=== PATIENT | male | born 1955 | race Caucasian/White ===

== ENCOUNTER 2017-11-06 07:05 | Inpatient (IN) | payer OTHER ==
[2017-10-15 10:31] VITALS: BMI 37.0
--- NOTE | 2017-10-15 11:02 | PAT Medication Instructions ---
Service Date Oct 15, 2017. Current Home Medication List Fish Oil (Dallas-3), 1 CAP PO QAM Gabapentin (Neurontin), 300 MG PO QAM Glipizide (Glucotrol), 5 MG PO BID Metformin Hcl (Glucophage), 1,000 MG PO BID Multiple Vitamin (Multivitamin), 1 TAB PO QAM Naproxen (Aleve), 220 MG PO PRN Omeprazole (Prilosec), 20 MG PO QPM Repaglinide (Prandin), 1 MG PO AC Sitagliptin Phosphate (Januvia), 100 MG PO QAM Medication Instructions For Your Scheduled Surgery - Hold the following medications 2 weeks prior to surgery: Fish Oil (Dallas-3), 1 CAP PO QAM - Hold the following medications 7 days prior to surgery per your surgeon's instructions: Naproxen (Aleve), 220 MG PO PRN - Hold the following medications 48 hours prior to surgery: Metformin Hcl (Glucophage), 1,000 MG PO BID - Hold the following medications the morning of surgery: Sitagliptin Phosphate (Januvia), 100 MG PO QAM Glipizide (Glucotrol), 5 MG PO BID Multiple Vitamin (Multivitamin), 1 TAB PO QAM Repaglinide (Prandin), 1 MG PO AC - TAKE the following medications the morning of surgery with a sip of water: Gabapentin (Neurontin), 300 MG PO QAM - Take the following medications as scheduled the night before surgery: Glipizide (Glucotrol), 5 MG PO BID Omeprazole (Prilosec), 20 MG PO QPM Repaglinide (Prandin), 1 MG PO AC If you have any questions please call us at [phone] or [phone] or [phone]
--- NOTE | 2017-10-15 11:33 | DIAGNOSTIC IMAGING REPORT ---
CHEST 2 VIEWS ROUTINE CLINICAL HISTORY: Preoperative chest COMPARISON STUDY: 08/01/2012 FINDINGS: The cardiac and mediastinal contours are normal. There is no evidence of focal pulmonary consolidation. There is no evidence of failure. No pleural effusions are visualized.[ Increased markings the left lung base are felt to represent a summation with calcified costochondral cartilage. There is ankylosis of the dorsal spine. IMPRESSION: No active disease in the chest. Electronically signed by: Enrico Bansal M.D. 10/15/2017 11:31 AM Dictated Date/Time: 10/15/2017 11:30 AM
[2017-10-15 11:36] LABS: PTT PATIENT 26.1 SECONDS (21.0-31.0)
[2017-10-15 12:11] LABS: HEMATOCRIT 42.2 % (42-52); HEMOGLOBIN 14.5 g/dL (14.0-18.0); MEAN CELL VOLUME 91.5 fL (80-100); MEAN CORPUSCULAR HEMOGLOBIN 31.5 pg (25-34); MEAN CORPUSCULAR HGB CONC 34.4 g/dl (32-36); MEAN PLATELET VOLUME 10.9 fL (7.4-10.4); PLATELET COUNT 144 K/uL (130-400); RED CELL DISTRIBUTION WIDTH CV 13.4 % (11.5-14.5); RED CELL DISTRIBUTION WIDTH SD 44.1 fL (36.4-46.3); WHITE BLOOD COUNT 40.83 K/uL (4.8-10.8)
[2017-10-15 12:12] LABS: BASO % 0.1 %; BASO ABS # 0.06 K/uL (0-0.2); EOS % 0.3 %; EOS ABS # 0.11 K/uL (0-0.5); IG# 0.06 K/uL (0.00-0.02); LYMPH % 89.2 %; LYMPH ABS # 36.42 K/uL (1.2-3.4); MONO % 1.1 %; MONO ABS # 0.46 K/uL (0.11-0.59); NEUT % 9.2 %; NEUT ABS # 3.72 K/uL (1.4-6.5)
--- NOTE | 2017-10-23 15:10 | HISTORY & PHYSICAL EXAMINATION ---
DATE OF ADMISSION: 11/06/2017 CHIEF COMPLAINT: Left knee pain. HISTORY OF PRESENT ILLNESS: Mr. Castro is a 62-year-old male with a multiple-year history of left knee pain. The patient rates his pain a 9/10. He has pain with his daily activities. He has limited standing and walking tolerance. Pain is worse with weightbearing. The patient has failed injections, bracing, PT, and NSAIDS without relief. He has failed conservative treatment and is scheduled for a left knee replacement. PAST MEDICAL HISTORY: Diabetes with an A1c of 8.1, sleep apnea with CPAP. He denies heart disease or DVT. PAST SURGICAL HISTORY: Bilateral rotator cuff repair and C4 cervical fusion. SOCIAL HISTORY: The patient drinks 3-4 drinks per week. He denies tobacco use. He lives in a single-dannie home. 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 FAMILY HISTORY: Negative for DVT. MEDICATIONS: Metformin 1000 mg b.i.d., repaglinide 1 tablet 3 times daily, Tradjenta 5 mg daily, omeprazole 20 mg daily, omega-3 one daily, multivitamin, gabapentin 300 mg t.i.d., Aleve 220 mg daily, Januvia 1 daily. ALLERGIES: None. REVIEW OF SYSTEMS: See HPI. Ten other systems reviewed, all negative. PHYSICAL EXAMINATION: VITAL SIGNS: Height 5 feet 1 inch, weight 266 pounds, BMI is 37. GENERAL: This is a well-developed, well-nourished male who is alert and oriented x3. Mood and affect are appropriate. HEENT: Normocephalic, atraumatic. Mucous membranes are moist and intact. NECK: Supple without lymphadenopathy. HEART: Regular rate and rhythm without murmurs, rubs or gallops. LUNGS: Clear to auscultation without wheezes or rhonchi. ABDOMEN: Soft and nontender. Bowel sounds are equal and active. EXTREMITIES: No ecchymosis, redness or warmth. He has varus deformity. Range of motion is from 3-115 degrees with +1 laxity. He is neurovascularly intact with +1 distal edema. X-RAY EXAMINATION: AP and lateral views show joint space narrowing and osteophyte formation. IMPRESSION: Degenerative joint disease, left knee. PLAN: The patient will be admitted for a left total knee arthroplasty. We will plan on aspirin for DVT prophylaxis. The [facility]. The patient's last A1c was 8.1. He understands he has some higher risk for postop complications. The patient is okay to proceed with surgery per Dr. Winters. MORENOD
[~2017-11-06] VITALS: Ht 180.3 cm; Wt 120.9 kg
[2017-11-06] VITALS (8 sets, daily range): BP systolic 105–173; BP diastolic 58–81; PULSE 67–82; TEMP 36.5–36.7; O2SAT 94–98; BMI 37.0
[2017-11-06] MEDS: TRANEXAMIC ACID INJ 1,000 MG x 2 Bags IV SCH ×4 (06:30→08:55)
[~2017-11-06 07:05] MED LIST: ACETAMINOPHEN 500 MG TAB PO SCH; BUPIVACAINE 0.5 % 5 MG/1 ML PF 10ML VIAL ONE; CEFAZOLIN 3000MG IV PUSH 22.5 ML IV SCH; CeleBREX 200 MG CAP PO SCH; DEXAMETHASONE 4 MG TAB PO SCH; FAMOTIDINE 20 MG TAB PO SCH; GABA-113 PO; GABAPENTIN 600 MG PO SCH; GLIP5TAB11 PO; LACTATED RINGER'S 1000ML 1,000 ML IV SCH; LACTATED RINGER'S 1000ML 500 ML IV SCH; METF-384 PO; METOCLOPRAMIDE HCL 10 MG TAB PO SCH; MULTTAB58 PO; NAPR1TAB9 PO; OMEG10007 PO; OMEP20CA9 PO; REPA1TAB40 PO; ROPIVACAINE 0.5% 5 MG/ML 30 ML VIAL ONE; ROPIVACAINE 5MG/ML 30 ML 150 MG, BUPIVACAINE 0.5% MPF INJ 30 ML, EpINEphrine HCL INJ 0.... INFIL SCH; SITA100T3 PO
[2017-11-06] MEDS ORDERED: FENTANYL CITRATE INJ 50 MCG/1 ML 2 ML VIAL ONE (07:49)
[2017-11-06] MEDS ORDERED: MIDAZOLAM HCL 1 MG/ML 2ML VIAL ONE (07:49)
--- NOTE | 2017-11-06 07:55 | History & Physical Bridge Note ---
H&P Re-Evaluation Bridge Note: I have examined the patient, reviewed the History & Physical and in the interval since the performance of the History & Physical I have noted the following changes of clinical significance: No changes noted
[2017-11-06] MEDS ORDERED: PHENYLEPHRINE 100MCG/ML 5ML SYR ONE (07:56)
[2017-11-06] MEDS ORDERED: LIDOCAINE HCL 2% 2 ML VIAL (20MG/ML) ONE (07:56)
[2017-11-06] MEDS ORDERED: EpHEDrine SULFATE 50MG/5ML SYR ONE (07:56)
[2017-11-06] MEDS ORDERED: PROPOFOL IV EMULSION 10 MG/ML 20 ML VIAL IV ONE (07:56)
[2017-11-06] MEDS ORDERED: ORTHO JOINT ANESTHETIC ONE (07:58)
[2017-11-06] MEDS ORDERED: POVIDONE-IODINE OP SOLN 30 ML BTL ONE (07:59)
[2017-11-06] MEDS ORDERED: BACITRACIN 50000 UNIT VIAL ONE (07:59)
[2017-11-06] MEDS ORDERED: ONDANSETRON INJ 2 MG/ML 2 ML VIAL IV PRN ×2 (08:45→11:30)
[2017-11-06] MEDS ORDERED: PHENYLEPHRINE 100MCG/ML 5ML SYR IV PRN (08:45)
[2017-11-06] MEDS ORDERED: EpHEDrine SULFATE INJ 50 MG/ML AMP IV PRN (08:45)
[2017-11-06] MEDS ORDERED: HYDROmorphone INJ 2 MG/ML SYR/VIAL IV PRN (08:45)
[2017-11-06] MEDS ORDERED: ATROPINE SULFATE 0.1 MG/ML 5ML SYR IV PRN (08:45)
[2017-11-06] MEDS ORDERED: HYDROmorphone INJ 2 MG/ML SYR/VIAL ONE (10:13)
[2017-11-06] MEDS ORDERED: ONDANSETRON INJ 2 MG/ML 2 ML VIAL ONE (10:15)
[2017-11-06] MEDS ORDERED: NEOSTIGMINE METHYLSULFATE 5 MG/5 ML SYR ONE (10:15)
[2017-11-06] MEDS ORDERED: SUCCINYLCHOLINE CHLORIDE 20 MG/ML 10 ML VIAL IV ONE (10:15)
[2017-11-06] MEDS ORDERED: GLYCOPYRROLATE INJ 0.2 MG/ML VIAL ONE (10:15)
[2017-11-06] MEDS ORDERED: DEXAMETHASONE SOD INJ 4 MG/ML VIAL ONE (10:15)
[2017-11-06] MEDS ORDERED: ROCURONIUM BROMIDE 10 MG/ML 5 ML VIAL IV ONE (10:15)
[2017-11-06] MEDS ORDERED: LARYING-O-JET KIT (LTA) ONE (10:21)
--- NOTE | 2017-11-06 10:50 | [facility] Post Operative Brief Note ---
Immediate Operative Summary Operative Date Nov 06, 2017. Pre-Operative Diagnosis Left Knee Degenerative Joint Disease Post-Operative Diagnosis Left Knee Degenerative Joint Disease Procedure(s) Performed Left Total Knee Arthroplasty Surgeon Dr. Winters Business Process Architect Surgeon(s) Vic Moser PA-C Estimated Blood Loss 10 ML Findings Consistent with Post-Op Diagnosis Specimens A. Left Knee Bone and Tissue Anesthesia Type MAC Spinal Regional Complication(s) none Disposition Disposition: Recovery Room / PACU
--- NOTE | 2017-11-06 11:15 | OPERATIVE REPORT ---
DATE OF OPERATION: 11/06/2017 PREOPERATIVE DIAGNOSIS: Osteoarthritis, left knee. POSTOPERATIVE DIAGNOSIS: Osteoarthritis, left knee. PROCEDURE: Left total knee arthroplasty. SURGEON: Dr. Winters. DOLLYMAN: Vic Moser PA-C. ANESTHESIA: Spinal. COMPLICATIONS: None. OPERATION AND FINDINGS: Following induction of spinal anesthesia, the patient's left leg was prepped and draped in the usual sterile manner. Limb was exsanguinated with an Esmarch bandage and tourniquet was inflated to 350 mmHg. A longitudinal incision was made anteriorly. Subcutaneous tissue was sharply dissected. Electrocautery was used for hemostasis. Prepatellar bursa was incised and median parapatellar incision was performed. Patella was everted and the knee was flexed. Fat pad was removed to aid in visualization and the anterior and posterior cruciate ligaments were removed. The medial face of the tibia was cleared of soft tissue first with a Bovie and a Barbosa elevator. This tissue was retracted posteriorly using a blunt Hohmann. A Shore retractor was used to expose the synovium above on the anterior aspect of the femur and this was removed down to bone. The PSI guide was placed on the distal femur and two pins were placed anteriorly and kept in position and two additional pins were placed distally and removed. The distal femoral cutting block was placed in position and the distal femoral cut was used in the +0 setting. Next, the cutting block was removed and the cutting block was placed in the distal end of the femur. Care was taken to ensure appropriate external rotation and feeler gauge was used to ensure no notching would occur. The femoral block was centered on the distal femur and in the medial and lateral direction and was fixed using two bone screws. The gold pins were then removed. The oscillating saw was used to create the bone cuts and the distal femoral cutting block was removed and the reciprocating saw was used to further trim the femoral cuts as well as a deep in the area for the trochlear groove. Next, posterior condyle remnants were removed. Following this, a meniscal clamp and knife were utilized to remove the anterior portion of both medial and lateral meniscus. The proximal tibia PSI guide was placed into position and the proximal tibial cutting guide was screwed into position. The extra medullary alignment guide was utilized to ensure appropriate alignment. The proximal tibia was cut and the proximal tibial cutting block was removed and this bone fragment was removed. The appropriate guide was used to perform the notch cut on the distal femur and a lamina penology professor and a cochlear knife were utilized to finish both medial and lateral meniscectomies to remove any remnants of the posterior or anterior cruciate ligaments. Following this, the distal femoral component was impacted into position and blunt Giulia was used to sublux the tibia anteriorly. The proximal tibia was sized and a tibial tray was chosen as the size to be used. This was put into position and appropriate external rotation and a double check with extramedullary alignment guide was performed. The canal for the tibial stem was prepared first with a 17 mm drill and then the punch and a mallet and the trial tibial poly was placed. A was chosen the size to be used. It was brought to extension and the patella was prepared with the patellar reamer. A component was chosen the size to be used. The trial component was placed and knee was taken through a full range of motion and there was found to be no lateral subluxation of the tibia. No lateral release was required. The trials were all removed. The final components were obtained and assembled. Cement was mixed. The knee was thoroughly irrigated and the ortho mix was injected about the knee joint. The final components were cemented into position. After thoroughly suctioning and drying the bone ends, all excess cement was removed. The knee was held in extension while the cement hardened. The wound was irrigated and closed over a Hemovac drain. #1 Vicryl was used to close the extensor mechanism. Subcutaneous tissues closed using 0 Dexon. Skin was closed with cherise. Sterile dressing of Adaptic, 4 x 4's, sterile Webril, and Eligio was applied. The patient tolerated the procedure well. Due to the complex nature of the procedure, the entire surgery was performed with the operational assistance of Vic Moser PA-C. The assistant finance director, under direct supervision, was involved in the actual performance of all aspects of the surgical procedure including hemostasis, tissue retraction and incision, instrument management, patient positioning, and wound closure. IMPLANTS USED: Femoral size 6, tibia size 5, tibial poly 11, patella size 39. CONDITION: Recovery room, stable. I attest to the content of the Intraoperative Record and any orders documented therein. Any exceptions are noted below. RUSLAN
[2017-11-06] MEDS ORDERED: TAMSULOSIN HCL 0.4 MG CAP PO PRN (11:30)
[2017-11-06] MEDS ORDERED: ALUMINUM/MAGNESIUM/SIMETH (MAALOX MAX) 30 ML UDC PO PRN (11:30)
[2017-11-06] MEDS ORDERED: MoRPHine SULFATE 2 MG/ML CARP IV PRN (11:30)
[2017-11-06] MEDS ORDERED: MAGNESIUM HYDROXIDE SUSP 30 ML UDC PO PRN (11:30)
[2017-11-06] MEDS ORDERED: BISACODYL 10 MG SUPP PR PRN (11:30)
[2017-11-06] MEDS ORDERED: TRAMADOL HCL 50 MG TAB PO PRN (11:30)
[2017-11-06] MEDS ORDERED: REPAGLINIDE 1 MG TAB PO SCH (12:00)
--- NOTE | 2017-11-06 12:24 | DIAGNOSTIC IMAGING REPORT ---
L KNEE 1 OR 2 VIEWS ROUTINE CLINICAL HISTORY: AP/LATERAL IN PACU LEFT KNEE joint replacement COMPARISON: None. DISCUSSION: Anatomic alignment posttotal left knee arthroplasty. Good contact between prosthetic and underlying bone. Expected soft tissue postoperative change. Surgical drains are in position. IMPRESSION: Anatomic alignment posttotal left knee arthroplasty. The above report was generated using voice recognition software. It may contain grammatical, syntax or spelling errors. Electronically signed by: Winston Gregory M.D. 11/06/2017 12:23 PM Dictated Date/Time: 11/06/2017 12:22 PM
[2017-11-06] MEDS ORDERED: PHARMACY GLYCEMIC MGMT CONSULT PRN (13:37)
[2017-11-06] MEDS: SODIUM CHLORIDE 0.9% 1000ML 1,000 ML IV SCH ×2 (13:49→23:18)
--- NOTE | 2017-11-06 14:01 | Anesthesiology Progress Note ---
Anesthesia Post Op Note Date & Time Nov 06, 2017 at 14:01 Vital Signs Pain Intensity: 0 Vital Signs Past 12 Hours Date Time Temp Pulse Resp B/P (MAP) Pulse Ox O2 Delivery O2 Flow Rate FiO2 11/06/17 13:30 36.6 71 16 125/69 (87) 96 Nasal Cannula 2.0 11/06/17 13:00 36.5 76 16 132/81 (98) 94 Nasal Cannula 2.0 11/06/17 12:30 Nasal Cannula 3.0 11/06/17 12:30 36.5 67 16 123/69 (87) 98 Nasal Cannula 3.0 11/06/17 12:30 Nasal Cannula 3.0 11/06/17 12:21 134/61 11/06/17 12:18 68 12 92 11/06/17 12:18 68 12 11/06/17 12:17 129/63 11/06/17 12:13 65 12 95 11/06/17 12:13 64 12 11/06/17 12:08 78 15 97 11/06/17 12:08 77 15 11/06/17 12:08 36.9 11/06/17 12:07 71 14 11/06/17 12:07 72 14 137/71 98 11/06/17 12:02 72 23 11/06/17 12:02 71 23 98 11/06/17 12:01 143/73 11/06/17 11:57 68 12 95 11/06/17 11:57 69 12 11/06/17 11:56 126/73 11/06/17 11:55 137/65 11/06/17 11:52 71 13 95 11/06/17 11:52 72 13 11/06/17 11:47 74 12 92 11/06/17 11:47 74 12 11/06/17 11:46 76 16 122/63 96 11/06/17 11:46 76 16 11/06/17 11:41 78 13 128/67 93 11/06/17 11:41 78 13 11/06/17 11:36 78 14 11/06/17 11:36 78 14 136/59 92 11/06/17 11:31 70 14 121/73 96 11/06/17 11:31 71 14 11/06/17 11:28 136/77 11/06/17 11:26 37.1 71 14 136/77 97 Oxymask 10 11/06/17 07:44 36.7 77 18 173/79 96 Room Air Notes Mental Status: alert / awake / arousable, participated in evaluation Pt Amnestic to Procedure: Yes Nausea / Vomiting: adequately controlled Pain: adequately controlled Airway Patency, RR, SpO2: stable & adequate BP & HR: stable & adequate Hydration State: stable & adequate Anesthetic Complications: no major complications apparent
[2017-11-06] MEDS ORDERED: INSULIN HUMAN REGULAR IV BOLUS 3 UNIT in SYRINGE 0 ML IV ONE (14:15)
[2017-11-06] MEDS ORDERED: GLUCAGON FOR INJ 1 MG VIAL SQ PRN (14:30)
[2017-11-06] MEDS ORDERED: GLUCOSE 10 TABS/TUBE PO PRN (14:30)
[2017-11-06] MEDS ORDERED: GLUCOSE 40% GEL 15 GM TUBE PO PRN (14:30)
[2017-11-06] MEDS ORDERED: DEXTROSE 50% 50 ML SYR IV PRN (14:30)
[2017-11-06] MEDS: ACETAMINOPHEN 500 MG TAB PO SCH ×2 (14:30→21:45)
--- NOTE | 2017-11-06 14:34 | Pharmacy Progress Note ---
Glycemic Control Intl Consult Date of Service Nov 06, 2017. Scope Glycemic Pharmacist consulted by Aaron Moser on 11/06/17 for glycemic control and to write orders per [facility] inpatient glycemic control protocol Objective Weight (Kilograms): 120.90 Accuchecks BSG (last 24hrs): Test 11/06/17 07:46 11/06/17 11:32 Bedside Glucose 264 mg/dl (70-99) 279 mg/dl (70-99) Recent Pertinent Medications Outpatient Anti-diabetic Regimen: * Metformin 1000 mg BID + Januvia 100 mg daily + Prandin 1 mg AC * A1c = unknown Risk Factors for Insulin Resistance: * Steroids: Ortho + dex 8 mg PO pre-op, dex 8 mg IV while in OR * Recent Surgery: POD #0 L-TKA * Diet: T2DM Assessment & Plan ASSESSMENT: * 62 yr old M s/p L-TKA with post-operative hyperglycemia. * Unknown outpatient control. A1c ordered for tomorrow. * Pt is maintained on oral antidiabetic agents as an outpatient. Will hold oral agents for admission and utilize SQ basal bolus insulin regimen which is the recommended regimen for inpatient glycemic control. * Will initiate IV insulin infusion for severe hyperglycemia and transition to weight based SQ basal bolus insulin once BSG is at goal * I will give a dose of Lantus around dinnertime (based on 24 hr weight/stress 2) to aid in drip transition PLAN FOR INPATIENT GLYCEMIC CONTROL: * Holding outpatient oral diabetes medications * Starting IV insulin infusion per moderate stress protocol * Goal Range 110 - 180 mg/dl * Basal insulin * LANTUS 40 units SQ x 1 * Bolus insulin * NOVOLOG PCHS per insulin infusion calculator * Please note that the plan above was derived based on current level of insulin resistance and hospital stress. These recommendations are appropriate for inpatient admission only. Plan of care upon discharge will need to be reassessed to avoid potential outpatient hypo/hyperglycemia. Thank you.
[2017-11-06] MEDS: INSULIN REGULAR 250 UNITS in SODIUM CHLORIDE 0.9% 250ML 250 ML IV SCH ×9 (14:40→22:37)
[2017-11-06] MEDS ORDERED: INSULIN GLARGINE SOLOSTAR 100 UNITS/ML 3 ML PEN SC SCH (16:00)
[2017-11-06] MEDS ORDERED: INSULIN ASPART 100 UNITS/ML 3 ML PEN SC SCH (16:00)
[2017-11-06] MEDS ORDERED: COUGH DROP (SUGAR FREE) LOZ 24 LOZ/1 BOX LOZ ONE (18:39)
[2017-11-06] MEDS: CEFAZOLIN IV 2,000 MG in SYRINGE 0 ML IV SCH (18:40)
[2017-11-06] MEDS: FERROUS GLUCONATE 324 MG TAB PO SCH (18:42)
[2017-11-06] MEDS: INSULIN ASPART 100 UNITS/ML 3 ML PEN SC SCH ×2 (18:54→20:58)
[2017-11-06] MEDS: DOCUSATE SODIUM 100 MG CAP PO SCH (21:02)
[2017-11-06] MEDS: SENNA 8.6 MG TAB PO SCH (21:02)
[2017-11-06] MEDS: ASPIRIN 81 MG ECTAB PO SCH (21:03)
[2017-11-06] MEDS: CeleBREX 200 MG CAP PO SCH (21:03)
[2017-11-06] MEDS: OXYCODONE HCL IR 5 MG TAB (IMMEDIATE RELEASE) PO PRN (23:22)
[2017-11-07] MEDS: INSULIN REGULAR 250 UNITS in SODIUM CHLORIDE 0.9% 250ML 250 ML IV SCH ×7 (00:48→09:42)
[2017-11-07] MEDS: CEFAZOLIN IV 2,000 MG in SYRINGE 0 ML IV SCH (01:45)
[2017-11-07] MEDS: ACETAMINOPHEN 500 MG TAB PO SCH ×3 (06:03→21:19)
[2017-11-07] MEDS: OXYCODONE HCL IR 5 MG TAB (IMMEDIATE RELEASE) PO PRN ×4 (06:05→19:47)
[2017-11-07 07:10] LABS: HEMOGLOBIN A1C 8.3 % (4.5-5.6)
[2017-11-07 07:28] LABS: CALCIUM 8.1 mg/dl (8.5-10.1); CREATININE 0.89 mg/dl (0.60-1.40); POTASSIUM 4.3 mmol/L (3.5-5.1)
[2017-11-07 07:33] LABS: HEMATOCRIT 35.2 % (42-52); HEMOGLOBIN 11.8 g/dL (14.0-18.0); MEAN CELL VOLUME 91.2 fL (80-100); MEAN CORPUSCULAR HEMOGLOBIN 30.6 pg (25-34); MEAN CORPUSCULAR HGB CONC 33.5 g/dl (32-36); MEAN PLATELET VOLUME 10.7 fL (7.4-10.4); PLATELET COUNT 168 K/uL (130-400); RED CELL DISTRIBUTION WIDTH CV 13.5 % (11.5-14.5); RED CELL DISTRIBUTION WIDTH SD 44.2 fL (36.4-46.3); WHITE BLOOD COUNT 45.52 K/uL (4.8-10.8)
--- NOTE | 2017-11-07 07:33 | Orthopedic Progress Note ---
Orthopedic Progress Note Date of Service Nov 07, 2017. Subjective Post OP Day: 1 Reports: feeling well Objective N/V intact, dressing C/D/I (Hemovac in place), toes mobile Mild foot drop noted Date Time Temp Pulse Resp B/P (MAP) Pulse Ox O2 Delivery O2 Flow Rate FiO2 11/06/17 23:45 36.6 82 16 105/58 (74) 97 Room Air 11/06/17 23:20 Room Air CPAP 11/06/17 18:57 36.7 74 18 125/63 (83) 96 Nasal Cannula 2.0 11/06/17 15:39 36.5 79 20 111/61 (78) 96 Nasal Cannula 2.0 11/06/17 14:30 36.6 75 20 132/76 (94) 96 Nasal Cannula 2.0 11/06/17 13:30 36.6 71 16 125/69 (87) 96 Nasal Cannula 2.0 11/06/17 13:00 36.5 76 16 132/81 (98) 94 Nasal Cannula 2.0 11/06/17 12:30 Nasal Cannula 3.0 11/06/17 12:30 36.5 67 16 123/69 (87) 98 Nasal Cannula 3.0 11/06/17 12:30 Nasal Cannula 3.0 11/06/17 12:21 134/61 11/06/17 12:18 68 12 92 11/06/17 12:18 68 12 11/06/17 12:17 129/63 11/06/17 12:13 65 12 95 11/06/17 12:13 64 12 11/06/17 12:08 78 15 97 11/06/17 12:08 77 15 11/06/17 12:08 36.9 11/06/17 12:07 71 14 11/06/17 12:07 72 14 137/71 98 11/06/17 12:02 72 23 11/06/17 12:02 71 23 98 11/06/17 12:01 143/73 11/06/17 11:57 68 12 95 11/06/17 11:57 69 12 11/06/17 11:56 126/73 11/06/17 11:55 137/65 11/06/17 11:52 71 13 95 11/06/17 11:52 72 13 11/06/17 11:47 74 12 92 11/06/17 11:47 74 12 11/06/17 11:46 76 16 122/63 96 11/06/17 11:46 76 16 11/06/17 11:41 78 13 128/67 93 11/06/17 11:41 78 13 11/06/17 11:36 78 14 11/06/17 11:36 78 14 136/59 92 11/06/17 11:31 70 14 121/73 96 11/06/17 11:31 71 14 11/06/17 11:28 136/77 11/06/17 11:26 37.1 71 14 136/77 97 Oxymask 10 11/06/17 07:44 36.7 77 18 173/79 96 Room Air Laboratory Results 24 Hours: Test 11/07/17 06:24 Assessment & Plan Assessment: 62 yo male stable POD #1 s/p left TKA, mild foot drop likely secondary to intra- op injection Plan: 1. Med management 2. DVT prophylaxis- ASA, SCDs 3. PT/OT 4. D/C planning- home w/ HH
--- NOTE | 2017-11-07 07:35 | Discharge Instructions ---
Discharge Instructions Date of Service Nov 07, 2017. Admission Reason for Admission: Left Knee Osteoarthritis Discharge Discharge Diagnosis / Problem: Left knee arthritis Discharge Goals Goal(s): Decrease discomfort, Improve function Activity Recommendations Activity Limitations: as noted below Weightbearing Status: Left weightbearing (as tolerated) . Instructions / Follow-Up Instructions / Follow-Up ACTIVITY RECOMMENDATIONS: SELF CARE INSTRUCTIONS AFTER TOTAL KNEE REPLACEMENT A. You may need to continue a physical therapy program after discharge from the hospital. There are several options available to you. Your doctor will assist you in selecting the best one for you. 1. An out-patient facility 2 to 3 times a week for therapy or home therapy. 2. Continue working on all exercises taught to you in the hospital. Your goals should be to increase bending of your knee to 90 degrees and beyond and to fully straighten your knee. B. You may progress at your own pace from walking with a walker or crutches to a cane; then to no assistive devices. C. Make walking a part of your daily routine. Be up as much as comfortable with rest periods throughout the day. Rest with leg elevation is very important. Use the ice wrap frequently for the first 3-4 weeks. D. There are no restrictions on activities. You may ride in a car, shop, participate in director telemetry and all social activities. E. Wear the long elastic stockings (ABRAHAN hose) 20 hours a day for 2 weeks after surgery. They can be removed several times a day for laundering and for a bath. F. You may shower, no tub baths until cleared by your doctor. SPECIAL CARE INSTRUCTIONS: VERY IMPORTANT TO READ AND REVIEW A. There are a few signs you need to watch for after you are home. Call [facility] if you notice any of the followin. Increased severe knee pain. Some pain is expected especially when you exercise. 2. Increased swelling in your leg or knee; pain or swelling of the calf muscle in either lower leg. 3. Any fluid drainage from the incision. 4. Shortness of breath or chest pain. B. Please call [facility] at if you have any concerns or questions about your operation or recovery. The doctor or his nurse will return your call promptly. C. You must take antibiotics before dental work, bladder, bowel or other surgery. Your doctor will provide you with a permanent care to carry describing this precaution. IMPORTANT: * REMEMBER TO TAKE ASPIRIN, 81 MG, TWICE DAILY FOR 4 WEEKS UNLESS OTHERWISE DIRECTED. THIS IS YOUR BLOOD THINNER. * HIGH RISK PATIENTS MAY BE PRESCRIBED A STRONGER BLOOD THINNER. THIS WILL BE PROVIDED AT DISCHARGE. * CALL IF INCREASED PAIN, REDNESS, DRAINAGE OR FEVER GREATER THAT 101. * WEAR ABRAHAN HOSE 20 HOURS PER DAY FOR 2 WEEKS. Silverlon- This is a large adhesive bandage that contains silver ions. This helps your incision heal by fighting off bacteria and protecting it from the outside environment. You are permitted to shower with this dressing. This will remain on your incision for 7 days and then should be removed. Some visible blood or drainage through the dressing window is normal. If there is significant drainage or leaking noted before the 7 days notify your doctor's office immediately. Once removed, keep incision clean and dry. If there is any drainage or redness noted, please call your surgeon. Maintain Zipline closure when removing Silverlon. FOLLOW UP VISIT: If appointment is not already scheduled: Please call [facility] to make a follow-up appointment for 2 weeks after your surgery at . Current Hospital Diet Patient's current hospital diet: Diabetes Type 2 Diet Discharge Diet Recommended Diet: Diabetes Type 2 Diet Procedures Procedures Performed: Left Total Knee Arthroplasty Pending Studies Studies pending at discharge: no Laboratory Results Hemoglobin A1c Test 11/07/17 06:24 Range/Units Estimated Average Glucose 192 mg/dl Hemoglobin A1c 8.3 H 4.5-5.6 % Medical Emergencies . Who to Call and When: Medical Emergencies: If at any time you feel your situation is an emergency, please call 911 immediately. . Non-Emergent Contact Non-Emergency issues call your: Surgeon Call Non-Emergent contact if: temperature is above 101.5, your pain is not controlled, wound has increased drainage, wound has increased redness . "Provider Documentation" section prepared by Tae Caputo PA-C. . [place] Drug Monitoring Program Search Results: patient reviewed within database, no issues identified
[2017-11-07 07:56] VITALS: BP 120/70; PULSE 70; TEMP 36.6; O2SAT 98
--- NOTE | 2017-11-07 08:21 | Anesthesiology Progress Note ---
Anesthesia Post Op Note Date & Time Nov 07, 2017 at 08:20 Vital Signs Pain Intensity: 0.0 Vital Signs Past 12 Hours Date Time Temp Pulse Resp B/P (MAP) Pulse Ox O2 Delivery O2 Flow Rate FiO2 11/07/17 07:56 36.6 70 15 120/70 (87) 98 Room Air 11/06/17 23:45 36.6 82 16 105/58 (74) 97 Room Air 11/06/17 23:20 Room Air CPAP Notes Mental Status: alert / awake / arousable, participated in evaluation Pt Amnestic to Procedure: Yes Nausea / Vomiting: adequately controlled Pain: adequately controlled Airway Patency, RR, SpO2: stable & adequate BP & HR: stable & adequate Hydration State: stable & adequate Anesthetic Complications: no major complications apparent
[2017-11-07 08:25] VITALS: O2SAT 98
[2017-11-07] MEDS: CeleBREX 200 MG CAP PO SCH ×2 (08:47→19:47)
[2017-11-07] MEDS: FERROUS GLUCONATE 324 MG TAB PO SCH ×3 (08:47→18:12)
[2017-11-07] MEDS: MULTIVITAMIN TAB PO SCH (08:47)
[2017-11-07] MEDS: GABAPENTIN 300 MG CAP PO SCH (08:47)
[2017-11-07] MEDS: ASPIRIN 81 MG ECTAB PO SCH ×2 (08:47→19:47)
[2017-11-07] MEDS: DOCUSATE SODIUM 100 MG CAP PO SCH ×2 (08:47→19:46)
[2017-11-07] MEDS: PANTOprazole SOD 40 MG TAB PO SCH (08:47)
[2017-11-07] MEDS: INSULIN ASPART 100 UNITS/ML 3 ML PEN SC SCH ×4 (08:56→21:16)
[2017-11-07] MEDS ORDERED: INSULIN GLARGINE SOLOSTAR 100 UNITS/ML 3 ML PEN SC ONE (09:00)
[2017-11-07] MEDS ORDERED: SITAGLIPTIN 100 MG TAB PO SCH (09:00)
--- NOTE | 2017-11-07 11:49 | Pharmacy Progress Note ---
Pharmacy Glycemic Short Note 2 Date of Service Nov 07, 2017. OUTPATIENT ANTIDIABETIC REGIMEN: * Metformin 1,000mg PO BIDM * Prandin 1mg PO AC * Januvia 100mg PO QAM * A1c = 8.3% on 11/07/17 Item Value Date Time Bedside Glucose 111 mg/dl H 11/07/17 0744 Bedside Glucose 156 mg/dl H 11/07/17 0647 Bedside Glucose 183 mg/dl H 11/07/17 0553 Bedside Glucose 114 mg/dl H 11/07/17 0458 Bedside Glucose 131 mg/dl H 11/07/17 0341 Bedside Glucose 169 mg/dl H 11/07/17 0238 Bedside Glucose 194 mg/dl H 11/07/17 0141 Bedside Glucose 224 mg/dl H 11/07/17 0042 Bedside Glucose 212 mg/dl H 11/06/17 2346 Bedside Glucose 232 mg/dl H 11/06/17 2234 Bedside Glucose 226 mg/dl H 11/06/17 2140 Bedside Glucose 256 mg/dl H 11/06/17 2038 Bedside Glucose 282 mg/dl H 11/06/17 1939 Bedside Glucose 328 mg/dl H 11/06/17 1845 Bedside Glucose 292 mg/dl H 11/06/17 1738 Bedside Glucose 338 mg/dl H 11/06/17 1639 Bedside Glucose 289 mg/dl H 11/06/17 1541 Bedside Glucose 350 mg/dl H 11/06/17 1316 Bedside Glucose 347 mg/dl H 11/06/17 1313 Bedside Glucose 279 mg/dl H 11/06/17 1132 Bedside Glucose 264 mg/dl H 11/06/17 0746 ASSESSMENT: * 62yo T2DM male with suboptimal degree of outpatient control per recent A1c * Pt admitted on 11/06/17 for L TKA. At the time of admission BSGs significantly elevated secondary to poor outpatient control, holding outpatient oral antidiabetic agents (metformin was held 48hrs prior to surgery instead of just 24 hrs prior to surgery as now recommended by ADA), stress of surgery, and IV + PO dexamethasone given intraoperatively and pre-operatively. * IV insulin infusion was required for severe hyperglycemia immediately post- operatively. Weight based SQ basal bolus insulin was initiated along with IV insulin infusion to facilitate transition off of drip and minimize time on infusion. * Goal is to maintain BSG <200 mg/dl (ideally less than 150mg/dl) to reduce the risk of post-op complications (mortality, infection, etc). * BSGs all ~ 180 mg/dl or below this AM. IV insulin infusion running at 11-16 units/hr * Will transition off of IV insulin infusion per protocol. Pt required ~ 225 units of insulin (this is IV + SQ) since admission. Expect needs to continue to taper as the hyperglycemic effects of DXM start to wear off. * Will start with a total daily dose of ~60% of what was needed on IV insulin infusion and titrate based on BSG trends. PLAN FOR INPATIENT GLYCEMIC CONTROL: * Hold outpatient oral diabetes medications * Basal insulin * Lantus 40 units SQ x 1 dose this morning to transition off of IV insulin infusion, then, * Lantus SQ BID - dose based on BSG * BSG below 110mg/dl --> 10 units * BSG 110-180mg/dl --> 20 units * BSG above 180mg/dl --> 30 units * Bolus insulin * NovoLog per scale ACHS or Q6hrs while NPO * Goal Range: Low 110 mg/dL - High 140 mg/dL * Correction Factor: 15 mg/dL/unit * Nutritional / Prandial insulin per carb ratio of 1 unit per 3 grams CHO consumed PLAN FOR DISCHARGE: * Patient may require the addition of basal insulin to get A1c to goal of <7%
[2017-11-07 11:53] VITALS: Ht 180.3 cm; Wt 120.9 kg
[2017-11-07 11:58] VITALS: BP 140/70; PULSE 70; TEMP 36.6; O2SAT 97
[2017-11-07] MEDS ORDERED: DC IV INSULIN INFUSION ONE (15:00)
[2017-11-07 15:03] VITALS: BP 127/73; PULSE 75; TEMP 36.6; O2SAT 96
[2017-11-07] MEDS: SENNA 8.6 MG TAB PO SCH (19:46)
[2017-11-07] MEDS: INSULIN GLARGINE SOLOSTAR 100 UNITS/ML 3 ML PEN SC SCH (21:15)
[2017-11-07 23:27] VITALS: BP 130/67; PULSE 75; TEMP 36.7; O2SAT 95
[2017-11-08] MEDS: ACETAMINOPHEN 500 MG TAB PO SCH (06:00)
[2017-11-08 06:23] VITALS: BP 125/68; PULSE 80; TEMP 36.8; O2SAT 98
[2017-11-08] MEDS: FERROUS GLUCONATE 324 MG TAB PO SCH (07:25)
[2017-11-08] MEDS: GABAPENTIN 300 MG CAP PO SCH (07:26)
[2017-11-08] MEDS: MULTIVITAMIN TAB PO SCH (07:26)
[2017-11-08] MEDS: PANTOprazole SOD 40 MG TAB PO SCH (07:26)
[2017-11-08] MEDS: ASPIRIN 81 MG ECTAB PO SCH (07:26)
[2017-11-08] MEDS: DOCUSATE SODIUM 100 MG CAP PO SCH (07:26)
[2017-11-08] MEDS: CeleBREX 200 MG CAP PO SCH (07:26)
[2017-11-08] MEDS: OXYCODONE HCL IR 5 MG TAB (IMMEDIATE RELEASE) PO PRN (07:32)
--- NOTE | 2017-11-08 07:35 | Orthopedic Progress Note ---
Orthopedic Progress Note Date of Service Nov 08, 2017. Subjective Post OP Day: 2 Reports: feeling well, pain controlled w PO medications, Denies: complaints, chest pain, SOB, nausea / vomiting, light headedness, calf pain Objective calves soft nontender, N/V intact, capillary refill less than 2 sec., incision C /D/I, A&O x3, toes mobile Date Time Temp Pulse Resp B/P (MAP) Pulse Ox O2 Delivery O2 Flow Rate FiO2 11/08/17 06:23 36.8 80 16 125/68 (87) 98 Room Air 11/07/17 23:27 36.7 75 16 130/67 (88) 95 Room Air 11/07/17 19:50 Room Air CPAP 11/07/17 15:03 36.6 75 18 127/73 (91) 96 Room Air 11/07/17 11:58 36.6 70 14 140/70 (93) 97 Room Air 11/07/17 08:25 98 Room Air 11/07/17 08:25 Room Air 11/07/17 07:56 36.6 70 15 120/70 (87) 98 Room Air Assessment & Plan Assessment: 62 yo male stable POD #2 s/p left TKA Plan: 1. Med management 2. DVT prophylaxis- ASA, SCDs 3. PT/OT 4. D/C planning- home w/ HH 5. Foot drop has resolved
[2017-11-08] MEDS: INSULIN ASPART 100 UNITS/ML 3 ML PEN SC SCH (07:38)
[2017-11-08] MEDS: INSULIN GLARGINE SOLOSTAR 100 UNITS/ML 3 ML PEN SC SCH (07:39)
[2017-11-08] MEDS ORDERED: RXC5 PO (07:46)
[2017-11-08] MEDS ORDERED: ONDA8TAB6 PO (07:46)
[2017-11-08] MEDS ORDERED: ACET-24 PO (07:46)
[2017-11-08] MEDS ORDERED: ASPEC81 PO (07:46)
[2017-11-08] MEDS ORDERED: CLB200 PO ×2 (07:46→10:39)
[2017-11-08 08:38] VITALS: BP 125/68; PULSE 80; TEMP 36.8; O2SAT 98
[2017-11-08 09:00] VITALS: BP 125/68; PULSE 80; O2SAT 98
[2017-11-08] MEDS ORDERED: METFORMIN HCL 500 MG TABCR PO SCH (17:45)
== END 2017-11-08 10:45 | disposition home health service (06) | DRG 470 ==
LOC: C.ACU 07:05 → C.3E 11:34 → ENRESERV 12:00
PROC: 0SRD0J9 Replacement of Left Knee Joint with Synthetic Substitute, Cemented, Open Approach (ICD-10-PCS; principal; 2017-11-06 09:30)
DX: M17.12 Unilateral primary osteoarthritis, left knee (principal); E11.9 Type 2 diabetes mellitus without complications; G47.30 Sleep apnea, unspecified; Z79.899 Other long term (current) drug therapy; Z79.84 Long term (current) use of oral hypoglycemic drugs

== ENCOUNTER 2021-06-27 00:56 | Inpatient (IN) ==
[2021-06-27] MEDS ORDERED: LACTATED RINGER'S 1,000 ML IV ONE (01:31)
[2021-06-27 02:06] LABS: Alanine Aminotransferase 153 U/L (12-78); Albumin Level 1.9 gm/dl (3.4-5.0); Aspartate Aminotransferase 100 U/L (15-37); BUN Creatinine Ratio 16.7 (10-20); Blood Urea Nitrogen 13 mg/dl (7-18); Calcium 6.9 mg/dl (8.5-10.1); Carbon Dioxide 22 mmol/L (21-32); Chloride 98 mmol/L (98-107); Est GFR (African American) 108.5 ml/min; Est GFR (Non-African American) 93.6 ml/min; Glucose 167 mg/dl (70-99); Magnesium 1.9 mg/dl (1.8-2.4); Potassium 4.2 mmol/L (3.5-5.1); Sodium 132 mmol/L (136-145)
[2021-06-27 02:11] LABS: Albumin Globulin Ratio 0.4 (0.9-2); Alkaline Phosphatase 139 U/L (45-117); Bilirubin,Total 1.4 mg/dl (0.2-1); Globulin 4.9 gm/dl (2.5-4.0); NT Pro B Type Natriuretic Pept 243 pg/ml (0-900); Total Protein 6.8 gm/dl (6.4-8.2); Troponin I < 0.015 ng/ml (0-0.045)
[2021-06-27 02:29] LABS: Hematocrit (blood only) 38.4 % (42-52); Hemoglobin 12.3 g/dL (14.0-18.0); Mean Corpuscular Hemoglobin 30.1 pg (25-34); Mean Corpuscular Volume 93.9 fL (80-100); Mean Platelet Volume 11.1 fL (7.4-10.4); Platelet Count 221 K/uL (130-400); RDW Coefficient of Variation 14.6 % (11.5-14.5); RDW Standard Deviation 49.9 fL (36.4-46.3); Red Blood Count 4.09 M/uL (4.7-6.1); White Blood Count 64.47 K/uL (4.8-10.8)
[2021-06-27] MEDS ORDERED: OPTIRAY 320 125ml IV ONE (02:47)
[2021-06-27] MEDS ORDERED: dexAMETHasone**PF** 10 MG/ML VIAL IV ONE (03:15)
[2021-06-27 03:26] LABS: Basophils # (auto) 0.07 K/uL (0-0.2); Basophils % (auto) 0.1 %; Immature Granulocytes # (auto) 0.21 K/uL (0.00-0.02); Immature Granulocytes % (auto) 0.3 %; Lymphocytes # (auto) 57.17 K/uL (1.2-3.4); Lymphocytes % (auto) 88.7 %; Monocytes # (auto) 0.55 K/uL (0.11-0.59); Monocytes % (auto) 0.9 %; Neutrophils # (auto) 6.47 K/uL (1.4-6.5); Smudge Cells Present
--- NOTE | 2021-06-27 03:48 | Emergency Department Note ---
History of Present Illness General Chief complaint: Shortness of Breath/Dyspnea Stated complaint: SOB Time Seen by Provider: 06/27/21 01:09 Source: patient Mode of arrival: ambulatory Limitations: no limitations History of Present Illness Provider complaint: Shortness of breath, known Covid Onset (ago): day(s) 4 Associated symptoms: + cough, + fever/chills, + headaches, + loss of appetite, + malaise and + shortness of breath; no nausea/vomiting Treatments prior to arrival: none This is a 66-year-old male presents the emergency department due to concern for increased shortness of breath. Patient states he was diagnosed with Covid last week, however has been symptomatic for 2 weeks now. Patient states he has had cough, diarrhea, weakness, myalgias, poor appetite, and intermittent nausea but no vomiting. Patient states he has been using Tylenol for pain. Patient denies any prior history of asthma or COPD. Denies any prior history of tobacco abuse. No recent change in medications. He denies any overt chest pain or palpitations. Patient found to be hypoxic at 70% on room air on arrival here, was placed initially on a nasal cannula at 4 L/min and improved to mid to upper 80s, then transition to anoxia mask at 6 to 7 L/min with improvement into the mid 90s. Patient states he does feel improved with additional oxygen. Patient was not using a pulse oximeter at home. Pt seen during a time of high acuity and national emergency pandemic while wearing PPE. Home Medications Medication Instructions Recorded Confirmed Type empagliflozin 25 mg tablet 25 mg PO QAM 12/26/20 06/27/21 History (Jardiance) gabapentin 300 mg capsule 300 mg PO BID 12/26/20 06/27/21 History metformin 1,000 mg tablet 1,000 mg PO BID 12/26/20 06/27/21 History multivitamin 1 tab PO QAM 12/26/20 06/27/21 History repaglinide 2 mg tablet 1 - 4 mg PO DIRECTED 12/26/20 06/27/21 History Allergies Allergy/AdvReac Type Severity Reaction Status Date / Time No Known Allergies Allergy Unknown Verified 06/27/21 07:33 Past Med/Surg History Medical History (Updated 06/27/21 @ 08:30 by Melissa Iglesias DO) CLL (chronic lymphocytic leukemia) Social History Smoking Status: Never smoker Feels Safe at Home: Yes Review of Systems A total of 10 systems reviewed and were otherwise negative All systems reviewed & are unremarkable except as noted in HPI & below Physical Exam Vital Signs Vital Signs - 24 hr 06/27/21 00:59 06/27/21 01:20 06/27/21 01:45 Temperature 37.1 C Temperature Source Temporal Artery Scan Pulse Rate 104 H Pulse Rate [Apical] 87 Pulse Rate from SpO2 Sensor Respiratory Rate 18 20 Respiratory Effort / Characteristics Non-Labored Spontaneous Non-Labored Spontaneous Respiratory Depth Normal Normal Respiratory Pattern Regular Blood Pressure 128/61 Blood Pressure [Left Arm] 156/73 H Blood Pressure Mean 83 Blood Pressure Mean [Left Arm] 100 Blood Pressure Position Sitting Blood Pressure Position [Left Arm] Lying Pulse Oximetry 70 L 93 93 Oxygen Delivery Method Room Air Oxymask Oxymask Oxygen Flow Rate 6 6 Sepsis Recent Fever Within 48 Hours No Sepsis New/Unexplained Change in Mental Status N/A Sepsis Action Taken by Nursing No Action Required 06/27/21 03:00 06/27/21 03:30 06/27/21 04:30 Temperature Temperature Source Pulse Rate 86 86 79 Pulse Rate [Apical] Pulse Rate from SpO2 Sensor 86 87 79 Respiratory Rate 30 H 25 H 30 H Respiratory Effort / Characteristics Respiratory Depth Respiratory Pattern Blood Pressure Blood Pressure [Left Arm] Blood Pressure Mean Blood Pressure Mean [Left Arm] Blood Pressure Position Blood Pressure Position [Left Arm] Pulse Oximetry 95 92 93 Oxygen Delivery Method Oxymask Oxymask Oxymask Oxygen Flow Rate 7 7 8 Sepsis Recent Fever Within 48 Hours Sepsis New/Unexplained Change in Mental Status Sepsis Action Taken by Nursing 06/27/21 04:56 06/27/21 05:07 06/27/21 05:30 Temperature Temperature Source Pulse Rate 82 Pulse Rate [Apical] 81 81 Pulse Rate from SpO2 Sensor 82 Respiratory Rate 27 H 30 H Respiratory Effort / Characteristics Spontaneous Short of Breath Respiratory Depth Respiratory Pattern Blood Pressure Blood Pressure [Left Arm] 155/75 H Blood Pressure Mean Blood Pressure Mean [Left Arm] 101 Blood Pressure Position Blood Pressure Position [Left Arm] Pulse Oximetry 93 94 94 Oxygen Delivery Method Oxymask Oxymask Oxygen Flow Rate 8 8 Sepsis Recent Fever Within 48 Hours Sepsis New/Unexplained Change in Mental Status Sepsis Action Taken by Nursing GENERAL: alert, ill appearing, well nourished, no distress, non-toxic EYE EXAM: normal conjunctiva, PERRL and EOM's grossly intact OROPHARYNX: no exudate, no erythema, lips, buccal mucosa, and tongue normal and mucous membranes are moist NECK: supple, no nuchal rigidity, no adenopathy, non-tender LUNGS: Clear to auscultation. Normal chest wall mechanics, no w/r/r HEART: no murmurs, S1 normal and S2 normal ABDOMEN: abdomen soft, non-tender, normo-active bowel sounds, no masses, no rebound or guarding. BACK: Back is symmetrical on inspection and there is no deformity, no midline tenderness, no CVA tenderness. SKIN: no rashes and no bruising UPPER EXTREMITIES: upper extremities are grossly normal. FROM, nml pulses b/l. LOWER EXTREMITIES: No pitting edema. FROM, nml pulses b/l. NEURO EXAM: Normal sensorium, cranial nerves II-XII grossly intact, normal speech, no gross weakness of arms, no gross weakness of legs. Gross sensation intact. Course Course 0400: Case discussed with Dr. Friedman. Administered Medications Discontinued Medications Dexamethasone Sodium Phosphate (DexamethasonePf 10 Mg/Ml Vial) 6 mg IV NOW ONE Stop: 06/27/21 03:16 Last Admin: 06/27/21 04:04 Dose: 6 mg Documented by: [id number] Lactated Ringer's (Lr) 1,000 mls @ 999 mls/hr IV .Q1H1M ONE Stop: 06/27/21 02:31 Last Infusion: 06/27/21 02:52 Dose: 0 mls/hr Documented by: [id number] Admin: 06/27/21 01:50 Dose: 999 mls/hr Documented by: [id number] Magnesium Sulfate/Dextrose (Magnesium Sulfate / D5w) 1 gm in 100 mls @ 50 mls/hr IV ONE STA Stop: 06/27/21 06:17 Last Infusion: 06/27/21 06:40 Dose: 0 mls/hr Documented by: [id number] Admin: 06/27/21 05:04 Dose: 50 mls/hr Documented by: [id number] Doxycycline Hyclate 100 mg/ (Dextrose) 110 mls @ 50 mls/hr IV NOW STA Stop: 06/27/21 07:50 Last Admin: 06/27/21 05:55 Dose: 50 mls/hr Documented by: [id number] Calcium Gluconate 2,000 mg/ (Sodium Chloride) 70 mls @ 240 mls/hr IV NOW STA Stop: 06/27/21 06:07 Last Infusion: 06/27/21 06:55 Dose: 0 mls/hr Documented by: [id number] Admin: 06/27/21 06:34 Dose: 240 mls/hr Documented by: [id number] Ioversol (Optiray 320 125ml) 125 ml IV ONCE ONE Stop: 06/27/21 02:48 Last Admin: 06/27/21 02:48 Dose: 114 ml Documented by: [id number] Levalbuterol HCl (Levalbuterol Tartrate 15 Gm Hfa.Aer.Ad) 2 puffs INH NOW STA Stop: 06/27/21 04:15 Last Admin: 06/27/21 04:54 Dose: 2 puffs Documented by: [id number] Medical Decision Making Differential Diagnosis Differential diagnoses includes but is not limited to pneumonia, bronchitis, COPD/Asthma exacerbation, pneumothorax, pulmonary embolism, congestive heart failure, acute coronary syndrome Medical Records Attestation: I reviewed the patient's medical records. Home Medications Current Medication List: was personally reviewed by me Laboratory Data Attestation: I reviewed the patient's lab results. Result diagrams: 06/27/21 01:15 06/27/21 01:15 Lab Results 06/27/21 06/27/21 06/27/21 Range/Units 01:15 01:15 01:15 WBC 64.47 H* (4.8-10.8) K/uL RBC 4.09 L (4.7-6.1) M/uL Hgb 12.3 L (14.0-18.0) g/dL Hct 38.4 L (42-52) % MCV 93.9 (80-100) fL MCH 30.1 (25-34) pg MCHC 32.0 (32-36) g/dL RDW Std Deviation 49.9 H (36.4-46.3) fL RDW Coeff of Lindsey 14.6 H (11.5-14.5) % Plt Count 221 (130-400) K/uL MPV 11.1 H (7.4-10.4) fL Immature Gran % (Auto) 0.3 % Neut % (Auto) 10.0 % Lymph % (Auto) 88.7 % Kerr % (Auto) 0.9 % Eos % (Auto) 0.0 % Baso % (Auto) 0.1 % Neut # (Auto) 6.47 (1.4-6.5) K/uL Lymph # (Auto) 57.17 H (1.2-3.4) K/uL Kerr # (Auto) 0.55 (0.11-0.59) K/uL Eos # (Auto) 0.00 (0-0.5) K/uL Baso # (Auto) 0.07 (0-0.2) K/uL Immature Gran # (Auto) 0.21 H (0.00-0.02) K/uL Smudge Cells Present ABG pH (7.35-7.45) ABG pCO2 (35-46) mmHg ABG pO2 (80-95) mmHg ABG HCO3 (19-24) mmol/L ABG O2 Saturation (90-95) % ABG Base Excess (-9-1.8) mEq/L Clif[place] Test (Pos) Oxygen Given Sodium 132 L (136-145) mmol/L Potassium 4.2 (3.5-5.1) mmol/L Chloride 98 (98-107) mmol/L Carbon Dioxide 22 (21-32) mmol/L Anion Gap 12.0 H (3-11) BUN 13 (7-18) mg/dl Creatinine 0.79 (0.6-1.4) mg/dl Est Cr Clr Drug Dosing Not Reportable Est GFR ( Amer) 108.5 ml/min Est GFR (Non-Af Amer) 93.6 ml/min BUN/Creatinine Ratio 16.7 (10-20) Glucose 167 H (70-99) mg/dl Lactate (0.4-2.0) mmol/L Calcium 6.9 L (8.5-10.1) mg/dl Ionized Calcium (1.12-1.32) mmol/L Magnesium 1.9 (1.8-2.4) mg/dl Total Bilirubin 1.4 H (0.2-1) mg/dl AST 100 H (15-37) U/L ALT 153 H (12-78) U/L Alkaline Phosphatase 139 H (45-117) U/L Troponin I < 0.015 (0-0.045) ng/ml NT-Pro-B Natriuret Pep 243 (0-900) pg/ml Total Protein 6.8 (6.4-8.2) gm/dl Albumin 1.9 L (3.4-5.0) gm/dl Globulin 4.9 H (2.5-4.0) gm/dl Albumin/Globulin Ratio 0.4 L (0.9-2) Procalcitonin 1.30 H (0-0.5) ng/ml COVID-19 Eval Order SARS-CoV-2 (PCR) (Negative) 06/27/21 06/27/21 06/27/21 Range/Units 01:47 01:47 04:15 WBC (4.8-10.8) K/uL RBC (4.7-6.1) M/uL Hgb (14.0-18.0) g/dL Hct (42-52) % MCV (80-100) fL MCH (25-34) pg MCHC (32-36) g/dL RDW Std Deviation (36.4-46.3) fL RDW Coeff of Lindsey (11.5-14.5) % Plt Count (130-400) K/uL MPV (7.4-10.4) fL Immature Gran % (Auto) % Neut % (Auto) % Lymph % (Auto) % Kerr % (Auto) % Eos % (Auto) % Baso % (Auto) % Neut # (Auto) (1.4-6.5) K/uL Lymph # (Auto) (1.2-3.4) K/uL Kerr # (Auto) (0.11-0.59) K/uL Eos # (Auto) (0-0.5) K/uL Baso # (Auto) (0-0.2) K/uL Immature Gran # (Auto) (0.00-0.02) K/uL Smudge Cells ABG pH (7.35-7.45) ABG pCO2 (35-46) mmHg ABG pO2 (80-95) mmHg ABG HCO3 (19-24) mmol/L ABG O2 Saturation (90-95) % ABG Base Excess (-9-1.8) mEq/L Clifton Test (Pos) Oxygen Given Sodium (136-145) mmol/L Potassium (3.5-5.1) mmol/L Chloride (98-107) mmol/L Carbon Dioxide (21-32) mmol/L Anion Gap (3-11) BUN (7-18) mg/dl Creatinine (0.6-1.4) mg/dl Est Cr Clr Drug Dosing Est GFR ( Amer) ml/min Est GFR (Non-Af Amer) ml/min BUN/Creatinine Ratio (10-20) Glucose (70-99) mg/dl Lactate 1.5 (0.4-2.0) mmol/L Calcium (8.5-10.1) mg/dl Ionized Calcium (1.12-1.32) mmol/L Magnesium (1.8-2.4) mg/dl Total Bilirubin (0.2-1) mg/dl AST (15-37) U/L ALT (12-78) U/L Alkaline Phosphatase (45-117) U/L Troponin I (0-0.045) ng/ml NT-Pro-B Natriuret Pep (0-900) pg/ml Total Protein (6.4-8.2) gm/dl Albumin (3.4-5.0) gm/dl Globulin (2.5-4.0) gm/dl Albumin/Globulin Ratio (0.9-2) Procalcitonin (0-0.5) ng/ml COVID-19 Eval Order Covid19 at [facility] SARS-CoV-2 (PCR) POSITIVE A* (Negative) 06/27/21 06/27/21 Range/Units 04:58 04:58 WBC (4.8-10.8) K/uL RBC (4.7-6.1) M/uL Hgb (14.0-18.0) g/dL Hct (42-52) % MCV (80-100) fL MCH (25-34) pg MCHC (32-36) g/dL RDW Std Deviation (36.4-46.3) fL RDW Coeff of Lindsey (11.5-14.5) % Plt Count (130-400) K/uL MPV (7.4-10.4) fL Immature Gran % (Auto) % Neut % (Auto) % Lymph % (Auto) % Kerr % (Auto) % Eos % (Auto) % Baso % (Auto) % Neut # (Auto) (1.4-6.5) K/uL Lymph # (Auto) (1.2-3.4) K/uL Kerr # (Auto) (0.11-0.59) K/uL Eos # (Auto) (0-0.5) K/uL Baso # (Auto) (0-0.2) K/uL Immature Gran # (Auto) (0.00-0.02) K/uL Smudge Cells ABG pH 7.48 H (7.35-7.45) ABG pCO2 34 L (35-46) mmHg ABG pO2 68 L (80-95) mmHg ABG HCO3 25 H (19-24) mmol/L ABG O2 Saturation 94.5 (90-95) % ABG Base Excess 1.3 (-9-1.8) mEq/L Clifton Test Pos (Pos) Oxygen Given 8L Sodium (136-145) mmol/L Potassium (3.5-5.1) mmol/L Chloride (98-107) mmol/L Carbon Dioxide (21-32) mmol/L Anion Gap (3-11) BUN (7-18) mg/dl Creatinine (0.6-1.4) mg/dl Est Cr Clr Drug Dosing Est GFR ( Amer) ml/min Est GFR (Non-Af Amer) ml/min BUN/Creatinine Ratio (10-20) Glucose (70-99) mg/dl Lactate (0.4-2.0) mmol/L Calcium (8.5-10.1) mg/dl Ionized Calcium 0.96 L (1.12-1.32) mmol/L Magnesium (1.8-2.4) mg/dl Total Bilirubin (0.2-1) mg/dl AST (15-37) U/L ALT (12-78) U/L Alkaline Phosphatase (45-117) U/L Troponin I (0-0.045) ng/ml NT-Pro-B Natriuret Pep (0-900) pg/ml Total Protein (6.4-8.2) gm/dl Albumin (3.4-5.0) gm/dl Globulin (2.5-4.0) gm/dl Albumin/Globulin Ratio (0.9-2) Procalcitonin (0-0.5) ng/ml COVID-19 Eval Order SARS-CoV-2 (PCR) (Negative) Imaging Data Radiologist's Impression: Chest CTA 06/27/21 01:31 CT angio chest PE protocol CLINICAL HISTORY: PE TECHNIQUE: Multidetector row helical CT of the chest was performed. Coronal and sagittal reformations were obtained. Automated dose lowering techniques and/or adjustment according to patient size were utilized for this exam. Comparison: None available at the time of this dictation. FINDINGS: Lungs and pleura: Diffuse consolidative opacities are seen bilaterally. Heart and pericardium: Heart size is normal. No pericardial effusion. Vessels: Limited evaluation due to patient motion, however no central, lobar, segmental pulmonary embolus is identified. Mediastinum and any: Multiple enlarged mediastinal and hilar nodes are seen bilaterally. Chest wall and lower neck: Unremarkable. Abdomen: A hiatal hernia is seen. Subcentimeter retroperitoneal lymph nodes are partially visualized. There is suggestion of splenomegaly and hepatomegaly. Bones: Degenerative changes in the thoracic spine. Posterior stabilization hardware is partially visualized. IMPRESSION: 1. Multifocal consolidations compatible with Covid pneumonia with reactive lymphadenopathy. 2. No evidence of central, lobar, or segmental pulmonary embolus. Limited evaluation for subsegmental embolus due to patient motion. ACT 112: Negative or not required by law. Electronically signed by: Elmer Jo M.D. 06/27/2021 8:03 AM CTA chest: Prior CT from 12/26/2020 Breathing motion artifact somewhat limits evaluation of the smaller peripheral arteries. No PE visualized. Bilateral consolidations and groundglass opacities. Involves most of the lower lobes bilaterally. Correlate for infectious/inflammatory process, including COVID-19. Mediastinal and hilar adenopathy, increased since the prior study. Differential diagnosis infectious, inflammatory or neoplastic process. Small and mildly enlarged nodes in the upper abdomen. Splenomegaly and hepatomegaly. Partially visualized. Recommend follow-up/further work-up. Old left rib fractures. Interval fusion hardware in the lower thoracic spine. Radiologist: Sid Acevedo MD ECG Data Attestation: I personally reviewed and interpreted this ECG as follows: Indication: + SOB/dyspnea Rate (beats per minute): 94 Rhythm: + normal sinus ECG Intervals/blocks: + Normal QRS and + Normal QT ECG [place]: + Normal ECG ST segments: + Normal ST segments MDM Narrative This is a 66-year-old male who presents due to concern for increased shortness of breath in the setting of known coronavirus. Patient found to be profoundly hypoxic on arrival at 70% on room air. With addition of nasal cannula patient improved, however ultimately required 6 to 7 L/min on oxygen mask to achieve oxygen saturations in the mid 90s. Patient otherwise hemodynamically stable. Labs drawn and sent, patient started on IV fluids. Patient with significant leukocytosis, however does have a history of CLL. No evidence of acute kidney injury. No prior cardiac history. Due to evolution of symptoms later on in his course of Covid, patient also sent for CT angiography of the chest which was negative for PE. No evidence of pericardial effusion. Case discussed with hospitalist for additional evaluation and management. An order was placed for continuous cardiac monitoring. The monitor shows a rate of _82_ with _normal sinus_ rhythm. Impression & Plan Dyspnea, Hypoxia, COVID-19 Discharge Plan Visit Data Chief Complaint: Shortness of Breath/Dyspnea Stated Complaint: SOB ED Provider: Melissa Iglesias Discharge Problem: Dyspnea, Hypoxia, COVID-19 Discharge Problem: Dyspnea Qualifiers: Dyspnea type: shortness of breath Qualified Code(s): R06.02 - Shortness of breath
[2021-06-27] MEDS ORDERED: LEVALBUTEROL TARTRATE 15 GM HFA.AER.AD INH STA (04:14)
[2021-06-27] MEDS ORDERED: MAGNESIUM SULFATE / D5W 1 GM/100 ML BAG IV STA (04:18)
[2021-06-27 05:14] LABS: Base Excess ABG 1.3 mEq/L (-9-1.8); HCO3 ABG 25 mmol/L (19-24); Oxygen Saturation ABG 94.5 % (90-95); PCO2 ABG 34 mmHg (35-46); PO2 ABG 68 mmHg (80-95); pH ABG 7.48 (7.35-7.45)
[2021-06-27 05:16] LABS: Allen Test Pos (Pos)
--- NOTE | 2021-06-27 05:38 | History & Physical Report ---
Date of Service June 27, 2021 Assessment & Plan (1) Acute hypoxemic respiratory failure: Plan: Secondary to severe COVID-19 pneumonia Possible sepsis from superimposed bacterial infection given elevated procalcitonin Diarrhea rule out C. difficile given recent outpatient antibiotic Rx hx CLL, low risk CLL as per outpatient [facility] H[facility]ology documentation DM2 on oral medications, suboptimal control as of recent outpatient hemoglobin A1c of 7.13 February 2021 Anemia, hemoglobin varying from 12-14 this year Transaminitis, possible NAFLD cirrhosis (cirrhosis noted on CT imaging December 2020) Medical telemetry Supplemental O2 Decadron for severe COVID-19 pneumonia. Doxycycline for superimposed bacterial infection given elevated procalcitonin, possible sepsis Pulmonary consult if without improvement Stool C. difficile Outpatient GI consult for cirrhosis work-up Basal insulin, ISS BG goal 1 10-1 40, carb count coverage DVT prophylaxis. Lovenox subcu Full code Patient's requesting updates from providers. Ms. Adrianne Castro, contact #[phone]. Total critical time was 45 minutes. Text document was generated using [employer] voice recognition software. It may contain grammatical or spelling errors. Kindly contact undersigned for clarification of any documentation item in question. History of Present Illness Chief Complaint: Covid 19, worsening shortness of breath Primary Care Provider: Winston Luna MD History obtained from patient, family, and records. Medical history significant for CLL, hyperlipidemia, ALIE (CPAP noncompliance), DM2 on oral medications. Patient admitted at [facility] last December 2020 for traumatic T-spine fractures, rib fractures, small left-sided pneumothorax, retroperitoneal hematoma secondary to fall from ladder. Patient underwent T10-L2 ORIF. 2 weeks ago, patient developed nasal and chest congestion reminiscent of prior sinusitis attacks. Patient PCP prescribed amoxicillin course without improvement of symptoms. Outpatient COVID-19 test noted to be positive. Patient noted worsening shortness of breath over the last 2 days along with chest pain with coughing. Dizziness/lightheadedness along with persistent dry cough symptoms. Diarrhea symptoms without abdominal pain. At the ER, O2 sats 70s on arrival. Patient given Decadron at the ER. Medical History as above Surgical History : Left knee surgery, lumbar spine fusion, neck spine fusion, shoulder surgeries, inguinal hernia repair Family History : Alcoholism, DM, bone cancer Personal/Social history : Non-smoker, occasional EtOH intake, prior [employer] employment Allergies Allergy/AdvReac Type Severity Reaction Status Date / Time No Known Allergies Allergy Unknown Verified 06/27/21 07:33 Home Medications Medication Instructions Recorded Confirmed Type empagliflozin 25 mg tablet 25 mg PO QAM 12/26/20 06/27/21 History (Jardiance) gabapentin 300 mg capsule 300 mg PO BID 12/26/20 06/27/21 History metformin 1,000 mg tablet 1,000 mg PO BID 12/26/20 06/27/21 History multivitamin 1 tab PO QAM 12/26/20 06/27/21 History repaglinide 2 mg tablet 1 - 4 mg PO DIRECTED 12/26/20 06/27/21 History Past Med/Surg History Medical History (Updated 06/27/21 @ 08:51 by Sb Morales MD) CLL (chronic lymphocytic leukemia) Social History Smoking Status: Never smoker Feels Safe at Home: Yes Review of Systems Review of Systems: As per HPI, all 10 systems reviewed, all other ROS negative Physical Exam Physical Exam: GENERAL: Slightly uncomfortable, obese, minimal respiratory distress SKIN: Pallor, warm HEENT: Pale palpebral conjunctivae, no ptosis, dry buccal mucosa, O2 mask in place NECK : Supple, short neck, no tenderness CHEST : Decreased breath sounds, uppercase expiratory wheezes, no tenderness HEART : RRR, no obvious murmurs ABDOMEN: Some distention, nontender EXTREMITIES : No LE swelling/tenderness, no other conspicuous deformities noted NEUROLOGIC : Coherent, no facial asymmetry, no other gross focality Results & Data Results & Data ([facility]) Vital Signs (Past 12 Hours) Vital Signs Temp Pulse Pulse Resp BP BP Pulse Ox 06/27/21 05:07 81 155/75 H 94 06/27/21 04:56 81 27 H 93 06/27/21 04:30 79 30 H 93 06/27/21 03:30 86 25 H 92 06/27/21 03:00 86 30 H 95 06/27/21 01:45 87 20 156/73 H 93 06/27/21 01:20 93 06/27/21 00:59 37.1 C 104 H 18 128/61 70 L Laboratory Results Laboratory Results WBC 64.47 K/uL (4.8-10.8) H* 06/27/21 01:15 RBC 4.09 M/uL (4.7-6.1) L 06/27/21 01:15 Hgb 12.3 g/dL (14.0-18.0) L 06/27/21 01:15 Hct 38.4 % (42-52) L 06/27/21 01:15 MCV 93.9 fL (80-100) 06/27/21 01:15 MCH 30.1 pg (25-34) 06/27/21 01:15 MCHC 32.0 g/dL (32-36) 06/27/21 01:15 RDW Std Deviation 49.9 fL (36.4-46.3) H 06/27/21 01:15 RDW Coeff of Lindsey 14.6 % (11.5-14.5) H 06/27/21 01:15 Plt Count 221 K/uL (130-400) 06/27/21 01:15 MPV 11.1 fL (7.4-10.4) H 06/27/21 01:15 Immature Gran % (Auto) 0.3 % 06/27/21 01:15 Neut % (Auto) 10.0 % 06/27/21 01:15 Lymph % (Auto) 88.7 % 06/27/21 01:15 Baxter % (Auto) 0.9 % 06/27/21 01:15 Eos % (Auto) 0.0 % 06/27/21 01:15 Baso % (Auto) 0.1 % 06/27/21 01:15 Neut # (Auto) 6.47 K/uL (1.4-6.5) 06/27/21 01:15 Lymph # (Auto) 57.17 K/uL (1.2-3.4) H 06/27/21 01:15 Baxter # (Auto) 0.55 K/uL (0.11-0.59) 06/27/21 01:15 Eos # (Auto) 0.00 K/uL (0-0.5) 06/27/21 01:15 Baso # (Auto) 0.07 K/uL (0-0.2) 06/27/21 01:15 Immature Gran # (Auto) 0.21 K/uL (0.00-0.02) H 06/27/21 01:15 Smudge Cells Present 06/27/21 01:15 ABG pH 7.48 (7.35-7.45) H 06/27/21 04:58 ABG pCO2 34 mmHg (35-46) L 06/27/21 04:58 ABG pO2 68 mmHg (80-95) L 06/27/21 04:58 ABG HCO3 25 mmol/L (19-24) H 06/27/21 04:58 ABG O2 Saturation 94.5 % (90-95) 06/27/21 04:58 ABG Base Excess 1.3 mEq/L (-9-1.8) 06/27/21 04:58 Clifton Test Pos (Pos) 06/27/21 04:58 Oxygen Given 8L 06/27/21 04:58 Sodium 132 mmol/L (136-145) L 06/27/21 01:15 Potassium 4.2 mmol/L (3.5-5.1) 06/27/21 01:15 Chloride 98 mmol/L (98-107) 06/27/21 01:15 Carbon Dioxide 22 mmol/L (21-32) 06/27/21 01:15 Anion Gap 12.0 (3-11) H 06/27/21 01:15 BUN 13 mg/dl (7-18) 06/27/21 01:15 Creatinine 0.79 mg/dl (0.6-1.4) 06/27/21 01:15 Est Cr Clr Drug Dosing Not Reportable 06/27/21 01:15 Est GFR ( Amer) 108.5 ml/min 06/27/21 01:15 Est GFR (Non-Af Amer) 93.6 ml/min 06/27/21 01:15 BUN/Creatinine Ratio 16.7 (10-20) 06/27/21 01:15 Glucose 167 mg/dl (70-99) H 06/27/21 01:15 Lactate 1.5 mmol/L (0.4-2.0) 06/27/21 04:15 Calcium 6.9 mg/dl (8.5-10.1) L 06/27/21 01:15 Magnesium 1.9 mg/dl (1.8-2.4) 06/27/21 01:15 Total Bilirubin 1.4 mg/dl (0.2-1) H 06/27/21 01:15 AST 100 U/L (15-37) H 06/27/21 01:15 ALT 153 U/L (12-78) H 06/27/21 01:15 Alkaline Phosphatase 139 U/L (45-117) H 06/27/21 01:15 Troponin I < 0.015 ng/ml (0-0.045) 06/27/21 01:15 NT-Pro-B Natriuret Pep 243 pg/ml (0-900) 06/27/21 01:15 Total Protein 6.8 gm/dl (6.4-8.2) 06/27/21 01:15 Albumin 1.9 gm/dl (3.4-5.0) L 06/27/21 01:15 Globulin 4.9 gm/dl (2.5-4.0) H 06/27/21 01:15 Albumin/Globulin Ratio 0.4 (0.9-2) L 06/27/21 01:15 Procalcitonin 1.30 ng/ml (0-0.5) H 06/27/21 01:15 COVID-19 Eval Order Covid19 at [facility] 06/27/21 01:47 SARS-CoV-2 (PCR) POSITIVE (Negative) A* 06/27/21 01:[address] chest initial read: Breathing motion artifact somewhat limits evaluation of the smaller peripheral arteries. No PE visualized. Bilateral consolidations and groundglass opacities. Involves most of the lower lobes bilaterally. Correlate for infectious/inflammatoryprocess, including Covid 19 Mediastinal and hilar adenopathy, increased since the prior study. DDX, infectious, inflammatoryor neoplastic process Small and mildlyenlarged nodes in the upper abdomen. Splenomegalyand hepatomegaly, partiallyvisualized. Recommend follow-up/further workup. Old left rib fractures. Interval fusion hardware in the lower thoracic spine EKG as per my interpretation rate 95, NSR, LAD, LAFB, T wave abnormalities lateral leads
[2021-06-27] MEDS ORDERED: DOXYCYCLINE HYCLATE 100 MG in DEXTROSE 5% 100 ML IV STA (05:39)
[2021-06-27] MEDS ORDERED: CALCIUM GLUCONATE 10% 2,000 MG in SODIUM CHLORIDE 0.9% 50 ML IV STA (05:53)
--- NOTE | 2021-06-27 08:04 | CT Scan Report ---
CT angio chest PE protocol CLINICAL HISTORY: PE TECHNIQUE: Multidetector row helical CT of the chest was performed. Coronal and sagittal reformations were obtained. Automated dose lowering techniques and/or adjustment according to patient size were u tilized for this exam. Comparison: None available at the time of this dictation. FINDINGS: Lungs and pleura: Diffuse consolidative opacities are seen bilaterally. Heart and pericardium: Heart size is normal. No pericardial effusion. Vessels: Limited evaluation due to patient motion, however no central, lobar, segmental pulmonary emb olus is identified. Mediastinum and any: Multiple enlarged mediastinal and hilar nodes are seen bilaterally. Chest wall and lower neck: Unremarkable. Abdomen: A hiatal hernia is seen. Subcentimeter retroperitoneal lymph nodes are partially visualized. There is suggestion of splenomegaly and hepatomegaly. Bones: Degenerative changes in the thoracic spine. Posterior stabilization hardware is partially visu alized. IMPRESSION: 1. Multifocal consolidations compatible with Covid pneumonia with reactive lymphadenopathy. 2. No evidence of central, lobar, or segmental pulmonary embolus. Limited evaluation for subsegmenta l embolus due to patient motion. ACT 112: Negative or not required by law. Electronically signed by: Elmer Jo M.D. 06/27/2021 8:03 AM
[2021-06-27] MEDS ORDERED: GLUCAGON FOR INJ 1 MG VIAL SQ PRN (09:13)
[2021-06-27] MEDS ORDERED: GLUCOSE 10 TABS/TUBE PO PRN (09:13)
[2021-06-27] MEDS ORDERED: CARBOHYDRATES FOR HYPOGLYCEMIA PO PRN (09:13)
[2021-06-27] MEDS ORDERED: ACETAMINOPHEN 325 MG TAB PO PRN (09:13)
[2021-06-27] MEDS ORDERED: GLUCOSE 40% GEL 15 GM TUBE PO PRN (09:13)
[2021-06-27] MEDS ORDERED: oxyCODONE HCL IR 5 MG TAB (IMMEDIATE RELEASE) PO PRN (09:13)
[2021-06-27] MEDS ORDERED: DEXTROSE 50% 50 ML SYRINGE IV PRN (09:13)
[2021-06-27] MEDS ORDERED: PROMETHAZINE HCL 12.5 MG in SODIUM CHLORIDE 0.9% 50 ML IV PRN (09:30)
[2021-06-27] MEDS ORDERED: SODIUM CHLORIDE 0.9% 1000ML 1,000 ML IV ONE (09:30)
[2021-06-27] MEDS: INSULIN ASPART 100 UNITS/ML 3 ML PEN SC SCH ×4 (09:45→20:34)
[2021-06-27] MEDS ORDERED: LEVALBUTEROL TARTRATE 15 GM HFA.AER.AD INH PRN (09:59)
[2021-06-27] MEDS: GABAPENTIN 300 MG CAP PO SCH ×2 (10:59→20:38)
[2021-06-27] MEDS: guaiFENesin 600 MG TABCR PO SCH ×2 (10:59→20:39)
[2021-06-27] MEDS: ENOXAPARIN INJ 40 MG/0.4 ML SYR SQ SCH (10:59)
[2021-06-27] MEDS: PANTOprazole 40 MG TAB PO SCH (11:00)
[2021-06-27] MEDS ORDERED: LEVALBUTEROL TARTRATE 15 GM HFA.AER.AD INH SCH (11:00)
[2021-06-27] MEDS: MULTIVITAMIN TAB PO SCH (11:00)
[2021-06-27] MEDS: INSULIN GLARGINE SOLOSTAR 100 UNITS/ML 3 ML PEN SC SCH (11:00)
[2021-06-27] MEDS: DOXYCYCLINE HYCLATE 100 MG CAP PO SCH (20:38)
[2021-06-28] MEDS ORDERED: LEVALBUTEROL TARTRATE 15 GM HFA.AER.AD INH STA (04:23)
[2021-06-28] MEDS: dexAMETHasone 6 MG in SYRINGE 0 ML IV SCH (05:25)
[2021-06-28 05:26] LABS: Base Excess ABG 2.4 mEq/L (-9-1.8); HCO3 ABG 26 mmol/L (19-24); Oxygen Saturation ABG 92.8 % (90-95); PCO2 ABG 35 mmHg (35-46); PO2 ABG 63 mmHg (80-95); pH ABG 7.49 (7.35-7.45)
[2021-06-28 05:28] LABS: Allen Test Pos (Pos)
[2021-06-28 05:46] LABS: Hematocrit (blood only) 37.2 % (42-52); Mean Corpuscular Hemoglobin 30.3 pg (25-34); Mean Corpuscular Hgb Conc 32.3 g/dL (32-36); Mean Corpuscular Volume 93.9 fL (80-100); Mean Platelet Volume 10.5 fL (7.4-10.4); Platelet Count 218 K/uL (130-400); RDW Coefficient of Variation 14.9 % (11.5-14.5); RDW Standard Deviation 50.3 fL (36.4-46.3); Red Blood Count 3.96 M/uL (4.7-6.1); White Blood Count 65.65 K/uL (4.8-10.8)
[2021-06-28 05:50] LABS: Albumin Level 1.7 gm/dl (3.4-5.0); BUN Creatinine Ratio 28.7 (10-20); C Reactive Protein 14.3 mg/dl (0-0.29); Calcium 7.8 mg/dl (8.5-10.1); Creatinine Clr Calc Pharmacy 161.9 ml/min; Est GFR (African American) 125.9 ml/min; Est GFR (Non-African American) 108.6 ml/min; Magnesium 2.1 mg/dl (1.8-2.4); Potassium 4.8 mmol/L (3.5-5.1)
[2021-06-28 05:55] LABS: Albumin Globulin Ratio 0.4 (0.9-2); Globulin 4.2 gm/dl (2.5-4.0); Total Protein 5.9 gm/dl (6.4-8.2)
[2021-06-28 06:09] LABS: Basophils # (auto) 0.06 K/uL (0-0.2); Basophils % (auto) 0.1 %; Eosinophils # (auto) 0.05 K/uL (0-0.5); Eosinophils % (auto) 0.1 %; Immature Granulocytes # (auto) 0.15 K/uL (0.00-0.02); Immature Granulocytes % (auto) 0.2 %; Lymphocytes # (auto) 59.24 K/uL (1.2-3.4); Lymphocytes % (auto) 90.2 %; Monocytes # (auto) 0.13 K/uL (0.11-0.59); Monocytes % (auto) 0.2 %; Neutrophils # (auto) 6.02 K/uL (1.4-6.5); Neutrophils % (auto) 9.2 %; Smudge Cells Present
[2021-06-28] MEDS ORDERED: FUROSEMIDE 20 MG in SYRINGE 0 ML IV ONE (06:19)
[2021-06-28] MEDS ORDERED: FUROSEMIDE 40 MG/4 ML VIAL IV STA (06:28)
--- NOTE | 2021-06-28 07:25 | XRay Report ---
SINGLE VIEW CHEST CLINICAL HISTORY: Hypoxia. FINDINGS: An AP, portable, upright chest radiograph is compared to study dated 12/26/2020 and correlat ed with chest CT performed the same day 06/27/2021. The cardiomediastinal silhouette is unremarkable. Focal airspace consolidation is seen throughout both lungs, most confluent in the right lower lobe. Suspect a small right pleural effusion. No pneumothorax is seen. The bony thorax is grossly intact. A dvanced arthritic change is seen in the shoulders. Surgical anchors are noted in the left humeral hea d. IMPRESSION: 1. Multifocal airspace consolidation is typical for pneumonia. Clinical correlation will be required. 2. Suspect a small right pleural effusion. ACT 112: Negative or not required by law. Electronically signed by: Reddy Hua M.D. 06/28/2021 7:24 AM
[2021-06-28] MEDS: GABAPENTIN 300 MG CAP PO SCH ×2 (08:52→19:52)
[2021-06-28] MEDS: ENOXAPARIN INJ 40 MG/0.4 ML SYR SQ SCH (08:52)
[2021-06-28] MEDS: MULTIVITAMIN TAB PO SCH (08:52)
[2021-06-28] MEDS: DOXYCYCLINE HYCLATE 100 MG CAP PO SCH ×2 (08:52→19:52)
[2021-06-28] MEDS: guaiFENesin 600 MG TABCR PO SCH ×2 (08:52→19:52)
[2021-06-28] MEDS: PANTOprazole 40 MG TAB PO SCH (08:52)
[2021-06-28] MEDS: INSULIN ASPART 100 UNITS/ML 3 ML PEN SC SCH ×4 (08:53→20:27)
[2021-06-28] MEDS: INSULIN GLARGINE SOLOSTAR 100 UNITS/ML 3 ML PEN SC SCH (08:53)
[2021-06-28] MEDS ORDERED: dexAMETHasone 6 MG in SYRINGE 0 ML IV SCH (09:00)
--- NOTE | 2021-06-28 12:05 | Electrocardiogram Report ---
Test Reason : Blood Pressure : / mmHG Vent. Rate : 094 BPM Atrial Rate : 094 BPM P-R Int : 152 ms QRS Dur : 110 ms QT Int : 382 ms P-R-T Axes : 042 -28 069 degrees QTc Int : 477 ms Poor data quality, interpretation may be adversely affected Normal sinus rhythm Normal ECG When compared with ECG of 26-DEC-2020 16:28, QRS axis Shifted left Confirmed by Pepito Gambino ([id number]) on 06/28/2021 12:04:37 PM Referred By: REFERRED SELF Confirmed By:Pepito Gambino
--- NOTE | 2021-06-28 13:55 | Pulmonary Consultation ---
Date of Consultation June 28, 2021 Assessment & Plan (1) COVID-19: (2) Acute hypoxemic respiratory failure: (3) Obstructive sleep apnea: Attending: Dr. Cha Impression: This is a 66-year-old male who began having Covid symptoms in late May early June. He had self quarantined at home with his because anticipated they would become positive. He presented to the emergency department with increased shortness of breath and was found to be Covid positive. He is currently on the Covid unit and requiring supplemental oxygen via high flow for acute hypoxia. Recommendations: 1. COVID-19 pneumonia: Patient is experienced hypoxia and requiring high flow supplemental oxygen. We will continue with dexamethasone 6 mg IV daily. At this point there is no benefit to remdesivir or other treatment modalities as patient is 20 days out from initial contact and symptoms. We will continue supportive care. I did discuss with the patient that he may require suppleme ntal oxygen on discharge and will need to be followed in the pulmonary/sleep clinic. Would focus on diuresis to maintain a negative fluid balance. Continue to monitor on telemetry. Would also recommend enoxaparin twice daily prophylactically. 2. Acute hypoxia: Secondary to COVID-19 pneumonia. Continue titrate supplemental oxygen above 90%. Patient with no history of tobacco abuse. Patient with history of obstructive sleep apnea but no pulmonary disorder. I did discuss with the patient that he may need to be discharged on oxygen and that would be monitored as an outpatient 3. Obstructive sleep apnea: Patient with diagnosis for many years. He was compliant with CPAP until fpc 2 years ago. 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 I explained the importance of treating sleep apnea and suggested that he be retested with titration and that he continue using his CPAP with hours of sleep. Thank you for including us in the care of this patient. The pulmonary service will sign off at this time. Please refer to Dr. Cha's addendum for further recommendations and corrections. Supervising Physician Co-Signing Physician Notes Seen and examined. Discussed with SHARIF and agree with AP as noted. COVID + with CT angiogram showing multifocal airspace opacities. Patient does have an elevated CRP. He is at risk for clinical deterioration and meets criteria for baricitinib. Discussed with pharmacy and they will institute the medication. Continue dexamethasone 6 mg daily. Wean oxygen as tolerated. Given his immunosuppression associated with his CLL, he is at risk for poor outcome. Palliative care consultation may be appropriate. History of Present Illness Reason for Consultation: Evaluate for Covid pneumonia Requesting Physician: Dr. Nguyen Attending Physician: Estrella Martin MD History of Present Illness Attending: Dr. Cha This is a 66-year-old male with a past medical history including chronic lymphocytic leukemia, left knee DJD, diabetes mellitus type 2, diabetic neuropathy, obesity with a BMI of 31.9 kg/m, obstructive sleep apnea (noncompliance with CPAP). Patient reports that he began having symptoms in late May early June. He and his both thought that they would be positive so they self quarantined. Patient was doing well but then developed nasal and chest congestion which seem to worsen. Patient was seen by his primary care physician who prescribed amoxicillin with no improvement to symptoms. Outpatient testing was then completed which revealed positivity for COVID-19. Patient was treating at home but then had worsening shortness of breath as well as chest discomfort with worsening cough. He reports that the cough has been nonproductive. He has no reports of hemoptysis. He also had some diarrhea with no abdominal pain or cramping. There is no notice of melena or hematochezia or BRBRP. 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 Patient retired 2 years ago and did not feel that he needed the CPAP any longer so he quit using it. Patient states that his snoring is better and he denies any apneic periods at home. Patient denies any history of tobacco abuse. He was never smoker. He did use smokeless snuff for period of time but that was years ago. Patient is fully vaccinated with Curiosidy vaccine receiving his initial dose to 921, his second dose 11/14/2020, and a booster 06/28/2021. Booster shot was recommended as the patient has CLL. Allergies Allergy/AdvReac Type Severity Reaction Status Date / Time No Known Allergies Allergy Unknown Verified 06/27/21 07:33 Home Medications Medication Instructions Recorded Confirmed Type empagliflozin 25 mg tablet 25 mg PO QAM 12/26/20 06/27/21 History (Jardiance) gabapentin 300 mg capsule 300 mg PO BID 12/26/20 06/27/21 History metformin 1,000 mg tablet 1,000 mg PO BID 12/26/20 06/27/21 History multivitamin 1 tab PO QAM 12/26/20 06/27/21 History repaglinide 2 mg tablet 1 - 4 mg PO DIRECTED 12/26/20 06/27/21 History Patient History Medical History (Updated 06/28/21 @ 14:18 by Reddy Heart PA-C) CLL (chronic lymphocytic leukemia) Diabetes mellitus type 2 in obese (08/01/12) Hyperlipidemia Obstructive sleep apnea Postlaminectomy syndrome, cervical (08/01/12) Surgical History (Updated 06/28/21 @ 14:10 by Reddy Heart PA-C) S/P cervical spinal fusion (08/01/12) Family History (Updated 06/28/21 @ 14:10 by Reddy Heart PA-C) Other Family history non-contributory Social History Smoking Status: Never smoker Hx Alcohol Use: No Hx Substance Use: No Preferred Language: Afghan Communication Ability: Effective Geochemical Laboratory Technician Required: No Beliefs That Will Affect Care: None Current Living Situation: Spouse Feels Safe at Home: Yes Safety Concerns: Feels Safe At This Time Assistive Devices: Oxygen - Continuous Review of Systems Review of Systems: All systems reviewed & are unremarkable except as noted in Subjective Physical Exam Physical Exam: GENERAL : No acute distress EYES: No icterus, gaze conjugate NOSE: No evidence of epistaxis MOUTH: No lesions or candidiasis NECK: Supple LUNGS: Bibasilar crackles. No appreciation of bronchospasm. Deep inspiration induces cough. HEART: Regular, rate controlled ABDOMEN: Soft, NT, ND, BS Present EXTREMITIES: No LE edema, pedal pulses intact NEURO: A&OX3 Results & Data Results & Data ([facility]) Vital Signs (Past 12 Hours) Vital Signs Temp Pulse Resp BP Pulse Ox 06/28/21 11:11 36.9 C 74 18 139/68 94 06/28/21 08:05 37.9 C H 82 18 146/75 H 89 L 06/28/21 05:09 37.5 C 77 20 118/63 93 06/28/21 04:55 77 12 94 Laboratory Results 06/28/21 04:59 06/28/21 04:59 Diagnostic Findings Chest CTA 06/27/21 01:31 CT angio chest PE protocol CLINICAL HISTORY: PE TECHNIQUE: Multidetector row helical CT of the chest was performed. Coronal and sagittal reformations were obtained. Automated dose lowering techniques and/or adjustment according to patient size were utilized for this exam. Comparison: None available at the time of this dictation. FINDINGS: Lungs and pleura: Diffuse consolidative opacities are seen bilaterally. Heart and pericardium: Heart size is normal. No pericardial effusion. Vessels: Limited evaluation due to patient motion, however no central, lobar, segmental pulmonary embolus is identified. Mediastinum and any: Multiple enlarged mediastinal and hilar nodes are seen bilaterally. Chest wall and lower neck: Unremarkable. Abdomen: A hiatal hernia is seen. Subcentimeter retroperitoneal lymph nodes are partially visualized. There is suggestion of splenomegaly and hepatomegaly. Bones: Degenerative changes in the thoracic spine. Posterior stabilization hardware is partially visualized. IMPRESSION: 1. Multifocal consolidations compatible with Covid pneumonia with reactive lymphadenopathy. 2. No evidence of central, lobar, or segmental pulmonary embolus. Limited evaluation for subsegmental embolus due to patient motion. ACT 112: Negative or not required by law. Electronically signed by: Elmer Jo M.D. 06/27/2021 8:03 AM Chest X-Ray 06/28/21 04:23 SINGLE VIEW CHEST CLINICAL HISTORY: Hypoxia. FINDINGS: An AP, portable, upright chest radiograph is compared to study dated 12/26/2020 and correlated with chest CT performed the same day 06/27/2021. The cardiomediastinal silhouette is unremarkable. Focal airspace consolidation is seen throughout both lungs, most confluent in the right lower lobe. Suspect a small right pleural effusion. No pneumothorax is seen. The bony thorax is grossly intact. Advanced arthritic change is seen in the shoulders. Surgical anchors are noted in the left humeral head. IMPRESSION: 1. Multifocal airspace consolidation is typical for pneumonia. Clinical correlation will be required. 2. Suspect a small right pleural effusion. ACT 112: Negative or not required by law. Electronically signed by: Reddy Hua M.D. 06/28/2021 7:24 AM Medications Administered Current Inpatient Medications Acetaminophen (Acetaminophen 325 Mg Tab) 325 mg PO Q6H PRN PRN Reason: Mild Pain Stop: 07/27/21 09:12 Dextrose (Dextrose 50% 50 Ml Syringe) 25 - 50 ml IV UD PRN; Protocol PRN Reason: Hypoglycemia Protocol Stop: 07/27/21 09:12 Doxycycline Hyclate (Doxycycline Hyclate 100 Mg Cap) 100 mg PO BID BREANNA Stop: 07/04/21 20:59 Last Admin: 06/28/21 08:52 Dose: 100 mg Documented by: Enoxaparin Sodium (Enoxaparin Inj 40 Mg/0.4 Ml Syr) 40 mg SQ QAM BREANNA Stop: 07/27/21 09:59 Last Admin: 06/28/21 08:52 Dose: 40 mg Documented by: Gabapentin (Gabapentin 300 Mg Cap) 300 mg PO BID BREANNA Stop: 07/27/21 09:59 Last Admin: 06/28/21 08:52 Dose: 300 mg Documented by: Glucagon (Glucagon For Inj 1 Mg Vial) 1 mg SQ UD PRN; Protocol PRN Reason: Hypoglycemia Protocol Stop: 07/27/21 09:12 Glucose (Glucose 10 Tabs/Tube) 4 - 8 tabs PO UD PRN; Protocol PRN Reason: Hypoglycemia Protocol Stop: 07/27/21 09:12 Glucose (Glucose 40% Gel 15 Gm Tube) 15 - 30 gm PO UD PRN; Protocol PRN Reason: Hypoglycemia Protocol Stop: 07/27/21 09:12 Guaifenesin (Guaifenesin 600 Mg Tabcr) 600 mg PO Q12 BREANNA Stop: 07/27/21 09:59 Last Admin: 06/28/21 08:52 Dose: 600 mg Documented by: Promethazine HCl 12.5 mg/ (Sodium Chloride) 50.5 mls @ 202 mls/hr IV Q6H PRN PRN Reason: Nausea And Vomiting Stop: 07/27/21 09:29 Dexamethasone 6 mg/ Syringe 1.5 mls @ 1 mls/min IV DAILY BREANNA Stop: 07/28/21 04:24 Last Admin: 06/28/21 05:25 Dose: 1 mls/min Documented by: Insulin Aspart (Insulin Aspart 100 Units/Ml 3 Ml Pen) 0 units SC ACHS [facility] Stop: 07/27/21 09:29 Last Admin: 06/28/21 12:29 Dose: 5 units Documented by: Insulin Glargine (Insulin Glargine Solostar 100 Units/Ml 3 Ml Pen) 10 units SC DAILY [facility] Stop: 07/27/21 09:59 Last Admin: 06/28/21 08:53 Dose: 10 units Documented by: Levalbuterol HCl (Levalbuterol Tartrate 15 Gm Hfa.Aer.Ad) 2 puffs INH Q4R PRN PRN Reason: Shortness Of Breath Or Wheezing Stop: 07/27/21 09:58 Miscellaneous (Carbohydrates For Hypoglycemia ) 15 - 30 gm PO UD PRN PRN Reason: Hypoglycemia Protocol Stop: 07/27/21 09:12 Multivitamins (Multivitamin Tab) 1 tab PO [facility] Stop: 07/27/21 09:59 Last Admin: 06/28/21 08:52 Dose: 1 tab Documented by: Oxycodone HCl (Oxycodone Hcl Ir 5 Mg Tab (Immediate Release)) 5 mg PO Q4H PRN PRN Reason: Pain Stop: 07/11/21 09:12 Pantoprazole Sodium (Pantoprazole 40 Mg Tab) [facility] [place] Protocol Stop: 07/27/21 09:59 Last Admin: 06/28/21 08:52 Dose: 40 mg Documented by: PG Care Time/CCT Total # of Minutes Spent Total Time Spent with Patient: Total time spent is greater than 50% in coordination of care (as documented) at patient's floor/unit and/or counseling patient: 45 minutes Coding Level of Care Code 10780 Inpt Consult Level 3 Diagnoses COVID-19 U07.1 Acute hypoxemic respiratory failure J96.01 Obstructive sleep apnea G47.33 Time Spent (min) 45
--- NOTE | 2021-06-28 15:52 | Hospitalist Progress Note ---
Date of Service June 28, 2021 Assessment & Plan (1) Acute hypoxemic respiratory failure: Plan: Secondary to severe COVID-19 pneumonia Possible sepsis from superimposed bacterial infection given elevated procalcitonin Diarrhea rule out C. difficile given recent outpatient antibiotic Rx hx CLL, low risk CLL as per outpatient [facility] Hematology documentation DM2 on oral medications, suboptimal control as of recent outpatient hemoglobin A1c of 7.13 February 2021 Anemia, hemoglobin varying from 12-14 this year Transaminitis, possible NAFLD cirrhosis (cirrhosis noted on CT imaging December 2020) Overall doing OK today. Currently on 6 L NC. Decadron for severe COVID-19 pneumonia. Doxycycline for superimposed bacterial infection given elevated procalcitonin, possible sepsis Appreciate pulmoanry input. C. difficile is negative. Outpatient GI consult for cirrhosis work-up Basal insulin, ISS BG goal 1 10-1 40, carb count coverage DVT prophylaxis. Lovenox subcu Full code Patient's requesting updates from providers. Ms. Adrianne Castro, contact #[phone]. Total critical time was 45 minutes. Text document was generated using [employer] voice recognition software. It may contain grammatical or spelling errors. Kindly contact undersigned for clarification of any documentation item in question. Admission and Anticipated Discharge Date Admission Date: June 27, 2021 Subjective Patient reports he feels better. Currently on 7 L of nasal cannula. Does have minimal nonproductive cough. Denies any chest pain, abdominal pain, diarrhea or dysuria. Appetite has been okay. Review of Systems Review of Systems: All systems reviewed & are unremarkable except as noted in HPI & below Physical Exam Physical Exam: General: A&Ox3 HENT: NCAT, MMM, EOMI Eyes: PERRLA Neck: Supple, normal range of motion CVS: normal rate and rhythm Resp: b/l decrease breath sounds Abdomen: Soft, ND/NT, +BS Extremities: No c/c/e Neuro: face symmetric, strength grossly equal, no focal deficit Skin: warm and dry, no rashes/lesions/errythema MSK: normal ROM, no joint swelling/erythema Results & Data Results & Data ([facility]) Vital Signs (Past 12 Hours) Vital Signs Temp Pulse Resp BP Pulse Ox 06/28/21 15:10 36.9 C 66 20 129/67 95 06/28/21 11:11 36.9 C 74 18 139/68 94 06/28/21 08:05 37.9 C H 82 18 146/75 H 89 L 06/28/21 05:09 37.5 C 77 20 118/63 93 06/28/21 04:55 77 12 94
[2021-06-28] MEDS: BARICITINIB 2 MG TAB PO SCH (17:42)
[2021-06-29] MEDS: INSULIN ASPART 100 UNITS/ML 3 ML PEN SC SCH ×4 (09:00→21:31)
[2021-06-29] MEDS: dexAMETHasone 6 MG in SYRINGE 0 ML IV SCH (09:03)
[2021-06-29] MEDS: GABAPENTIN 300 MG CAP PO SCH ×2 (09:04→21:06)
[2021-06-29] MEDS: guaiFENesin 600 MG TABCR PO SCH ×2 (09:04→21:06)
[2021-06-29] MEDS: MULTIVITAMIN TAB PO SCH (09:04)
[2021-06-29] MEDS: DOXYCYCLINE HYCLATE 100 MG CAP PO SCH (09:04)
[2021-06-29] MEDS: ENOXAPARIN INJ 40 MG/0.4 ML SYR SQ SCH (09:05)
[2021-06-29] MEDS: PANTOprazole 40 MG TAB PO SCH (09:05)
[2021-06-29] MEDS: BARICITINIB 2 MG TAB PO SCH (09:18)
[2021-06-29] MEDS: INSULIN GLARGINE SOLOSTAR 100 UNITS/ML 3 ML PEN SC SCH (09:36)
--- NOTE | 2021-06-29 09:52 | Pulmonology Progress Note ---
Date of Service June 29, 2021 Assessment & Plan (1) COVID-19: (2) Acute hypoxemic respiratory failure: (3) Obstructive sleep apnea: Plan: Impression: This is a 66-year-old fully vaccinated male who began having Covid symptoms in late May early June. He is admitted with Covid pneumonitis and acute hypoxemic respiratory failure. He is relatively immunosuppressed due to his CLL Recommendations: 1. COVID-19 pneumonia: Continue dexamethasone 6 mg daily and baricitinib per protocol. PCT elevated on presentation. Difficult to determine if underlying infection. Seems prudent to complete 5 days of abx for CAP - doxy monotherapy not recommended to adjust to ceftin/azithro. Check PCT in AM. DVT prophylaxis per ACCP guidelines 2. Acute hypoxia: Secondary to COVID-19 pneumonia. Continue titrate supplemental oxygen above 90%. Wean oxygen as tolerated. Its likely the patient may require supplemental oxygen at discharge 3. Obstructive sleep apnea: Patient with diagnosis for many years. He was compliant with CPAP until care home 2 years ago. 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 I explained the importance of treating sleep apnea and suggested that he be retested with titration and that he continue using his CPAP with hours of sleep. 4. CLL: Management per primary service Patient appears to be improving. Feel free to contact us if he should clinically worsen. He is at risk for more severe disease given his relative immunosuppression. Will sign off for now. Admission and Anticipated Discharge Date Admission Date: June 27, 2021 Subjective Patient seen and examined. EMR reviewed. He feels better today. He is coughing less. No chest pain palpitations or lower extremity edema. No fevers chills or night sweats overnight. Review of Systems Review of Systems: 12 point review of systems completed with the patient and negative except as noted in subjective Physical Exam Constitutional: WD/WN, vitals as above Neck: trachea midline, no thyromegaly Respiratory: normal respiratory effort, lungs clear to auscultation Cardiovascular: RRR, no murmur, no edema Gastrointestinal (Abdomen): normal bowel sounds, soft, nontender, no hepatosplenomegaly Musculoskeletal: Extremities: extremities normal to inspection Skin: no rashes, warm and dry Neurologic: Nonfocal exam Lymphatic: no cervical lymphadenopathy Results & Data Results & Data ([facility]) Vital Signs (Past 12 Hours) Vital Signs Temp Pulse Pulse Resp BP Pulse Ox 06/29/21 08:00 64 06/29/21 07:53 36.6 C 70 18 137/65 90 06/29/21 03:48 64 06/28/21 23:42 37.0 C 16 147/74 H 93 Laboratory Results 06/28/21 04:59 06/28/21 04:59 Diagnostic Findings No new imaging PG Care Time/CCT Total # of Minutes Spent Total Time Spent with Patient: Total time spent is greater than 50% in coordination of care (as documented) at patient's floor/unit and/or counseling patient: Coding Level of Care Code 19943 Subseq Hosp Care Lvl 3 Diagnoses COVID-19 U07.1 Acute hypoxemic respiratory failure J96.01 Obstructive sleep apnea G47.33
[2021-06-29] MEDS: AZITHROMYCIN 250 MG TAB PO SCH (10:30)
[2021-06-29] MEDS: cefUROXime axetil 500 MG TAB PO SCH ×2 (13:36→21:05)
--- NOTE | 2021-06-29 20:25 | Hospitalist Progress Note ---
Date of Service June 29, 2021 Assessment & Plan (1) Acute hypoxemic respiratory failure: Plan: Secondary to severe COVID-19 pneumonia, cont decadron, barcitinib. Elevated procalcitonin on admission, short course antibiotics per pulmonology. Repeat procalcitonin in am. Doing well clinically. (2) Pneumonia due to COVID-19 virus: Plan: cont plan as above, notably treating for possible superimposed bacterial pneumonia, also. Follow-up chest xray in 4 weeks to ensure complete resolution of pneumonia. (3) CLL (chronic lymphocytic leukemia): Plan: follows with [facility] Hematology (4) Diabetes mellitus type 2 in obese: Plan: cont basal bolus insulin while admitted and on steroid therapy. Currently at goal. A1C uncontrolled. Close outpatient follow-up recommended. (5) Transaminitis: Plan: Likely multifactorial in setting of fatty liver and covid-19 viral infection. Currently without abdominal pain or fever and tolerating food. Cont to monitor as he improves. (6) DVT prophylaxis: Plan: Lovenox Full Code Dispo-cont PCU monitoring Esha Membreno DO [facility] Hospitalist Admission and Anticipated Discharge Date Admission Date: June 27, 2021 Subjective 66 yo M presented with covid pneumonia. feeling well today denies symptoms breathing has improved on current therapy cough improved Review of Systems Review of Systems: At least ten systems were reviewed and negative except as indicated in HPI above. Physical Exam Physical Exam: CONSTITUTIONAL: WNWD, vitals as above, generally well- appearing, NAD EYES: normal conjunctivae, no scleral icterus ENT: external ear and nose normal NECK: trachea midline RESPIRATORY: clear to auscultation bilaterally, no crackles, rales or wheezes, normal respiratory effort CARDIOVASCULAR: regular rate and rhythm, S1 and 2 heard without murmurs, gallops or rubs, no JVD, no peripheral edema GASTROINTESTINAL: soft, nontender, ND, no guarding MUSCULOSKELETAL: strength 5/5 throughout, head is normocephalic and atraumatic, ambulating independently SKIN: warm and dry NEUROLOGIC: No facial palsy, no dysarthria. CN 2-12 grossly intact, no sensory deficit, normal cognition, normal speech, no tremor, no gross focal deficits. PSYCHIATRIC: alert cooperative and oriented to person, place and time. Results & Data Results & Data ([facility]) Vital Signs (Past 12 Hours) Vital Signs Temp Pulse Pulse Resp BP Pulse Ox 06/29/21 19:19 36.5 C 63 20 121/66 94 06/29/21 17:03 68 06/29/21 15:18 36.6 C 70 22 142/68 H 92 06/29/21 10:30 36.7 C 74 18 142/68 H 91 Medications Administered Current Inpatient Medications Acetaminophen (Acetaminophen 325 Mg Tab) 325 mg PO Q6H PRN PRN Reason: Mild Pain Stop: 07/27/21 09:12 Azithromycin (Azithromycin 250 Mg Tab) 250 mg PO QAM [facility] Stop: 07/06/21 09:59 Last Admin: 06/29/21 10:30 Dose: 250 mg Documented by: Baricitinib (Baricitinib 2 Mg Tab) 4 mg PO DAILY [facility] Stop: 07/12/21 15:59 Last Admin: 06/29/21 09:18 Dose: 4 mg Documented by: Cefuroxime Axetil (Cefuroxime Axetil 500 Mg Tab) 500 mg PO BID@1100,2100 [facility] Stop: 07/06/21 10:59 Last Admin: 06/29/21 13:36 Dose: 500 mg Documented by: Dextrose (Dextrose 50% 50 Ml Syringe) 25 - 50 ml IV UD PRN; Protocol PRN Reason: Hypoglycemia Protocol Stop: 07/27/21 09:12 Enoxaparin Sodium (Enoxaparin Inj 40 Mg/0.4 Ml Syr) 40 mg SQ QAM [facility] Stop: 07/27/21 09:59 Last Admin: 06/29/21 09:05 Dose: 40 mg Documented by: Gabapentin (Gabapentin 300 Mg Cap) 300 mg PO BID [facility] Stop: 07/27/21 09:59 Last Admin: 06/29/21 09:04 Dose: 300 mg Documented by: Glucagon (Glucagon For Inj 1 Mg Vial) 1 mg SQ UD PRN; Protocol PRN Reason: Hypoglycemia Protocol Stop: 07/27/21 09:12 Glucose (Glucose 10 Tabs/Tube) 4 - 8 tabs PO UD PRN; Protocol PRN Reason: Hypoglycemia Protocol Stop: 07/27/21 09:12 Glucose (Glucose 40% Gel 15 Gm Tube) 15 - 30 gm PO UD PRN; Protocol PRN Reason: Hypoglycemia Protocol Stop: 07/27/21 09:12 Guaifenesin (Guaifenesin 600 Mg Tabcr) 600 mg PO Q12 [facility] Stop: 07/27/21 09:59 Last Admin: 06/29/21 09:04 Dose: 600 mg Documented by: Promethazine HCl 12.5 mg/ (Sodium Chloride) 50.5 mls @ 202 mls/hr IV Q6H PRN PRN Reason: Nausea And Vomiting Stop: 07/27/21 09:29 Dexamethasone 6 mg/ Syringe 1.5 mls @ 1 mls/min IV DAILY [facility] Stop: 07/28/21 04:24 Last Admin: 06/29/21 09:03 Dose: 1 mls/min Documented by: Insulin Aspart (Insulin Aspart 100 Units/Ml 3 Ml Pen) 0 units SC ACHS [facility] Stop: 07/27/21 09:29 Last Admin: 06/29/21 17:48 Dose: 8 units Documented by: Insulin Glargine (Insulin Glargine Solostar 100 Units/Ml 3 Ml Pen) 10 units SC DAILY [facility] Stop: 07/27/21 09:59 Last Admin: 06/29/21 09:36 Dose: 10 units Documented by: Levalbuterol HCl (Levalbuterol Tartrate 15 Gm Hfa.Aer.Ad) 2 puffs INH Q4R PRN PRN Reason: Shortness Of Breath Or Wheezing Stop: 07/27/21 09:58 Miscellaneous (Carbohydrates For Hypoglycemia ) 15 - 30 gm PO UD PRN PRN Reason: Hypoglycemia Protocol Stop: 07/27/21 09:12 Multivitamins (Multivitamin Tab) 1 tab PO [facility] Stop: 07/27/21 09:59 Last Admin: 06/29/21 09:04 Dose: 1 tab Documented by: Oxycodone HCl (Oxycodone Hcl Ir 5 Mg Tab (Immediate Release)) 5 mg PO Q4H PRN PRN Reason: Pain Stop: 07/11/21 09:12 Pantoprazole Sodium (Pantoprazole 40 Mg Tab) [facility] [place]; Protocol Stop: 07/27/21 09:59 Last Admin: 06/29/21 09:05 Dose: 40 mg Documented by:
[2021-06-30] MEDS: MULTIVITAMIN TAB PO SCH (08:39)
[2021-06-30] MEDS: PANTOprazole 40 MG TAB PO SCH (08:39)
[2021-06-30] MEDS: GABAPENTIN 300 MG CAP PO SCH ×2 (08:40→20:35)
[2021-06-30] MEDS: ENOXAPARIN INJ 40 MG/0.4 ML SYR SQ SCH (08:40)
[2021-06-30] MEDS: dexAMETHasone 6 MG in SYRINGE 0 ML IV SCH (08:40)
[2021-06-30] MEDS: guaiFENesin 600 MG TABCR PO SCH ×2 (08:40→20:35)
[2021-06-30] MEDS: AZITHROMYCIN 250 MG TAB PO SCH (08:40)
[2021-06-30] MEDS: BARICITINIB 2 MG TAB PO SCH (08:44)
[2021-06-30] MEDS: INSULIN ASPART 100 UNITS/ML 3 ML PEN SC SCH ×5 (08:47→20:44)
[2021-06-30] MEDS: INSULIN GLARGINE SOLOSTAR 100 UNITS/ML 3 ML PEN SC SCH (08:47)
[2021-06-30] MEDS: cefUROXime axetil 500 MG TAB PO SCH ×2 (13:06→20:35)
--- NOTE | 2021-06-30 17:37 | Hospitalist Progress Note ---
Date of Service June 30, 2021 Assessment & Plan (1) Acute hypoxemic respiratory failure: Plan: Secondary to severe COVID-19 pneumonia, cont decadron, barcitinib. Elevated procalcitonin on admission, short course antibiotics per pulmonology. Repeat procalcitonin this morning was normal. Doing well clinically. Cont to wean oxygen as tolerated. (2) Pneumonia due to COVID-19 virus: Plan: cont plan as above, notably treating for possible superimposed bacterial pneumonia, also. Follow-up chest xray in 4 weeks to ensure complete resolution of pneumonia. (3) CLL (chronic lymphocytic leukemia): Plan: follows with [facility] Hematology, trend CBC, WBC 65K (4) Diabetes mellitus type 2 in obese: Plan: cont basal bolus insulin while admitted and on steroid therapy. Currently at goal. A1C uncontrolled. Close outpatient follow-up recommended. (5) Transaminitis: Plan: Likely multifactorial in setting of fatty liver and covid-19 viral infection. Currently without abdominal pain or fever and tolerating food. Cont to monitor as he improves. (6) DVT prophylaxis: Plan: Lovenox Full Code Dispo-cont PCU monitoring, home when off oxygen. Esha Membreno DO [facility] Hospitalist Admission and Anticipated Discharge Date Admission Date: June 27, 2021 Subjective 66 yo M presented with covid pneumonia. feeling well today denies symptoms breathing and oxygenation needs continue to improve reports having resolution of constipation Review of Systems Review of Systems: At least ten systems were reviewed and negative except as indicated in HPI above. Physical Exam Physical Exam: CONSTITUTIONAL: WNWD, vitals as above, generally well- appearing, NAD EYES: normal conjunctivae, no scleral icterus ENT: external ear and nose normal NECK: trachea midline RESPIRATORY: clear to auscultation bilaterally, no crackles, rales or wheezes, normal respiratory effort CARDIOVASCULAR: regular rate and rhythm, S1 and 2 heard without murmurs, gallops or rubs, no JVD, no peripheral edema GASTROINTESTINAL: soft, nontender, ND, no guarding MUSCULOSKELETAL: strength 5/5 throughout, head is normocephalic and atraumatic, ambulating independently SKIN: warm and dry NEUROLOGIC: No facial palsy, no dysarthria. CN 2-12 grossly intact, no sensory deficit, normal cognition, normal speech, no tremor, no gross focal deficits. PSYCHIATRIC: alert cooperative and oriented to person, place and time. Results & Data Results & Data ([facility]) Vital Signs (Past 12 Hours) Vital Signs Temp Pulse Pulse Resp BP Pulse Ox 06/30/21 16:00 36.9 C 70 67 21 129/65 96 06/30/21 11:46 36.9 C 71 14 130/63 94 06/30/21 08:00 59 L 06/30/21 07:37 36.3 C L 64 18 126/56 L 91 Medications Administered Current Inpatient Medications Acetaminophen (Acetaminophen 325 Mg Tab) 325 mg PO Q6H PRN PRN Reason: Mild Pain Stop: 07/27/21 09:12 Azithromycin (Azithromycin 250 Mg Tab) 250 mg PO QAM [facility] Stop: 07/06/21 09:59 Last Admin: 06/30/21 08:40 Dose: 250 mg Documented by: Baricitinib (Baricitinib 2 Mg Tab) 4 mg PO DAILY [facility] Stop: 07/12/21 15:59 Last Admin: 06/30/21 08:44 Dose: 4 mg Documented by: Cefuroxime Axetil (Cefuroxime Axetil 500 Mg Tab) 500 mg PO BID@1100,2100 [facility] Stop: 07/06/21 10:59 Last Admin: 06/30/21 13:06 Dose: 500 mg Documented by: Dextrose (Dextrose 50% 50 Ml Syringe) 25 - 50 ml IV UD PRN; Protocol PRN Reason: Hypoglycemia Protocol Stop: 07/27/21 09:12 Enoxaparin Sodium (Enoxaparin Inj 40 Mg/0.4 Ml Syr) 40 mg SQ QAM [facility] Stop: 07/27/21 09:59 Last Admin: 06/30/21 08:40 Dose: 40 mg Documented by: Gabapentin (Gabapentin 300 Mg Cap) 300 mg PO BID [facility] Stop: 07/27/21 09:59 Last Admin: 06/30/21 08:40 Dose: 300 mg Documented by: Glucagon (Glucagon For Inj 1 Mg Vial) 1 mg SQ UD PRN; Protocol PRN Reason: Hypoglycemia Protocol Stop: 07/27/21 09:12 Glucose (Glucose 10 Tabs/Tube) 4 - 8 tabs PO UD PRN; Protocol PRN Reason: Hypoglycemia Protocol Stop: 07/27/21 09:12 Glucose (Glucose 40% Gel 15 Gm Tube) 15 - 30 gm PO UD PRN; Protocol PRN Reason: Hypoglycemia Protocol Stop: 07/27/21 09:12 Guaifenesin (Guaifenesin 600 Mg Tabcr) 600 mg PO Q12 [facility] Stop: 07/27/21 09:59 Last Admin: 06/30/21 08:40 Dose: 600 mg Documented by: Promethazine HCl 12.5 mg/ (Sodium Chloride) 50.5 mls @ 202 mls/hr IV Q6H PRN PRN Reason: Nausea And Vomiting Stop: 07/27/21 09:29 Dexamethasone 6 mg/ Syringe 1.5 mls @ 1 mls/min IV DAILY [facility] Stop: 07/28/21 04:24 Last Admin: 06/30/21 08:40 Dose: 1 mls/min Documented by: Insulin Aspart (Insulin Aspart 100 Units/Ml 3 Ml Pen) 0 units SC ACHS [facility] Stop: 07/27/21 09:29 Last Admin: 06/30/21 17:34 Dose: 6 units Documented by: Insulin Glargine (Insulin Glargine Solostar 100 Units/Ml 3 Ml Pen) 10 units SC DAILY [facility] Stop: 07/27/21 09:59 Last Admin: 06/30/21 08:47 Dose: 10 units Documented by: Levalbuterol HCl (Levalbuterol Tartrate 15 Gm Hfa.Aer.Ad) 2 puffs INH Q4R PRN PRN Reason: Shortness Of Breath Or Wheezing Stop: 07/27/21 09:58 Miscellaneous (Carbohydrates For Hypoglycemia ) 15 - 30 gm PO UD PRN PRN Reason: Hypoglycemia Protocol Stop: 07/27/21 09:12 Multivitamins (Multivitamin Tab) 1 tab PO [facility] Stop: 07/27/21 09:59 Last Admin: 06/30/21 08:39 Dose: 1 tab Documented by: Oxycodone HCl (Oxycodone Hcl Ir 5 Mg Tab (Immediate Release)) 5 mg PO Q4H PRN PRN Reason: Pain Stop: 07/11/21 09:12 Pantoprazole Sodium (Pantoprazole 40 Mg Tab) 40 mg PO QAM [facility]; Protocol Stop: 07/27/21 09:59 Last Admin: 06/30/21 08:39 Dose: 40 mg Documented by:
[2021-07-01 06:24] LABS: Hematocrit (blood only) 38.6 % (42-52); Hemoglobin 12.1 g/dL (14.0-18.0); Mean Corpuscular Hemoglobin 30.3 pg (25-34); Mean Corpuscular Hgb Conc 31.3 g/dL (32-36); Mean Corpuscular Volume 96.7 fL (80-100); Mean Platelet Volume 10.3 fL (7.4-10.4); Platelet Count 218 K/uL (130-400); RDW Coefficient of Variation 14.7 % (11.5-14.5); RDW Standard Deviation 51.6 fL (36.4-46.3); Red Blood Count 3.99 M/uL (4.7-6.1); White Blood Count 67.07 K/uL (4.8-10.8)
[2021-07-01 06:51] LABS: Albumin Globulin Ratio 0.5 (0.9-2); Albumin Level 1.9 gm/dl (3.4-5.0); BUN Creatinine Ratio 23.4 (10-20); Bilirubin,Total 0.7 mg/dl (0.2-1); C Reactive Protein 4.27 mg/dl (0-0.29); Calcium 7.7 mg/dl (8.5-10.1); Creatinine Clr Calc Pharmacy 139.4 ml/min; Est GFR (Non-African American) 102.7 ml/min; Potassium 4.7 mmol/L (3.5-5.1); Total Protein 5.9 gm/dl (6.4-8.2)
[2021-07-01] MEDS: GABAPENTIN 300 MG CAP PO SCH ×2 (08:37→20:01)
[2021-07-01] MEDS: dexAMETHasone 6 MG in SYRINGE 0 ML IV SCH (08:38)
[2021-07-01] MEDS: AZITHROMYCIN 250 MG TAB PO SCH (08:38)
[2021-07-01] MEDS: guaiFENesin 600 MG TABCR PO SCH ×2 (08:38→20:00)
[2021-07-01] MEDS: ENOXAPARIN INJ 40 MG/0.4 ML SYR SQ SCH (08:38)
[2021-07-01] MEDS: PANTOprazole 40 MG TAB PO SCH (08:38)
[2021-07-01] MEDS: MULTIVITAMIN TAB PO SCH (08:38)
[2021-07-01] MEDS: INSULIN GLARGINE SOLOSTAR 100 UNITS/ML 3 ML PEN SC SCH (08:39)
[2021-07-01] MEDS: INSULIN ASPART 100 UNITS/ML 3 ML PEN SC SCH ×4 (08:39→20:45)
[2021-07-01] MEDS: BARICITINIB 2 MG TAB PO SCH (08:44)
[2021-07-01] MEDS: cefUROXime axetil 500 MG TAB PO SCH ×2 (12:26→20:00)
--- NOTE | 2021-07-01 17:38 | Hospitalist Progress Note ---
Date of Service July 01, 2021 Assessment & Plan (1) Acute hypoxemic respiratory failure: Plan: Secondary to severe COVID-19 pneumonia, cont decadron, barcitinib. Elevated procalcitonin on admission, short course antibiotics per pulmonology. Repeat procalcitonin this morning was normal. Doing well clinically. Cont to wean oxygen as tolerated. (2) Pneumonia due to COVID-19 virus: Plan: cont plan as above, notably treating for possible superimposed bacterial pneumonia, also. Follow-up chest xray in 4 weeks to ensure complete resolution of pneumonia. (3) CLL (chronic lymphocytic leukemia): Plan: follows with [facility] Hematology, trend CBC, WBC 65K (4) Diabetes mellitus type 2 in obese: Plan: cont basal bolus insulin while admitted and on steroid therapy. Currently at goal. A1C uncontrolled. Close outpatient follow-up recommended. (5) Transaminitis: Plan: Likely multifactorial in setting of fatty liver and covid-19 viral infection. Slightly worse despite clinical improvement, therefore, will stop baricitinib therapy. Currently without abdominal pain or fever and tolerating food. Cont to monitor as he improves. (6) DVT prophylaxis: Plan: Lovenox Full Code Dispo-cont PCU monitoring, home when off oxygen. Esha Membreno DO [facility] Hospitalist Admission and Anticipated Discharge Date Admission Date: June 27, 2021 Subjective 66 yo M presented with covid pneumonia. feeling well today denies symptoms breathing and oxygenation needs continue to improve Review of Systems Review of Systems: At least ten systems were reviewed and negative except as indicated in HPI above. Physical Exam Physical Exam: CONSTITUTIONAL: WNWD, vitals as above, generally well- appearing, NAD EYES: normal conjunctivae, no scleral icterus ENT: external ear and nose normal NECK: trachea midline RESPIRATORY: clear to auscultation bilaterally, no crackles, rales or wheezes, normal respiratory effort CARDIOVASCULAR: regular rate and rhythm, S1 and 2 heard without murmurs, gallops or rubs, no JVD, no peripheral edema GASTROINTESTINAL: soft, nontender, ND, no guarding MUSCULOSKELETAL: strength 5/5 throughout, head is normocephalic and atraumatic, ambulating independently SKIN: warm and dry NEUROLOGIC: No facial palsy, no dysarthria. CN 2-12 grossly intact, no sensory deficit, normal cognition, normal speech, no tremor, no gross focal deficits. PSYCHIATRIC: alert cooperative and oriented to person, place and time. Results & Data Results & Data ([facility]) Vital Signs (Past 12 Hours) Vital Signs Temp Pulse Pulse Resp BP Pulse Ox 07/01/21 15:29 36.4 C L 62 18 134/63 92 07/01/21 11:08 36.7 C 78 18 139/79 90 07/01/21 08:00 63 07/01/21 07:16 36.4 C L 63 18 132/60 93 Laboratory Results Short CBC 07/01/21 Range/Units 05:23 WBC 67.07 H* (4.8-10.8) K/uL Hgb 12.1 L (14.0-18.0) g/dL Hct 38.6 L (42-52) % Plt Count 218 (130-400) K/uL BMP 07/01/21 05:23 Sodium 135 L Potassium 4.7 Chloride 102 Carbon Dioxide 30 BUN 15 Creatinine 0.63 Glucose 133 H Calcium 7.7 L Liver Function 07/01/21 Range/Units 05:23 Total Bilirubin 0.7 (0.2-1) mg/dl AST 120 H (15-37) U/L ALT 170 H (12-78) U/L Alkaline Phosphatase 126 H (45-117) U/L Albumin 1.9 L (3.4-5.0) gm/dl Medications Administered Current Inpatient Medications Acetaminophen (Acetaminophen 325 Mg Tab) 325 mg PO Q6H PRN PRN Reason: Mild Pain Stop: 07/27/21 09:12 Azithromycin (Azithromycin 250 Mg Tab) 250 mg PO QAM [facility] Stop: 07/06/21 09:59 Last Admin: 07/01/21 08:38 Dose: 250 mg Documented by: Baricitinib (Baricitinib 2 Mg Tab) 4 mg PO DAILY [facility] Stop: 07/12/21 15:59 Last Admin: 07/01/21 08:44 Dose: 4 mg Documented by: Cefuroxime Axetil (Cefuroxime Axetil 500 Mg Tab) 500 mg PO BID@1100,2100 [facility] Stop: 07/06/21 10:59 Last Admin: 07/01/21 12:26 Dose: 500 mg Documented by: Dextrose (Dextrose 50% 50 Ml Syringe) 25 - 50 ml IV UD PRN; Protocol PRN Reason: Hypoglycemia Protocol Stop: 07/27/21 09:12 Enoxaparin Sodium (Enoxaparin Inj 40 Mg/0.4 Ml Syr) 40 mg SQ QAM [facility] Stop: 07/27/21 09:59 Last Admin: 07/01/21 08:38 Dose: 40 mg Documented by: Gabapentin (Gabapentin 300 Mg Cap) 300 mg PO BID [facility] Stop: 07/27/21 09:59 Last Admin: 07/01/21 08:37 Dose: 300 mg Documented by: Glucagon (Glucagon For Inj 1 Mg Vial) 1 mg SQ UD PRN; Protocol PRN Reason: Hypoglycemia Protocol Stop: 07/27/21 09:12 Glucose (Glucose 10 Tabs/Tube) 4 - 8 tabs PO UD PRN; Protocol PRN Reason: Hypoglycemia Protocol Stop: 07/27/21 09:12 Glucose (Glucose 40% Gel 15 Gm Tube) 15 - 30 gm PO UD PRN; Protocol PRN Reason: Hypoglycemia Protocol Stop: 07/27/21 09:12 Guaifenesin (Guaifenesin 600 Mg Tabcr) 600 mg PO Q12 [facility] Stop: 07/27/21 09:59 Last Admin: 07/01/21 08:38 Dose: 600 mg Documented by: Promethazine HCl 12.5 mg/ (Sodium Chloride) 50.5 mls @ 202 mls/hr IV Q6H PRN PRN Reason: Nausea And Vomiting Stop: 07/27/21 09:29 Dexamethasone 6 mg/ Syringe 1.5 mls @ 1 mls/min IV DAILY [facility] Stop: 07/28/21 04:24 Last Admin: 07/01/21 08:38 Dose: 1 mls/min Documented by: Insulin Aspart (Insulin Aspart 100 Units/Ml 3 Ml Pen) 0 units SC ACHS [facility] Stop: 07/27/21 09:29 Last Admin: 07/01/21 17:34 Dose: 6 units Documented by: Insulin Glargine (Insulin Glargine Solostar 100 Units/Ml 3 Ml Pen) 10 units SC DAILY [facility] Stop: 07/27/21 09:59 Last Admin: 07/01/21 08:39 Dose: 10 units Documented by: Levalbuterol HCl (Levalbuterol Tartrate 15 Gm Hfa.Aer.Ad) 2 puffs INH Q4R PRN PRN Reason: Shortness Of Breath Or Wheezing Stop: 07/27/21 09:58 Miscellaneous (Carbohydrates For Hypoglycemia ) 15 - 30 gm PO UD PRN PRN Reason: Hypoglycemia Protocol Stop: 07/27/21 09:12 Multivitamins (Multivitamin Tab) 1 tab PO [facility] Stop: 07/27/21 09:59 Last Admin: 07/01/21 08:38 Dose: 1 tab Documented by: Oxycodone HCl (Oxycodone Hcl Ir 5 Mg Tab (Immediate Release)) 5 mg PO Q4H PRN PRN Reason: Pain Stop: 07/11/21 09:12 Pantoprazole Sodium (Pantoprazole 40 Mg Tab) 40 mg PO [facility]; Protocol Stop: 07/27/21 09:59 Last Admin: 07/01/21 08:38 Dose: 40 mg Documented by:
[2021-07-02 07:13] LABS: Hematocrit (blood only) 37.2 % (42-52); Hemoglobin 11.7 g/dL (14.0-18.0); Mean Corpuscular Hemoglobin 29.8 pg (25-34); Mean Corpuscular Hgb Conc 31.5 g/dL (32-36); Mean Corpuscular Volume 94.9 fL (80-100); Platelet Count 239 K/uL (130-400); RDW Coefficient of Variation 14.7 % (11.5-14.5); RDW Standard Deviation 50.3 fL (36.4-46.3); Red Blood Count 3.92 M/uL (4.7-6.1); White Blood Count 72.05 K/uL (4.8-10.8)
[2021-07-02 07:42] LABS: Albumin Level 1.9 gm/dl (3.4-5.0); BUN Creatinine Ratio 24.4 (10-20); Calcium 7.3 mg/dl (8.5-10.1); Creatinine Clr Calc Pharmacy 146.2 ml/min; Est GFR (African American) 121.4 ml/min; Est GFR (Non-African American) 104.8 ml/min; Potassium 4.8 mmol/L (3.5-5.1)
[2021-07-02 07:45] LABS: Albumin Globulin Ratio 0.5 (0.9-2); Bilirubin,Total 0.6 mg/dl (0.2-1); Globulin 4.1 gm/dl (2.5-4.0)
[2021-07-02] MEDS: PANTOprazole 40 MG TAB PO SCH (08:32)
[2021-07-02] MEDS: MULTIVITAMIN TAB PO SCH (08:32)
[2021-07-02] MEDS: GABAPENTIN 300 MG CAP PO SCH ×2 (08:32→20:01)
[2021-07-02] MEDS: AZITHROMYCIN 250 MG TAB PO SCH (08:32)
[2021-07-02] MEDS: guaiFENesin 600 MG TABCR PO SCH ×2 (08:32→20:00)
[2021-07-02] MEDS: INSULIN GLARGINE SOLOSTAR 100 UNITS/ML 3 ML PEN SC SCH (08:33)
[2021-07-02] MEDS: ENOXAPARIN INJ 40 MG/0.4 ML SYR SQ SCH (08:33)
[2021-07-02] MEDS: INSULIN ASPART 100 UNITS/ML 3 ML PEN SC SCH ×4 (08:34→20:00)
[2021-07-02] MEDS: dexAMETHasone 6 MG in SYRINGE 0 ML IV SCH (08:44)
[2021-07-02] MEDS: cefUROXime axetil 500 MG TAB PO SCH ×2 (12:11→20:00)
[2021-07-02] MEDS ORDERED: PHARMACY GLYCEMIC MGMT CONSULT PRN (12:27)
[2021-07-02] MEDS ORDERED: INSULIN ASPART 100 UNITS/ML 3 ML PEN SC ONE (13:00)
[2021-07-02] MEDS ORDERED: INSULIN GLARGINE SOLOSTAR 100 UNITS/ML 3 ML PEN SC ONE (13:00)
[2021-07-02] MEDS ORDERED: INSULIN HUMAN REGULAR PER UNIT 10 UNITS in SYRINGE 9.9 ML IV ONE (13:15)
--- NOTE | 2021-07-02 13:43 | Pharmacy Report ---
Pharmacy Glycemic Short Note 2 - Date of Service July 02, 2021 - Glycemic Short BSG Results (Last 24 hours): 07/01/21 07/01/21 07/02/21 17:01 20:33 06:29 Glucose 138 H POC Glucose 218 H 163 H 07/02/21 07/02/21 07:52 11:34 Glucose POC Glucose 153 H 317 H* OUTPATIENT ANTIDIABETIC REGIMEN: * Metformin 1 g PO BIDM * Jardiance 25 mg PO daily * Repaglinide 1-4 mg PO TID * HbA1c ordered for tomorrow (07/03/21) ASSESSMENT: * HM is a 66 year old male admitted on 06/27/21 with COVID-19 pneumonia * BSGs have been elevated during admission, pharmacy consulted today for lunch BSG of 317 mg/dL * Prior insulin doses of Lantus 10 units SC daily, Novolog CF of 25 and CR of 15 * Will give one-time IV insulin bolus, increase Lantus, and tighten Novolog parameters PLAN FOR INPATIENT GLYCEMIC CONTROL: * Hold outpatient oral diabetes medications * Basal insulin * Lantus 20 units SQ daily * Bolus insulin * NovoLog per scale ACHS or Q6hrs while NPO * Goal Range: Low 110 mg/dL - High 140 mg/dL * Correction Factor: 20 mg/dL/unit * Nutritional / Prandial insulin per carb ratio of 1 unit per 7 grams CHO consumed PLAN FOR DISCHARGE: * tbd
--- NOTE | 2021-07-02 13:49 | Hospitalist Progress Note ---
Date of Service July 02, 2021 Assessment & Plan (1) Acute hypoxemic respiratory failure: Plan: Currently on 4 L of nasal cannula. Later this afternoon weaned down to 2 L of nasal cannula. Appreciate pulmonary medicine input. Continue with Decadron. Have complete short course of antibiotics for possible bacterial component. Overall feeling okay. (2) Pneumonia due to COVID-19 virus: Plan: Follow-up chest xray in 4 weeks to ensure complete resolution of pneumonia. Overall doing okay. Currently on 2 L of nasal cannula. (3) CLL (chronic lymphocytic leukemia): Plan: follows with [facility] Hematology, WBC today at 72 from 67 yesterday. Continue monitor daily CBC. Patient remains afebrile. Blood cultures from 06/29 remain negative. Currently patient remains on Decadron. (4) Diabetes mellitus type 2 in obese: Plan: cont basal bolus insulin while admitted and on steroid therapy. Currently at goal. A1C uncontrolled. Close outpatient follow-up recommended. (5) Transaminitis: Plan: Likely multifactorial in setting of fatty liver and covid-19 viral infection. Baricitinib discontinued given elevated LFTs. Continue monitor daily LFTs. (6) DVT prophylaxis: Plan: Lovenox Full Code Dispo-cont PCU monitoring, home when off oxygen. Admission and Anticipated Discharge Date Admission Date: June 27, 2021 Subjective Doing okay this morning. Resting comfortably. Was on 4 L of nasal cannula. Denies any worsening shortness of breath or any cough. Review of system is negative. Review of Systems Review of Systems: All systems reviewed & are unremarkable except as noted in HPI & below Physical Exam Physical Exam: General: A&Ox3 HENT: NCAT, MMM, EOMI Eyes: PERRLA Neck: Supple, normal range of motion CVS: normal rate and rhythm Resp: b/l decrease breath sounds Abdomen: Soft, ND/NT, +BS Extremities: No c/c/e Neuro: face symmetric, strength grossly equal, no focal deficit Skin: warm and dry, no rashes/lesions/errythema MSK: normal ROM, no joint swelling/erythema Results & Data Results & Data ([facility]) Vital Signs (Past 12 Hours) Vital Signs Temp Pulse Pulse Resp BP BP Pulse Ox 07/02/21 12:30 94 07/02/21 11:32 36.6 C 66 22 129/65 96 07/02/21 08:30 59 L 07/02/21 07:54 36.5 C 63 20 136/65 91 07/02/21 03:24 36.6 C 62 19 140/67 92
[2021-07-03 08:04] LABS: Estimated Average Glucose 183 mg/dl
[2021-07-03] MEDS: dexAMETHasone 6 MG in SYRINGE 0 ML IV SCH (08:42)
[2021-07-03] MEDS: ENOXAPARIN INJ 40 MG/0.4 ML SYR SQ SCH (08:43)
[2021-07-03] MEDS: MULTIVITAMIN TAB PO SCH (08:43)
[2021-07-03] MEDS: guaiFENesin 600 MG TABCR PO SCH (08:44)
[2021-07-03] MEDS: AZITHROMYCIN 250 MG TAB PO SCH (08:44)
[2021-07-03] MEDS: PANTOprazole 40 MG TAB PO SCH (08:44)
[2021-07-03] MEDS: GABAPENTIN 300 MG CAP PO SCH (08:44)
[2021-07-03] MEDS ORDERED: INSULIN GLARGINE SOLOSTAR 100 UNITS/ML 3 ML PEN SC SCH (09:00)
[2021-07-03] MEDS: INSULIN ASPART 100 UNITS/ML 3 ML PEN SC SCH ×2 (09:15→12:54)
[2021-07-03] MEDS: cefUROXime axetil 500 MG TAB PO SCH (10:34)
--- NOTE | 2021-07-03 11:02 | Pharmacy Report ---
Pharmacy Glycemic Short Note 2 - Date of Service July 03, 2021 - Glycemic Short BSG Results (Last 24 hours): 07/02/21 07/02/21 07/02/21 11:34 16:32 19:56 POC Glucose 317 H* 175 H 185 H 07/03/21 07:38 POC Glucose 154 H OUTPATIENT ANTIDIABETIC REGIMEN: * Metformin 1 g PO BIDM * Jardiance 25 mg PO daily * Repaglinide 1-4 mg PO TID * HbA1c: 8% (07/03/21) ASSESSMENT: 07/03: * BSGs improved yesterday following consult, 317 -> 175 -> 185 mg/dL * Will further tighten Novolog parameters today and continue basal * Continues on dexamethasone 6 mg IV daily 07/02: * HM is a 66 year old male admitted on 06/27/21 with COVID-19 pneumonia * BSGs have been elevated during admission, pharmacy consulted today for lunch BSG of 317 mg/dL * Prior insulin doses of Lantus 10 units SC daily, Novolog CF of 25 and CR of 15 * Will give one-time IV insulin bolus, increase Lantus, and tighten Novolog parameters PLAN FOR INPATIENT GLYCEMIC CONTROL: * Hold outpatient oral diabetes medications * Basal insulin * Lantus 20 units SQ daily * Bolus insulin - tighten * NovoLog per scale ACHS or Q6hrs while NPO * Goal Range: Low 110 mg/dL - High 140 mg/dL * Correction Factor: 15 mg/dL/unit * Nutritional / Prandial insulin per carb ratio of 1 unit per 5 grams CHO consumed PLAN FOR DISCHARGE: * tbd
--- NOTE | 2021-07-03 12:28 | Discharge Summary ---
Date of Service July 03, 2021 Admission HPI Per Admitting Provider History obtained from patient, family, and records. Medical history significant for CLL, hyperlipidemia, ALIE (CPAP noncompliance), DM2 on oral medications. Patient admitted at [facility] last December 2020 for traumatic T-spine fractures, rib fractures, small left-sided pneumothorax, retroperitoneal hematoma secondary to fall from ladder. Patient underwent T10-L2 ORIF. 2 weeks ago, patient developed nasal and chest congestion reminiscent of prior sinusitis attacks. Patient PCP prescribed amoxicillin course without improvement of symptoms. Outpatient COVID-19 test noted to be positive. Patient noted worsening shortness of breath over the last 2 days along with chest pain with coughing. Dizziness/lightheadedness along with persistent dry cough symptoms. Diarrhea symptoms without abdominal pain. At the ER, O2 sats 70s on arrival. Patient given Decadron at the ER. Medical History as above Surgical History : Left knee surgery, lumbar spine fusion, neck spine fusion, shoulder surgeries, inguinal hernia repair Family History : Alcoholism, DM, bone cancer Personal/Social history : Non-smoker, occasional EtOH intake, prior [employer] employment Admission Exam Per Admitting Provider GENERAL: Slightly uncomfortable, obese, minimal respiratory distress SKIN: Pallor, warm HEENT: Pale palpebral conjunctivae, no ptosis, dry buccal mucosa, O2 mask in place NECK : Supple, short neck, no tenderness CHEST : Decreased breath sounds, uppercase expiratory wheezes, no tenderness HEART : RRR, no obvious murmurs ABDOMEN: Some distention, nontender EXTREMITIES : No LE swelling/tenderness, no other conspicuous deformities noted NEUROLOGIC : Coherent, no facial asymmetry, no other gross focality Principal Diagnosis covid pneumonia Discharge Exam General: A&Ox3 HENT: NCAT, MMM, EOMI Eyes: PERRLA Neck: Supple, normal range of motion CVS: normal rate and rhythm Resp: b/l decrease breath sounds Abdomen: Soft, ND/NT, +BS Extremities: No c/c/e Neuro: face symmetric, strength grossly equal, no focal deficit Skin: warm and dry, no rashes/lesions/errythema MSK: normal ROM, no joint swelling/erythema Discharge Data Allergies Allergy/AdvReac Type Severity Reaction Status Date / Time No Known Allergies Allergy Unknown Verified 06/27/21 07:33 Consultations 06/27/21 04:09 ED Decision to Admit Stat 06/28/21 05:53 Consult Pulmonology Routine Ordered Studies 06/27/21 01:31 CT angio chest PE protocol Urgent Hospital Course (1) Acute hypoxemic respiratory failure: Patient completed therapy with Decadron and baricitinib. Patient was also treated with a course of antibiotics for possible bacterial component. Patient was weaned down to from the oxygen to room air. On the day of discharge patient was doing okay. Hemodynamically he was doing fine. He was stable on room air. Patient was discharged in stable condition. (2) Pneumonia due to COVID-19 virus: Follow-up chest xray in 4 weeks to ensure complete resolution of pneumonia. (3) CLL (chronic lymphocytic leukemia): Follows with [facility] Hematology, Continue monitor daily CBC. Patient remains afebrile. Most recent WBC at 72. Blood cultures from 06/29 remain negative. (4) Diabetes mellitus type 2 in obese: Currently at goal. A1C uncontrolled. Close outpatient follow-up recommended. (5) Transaminitis: Likely multifactorial in setting of fatty liver and covid-19 viral infection. Baricitinib discontinued given elevated LFTs. Continue monitor daily LFTs. Will need OP LFTs f/u. Total Time Total Time Spent Total Time Spent (In Minutes): 35 Discharge Plan Discharge Items Patient Disposition: Home - Self-Care Reason For Visit: RESP FAILURE, COVID Discharge Diagnosis: COVID 19 Activity: Resume your previous activity Non-emergency contact: Primary Care Provider Call non-emergency contact if: your symptoms worsen Follow-up/Referrals: Winston Luna MD [Primary Care Provider] - (Date & Time 07/05/2021 4:00 PM Provider Pepito Guerar MD [facility] PLEASE NOTE THAT THIS IS A TELEHEALTH APPOINTMENT. PLEASE FOLLOW THE INSTRUCTIONS PROVIDED IN YOUR EMAIL. IF YOU HAVE ANY QUESTIONS REGARDING THIS APPOINTMENT, PLEASE CALL ) Diet: Heart Healthy Addtl Attending Provider Instructions: Follow-up with your primary care physician and hematology as an outpatient. You will need repeat CBC when you see your primary care physician. Pending Studies at Discharge: No Stand-Alone Forms: [facility], Smoking Cessation Medications and DC Order Prescriptions: Continued multivitamin Tablet 1 tab PO QAM RF: 0 repaglinide 2 mg tablet 1 - 4 mg PO DIRECTED RF: 0 metformin 1,000 mg tablet 1,000 mg PO BID RF: 0 gabapentin 300 mg capsule 300 mg PO BID RF: 0 Jardiance 25 mg tablet 25 mg PO QAM RF: 0 Discharge Orders: Discharge Order (Routine); Ordered 07/03/21 Ordered By: Estrella Aguila/Other Patient Handouts: A1C, Managing Type 2 Diabetes Admission Data Admit Date/Time: 06/27/21 05:46 Attending Provider: Estrella Martin Admit Provider: Sb Morales Primary Care Provider: Winston Luna Other Providers: Sb Morales ; Nando Arriola ; Reddy Heart ; Akbar Guillermo ; Kayode Cha ; Sonny Odell Other Interventions: Discharge Summary Assessment (RN) Last Done: 07/03/21 12:55
== END 2021-07-03 14:25 | disposition home or self-care (01) | DRG 177 ==
LOC: ED 00:56 → EDINP 05:46 → SUATTDRO 05:46 → 2S 15:04
DX: Z83.3 Family history of diabetes mellitus; J15.9 Unspecified bacterial pneumonia; E78.5 Hyperlipidemia, unspecified; Z79.84 Long term (current) use of oral hypoglycemic drugs; Z68.31 Body mass index [BMI] 31.0-31.9, adult; U07.1 COVID-19; Z91.19 Patient's noncompliance with other medical treatment and regimen; E11.40 Type 2 diabetes mellitus with diabetic neuropathy, unspecified; E66.9 Obesity, unspecified; G47.33 Obstructive sleep apnea (adult) (pediatric); J12.82 Pneumonia due to coronavirus disease 2019; C91.12 Chronic lymphocytic leukemia of B-cell type in relapse; Z98.1 Arthrodesis status; R74.01 Elevation of levels of liver transaminase levels; J96.01 Acute respiratory failure with hypoxia

== ENCOUNTER 2024-02-09 09:38 | Inpatient (IN) ==
--- NOTE | 2024-02-09 09:59 | Emergency Department Note ---
Impression & Plan CHF (congestive heart failure), CLL (chronic lymphocytic leukemia), Leukocytosis, Anemia, Shortness of breath ED Provider Note NAME: KIRSTEN DIAZ AGE: 68 SEX: M : 1955 ARRIVES VIA: Walk-In INFORMANT: Patient ED PROVIDER(S): Zach Pandya DO CHIEF COMPLAINT: shortness of breath HPI: Patient is a 68-year-old male who presents to the ER for shortness of breath. He had a cath performed by Dr. Quiroz in early January. He had a CABG at the end of January at [facility] per who provides additional history. He was done on the and was discharged on . Several days after this he started with shortness of breath. He notes he can no longer even get up and move around. He denies any chest pain or belly pain. He admits to increased swelling in the legs. No dysuria, urgency, or frequency. No other exacerbating or remitting factors. He can no longer lie flat ADDITIONAL HISTORY OBTAINED:He had a CABG at the end of January at [facility] per who provides additional history. Chronic Medical/Social Conditions Affecting Care: Per HPI PAST MEDICAL HISTORY:See Below PAST SURGICAL HISTORY:See Below FAMILY HISTORY:See Below SOCIAL HISTORY:See Below HOME MEDICATIONS:See Below ALLERGIES:See Below VITALS:See Below PHYSICAL EXAMINATION: GENERAL: Sitting up in bed, alert, well appearing, well nourished, no distress, non-toxic EYE EXAM: normal conjunctiva. PERRL and EOM's grossly intact. OROPHARYNX: mucous membranes are moist NECK: supple, no nuchal rigidity, no adenopathy, non-tender LUNGS: Clear to auscultation. Normal chest wall mechanics HEART: no murmurs, S1 normal and S2 normal ABDOMEN: abdomen soft, non-tender, normo-active bowel sounds, no masses, no rebound or guarding. BACK: Back is symmetrical on inspection and there is no deformity, no midline tenderness, no CVA tenderness. SKIN: no rashes and no bruising UPPER EXTREMITIES: upper extremities are grossly normal. LOWER EXTREMITIES: Pitting edema in the bilateral lower extremities NEURO EXAM: Normal sensorium, cranial nerves II-XII grossly intact, normal speech, no gross weakness of arms, no gross weakness of legs. MEDICAL DECISION MAKING: Patient is a 68-year-old male who presents to the ER for the above-stated complaint. Recent CABG x 4 with a bioprosthetic valve placed on 28 January discharged on the presents for shortness of breath today. Discussed with cardiology on-call Dr. Carlson and he agrees with echo which was ordered and I spoke with the tech and they presented at bedside. Labs show leukocytosis of 59,000 fairly consistent with previous. Mild anemia at 9. BMP with glucose 205. Bilirubin LFTs were fairly unremarkable. Troponin mildly elevated at 30. proBNP elevated at 500. Lipase was normal. Bedside ultrasound performed by myself showed a small pericardial effusion. I contacted lens coating technician as well as the tin can laborer they performed a stat bedside echo which was read by Dr. Carlson. He recommended IV Lasix 20 mg and admission and follow-up with the hospitalist. Consults/Care Managements Discussions: Per [facility] Triage Nursing notes reviewed. Limited review of prior medical records performed Vital Signs: reviewed and remarkable for no significant abnormalities Differential diagnosis: Differential diagnoses includes but is not limited to pneumonia, bronchitis, COPD/Asthma exacerbation, pneumothorax, pulmonary embolism, congestive heart failure, acute coronary syndrome ER treatment provided: See below Diagnostics interpreted by me include EKG and cardiac monitoring as listed below: -Cardiac Monitoring: An order was placed for continuous cardiac monitoring. The monitor shows a rate of 70 with sinus rhythm. -ECG: Sinus rhythm rate of 70 Normal axis No PVCs QTc 516 -Laboratory studies:Interpreted by me as stated above in MDM and shown below. Imaging studies: Xrays: As interpreted by me: Portable AP upright 1 view of the chest shows bilateral effusions CTs show: none Procedures:none Critical Care: None Past Med/Surg History Problem List (Updated 02/09/24 @ 13:36 by Zach Pandya DO) Shortness of breath (Acute) Anemia (Acute) Leukocytosis (Acute) CHF (congestive heart failure) (Acute) GERD (gastroesophageal reflux disease) BPH (benign prostatic hyperplasia) Dyslipidemia Transaminitis CLL (chronic lymphocytic leukemia) (Acute) Obstructive sleep apnea not using CPAP Diabetes mellitus type 2 in obese (08/01/12) Medical History (Updated 02/09/24 @ 13:36 by Zach Pandya DO) History of vertebral fracture Aortic stenosis CAD (coronary artery disease) Melanoma in situ of left shoulder Pneumonia due to COVID-19 virus CLL (chronic lymphocytic leukemia) Left knee DJD Postlaminectomy syndrome, cervical (08/01/12) Surgical History (Updated 02/09/24 @ 13:05 by Dea Johnson PA-C) History of arthroscopic surgery of shoulder History of total left knee replacement History of lumbar fusion History of inguinal hernia repair History of umbilical hernia repair S/P AVR (aortic valve replacement) S/P CABG x 4 S/P cervical spinal fusion (08/01/12) Family History Father Cancer Daughter Diabetes Other Heart disease Social History Smoking Status: Never smoker Tobacco Type: Smokeless Tobacco (Dip or Chew) Hx Alcohol Use: No Hx Substance Use: No Preferred Language: Cook Islander Communication Ability: Effective Laundry Folder Required: No Beliefs That Will Affect Care: None Current Living Situation: Spouse Feels Safe at Home: Yes Assistive Devices: None Allergies Allergies Allergy/AdvReac Type Severity Reaction Status Date / Time amoxicillin AdvReac Gastrointestinal Verified 02/09/24 11:49 Upset Home Meds Home Medications Medication Instructions Recorded Confirmed metformin 1,000 mg tablet 1,000 mg PO BID 12/26/20 02/09/24 multivitamin 1 tab PO QAM 12/26/20 02/09/24 dapagliflozin propanediol 10 mg 10 mg PO QAM 01/15/24 02/09/24 tablet fluticasone propionate 50 2 spray intranasal DAILY 01/15/24 02/09/24 mcg/actuation nasal spray,suspension omeprazole 20 mg tablet,delayed 20 mg PO DAILY 01/15/24 02/09/24 release rosuvastatin 20 mg tablet 20 mg PO HS 01/15/24 02/09/24 semaglutide 2 mg/dose (8 mg/3 mL) 1 mg subcut WK 01/15/24 02/09/24 subcutaneous pen injector (Ozempic) amiodarone 200 mg tablet See Rx Instructions .Route .COMPLEX 02/09/24 02/09/24 aspirin 81 mg tablet,delayed 81 mg PO QAM 02/09/24 02/09/24 release furosemide 40 mg tablet See Rx Instructions .Route .COMPLEX 02/09/24 02/09/24 metoprolol succinate 25 mg 25 mg PO QAM 02/09/24 02/09/24 tablet,extended release 24 hr oxycodone 5 mg tablet 5 mg PO Q4H PRN Severe Pain (Scale 02/09/24 02/09/24 Score 7-10) potassium chloride 10 mEq 10 meq PO BID 02/09/24 02/09/24 tablet,extended release repaglinide 2 mg tablet 4 mg PO HS 02/09/24 02/09/24 tamsulosin 0.4 mg capsule 0.4 mg PO DAILY 02/09/24 02/09/24 Results & Data (ED) Vital Signs Vital Signs - 24 hr 02/09/24 09:41 02/09/24 09:56 02/09/24 10:38 Temperature 36.0 C L Temperature Source Temporal Artery Scan Pulse Rate 71 67 Pulse Rate [Apical] Respiratory Rate 22 Blood Pressure 116/66 Blood Pressure [Right Arm] Blood Pressure Mean 82 Blood Pressure Mean [Right Arm] Pulse Oximetry 97 95 Oxygen Delivery Method Room Air Room Air Sepsis Recent Fever Within 48 Hours No Sepsis New/Unexplained Change in Mental Status N/A Sepsis Action Taken by Nursing No Action Required 02/09/24 11:06 Temperature Temperature Source Pulse Rate Pulse Rate [Apical] 66 Respiratory Rate 14 Blood Pressure Blood Pressure [Right Arm] 122/59 L Blood Pressure Mean Blood Pressure Mean [Right Arm] 80 Pulse Oximetry 95 Oxygen Delivery Method Room Air Sepsis Recent Fever Within 48 Hours Sepsis New/Unexplained Change in Mental Status Sepsis Action Taken by Nursing Laboratory Data 02/09/24 10:00 02/09/24 10:00 Lab Results 02/09/24 Range/Units 10:00 WBC 59.73 H* (4.8-10.8) K/ul RBC 2.95 L (4.70-6.10) M/uL Hgb 9.0 L (14.0-18.0) g/dl Hct 29.5 L (42.0-52.0) % MCV 100.0 (80.0-100.0) fL MCH 30.5 (25.0-34.0) pg MCHC 30.5 L (32.0-36.0) g/dL RDW Std Deviation 57.1 H (36.4-46.3) fL RDW Coeff of Lindsey 16.2 H (11.5-14.5) % Plt Count 194 (130-400) K/uL MPV 11.3 (9.4-12.4) fL Immature Gran % (Auto) 0.2 % Neut % (Auto) 8.6 % Lymph % (Auto) 90.7 % Briscoe % (Auto) 0.3 % Eos % (Auto) 0.1 % Baso % (Auto) 0.1 % Neut # (Auto) 5.17 (1.40-6.50) K/uL Lymph # (Auto) 54.16 H (1.20-3.40) K/uL Briscoe # (Auto) 0.17 (0.11-0.59) K/uL Eos # (Auto) 0.05 (0.00-0.50) K/uL Baso # (Auto) 0.06 (0.00-0.20) K/uL Immature Gran # (Auto) 0.12 (0.01-0.20) K/uL Absolute Nucleated RBC 0.04 (0.00-0.12) K/uL Nucleated RBC % (auto) 0.1 % Smudge Cells Present Polychromasia 1+ Anisocytosis Present Sodium 138 (136-145) mmol/L Potassium 4.0 (3.5-5.1) mmol/L Chloride 100 (98-107) mmol/L Carbon Dioxide 29 (21-32) mmol/L Anion Gap 9 (3-11) BUN 18 (6-23) mg/dl Creatinine 0.85 (0.6-1.4) mg/dl Est Cr Clr Drug Dosing 106.5 ml/min Est GFR ( Amer) 103.8 ml/min Est GFR (Non-Af Amer) 89.5 ml/min BUN/Creatinine Ratio 21.2 H (10-20) Glucose 205 H (70-99(Fasting)) mg/dl Calcium 8.4 L (8.6-10.3) mg/dl Total Bilirubin 1.0 (0.2-1.0) mg/dl AST 44 H (13-39) U/L ALT 88 H (7-52) U/L Alkaline Phosphatase 89 (34-104) U/L Troponin I High Sens 30.6 H (0-20) pg/ml B-Natriuretic Peptide 499 H (0-100) pg/ml Total Protein 6.2 (6.0-8.3) gm/dl Albumin 3.8 (3.4-5.0) gm/dl Globulin 2.4 L (2.5-4.0) gm/dl Albumin/Globulin Ratio 1.6 (0.9-2) Lipase 32 (11-82) U/L Administered Medications Discontinued Medications Furosemide (Furosemide Inj 20 Mg/2 Ml Vial) 20 mg IV NOW STA Stop: 02/09/24 11:42 Last Admin: 02/09/24 11:54 Dose: 20 mg Documented By: DAMINA Imaging Data Radiologist's Impression: Chest X-Ray 02/09/24 09:53 XR chest 1V portable HISTORY: Chest pain, nonspecific COMPARISON: Chest 06/28/2021. FINDINGS: No pneumothorax. The heart remains enlarged. There are poststernotomy changes and thoracolumbar fusion hardware again noted. Mild congestive change. Small to moderate right and small left pleural effusions with bibasilar densities. Postoperative changes within the left shoulder. IMPRESSION: 1. Cardiomegaly with mild pulmonary vascular congestion. 2. Small to moderate right and small left pleural effusions with bibasilar densities. This may represent a pneumonia. ACT 112: Negative or not required by law. Electronically signed by: Kleber Wick M.D. 02/09/2024 10:22 AM Discharge Plan Visit Data Chief Complaint: Referred by Doctor Stated Complaint: TROBLE BREATHING, FLUID RETENTION AFTER SURGERY ED Provider: Zach Pandya Discharge Problem: CHF (congestive heart failure), CLL (chronic lymphocytic leukemia), Leukocytosis, Anemia, Shortness of breath Patient Disposition: Admitted As Inpatient Discharge Instructions Interventions: ED Discharge Assessment Last Done: 02/09/24 12:38 Discharge Problem: CHF (congestive heart failure) Qualifiers: Heart failure type: unspecified Heart failure chronicity: unspecified Qualified Code(s): I50.9 - Heart failure, unspecified Leukocytosis Qualifiers: Leukocytosis type: unspecified Qualified Code(s): D72.829 - Elevated white blood cell count, unspecified Anemia Qualifiers: Anemia type: unspecified type Qualified Code(s): D64.9 - Anemia, unspecified
--- NOTE | 2024-02-09 10:24 | XRay Report ---
XR chest 1V portable HISTORY: Chest pain, nonspecific COMPARISON: Chest 06/28/2021. FINDINGS: No pneumothorax. The heart remains enlarged. There are poststernotomy changes and thoracolu mbar fusion hardware again noted. Mild congestive change. Small to moderate right and small left pleu ral effusions with bibasilar densities. Postoperative changes within the left shoulder. IMPRESSION: 1. Cardiomegaly with mild pulmonary vascular congestion. 2. Small to moderate right and small left pleural effusions with bibasilar densities. This may repres ent a pneumonia. ACT 112: Negative or not required by law. Electronically signed by: Kleber Wick M.D. 02/09/2024 10:22 AM
[2024-02-09 10:42] LABS: Albumin Globulin Ratio 1.6 (0.9-2); Albumin Level 3.8 gm/dl (3.4-5.0); BUN Creatinine Ratio 21.2 (10-20); Calcium 8.4 mg/dl (8.6-10.3); Creatinine Clr Calc Pharmacy 106.5 ml/min; Est GFR (African American) 103.8 ml/min; Est GFR (Non-African American) 89.5 ml/min; Globulin 2.4 gm/dl (2.5-4.0); Total Protein 6.2 gm/dl (6.0-8.3)
[2024-02-09 10:43] LABS: Hematocrit (blood only) 29.5 % (42.0-52.0); Mean Corpuscular Hemoglobin 30.5 pg (25.0-34.0); Mean Corpuscular Hgb Conc 30.5 g/dL (32.0-36.0); Mean Platelet Volume 11.3 fL (9.4-12.4); Nucleated RBC # (auto) 0.04 K/uL (0.00-0.12); Nucleated RBC % (auto) 0.1 %; Platelet Count 194 K/uL (130-400); RDW Coefficient of Variation 16.2 % (11.5-14.5); RDW Standard Deviation 57.1 fL (36.4-46.3); Red Blood Count 2.95 M/uL (4.70-6.10); White Blood Count 59.73 K/ul (4.8-10.8)
[2024-02-09 10:48] LABS: Troponin I High Sensitivity 30.6 pg/ml (0-20)
[2024-02-09 11:07] LABS: Anisocytosis Present; Basophils # (auto) 0.06 K/uL (0.00-0.20); Basophils % (auto) 0.1 %; Eosinophils # (auto) 0.05 K/uL (0.00-0.50); Eosinophils % (auto) 0.1 %; Immature Granulocytes # (auto) 0.12 K/uL (0.01-0.20); Immature Granulocytes % (auto) 0.2 %; Lymphocytes # (auto) 54.16 K/uL (1.20-3.40); Lymphocytes % (auto) 90.7 %; Monocytes # (auto) 0.17 K/uL (0.11-0.59); Monocytes % (auto) 0.3 %; Neutrophils # (auto) 5.17 K/uL (1.40-6.50); Neutrophils % (auto) 8.6 %; Polychromasia 1+; Smudge Cells Present
[2024-02-09] MEDS: FUROSEMIDE INJ 20 MG/2 ML VIAL IV STA (11:54)
--- NOTE | 2024-02-09 11:59 | History & Physical Report ---
Date of Service February 09, 2024 Assessment & Plan (1) Acute heart failure with preserved ejection fraction (HFpEF): Plan: This is a 68 y/o male with CAD s/p recent CABG, aortic stenosis s/p recent AVR, CLL, DM2, ALIE (not using CPAP), dyslipidemia, and other history as outlined who presents to the ED today with progressive LE edema and worsening dyspnea on exertion since being discharged after recent CABGx4/AVR. Weight is up 10-12 lbs from recent discharge. BNP elevated at 499, initial trop 30.6, repeat 28.2. Echo done in the ED showed pericardial effusion but no tamponade, preserved EF. - Admit to PCU - Given IV furosemide 20 mg in the ED, took 80 mg po this morning - defer diuretic dosing to cardiology - Consult cardiology for additional recommendations - Daily weights, monitor Is and Os - Repeat EKG in the AM - Labs in the AM including CBC, BMP, Mg (2) Diabetes mellitus type 2 in obese: Plan: Chronic, stable Insulin sliding scale, holding Metformin, repaglinide Diabetic diet BSG ACHS (3) Obstructive sleep apnea: Plan: Not currently on CPAP and denies need for retrial of this at this time (4) CLL (chronic lymphocytic leukemia): Plan: Chronic, stable Follows with oncology Q4 months - monitoring clinically, labs stable (5) GERD (gastroesophageal reflux disease): Plan: Chronic, stable Continue once daily PPI (6) BPH (benign prostatic hyperplasia): Plan: Chronic, stable Continue tamsulosin (7) Dyslipidemia: Plan: Chronic, stable Continue statin therapy Plan Pt seen and reviewed with collaborating physician, Dr. Morejon. Plan of care discussed and as outlined above. Code Status: Full code DVT Prophylaxis: Ghassan Johnson PA-C History of Present Illness Chief Complaint: trouble breathing and swollen legs Primary Care Provider: Winston Luna MD This is a 68 y/o male with CAD s/p recent CABG, aortic stenosis s/p recent AVR, CLL, DM2, ALIE (not using CPAP), dyslipidemia, and other history as outlined who presents to the ED today with progressive LE edema and worsening dyspnea on exertion since being discharged after recent surgery. Pt recently underwent CABG x 4 and AVR on 01/29/24. His post-operative course was significant for developed of atrial fibrillation with RVR on 01/30, treated with amiodarone gtt and addition of amiodarone 400 mg TID with no recurrence. He was discharged home on 02/01. Since discharge, he has noted gradual onset of LE edema that is worsening, even with diuretics being increased to BID. He also notes shortness of breath with lying flat or with exertion although not at rest, >10 lb weight gain since discharge last week. His diuretics were titrated up over the last few days with increase of furosemide to 80 mg in the AM and 40 mg in the PM starting yesterday, but this has not helped dramatically. He did take the 80 mg of furosemide this morning. He called CT surgery today due to his symptoms and they recommended pt be evaluated in the ED. Pt denies issues with edema or fluid retention before his surgery. No documented fevers, chills, sweats, N/V. Appetite is good. No difficulty with moving bowels or urination. His incisional pain is gradually improving but is not completely resolved. Over the last 24 hours, he has noted difficulty taking a deep breath and notes that his values on the incentive spirometer have actually worsened today. He denies cough other than an episode of coughing yesterday when he was eating broccoli. He has noted lightheadedness but denies syncope. Allergies Allergy/AdvReac Type Severity Reaction Status Date / Time amoxicillin AdvReac Gastrointestinal Verified 02/09/24 11:49 Upset Home Medications Medication Instructions Recorded Confirmed Type metformin 1,000 mg tablet 1,000 mg PO BID 12/26/20 02/09/24 History multivitamin 1 tab PO QAM 12/26/20 02/09/24 History dapagliflozin propanediol 10 mg 10 mg PO QAM 01/15/24 02/09/24 History tablet fluticasone propionate 50 2 spray intranasal DAILY 01/15/24 02/09/24 History mcg/actuation nasal spray,suspension omeprazole 20 mg tablet,delayed 20 mg PO DAILY 01/15/24 02/09/24 History release rosuvastatin 20 mg tablet 20 mg PO HS 01/15/24 02/09/24 History semaglutide 2 mg/dose (8 mg/3 mL) 1 mg subcut WK 01/15/24 02/09/24 History subcutaneous pen injector (Ozempic) amiodarone 200 mg tablet See Rx Instructions .Route .COMPLEX 02/09/24 02/09/24 History aspirin 81 mg tablet,delayed 81 mg PO QAM 02/09/24 02/09/24 History release furosemide 40 mg tablet See Rx Instructions .Route .COMPLEX 02/09/24 02/09/24 History metoprolol succinate 25 mg 25 mg PO QAM 02/09/24 02/09/24 History tablet,extended release 24 hr oxycodone 5 mg tablet 5 mg PO Q4H PRN Severe Pain (Scale 02/09/24 02/09/24 History Score 7-10) potassium chloride 10 mEq 10 meq PO BID 02/09/24 02/09/24 History tablet,extended release repaglinide 2 mg tablet 4 mg PO HS 02/09/24 02/09/24 History tamsulosin 0.4 mg capsule 0.4 mg PO DAILY 02/09/24 02/09/24 History Past Med/Surg History Problem List (Updated 02/09/24 @ 18:29 by Yobany Ellington DO) Pericardial effusion Acute heart failure with preserved ejection fraction (HFpEF) Shortness of breath (Acute) Anemia (Acute) Leukocytosis (Acute) CHF (congestive heart failure) (Acute) GERD (gastroesophageal reflux disease) BPH (benign prostatic hyperplasia) Dyslipidemia Transaminitis CLL (chronic lymphocytic leukemia) (Acute) Obstructive sleep apnea not using CPAP Diabetes mellitus type 2 in obese (08/01/12) Medical History History of vertebral fracture Aortic stenosis CAD (coronary artery disease) Melanoma in situ of left shoulder Pneumonia due to COVID-19 virus CLL (chronic lymphocytic leukemia) Left knee DJD Postlaminectomy syndrome, cervical (08/01/12) Surgical History History of arthroscopic surgery of shoulder History of total left knee replacement History of lumbar fusion History of inguinal hernia repair History of umbilical hernia repair S/P AVR (aortic valve replacement) S/P CABG x 4 S/P cervical spinal fusion (08/01/12) Family History Father Cancer Daughter Diabetes Other Heart disease Social History Smoking Status: Never smoker Tobacco Type: Smokeless Tobacco (Dip or Chew) Hx Alcohol Use: No Hx Substance Use: No Preferred Language: [place] Communication Ability: Effective Clamp Remover Required: No Beliefs That Will Affect Care: None Current Living Situation: Spouse Other Information That Helps Us Care for You: No Feels Safe at Home: Yes Safety Concerns: Feels Safe At This Time Assistive Devices: None Review of Systems Review of Systems: All systems reviewed & are unremarkable except as noted in HPI & below Constitutional: + fatigue; no fever and no chills Eyes: no diplopia Ear, Nose, Mouth, Throat: no nasal congestion, no nasal discharge and no sore throat Respiratory: + dyspnea on exertion; no cough and no w heezing Cardiovascular: as per Subjective / HPI Gastrointestinal: no abdominal pain, no nausea, no vomiting, no diarrhea/loose stools and no blood in stools Genitourinary: + urinary frequency; no dysuria or no he maturia Musculoskeletal: right posterior shoulder pain since CABG - using Aspercreme Integumentary: no rash and no yellowing of the skin Neurologic: + dizziness; no headache(s) and no confu jere Psychiatric: no depression and no anxiety Physical Exam Physical Exam: General: awake, alert, NAD HEENT: no scleral icterus, moist oral mucosa Neck: trachea midline Heart: regular Lungs: diminished BS at bases Abdomen: soft, obese, +BS, NT Extremities: 2-3+ pitting edema bilateral LE to just above knees, areas of ecchymosis noted Skin: no jaundice Neurologic: moving all extremities, Ox3, no confusion or dysarthria Results & Data Results & Data Vital Signs (Past 12 Hours) Vital Signs Temp Pulse Pulse Resp BP BP Pulse Ox 02/09/24 11:06 66 14 122/59 L 95 02/09/24 10:38 67 02/09/24 09:56 95 02/09/24 09:41 36.0 C L 71 22 116/66 97 O2 Del Method 02/09/24 11:06 Room Air 02/09/24 10:38 02/09/24 09:56 Room Air 02/09/24 09:41 Room Air Laboratory Results 02/09/24 10:00 WBC 59.73 H* RBC 2.95 L Hgb 9.0 L Hct 29.5 L MCV 100.0 MCH 30.5 MCHC 30.5 L RDW Std Deviation 57.1 H RDW Coeff of Lindsey 16.2 H Plt Count 194 MPV 11.3 Immature Gran % (Auto) 0.2 Neut % (Auto) 8.6 Lymph % (Auto) 90.7 [place] % (Auto) 0.3 Eos % (Auto) 0.1 Baso % (Auto) 0.1 Neut # (Auto) 5.17 Lymph # (Auto) 54.16 H [place] # (Auto) 0.17 Eos # (Auto) 0.05 Baso # (Auto) 0.06 Immature Gran # (Auto) 0.12 Absolute Nucleated RBC 0.04 Nucleated RBC % (auto) 0.1 Smudge Cells Present Polychromasia 1+ Anisocytosis Present Sodium 138 Potassium 4.0 Chloride 100 Carbon Dioxide 29 Anion Gap 9 BUN 18 Creatinine 0.85 Est Cr Clr Drug Dosing 106.5 Est GFR ( Amer) 103.8 Est GFR (Non-Af Amer) 89.5 BUN/Creatinine Ratio 21.2 H Glucose 205 H Calcium 8.4 L Total Bilirubin 1.0 AST 44 H ALT 88 H Alkaline Phosphatase 89 Troponin I High Sens 30.6 H B-Natriuretic Peptide 499 H Total Protein 6.2 Albumin 3.8 Globulin 2.4 L Albumin/Globulin Ratio 1.6 Lipase 32 Diagnostic Findings Chest X-Ray 02/09/24 09:53 XR chest 1V portable HISTORY: Chest pain, nonspecific COMPARISON: Chest 06/28/2021. FINDINGS: No pneumothorax. The heart remains enlarged. There are poststernotomy changes and thoracolumbar fusion hardware again noted. Mild congestive change. Small to moderate right and small left pleural effusions with bibasilar densities. Postoperative changes within the left shoulder. IMPRESSION: 1. Cardiomegaly with mild pulmonary vascular congestion. 2. Small to moderate right and small left pleural effusions with bibasilar densities. This may represent a pneumonia. ACT 112: Negative or not required by law. Electronically signed by: Kleber Wick M.D. 02/09/2024 10:22 AM Medications Administered Discontinued Medications Furosemide (Furosemide Inj 20 Mg/2 Ml Vial) 20 mg IV NOW STA Stop: 02/09/24 11:42 Last Admin: 02/09/24 11:54 Dose: 20 mg Documented By: DAMIAN Supervising Physician Co-Signing Physician Notes Attending Addendum: care coordinated with SHARIF Monica Johnson please refer to her notes for full details, I agree with her notes patient seen and examined, records reviewed by myself as well on exam, patient Seen resting in bed, sitting up, not in distress Feels tired but otherwise does not have active shortness of breath, chest pain, palpitations Around 6 PM, notified by RN that while sitting up in bed, having dinner, patient's suddenly felt dizzy, patient was becoming blurry, Expressed that he felt like he was going to pass out, was noted to have upper during the eyeballs and arms and legs appeared stiff, with some shaking, episode lasted a few seconds, patient remained awake and was able to talk during the episode VS noted and reviewed oriented x 3 , not in distress, speaks in sentences with no effort nor accessory muscle use normal rate, regular rhythm, no murmurs clear breath sounds bilaterally non distended, soft, nontender Grade 1 lower extremity edema, No erythema, warmth no neuro deficits all noted and reviewed including below ASSESSMENT AND PLAN> Volume overload Recent CABG, AVR 01/29/2024 at [facility] -Echocardiogram -Lasix per cardiology service Possible near syncope versus seizure episode -Occurred while being observed at the ER -CT head EEG Neurology consultation other diagnoses and plan of care as per SHARIF Johnson's notes Bacliio Morejon MD (5) GERD (gastroesophageal reflux disease) Esophagitis presence: esophagitis presence not specified Qualified Code(s): K21.9 - Gastro-esophageal reflux disease without esophagitis (6) BPH (benign prostatic hyperplasia) Lower urinary tract symptom presence: unspecified whether lower urinary tract symptoms present Qualified Code(s): N40.0 - Benign prostatic hyperplasia without lower urinary tract symptoms
[2024-02-09] MEDS ORDERED: DEXTROSE 50% 50 ML SYRINGE IV PRN (12:35)
[2024-02-09] MEDS ORDERED: CARBOHYDRATES FOR HYPOGLYCEMIA PO PRN (12:35)
[2024-02-09] MEDS ORDERED: GLUCOSE 40% GEL 15 GM TUBE PO PRN (12:35)
[2024-02-09] MEDS ORDERED: GLUCOSE 10 TAB/TUBE PO PRN (12:35)
[2024-02-09] MEDS ORDERED: GLUCAGON FOR INJ 1 MG VIAL SQ PRN (12:35)
--- OUTSIDE RECORDS SUMMARY | 2024-02-09 13:06 | External Medical Summary | Summary of Care ---
Author Name Unknown Organization [facility] Address [address] [place] [address] Phone [phone] Care Team Providers Care Intensive Care Unit Registered Nurse Name Role Phone Winston Luna MD Primary Care Provider [phone] Encounter Details Date Type Department Care Team (Late st Contact Info) Description 02/08/2024 Telephone Cardiothoracic Surg [facility] [address], [place] [phone] Shelbi Burroughs CRNP [address], [place] [phone] Allergies Active Allergy Reactions Criticality Noted Date Comments Amoxicillin Nausea/vomiting Medium 06/30/2018 documented as of this encounter (statuses as of 02/09/2024) Medications Medication Sig Dispensed Refills Start Date End Date Status MULTI-VITAMIN DAILY PO TABS Take by mouth . Active Blood Glucose Monitoring Suppl (ONETOUCH ULTRA SYSTEM) w/Device KITIndications:Typ e 2 diabetes mellitus with hemoglobin A1c goal of less than 8.0% (HCC) Use as directed 4 times a day as needed (blood glucose). Use up to four times a day as directed 1 Kit 12/22/2017 Active Turmeric Curcumin Oral Capsule Active Fish Oil 1000 MG Oral Capsule Take 1 Capsule by mouth in the morning. Active OneTouch Verio w/Device KitIndications:Typ e 2 diabetes mellitus with hemoglobin A1c goal of less than 8.0% (HCC) Use once daily E11.9 1 Kit 05/09/2022 Active Omeprazole 20 MG Oral Capsule Delayed Release (PriLOSEC)Indicati ons:GERD (gastroesophageal reflux disease) TAKE 1 CAPSULE BY MOUTH ONCE DAILY. MAY TAKE AN ADDITIONAL DOSE DAILY FOR PERSISTENT HEARTBURN 90 Capsule 3 07/07/2023 Active OneTouch Verio In Vitro Strip (Glucose Blood) Use once daily as directed, E11.9 100 Strip 3 09/02/2023 Active Dapagliflozin Propanediol 10 MG Oral Tablet (Farxiga)Indicatio ns:Type 2 diabetes mellitus with hemoglobin A1c goal of less than 8.0% ([facility]) Take 1 Tablet by mouth in the morning. Obtaining via PAP. 120 Tablet 2 10/08/2023 Active Ozempic (2 MG/DOSE) 8 MG/3ML Subcutaneous Solution Pen-injector (Semaglutide (2 MG/DOSE))Indicatio ns:DM type 2 causing neurological disease ([facility]) 10/22/2023 Active metFORMIN HCl 1000 MG Oral Tablet (Glucophage) TAKE 1 TABLET BY MOUTH TWICE DAILY every morning and at bedtime 180 Tablet 3 11/19/2023 Active Fluticasone Propionate 50 MCG/ACT Nasal Suspension (Flonase) Administer 2 Sprays into each nostril in the morning. 16 g 11/21/2023 Active Repaglinide 2 MG Oral Tablet (Prandin) Take 2 Tablets by mouth every night at bedtime. Active Aspirin 81 MG Oral Tablet Delayed Release Take 1 Tablet by mouth in the morning. 01/15/2024 Active oxyCODONE HCl 5 MG Oral Tablet (Oxy IR) Take 1 Tablet by mouth every 4 hours as needed for Pain, Severe. 20 Tablet 02/02/2024 Active Amiodarone HCl 200 MG Oral Tablet (Cordarone) Take 1 Tablet by mouth in the morning and 1 Tablet before bedtime. For 1 week, then 1 tablet daily until gone. 35 Tablet 02/02/2024 Active Rosuvastatin Calcium 20 MG Oral Tablet (Crestor)Indicatio ns:Dyslipidemia, goal LDL below 100 Take 1 Tablet by mouth in the morning. In the morning.. 30 Tablet 3 02/02/2024 Active Metoprolol Succinate ER 25 MG Oral Tablet Extended Release 24 Hour (toPROL XL) Take 1 Tablet by mouth in the morning. 30 Tablet 5 02/02/2024 Active Docusate Sodium 100 MG Oral Capsule (Colace) Take 1 Capsule by mouth 2 times a day as needed for Constipation. 10 Capsule 02/02/2024 Active Tamsulosin HCl 0.4 MG Oral Capsule (Flomax) Take 1 Capsule by mouth in the morning. For 2 weeks then OK to stop. 14 Capsule 02/02/2024 Active Furosemide 40 MG Oral Tablet (Lasix) Take 2 pills by mouth in the morning, and 1 pill in the afternoon 60 Tablet 02/08/2024 Active Potassium Chloride ER 10 MEQ Oral Tablet Extended Release Take 1 tablet by mouth in the morning and 1 tablet by mouth in the evening 30 Tablet 02/08/2024 Active Furosemide 40 MG Oral Tablet (Lasix) Take 1 Tablet by mouth in the morning. For 30 day then stop. 30 Tablet 02/02/2024 4 Discontinue d(Refill) Potassium Chloride ER 10 MEQ Oral Tablet Extended Release Take 1 Tablet by mouth in the morning. For 30 days then stop. 30 Tablet 02/02/2024 4 Discontinue d(Refill) documented as of this encounter (statuses as of 02/09/2024) Active Problems Problem Noted Date Diagnosed Date S/P AVR (aortic valve replacement) 02/02/2024 Coronary artery disease of n ative artery of [place] heart with stable angina pectoris 01/21/2024 Immunosuppressed status 12/03/2022 Nonrheumatic aortic valve stenosis 11/30/2022 Closed fracture of multiple ribs of left side Retroperitoneal hematoma 12/30/2020 Fall 12/27/2020 Preoperative clearance 12/27/2020 Diabetes mellitus 12/27/2020 CLL (chronic lymphocytic leukemia) 12/27/2020 Dyslipidemia, goal LDL below 70 12/27/2020 History of vertebral fracture 12/27/2020 Umbilical hernia without obstruction and without gangrene 08/08/2020 Melanoma in situ of left shoulder 03/31/2019 Type 2 diabetes mellitus wit h hemoglobin A1c goal of less than 8.0% 02/09/2016 DM type 2 causing neurological disease 6 ALIE (obstructive sleep apnea) 08/10/2013 Overview: AHI 18.0 on baseline PSG on 07/17/13 CLL (chronic lymphocytic leukemia) 09/11/2012 Impotence of organic origin 11/27/2009 Dyslipidemia, goal LDL below 100 08/17/2009 Overview: Per Lipid Taxonomy. ADVANCE DIRECTIVE INFORMATION 05/16/2006 Overview: Pt declined documented as of this encounter (statuses as of 02/09/2024) Resolved Problems Problem Noted Date Diagnosed Date Resolved Date Compression fracture of thoracic vertebra 12/30/2020 09/16/2023 ALIE (obstructive sleep apnea) 08/09/2013 08/10/2013 Overview: AHI 18.0 on 07/17/13 Lumbar vertebral fracture 08/12/2012 Elevated blood pressure, situational 03/01/2011 02/18/2017 OBESITY, BMI= 36.82 03/01/11 03/01/2011 02/18/2017 Severe obesity with body mas s index (BMI) of 35.0 to 39.9 with serious comorbidity 02/19/2010 Overview: Per Obesity Protocol, #19 ICD-10 update of inactive diagnosis UNILAT INGUINAL HERNIA - L sided 01/01/2010 05/13/2017 Type 2 diabetes mellitus wit h hemoglobin A1c goal of less than 7.0% 07/06/2009 02/09/2016 Overview: Per Diabetes Taxonomy. ICD-10 update of inactive term Mixed dyslipidemia 12/09/2008 9 Overview: Per Lipid Taxonomy. PAIN IN LIMB, RIGHT FOOT 05/22/2007 Type 2 diabetes mellitus wit h hemoglobin A1c goal of less than 7.0% 02/26/2002 07/06/2009 Overview: Per Diabetes Taxonomy. ICD-10 update of inactive term documented as of this encounter (statuses as of 02/09/2024) Immunizations Name Administration Dates Next Due COVID-19 mRNA, LNP-s, No Pre serve, 2-Dose Series (AudioEye) 03/04/2022,06/09/2021,11/14/2020,05/2021 COVID-19, MRNA-LNP, 23-24, P F, 30 MCG/0.3 mL, 12 YRS AND ABOVE, IM (PFIZER-Comirnaty) 07/21/2023 Covid-19, Mrna, Lnp-s, Pf, B ivalent, 30 Mcg, IM, 12 yrs and above (Pfizer) 06/26/2022 Pneumococcal Conjugate Vacc, 13 Valent (Prevnar) 06/30/2017 Pneumococcal Polysaccharide PPV23 (Pneumovax) 06/28/2020,07/17/2006 Seasonal Influenza, PF, 6 M & above, IM , (FluLaval or Fluzone) 05/18/2020,05/25/2019,06/15/2018,06/09 Seasonal Influenza, Quadriva lent Hd (Fluzone Hd) 07/07/2023,05/24/2022,06/09/2021 Seasonal Influenza, Quadriva lent, No Preserve, IM 06/24/2016,06/26/2015 Seasonal Influenza, Split, I IV3, With Preserve, Inj 08/05/2014,05/24/2013,06/23/2012,07/10,06/25/2010,05/29/2009,07/04/20 08,07/22/2007,07/17/2006 TDAP (age 10 and older)(Boostrix) 05/26/2015 TDAP, Age 7 and older, IM (Adacel) 08/10/2008 Zoster Vaccine Recombinant (Shingrix) 07/07/2020 ,11/03/2019 05/03/2020 documented as of this encounter Social History Tobacco Use Types Packs/Day Years Used Date Smoking Tobacco: Never Passive Smoke Exposure: Past Smokeless Tobacco: Former Snuff Quit: 02/16/2012 Comments:4 cans per wk x 30 years Alcohol Use Standard Drinks/Week Comments Yes 1 (1 standard drink = 0.6 oz pure alcohol) Occasionally, 4 beers about per week PHQ-2 Answer Date Recorded PHQ Adult Total Score 0 02/03/2024 Hunger Vital Sign Answer Date Recorded Within the past 12 months, y ou worried that your food would run out before you got the money to buy more. Never true 02/03/20 24 Within the past 12 months, t he food you bought just didn't last and you didn't have money to get more. Never true 02/03/2024 Sex and Gender Information Value Date Recorded Sex Assigned at Male 12/22/2018 4:06 PM EDT Gender Identity Male 12/22/2018 4:06 PM EDT Sexual Orientation Straight 12/22/2018 4: 06 PM EDT Job Start Date Occupation Industry Not on file Not on file Not on file documented as of this encounter Functional Status Functional Status Response Date of Assess ment Are you deaf or do you have serious difficulty h earing? No 12/27/2020 Are you blind or do you have serious difficulty seeing, even when wearing glasses? No 12/27/2020 Do you have serious difficul ty walking or climbing stairs? (5 years old or older) No 12/27/2020 Do you have difficulty dress ing or bathing? (5 years old or older) No 12/27/2020 Because of a physical, menta l, or emotional condition, do you have difficulty doing errands alone such as visiting a doctor s office or shopping? (15 years old or older) No 12/28/19 Cognitive Status Response Date of Assessm ent Because of a physical, menta l, or emotional condition, do you have serious difficulty concentrating, remembering, or making decisions? (5 years old or older) No 12/27/2020 documented as of this encounter Miscellaneous Notes * Telephone Encounter - Malka Pat RN - 02/09/2024 8:33 AM EDT Mr. Brice called in this morning. He states he feels worse today, even after doubling his lasix. Hestates his breathing is worse and he feels like he is "drowning" when he lays down and he has "gurgling" in his chest. He was only able to sleep about 1 hour last night. I advised that he needs to beseen in clinic or go to his local ED for evaluation. Him and his would [facility] location. Malka Pat RN 02/09/2024 8:35 AM * Telephone Encounter - Shelbi Burroughs CRNP - 02/08/2024 9:46 AM EDT Spoke to patient. He is feeling short of breath when walking and has LE edema. He is not short of breath at rest. He also has a chest tightness which makes him feels like he is SOB. He states he called a few days ago and his lasix was doubled to BID at that point. He does not feel that his symptomsare bad enough to go to the ER. He has an appointment with his PCP on Friday. Advised that since we already doubled his lasix and he is having symptoms still, we should see him in clinic. He was reluctant due to distance, but agreeable to an appointment Friday at 1115. Would recommend checking CXR and BMP. In the meantime, advised to take 2 lasix (80mg) in the AM, and 40 in PM. Also increase potassium totwice per day. If he is feeling better, then he can cancel the appointment Friday and see his PCP Friday as scheduled. documented in this encounter Plan of Treatment Upcoming Encounters Date Type Department Care Team (Late st Contact Info) Description 02/09/2024 11:45 AM EDT Scheduled Telephone Care Coordination and Integration [address] [place] [address] Celeste Andrew, Community Health Optical Mechanic [address] [place] [address] 02/13/2024 10:30 AM EDT Telemedicine Cardiothoracic Surg [facility] [address] [place] [address] Timur Velazquez PA-C [address] [facility] [place] [address] 02/13/2024 3:00 PM EDT Office Visit [facility] [address] [place] [phone] Winston Luna MD [address], [place] [phone] 02/26/2024 11:00 AM EDT Office Visit Pharmacy, [place] [address] [place] [address] [place] [address] [place] [address] 02/26/2024 11:20 AM EDT Office Visit Family Practice, [place] [address] [place] [phone] Winston Luna MD [address] [place] [address] 03/10/2024 1:15 PM EDT Office Visit Cardiothoracic Surg [facility] [address] [place] [address] Aravind Rust MD [address] [place] [address] 04/02/2024 10:00 AM EDT Office Visit Cardiology, [facility] [address] [place] [address] Jennifer Conner CRNP [address] [facility] [address] 05/12/2024 9:50 AM EDT Laboratory Laboratory, [place] [address] [place] [phone] [place], Laboratory [address] [place] [address] 05/19/2024 10:30 AM EDT Office Visit Hematology/Oncology [facility] [place] [address] [place] [phone] Estrella Bull MD [address] [place] [address] 07/23/2024 1:00 PM EST Office Visit Dermatology [place] [address] [facility] [place] [address] Tay Alejandra MD [address] [facility] [place] [address] Scheduled Orders Name Type Priority Associated Diagnoses Orde r Schedule XR CHEST 2 VIEWS Medical Imaging Routine S/P CABG (coronary artery bypass graft) LAYNE (dyspnea on exertion) Ordered: 02/08/2024 BASIC METABOLIC PANEL Lab Routine S/P CABG (coronary artery bypass graft) LAYNE (dyspnea on exertion) Expected: 02/08/2024, Expires: 02/07/2025 Scheduled Procedures Name Priority Associated Diagnoses Date/Ti me COLONOSCOPY FLEXIBLE PROXIMAL DIAGNOSTIC Recall History of colon polyps Health Maintenance Due Date Last Done Comments Cologuard 2000 Fecal Occult Blood Test 2000 Sigmoidoscopy 2000 COVID-19 Vaccine ( season) 2023 07/21/2023, 06/26/2022, 03/04/2022, Additional history exists Diabetic Eye Exam 01/30/2024 01/29/2023, , 12/04/2021, Additional history exists Diabetic Foot Exam 04/25/2024 04/25/2023, 0 03/29/2022, 01/08/2021, Additional history exists Albumin/Creatinine Ratio 05/13/2024 023, 04/17/2022, 09/26/2020, Additional history exists HbA1c 07/28/2024 01/26/2024, 11/06, 08/25/2023, Additional history exists B-12 08/25/2024 08/25/2023, 04/08, 08/21/2021, Additional history exists GFR 02/01/2025 02/02/2024, 01/07, 01/31/2024, Additional history exists Depression Screening 02/02/2025 02/03/2024 DTaP,Tdap,and Td Vaccines (3 - Td or Tdap) 05/26/2025 05/26/2015, 08/10/2008 Colonoscopy 09/27/2025 09/27/2022, 09/09, 01/29/2019, Additional history exists Colorectal Cancer Screening 09/27/2025 Pneumococcal Vaccine: 65+ Years Completed 06/28/2020, 06/30/2017, 07/17/2006 Zoster Vaccines Completed 07/07/2020, 11/03/2019 Influenza Vaccine (FLU shot) Completed , 05/24/2022, 06/09/2021, Additional history exists GARDASIL-HPV IMMUNIZATION SERIES Aged Out No longer eligible based on patient's age to complete this topic Hepatitis B Aged Out No longer eligi ble based on patient's age to complete this topic MENINGOCOCCAL (MENACTRA/MENVEO) Aged Out No longer eligible based on patient's age to complete this topic documented as of this encounter Medical Devices Implanted Type Area Laboratory Specialist Device Identifier Shelf Expiration Date Model / Serial / Lot Mesh Plug Prefix Lg [id number] - [id number] Implanted:Qty: 1 on 06/17/2016 by Nehemiah Guevara DO at OR [facility] Left: Groin CR BARD : DAVOL 04/07/2019 [id number] / / [id number] Prime Fenestrated Screw Implanted:Qty: 4 on 12/28/2020 by Nehemiah Neal III, MD at [place] [facility] N/A: Back 12/28/2021 [id number] / / Prime Fenestrrated Screw Implanted:Qty: 6 on 12/28/2020 by Nehemiah Neal III, MD at [place] [facility] N/A: Back 12/28/2021 [id number] / / Description:VIPER PRIME X TA B 7 X 50 MM TI Screw Set Sn Inner [id number] - [id number] Implanted:Qty: 10 on 12/28/2020 by Nehemiah Nael III, MD at [place] [facility] N/A: Back JNJ : [employer] 12/28/2021 [id number] / / Roxi Implanted:Qty: 2 on 12/28/2020 by Nehemiah Neal III, MD at [place] [facility] N/A: Back 12/28/2021 1967-89- / / Description:VIPER2 STRAIGHT ROXI 20 MM COCR Patch Hernia Ventralex l - [id number] Implanted:Qty: 1 on 01/14/2023 by Kashif Deal MD at OR [facility] N/A: Abdomen CR BARD : DAVOL 07/05/2024 [id number] / / [id number] Suture Steel 6 B&S19 M654g - [id number] Implanted:Qty: 7 on 01/29/2024 by Aravind Rust MD at [place] [facility] N/A: Sternum JNJ : [employer] 07/08/2028 M654G / / TMMESU Marker Coronary - [id number] Implanted:Qty: 1 on 01/29/2024 by Aravind Rust MD at [place] [facility] N/A: Aorta [employer] 01/05/2027 AM-[facility] / / [id number] Valve Inspiris Resilia 25mm - [id number] - [id number] Implanted:Qty: 1 on 01/29/2024 by Aravind Rust MD at [place] [facility] N/A: Heart [employer] SADIE [id number] 07/13/2027 [id number] / [id number] / [id number] documented as of this encounter Visit Diagnoses Diagnosis S/P CABG (coronary artery bypass graft)- Primary Postsurgical aortocoronary bypass status LAYNE (dyspnea on exertion) Other dyspnea and respiratory abnormality documented in this encounter Advance Directives * Full Code (Latest Code Status on File) Date Activated Date Inactivated Comments 01/29/2024 1:07 PM 02/02/2024 3:01 PM This order r eflects the patients wishes and were consensually agreed upon. Question Answer Comments Discussion of Advance Directives occurred with: Patient * Full Code Date Activated Date Inactivated Comments 01/14/2023 7:30 AM 01/14/2023 2:06 PM This order ref lects the patients wishes and were consensually agreed upon. Question Answer Comments Discussion of Advance Directives occurred with: Patient * Full Code Date Activated Date Inactivated Comments 12/27/2020 12:48 AM 12/30/2020 10:25 PM Question Answer Comments Discussion of Advance Directives occurred with: Not Discussed Does the patient have a Living Will? No Does the patient have Health Care Power of Attor coral? No * Full Code Date Activated Date Inactivated Comments 08/01/2012 8:30 PM 08/05/2012 10:51 PM This orde r reflects the patients wishes and were consensually agreed upon. Question Answer Comments Discussion of Advance Directives occurred with: Not Discussed Care Teams Intensive Care Unit Registered Nurse Relationship Specialty Start Date End Date Winston Luna MD [address] [place] [address] PCP - General 07/08/1999 documented as of this encounter
--- OUTSIDE RECORDS SUMMARY | 2024-02-09 13:06 | External Medical Summary | Summary of Care ---
Author Name Unknown Organization [facility] Address [address] [place] [address] Phone [phone] Care Team Providers Care Laminating Machine Offbearer Name Role Phone Winston Luna MD Primary Care Provider [phone] Encounter Details Date Type Department Care Team (Late st Contact Info) Description 02/08/2024 Telephone Cardiothoracic Surg [facility] [address], [place] [phone] Shelbi Burroughs CRNP [address] [place], [place] [phone] Allergies Active Allergy Reactions Criticality Noted Date Comments Amoxicillin Nausea/vomiting Medium 06/30/2018 documented as of this encounter (statuses as of 02/08/2024) Medications Medication Sig Dispensed Refills Start Date [...] hemoglobin A1c goal of less than 8.0% ([facility]) Take 1 Tablet by mouth in the morning. Obtaining via PAP. 120 Tablet 2 10/08/2023 Active Ozempic (2 MG/DOSE) 8 MG/3ML Subcutaneous Solution Pen-injector (Semaglutide (2 MG/DOSE))Indicatio ns:DM type 2 causing neurological disease ([facility]) 10/22/2023 Active metFORMIN HCl 1000 MG Oral [...] as of this encounter (statuses as of 02/08/2024) Active Problems Problem Noted Date Diagnosed Date S/P AVR (aortic valve replacement) 02/02/2024 Coronary artery disease of n ative artery of [place] heart with stable angina pectoris 01/21/2024 Immunosuppressed [...] as of this encounter (statuses as of 02/08/2024) Resolved Problems Problem Noted Date Diagnosed Date [...] as of this encounter (statuses as of 02/08/2024) Immunizations Name Administration Dates Next Due COVID-19 mRNA, LNP-s, No Pre serve, 2-Dose Series ([employer]) 03/04/2022,06/09/2021,11/14/2020,05/2021 COVID-19, MRNA-LNP, 23-24, P F, 30 [...] encounter Miscellaneous Notes * Telephone Encounter - Shelbi Burroughs CRNP [...] Telephone Care Coordination and Integration [address] [place] [address] Celeste Andrew, Community Health Pedigree Tracer [address] [place] [address] 02/13/2024 10:30 AM EDT Telemedicine Cardiothoracic Surg [facility] [address] [place] [address] Timur Velazquez PA-C [address] [facility] [place] [address] 02/13/2024 3:00 PM EDT Office Visit [address] [phone] Winston Luna MD [address] [place], [place] [phone] 02/26/2024 11:00 AM EDT Office Visit [place] [address] [place] [address] [facility] [address] [place] [address] 02/26/2024 11:20 AM EDT Office Visit [address] [phone] Winston Luna MD [address] [place] [address] 03/10/2024 1:15 PM EDT Office Visit Cardiothoracic Surg [facility] [place] [address] [place] [address] Aravind Rust MD [address] [place] [address] 04/02/2024 10:00 AM EDT Office Visit Cardiology, [facility] [address] [place] [address] Jennifer Conner CRNP [address] [facility] [place] [address] 05/12/2024 9:50 AM EDT Laboratory Laboratory, [address] [phone] [place] [address] [place] [address] 05/19/2024 10:30 AM EDT Office Visit Hematology/Oncology [facility] [address] [place] [phone] Estrella Bull MD [address] [place] [address] 07/23/2024 1:00 PM EST Office Visit Dermatology [facility] [address] [place] [address] Tay Alejandra MD [address] [place] [address] Scheduled Orders Name Type Priority Associated Diagnoses [...] this encounter Medical Devices Implanted Type Area Hyperbaric Welder Diver Device Identifier Shelf Expiration Date Model / Serial / Lot Mesh Plug Prefix Lg [id number] - [id number] Implanted:Qty: 1 on 06/17/2016 by Nehemiah Guevara DO at OR [facility] Left: Groin CR BARD : DAVOL 04/07/2019 [id number] / / [id number] Prime Fenestrated Screw Implanted:Qty: 4 on 12/28/2020 by Nehemiah Neal III, MD at [place] [facility] N/A: Back 12/28/[id number] / / Prime Fenestrrated Screw Implanted:Qty: 6 on 12/28/2020 by Nehemiah Neal III, MD at [place] [facility] N/A: Back 12/28/[id number] / / Description:VIPER PRIME X TA B 7 X 50 MM TI Screw Set Sng Inner [id number] - [id number] Implanted:Qty: 10 on 12/28/2020 by Nehemiah Neal III, MD at [place] [facility] N/A: Back JNJ : [employer] 12/28/2021 [id number] / / Roxi Implanted:Qty: 2 on 12/28/2020 by Nehemiah Neal III, MD at [place] [facility] N/A: Back 12/28/2021 [id number] / / Description:VIPER2 STRAIGHT ROXI 20 MM COCR Patch Hernia Ventralex [facility] - [id number] Implanted:Qty: 1 on 01/14/2023 by Kashif Deal MD at OR [facility] N/A: Abdomen CR BARD : DAVOL 07/05/2024 [id number] / / [id number] Suture Steel 6 B&S19 M654g - [id number] Implanted:Qty: 7 on 01/29/2024 by Aravind Rust MD at [place] [facility] N/A: Sternum JNJ : [employer] 07/08/2028 M654G / / TMMESU Marker Coronary - [id number] Implanted:Qty: 1 on 01/29/2024 by Aravind Rust MD at [place] [facility] N/A: Aorta [employer] 01/05/2027 [facility] / / [id number] Valve Inspiris Resilia 25mm - [id number] - [id number] Implanted:Qty: 1 on 01/29/2024 by Aravind Rust MD at [place] [facility] N/A: Heart [employer] [id number] 07/13/2027 [id number] / [id number] / [id number] documented as of this encounter Visit Diagnoses [...] Directives occurred with: Not Discussed Care Teams Laminating Machine Offbearer Relationship Specialty Start Date End Date Winston Luna MD [address] [place] [address] PCP - General 07/08/1999 documented as of this encounter
--- OUTSIDE RECORDS SUMMARY | 2024-02-09 13:07 | External Medical Summary | Summary of Care ---
Author Name Unknown Organization [facility] Address [address] [place] [address] Phone [phone] Care Team Providers Care Air Defence Officer Name Role Phone Winston Luna MD Primary Care Provider Reason for Visit * Reason Onset Date Comments Edema 02/06/2024 Encounter Details Date Type Department Care Team (Late st Contact Info) Description 02/06/2024 Telephone [facility] [address] [place] [address] Winston Luna MD [address] [place] [address] Edema Allergies Active Allergy Reactions Criticality Noted Date Comments Amoxicillin Nausea/vomiting Medium 06/30/2018 documented as of this encounter (statuses as of 02/06/2024) Medications Medication Sig Dispensed Refills Start Date End Date Status MULTI-VITAMIN DAILY PO TABS Take by mouth . Active Blood Glucose Monitoring Suppl (GoYoDeo ULTRA SYSTEM) w/Device KITIndications:Type 2 diabetes mellitus with hemoglobin A1c goal of less than 8.0% ([facility]) Use as directed 4 times a day as needed (blood glucose). Use up to four times a day as directed 1 Kit 12/22/2017 Active Turmeric Curcumin Oral Capsule Active Fish Oil 1000 MG Oral Capsule Take 1 Capsule by mouth in the morning. Active OneTouch Verio w/Device KitIndications:Type 2 diabetes mellitus with hemoglobin A1c goal of less than 8.0% ([facility]) Use once daily E11.9 1 Kit 05/09/2022 Active Omeprazole 20 MG Oral Capsule Delayed Release (PriLOSEC)Indication s:GERD (gastroesophageal reflux disease) TAKE 1 CAPSULE BY MOUTH ONCE DAILY. MAY TAKE AN ADDITIONAL DOSE DAILY FOR PERSISTENT HEARTBURN 90 Capsule 3 07/07/2023 Active OneTouch Verio In Vitro Strip (Glucose Blood) Use once daily as directed, E11.9 100 Strip 3 09/02/2023 Active Dapagliflozin Propanediol 10 MG Oral Tablet (Farxiga)Indications :Type 2 diabetes mellitus with hemoglobin A1c goal of less than 8.0% ([facility]) Take 1 Tablet by mouth in the morning. Obtaining via PAP. 120 Tablet 2 10/08/2023 Active Ozempic (2 MG/DOSE) 8 MG/3ML Subcutaneous Solution Pen-injector (Semaglutide (2 MG/DOSE))Indications :DM type 2 causing neurological disease ([facility]) 10/22/2023 Active metFORMIN HCl 1000 MG Oral [...] Active Rosuvastatin Calcium 20 MG Oral Tablet (Crestor)Indications :Dyslipidemia, goal LDL below 100 Take 1 Tablet by mouth in the morning. In the morning.. 30 Tablet 3 02/02/2024 Active Metoprolol Succinate ER 25 MG Oral Tablet Extended Release 24 Hour (toPROL XL) Take 1 Tablet by mouth in the morning. 30 Tablet 5 02/02/2024 Active Furosemide 40 MG Oral Tablet (Lasix) Take 1 Tablet by mouth in the morning. For 30 day then stop. 30 Tablet 02/02/2024 Active Docusate Sodium 100 MG Oral Capsule (Colace) Take 1 Capsule by mouth 2 times a day as needed for Constipation. 10 Capsule 02/02/2024 Active Potassium Chloride ER 10 MEQ Oral Tablet Extended Release Take 1 Tablet by mouth in the morning. For 30 days then stop. 30 Tablet 02/02/2024 Active Tamsulosin HCl 0.4 MG Oral Capsule (Flomax) Take 1 Capsule by mouth in the morning. For 2 weeks then OK to stop. 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 01/21/2024 Immunosuppressed [...] as of this encounter (statuses as of 02/06/2024) Resolved Problems Problem Noted Date Diagnosed Date [...] as of this encounter (statuses as of 02/06/2024) Immunizations Name Administration Dates Next Due COVID-19 mRNA, LNP-s, No Pre serve, 2-Dose Series (Itineris) 03/04/2022,06/09/2021,11/14/2020,0205/2021 COVID-19, MRNA-LNP, 23-24, P F, 30 MCG/0.3 mL, 12 YRS AND ABOVE, IM ([facility]) 07/21/2023 Covid-19, Mrna, Lnp-s, Pf, B ivalent, [...] (15 years old or older) No 12/28/19 21 Cognitive Status Response Date of Assessm ent Because of a physical, menta l, or emotional condition, do you have serious difficulty concentrating, remembering, or making decisions? (5 years old or older) No 12/27/2020 documented as of this encounter Progress Notes * Shivani Rowan RN - 02/06/2024 10:[address] Luna, Patient calls in with the following concerns: S/p hospitalization to [facility] on 01/28, s/p CABG x 4, discharged home on 02/02/24 S: "My lower legs from the knee down continue to be "tight", weight is at 250.2 lbs" O: Patient called the cardiothoracic provider in [place] on 02/04/24 to report increased swelling to his lower legs & weight gain Patient states he was told to take the Lasix 40 mg twice a day until he saw you next week Weight when discharged from [facility] was 238 lbs, weight today is 250.2 Patient has some occasional SOB with activity, not worse than it has been, denies angina or abdominal edema Expresses concern because he does not feel the swelling is improving & his weight continues to go up Patient says he has some swelling to his groin area Patient says he urinates a lot after taking the morning Lasix, but does not urinate as much after taking the afternoon dose A: Phone Follow Up P: Patient tried calling the cardiothoracic provider this morning, but was not able to talk to anyone Encouraged patient to limit his salt intake, keep legs elevated when sitting down Please review the information & let me know if you have any further recommendations-patient seems to be anxious to hear something today Thanks Shivani Rowan, RN, BSN, [facility] Registered Nurse Implementation Project CoordinatorLifter/DriverPeace[facility] [address] [place] [address] documented in this encounter Miscellaneous Notes * Telephone Encounter - Winston Luna MD - 02/06/2024 5:21 PM EDT Discusses with Shivani Rowan. Recommend continue Lasix 40mg BID. Keep legs elevated. Low salt diet. If worsening over weekend ie next 2 days, then recommend he proceed to [place] [facility]. documented in this encounter Plan of Treatment Upcoming Encounters Date Type Department Care Team (Late st Contact Info) Description 02/09/2024 11:45 AM EDT Scheduled Telephone Care Coordination and Integration [address] [place] [address] Celeste Andrew, Community Health Highway Maintenance Worker [address] [place] [address] 02/13/2024 10:30 AM EDT Telemedicine Cardiothoracic Surg [facility] [address] [place] [address] Timur Velazquez PA-C [address] [facility] [place] [address] 02/13/2024 3:00 PM EDT Office Visit [facility] [address] [place] [address] Winston Luna MD [address] [place] [address] 02/26/2024 11:00 AM EDT Office Visit Pharmacy, [place] [address] [place] [facility] [address] [place] [facility] [address] [place] [address] 02/26/2024 11:20 AM EDT Office Visit Family [facility], [place] [address] [place] [facility] [address] Winston Luna MD [address] [place] [address] 03/10/2024 1:15 PM EDT Office Visit Cardiothoracic Surg [facility] [address] [place] [address] Aravind Rust MD [address] [place] [address] 04/02/2024 10:00 AM EDT Office Visit Cardiology, [facility] [address] [facility] [address] Jennifer Conner CRNP [address] [facility] [place] [address] 05/12/2024 9:50 AM EDT Laboratory Laboratory, [place] [address] [place] [id number] [facility] [address] [place] [address] 05/19/2024 10:30 AM EDT Office Visit Hematology/Oncology [facility] [place] [address] [place] [id number] Estrella Bull MD [address] [place] [address] 07/23/2024 1:00 PM EST Office Visit Dermatology [facility] Malini Macdonald [address] [facility] [place] [address] Tay Alejandra MD [address] [place] [address] Scheduled Procedures Name Priority Associated Diagnoses Date/Ti [...] this encounter Medical Devices Implanted Type Area Life Sciences Director Device Identifier Shelf Expiration Date Model / Serial / Lot Mesh Plug Prefix Lg [id number] - [id number] Implanted:Qty: 1 on 06/17/2016 by Nehemiah Guevara DO at OR [facility] Left: Groin CR BARD : DAVOL 04/07/2019 [id number] / / [id number] Prime Fenestrated Screw Implanted:Qty: 4 on 12/28/2020 by Nehemiah Neal III, MD at OR [facility] N/A: Back 12/28/2021 [id number] / / Prime Fenestrrated Screw Implanted:Qty: 6 on 12/28/2020 by Nehemiah Neal III, MD at OR [facility] N/A: Back 12/28/[id number] / / Description:VIPER PRIME X TA B 7 X 50 MM TI Screw Set Sng Inner [id number] - [id number] Implanted:Qty: 10 on 12/28/2020 by Nehemiah Neal III, MD at OR [facility] N/A: Back JNJ : [employer] 12/28/2021 [id number] / / Roxi Implanted:Qty: 2 on 12/28/2020 by Nehemiah Neal III, MD at OR [facility] N/A: Back 12/28/2021 [id number] / / Description:VIPER2 STRAIGHT ROXI 20 MM COCR Patch Hernia Ventralex l - [id number] Implanted:Qty: 1 on 01/14/2023 by Kashif Deal MD at OR [facility] N/A: Abdomen CR BARD : DAVOL 07/05/2024 [id number] / / [id number] Suture Steel 6 B&S19 M654g - [id number] Implanted:Qty: 7 on 01/29/2024 by Aravind Rust MD at OR [facility] N/A: Sternum JNJ : [employer] 07/08/2028 [id number] / / [id number] Marker Coronary - [id number] Implanted:Qty: 1 on 01/29/2024 by Aravind Rust MD at OR [facility] N/A: Aorta [employer] 01/05/2027 AM-SD / / [id number] Valve Inspiris Resilia 25mm - [id number] - [id number] Implanted:Qty: 1 on 01/29/2024 by Aravind Rust MD at OR [facility] N/A: Heart [employer] [id number] 07/13/2027 [id number] / [id number] / [id number] documented as of this encounter Advance Directives * Full Code [...] Directives occurred with: Not Discussed Care Teams Air Defence Officer Relationship Specialty Start Date End Date Winston Luna MD [address] [place] [address] PCP - General 07/08/1999 documented as of this encounter
--- OUTSIDE RECORDS SUMMARY | 2024-02-09 13:07 | External Medical Summary | Summary of Care ---
Author Name Unknown Organization [facility] Address [address] [place] [address] Phone [phone] Care Team Providers Care Retail Service Specialist Name Role Phone Winston Luna MD Primary Care Provider Reason for Referral * Evaluate & Treat - Unlimited Visits (Within 30 days (routine)) - Authorized Specialty Diagnoses / Procedures Referred By Marcelle silva Referred To Contact Dietitian / Nutrition Services Diagnoses Coronary artery disease of [place] artery of [place] heart with stable angina pectoris (HCC) S/P CABG (coronary artery bypass graft) S/P AVR (aortic valve replacement) Nonrheumatic aortic valve stenosis Jacki Jnasen PA-C [address] [place] [address] Referral ID Status Reason Start Date Expiration Date Visits Requested Visits Authorized [id number] Authorized Specialty Services Required 02/01/2024 [id number] Question Answer Referral Priority Within 30 days (routine) Where should this appointment be scheduled? [facility] What condition is the patient being seen for? All other conditions Other: Other: Use Comment Box Is this for 65 Forward? No Comments Heart Surgery Discharge Order * Evaluate & Treat - Unlimited Visits (Within 30 days (routine)) - Authorized Specialty Diagnoses / Procedures Referred By Marcelle silva Referred To Contact CARDIAC REHAB / Cardiology Diagnoses Coronary artery disease of [place] artery of [place] heart with stable angina pectoris (HCC) Valvular heart disease S/P CABG (coronary artery bypass graft) S/P AVR (aortic valve replacement) Shelbi Burroughs CRNP [address] [place] [address] Referral ID Status Reason Start Date Expiration Date Visits Requested Visits Authorized [id number] Authorized Specialty Services Required 02/01/[phone] Question Answer Referral Priority Within 30 days (routine) Where should this appointment be scheduled? [facility] Comments Discharge Order Reason for Visit * Auth/Cert Specialty Diagnoses / Procedures Referred By Contac t Referred To Contact Diagnoses Nonrheumatic aortic valve stenosis Coronary artery disease of [place] artery of [place] heart with stable angina pectoris (HCC) Nonrheumatic aortic valve stenosis [I35.0] Coronary artery disease of [place] artery of [place] heart with stable angina pectoris (HCC) [I25.118] Procedures CABG, ARTERIAL, SINGLE CABG, ARTERY-VEIN, TWO ENDO,VIDEO ASSIST HARVEST OLEG REPLACEMENT AORTIC VALVE, BYPASS WITH PROSTHETIC VALVE CORONARY ARTERY BYPASS GRAFT USING ARTERY 1 GRAFT CORONARY ARTERY BYPASS GRAFT ARTERIAL AND VENOUS 2 GRAFTS ENDOSCOPY VIDEO ASSISTED HARVEST VEIN WITH REPLACEMENT AORTIC VALVE Aravind Rust MD [address] [place] [address] Or [facility] [address] [place] [address] Referral ID Status Reason Start Date Expiration Date Visits Re quested Visits Authorized [id number] Encounter Details Date Type Department Care Team (Latest Contact Info) Description 01/29/2024 5:25 AM EDT - 02/02/2024 11:01 AM EDT Hospital Encounter CICU, Cardiac Intensive Care Unit [facility] 7TH Floor [address] [place] [address] Aravind Rust MD [address] [place] [address] EKG Report Discharge Disposition: Home - Self Care Allergies Active Allergy Reactions Criticality Noted Date Comments Amoxicillin Nausea/vomiting Medium 06/30/2018 documented as of this encounter (statuses as of 02/02/2024) Medications Medication Sig Dispensed Refills Start Date End Date Status MULTI-VITAMIN DAILY PO TABS Take by mouth . Active Blood Glucose Monitoring Suppl ([employer] ULTRA SYSTEM) w/Device KITIndications:Ty pe 2 diabetes mellitus with hemoglobin A1c goal of less than 8.0% (HCC) Use as directed 4 times a day as needed (blood glucose). Use up to four times a day as directed 1 Kit 12/22/2017 Active Turmeric Curcumin Oral Capsule Active Fish Oil 1000 MG Oral Capsule Take 1 Capsule by mouth in the morning. Active OneTouch Verio w/Device KitIndications:Ty pe 2 diabetes mellitus with hemoglobin A1c goal of less than 8.0% (HCC) Use once daily E11.9 1 Kit 05/09/2022 Active Omeprazole 20 MG Oral Capsule Delayed Release (PriLOSEC)Indicat ions:GERD (gastroesophageal reflux disease) TAKE 1 CAPSULE BY MOUTH ONCE DAILY. MAY TAKE AN ADDITIONAL DOSE DAILY FOR PERSISTENT HEARTBURN 90 Capsule 3 07/07/2023 Active OneTouch Verio In Vitro Strip (Glucose Blood) Use once daily as directed, E11.9 100 Strip 3 09/02/2023 Active Dapagliflozin Propanediol 10 MG Oral Tablet (Farxiga)Indicati ons:Type 2 diabetes mellitus with hemoglobin A1c goal of less than 8.0% (HCC) Take 1 Tablet by mouth in the morning. Obtaining via PAP. 120 Tablet 2 10/08/2023 Active Ozempic (2 MG/DOSE) 8 MG/3ML Subcutaneous Solution Pen-injector (Semaglutide (2 MG/DOSE))Indicati ons:DM type 2 causing neurological disease (HCC) 10/22/2023 Active metFORMIN HCl 1000 MG Oral [...] Active Rosuvastatin Calcium 20 MG Oral Tablet (Crestor)Indicati ons:Dyslipidemia, goal LDL below 100 Take 1 Tablet [...] OK to stop. 14 Capsule 02/02/2024 Active Rosuvastatin Calcium 20 MG Oral Tablet (Crestor)Indicati ons:Dyslipidemia, goal LDL below 100 TAKE 1 TABLET BY MOUTH EVERY MORNING 90 Tablet 3 09/05/2023 02/02/20 24 Discontinued Fenofibrate 48 MG Oral Tablet (Tricor) TAKE 1 TABLET BY MOUTH EVERY MORNING 90 Tablet 09/18/2023 02/02/20 24 Discontinued Gabapentin 300 MG Oral Capsule (Neurontin)Indica tions:DM type 2 causing neurological disease (HCC) TAKE 1 CAPSULE BY MOUTH TWICE DAILY 180 Capsule 3 12/09/2023 02/02/20 24 Discontinued Mupirocin Calcium 2 % Nasal Ointment (Bactroban Nasal) Administer into nostril 2 times a day. For 5 days 1 Each 01/22/2024 02/01/20 24 Discontinued Chlorhexidine Gluconate 4 % External Liquid Use to wash in shower for 5 days leading up to surgery 120 mL 01/22/2024 02/01/20 24 Discontinued documented as of this encounter (statuses as of 02/02/2024) Active Problems Problem Noted Date Diagnosed Date S/P AVR (aortic valve replacement) 02/02/2024 Coronary artery disease of [place] artery of [place] heart with stable angina pectoris 01/21/2024 Immunosuppressed [...] as of this encounter (statuses as of 02/02/2024) Resolved Problems Problem Noted Date Diagnosed Date [...] as of this encounter (statuses as of 02/02/2024) Immunizations Name Administration Dates Next Due COVID-19 mRNA, LNP-s, No Pre serve, 2-Dose Series ([employer]) 03/04/2022,06/09/2021,11/14/2020,05/2021 COVID-19, MRNA-LNP, 23-24, P F, 30 MCG/0.3 mL, 12 YRS AND ABOVE, IM ([employer]) 07/21/2023 Covid-19, Mrna, Lnp-s, Pf, B ivalent, 30 Mcg, IM, 12 yrs and above ([employer]) 06/26/2022 Pneumococcal Conjugate Vacc, 13 Valent (Prevnar) 06/30/2017 Pneumococcal Polysaccharide PPV23 (Pneumovax) 06/28/2020,07/17/2006 Seasonal Influenza, PF, 6 M & above, IM , (FluLaval or Fluzone) 05/18/2020,05/25/2019,06/15/2018,06/09 Seasonal Influenza, Quadriva lent Hd (Fluzone Hd) 07/07/2023,05/24/2022,06/09/2021 Seasonal Influenza, Quadriva lent, No Preserve, IM 06/24/2016,06/26/2015 Seasonal Influenza, Split, I IV3, With Preserve, Inj 08/05/2014,05/24/2013,06/23/2012,07/10,06/25/2010,05/29/2009,07/04/20 08,07/22/2007,07/17/2006 TDAP (age 10 and older)(Boostrix) 05/26/2015 TDAP (age 11 and older)(Adacel) 08/10/2008 Zoster Vaccine Recombinant (Shingrix) 07/07/2020 ,11/03/2019 [...] Date Recorded PHQ Adult Total Score 0 10/16/2022 Hunger Vital Sign Answer Date Recorded Within the past 12 months, y ou worried that your food would run out before you got the money to buy more. Never true 10/16/19 23 Within the past 12 months, t he food you bought just didn't last and you didn't have money to get more. Never true 10/16/2022 Sex and Gender Information Value Date Recorded Sex Assigned at Male 12/22/2018 4:06 PM EDT Gender Identity Male 12/22/2018 4:06 PM EDT Sexual Orientation Straight 12/22/2018 4: 06 PM EDT Job Start Date Occupation Industry Not on file Not on file Not on file documented as of this encounter Last Filed Vital Signs Vital Sign Reading Time Taken Comments Blood Pressure 113/47 02/02/2024 8:00 AM EDT Pulse 67 02/02/2024 8:00 AM EDT Temperature 36.1 C (97 F) 02/02/2024 8:00 AM EDT Respiratory Rate 18 02/02/2024 8:00 AM EDT Oxygen Saturation 94% 02/02/2024 8:00 AM EDT Inhaled Oxygen Concentration - - Weight 110.2 kg (242 lb 15.2 oz) 02/02/2024 6:00 AM EDT Height 177.8 cm (5' 10") 01/30/2024 4:26 PM EDT Body Mass Index 34.86 01/30/2024 4:26 PM EDT documented in this encounter Functional Status Functional Status Response [...] No 12/27/2020 documented as of this encounter Discharge Instructions * Discharge Instr - AVS* Shelbi Burroughs CRNP - 02/01/2024 11:30 AM EDT Discharge Date: 02/02/2024 You may call of the department of Cardiothoracic Surgery at [phone] during business hours for any questions or test results. After hours emergencies: Call [phone] and have theCardiothoracic Surgery service paged. The information below provides you with the instructions and the list of medications you need to betaking following discharge from the hospital. If you have any questions, please ask before leaving.Please carry this letter with you when you see your doctor in the clinic. If you have questions, you can reach us at the numbers above. Brief summary of your inpatient care: You underwent coronary artery bypass and aortic valve replacement and tolerated this well. You did have atrial fibrillation which is common after heart surgery but converted back to sinus rhythm after several hours. You were started on Amiodarone and will continue taking this for 1 month. Your doctors during this hospitalization included: Your primary diagnosis at discharge was coronary artery disease and aortic stenosis s/p CABG x 4 and bioprosthetic aortic valve replacement. You had an irregular (but very common after open heart surgery) heart rhythm called atrial fibrillation, for which you will be on a medication (amiodarone) for 1 month. You also had some urinary retention so you will have 2 weeks of flomax to help with this Inpatient test results pending: None Operations & Procedures: CABG X 4 (JOHNSON to LAD; SVG to RAMUS, OM, LPDA), AVR with 25mm InspirisValve Complications: Atrial fibrillation Advance Directive Documented: Advance Directive Does the Patient have an Advance Directive? No Diet: Carbohydrate-controlled diet Activity: No strenuous activity for 8 weeks and No lifting or pushing or pulling more than 10 lbs for 8 weeks Driving: You may resume driving in 1 month after follow-up appointment with Dr. Rust. See your primary care physician (Winston Luna MD) in 2 weeks Follow-up with: Follow-up with cardiac surgery PA in 1 week (video visit), cardiac surgeon in 1 month, cardiology in 4-6 weeks, and your primary care doctor in 2 weeks. These appointments have been requested for you. Routine wound/surgical site care: Soap and water, open to air. If skin glue present, some will peeloff on its own- you may peel it off completely in 1 week. Continue to wash over it daily. Remove any Band-Aids or dressing and CHANGE daily if needed. Watch for signs of infections: including increased redness, swelling, drainage, opening of either your sternal incision or leg incision, fever or chills. If this occurs call the office number above immediately and a surgeon or PA will see you immediately. Wear your ABRAHAN stockings or EVELIA wraps during the day and remove at night. This helps to prevent tension on your incisions and prevents swelling. Weigh Yourself daily. You should SHOWER daily. Use soap and water on your incisions. DO NOT take tub baths. Medications: Prescriptions that are given without refills are only required for 30 days. Other Special Instructions: Home: No special instructions needed. You will receive a call from the Cardiac Rehab to schedule your Consultation. If not arranged by the time of your post-op follow-up visit, please let your surgical team know and this can be arranged. If you feel suicidal or homicidal, please call the crisis hotline at [phone] ([phone]). documented in this encounter H&P Notes * Shelbi Burroughs CRNP - 01/22/2024 8:15 AM EDT Images from the original note were not included. HISTORY AND PHYSICAL EXAMINATION - [facility] Name: Pasha Castro Jr. Date: 01/21/2024 Time:812 Pre charting done by Suman Rueda PA-C in efficiency of seeing patient and updated by Graciela Gibson PA-C REFERRING PHYSICIAN: Marvel Quiroz MD PCP: Winston Luna MD DOCTOR ASSISTANT: Marvel Quiroz MD Preference for return visit: [facility] HPI: Pasha Castro Jr. is a 68 year old male with a pmhx significant for MVCAD, Aortic stenosis, DLD, CLL, ALIE, DM2 on Ozempic who presents with CAD and moderate to severe . Patient presents now noting recent increase in symptoms of exertional chest pressure pain while walking in the [facility] during season. No fevers chills or unexplained infections. 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 Blood Glucose Monitoring Suppl (ONETOUCH ULTRA SYSTEM) w/Device KIT Use as directed 4 times a day as needed (blood glucose). Use up to four times a day as directed 1 Kit 0 Turmeric Curcumin Oral Capsule Fish Oil 1000 MG Oral Capsule Take 1 Capsule by mouth in the morning. OneTouch Verio w/Device Kit Use once daily E11.9 1 Kit 0 Omeprazole 20 MG Oral Capsule Delayed Release (PriLOSEC) TAKE 1 CAPSULE BY MOUTH ONCE DAILY. MAY TAKE AN ADDITIONAL DOSE DAILY FOR PERSISTENT HEARTBURN 90 Capsule 3 OneTouch Verio In Vitro Strip (Glucose Blood) Use once daily as directed, E11.9 100 Strip 3 Rosuvastatin Calcium 20 MG Oral Tablet (Crestor) TAKE 1 TABLET BY MOUTH EVERY MORNING 90 Tablet 3 Dapagliflozin Propanediol 10 MG Oral Tablet (Farxiga) Take 1 Tablet by mouth in the morning. Obtaining via PAP. 120 Tablet 2 Ozempic (2 MG/DOSE) 8 MG/3ML Subcutaneous Solution Pen-injector (Semaglutide (2 MG/DOSE)) metFORMIN HCl 1000 MG Oral Tablet (Glucophage) TAKE 1 TABLET BY MOUTH TWICE DAILY every morning andat bedtime 180 Tablet 3 Fluticasone Propionate 50 MCG/ACT Nasal Suspension (Flonase) Administer 2 Sprays into each nostril in the morning. 16 g 0 Fenofibrate 48 MG Oral Tablet (Tricor) TAKE 1 TABLET BY MOUTH EVERY MORNING (Patient not taking: Reported on 11/06/2023) 90 Tablet 0 Gabapentin 300 MG Oral Capsule (Neurontin) TAKE 1 CAPSULE BY MOUTH TWICE DAILY (Patient not taking:Reported on 12/15/2023) 180 Capsule 3 No current facility-administered medications for this visit. ALLERGIES: Allergies Amoxicillin PAST MEDICAL HISTORY: Past Medical History Past Medical History: Diagnosis Date CLL (chronic lymphocytic leukemia) ([facility]) 09/11/2012 DM, CONTROLLED, TYPE II 02/26/2002 Dyslipidemia, goal LDL below 100 08/17/2009 Per Lipid Taxonomy. ALIE (obstructive sleep apnea) 08/10/2013 AHI 18.0 on baseline PSG on 07/17/13 Refusal of medication 01/18 refused ACEI despite proteinuria Type 2 diabetes mellitus with hemoglobin A1c goal of less than 8.0% ([facility]) 02/09/2016 PAST SURGICAL HISTORY: Past Surgical History Past Surgical History: Procedure Laterality Date COLONOSCOPY W/ LESION REMOVAL, SNARE 12/22/2008 8 mm polyp removed- path pending COLONOSCOPY W/ LESION REMOVAL, SNARE 01/29/2019 5 sessile polyps, multiple AVMs in ascending and transverse colon, hemorrhoids COLONOSCOPY, DIAGNOSTIC (RECTUM) 12/27/2013 COLONOSCOPY FLEXIBLE PROXIMAL DIAGNOSTIC performed by Herminio Inman MD at ENDOSCOPY [facility] COLONOSCOPY, DIAGNOSTIC (RECTUM) 01/29/2019 adenomatous polyps, diverticulosis, repeat 3 yrs/COLONOSCOPY FLEXIBLE PROXIMAL DIAGNOSTIC performedby Herminio Inman MD at ENDOSCOPY [facility] COLONOSCOPY, DIAGNOSTIC (RECTUM) 09/27/2022 benign adenomatous polyps, diverticulosis, repeat 3 yrs / COLONOSCOPY FLEXIBLE PROXIMAL DIAGNOSTIC performed by Herminio Inman MD at ENDOSCOPY [facility] EGD, FLEXIBLE, DIAGNOSTIC 08/12/2023 ESOPHAGOGASTRODUODENOSCOPY (EGD), FLEXIBLE, TRANSORAL, DIAGNOSTIC performed by Nita Inman MD at ENDOSCOPY [facility] LUMBAR SPINE FUSION, POSTEROLATERAL N/A 12/28/2020 ARTHRODESIS SPINE POSTERIOR LUMBAR performed by Nehemiah Neal III, MD at [place] [facility] MISCELLANEOUS ORDER ([facility] ONLY) left 7cm labrum tear, shoulder with repair MISCELLANEOUS ORDER ([facility] ONLY) right, arthroscopic shoulder surgery NECK SPINE FUSION (CERV, BELOW C2) 1993 REPAIR INITIAL INGUINAL HERNIA REDUCIBLE AGE 5 OR MORE Left 06/17/2016 REPAIR INITIAL INGUINAL HERNIA REDUCIBLE AGE 5 OR MORE performed by Nehemiah Guevara DO at OR [facility] RPR AA HERNIA 1ST < 3 CM REDUCIBLE N/A 01/14/2023 EPIGASTRIC/UMBILICAL HERNIA REPAIR INITIAL < 3 CM REDUCIBLE performed by Kashif Deal MD at OR [facility] SPINE FUSION, EACH ADD'L VERTEBRA N/A 12/28/2020 ARTHRODESIS SPINE POSTERIOR EACH ADDITIONAL VERTEBRAE performed by Nehemiah Neal III, MD at OR [facility] Hx of vein harvest or stripping?: no SOCIAL HISTORY: Drug Use: never Social History Social History Tobacco Use Smoking status: Never Passive exposure: Past Smokeless tobacco: Former Types: Snuff Quit date: 02/16/2012 Tobacco comments: 4 cans per wk x 30 years Vaping Use Vaping Use: Never used Substance Use Topics Alcohol use: Yes Alcohol/week: 1.0 - 2.0 standard drink of alcohol Types: 1 - 2 12 oz of beer per week Comment: Occasionally, 4 beers about per week Drug use: Never FAMILY HISTORY: Family History Problem Relation Age of Onset Cancer Father bone No Past Hx Mother smoker Alcohol and Other Disorders Associated Sister cirrhosis Heart Disorder Brother murmur Diabetes Daughter better with weight loss Family History of premature CAD: no REVIEW OF SYSTEMS: Constitutional: denies weight loss, denies fever, denies shaking chills Eyes: denies double vision , denies blurred vision Ear, nose and throat: denies decreased hearing, denies trouble swallowing Dental: Poor dentition . Denies pain Cardiac: denies chest pain, denies palpitations, no claudication Respiratory: denies shortness of breath, denies dyspnea on exertion (LAYNE), denies cough, denies snoring loudly, denies feeling tired, fatigued, or sleepy during daytime Gastrointestinal: denies dysphagia, denies nausea, denies vomiting, denies abdominal pain, denies constipation, denies diarrhea Genitourinary: denies dysuria, denies nocturia, denies hematuria, denies diminished stream, denies frequency Musculoskeletal: limited neck ROM Psychiatric: denies depression, denies anxiety Skin: denies rash, denies non-healing ulcers Neurologic: denies trouble speaking, denies amaurosis fugax, denies syncope Endocrine: glucoses well controlled Hematologic / Lymphatic: CLL Immunologic: denies trouble fighting infections CARDIOTHORACIC COMPLETE PHYSICAL EXAM: Most Recent Vital Signs: BP 122/60 (BP Site: Left Arm, BP Position: Sitting, BP Cuff Size: Large) | Pulse 68 | Ht 1.746 m (5' 8.75") | Wt 108 kg (238 lb) | SpO2 96% | BMI 35.40 kg/m | BSA 2.29 m PHYSICAL EXAM: General Examination: well-developed, awake, alert, no acute cardiorespiratory distress. Chest: Clear to auscultation bilaterally. No rales. No wheezes. Cardiac Examination: PMI is not displaced, normal S-1 normal S-2. No gallops. Abdominal examination is nondistended, soft, nontender. No hepatomegaly. Extremities: No pedal edema. No clubbing. Vascular Examination: 2+ carotids bilaterally, no bruit and 2+ distal pulses bilaterally. Neurologic Examination: nonfocal. STUDIES: Cardiac Cath Data: 01/15/2024 Echocardiogram: 06/2023 Interpretation Summary The examination is adequate to evaluate the referral indication. The left ventricular cavity size is normal. The LV wall thickness is moderately increased (concentric). The left ventricular wall motion is normal. The qualitative LV ejection fraction is 60-64% (normal). The left ventricular diastolic function is mildly abnormal (grade I). There is moderate mitral annular calcification. The mitral valve leaflets thickness is moderately increased. Mitral stenosis is absent. Mild tricuspid regurgitation is present. There is no evidence of pulmonary hypertension. The aortic valve is moderately calcified. Moderate aortic valve stenosis is present. Echo 01/15/2024 Society of Thoracic Surgeons' Risk Score: STS site Procedure Type: CABG + AVR PERIOPERATIVE OUTCOME ESTIMATE % Operative Mortality 1.02% Morbidity & Mortality 6.5% Stroke 1.11% Renal Failure 1.01% Reoperation 3.13% Prolonged Ventilation 3.49% Deep Sternal Wound Infection 0.173% Long Hospital Stay (>14 days) 4.1% Short Hospital Stay (<6 days)* 53.3% IMPRESSION: 68 year old male with a pmhx significant for MVCAD, Aortic stenosis, DLD, CLL, ALIE, DM2who presents with CAD and moderate to severe . PLAN: AVR/CABG -Needs dental clearance -Recent visit with hem/onc -Neck fusion Patient seen and studies were Pasha Castro is a 68-year-old male with past medical history significant for coronary artery disease, dyslipidemia, CLL, diabetes and obstructive sleep apnea who has been followed with serial echocardiograms for aortic stenosis. He has begun to develop symptoms of accelerating angina with chest pains that initially occurred with moderate effort but now occur with minor activity. A coronary angiogram demonstrated severe multivessel coronary disease involving the left anterior descending, circumflex and right coronary artery. Echocardiogram confirms severe aortic stenosis with preserved left ventricular systolic function. We have been asked to see him in consideration for aortic valve replacement and coronary artery bypass grafting. Pasha has very symptomatic coronary disease and at least [id number] aortic stenosis. The multivessel and diffuse nature of his disease makes him a poor candidate for PCI to treat his ischemia. Despite his multiple comorbidities he is very functional and I believe would be at a reasonable operative risk. I discussed the indications for surgery with Pasha and his family. We discussed the procedure of aortic valve replacement coronary artery bypass grafting itself, its risk as estimated by the ST S, potential benefits and possible alternative therapies. He understands agreed to proceedwith surgery. We will obtain a CT scan to rule out any ascending aortic aneurysm with plans for surg nolvia in the next 2 weeks. Aravind Rust MD Cardiac Surgery [facility] documented in this encounter Procedure Notes * Jeremías Alves MD - 01/30/2024 4:02 AM EDTAssociated Order(s): EKG REASON FOR STUDY: Day one post cardiac surgery;Post-op Day #1 CONCLUSIONS: Normal sinus rhythm Nonspecific ST abnormality When compared with ECG of 23-May-2024 13:15, The axis Shifted right T wave amplitude has decreased in Inferior leads Ventricular Rate: 85 Atrial Rate: 85 MN Interval: 134 QRS Duration: 110 QT/QTc: 406/483 ms P-R-T [place]: 63 : -6 : 48 degrees * Familia Street DO - 01/29/2024 1:15 PM EDTAssociated Order(s): EKG REASON FOR STUDY: Immediately Post-op;Status post surgery CONCLUSIONS: Normal sinus rhythm Left axis deviation Prolonged QT interval or tu fusion, consider myocardial disease, electrolyte imbalance, or drug effects When compared with ECG of 07-Jan-2024 14:07, The axis Shifted left Ventricular Rate: 98 Atrial Rate: 98 MN Interval: 156 QRS Duration: 108 QT/QTc: 396/505 ms P-R-T [place]: 75 : -40 : 72 degrees documented in this encounter Consult Notes * Ana Medina, JOSE - 01/30/2024 2:51 PM EDTAssociated Order(s): CARE MANAGEMENT CONSULT IP See note in Ancillary section. CM to follow during hospital course. Thanks * Peter Kenny, STAN - 01/30/2024 12:12 PM EDTAssociated Order(s): ADULT PHYSICAL THERAPY CONSULT IP GENERAL EVALUATION - Physical Therapy [address] [address] Name: Pasha Castro Jr. [facility] [facility] H750/A Date: 01/30/2024 Time: 1212 Pasha Castro Jr. is a/an 68 year old male. Patient Status: Inpatient Insurance: Payor: MEDICARE Plan: MEDICARE A AND B Product Type: *No Product type* Payor: AARP Plan: AARP Product Type: *No Product type* Patient Seen: at bedside, nursing cleared patient for therapy Patient Identified By: Name, ID Band and Date Diagnosis: s/p CABG (01/30/241211) Status of treatment: Evaluation completed (01/30/241211) Orders: PT evaluation and treatment;OOB (01/30/241211) Weight Bearing Status: Weight bearing as tolerated (01/30/241211) Precautions: Alarms;Falls;Safety;Sternal;Chest tube;Collazo;Oxygen (01/30/241211) Total Treatment Time--free text: 14 (01/30/241211) Past Medical History: Past Medical History: Diagnosis Date BPH (benign prostatic hyperplasia) CAD (coronary artery disease) CLL (chronic lymphocytic leukemia) ([facility]) 09/11/2012 DM, CONTROLLED, TYPE II 02/26/2002 Dyslipidemia, goal LDL below 100 08/17/2009 Per Lipid Taxonomy. GERD (gastroesophageal reflux disease) OA (osteoarthritis) ALIE (obstructive sleep apnea) 08/10/2013 AHI 18.0 on baseline PSG on 07/17/13 Refusal of medication 01/06/2013 refused ACEI despite proteinuria Type 2 diabetes mellitus with hemoglobin A1c goal of less than 8.0% ([facility]) 02/09/2016 Past Surgical History: Past Surgical History: Procedure Laterality Date COLONOSCOPY W/ LESION REMOVAL, SNARE 12/22/2008 8 mm polyp removed- path pending COLONOSCOPY W/ LESION REMOVAL, SNARE 01/29/2019 5 sessile polyps, multiple AVMs in ascending and transverse colon, hemorrhoids COLONOSCOPY, DIAGNOSTIC (RECTUM) 12/27/2013 COLONOSCOPY FLEXIBLE PROXIMAL DIAGNOSTIC performed by Herminio Inman MD at [facility] COLONOSCOPY, DIAGNOSTIC (RECTUM) 01/29/2019 adenomatous polyps, diverticulosis, repeat 3 yrs/COLONOSCOPY FLEXIBLE PROXIMAL DIAGNOSTIC performedby Herminio Inman MD at [facility] COLONOSCOPY, DIAGNOSTIC (RECTUM) 09/27/2022 benign adenomatous polyps, diverticulosis, repeat 3 yrs / COLONOSCOPY FLEXIBLE PROXIMAL DIAGNOSTIC performed by Herminio Inman MD at [facility] EGD, FLEXIBLE, DIAGNOSTIC 08/12/2023 ESOPHAGOGASTRODUODENOSCOPY (EGD), FLEXIBLE, TRANSORAL, DIAGNOSTIC performed by Nita Inman MD at [facility] INFORMATION 01/15/2024 Heart Cath. INFORMATION Left L TKA. LUMBAR SPINE FUSION, POSTEROLATERAL N/A 12/28/2020 ARTHRODESIS SPINE POSTERIOR LUMBAR performed by Nehemiah Neal III, MD at [facility] MISCELLANEOUS ORDER ([facility] ONLY) left 7cm labrum tear, shoulder with repair MISCELLANEOUS ORDER ([facility] ONLY) right, arthroscopic shoulder surgery NECK SPINE FUSION (CERV, BELOW C2) 1993 REPAIR INITIAL INGUINAL HERNIA REDUCIBLE AGE 5 OR MORE Left 06/17/2016 REPAIR INITIAL INGUINAL HERNIA REDUCIBLE AGE 5 OR MORE performed by Nehemiah Guevara DO at OR [facility] RPR AA HERNIA 1ST < 3 CM REDUCIBLE N/A 01/14/2023 EPIGASTRIC/UMBILICAL HERNIA REPAIR INITIAL < 3 CM REDUCIBLE performed by Kashif Deal MD at OR [facility] SPINE FUSION, EACH ADD'L VERTEBRA N/A 12/28/2020 ARTHRODESIS SPINE POSTERIOR EACH ADDITIONAL VERTEBRAE performed by Nehemiah eNal III, MD at [facility] Subjective: Pt awake in chair, agreeable to PT. Social History/Disposition Lives with: Spouse (01/30/241211) Assistance available: Yes (01/30/241211) Dwelling type: Single story home (01/30/241211) Entry steps: 1 (01/30/241211) Inside steps: None (01/30/241211) Bedroom location: 1st floor (01/30/241211) Bath location: 1st floor full bath (01/30/241211) Prior Level of Function Reported by: Patient (01/30/241211) Ambulation: Ambulatory without device (01/30/241211) Devices at home: Rolling walker;Straight cane;Bedside commode (01/30/241211) Observations Consciousness: Alert (01/30/241211) Orientation: Oriented times 4 (01/30/241211) Psychosocial: Patient can communicate basic needs;Patient can converse in a social setting (01/30/241211) Other Findings: Yes (01/30/241211) Findings: Light touch sensation (01/30/241211) Light Touch Sensation Results: Intact;LLE;RLE (01/30/241211) Sitting Posture: Rounded shoulders (01/30/241211) Standing Posture: Rounded shoulders (01/30/241211) Pain: Patient has complaints of pain. Pain located at incision site, not rated. Range of Motion Range of Motion: WFL (01/30/241211) Strength Assessment Strength Assessment: Deficits noted (01/30/241211) WNL, except: LLE;RLE (01/30/241211) LLE: Hip;Knee;Ankle;4/5 (01/30/241211) RLE: Hip;Knee;Ankle;4/5 (01/30/241211) Transfers Sit-Stand: Contact Guard (01/30/241211) Stand-Sit: Contact Guard (01/30/241211) Ambulation: Distance ambulated (feet): 50 Assistive Device: Rolling walker Assist: Contact Guard Balance Sit (Static): Fair (01/30/241211) Sit (Dynamic): Fair (01/30/241211) Stand (Static): (Fair -) (01/30/241211) Stand (Dynamic): (Fair -) (01/30/241211) Patient and or Family Goal(s): to get well and to return home Patient Education Review of Precautions: Safety;Fall;Sternal (01/30/241211) Safety Awareness: Patient verbalizes insight of current deficits;Patient demonstrates carryover of insight during functional tasks;Patient can communicate basic needs (01/30/241211) Preferred learning method: Combination (01/30/241211) Barriers to learning: Medical Status (01/30/241211) Method of Education: Verbalized to patient;Patient demonstrated task (01/30/241211) Topic of Education: Safety with mobility, Goals/plan of care, Use of assistive device, and Fall prevention Method of Education: Verbal discussion and explanation provided to pt: verbalized understanding andor agreement of this information and demonstrated the exercise and or task Treatment Provided: Evaluation Moderate Complexity 14 minutes - 37257: Patient was cooperative and pleasant during treatment session. Moderate complexity evaluation performed and 1-2 personal factorsor comorbidities were identified that will impact plan of care, including cardiac history. Patient presents with limitations in strength, bed mobility, transfers, gait, elevations, balance, endurance, and safety, which will impact plan of care. These limitations will be addressed by the goals set for this patient. Alarm Status Patient positioned in: Chair (01/30/241211) With: Pressure pad alarm intact and functioning and call forde in reach (01/30/241211) Following session patient seated OOB in chair with chair alarm activated. Chair alarm (did not havecord to plug into call forde system and/or room did not have port to plug cord into call forde system). Patient's nurse Eloina was made aware. Goals: Demonstrate Bed Mobility with: modified independent Demonstrate Transfers with: modified independent Demonstrate Ambulation: least restrictive device, 250 ft with modified independent Demonstrate Stairclimbing: Number of steps: 1 and Level of Assistance: modified independent Increase Strength of: B/L LE by 1/2-1 muscle grade Increase dynamic standing balance to: fair + Increase Safety: with all functional mobility Time Frame: 8 visits Assessment: Pt is a 68 year old male presenting s/p CABG. Pt alert and oriented x4, following all commands throughout session. Educated pt on sternal precautions prior to mobility in which pt verbalized understanding and agreement. Pt demonstrating fair, symmetrical B/L LE strength/ROM and intact se nsation. Pt performing all mobility with contact guard for safety and stability. Pt ambulating intohall with rolling walker, demonstrating decreased step length/height but good safety awareness. Please consider home with post-acute care services which may include home health or outpatient therapy.The level of care will be determined in collaboration with the patient, family/caregiver and care team members. All needs met. Deficits requiring P.T. treatment needs: Safety;Mobility;Balance;Weakness;Endurance;Lower extremitystrength (01/30/241211) Equipment Needs: Equipment needs: (tbd) (01/30/241211) Treatment Plan: Bed mobility training, Transfer training, Gait training, Strengthening exercises: B/L LE, Balance activities, and Educate on safety with B/L LE Anticipated Frequency (on eval): 1 to 3 times per week (01/30/241211) AM PAC Score with Stairs: 18 A portion of this AM-PAC assessment not scored based on functional assessment; rather clinical decision making utilized based on current findings and/or prior level of function. Please refer to future AM-PAC calculations of functional ability as they become available. * Rogerio Roblesi, OTR/L - 01/30/2024 11:58 AM EDTAssociated Order(s): ADULT OCCUPATIONAL THERAPY CONSULT IP GENERAL EVALUATION - Occupational Therapy [address] [address] Name: Pahsa Castro Jr. Location: [facility] H750/A Date: 01/30/2024 Time: 11:58 AM Pasha Castro Jr. is a 68 year old male. Patient Status: Inpatient Insurance: Payor: MEDICARE Plan: MEDICARE A AND B Product Type: *No Product type* Payor: AARP Plan: AARP Product Type: *No Product type* Patient Seen: at bedside, nursing cleared patient for therapy Patient Identified By: Name, ID Band and Date Diagnosis: s/p CABG x 4, AVR (01/30/24 115) Status of treatment: Evaluation completed (01/30/24 115) Orders: OT evaluation and treatment;OT OOB (01/30/24 115) Weight Bearing Status: Weight bearing as tolerated (01/30/24 115) Precautions: Alarms;Falls;Safety;Chest tube;Collazo;Oxygen;Skin;Sternal;Cardiac (01/30/24 1158) Total Treatment Time: 15 (01/30/24 115) Per Epic: "HPI: Pasha Castro Jr. is a 68 year old male with a pmhx significant for MVCAD, Aortic stenosis, DLD, CLL, ALIE, DM2 on Ozempic who presents with CAD and moderate to severe . Patient presents now noting recent increase in symptoms of exertional chest pressure pain while walking in the [place] during season. No fevers chills or unexplained infections. No bleeding difficulties Appetite and weight are stable Still working [facility] PREOPERATIVE DIAGNOSIS: CAD, aortic stenosis POSTOPERATIVE DIAGNOSIS: same SURGEON: Aravind Rust MD ASSISTANTS: Shelbi Burroughs NP ANESTHESIA: general OPERATION: CABG X 4 JOHNSON to LAD SVG to RAMUS, OM, LPDA. AVR with 25mm Inspiris Valve" Past Medical History: Past Medical History: Diagnosis Date BPH (benign prostatic hyperplasia) CAD (coronary artery disease) CLL (chronic lymphocytic leukemia) (H[facility]) 09/11/2012 DM, CONTROLLED, TYPE II 02/26/2002 Dyslipidemia, goal LDL below 100 08/17/2009 Per Lipid Taxonomy. GERD (gastroesophageal reflux disease) OA (osteoarthritis) ALIE (obstructive sleep apnea) 08/10/2013 AHI 18.0 on baseline PSG on 07/17/13 Refusal of medication 01/06/2013 refused ACEI despite proteinuria Type 2 diabetes mellitus with hemoglobin A1c goal of less than 8.0% ([facility]) 02/09/2016 Past Surgical History: Past Surgical History: Procedure Laterality Date COLONOSCOPY W/ LESION REMOVAL, SNARE 12/22/2008 8 mm polyp removed- path pending COLONOSCOPY W/ LESION REMOVAL, SNARE 01/29/2019 5 sessile polyps, multiple AVMs in ascending and transverse colon, hemorrhoids COLONOSCOPY, DIAGNOSTIC (RECTUM) 12/27/2013 COLONOSCOPY FLEXIBLE PROXIMAL DIAGNOSTIC performed by Herminio Inman MD at [facility] COLONOSCOPY, DIAGNOSTIC (RECTUM) 01/29/2019 adenomatous polyps, diverticulosis, repeat 3 yrs/COLONOSCOPY FLEXIBLE PROXIMAL DIAGNOSTIC performedby Herminio Inman MD at [facility] COLONOSCOPY, DIAGNOSTIC (RECTUM) 09/27/2022 benign adenomatous polyps, diverticulosis, repeat 3 yrs / COLONOSCOPY FLEXIBLE PROXIMAL DIAGNOSTIC performed by Herminio Inman MD at [facility] EGD, FLEXIBLE, DIAGNOSTIC 08/12/2023 ESOPHAGOGASTRODUODENOSCOPY (EGD), FLEXIBLE, TRANSORAL, DIAGNOSTIC performed by Nita Inman MD at [facility] INFORMATION 01/15/2024 Heart Cath. INFORMATION Left L TKA. LUMBAR SPINE FUSION, POSTEROLATERAL N/A 12/28/2020 ARTHRODESIS SPINE POSTERIOR LUMBAR performed by Nehemiah Neal III, MD at [facility] MISCELLANEOUS ORDER ([facility] ONLY) left 7cm labrum tear, shoulder with repair MISCELLANEOUS ORDER ([facility] ONLY) right, arthroscopic shoulder surgery NECK SPINE FUSION (CERV, BELOW C2) 1993 REPAIR INITIAL INGUINAL HERNIA REDUCIBLE AGE 5 OR MORE Left 06/17/2016 REPAIR INITIAL INGUINAL HERNIA REDUCIBLE AGE 5 OR MORE performed by Nehemiah Guevara DO at [facility] RPR AA HERNIA 1ST < 3 CM REDUCIBLE N/A 01/14/2023 EPIGASTRIC/UMBILICAL HERNIA REPAIR INITIAL < 3 CM REDUCIBLE performed by Kashif Deal MD at [facility] SPINE FUSION, EACH ADD'L VERTEBRA N/A 12/28/2020 ARTHRODESIS SPINE POSTERIOR EACH ADDITIONAL VERTEBRAE performed by Nehemiah Neal III, MD at [facility] Social History/Disposition Lives with: Spouse (01/30/241157) Assistance available: Yes (01/30/241157) Dwelling type: Single story home (01/30/241157) Entry steps: 1 (01/30/24 115) Inside steps: None (01/30/241157) Bedroom location: 1st floor (01/30/24 115) Bath location: 1st floor full bath (01/30/241157) Prior Level of Function Reported by: Patient (01/30/241157) Ambulation: Ambulatory without device (01/30/24 115) Grooming: Independent (01/30/241157) Bathing: Independent (01/30/24 115) Dressing: Independent (01/30/24 115) Feeding: Independent (01/30/24 115) Toileting: Independent (01/30/24 1158) Meal Prep: Independent (01/30/24 1158) Homemaking: Independent (01/30/24 1158) Shopping: Independent (01/30/24 115) Driving: Yes (01/30/241157) Durable Medical Equipment at home: Rolling walker;Bedside commode;Straight cane (01/30/241157) Subjective: Pt was noted to be seated OOB in chair upon arrival and agreeable to therapy services. Pain: Patient has complaints of pain. Pain located incisional, not rated. Observations Consciousness: Alert (01/30/241157) Orientation: Oriented times 4 (01/30/241157) Psychosocial: Patient can communicate basic needs;Patient can converse in a social setting (01/30/241157) Sitting posture: Forward head;Rounded shoulders (01/30/241157) Standing posture: Forward head;Rounded shoulders (01/30/241157) Safety awareness: The Patient verbalizes insight of current deficits. (01/30/241157) Other Findings Endurance: Fair (01/30/241157) Light touch sensation: RUE;Intact;LUE;Impaired (numbness/tingling in last 3 digits) (01/30/24 115) Coordination: LUE;RUE;Gross motor;Fine motor;Intact (01/30/241157) Current Functional Status: Bilateral Upper Extremity Range of Motion: WFL (01/30/241157) Strength Assessment: (at least 3/5 throughout (formal MMT not assessed due to sternal precautions))(01/30/241157) Dressing Upper Body: Minimal Assistance (simulated gown) (01/30/241157) Lower Body: Maximal Assistance (to denis socks) (01/30/241157) Functional Ambulation Assistive Device: Rolling walker (01/30/241157) Distance in feet:: 50 (01/30/241157) Level of Assistance: Contact Guard (01/30/241157) OT Transfers Sit-Stand: Contact Guard (01/30/241157) Stand-Sit: Contact Guard (01/30/241157) Balance Sit (Static): Fair (01/30/241157) Sit (Dynamic): Fair (01/30/241157) Stand (Static): Fair (-) (01/30/241157) Stand (Dynamic): Fair (-) (01/30/241157) Alarm Status Patient positioned in: Chair (01/30/241157) With: Pressure pad alarm intact and functioning and call forde in reach (01/30/241157) Following session patient seated OOB in chair with chair alarm activated. Chair alarm (did not havecord to plug into call forde system and/or room did not have port to plug cord into call forde system). Patient's nurse Jazmine was made aware. Patient and Family Goals: to get well and to return home Patient Education Education Topic: Role of OT;Plan of care goals (01/30/241157) Review of Precautions: Safety;Skin;Fall;Sternal;Cardiac (01/30/241157) Method of Education: Verbalized to patient (01/30/241157) Education Provided to: Patient (01/30/241157) Response to Education: Receptive and agreeable to education (01/30/241157) Barriers to learning: Medical status (01/30/241157) Preferred learning method: Combination (01/30/241157) Treatment Provided: Evaluation Moderate Complexity 15 minutes - 57083: Patient was cooperative and pleasant during treatment session. Moderate complexity evaluation performed and 3-5 activity limitations were identified, including ADL deficit, functional mobility deficit, decreased strength, decreased endurance, and impaired balance. Minimal or moderate modification of the functional task was necessary to complete the evaluation. Deficits Requiring O.T. Treatment: Deficits requiring O.T. treatment needs: ADL/self-care;Balance;Endurance;Functional mobility;Safety;Upper extremity strength;Weakness (01/30/24 1158) Goals: Demonstrates Self-care at: Feeding: Modified Independent Grooming: Modified Independent Toileting: Modified Independent UE dressing: Modified Independent UE bathing: Modified Independent LE dressing: Modified Independent LE bathing: Modified Independent Demonstrates Bed Mobility at: Supine-Sit: Modified Independent Sit-Supine: Modified Independent Demonstrates transfers at: Sit-Stand: Modified Independent Stand-Sit: Modified Independent Bed-Chair: Modified Independent Toilet: Modified Independent Shower/Tub: Modified Independent Demonstrates functional ambulation at: Assistive device: appropriate device as needed Level of Assistance: Modified Independent Balance: Static Sitting: Fair+ Dynamic Sitting: Fair+ Static Standing: Fair+ Dynamic Standing: Fair+ Strength/ROM: Increase BUE strength 1/2 muscle grade Endurance: Increase endurance to 30/30 minutes in order to improve participation in ADL tasks and general mobility Safety awareness/Cognition: Increase safety awareness during functional mobility Precautions: Adhere to sternal precautions throughout participation in ADL tasks and general mobility Goal Time Frame: 8 visits Assessment: Pt was admitted to [facility] for the above dx. Pt was pleasant and cooperative during his OT evaluation this date. Upon arrival, pt was seated OOB in chair and agreeable to therapy services. Prior to admission, pt reports that he lives with his in a 1 story home with 1 step to enter. Pt states that he was previously independent with ADL/IADL tasks and for mobility without a device. Prior to mobility, pt educated on sternal precautions, with good return understanding noted. Upon exam,pt performed simulated UE dressing task with min A secondary to lines/tubes and LE dressing task with max A due to increased pain at incision site when flexing forward towards b/l lower extremities. Sit<>stand transfer and ambulation were completed with contact guard. Pt ambulated 50 ft with use of a rolling walker. Ambulation currently limited due to decreased endurance. Following session,pt was noted to return to seated position in chair with call forde in reach. All needs met. Currently, pt presents with difficulty in ADL completion and general mobility secondary to decreased strength, balance, endurance, safety awareness, and overall current medical status. Pt would benefit from acute OT services to increase his independence with ADL tasks and general mobility. In regard to discharge, please consider home with post-acute care services which may include home health or outpatient therapy. The level of care will be determined in collaboration with the patient, family/caregiver and care team members. Treatment Plan: Accuracy with Precautions, Energy Conservation, Safety, Bed mobility training, Functional Ambulation, Transfer training, Upper extremity strengthening, Balance activities, ADL training, Endurance, and Educate on safety with ADLs and mobility. Anticipated Frequency (on eval): 1 to 3 times per week (01/30/241157) AM-PAC Help From Another Person Eating Meals: None (01/30/241157) Help From Another Person Taking Care of Personal Grooming: A little (01/30/241157) Help From Another Person To Put On/Take Off Upper Body Clothing: A little (01/30/241157) Help From Another Person To Put On/Take Off Lower Body Clothing: A lot (01/30/241157) Help From Another Person Toileting: A little (01/30/241157) Help From Another Person Bathing: A lot (01/30/241157) OT AM-PAC Score: 17 (01/30/241157) OT AM-PAC t-Scale Score: 37.26 (01/30/241157) HLM (Highest Level of Mobility) Goal: Level 4 move to chair/commode (01/29/241999) A portion of this AM-PAC assessment not scored based on functional assessment; rather clinical decision making utilized based on current findings and/or prior level of function. Please refer to future AM-PAC calculations of functional ability as they become available. * Ibrahima Villa RN - 01/30/2024 8:48 AM EDTAssociated Order(s): BLOOD MANAGEMENT CONSULT IP CONSULT - Patient Blood Management [address] [address] Name: Pasha Castro Jr. [place]: [facility] H750/A Date: 01/30/2024 Time: 8:48 AM REQUESTING SERVICE: [facility] CVTS REASON FOR CONSULT: new evaluation inpatient, POD#1 CABGx4,AVR Recent hemorrhage: no History of prior anemia: no Recent surgery: yes Anemia Evaluation: Component Latest Ref Rng 01/26/2024 01/30/2024 HGB 14.0 - 16.8 g/dL 13.8 (L) 8.6 (L) HCT 40.0 - 48.4 % 42.8 26.0 (L) Current Patient Medications: Medications that may impair hemostasis: bASA Medications that may impair iron absorption: prilosec Patient Refused Blood Transfusion? (e.g. Sabianism): no Possible Contributing Factors: acute blood loss Treatment Recommendations: If no active hemorrhage, consider PRBC transfusion only for severe anemia and use a 1 unit PRBC dose followed by a repeat clinical assessment. For reversal of anticoagulation therapy, use Reversal of Anticoagulation order set. Limit and coordinate blood draws to prevent iatrogenic anemia. Venofer 300mg IVPB daily x 2 days B12 1mg daily Continue vitamin daily x 2 months on D/C for ABLA Follow-up Recommendations: Follow up with PCP for further assessment/management of anemia post discharge. Spoke with Wendy DIAZ in regards to current recommendations, agreeable to same. Thank you for allowing Blood Management to participate in the care of this patient. documented in this encounter Nursing Notes * Kristi Brice RN - 02/02/2024 10:26 AM EDT I have conducted the discharge appointment with the patient and family on 02/02/2024 at 0953 . This discussion occurred bedside. Meds to beds offered: no. The following post care is planned: PCP follow up. I encouraged the patient and/or family to call the hospital with any questions or concerns about the hospital admission. * Celeste Ochoa RN - 01/29/2024 6:20 PM EDT Order to extubate placed at 1745, witnessed by Celeste Ochoa RN and Kyrie Alvarez, SARA. Positive cuff leak noted. Pt extubated to 6L NC.No stridor noted. Will continue to monitor. * Celeste Ochoa RN - 01/29/2024 1:30 PM EDT Dual Licensed Skin Assessment completed by Celeste Ochoa RN and Esvin Cortez RN. The patient is/has a N/A Skin Breakdown (includes non blanchable erythema): Yes - Surgical/Procedural changes only. Pt is s/p CABGx4 and AVR with MSI with KAREN drsg, two trocar sites with gauze,L EVH site with evelia wrap * Jacquelyn Newman RN - 01/29/2024 6:47 AM EDT Dual Licensed Skin Assessment completed by kailey newman rn and justyn blackburn rn. The patient is/has a N/A Skin Breakdown (includes non blanchable erythema): No documented in this encounter OR Notes * OR Surgeon - Aravind Rust MD - 01/29/2024 1:06 PM EDT OPERATIVE RECORD OR [facility], OPERATING ROOM [facility], ANETA [facility]R[address] [facility] [address] Pasha Castro : 1955 Location: [facility] SERVICE: Cardiac Surgery DATE: 01/29/24 PREOPERATIVE DIAGNOSIS: CAD, aortic stenosis POSTOPERATIVE DIAGNOSIS: same SURGEON: Aravind Rust MD ASSISTANTS: Shelbi Burroughs NP ANESTHESIA: general OPERATION: CABG X 4 JOHNSON to LAD SVG to RAMUS, OM, LPDA. AVR with 25mm Inspiris Valve FINDINGS: triphasic flow in grafts, no perivalvular leak on BUFFY ESTIMATED BLOOD LOSS: 500ml DRAINS: CT X 2 FLUIDS: adequate mL. URINE OUTPUT: adequate SPECIMEN: None. COMPLICATIONS: None. CONDITION: stable INDICATIONS AND HISTORY: Pasha Castro is a 68-year-old male with past medical history significant for coronary artery disease, dyslipidemia, diabetes, hypertension and CLL who has been experiencing increasing anginal symptoms. Coronary angiogram demonstrated severe multivessel coronary disease. Echo cardiogram revealed an ejection fraction of 50% and [id number] aortic stenosis. Due to his multivessel disease, aortic stenosis and progressive symptoms he was offered surgical therapy. DESCRIPTION OF OPERATION: The patient was placed on the operating table in the supine position. General anesthesia was induced and monitoring lines placed by anesthesia. He was prepped and draped in usual sterile fashion. Greater saphenous vein was endoscopically harvested from the left lower extremity. Median sternotomy performed and the left internal mammary artery taken from beneath the left sternum. The patient was heparinized and placed on cardiopulmonary bypass using a cannula in the ascending aorta and a three-stage venous cannula in the right atrium. A left ventricular vent was placedthrough the right superior pulmonary vein. The patient was systemically cooled and the aorta crossclamped. Cold [place] cardioplegia was delivered in antegrade fashion with prompt diastolic arrest of the heart. The patient had a codominant circulation. The right coronary artery was diffusely diseased and not bypassable. There posterior descending artery that was coming off the circumflex was an acceptable target. A segment of saphenous vein was anastomosed to it in end-to-side fashion using 7 0 Prolene. This graft was sequence in a doob-je-zjfb fashion to the first obtuse marginal coronary artery using 7 0 Prolene. The graft was sequence one additional time to the ramus intermedius coronary artery using 7 0 Prolene. The left internal mammary artery was then anastomosed the distal left anterior descending coronary artery using 8 0 Prolene. Attention was turned towards the aortic valve. The aorta was opened via an oblique aortotomy. The aortic valve was trileaflet and calcified. The leaflets were removed and the annulus aggressively debrided of all calcium. There was calcium extending onto the anterior leaflet of the mitral valve. This was debrided. The ventricle was irrigated withiced saline solution to remove any debris. The annulus was sized to a 25 mm Inspiris bioprosthetic valve. This was sewn in place in the supra-annular position using pledgeted sutures of 2-0 Ethibond.Once the valve was seated the left and right coronary ostium were inspected and found to be widely patent. The aorta was closed a running 2 layer closure of 4-0 Prolene. Under a single crossclamp thevein graft was anastomosed to ascending aorta using 6 0 Prolene. The heart was de-aired and the aortic cross-clamp removed. Following a period of rewarming the patient was weaned from cardiopulmonary bypass without difficulty. Transesophageal echo demonstrated normally functioning bioprosthetic valve and no evidence of perivalvular leak. The heparin was reversed and all cannulas removed. Temporary pacing wires were placed on right ventricle and chest tubes placed in the left pleural space and mediastinum. After assuring adequate hemostasis the chest was closed with surgical steel wire for thesternum followed by layered closure of Vicryl and a subcuticular stitch for skin. The patient tolerated the procedure well. Sponge and needle counts were correct. The patient was returned to the ICU in stable condition. Was there a qualified resident that took part in the case? No - The skilled assistance of the advanced practitioner/physician was necessary for the successful completion of this case. Chief Mechanical Officer name: Shelbi Burroughs NP Chief Mechanical Officer role: The advanced practitioner/physician was essential for retraction, wound closure, and saphenous vein harvesting - endovascular I understand that section 1842 (b)(7)(D) of the Social Security Act generally prohibits Medicare physician fee schedule payment for the services of [id number] in teaching hospitals when qualified residents are available to furnish such services. I certify that the services for which payca nt is claimed were medically necessary, and that no qualified resident was available to perform theservices. I further understand that these services are subject to post-payment review by the Medicare carrier. Aravind Rust MD 01/29/2024 1:06 PM documented in this encounter Miscellaneous Notes * Ancillary Progress Note - Haley Jesus LSW - 02/02/2024 10:47 AM EDT CARE MANAGEMENT - ADULT DISCHARGE NOTE [address] [address] Name: Pasha Castro Jr. Location[facility] Date: 02/02/2024 Time: 10:47 AM The following coordination of care and discharge plan has been coordinated with the care team, patient, family and/or caregiver according to the patients needs and preferences. Discharge Discharge Second Notice Important Message from Medicare delivered: Yes (02/02/24 104) Date Delivered: 02/02/24 (02/02/24 104) Was Caregiver/Family/Facility contacted regarding discharge: Yes (02/02/24 1021) Discharge Transportation: Family/Friends drive (02/02/241046) Patient declined post-hospital transition of care recommendation: Home Health (02/02/241046) Final Discharge Plan (Complete only at time of Discharge): Home - Self Care (02/02/241046) Narrative: Per service, patient is stable for discharge. Patient to return to home w/ family support and family to provide transportation. Patient declined home health this admission. No other care management needs identified by service. Please contact care management w/ any changes to discharge plan. Reviewed IMM with patient and informed that patient is medically stable for discharge, however, mayhave 4 hours to consider whether they want to appeal discharge. Patient waived waiting those 4 hours and wishes for discharge to occur prior to that time. * Progress Notes - Post-Op Global - Aravind Márquez MD - 02/02/2024 12:00 AM EDT PROGRESS NOTE - CARDIAC SURGERY [address] [address] Name: Pasha Castro Jr. [place] [facility] [place] [facility] Date: 02/02/2024 Time: 12:00 AM OPERATION: CABG X 4 (JOHNSON to LAD; SVG to RAMUS, OM, LPDA), AVR with 25mm Inspiris Valve SURGEON: Araivnd Rust MD POD#: 4 PATIENT ISSUES/EVENTS: Stable interval. No further afib but some frequent PVCs overnight treated with Amio bolus. PHYSICAL EXAM: General: no acute distress Heart Exam: regular rate and rhythm and no murmur, gallops, or rubs Lungs: normal respirations Abdominal Exam: abdomen soft, non-tender, and normal active bowel sounds Extremities: warm, dry, well perfused, and edema trace bilaterally Incision: sternotomy - clean, dry and intact, vein harvest site - clean, dry and intact Neurological: alert Pulses: radial and dorsalis pedis CURRENT CORE CARDIAC MEDICATIONS: Beta Manuel: yes ASA: yes Statin: yes EVELIA-Inhibitor / ARB: no, explain -- normal LVEF POSTOPERATIVE COMPLICATIONS: acute post op blood loss anemia atrial fibrillation ADDITIONAL PROCEDURES: none ASSESSMENT/PLAN: Cardiovascular: -NSR, rate 60-70s, SBP 100-120s -Afib RVR 01/30 -> Amio 400mg TID -Beta manuel: Lopressor 12.5mg -Statin: Crestor 20mg -Pre-op EF 60% -Central Line(s): No -Pacer Wires: no Pulmonary: -Satting well on RA -Daily CXR -Aggressive pulmonary toilet -Chest Tubes/Oleksandr Drains: No Chronic Issues: -ALIE (not on CPAP) GI: -Diet: Consistent carb -Bowel regimen -> no BM since surgery -EPIC KALEIDOSCOPE ANALYST Prilosec for GI prophylaxis /Renal: -Pre-op renal function normal, last Cr 1.2 -Collazo: No -PO Lasix 40mg + K 20mEq -Flomax started for feeling of incomplete emptying despite low PVR Hematology: -Hgb 8.4, plt 79 -SQ Heparin held for low platelets -Aspirin 81mg -Blood products: 2 FFP, 2 cryo, 1 platelet, and DDAVP Chronic Issues: -CLL Neuro/P.T./O.T.: -Neurologically intact -Pain controlled -Increase activity as tolerated Infectious Disease: -Afebrile, WBC 50.35 (CLL) -Pre-op urine culture negative -Pre-op nasal culture indeterminate - given Bactroban and Vanco Endo: -SSI+ CC, Metformin, Prandin Chronic Issues: -DM2 (A1C 7.5) on Metformin, Farxiga, Prandin, and Ozempic Plan: -Lopressor 12.5mg -Amio 400mg TID for post-op afib -PO Lasix 40mg + K 20mEq -Increase activity as tolerated -Home today Jacki Jansen PA-C 02/02/2024 12:01 AM ATTENDING STAFF I have seen and examined the patient. Doing well. No further afib. Home today. * Respiratory Progress Note - Kobe Cheema RRT - 02/01/2024 4:00 AM EDT PDP RE-EVALUATION NOTE - Respiratory Care Services [facility] [place] [address] Name: Pasha Castro Jr. [place]: [facility] [place] [facility] Date: 02/01/2024 Time: 4:01 AM Patient Driven Protocol Summary: Re-evaluation . This Treatment Plan and medications will be reviewed by the Primary Care Team for any contraindications. Respiratory Care Treatment Plan Pulmonary Volume Expansion Therapy: Incentive Spirometry BID to prevent or treat alveolar consolidation and atelectasis. Additional Pulmonary Volume Expansions: EzPAP Treatment: BID to prevent or treat alveolar consolidation and atelectasis. . Secretion Management Treatment: Flutter TherapyBID to enhance mobilization of secretions. .. The patient will be re-evaluated: within 48 hours. The Triage Level is: (Assessment Score = 6 -10) Level 4. Triage Level Definitions: Level 1 Severe Respiratory/Airway Compromise Level 2 Moderate Respiratory/Airway Compromise or high risk for pulmonary complications Level 3 Mild Respiratory/Airway Compromise or moderate risk for pulmonary complications Level 4 Episodic Respiratory/Airway Compromise or low risk for pulmonary complications Level 5 No Respiratory/Airway Compromise Triage 1 Triage 2 Triage 3 Triage 4 Triage 5 greater than 20 16 - 20 11 - 15 6 - 10 0 - 5 Medical Record Assessment Clinical Findings Pulmonary Status: 0 - No History Surgical Status: 3 - Thoracic or Upper Abdominal Chest X-Ray: 2 - Infiltrates and/or Atelectasis Assessment Score: 5 Patient Assessment Clinical Findings Respiratory Pattern: 1 - RR 21 - 25; Patient gets short of breath when hurrying on level ground or walking up a slight hill. Breath Sounds: 0 - Clear to auscultation Cough Effectiveness: 0 - Strong non-productive Sputum Production 0 - No sputum production Level of Activity: 1 - Ambulatory with assist O2 needed to keep SpO2 greater than or equal to 92%: 0 - Room Air Assessment Score: 2 Total Assessment Score: 7 Breath Sounds: Inspiratory and expiratory clear and diminished bilaterally.. Cough and Sputum: An effective cough produced no sputum... Vital Signs: Resp: 21 (02/01/24 0300) Pulse: 70 (02/01/24 0300) Temp: 36.9 C (98.4 F) (02/01/24 0000) BP: 118/53 (02/01/24 0300) SpO2: 93 % (02/01/24 0300) PFT: Minimal Predicted IC: 1.1 L. Inspiratory capacity: 1L. Primary Service: Cardiac Surgery. Admitting Diagnosis: Nonrheumatic aortic valve stenosis [I35.0] Coronary artery disease of [place] artery of [place] heart with stable angina pectoris (HCC) [I25.118] Pulmonary Diagnosis: CAD and ALIE. * Progress Notes - Post-Op [facility] - Aravind Márquez MD - 02/01/2024 12:05 AM EDT PROGRESS NOTE - CARDIAC SURGERY [facility] [place] [address] Name: Pasha Castro Jr. [address]: 02/01/2024 Time: 12:05 AM OPERATION: CABG X 4 (JOHNSON to LAD; SVG to RAMUS, OM, LPDA), AVR with 25mm Inspiris Valve SURGEON: Aravind Rust MD POD#: 3 PATIENT ISSUES/EVENTS: Afib RVR started early yesterday morning but eventually converted back to NSR around 1200 on Amio gtt. Some issues with bladder spasms overnight but voiding with minimal PVR and no dysuria. PHYSICAL EXAM: General: no acute distress Heart Exam: regular rate and rhythm and no murmur, gallops, or rubs Lungs: normal respirations Abdominal Exam: abdomen soft, non-tender, and normal active bowel sounds Extremities: warm, dry, well perfused, and edema trace bilaterally Incision: sternotomy - clean, dry and intact, vein harvest site - clean, dry and intact Neurological: alert Pulses: radial and dorsalis pedis CURRENT CORE CARDIAC MEDICATIONS: Beta Manuel: yes ASA: yes Statin: yes EVELIA-Inhibitor / ARB: no, explain -- normal LVEF POSTOPERATIVE COMPLICATIONS: acute post op blood loss anemia ADDITIONAL PROCEDURES: none ASSESSMENT/PLAN: Cardiovascular: -NSR, rate 70s, SBP 90-100s -Afib RVR 01/30 -> Amio gtt + 400mg TID -Beta manuel: Lopressor 12.5mg -Statin: Crestor 20mg -Pre-op EF 60% -Central Line(s): Yes, reason: Hemodynamic monitoring - will d/c when Amio gtt runs out -Pacer Wires: yes - will d/c today if no further afib Pulmonary: -Satting well on RA -Daily CXR -Aggressive pulmonary toilet -Chest Tubes/Oleksandr Drains: No Chronic Issues: -ALIE (not on CPAP) GI: -Diet: Consistent carb -Bowel regimen -> no BM since surgery -EPIC KALEIDOSCOPE ANALYST Prilosec for GI prophylaxis /Renal: -Pre-op renal function normal, last Cr 1.0 -Collazo: No -IV Lasix 40mg prn -Flomax started for feeling of incomplete emptying despite low PVR Hematology: -Hgb 8.8, plt 84 -SQ Heparin held for low platelets -Aspirin 81mg -Blood products: 2 FFP, 2 cryo, 1 platelet, and DDAVP Chronic Issues: -CLL Neuro/P.T./O.T.: -Neurologically intact -Pain controlled -Increase activity as tolerated Infectious Disease: -Afebrile, WBC 58.78 (CLL) -Pre-op urine culture negative -Pre-op nasal culture indeterminate - given Bactroban and Vanco Endo: -SSI+ CC, Metformin, Prandin Chronic Issues: -DM2 (A1C 7.5) on Metformin, Farxiga, Prandin, and Ozempic Plan: -Lopressor 12.5mg -Amio gtt + 400mg TID for post-op afib -Diurese with IV Lasix 40mg prn -D/c wires and CVC in AM if no further afib -Increase activity as tolerated -Home soon Jacki Jansen PA-C 02/01/2024 12:09 AM ATTENDING STAFF I have seen and examined the patient. Back in SR. Doing well. Diureiss. Remove pacing wires. Ambulate. Home soon * Progress Notes - Post-Op [facility] - Aravind Márquez MD - 01/31/2024 12:45 AM EDT PROGRESS NOTE - CARDIAC SURGERY [facility] [place] [address] Name: Pasha Castro Jr. [place]: [facility] [place] [facility] Date: 01/31/2024 Time: 12:45 AM OPERATION: CABG X 4 (JOHNSON to LAD; SVG to RAMUS, OM, LPDA), AVR with 25mm Inspiris Valve SURGEON: Aravind Rust MD POD#: 2 PATIENT ISSUES/EVENTS: Some pain and discomfort from chest tubes. Otherwise stable interval. PHYSICAL EXAM: General: no acute distress Heart Exam: regular rate and rhythm and no murmur, gallops, or rubs Lungs: normal respirations Abdominal Exam: abdomen soft, non-tender, and normal active bowel sounds Extremities: warm, dry, well perfused, and edema trace bilaterally Incision: sternotomy - clean, dry and intact, vein harvest site - clean, dry and intact Neurological: alert Pulses: radial and dorsalis pedis CURRENT CORE CARDIAC MEDICATIONS: Beta Manuel: yes ASA: yes Statin: yes EVELIA-Inhibitor / ARB: no, explain -- normal LVEF POSTOPERATIVE COMPLICATIONS: acute post op blood loss anemia ADDITIONAL PROCEDURES: none ASSESSMENT/PLAN: Cardiovascular: -NSR, rate 80-90s, SBP 120-130s -Beta manuel: Lopressor 12.5mg -Statin: Crestor 20mg -Pre-op EF 60% -Central Line(s): Yes, reason: Hemodynamic monitoring -Pacer Wires: yes - will d/c in AM Pulmonary: -Satting well on 2L NCO2 -Daily CXR -Aggressive pulmonary toilet -Chest Tubes/Oleksandr Drains: Yes: drainage minimal and on suction - will d/c today Chronic Issues: -ALIE (not on CPAP) GI: -Diet: Consistent carb -Bowel regimen -> no BM since surgery -EPIC KALEIDOSCOPE ANALYST Prilosec for GI prophylaxis /Renal: -Pre-op renal function normal, last Cr 0.7 -Collazo: Yes, reason: fluid monitoring and diuresis - will d/c today -IV Lasix 40mg prn Hematology: -Hgb 8.6, plt 80 -SQ Heparin held for low platelets -Aspirin 81mg -Blood products: 2 FFP, 2 cryo, 1 platelet, and DDAVP Chronic Issues: -CLL Neuro/P.T./O.T.: -Neurologically intact -Pain controlled -Increase activity as tolerated Infectious Disease: -Afebrile, WBC 39.30(CLL) -Post-op Ancef x 5 doses -Pre-op urine culture negative -Pre-op nasal culture indeterminate - given Bactroban and Vanco Endo: -SSI+ CC, Metformin, Prandin Chronic Issues: -DM2 (A1C 7.5) on Metformin, Farxiga, Prandin, and Ozempic Plan: -Lopressor 12.5mg -Diurese with IV Lasix 40mg prn -D/c chest tubes and wires in AM -D/c collazo later today -Increase activity as tolerated Jacki Jansen PA-C 01/31/2024 12:49 AM Addendum: Afib RVR with rates as fast as 200-210s this AM. Rates improved with Amio bolus x 2 and IV Lopressor 2.5mg. Patient asymptomatic throughout aside from slight diaphoresis. If afib persists over the next hour, will start Amio gtt and PO. Will leave wires for today. Jacki Jansen PA-C 01/31/2024 5:47 AM ATTENDING STAFF I have seen and examined the patient. New afib, rate in the 140s and tolerating, looks well. Amiodarone. Remove chest tubes, keep wires. * Ancillary Progress Note - Ana Medina RN - 01/30/2024 2:50 PM EDT CARE MANAGEMENT - ADULT INITIAL SCREENING [facility] [place] [address] Name: Pasha Castro JrMariel [place] [facility] [place] [facility] Date: 01/30/2024 Time: 2:50 PM Discussed patient with the interdisciplinary care team. This Locomotive Firer/Fireman performed a chart review and met with Cristina at bedside to complete admission screen and assessed needs for transition planning. The career development director role and services were explained and emotional support was provided. Chief Complaint: No chief complaint on file. Prior Living Arrangements What was your living situation prior to admission/observation?: Independently;With Spouse () Living Quarters: House (01/30/241448) Number of steps to enter living quarters:: 2 (01/30/241448) History of falling: No (01/30/24799) Prior Level of Functioning Describe the patient's ability prior to admission/observation to perform ADLs: Performs independently (01/30/241448) Requires assistance with: Toileting;Bathing;Grooming;Dressing (01/29/241999) Describe the patient's mobility status prior to admission: Patient ambulates independently (01/30/241448) Patient uses assistive device: No (01/30/241448) Caregiver Information Patient Contacts Name Relation Home Work Mobile Adrianne Castro Spouse [phone] BROOKE MARIN Other - (no specific identity) [phone] Risk Stratification/Psychosocial/Care Gaps Risk Stratification Psycho Social / Medical Concerns Identified: Multiple Comorbidities;New serious diagnosis () Accessed Neighborly to connect patients to social care resources: No (01/30/241448) OBRA or OPTIONS needed for placement: No (01/30/241448) Readmission Risk Score: 12.75 (01/30/24 1200) AM-PAC Score With Stairs : 18 (01/30/24 1212) Prior to Admission Services Services Prior to Admission EPIC KALEIDOSCOPE ANALYST Services (Services received within the last 30 days with exception, Psych within last two years): N/A (01/30/241448) [place] [employer]ging (PDA) Waiver Program: N/A (01/30/241448) EPIC KALEIDOSCOPE ANALYST Transportation (Services received within the last 30 days): Family/Friends Personal Vehicle;Patient drives self (01/30/241448) Outpatient Locomotive Firer/Fireman: Patient Care Team: Shivani Rowan RN as Dubbing Machine Operator (Registered Nurse) Patient/Family Expectations: Lives in a one story home with spouse. Has a walker and cane as well as a shower chair as needed. Declines services. For further screening information, please refer to the Care Management flow document. * Care Plan - Bladimir Alexandra RN - 01/30/2024 7:31 AM EDT Problem: Pain & Impaired Comfort Goal: Patient's pain & discomfort is manageable. Outcome: Progressing Problem: Safety & Risk for Injury Goal: Patient will remain free from injury. Outcome: Progressing Problem: Daily Care & Potential Self-Care Deficit Goal: Patient's daily care needs are met. Outcome: Progressing Problem: Risk for Impaired Physical Mobility Goal: Patient will maintain optimal mobility level. Outcome: Progressing Problem: Knowledge Deficit Goal: Patient & caregiver will demonstrate understanding. Outcome: Progressing Problem: Discharge Barriers Goal: Patient's discharge needs are met. Outcome: Progressing Problem: Alteration in Health Maintenance Goal: Patient will maintain management & treatment regimen. Outcome: Progressing Problem: Risk for Impaired Skin Integrity Goal: Patient will maintain & improve skin integrity. Outcome: Progressing Problem: Risk for Fluid & Electrolyte Imbalance Goal: Patient will achieve & maintain fluid & electrolyte balance. Outcome: Progressing Problem: Potential for Alteration in Nutrition Goal: Patient will maintain adequate nutritional intake. Outcome: Progressing Problem: Risk for Infection Goal: Patient will remain free from infection. Outcome: Progressing Problem: Potential for Decreased Cardiac Output Goal: Patient will maintain adequate cardiac output. Outcome: Progressing Goal: Patient will have absence or resolution of arrhythmias. Outcome: Progressing Problem: Potential for Decreased Cardiac Tissue Perfusion Goal: Patient will be free of chest pain & access site discomfort. Outcome: Progressing Problem: Ineffective Peripheral Tissue Perfusion Goal: Patient will maintain adequate perfusion of cath extremity. Outcome: Progressing Problem: Potential for Bleeding Goal: Patient will be free from bleeding at insertion site. Outcome: Progressing Problem: Potential for Infection Goal: Signs & symptoms of infection will be decreased or avoided. Outcome: Progressing Goal: Aseptic care of all invasive lines & tubes will be maintained. Outcome: Progressing Problem: Knowledge Deficit Goal: Patient & caregiver will demonstrate understanding. Outcome: Progressing Problem: Actual & Potential for Falls Goal: Patient will remain free of falls. Outcome: Progressing Problem: Actual & Potential for Impaired Skin Integrity Goal: Patient will maintain skin integrity. Outcome: Progressing Goal: Patient will maintain adequate nutritional intake. Outcome: Progressing Clinical Goal(s): discontinue un needed lined (01/30/24 0600) Possible barriers to meeting goal(s)/advancing plan of care: pain Stability of the patient: Moderately unstable - medium risk of patient condition declining or worsening Summary regarding today's goal(s): Met: map maintained greater then 65 per shift Recommendations: deline ans tube when possible * Progress Notes - Post-Op Global - Aravind Rust MD - 01/30/2024 12:48 AM EDT PROGRESS NOTE - CARDIAC SURGERY [facility] [place] [address] Name: Pasha Castro Jr. Location: [facility] [place] [facility] Date: 01/30/2024 Time: 12:48 AM OPERATION: CABG X 4 (JOHNSON to LAD; SVG to RAMUS, OM, LPDA), AVR with 25mm Inspiris Valve SURGEON: Aravind Rust MD POD#: 1 PATIENT ISSUES/EVENTS: Arrived from OR on small amount of Levo which was quickly weaned off. Extubated routinely. No issues overnight. PHYSICAL EXAM: General: no acute distress Heart Exam: regular rate and rhythm and no murmur, gallops, or rubs Lungs: normal respirations Abdominal Exam: abdomen soft, non-tender, and normal active bowel sounds Extremities: warm, dry, well perfused, and no edema Incision: sternotomy - clean, dry and intact, vein harvest site - clean, dry and intact Neurological: alert Pulses: radial and dorsalis pedis CURRENT CORE CARDIAC MEDICATIONS: Beta Manuel: no, explain -- low BP do not allow ASA: yes Statin: yes EVELIA-Inhibitor / ARB: no, explain -- normal LVEF POSTOPERATIVE COMPLICATIONS: acute post op blood loss anemia ADDITIONAL PROCEDURES: none ASSESSMENT/PLAN: Cardiovascular: -NSR, rate 80-90s, SBP 110s -CI > 3.0, SVO2 70s -Pressors: None -Beta manuel: Not yet -Statin: Crestor 20mg -Pre-op EF 60% -D/c swan and arterial line in AM -Central Line(s): Yes, reason: Hemodynamic monitoring -Pacer Wires: yes Pulmonary: -Extubated routinely -Satting well on 4L NCO2 -Daily CXR -Aggressive pulmonary toilet -Chest Tubes/Oleksandr Drains: Yes: drainage 25-50cc/hr and on suction Chronic Issues: -ALIE (not on CPAP) GI: -Diet: Consistent carb -Bowel regimen -> no BM since surgery -EPIC KALEIDOSCOPE ANALYST Prilosec for GI prophylaxis /Renal: -Pre-op renal function normal, last Cr 0.7 -Collazo: Yes, reason: fluid monitoring and diuresis -IV Lasix 40mg prn Hematology: -Hgb 9.5, plt 83 -SQ Heparin held for low platelets -Aspirin 81mg -Blood products: 2 FFP, 2 cryo, 1 platelet, and DDAVP Chronic Issues: -CLL Neuro/P.T./O.T.: -Neurologically intact -Pain controlled -OOB in AM -PT/OT consults -Increase activity as tolerated Infectious Disease: -Afebrile, WBC 54.10 (CLL) -Post-op Ancef x 5 doses -Pre-op urine culture negative -Pre-op nasal culture indeterminate - given Bactroban and Vanco Endo: -Insulin gtt Chronic Issues: -DM2 (A1C 7.5) on Metformin, Farxiga, Prandin, and Ozempic Plan: -Start beta manuel as hemodynamics allow -D/c swan and arterial line in AM -Advance diet -OOB as tolerated, PT/OT consults Jacki Jansen PA-C 01/30/2024 12:56 AM Stable D/c swan, art line Pulmonary toilet BB as tolerated * Ancillary Progress Note - Kyrie Alvarez, MESSAGE AND DELIVERY SERVICE PRICER - 01/29/2024 6:24 PM EDT PATIENT DRIVEN PROTOCOL - Respiratory Care Services [facility] [address] Name: Pasha Castro [place]: [facility] H750/A Date: 01/29/2024 Time: 6:25 PM Patient Driven Protocol Summary: Initial evaluation performed. This Treatment Plan and medications will be reviewed by the Primary Care Team for any contraindications. Respiratory Care Treatment Plan Pulmonary Volume Expansion Therapy: Incentive Spirometry BID to prevent or treat alveolar consolidation and atelectasis. Additional Pulmonary Volume Expansions: EzPAP Treatment: Q6H to prevent or treat alveolar consolidation and atelectasis. Secretion Management Treatment: Flutter Therapy Q6H to enhance mobilization of secretions. The patient will be re-evaluated: within 48 hours. The Triage Level is: (Assessment Score = 11-15) Level 3. Triage Level Definitions: Level 1 Severe Respiratory/Airway Compromise Level 2 Moderate Respiratory/Airway Compromise or high risk for pulmonary complications Level 3 Mild Respiratory/Airway Compromise or moderate risk for pulmonary complications Level 4 Episodic Respiratory/Airway Compromise or low risk for pulmonary complications Level 5 No Respiratory/Airway Compromise Triage 1 Triage 2 Triage 3 Triage 4 Triage 5 greater than 20 16 - 20 11 - 15 6 - 10 0 - 5 Medical Record Assessment Clinical Findings Pulmonary Status: 0 - No Smoking or quit greater than 10 years ago Surgical Status: 3 - Thoracic or Upper Abdominal Chest X-Ray: 2 - Infiltrates and/or Atelectasis Assessment Score: 5 Patient Assessment Clinical Findings Respiratory Pattern: 0 - RR 12 - 20; Patient only gets breathless with strenuous exercise. Breath Sounds: 2 - Diminished bilaterally Cough Effectiveness: 2 - Weak non-productive Sputum Production: 0 - No sputum production Level of Activity: 1 - Ambulatory with assist O2 needed to keep SpO2 greater than or equal to 92%: 2 - Oxygen 4-6 LPM or FiO2 35-50% Assessment Score: 7 Total Assessment Score: 12 Breath Sounds: Inspiratory and expiratory clear and diminished bilaterally.. Cough and Sputum: An effective cough produced no sputum. CXR: Patient intubated at this time: IMPRESSION 1. No enteric tube is seen. 2. Bilateral atelectatic changes with a questionable small right pleural effusion. 3. Lines and tubes, as above.. Vital Signs: Resp: 16 (01/29/24 1800) Pulse: 95 (01/29/24 1800) Temp: 37.3 C (99.1 F) (01/29/24 1617) BP: 97/54 (01/29/24 1433) SpO2: 100 % (05/23/24 1800) PFT: Minimal Predicted IC: 1.1 L. Inspiratory capacity: 1.0 L. Primary Service: Cardiac Surgery. Admitting Diagnosis: Nonrheumatic aortic valve stenosis [I35.0] Coronary artery disease of [place] artery of [place] heart with stable angina pectoris (HCC) [I25.118] Pulmonary Diagnosis: CAD and ALIE. Prescriptions/Home Medications/Durable Medical Equipment: None. Recommended New home medications/durable medical equipment/outpatient pulmonary/sleep referral None. documented in this encounter Plan of Treatment Upcoming Encounters Date Type Department Care Team (Late st Contact Info) Description 02/26/2024 11:00 AM EDT Office Visit Pharmacy, [place] [address] [place] [address] [place] [address] [place] [address] 02/26/2024 11:20 AM EDT Office Visit [facility], [place] [address] [place] [facility] [place] [phone] Winston Luna MD [address] [place] [address] 05/12/2024 9:50 AM EDT Laboratory Laboratory, [place] [address] [place] [address] [facility] [address] [place] [address] 05/19/2024 10:30 AM EDT Office Visit Hematology/Oncology Johnathan Melani [place] [address] [place] [id number] Estrella Bull MD [address] [place] [address] [place] [id number] 07/23/2024 1:00 PM EST Office Visit Dermatology [place] Malini Macdonald [address] [facility] [place] [address] Tay Alejandra MD [address] [facility] [place] [address] Scheduled Procedures Name Priority Associated Diagnoses Date/Ti me COLONOSCOPY FLEXIBLE PROXIMAL DIAGNOSTIC Recall History of colon polyps Scheduled Referrals Name Type Priority Associated Diagnoses Orde r Schedule CARDIAC REHAB REFERRAL OP Referral Within 30 days (routine) Coronary artery disease of [place] artery of [place] heart with stable angina pectoris (HCC) Valvular heart disease S/P CABG (coronary artery bypass graft) S/P AVR (aortic valve replacement) Ordered: 02/01/2024 NUTRITION-CLINICAL DIETITIAN REFERRAL OP Referral Within 30 days (routine) Coronary artery disease of [place] artery of [place] heart with stable angina pectoris (HCC) S/P CABG (coronary artery bypass graft) S/P AVR (aortic valve replacement) Nonrheumatic aortic valve stenosis Ordered: 02/01/2024 Health Maintenance Due Date Last Done Comments Cologuard 2000 Fecal Occult Blood Test 2000 Sigmoidoscopy 2000 Depression Screening 10/16/2023 10/16/2022 COVID-19 Vaccine ( season) 2023 07/21/2023, 06/26/2022, [...] 02/01/2025 02/02/2024, 01/07, 01/31/2024, Additional history exists DTaP,Tdap,and Td Vaccines (3 - Td or [...] this encounter Medical Devices Implanted Type Area Hazardous Materials Tanker Driver Device Identifier Shelf Expiration Date Model / Serial / Lot Mesh Plug Prefix [id number] [id number] - [id number] Implanted:Qty: 1 on 06/17/2016 by Nehemiah Guevara DO at OR [facility] Left: Groin CR BARD : DAVOL 04/07/2019 [id number] / / [id number] Prime Fenestrated Screw Implanted:Qty: 4 on 12/28/2020 by Nehemiah Neal III, MD at [place] [facility] N/A: Back 12/28/2021 [id number] / / Prime Fenestrrated Screw Implanted:Qty: 6 on 12/28/2020 by Nehemiah Neal III, MD at [place] [facility] N/A: Back 12/28/2021 [id number] / / Description:VIPER PRIME X TA B 7 X 50 MM TI Screw Set Sng Inner [id number] - [id number] Implanted:Qty: 10 on 12/28/2020 by Nehemiah Neal III, MD at [place] [facility] N/A: Back JNJ : [employer] 12/28/2021 [id number] / / Roxi Implanted:Qty: 2 on 12/28/2020 by Nehemiah Neal III, MD at OR [facility] N/A: Back 12/28/2021 [id number] / / Description:VIPER2 STRAIGHT ROXI 20 MM COCR Patch Hernia Ventralex Sml - [id number] Implanted:Qty: 1 on 01/14/2023 by Kashif Deal MD at OR [facility] N/A: Abdomen CR BARD : DAVOL 07/05/2024 [id number] / / [id number] Suture Steel 6 B&S19 M654g - [id number] Implanted:Qty: 7 on 01/29/2024 by Aravind Rust MD at [place] [facility] N/A: Sternum JNJ : [employer] 07/08/2028 [id number] / / TMMESU Marker Coronary - [id number] Implanted:Qty: 1 on 01/29/2024 by Aravind Rust MD at [place] [facility] N/A: Aorta [employer] 01/05/2027 AM-SD / / [id number] Valve Inspiris Resilia 25mm - [id number] - [id number] Implanted:Qty: 1 on 01/29/2024 by Aravind Rust MD at [place] [facility] N/A: Heart [employer] [id number] 07/13/2027 [id number] / [id number] / [id number] documented as of this encounter Procedures Procedure Name Priority Date/Time Associated Diagnosis Comments GLUCOSE METER, POINT OF CARE BREANNA 02/02/2024 6:25 AM EDT XR CHEST 1 VIEW Routine 02/02/2024 6:20 AM EDT DIFFERENTIAL, AUTOMATED STAT 02/02/20 4:45 AM EDT BASIC METABOLIC PANEL STAT 02/02/2024 4:45 AM EDT CBC STAT 02/02/2024 4:45 AM EDT CBC STAT 02/02/2024 4:45 AM EDT DIFFERENTIAL, TECHNOLOGIST REVIEW Routine 02/02/2024 4:45 AM EDT MAGNESIUM STAT 02/02/2024 4:45 AM EDT GLUCOSE METER, POINT OF CARE BREANNA 02/01/2024 9:53 PM EDT GLUCOSE METER, POINT OF CARE BREANNA 02/01/2024 4:31 PM EDT GLUCOSE METER, POINT OF CARE BREANNA 02/01/2024 11:06 AM EDT GLUCOSE METER, POINT OF CARE BREANNA 02/01/2024 6:49 AM EDT XR CHEST 1 VIEW Routine 02/01/2024 6:06 AM EDT DIFFERENTIAL, AUTOMATED STAT 02/01/20 4:53 AM EDT BASIC METABOLIC PANEL STAT 02/01/2024 4:53 AM EDT CBC STAT 02/01/2024 4:53 AM EDT CBC STAT 02/01/2024 4:53 AM EDT DIFFERENTIAL, TECHNOLOGIST REVIEW Routine 02/01/2024 4:53 AM EDT MAGNESIUM STAT 02/01/2024 4:53 AM EDT GLUCOSE METER, POINT OF CARE BREANNA 01/31/2024 9:37 PM EDT GLUCOSE METER, POINT OF CARE BREANNA 01/31/2024 3:58 PM EDT BASIC METABOLIC PANEL Routine 01/31/2024 1:54 PM EDT GLUCOSE METER, POINT OF CARE BREANNA 01/31/2024 11:00 AM EDT GLUCOSE METER, POINT OF CARE BREANNA 01/31/2024 6:32 AM EDT XR CHEST 1 VIEW Routine 01/31/2024 6:01 AM EDT DIFFERENTIAL, AUTOMATED STAT 01/31/20 4:32 AM EDT BASIC METABOLIC PANEL STAT 01/31/2024 4:32 AM EDT CBC STAT 01/31/2024 4:32 AM EDT CBC STAT 01/31/2024 4:32 AM EDT DIFFERENTIAL, TECHNOLOGIST REVIEW Routine 01/31/2024 4:32 AM EDT MAGNESIUM STAT 01/31/2024 4:32 AM EDT GLUCOSE METER, POINT OF CARE [facility] 01/31/2024 3:29 AM EDT GLUCOSE METER, POINT OF CARE [facility] 01/31/2024 2:21 AM EDT GLUCOSE METER, POINT OF CARE [facility] 01/31/2024 1:54 AM EDT GLUCOSE METER, POINT OF CARE [facility] 01/31/2024 1:52 AM EDT GLUCOSE METER, POINT OF CARE [facility] 01/31/2024 1:37 AM EDT GLUCOSE METER, POINT OF CARE [facility] 01/30/2024 11:40 PM EDT GLUCOSE METER, POINT OF CARE [facility] 01/30/2024 10:40 PM EDT GLUCOSE METER, POINT OF CARE [facility] 01/30/2024 4:56 PM EDT GLUCOSE METER, POINT OF CARE [facility] 01/30/2024 4:11 PM EDT GLUCOSE METER, POINT OF CARE BRE[facility] 01/30/2024 1:40 PM EDT GLUCOSE METER, POINT OF CARE [facility] 01/30/2024 11:24 AM EDT GLUCOSE METER, POINT OF CARE BREAN[facility] 01/30/2024 8:45 AM EDT GLUCOSE METER, POINT OF CARE [facility] 01/30/2024 8:12 AM EDT XR CHEST 1 VIEW Routine 01/30/2024 6:05 AM EDT GLUCOSE METER, POINT OF CARE BREANNA 01/30/2024 4:54 AM EDT HC ECG TRACING ONLY Routine 01/30/2024 4 :02 AM EDT Status post surgery DIFFERENTIAL, AUTOMATED STAT 01/30/20 3:11 AM EDT BASIC METABOLIC PANEL STAT 01/30/2024 3:11 AM EDT O2 SATURATION, VENOUS STAT 01/30/2024 3:11 AM EDT CBC STAT 01/30/2024 3:11 AM EDT CBC STAT 01/30/2024 3:11 AM EDT DIFFERENTIAL, TECHNOLOGIST REVIEW Routine 01/30/2024 3:11 AM EDT MAGNESIUM STAT 01/30/2024 3:11 AM EDT GLUCOSE METER, POINT OF CARE BREANNA 01/30/2024 2:27 AM EDT GLUCOSE METER, POINT OF CARE BRE[facility] 01/29/2024 11:34 PM EDT GLUCOSE METER, POINT OF CARE BREANNA 01/29/2024 9:02 PM EDT WHOLE BLOOD PROFILE, ARTERIAL STAT 01/29/2024 6:58 PM EDT BASIC METABOLIC PANEL STAT 01/29/2024 6:56 PM EDT CBC STAT 01/29/2024 6:56 PM EDT MAGNESIUM STAT 01/29/2024 6:56 PM EDT GLUCOSE METER, POINT OF CARE BREANNA 01/29/2024 5:51 PM EDT XR ABDOMEN 1 VIEW Routine 01/29/2024 4:2 6 PM EDT TRANSFUSE PLATELETS STAT 01/29/2024 4 :17 PM EDT WHOLE BLOOD PROFILE, ARTERIAL STAT 01/29/2024 3:58 PM EDT GLUCOSE METER, POINT OF CARE BRAENNA 01/29/2024 3:57 PM EDT TRANSFUSE PLASMA STAT 01/29/2024 3:51 PM EDT TRANSFUSE PLASMA STAT 01/29/2024 3:21 PM EDT TRANSFUSE CRYOPRECIPITATE STAT 01/29/2024 2:57 PM EDT WHOLE BLOOD PROFILE, ARTERIAL STAT 01/29/2024 2:51 PM EDT TRANSFUSE CRYOPRECIPITATE STAT 01/29/2024 2:33 PM EDT GLUCOSE METER, POINT OF CARE BREANNA 01/29/2024 2:09 PM EDT XR ABDOMEN 1 VIEW STAT 01/29/2024 1:5 5 PM EDT XR CHEST 1 VIEW STAT 01/29/2024 1:55 PM EDT WHOLE BLOOD PROFILE, ARTERIAL STAT 01/29/2024 1:25 PM EDT TEG (THOMROBOELASTOGRAPH) PANEL STAT 01/29/2024 1:21 PM EDT TEG (THROMBOELASTOGRAPH), HEPARINASE STAT 01/29/2024 1:21 PM EDT TEG (THROMBOELASTOGRAPH) STAT 01/29/2024 1:21 PM EDT BASIC METABOLIC PANEL STAT 01/29/2024 1:21 PM EDT HEPARIN, UNFRACTIONATED STAT 01/29/20 1:21 PM EDT ANTITHROMBIN III ACTIVITY STAT 01/29/2024 1:21 PM EDT O2 SATURATION, VENOUS STAT 01/29/2024 1:21 PM EDT PT INR STAT 01/29/2024 1:21 PM EDT APTT STAT 01/29/2024 1:21 PM EDT FIBRINOGEN STAT 01/29/2024 1:21 PM EDT CBC STAT 01/29/2024 1:21 PM EDT MAGNESIUM STAT 01/29/2024 1:21 PM EDT BLOOD GAS WITH CHEMISTRY, POINT OF CARE BREANNA 01/29/2024 1:16 PM EDT MN ECG ROUTINE ECG W/LEAST 12 LDS I&R ONLY STAT 01/29/2024 1:15 PM EDT Status post surgery HC FRESH FROZEN PLASMA W/I 8 HRS EA UNIT STAT 01/29/2024 1:10 PM EDT HC CRYOPRECIPITATE EACH UNIT STAT 01/29/2024 1:00 PM EDT HC PLATELETS PHERESIS PATH RED EA UNIT STAT 01/29/2024 1:00 PM EDT TEG (THOMROBOELASTOGRAPH) PANEL STAT 01/29/2024 12:33 PM EDT TEG (THROMBOELASTOGRAPH), HEPARINASE STAT 01/29/2024 12:33 PM EDT BLOOD GAS, ARTERIAL STAT 01/29/2024 1 2:33 PM EDT TEG (THROMBOELASTOGRAPH) STAT 01/29/2024 12:33 PM EDT PT INR STAT 01/29/2024 12:33 PM EDT FIBRINOGEN STAT 01/29/2024 12:33 PM EDT CBC STAT 01/29/2024 12:33 PM EDT DIFFERENTIAL, TECHNOLOGIST REVIEW Routine 01/29/2024 12:33 PM EDT BLOOD GAS WITH CHEMISTRY, POINT OF CARE BREANNA 01/29/2024 12:25 PM EDT HC 2D [facility]/REPORT I&A Routine 01/29/2024 12:22 PM EDT Valvular heart disease ACT, POINT OF CARE BREANNA 01/29/2024 12 :19 PM EDT ACT, POINT OF CARE BREANNA 01/29/2024 11 :42 AM EDT BLOOD GAS WITH CHEMISTRY, POINT OF CARE BREANNA 01/29/2024 11:24 AM EDT ACT, POINT OF CARE BREANNA 01/29/2024 11 :23 AM EDT ACT, POINT OF CARE BREANNA 01/29/2024 10 :58 AM EDT ACT, POINT OF CARE BREANNA 01/29/2024 10 :41 AM EDT ACT, POINT OF CARE BREANNA 01/29/2024 10 :31 AM EDT ACT, POINT OF CARE BREANNA 01/29/2024 10 :12 AM EDT TEG (THOMROBOELASTOGRAPH) PANEL Routine 01/29/2024 9:56 AM EDT TEG (THROMBOELASTOGRAPH), HEPARINASE Routine 01/29/2024 9:56 AM EDT WHOLE BLOOD PROFILE, VENOUS Routine 01/29/2024 9:56 AM EDT BLOOD GAS, ARTERIAL Routine 01/29/2024 9 :56 AM EDT TEG (THROMBOELASTOGRAPH) Routine 01/29/2024 9:56 AM EDT PLT Routine 01/29/2024 9:56 AM EDT FIBRINOGEN Routine 01/29/2024 9:56 AM EDT BLOOD GAS WITH CHEMISTRY, POINT OF CARE BREANNA 01/29/2024 9:50 AM EDT ACT, POINT OF CARE BREANNA 01/29/2024 9: 49 AM EDT ACT, POINT OF CARE BREANNA 01/29/2024 9: 26 AM EDT ACT, POINT OF CARE BREANNA 01/29/2024 9: 26 AM EDT HC 2D BUFFY PROBE [facility]CM[facility]/REPORT I&A Routine 01/29/2024 9:00 AM EDT Valvular heart disease BLOOD GAS WITH CHEMISTRY, POINT OF CARE BREANNA 01/29/2024 8:28 AM EDT ACT, POINT OF CARE BREANNA 01/29/2024 8: 27 AM EDT Replacement Aortic Valve, Bypass with Prosthetic Valve 01/29/2024 6:30 AM EDT Nonrheumatic aortic valve stenosis Coronary artery disease of [place] artery of [place] heart with stable angina pectoris (HCC) ENDO,VIDEO ASSIST HARVEST OLEG 01/29/2024 6:30 AM EDT Nonrheumatic aortic valve stenosis Coronary artery disease of [place] artery of [place] heart with stable angina pectoris (HCC) CABG, ARTERY-VEIN, FOUR 01/29/20 6:30 AM EDT Nonrheumatic aortic valve stenosis Coronary artery disease of [place] artery of [place] heart with stable angina pectoris (HCC) CABG, ARTERIAL, SINGLE 6:30 AM EDT Nonrheumatic aortic valve stenosis Coronary artery disease of [place] artery of [place] heart with stable angina pectoris ([facility]) GLUCOSE METER, POINT OF CARE BREANNA 01/29/2024 6:21 AM EDT PREPARE PLASMA STAT 01/29/2024 5:50 AM EDT HC COMPATIBILITY ELECTRONIC CROSSMATCH STAT 01/29/2024 5:50 AM EDT documented in this encounter Results * (ABNORMAL) GLUCOSE METER, POINT OF CARE (02/02/2024 6:25 AM EDT) Glucose Meter 146(H) 70 - 120 mg/dL 02/02/2024 6:30 AM EDT [facility] [employer] Blood Whole blood specimen / Unknown 02/02/2024 6:25 AM EDT 02/02/2024 6:30 AM EDT Aravind Rust MD LAB POINT O F CARE TEST DOCKED DEVICE UNSOLICITED RESULTS [facility] [address] [place] [address] * XR CHEST 1 VIEW (02/02/2024 6:20 AM EDT) Anatomical Region Laterality Modality Chest Computed Radiogr aphy 02/02/2024 8:31 AM EDT Impressions 02/02/2024 8:29 AM EDT IMPRESSION: Similar layering right pleural effusion with adjacent atelectasis. Narrative 02/02/2024 8:29 AM EDT EXAM: XR CHEST 1 VIEW - 02/02/2024 6:20 am HISTORY: follow up postop open heart TECHNIQUE: Frontal radiograph of the chest was acquired. COMPARISON: CXR dated 02/01/2024 FINDINGS: Catheters/tubes/devices/foreign bodies: Interval removal of the right jugular vascular sheath. Replaced aortic valve. Sternotomy wires. Partially visualized spinal fixation hardware. Similar layering right pleural effusion with adjacent atelectasis. Left basilar atelectesis. Cardiomediastinal silhouette is stable. Degenerative osseous changes. Procedure Note Anurag Billy, DO - 02/02/2024 EXAM: XR CHEST 1 VIEW - 02/02/2024 6:20 am HISTORY: follow up postop open heart TECHNIQUE: Frontal radiograph of the chest was acquired. COMPARISON: CXR dated 02/01/2024 FINDINGS: Catheters/tubes/devices/foreign bodies: Interval removal of the rightjugular vascular sheath. Replaced aortic valve. Sternotomy wires.Partially visualized spinal fixation hardware. Similar layering right pleural effusion with adjacent atelectasis. Leftbasilar atelectesis. Cardiomediastinal silhouette is stable. Degenerative osseous changes. IMPRESSION IMPRESSION: Similar layering right pleural effusion with adjacent atelectasis. [facility] (RAD GENER AL) * (ABNORMAL) DIFFERENTIAL, TECHNOLOGIST REVIEW (02/02/2024 4:45 AM EDT) WBC 51.92(HH) 4.00 - 10.80 K/uL 02/02/2024 6:41 AM EDT [facility] Neutrophils % 6.5(L) 40.0 - 75.0 % 02/02/2024 6:41 AM EDT [facility] Lymphocytes % 93.0(H) 18.0 - 42.0 % 02/02/2024 6:41 AM EDT [facility] Comment: Known CLL. Monocytes % 0.5(L) 1.0 - 11.0 % 02/02/2024 6:41 AM EDT [facility] Absolute Neutrophils 3.37 1.80 - 7.70 K/uL 02/02/2024 6:41 AM EDT [facility] Absolute Lymphocytes 48.29(H) 1.00 - 4.80 K/uL 02/02/2024 6:41 AM EDT [facility] Absolute Monocytes 0.26 0.00 - 1.10 K/uL 02/02/2024 6:41 AM EDT [facility] Smudge Cells Present(A ) None Seen 02/02/2024 6:41 AM EDT [facility] Blood Venous blood specimen / Unknown Venipuncture / Unknown 02/02/2024 4:45 AM EDT 02/02/2024 5:21 AM EDT Jacki LATHAM-Marino LAB BLOOD OR DERABLES Performing Organization Address [facility]/ZIP Co de Phone Number [facility] [address] [place] [address] * DIFFERENTIAL, AUTOMATED (02/02/2024 4:45 AM EDT) Blood Venous blood specimen / Unknown Venipuncture / Unknown 02/02/2024 4:45 AM EDT 02/02/2024 5:21 AM EDT Jacki LATHAM-Marino LAB BLOOD OR DERABLES Performing Organization Address [facility] Co de Phone Number [facility] [address] [place] [address] * (ABNORMAL) CBC (02/02/2024 4:45 AM EDT) WBC 51.92(HH) 4.00 - 10.80 K/uL 02/02/2024 5:38 AM EDT [facility] RBC 2.53 4.50 - 5.25 M/uL 02/02/2024 5:38 AM EDT [facility] HGB 8.2(L) 14.0 - 16.8 g/dL 02/02/2024 5:38 AM EDT [facility] HCT 25.3(L) 40.0 - 48.4 % 02/02/2024 5:38 AM EDT [facility] MCV 100.0 82.0 - 99.5 fL 02/02/2024 5:38 AM EDT LABORATORY [facility] MCH 32.4 27.0 - 34.0 pg 02/02/2024 5:38 AM EDT LABORATORY [facility] MCHC 32.4 32.0 - 36.0 g/dL 02/02/2024 5:38 AM EDT LABORATORY [facility] RDW 15.3 11.5 - 15.5 % 02/02/2024 5:38 AM EDT LABORATORY [facility] PLT 90(L) 140 - 400 K/uL 02/02/2024 5:38 AM EDT LABORATORY [facility] MPV 11.4 6.6 - 11.1 fL 02/02/2024 5:38 AM EDT [facility] nRBCs 0 <=0 /100 WBCs 02/02/2024 5:38 AM EDT [facility] Blood Venous blood specimen / Unknown Venipuncture / Unknown 02/02/2024 4:45 AM EDT 02/02/2024 5:21 AM EDT Jacki Jansen PA-C LAB BLOOD OR DERABLES Performing Organization Address City/[facility] Co de Phone Number LABORATORY [facility] [address] [place] [address] * MAGNESIUM (02/02/2024 4:45 AM EDT) Magnesium 2.5 1.5 - 2.6 mg/dL 02/02/2024 5:51 AM EDT [facility] Blood Venous blood specimen / Unknown Venipuncture / Unknown 02/02/2024 4:45 AM EDT 02/02/2024 5:21 AM EDT Jacki Jansen PA-C LAB BLOOD OR DERABLES Performing Organization Address [facility] Co de Phone Number LABORATORY [facility] [address] [place] [address] * (ABNORMAL) BASIC METABOLIC PANEL (02/02/2024 4:45 AM EDT) BUN 54(H) 6 - 20 mg/dL 02/02/2024 5:51 AM EDT [facility] Creatinine 0.9 0.6 - 1.2 mg/dL 02/02/2024 5:51 AM EDT [facility] Estimated Glomerular Filtration Rate 89 >=60 mL/min 02/02/2024 5:51 AM EDT [facility] Comment:eGFR is calculated b ased on the CKD-EPI 2020 equation Sodium 132(L) 135 - 146 mmol/L 02/02/2024 5:51 AM EDT [facility] Potassium 4.6 3.5 - 5.1 mmol/L 02/02/2024 5:51 AM EDT [facility] Chloride 97(L) 98 - 107 mmol/L 02/02/2024 5:51 AM EDT [facility] CO2 24 22 - 32 mmol/L 02/02/2024 5:51 AM EDT [facility] Anion Gap 11 7 - 15 mmol/L 02/02/2024 5:51 AM EDT [facility] Glucose 153(H) 70 - 120 mg/dL 02/02/2024 5:51 AM EDT [facility] Calcium 8.2(L) 8.4 - 10.2 mg/dL 02/02/2024 5:51 AM EDT LABORATORY C Blood Venous blood specimen / Unknown Venipuncture / Unknown 02/02/2024 4:45 AM EDT 02/02/2024 5:21 AM EDT Jacki Jansen PA-C LAB BLOOD OR DERABLES Performing Organization Address City/[facility] de Phone Number LABORATORY [facility] [address] [place] [address] * (ABNORMAL) GLUCOSE METER, POINT OF CARE (02/01/2024 9:53 PM EDT) [facility] Glucose Meter 181(H) 70 - 120 mg/dL 02/01/2024 9:58 PM EDT [facility] Blood Whole blood specimen / Unknown 02/01/2024 9:53 PM EDT 02/01/2024 9:58 PM EDT Aravind uRst MD LAB POINT O F CARE TEST DOCKED DEVICE UNSOLICITED RESULTS Performing Organization Address City/[facility]/ZIP Co de Phone Number [facility] [address] [place] [address] * (ABNORMAL) GLUCOSE METER, POINT OF CARE (02/01/2024 4:31 PM EDT) Glucose Meter 172(H) 70 - 120 mg/dL 02/01/2024 4:35 PM EDT [facility] [employer] Blood Whole blood specimen / Unknown 02/01/2024 4:31 PM EDT 02/01/2024 4:35 PM EDT Aravind Rust MD LAB POINT O F CARE TEST DOCKED DEVICE UNSOLICITED RESULTS Performing Organization Address [facility] Co de Phone Number [facility] [address] [place] [address] * (ABNORMAL) GLUCOSE METER, POINT OF CARE (02/01/2024 11:06 AM EDT) Glucose Meter 206(H) 70 - 120 mg/dL 02/01/2024 11:11 AM EDT [facility] Blood Whole blood specimen / Unknown 02/01/2024 11:06 AM EDT 02/01/2024 11:11 AM EDT Aravind Rust MD LAB POINT O F CARE TEST DOCKED DEVICE UNSOLICITED RESULTS Performing Organization Address [facility] Co de Phone Number [facility] [address] [place] [address] * (ABNORMAL) GLUCOSE METER, POINT OF CARE (02/01/2024 6:49 AM EDT) Glucose Meter 159(H) 70 - 120 mg/dL 02/01/2024 6:51 AM EDT [facility] Blood Whole blood specimen / Unknown 02/01/2024 6:49 AM EDT 02/01/2024 6:51 AM EDT Aravind Rust MD LAB POINT O F CARE TEST DOCKED DEVICE UNSOLICITED RESULTS [facility] [address] [place] [address] * XR CHEST 1 VIEW (02/01/2024 6:06 AM EDT) Anatomical Region Laterality Modality Chest Computed Radiogr aphy 02/01/2024 10:0 4 AM EDT Impressions 02/01/2024 10:01 AM EDT IMPRESSION: Similar layering right pleural effusion. Narrative 02/01/2024 10:01 AM EDT EXAM: XR CHEST 1 VIEW - 02/01/2024 6:06 am HISTORY: follow up postop open heart TECHNIQUE: Frontal radiograph of the chest was acquired. COMPARISON: CXR dated 01/31/2024 FINDINGS: Catheters/tubes/devices/foreign bodies: Interval removal of the mediastinal and pleural drains. Right jugular vascular sheath in similar position. Sternotomy wires. Replaced aortic valve. Partially visualized lumbar fixation hardware. Similar layering right pleural effusion. Bibasilar atelectasis. No pneumothorax. Cardiomediastinal silhouette is stable. Degenerative osseous changes. Procedure Note Anurag Billy DO - 02/01/2024 EXAM: XR CHEST 1 VIEW - 02/01/2024 6:06 am HISTORY: follow up postop open heart TECHNIQUE: Frontal radiograph of the chest was acquired. COMPARISON: CXR dated 01/31/2024 FINDINGS: Catheters/tubes/devices/foreign bodies: Interval removal of themediastinal and pleural drains. Right jugular vascular sheath in similarposition. Sternotomy wires. Replaced aortic valve. Partially visualizedlumbar fixation hardware. Similar layering right pleural effusion. Bibasilar atelectasis. Nopneumothorax. Cardiomediastinal silhouette is stable. Degenerative osseous changes. IMPRESSION IMPRESSION: Similar layering right pleural effusion. [facility] (RAD GENER AL) * (ABNORMAL) DIFFERENTIAL, TECHNOLOGIST REVIEW (02/01/2024 4:53 AM EDT) WBC 50.35(HH) 4.00 - 10.80 K/uL 02/01/2024 8:11 AM EDT [facility] Neutrophils % 12.0(L) 40.0 - 75.0 % 02/01/2024 8:11 AM EDT [facility] Lymphocytes % 87.5(H) 18.0 - 42.0 % 02/01/2024 8:11 AM EDT [facility] Monocytes % 0.5(L) 1.0 - 11.0 % 02/01/2024 8:11 AM EDT [facility] Absolute Neutrophils 6.04 1.80 - 7.70 K/uL 02/01/2024 8:11 AM EDT [facility] Absolute Lymphocytes 44.06(H) 1.00 - 4.80 K/uL 02/01/2024 8:11 AM EDT [facility] Absolute Monocytes 0.25 0.00 - 1.10 K/uL 02/01/2024 8:11 AM EDT [facility] Smudge Cells Present(A ) None Seen 02/01/2024 8:11 AM EDT [facility] Blood Venous blood specimen / Unknown Venipuncture / Unknown 02/01/2024 4:53 AM EDT 02/01/2024 5:37 AM EDT Jacki Jansen PA-C LAB BLOOD OR DERABLES Performing Organization Address [facility] de Phone Number LABORATORY [facility] [address] [place] [address] * DIFFERENTIAL, AUTOMATED (02/01/2024 4:53 AM EDT) Blood Venous blood specimen / Unknown Venipuncture / Unknown 02/01/2024 4:53 AM EDT 02/01/2024 5:37 AM EDT Jacki Jansen PA-C LAB BLOOD OR DERABLES Performing Organization Address [facility]/ZIP Co de Phone Number LAB[facility]ATORY [facility] [address] [place] [address] * (ABNORMAL) CBC (02/01/2024 4:53 AM EDT) WBC 50.35(HH) 4.00 - 10.80 K/uL 02/01/2024 5:53 AM EDT [facility] RBC 2.62 4.50 - 5.25 M/uL 02/01/2024 5:53 AM EDT [facility] HGB 8.4(L) 14.0 - 16.8 g/dL 02/01/2024 5:53 AM EDT [facility] HCT 26.2(L) 40.0 - 48.4 % 02/01/2024 5:53 AM EDT [facility] MCV 100.0 82.0 - 99.5 fL 02/01/2024 5:53 AM EDT [facility] MCH 32.1 27.0 - 34.0 pg 02/01/2024 5:53 AM EDT [facility] MCHC 32.1 32.0 - 36.0 g/dL 02/01/2024 5:53 AM EDT [facility] RDW 15.0 11.5 - 15.5 % 02/01/2024 5:53 AM EDT [facility] PLT 79(L) 140 - 400 K/uL 02/01/2024 5:53 AM EDT [facility] MPV 11.3 6.6 - 11.1 fL 02/01/2024 5:53 AM EDT [facility] nRBCs 0 <=0 /100 WBCs 02/01/2024 5:53 AM EDT [facility] Blood Venous blood specimen / Unknown Venipuncture / Unknown 02/01/2024 4:53 AM EDT 02/01/2024 5:37 AM EDT Jacki Jansen PA-C LAB BLOOD OR DERABLES LAB[facility]ATORY [facility] [address] [place] [address] * MAGNESIUM (02/01/2024 4:53 AM EDT) Magnesium 2.3 1.5 - 2.6 mg/dL 02/01/2024 6:08 AM EDT [facility] Blood Venous blood specimen / Unknown Venipuncture / Unknown 02/01/2024 4:53 AM EDT 02/01/2024 5:37 AM EDT Jacki LATHAM-C LAB BLOOD OR DERABLES [facility] [address] [place] [address] * (ABNORMAL) BASIC METABOLIC PANEL (02/01/2024 4:53 AM EDT) BUN 44(H) 6 - 20 mg/dL 02/01/2024 6:08 AM EDT [facility] Creatinine 1.2 0.6 - 1.2 mg/dL 02/01/2024 6:08 AM EDT [facility] Estimated Glomerular Filtration Rate 67 >=60 mL/min 02/01/2024 6:08 AM EDT [facility] Comment:eGFR is calculated b ased on the CKD-EPI 2020 equation Sodium 132(L) 135 - 146 mmol/L 02/01/2024 6:08 AM EDT [facility] Potassium 4.7 3.5 - 5.1 mmol/L 02/01/2024 6:08 AM EDT [facility] Chloride 99 98 - 107 mmol/L 02/01/2024 6:08 AM EDT [facility] CO2 23 22 - 32 mmol/L 02/01/2024 6:08 AM EDT [facility] Anion Gap 10 7 - 15 mmol/L 02/01/2024 6:08 AM EDT [facility] Glucose 154(H) 70 - 120 mg/dL 02/01/2024 6:08 AM EDT [facility] Calcium 8.2(L) 8.4 - 10.2 mg/dL 02/01/2024 6:08 AM EDT LABORATORY C Blood Venous blood specimen / Unknown Venipuncture / Unknown 02/01/2024 4:53 AM EDT 02/01/2024 5:37 AM EDT Jacki LATHAM-C LAB BLOOD OR DERABLES [facility] [address] [place] [address] * (ABNORMAL) GLUCOSE METER, POINT OF CARE (01/31/2024 9:37 PM EDT) Glucose Meter 155(H) 70 - 120 mg/dL 01/31/2024 9:41 PM EDT [facility] [employer] Blood Whole blood specimen / Unknown 01/31/2024 9:37 PM EDT 01/31/2024 9:41 PM EDT Aravind Rust MD LAB POINT O F CARE TEST DOCKED DEVICE UNSOLICITED RESULTS Performing Organization Address City/[facility]/ZIP Co de Phone Number [address] [address] * (ABNORMAL) GLUCOSE METER, POINT OF CARE (01/31/2024 3:58 PM EDT) Glucose Meter 240(H) 70 - 120 mg/dL 01/31/2024 4:05 PM EDT [facility] [employer] Blood Whole blood specimen / Unknown 01/31/2024 3:58 PM EDT 01/31/2024 4:05 PM EDT Aravind Rust MD LAB POINT O F CARE TEST DOCKED DEVICE UNSOLICITED RESULTS Performing Organization Address City/[facility]/ZIP Co de Phone Number [address] [address] * (ABNORMAL) BASIC METABOLIC PANEL (01/31/2024 1:54 PM EDT) BUN 30(H) 6 - 20 mg/dL 01/31/2024 2:28 PM EDT [facility] Creatinine 1.0 0.6 - 1.2 mg/dL 01/31/2024 2:28 PM EDT LABORATORY C Estimated Glomerular Filtration Rate 82 >=60 mL/min 01/31/2024 2:28 PM EDT LABORATORY C Comment:eGFR is calculated b ased on the CKD-EPI 2020 equation Sodium 133(L) 135 - 146 mmol/L 01/31/2024 2:28 PM EDT [facility] Potassium 5.2(H) 3.5 - 5.1 mmol/L 01/31/2024 2:28 PM EDT LABORATORY C Chloride 97(L) 98 - 107 mmol/L 01/31/2024 2:28 PM EDT [facility] CO2 22 22 - 32 mmol/L 01/31/2024 2:28 PM EDT [facility] Anion Gap 14 7 - 15 mmol/L 01/31/2024 2:28 PM EDT LABORATORY C Glucose 291(H) 70 - 120 mg/dL 01/31/2024 2:28 PM EDT LABORATORY C Calcium 8.2(L) 8.4 - 10.2 mg/dL 01/31/2024 2:28 PM EDT LABORATORY C Blood Venous blood specimen / Unknown Venipuncture / Unknown 01/31/2024 1:54 PM EDT 01/31/2024 2:01 PM EDT Bladimir Thorne PA-C LAB BLOOD ORDERAB LES LABORATORY [facility] [address] [place] [address] * (ABNORMAL) GLUCOSE METER, POINT OF CARE (01/31/2024 11:00 AM EDT) Glucose Meter 255(H) 70 - 120 mg/dL 01/31/2024 11:04 AM EDT [facility] [employer] [facility] Blood Whole blood specimen / Unknown 01/31/2024 11:00 AM EDT 01/31/2024 11:04 AM EDT Aravind Rust MD LAB POINT O F CARE TEST DOCKED DEVICE UNSOLICITED RESULTS [facility] [address] [place] [address] * (ABNORMAL) GLUCOSE METER, POINT OF CARE (01/31/2024 6:32 AM EDT) Glucose Meter 231(H) 70 - 120 mg/dL 01/31/2024 6:34 AM EDT [facility] SPRINGSNess Computing [facility] Blood Whole blood specimen / Unknown 01/31/2024 6:32 AM EDT 01/31/2024 6:34 AM EDT Aravind Rust MD LAB POINT O F CARE TEST DOCKED DEVICE UNSOLICITED RESULTS [facility] [address] [place] [address] * XR CHEST 1 VIEW (01/31/2024 6:01 AM EDT) Anatomical Region Laterality Modality Chest Computed Radiogr aphy 01/31/2024 8:02 AM EDT Impressions 01/31/2024 8:00 AM EDT IMPRESSION: Similar layering right pleural effusion and bibasilar atelectasis. Narrative 01/31/2024 8:00 AM EDT EXAM: XR CHEST 1 VIEW - 01/31/2024 6:01 am HISTORY: follow up postop open heart TECHNIQUE: Frontal radiograph of the chest was acquired. COMPARISON: CXR dated 01/30/2024 FINDINGS: Catheters/tubes/devices/foreign bodies: Right jugular vascular sheath and mediastinal and left pleural drains in similar positions. Sternotomy wires. Replaced aortic valve. Partially visualized lumbar fixation hardware. Similar layering right pleural effusion. Bibasilar atelectasis. Cardiomediastinal silhouette is stable. Degenerative osseous changes. Procedure Note Anurag Billy DO - 01/31/2024 EXAM: XR CHEST 1 VIEW - 01/31/2024 6:01 am HISTORY: follow up postop open heart TECHNIQUE: Frontal radiograph of the chest was acquired. COMPARISON: CXR dated 01/30/2024 FINDINGS: Catheters/tubes/devices/foreign bodies: Right jugular vascular sheath andmediastinal and left pleural drains in similar positions. Sternotomywires. Replaced aortic valve. Partially visualized lumbar fixationhardware. Similar layering right pleural effusion. Bibasilar atelectasis. Cardiomediastinal silhouette is stable. Degenerative osseous changes. IMPRESSION IMPRESSION: Similar layering right pleural effusion and bibasilar atelectasis. [facility] (RAD GENER AL) * (ABNORMAL) DIFFERENTIAL, TECHNOLOGIST REVIEW (01/31/2024 4:32 AM EDT) WBC 58.78(HH) 4.00 - 10.80 K/uL 01/31/2024 6:24 AM EDT [facility] Neutrophils % 7.5(L) 40.0 - 75.0 % 01/31/2024 6:24 AM EDT LAB[facility] Lymphocytes % 91.5(H) 18.0 - 42.0 % 01/31/2024 6:24 AM EDT LAB[facility] Comment: Known CLL. Monocytes % 1.0 1.0 - 11.0 % 01/31/2024 6:24 AM EDT LAB[facility] Absolute Neutrophils 4.41 1.80 - 7.70 K/uL 01/31/2024 6:24 AM EDT LAB[facility] Absolute Lymphocytes 53.78(H) 1.00 - 4.80 K/uL 01/31/2024 6:24 AM EDT LAB[facility] Absolute Monocytes 0.59 0.00 - 1.10 K/uL 01/31/2024 6:24 AM EDT LAB[facility] Smudge Cells Present(A ) None Seen 01/31/2024 6:24 AM EDT [facility] Blood Venous blood specimen / Unknown Venipuncture / Unknown 01/31/2024 4:32 AM EDT 01/31/2024 4:43 AM EDT Jacki Jansen PA-C LAB BLOOD OR DERABLES Performing Organization Address [facility] Co de Phone Number [facility]ORY [facility] [address] [place] [address] * DIFFERENTIAL, AUTOMATED (01/31/2024 4:32 AM EDT) Blood Venous blood specimen / Unknown Venipuncture / Unknown 01/31/2024 4:32 AM EDT 01/31/2024 4:43 AM EDT Ponderakelley Fangino PA-C LAB BLOOD OR DERABLES Performing Organization Address [facility]/ZIP Co de Phone Number [facility]ORY [facility] [address] [place] [address] * (ABNORMAL) CBC (01/31/2024 4:32 AM EDT) WBC 58.78(HH) 4.00 - 10.80 K/uL 01/31/2024 5:34 AM EDT [facility] RBC 2.82 4.50 - 5.25 M/uL 01/31/2024 5:34 AM EDT [facility] HGB 8.8(L) 14.0 - 16.8 g/dL 01/31/2024 5:34 AM EDT [facility] HCT 28.4(L) 40.0 - 48.4 % 01/31/2024 5:34 AM EDT [facility] MCV 100.7 82.0 - 99.5 fL 01/31/2024 5:34 AM EDT [facility] MCH 31.2 27.0 - 34.0 pg 01/31/2024 5:34 AM EDT LAB[facility] MCHC 31.0 32.0 - 36.0 g/dL 01/31/2024 5:34 AM EDT LAB[facility] RDW 14.8 11.5 - 15.5 % 01/31/2024 5:34 AM EDT LAB[facility] PLT 84(L) 140 - 400 K/uL 01/31/2024 5:34 AM EDT LAB[facility] MPV 10.9 6.6 - 11.1 fL 01/31/2024 5:34 AM EDT LAB[facility] nRBCs 0 <=0 /100 WBCs 01/31/2024 5:34 AM EDT [facility] Blood Venous blood specimen / Unknown Venipuncture / Unknown 01/31/2024 4:32 AM EDT 01/31/2024 4:43 AM EDT Jacki Jansen PA-C LAB BLOOD OR DERABLES LAB[facility] [address] [place] [address] * MAGNESIUM (01/31/2024 4:32 AM EDT) Magnesium 2.1 1.5 - 2.6 mg/dL 01/31/2024 5:17 AM EDT LAB[facility] Blood Venous blood specimen / Unknown Venipuncture / Unknown 01/31/2024 4:32 AM EDT 01/31/2024 4:43 AM EDT Jacki Jansen PA-C LAB BLOOD OR DERABLES LABORATORY [facility] [address] [place] [address] * (ABNORMAL) BASIC METABOLIC PANEL (01/31/2024 4:32 AM EDT) BUN 23(H) 6 - 20 mg/dL 01/31/2024 5:17 AM EDT LAB[facility] Creatinine 0.7 0.6 - 1.2 mg/dL 01/31/2024 5:17 AM EDT [facility] Estimated Glomerular Filtration Rate >90 >=60 mL/min 01/31/2024 5:17 AM EDT LAB[facility] Comment:eGFR is calculated b ased on the CKD-EPI 2020 equation Sodium 130(L) 135 - 146 mmol/L 01/31/2024 5:17 AM EDT [facility] Potassium 4.1 3.5 - 5.1 mmol/L 01/31/2024 5:17 AM EDT [facility] Chloride 95(L) 98 - 107 mmol/L 01/31/2024 5:17 AM EDT LAB[facility] CO2 24 22 - 32 mmol/L 01/31/2024 5:17 AM EDT [facility] Anion Gap 11 7 - 15 mmol/L 01/31/2024 5:17 AM EDT LAB[facility] Glucose 146(H) 70 - 120 mg/dL 01/31/2024 5:17 AM EDT LAB[facility] Calcium 8.4 8.4 - 10.2 mg/dL 01/31/2024 5:17 AM EDT LAB[facility] Blood Venous blood specimen / Unknown Venipuncture / Unknown 01/31/2024 4:32 AM EDT 01/31/2024 4:43 AM EDT Jacki Jansen PA-C LAB BLOOD OR DERABLES Performing Organization Address City/[facility]/ZIP Co de Phone Number LABORATORY [facility] [address] [place] [address] * (ABNORMAL) GLUCOSE METER, POINT OF CARE (01/31/2024 3:29 AM EDT) Glucose Meter 134(H) 70 - 120 mg/dL 01/30/2024 11:39 PM EDT [facility] Blood Whole blood specimen / Unknown 01/31/2024 3:29 AM EDT 01/30/2024 11:39 PM EDT Aravind Rust MD LAB POINT O F CARE TEST DOCKED DEVICE UNSOLICITED RESULTS Performing Organization Address City/[facility]/ZIP Co de Phone Number [facility] [address] [place] [address] * GLUCOSE METER, POINT OF CARE (01/31/2024 2:21 AM EDT) Glucose Meter 101 70 - 120 mg/dL 01/31/2024 2:24 AM EDT [facility] Blood Whole blood specimen / Unknown 01/31/2024 2:21 AM EDT 01/31/2024 2:24 AM EDT Aravind Rust MD LAB POINT O F CARE TEST DOCKED DEVICE UNSOLICITED RESULTS Performing Organization Address City/[facility]/ZIP Co de Phone Number [facility] [address] [place] [address] * (ABNORMAL) GLUCOSE METER, POINT OF CARE (01/31/2024 1:54 AM EDT) Glucose Meter 52(L) 70 - 120 mg/dL 01/31/2024 2:24 AM EDT [facility] Blood Whole blood specimen / Unknown 01/31/2024 1:54 AM EDT 01/31/2024 2:24 AM EDT Aravind Rust MD LAB POINT O F CARE TEST DOCKED DEVICE UNSOLICITED RESULTS Performing Organization Address [facility]/ZIP Co de Phone Number [facility] [address] [place] [address] * (ABNORMAL) GLUCOSE METER, POINT OF CARE (01/31/2024 1:52 AM EDT) Glucose Meter 53(L) 70 - 120 mg/dL 01/31/2024 2:24 AM EDT [facility] SPRINGSIoT Technologies Blood Whole blood specimen / Unknown 01/31/2024 1:52 AM EDT 01/31/2024 2:24 AM EDT Aravind Rust MD LAB POINT O F CARE TEST DOCKED DEVICE UNSOLICITED RESULTS Performing Organization Address [facility] Co de Phone Number [facility] [address] [place] [address] * (ABNORMAL) GLUCOSE METER, POINT OF CARE (01/31/2024 1:37 AM EDT) Glucose Meter 155(H) 70 - 120 mg/dL 01/30/2024 11:39 PM EDT [facility] Blood Whole blood specimen / Unknown 01/31/2024 1:37 AM EDT 01/30/2024 11:39 PM EDT Aravind Rust MD LAB POINT O F CARE TEST DOCKED DEVICE UNSOLICITED RESULTS Performing Organization Address [facility] Co de Phone Number [facility] [address] [place] [address] * GLUCOSE METER, POINT OF CARE (01/30/2024 11:40 PM EDT) Glucose Meter 111 70 - 120 mg/dL 01/30/2024 11:44 PM EDT [facility] Blood Whole blood specimen / Unknown 01/30/2024 11:40 PM EDT 01/30/2024 11:44 PM EDT Aravind Rust MD LAB POINT O F CARE TEST DOCKED DEVICE UNSOLICITED RESULTS Performing Organization Address City/[facility]/ZIP Co de Phone Number [facility] [address] [place] [address] * GLUCOSE METER, POINT OF CARE (01/30/2024 10:40 PM EDT) Glucose Meter 113 70 - 120 mg/dL 01/30/2024 11:40 PM EDT [facility] [employer] [facility] Blood Whole blood specimen / Unknown 01/30/2024 10:40 PM EDT 01/30/2024 11:40 PM EDT Aravind Rust MD LAB POINT O F CARE TEST DOCKED DEVICE UNSOLICITED RESULTS Performing Organization Address City/[facility]/ZIP Co de Phone Number [facility] [address] [place] [address] * (ABNORMAL) GLUCOSE METER, POINT OF CARE (01/30/2024 4:56 PM EDT) Glucose Meter 160(H) 70 - 120 mg/dL 01/30/2024 11:40 PM EDT [facility] Blood Whole blood specimen / Unknown 01/30/2024 4:56 PM EDT 01/30/2024 11:40 PM EDT Aravind Rust MD LAB POINT O F CARE TEST DOCKED DEVICE UNSOLICITED RESULTS Performing Organization Address City/[facility]/ZIP Co de Phone Number [facility] [address] [place] [address] * (ABNORMAL) GLUCOSE METER, POINT OF CARE (01/30/2024 4:11 PM EDT) Glucose Meter 136(H) 70 - 120 mg/dL 01/30/2024 4:13 PM EDT [facility] Blood Whole blood specimen / Unknown 01/30/2024 4:11 PM EDT 01/30/2024 4:13 PM EDT Aravind Rust MD LAB POINT O F CARE TEST DOCKED DEVICE UNSOLICITED RESULTS Performing Organization Address City/[facility]/ZIP Co de Phone Number [facility] [address] [place] [address] * GLUCOSE METER, POINT OF CARE (01/30/2024 1:40 PM EDT) Glucose Meter 108 70 - 120 mg/dL 01/30/2024 11:39 PM EDT [facility] [employer] [facility] Blood Whole blood specimen / Unknown 01/30/2024 1:40 PM EDT 01/30/2024 11:39 PM EDT Aravind Rust MD LAB POINT O F CARE TEST DOCKED DEVICE UNSOLICITED RESULTS Performing Organization Address City/[facility] Co de Phone Number [place] [address] [place] [address] * (ABNORMAL) GLUCOSE METER, POINT OF CARE (01/30/2024 11:24 AM EDT) Glucose Meter 169(H) 70 - 120 mg/dL 01/30/2024 11:39 PM EDT [facility] Blood Whole blood specimen / Unknown 01/30/2024 11:24 AM EDT 01/30/2024 11:39 PM EDT Aravind Rust MD LAB POINT O F CARE TEST DOCKED DEVICE UNSOLICITED RESULTS Performing Organization Address City/[facility]/ZIP Co de Phone Number [facility] [address] [place] [address] * (ABNORMAL) GLUCOSE METER, POINT OF CARE (01/30/2024 8:45 AM EDT) Glucose Meter 145(H) 70 - 120 mg/dL 01/30/2024 11:39 PM EDT [facility] Blood Whole blood specimen / Unknown 01/30/2024 8:45 AM EDT 01/30/2024 11:39 PM EDT Aravind Rust MD LAB POINT O F CARE TEST DOCKED DEVICE UNSOLICITED RESULTS Performing Organization Address City/[facility]/ZIP Co de Phone Number [facility] [address] [place] [address] * (ABNORMAL) GLUCOSE METER, POINT OF CARE (01/30/2024 8:12 AM EDT) [facility] Glucose Meter 160(H) 70 - 120 mg/dL 01/30/2024 7:08 AM EDT [facility] Blood Whole blood specimen / Unknown 01/30/2024 8:12 AM EDT 01/30/2024 7:08 AM EDT Aravind Rust MD LAB POINT O F CARE TEST DOCKED DEVICE UNSOLICITED RESULTS Performing Organization Address [facility] Co de Phone Number [facility] [address] [place] [address] * XR CHEST 1 VIEW (01/30/2024 6:05 AM EDT) Anatomical Region Laterality Modality Chest Computed Radiogr aphy 01/30/2024 7:03 AM EDT Impressions 01/30/2024 7:01 AM EDT IMPRESSION Increased right pleural effusion and bilateral lung infiltrates/atelectasis. Narrative 01/30/2024 7:01 AM EDT EXAM XR CHEST 1 VIEW - 01/30/2024 6:05 am HISTORY follow up postop open heart TECHNIQUE Single-view chest COMPARISON 01/29/2024. FINDINGS Moderate size right pleural effusion. Bilateral lung base infiltrates increased when compared to the previous study. Left-sided chest tube. No pneumothorax. Procedure Note Luis Alberto Crenshaw MD - 01/30/2024 EXAM XR CHEST 1 VIEW - 01/30/2024 6:05 am HISTORY follow up postop open heart TECHNIQUE Single-view chest COMPARISON 01/29/2024. FINDINGS Moderate size right pleural effusion. Bilateral lung base infiltratesincreased when compared to the previous study. Left-sided chest tube. Nopneumothorax. IMPRESSION IMPRESSION Increased right pleural effusion and bilateral lunginfiltrates/atelectasis. [facility] (RAD GENER AL) * GLUCOSE METER, POINT OF CARE (01/30/2024 4:54 AM EDT) Glucose Meter 116 70 - 120 mg/dL 01/30/2024 7:08 AM EDT [facility] Blood Whole blood specimen / Unknown 01/30/2024 4:54 AM EDT 01/30/2024 7:08 AM EDT Aravind Rust MD LAB POINT O F CARE TEST DOCKED DEVICE UNSOLICITED RESULTS Performing Organization Address [facility] Co de Phone Number [facility] [address] [place] [address] * EKG (01/30/2024 4:02 AM EDT) 01/30/2024 4:02 AM EDT Narrative Procedure Note Jeremías Alves MD - 01/30/2024 4:02 AM EDT REASON FOR STUDY: Day one post cardiac surgery;Post-op Day #1 CONCLUSIONS: Normal sinus rhythm Nonspecific ST abnormality When compared with ECG of 29-Jan-2024 13:15, The axis Shifted right T wave amplitude has decreased in Inferior leads Ventricular Rate: 85 Atrial Rate: 85 MN Interval: 134 QRS Duration: 110 QT/QTc: 406/483 ms P-R-T [place]: 63 : -6 : 48 degrees Shelbi BLISS EKG Performing Organization Address City/[facility] Co de Phone Number [facility] SPRINGSZhihu CARDIOLOGY * (ABNORMAL) DIFFERENTIAL, TECHNOLOGIST REVIEW (01/30/2024 3:11 AM EDT) WBC 39.30(H) 4.00 - 10.80 K/uL 01/30/2024 5:35 AM EDT [facility] Lymphocytes % 100.0(H) 18.0 - 42.0 % 01/30/2024 5:35 AM EDT [facility] Absolute Lymphocytes 39.30(H) 1.00 - 4.80 K/uL 01/30/2024 5:35 AM EDT [facility] Smudge Cells Present(A ) None Seen 01/30/2024 5:35 AM EDT [facility] Blood Venous blood specimen / Unknown Venipuncture / Unknown 01/30/2024 3:11 AM EDT 01/30/2024 3:36 AM EDT Shelbi Beck [facility] LAB BLOOD ORDERABLES Performing Organization Address City/[facility] Co de Phone Number [facility] [address] [place] [address] * O2 SATURATION, VENOUS (01/30/2024 3:11 AM EDT) O2, Saturation, Venous 69.0 40.0 - 85.0 % 01/30/2024 3:39 AM EDT [facility] Blood Venous blood specimen / Unknown Venipuncture / Unknown 01/30/2024 3:11 AM EDT 01/30/2024 3:36 AM EDT [facility]bi [facility] [employer] LAB BLOOD ORDERABLES Performing Organization Address [facility] de Phone Number [facility] [address] [place] [address] * DIFFERENTIAL, AUTOMATED (01/30/2024 3:11 AM EDT) Blood Venous blood specimen / Unknown Venipuncture / Unknown 01/30/2024 3:11 AM EDT 01/30/2024 3:36 AM EDT [employer] LAB BLOOD ORDERABLES Performing Organization Address [facility] Co de Phone Number [facility] [address] [place] [address] * (ABNORMAL) CBC (01/30/2024 3:11 AM EDT) WBC 39.30(H) 4.00 - 10.80 K/uL 01/30/2024 3:48 AM EDT [facility] RBC 2.70 4.50 - 5.25 M/uL 01/30/2024 3:48 AM EDT [facility] HGB 8.6(L) 14.0 - 16.8 g/dL 01/30/2024 3:48 AM EDT [facility] HCT 26.0(L) 40.0 - 48.4 % 01/30/2024 3:48 AM EDT LAB[facility]ATORY [facility] MCV 96.3 82.0 - 99.5 fL 01/30/2024 3:48 AM EDT LAB[facility]ATORY [facility] MCH 31.9 27.0 - 34.0 pg 01/30/2024 3:48 AM EDT LAB[facility] MCHC 33.1 32.0 - 36.0 g/dL 01/30/2024 3:48 AM EDT LAB[facility]ATORY [facility] RDW 14.5 11.5 - 15.5 % 01/30/2024 3:48 AM EDT LAB[facility] PLT 80(L) 140 - 400 K/uL 01/30/2024 3:48 AM EDT LAB[facility] MPV 10.6 6.6 - 11.1 fL 01/30/2024 3:48 AM EDT LAB[facility] nRBCs 0 <=0 /100 WBCs 01/30/2024 3:48 AM EDT LAB[facility] Blood Venous blood specimen / Unknown Venipuncture / Unknown 01/30/2024 3:11 AM EDT 01/30/2024 3:36 AM EDT Shelbi BLISS LAB BLOOD ORDERABLES Performing Organization Address City/State/[facility] Co de Phone Number LABORATORY [facility] [address] [place], [place] [id number] * MAGNESIUM (01/30/2024 3:11 AM EDT) Magnesium 2.2 1.5 - 2.6 mg/dL 01/30/2024 4:04 AM EDT LAB[facility]ATORY [facility] Blood Venous blood specimen / Unknown Venipuncture / Unknown 01/30/2024 3:11 AM EDT 01/30/2024 3:36 AM EDT Shelbi BLISS LAB BLOOD ORDERABLES Performing Organization Address City/[facility]/ZIP Co de Phone Number LABORATORY [facility] [address] [place] [address] * (ABNORMAL) BASIC METABOLIC PANEL (01/30/2024 3:11 AM EDT) BUN 18 6 - 20 mg/dL 01/30/2024 4:04 AM EDT LABORATORY C Creatinine 0.7 0.6 - 1.2 mg/dL 01/30/2024 4:04 AM EDT LABORATORY [facility] Estimated Glomerular Filtration Rate >90 >=60 mL/min 01/30/2024 4:04 AM EDT LABORATORY [facility] Comment:eGFR is calculated b ased on the CKD-EPI 2020 equation Sodium 140 135 - 146 mmol/L 01/30/2024 4:04 AM EDT LAB[facility]ATORY [facility] Potassium 4.2 3.5 - 5.1 mmol/L 01/30/2024 4:04 AM EDT LAB[facility]ATORY [facility] Chloride 105 98 - 107 mmol/L 01/30/2024 4:04 AM EDT LAB[facility]ATORY [facility] CO2 26 22 - 32 mmol/L 01/30/2024 4:04 AM EDT LAB[facility]ATORY [facility] Anion Gap 9 7 - 15 mmol/L 01/30/2024 4:04 AM EDT LABORATORY [facility] Glucose 126(H) 70 - 120 mg/dL 01/30/2024 4:04 AM EDT LABORATORY [facility] Calcium 7.9(L) 8.4 - 10.2 mg/dL 01/30/2024 4:04 AM EDT LABORATORY C Blood Venous blood specimen / Unknown Venipuncture / Unknown 01/30/2024 3:11 AM EDT 01/30/2024 3:36 AM EDT Shelbi Beck RUTHY LAB BLOOD ORDERABLES Performing Organization Address City/[facility]/ZIP Co de Phone Number LABORATORY [facility] [address] [place] [address] * GLUCOSE METER, POINT OF CARE (01/30/2024 2:27 AM EDT) Glucose Meter 117 70 - 120 mg/dL 01/30/2024 3:28 AM EDT [facility] Blood Whole blood specimen / Unknown 01/30/2024 2:27 AM EDT 01/30/2024 3:28 AM EDT Aravind Rust MD LAB POINT O F CARE TEST DOCKED DEVICE UNSOLICITED RESULTS Performing Organization Address City/[facility]/ZIP Co de Phone Number [facility] [address] [place] [address] * (ABNORMAL) GLUCOSE METER, POINT OF CARE (01/29/2024 11:34 PM EDT) Glucose Meter 126(H) 70 - 120 mg/dL 01/30/2024 3:28 AM EDT [employer] [facility] Blood Whole blood specimen / Unknown 01/29/2024 11:34 PM EDT 01/30/2024 3:28 AM EDT Aravind Rust MD LAB POINT O F CARE TEST DOCKED DEVICE UNSOLICITED RESULTS Performing Organization Address [facility] Co de Phone Number [facility] [address] [place] [address] * GLUCOSE METER, POINT OF CARE (01/29/2024 9:02 PM EDT) Glucose Meter 106 70 - 120 mg/dL 01/30/2024 3:27 AM EDT [employer] [facility] Blood Whole blood specimen / Unknown 01/29/2024 9:02 PM EDT 01/30/2024 3:27 AM EDT Aravind Rust MD LAB POINT O F CARE TEST DOCKED DEVICE UNSOLICITED RESULTS Performing Organization Address City/[facility]/ZIP Co de Phone Number [facility] [address] [place] [address] * (ABNORMAL) WHOLE BLOOD PROFILE, ARTERIAL (01/29/2024 6:58 PM EDT) Temperature 37.0 C 01/29/2024 7:09 PM EDT LABORATORY [facility] pH, Arterial 7.421 7.350 - 7.450 units 01/29/2024 7:09 PM EDT LABORATORY [facility] pCO2, Arterial 41.9 35.0 - 45.0 mmHg 01/29/2024 7:09 PM EDT LAB[facility]ATORY [facility] pO2, Arterial 165.0(H) 75.0 - 100.0 mmHg 01/29/2024 7:09 PM EDT LABORATORY [facility] Base Excess, Arterial 2.5(H) -2.0 - 2.0 mmol/L 01/29/2024 7:09 PM EDT LAB[facility]ATORY [facility] HGB 9.6(L) 14.0 - 16.8 g/dL 01/29/2024 7:09 PM EDT LAB[facility]AT[facility] Oxyhemoglobin, Arterial 97.5 94.0 - 99.0 % total Hgb 01/29/2024 7:09 PM EDT LABORATORY C Carboxyhemoglob in, Whole Blood 1.5 <=1.5 % total Hgb 01/29/2024 7:09 PM EDT LABORATORY C Comment:Smokers: 0-9.0 % Methemoglobin, Whole Blood 0.8 <=1.5 % total Hgb 01/29/2024 7:09 PM EDT LAB[facility]ATORY [facility] Reduced Hemoglobin, Arterial 0.2 0.0 - 5.0 % total Hgb 01/29/2024 7:09 PM EDT LABORATORY [facility] O2 Content, Arterial 13.5(L) 15.0 - 24.0 %vol 01/29/2024 7:09 PM EDT LABORATORY C Potassium, Whole Blood 3.9 3.5 - 5.1 mmol/L 01/29/2024 7:09 PM EDT LABORATORY C Sodium, Whole Blood 142 135 - 146 mmol/L 01/29/2024 7:09 PM EDT LABORATORY C Chloride, Whole Blood 104 98 - 107 mmol/L 01/29/2024 7:09 PM EDT LABORATORY C Calcium, Ionized, Whole Blood 1.19 1.13 - 1.32 mmol/L 01/29/2024 7:09 PM EDT LABORATORY [facility] Anion Gap, Whole Blood 11.6 7.0 - 15.0 mmol/L 01/29/2024 7:09 PM EDT LABORATORY C Glucose, Whole Blood 143(H) 70 - 120 mg/dL 01/29/2024 7:09 PM EDT LABORATORY [facility] FiO2 Not Provided % 01/29/2024 7:09 PM EDT LABORATORY [facility] O2 Flow, Arterial Not Provided L/min 01/29/2024 7:09 PM EDT LABORATORY [facility] Bicarbonate, Whole Blood 26.7 23.0 - 31.0 mmol/L 01/29/2024 7:09 PM EDT LAB[facility]ATORY [facility] Blood Arterial blood specimen / Unknown Arterial Puncture / Unknown 01/29/2024 6:58 PM EDT 01/29/2024 7:06 PM EDT Shelbi BLISS LAB BLOOD ORDERABLES Performing Organization Address City/[facility]/ZIP Co de Phone Number LABORATORY [facility] [address] [place] [address] * MAGNESIUM (01/29/2024 6:56 PM EDT) Magnesium 2.1 1.5 - 2.6 mg/dL 01/29/2024 7:35 PM EDT LAB[facility]ATORY [facility] Blood Arterial blood specimen / Unknown Arterial Line / Unknown 01/29/2024 6:56 PM EDT 01/29/2024 7:06 PM EDT Shelbi BLISS LAB BLOOD ORDERABLES Performing Organization Address [facility]/ZIP Co de Phone Number LABORATORY [facility] [address] [place] [address] * (ABNORMAL) CBC (01/29/2024 6:56 PM EDT) WBC 54.10(HH) 4.00 - 10.80 K/uL 01/29/2024 9:03 PM EDT LABORATORY [facility] RBC 2.94 4.50 - 5.25 M/uL 01/29/2024 9:03 PM EDT LAB[facility]ATORY [facility] HGB 9.5(L) 14.0 - 16.8 g/dL 01/29/2024 9:03 PM EDT LAB[facility]ATORY [facility] HCT 28.9(L) 40.0 - 48.4 % 01/29/2024 9:03 PM EDT LABORATORY [facility] MCV 98.3 82.0 - 99.5 fL 01/29/2024 9:03 PM EDT LABORATORY [facility] MCH 32.3 27.0 - 34.0 pg 01/29/2024 9:03 PM EDT LABORATORY [facility] MCHC 32.9 32.0 - 36.0 g/dL 01/29/2024 9:03 PM EDT LAB[facility]ATORY [facility] RDW 14.4 11.5 - 15.5 % 01/29/2024 9:03 PM EDT LABORATORY [facility] PLT 83(L) 140 - 400 K/uL 01/29/2024 9:03 PM EDT LAB[facility]ATORY [facility] MPV 10.2 6.6 - 11.1 fL 01/29/2024 9:03 PM EDT LABORATORY [facility] nRBCs 0 <=0 /100 WBCs 01/29/2024 9:03 PM EDT LABORATORY [facility] Blood Arterial blood specimen / Unknown Arterial Line / Unknown 01/29/2024 6:56 PM EDT 01/29/2024 7:06 PM EDT Shelbi BLISS LAB BLOOD ORDERABLES LABORATORY [facility] [address] [place] [address] * (ABNORMAL) BASIC METABOLIC PANEL (01/29/2024 6:56 PM EDT) BUN 15 6 - 20 mg/dL 01/29/2024 7:35 PM EDT LABORATORY [facility] Creatinine 0.7 0.6 - 1.2 mg/dL 01/29/2024 7:35 PM EDT LABORATORY [facility] Estimated Glomerular Filtration Rate >90 >=60 mL/min 01/29/2024 7:35 PM EDT LABORATORY [facility] Comment:eGFR is calculated b ased on the CKD-EPI 2020 equation Sodium 143 135 - 146 mmol/L 01/29/2024 7:35 PM EDT LABORATORY [facility] Potassium 4.3 3.5 - 5.1 mmol/L 01/29/2024 7:35 PM EDT LABORATORY [facility] Chloride 107 98 - 107 mmol/L 01/29/2024 7:35 PM EDT LABORATORY [facility] CO2 26 22 - 32 mmol/L 01/29/2024 7:35 PM EDT LABORATORY C Anion Gap 10 7 - 15 mmol/L 01/29/2024 7:35 PM EDT LABORATORY [facility] Glucose 142(H) 70 - 120 mg/dL 01/29/2024 7:35 PM EDT LABORATORY [facility] Calcium 8.4 8.4 - 10.2 mg/dL 01/29/2024 7:35 PM EDT LAB[facility]ATORY [facility] Blood Arterial blood specimen / Unknown Arterial Line / Unknown 01/29/2024 6:56 PM EDT 01/29/2024 7:06 PM EDT Shelbi BLISS LAB BLOOD ORDERABLES LABORATORY [facility] [address] [place] [address] * (ABNORMAL) GLUCOSE METER, POINT OF CARE (01/29/2024 5:51 PM EDT) [facility] Glucose Meter 141(H) 70 - 120 mg/dL 01/30/2024 3:28 AM EDT [facility] Blood Whole blood specimen / Unknown 01/29/2024 5:51 PM EDT 01/30/2024 3:28 AM EDT Aravind Rust MD LAB POINT O F CARE TEST DOCKED DEVICE UNSOLICITED RESULTS [facility] [address] [place] [address] * TRANSFUSE PLATELETS (01/29/2024 4:57 PM EDT) Shelbi BLISS BLD BANK TRANFUSE OR DERABLES * TRANSFUSE PLATELETS (01/29/2024 4:57 PM EDT) Shelbi BILSS BLD BANK TRANFUSE OR DERABLES * XR ABDOMEN 1 VIEW (01/29/2024 4:26 PM EDT) Anatomical Region Laterality Modality Abdomen, Pelvis Computed Radiogr aphy 01/29/2024 5:38 PM EDT Impressions 01/29/2024 5:36 PM EDT IMPRESSION Orogastric tube is appropriately positioned in the stomach. Narrative 01/29/2024 5:36 PM EDT EXAM XR ABDOMEN 1 VIEW-01/29/2024 4:26 pm HISTORY new OGT placement COMPARISON Abdominal radiograph dated earlier on 01/29/2024. TECHNIQUE AP supine radiograph of the abdomen. FINDINGS Orogastric tube is appropriately positioned in the stomach. The side port is not seen but is likely below the level the gastroesophageal junction and obscured by posterior instrumented thoracolumbar spinal hardware. No appreciable free air. Procedure Note Moe Roy MD - 01/29/2024 EXAM XR ABDOMEN 1 VIEW-01/29/2024 4:26 pm HISTORY new OGT placement COMPARISON Abdominal radiograph dated earlier on 01/29/2024. TECHNIQUE AP supine radiograph of the abdomen. FINDINGS Orogastric tube is appropriately positioned in the stomach. The side george not seen but is likely below the level the gastroesophageal junctionand obscured by posterior instrumented thoracolumbar spinal hardware. Noappreciable free air. IMPRESSION IMPRESSION Orogastric tube is appropriately positioned in the stomach. Bladimir LATHAM-Marino RADIOLOGY ([facility]) * TRANSFUSE PLASMA (01/29/2024 4:16 PM EDT) Shelbi WALDEN BANK TRANFUSE OR DERABLES * TRANSFUSE PLASMA (01/29/2024 4:16 PM EDT) Shelbi WALDEN BANK TRANFUSE OR DERABLES * (ABNORMAL) WHOLE BLOOD PROFILE, ARTERIAL (01/29/2024 3:58 PM EDT) Temperature 37.0 C 01/29/2024 4:08 PM EDT LABORATORY [facility] pH, Arterial 7.453(H) 7.350 - 7.450 units 01/29/2024 4:08 PM EDT LABORATORY [facility] pCO2, Arterial 32.7(L) 35.0 - 45.0 mmHg 01/29/2024 4:08 PM EDT LABORATORY [facility] pO2, Arterial 203.0(H) 75.0 - 100.0 mmHg 01/29/2024 4:08 PM EDT LABORATORY [facility] Base Excess, Arterial -0.5 -2.0 - 2.0 mmol/L 01/29/2024 4:08 PM EDT LABORATORY [facility] HGB 9.5(L) 14.0 - 16.8 g/dL 01/29/2024 4:08 PM EDT LABORATORY [facility] Oxyhemoglobin, Arterial 97.7 94.0 - 99.0 % total Hgb 01/29/2024 4:08 PM EDT LABORATORY [facility] Carboxyhemoglob in, Whole Blood 1.6(H) <=1.5 % total Hgb 01/29/2024 4:08 PM EDT LABORATORY [facility] Comment:Smokers: 0-9.0 % Methemoglobin, Whole Blood 0.8 <=1.5 % total Hgb 01/29/2024 4:08 PM EDT LABORATORY [facility] Reduced Hemoglobin, Arterial 0.0 0.0 - 5.0 % total Hgb 01/29/2024 4:08 PM EDT LABORATORY [facility] O2 Content, Arterial 01/29/2024 4:08 PM EDT LABORATORY G[facility] Comment:Not calculated. Potassium, Whole Blood 3.2(L) 3.5 - 5.1 mmol/L 01/29/2024 4:08 PM EDT LABORATORY [facility] Sodium, Whole Blood 142 135 - 146 mmol/L 01/29/2024 4:08 PM EDT LABORATORY [facility] Chloride, Whole Blood 110(H) 98 - 107 mmol/L 01/29/2024 4:08 PM EDT LABORATORY [facility] Calcium, Ionized, Whole Blood 0.98(L) 1.13 - 1.32 mmol/L 01/29/2024 4:08 PM EDT LABORATORY [facility] Anion Gap, Whole Blood 9.1 7.0 - 15.0 mmol/L 01/29/2024 4:08 PM EDT LABORATORY [facility] Glucose, Whole Blood 159(H) 70 - 120 mg/dL 01/29/2024 4:08 PM EDT LABORATORY [facility] FiO2 50 % 01/29/2024 4:08 PM EDT LABORATORY [facility] O2 Flow, Arterial Not Provided L/min 01/29/2024 4:08 PM EDT LABORATORY [facility] Bicarbonate, Whole Blood 22.5(L) 23.0 - 31.0 mmol/L 01/29/2024 4:08 PM EDT LABORATORY [facility] Blood Arterial blood specimen / Unknown Arterial Puncture / Unknown 01/29/2024 3:58 PM EDT 01/29/2024 4:02 PM EDT Shelbi BLISS LAB BLOOD ORDERABLES Performing Organization Address City/[facility]/ZIP Co de Phone Number LABORATORY [facility] [address] [place] [address] * (ABNORMAL) GLUCOSE METER, POINT OF CARE (01/29/2024 3:57 PM EDT) Glucose Meter 144(H) 70 - 120 mg/dL 01/30/2024 3:28 AM EDT [facility] Blood Whole blood specimen / Unknown 01/29/2024 3:57 PM EDT 01/30/2024 3:28 AM EDT Aravind Rust MD LAB POINT O F CARE TEST DOCKED DEVICE UNSOLICITED RESULTS Performing Organization Address City/[facility]/ZIP Co de Phone Number [facility] [address] [place] [address] * TRANSFUSE PLASMA (01/29/2024 3:49 PM EDT) Shelbi BLISS BLD BANK TRANFUSE OR DERABLES * TRANSFUSE CRYOPRECIPITATE (01/29/2024 3:21 PM EDT) Shelbi BLISS BLD BANK TRANFUSE OR DERABLES * TRANSFUSE CRYOPRECIPITATE (01/29/2024 3:21 PM EDT) Shelbi BLISS BLD BANK TRANFUSE OR DERABLES * TRANSFUSE CRYOPRECIPITATE (01/29/2024 2:57 PM EDT) Shelbi LBISS BLD BANK TRANFUSE OR DERABLES * (ABNORMAL) WHOLE BLOOD PROFILE, ARTERIAL (01/29/2024 2:51 PM EDT) Temperature 37.0 C 01/29/2024 3:02 PM EDT LABORATORY [facility] pH, Arterial 7.428 7.350 - 7.450 units 01/29/2024 3:02 PM EDT LABORATORY [facility] pCO2, Arterial 34.3(L) 35.0 - 45.0 mmHg 01/29/2024 3:02 PM EDT LABORATORY [facility] pO2, Arterial 171.0(H) 75.0 - 100.0 mmHg 01/29/2024 3:02 PM EDT LABORATORY [facility] Base Excess, Arterial -1.1 -2.0 - 2.0 mmol/L 01/29/2024 3:02 PM EDT LABORATORY [facility] HGB 10.5(L) 14.0 - 16.8 g/dL 01/29/2024 3:02 PM EDT LABORATORY [facility] Oxyhemoglobin, Arterial 97.7 94.0 - 99.0 % total Hgb 01/29/2024 3:02 PM EDT LABORATORY [facility] Carboxyhemoglob in, Whole Blood 1.4 <=1.5 % total Hgb 01/29/2024 3:02 PM EDT LABORATORY [facility] Comment:Smokers: 0-9.0 % Methemoglobin, Whole Blood 0.6 <=1.5 % total Hgb 01/29/2024 3:02 PM EDT LABORATORY [facility] Reduced Hemoglobin, Arterial 0.3 0.0 - 5.0 % total Hgb 01/29/2024 3:02 PM EDT LABORATORY [facility] O2 Content, Arterial 14.7(L) 15.0 - 24.0 %vol 01/29/2024 3:02 PM EDT LABORATORY [facility] Potassium, Whole Blood 3.3(L) 3.5 - 5.1 mmol/L 01/29/2024 3:02 PM EDT LABORATORY [facility] Sodium, Whole Blood 140 135 - 146 mmol/L 01/29/2024 3:02 PM EDT LABORATORY [facility] Chloride, Whole Blood 110(H) 98 - 107 mmol/L 01/29/2024 3:02 PM EDT LABORATORY [facility] Calcium, Ionized, Whole Blood 1.03(L) 1.13 - 1.32 mmol/L 01/29/2024 3:02 PM EDT LABORATORY [facility] Anion Gap, Whole Blood 7.7 7.0 - 15.0 mmol/L 01/29/2024 3:02 PM EDT LABORATORY [facility] Glucose, Whole Blood 180(H) 70 - 120 mg/dL 01/29/2024 3:02 PM EDT LABORATORY C FiO2 50 % 01/29/2024 3:02 PM EDT LABORATORY [facility] O2 Flow, Arterial Not Provided L/min 01/29/2024 3:02 PM EDT LABORATORY [facility] Bicarbonate, Whole Blood 22.3(L) 23.0 - 31.0 mmol/L 01/29/2024 3:02 PM EDT LABORATORY [facility] Blood Arterial blood specimen / Unknown Arterial Line / Unknown 01/29/2024 2:51 PM EDT 01/29/2024 2:57 PM EDT Shelbi BLISS LAB BLOOD ORDERABLES LABORATORY [facility] [address] [place], [place] [id number] * (ABNORMAL) GLUCOSE METER, POINT OF CARE (01/29/2024 2:09 PM EDT) [facility] Glucose Meter 175(H) 70 - 120 mg/dL 01/30/2024 3:27 AM EDT [facility] [employer] [facility] Blood Whole blood specimen / Unknown 01/29/2024 2:09 PM EDT 01/30/2024 3:27 AM EDT Aravind Rust MD LAB POINT O F CARE TEST DOCKED DEVICE UNSOLICITED RESULTS [facility] [address] [place] [address] * XR CHEST 1 VIEW (01/29/2024 1:55 PM EDT) Anatomical Region Laterality Modality Chest Computed Radiogr aphy 01/29/2024 3:41 PM EDT Impressions 01/29/2024 3:38 PM EDT IMPRESSION 1. No enteric tube is seen. 2. Bilateral atelectatic changes with a questionable small right pleural effusion. 3. Lines and tubes, as above. Narrative 01/29/2024 3:38 PM EDT EXAM XR ABDOMEN 1 VIEW; XR CHEST 1 VIEW-01/29/2024 1:55 pm HISTORY Gastric Tube placement verification; baseline initial xray after open heart surgery COMPARISON Chest radiograph 09/05/2021. TECHNIQUE AP supine radiograph of the chest and AP supine radiograph of the abdomen. FINDINGS Chest: Line/tube/devices: Right-sided Wellington-Lori catheter terminates in the proximal right pulmonary outflow track. Left chest tube. Mediastinal drainage catheter. Endotracheal tube terminates approximally 4.8 cm above the lizette. There are bilateral atelectatic changes without focal airspace consolidation. No pneumothorax. Questionable small right pleural effusion. Cardiomediastinal silhouette is within normal limits given changes of prior median sternotomy and aortic valve replacement. CABG is also noted. Abdomen: No enteric tube is seen. Bowel gas pattern is within normal limits. Postoperative changes of the thoracolumbar spine. Procedure Note Moe Roy MD - 01/29/2024 EXAM XR ABDOMEN 1 VIEW; XR CHEST 1 VIEW-01/29/2024 1:55 pm HISTORY Gastric Tube placement verification; baseline initial xray after openheart surgery COMPARISON Chest radiograph 09/05/2021. TECHNIQUE AP supine radiograph of the chest and AP supine radiograph of theabdomen. FINDINGS Chest: Line/tube/devices: Right-sided Wellington-Lori catheter terminates in theproximal right pulmonary outflow track. Left chest tube. Mediastinaldrainage catheter. Endotracheal tube terminates approximally 4.8 cm abovethe lizette. There are bilateral atelectatic changes without focal airspaceconsolidation. No pneumothorax. Questionable small right pleuraleffusion. Cardiomediastinal silhouette is within normal limits givenchanges of prior median sternotomy and aortic valve replacement. CABG isalso noted. Abdomen: No enteric tube is seen. Bowel gas pattern is within normal limits.Postoperative changes of the thoracolumbar spine. IMPRESSION IMPRESSION 1. No enteric tube is seen. 2. Bilateral atelectatic changes with a questionable small right pleuraleffusion. 3. Lines and tubes, as above. Shelbi BLISS RADIOLOGY ([facility]) * XR ABDOMEN 1 VIEW (01/29/2024 1:55 PM EDT) Anatomical Region Laterality Modality Abdomen, Pelvis Computed Radiogr aphy 01/29/2024 3:41 PM EDT Impressions 01/29/2024 3:38 PM EDT IMPRESSION 1. No enteric tube is seen. 2. Bilateral atelectatic changes with a questionable small right pleural effusion. 3. Lines and tubes, as above. Narrative 01/29/2024 3:38 PM EDT EXAM XR ABDOMEN 1 VIEW; XR CHEST 1 VIEW-01/29/2024 1:55 pm HISTORY Gastric Tube placement verification; baseline initial xray after open heart surgery COMPARISON Chest radiograph 09/05/2021. TECHNIQUE AP supine radiograph of the chest and AP supine radiograph of the abdomen. FINDINGS Chest: Line/tube/devices: Right-sided Wellington-Lori catheter terminates in the proximal right pulmonary outflow track. Left chest tube. Mediastinal drainage catheter. Endotracheal tube terminates approximally 4.8 cm above the lizette. There are bilateral atelectatic changes without focal airspace consolidation. No pneumothorax. Questionable small right pleural effusion. Cardiomediastinal silhouette is within normal limits given changes of prior median sternotomy and aortic valve replacement. CABG is also noted. Abdomen: No enteric tube is seen. Bowel gas pattern is within normal limits. Postoperative changes of the thoracolumbar spine. Procedure Note Moe Roy MD - 01/29/2024 EXAM XR ABDOMEN 1 VIEW; XR CHEST 1 VIEW-01/29/2024 1:55 pm HISTORY Gastric Tube placement verification; baseline initial xray after openheart surgery COMPARISON Chest radiograph 09/05/2021. TECHNIQUE AP supine radiograph of the chest and AP supine radiograph of theabdomen. FINDINGS Chest: Line/tube/devices: Right-sided Wellington-Lori catheter terminates in theproximal right pulmonary outflow track. Left chest tube. Mediastinaldrainage catheter. Endotracheal tube terminates approximally 4.8 cm abovethe lizette. There are bilateral atelectatic changes without focal airspaceconsolidation. No pneumothorax. Questionable small right pleuraleffusion. Cardiomediastinal silhouette is within normal limits givenchanges of prior median sternotomy and aortic valve replacement. CABG isalso noted. Abdomen: No enteric tube is seen. Bowel gas pattern is within normal limits.Postoperative changes of the thoracolumbar spine. IMPRESSION IMPRESSION 1. No enteric tube is seen. 2. Bilateral atelectatic changes with a questionable small right pleuraleffusion. 3. Lines and tubes, as above. Shelbi BLISS RADIOLOGY (RAD [facility]) * (ABNORMAL) WHOLE BLOOD PROFILE, ARTERIAL (01/29/2024 1:25 PM EDT) Temperature 37.0 C 01/29/2024 1:42 PM EDT LABORATORY [facility] pH, Arterial 7.372 7.350 - 7.450 units 01/29/2024 1:42 PM EDT LABORATORY [facility] pCO2, Arterial 40.3 35.0 - 45.0 mmHg 01/29/2024 1:42 PM EDT LABORATORY [facility] pO2, Arterial 145.0(H) 75.0 - 100.0 mmHg 01/29/2024 1:42 PM EDT LABORATORY [facility] Base Excess, Arterial -1.7 -2.0 - 2.0 mmol/L 01/29/2024 1:42 PM EDT LABORATORY [facility] HGB 11.3(L) 14.0 - 16.8 g/dL 01/29/2024 1:42 PM EDT LABORATORY [facility] Oxyhemoglobin, Arterial 97.4 94.0 - 99.0 % total Hgb 01/29/2024 1:42 PM EDT LABORATORY [facility] Carboxyhemoglob in, Whole Blood 1.3 <=1.5 % total Hgb 01/29/2024 1:42 PM EDT LABORATORY [facility] Comment:Smokers: 0-9.0 % Methemoglobin, Whole Blood 0.6 <=1.5 % total Hgb 01/29/2024 1:42 PM EDT LABORATORY [facility] Reduced Hemoglobin, Arterial 0.7 0.0 - 5.0 % total Hgb 01/29/2024 1:42 PM EDT LAB[facility]ATORY [facility] O2 Content, Arterial 15.7 15.0 - 24.0 %vol 01/29/2024 1:42 PM EDT LABORATORY [facility] Potassium, Whole Blood 4.0 3.5 - 5.1 mmol/L 01/29/2024 1:42 PM EDT [facility] Sodium, Whole Blood 137 135 - 146 mmol/L 01/29/2024 1:42 PM EDT [facility] C Chloride, Whole Blood 104 98 - 107 mmol/L 01/29/2024 1:42 PM EDT [facility] C Calcium, Ionized, Whole Blood 1.04(L) 1.13 - 1.32 mmol/L 01/29/2024 1:42 PM EDT [facility] Anion Gap, Whole Blood 10.3 7.0 - 15.0 mmol/L 01/29/2024 1:42 PM EDT [facility] C Glucose, Whole Blood 214(H) 70 - 120 mg/dL 01/29/2024 1:42 PM EDT [facility] C FiO2 50% % 01/29/2024 1:42 PM EDT [facility] [place] O2 Flow, Arterial Not Provided L/min 01/29/2024 1:42 PM EDT [facility] Bicarbonate, Whole Blood 22.9(L) 23.0 - 31.0 mmol/L 01/29/2024 1:42 PM EDT [facility] Blood Arterial blood specimen / Unknown Arterial Line / Unknown 01/29/2024 1:25 PM EDT 01/29/2024 1:35 PM EDT [facility] BLOOD ORDERABLES Performing Organization Address City/State/[facility] Co de Phone Number [facility] [place] [address] [place] [address] * TEG (THROMBOELASTOGRAPH), HEPARINASE (01/29/2024 1:21 PM EDT) Reaction Time 4.2 2.5 - 8.3 minutes 01/29/2024 3:02 PM EDT [facility] Kinetics Time 2.2 0.5 - 3.7 minutes 01/29/2024 3:02 PM EDT [facility] Alpha Angle 62.4 46.8 - 78.4 degrees 01/29/2024 3:02 PM EDT [facility] Maximum Amplitude 53.8 50.6 - 72.5 mm 01/29/2024 3:02 PM EDT [facility] Coagulation Index 0.0 -3.0 - 3.0 01/29/2024 3:02 PM EDT [facility] Percent Lysis 30 0.0 0.0 - 7.5 % 024 3:02 PM EDT [facility] Comment:This is an appended report. These results have been appended to a previously preliminary verified report. Blood Arterial blood specimen / Unknown Arterial Line / Unknown 01/29/2024 1:21 PM EDT 01/29/2024 1:35 PM EDT [facility] BLOOD ORDERABLES Performing Organization Address City/[facility] Co de Phone Number [facility] [place] [facility] [address] [place] [address] * TEG (THROMBOELASTOGRAPH) (01/29/2024 1:21 PM EDT) Reaction Time 4.0 2.5 - 8.3 minutes 01/29/2024 3:01 PM EDT [facility] Kinetics Time 2.2 0.5 - 3.7 minutes 01/29/2024 3:01 PM EDT [facility] Alpha Angle 64.0 46.8 - 78.4 degrees 01/29/2024 3:01 PM EDT [facility] Maximum Amplitude 56.8 50.6 - 72.5 mm 01/29/2024 3:01 PM EDT [facility] Coagulation Index 0.6 -3.0 - 3.0 01/29/2024 3:01 PM EDT [facility] Percent Lysis 30 0.0 0.0 - 7.5 % 024 3:01 PM EDT [facility] Comment:This is an appended report. These results have been appended to a previously preliminary verified report. Blood Arterial blood specimen / Unknown Arterial Line / Unknown 01/29/2024 1:21 PM EDT 01/29/2024 1:35 PM EDT Narrative [facility] - 01/29/2024 3:01 PM EDT If R time > 20 minutes and no clot formed suggesting hypocoagulable state or interfering substance (anticoagulation). Consider resubmitting a new sample and/or checking PT/INR, aPTT, fibrinogen, and platelet count. Shelbi BLISS LAB BLOOD ORDERABLES Performing Organization Address City/[facility] Co de Phone Number [facility] [address] [place] [address] * (ABNORMAL) PT INR (01/29/2024 1:21 PM EDT) Prothrombin Time 16.4(H) 11.6 - 15.2 seconds 01/29/2024 2:10 PM EDT [facility] INR 1.3(H) 0.8 - 1.2 01/29/2024 2:10 PM EDT [facility] Blood Arterial blood specimen / Unknown Arterial Line / Unknown 01/29/2024 1:21 PM EDT 01/29/2024 1:35 PM EDT Narrative [facility] - 01/29/2024 2:10 PM EDT Warfarin Therapy INR: 2.0-3.0 conventional anticoagulation INR: 2.5-3.5 high intensity anticoagulation Shelbi BLISS LAB BLOOD ORDERABLES Performing Organization Address [facility] de Phone Number [facility] [address] [place] [address] * O2 SATURATION, VENOUS (01/29/2024 1:21 PM EDT) Pathologist [facility] O2, Saturation, Venous 67.3 40.0 - 85.0 % 01/29/2024 1:42 PM EDT [facility] Blood Blood sample taken from central line / Unknown Central Line / Unknown 01/29/2024 1:21 PM EDT 01/29/2024 1:35 PM EDT Shelbi BLISS LAB BLOOD ORDERABLES Performing Organization Address [facility] Co de Phone Number [facility] [address] [place] [address] * MAGNESIUM (01/29/2024 1:21 PM EDT) Magnesium 2.6 1.5 - 2.6 mg/dL 01/29/2024 2:13 PM EDT [facility] Blood Arterial blood specimen / Unknown Arterial Line / Unknown 01/29/2024 1:21 PM EDT 01/29/2024 1:43 PM EDT Shelbi Burroughs WELDER FITTER LAB BLOOD ORDERABLES Performing Organization Address [facility] de Phone Number [facility] [address] [place] [address] * HEPARIN, UNFRACTIONATED (01/29/2024 1:21 PM EDT) Heparin, Unfractionated <0.10 <0.10 IU/mL 01/29/2024 2:10 PM EDT [facility] Comment: Unfractionated therapeutic ranges for Anti Xa activity: For Cardiac/Neurologic treatment: 0.3 to 0.6 IU/mL. For treatment of DVT or Pulmonary Embolism: 0.3 to 0.7 IU/mL. Blood Arterial blood specimen / Unknown Arterial Line / Unknown 01/29/2024 1:21 PM EDT 01/29/2024 1:35 PM EDT Shelbi IBARRANP LAB BLOOD ORDERABLES Performing Organization Address [facility] de Phone Number [facility] [address] [place] [address] * FIBRINOGEN (01/29/2024 1:21 PM EDT) Pathologist [facility] Fibrinogen 200 178 - 467 mg/dL 01/29/2024 2:27 PM EDT [facility] Blood Arterial blood specimen / Unknown Arterial Line / Unknown 01/29/2024 1:21 PM EDT 01/29/2024 1:35 PM EDT Shelbi Burroughs WELDER [employer]TER LAB BLOOD ORDERABLES Performing Organization Address [facility] Co de Phone Number [facility] [address] [place] [address] * (ABNORMAL) CBC (01/29/2024 1:21 PM EDT) WBC 78.39(HH) 4.00 - 10.80 K/uL 01/29/2024 2:14 PM EDT [facility] RBC 3.47 4.50 - 5.25 M/uL 01/29/2024 2:14 PM EDT [facility] HGB 10.9(L) 14.0 - 16.8 g/dL 01/29/2024 2:14 PM EDT [facility] HCT 33.9(L) 40.0 - 48.4 % 01/29/2024 2:14 PM EDT [facility] MCV 97.7 82.0 - 99.5 fL 01/29/2024 2:14 PM EDT [facility] MCH 31.4 27.0 - 34.0 pg 01/29/2024 2:14 PM EDT [facility] MCHC 32.2 32.0 - 36.0 g/dL 01/29/2024 2:14 PM EDT [facility] RDW 14.2 11.5 - 15.5 % 01/29/2024 2:14 PM EDT [facility] PLT 102(L) 140 - 400 K/uL 01/29/2024 2:14 PM EDT [facility] MPV 10.4 6.6 - 11.1 fL 01/29/2024 2:14 PM EDT [facility] nRBCs 0 <=0 /100 WBCs 01/29/2024 2:14 PM EDT [facility] Blood Arterial blood specimen / Unknown Arterial Line / Unknown 01/29/2024 1:21 PM EDT 01/29/2024 1:43 PM EDT Shelbi BLISS LAB BLOOD ORDERABLES Performing Organization Address City/State/[facility] Co de Phone Number LABORATORY [facility] [address] [place] [address] * (ABNORMAL) BASIC METABOLIC PANEL (01/29/2024 1:21 PM EDT) [facility] BUN 13 6 - 20 mg/dL 01/29/2024 2:13 PM EDT [facility] Creatinine 0.6 0.6 - 1.2 mg/dL 01/29/2024 2:13 PM EDT [facility] Estimated Glomerular Filtration Rate >90 >=60 mL/min 01/29/2024 2:13 PM EDT [facility] Comment:eGFR is calculated b ased on the CKD-EPI 2020 equation Sodium 139 135 - 146 mmol/L 01/29/2024 2:13 PM EDT [facility] Potassium 4.2 3.5 - 5.1 mmol/L 01/29/2024 2:13 PM EDT [facility] Chloride 103 98 - 107 mmol/L 01/29/2024 2:13 PM EDT [facility] CO2 21(L) 22 - 32 mmol/L 01/29/2024 2:13 PM EDT [facility] Anion Gap 15 7 - 15 mmol/L 01/29/2024 2:13 PM EDT [facility] Glucose 221(H) 70 - 120 mg/dL 01/29/2024 2:13 PM EDT [facility] Calcium 7.5(L) 8.4 - 10.2 mg/dL 01/29/2024 2:13 PM EDT LABORATORY C Blood Arterial blood specimen / Unknown Arterial Line / Unknown 01/29/2024 1:21 PM EDT 01/29/2024 1:43 PM EDT Shelbi Burroughs WELDER [employer]TER LAB BLOOD ORDERABLES Performing Organization Address City/[facility]/ZIP Co de Phone Number [facility] [address] [place] [address] * (ABNORMAL) APTT (01/29/2024 1:21 PM EDT) aPTT 42(H) 21 - 38 seconds 01/29/2024 2:10 PM EDT [facility] Blood Arterial blood specimen / Unknown Arterial Line / Unknown 01/29/2024 1:21 PM EDT 01/29/2024 1:35 PM EDT Narrative [facility] - 01/29/2024 2:10 PM EDT Anticoagulation may affect testing. Refer to [employer] [facility] for a list of effects. Shelbi Burroughs WELDER FITTER LAB BLOOD ORDERABLES [facility] [address] [place] [address] * (ABNORMAL) ANTITHROMBIN III ACTIVITY (01/29/2024 1:21 PM EDT) Antithrombin III Activity 61(L) 80 - 120 % 01/29/2024 2:10 PM EDT [facility] Blood Arterial blood specimen / Unknown Arterial Line / Unknown 01/29/2024 1:21 PM EDT 01/29/2024 1:35 PM EDT Shelbi BLISS LAB BLOOD ORDERABLES [facility] [address] [place] [address] * (ABNORMAL) BLOOD GAS WITH CHEMISTRY, POINT OF CARE (01/29/2024 1:16 PM EDT) Draw Site Arterial Draw 01/29/2024 1:19 PM EDT [facility] pH i-STAT 7.348(L) 7.350 - 7.450 01/29/2024 1:19 PM EDT [facility] pCO2 i-STAT 40.5 35.0 - 45.0 mm Hg 01/29/2024 1:19 PM EDT [facility] pO2 i-STAT 369(H) 75 - 100 mm Hg 01/29/2024 1:19 PM EDT [facility] Base Excess i-STAT -3(L) -2 - 2 mmol/L 01/29/2024 1:19 PM EDT [facility] Bicarbonate i-STAT 22.3(L) 23.0 - 31.0 mmol/L 01/29/2024 1:19 PM EDT [facility] O2 Saturation i-STAT 100.0(H) 94.0 - 98.0 % 01/29/2024 1:19 PM EDT [facility] Glucose i-STAT 198(H) 70 - 120 mg/dL 01/29/2024 1:19 PM EDT [facility] Potassium i-STAT 3.9 3.5 - 5.1 mmol/L 01/29/2024 1:19 PM EDT [facility] Sodium i-STAT 139 135 - 146 mmol/L 01/29/2024 1:19 PM EDT [facility] Calcium Ionized i-STAT 1.04(L) 1.13 - 1.32 mmol/L 01/29/2024 1:19 PM EDT [facility] Hemoglobin i-STAT 10.9(L) 14.0 - 16.8 g/dL 01/29/2024 1:19 PM EDT [facility] Hematocrit i-STAT 32(L) 40 - 48 % 01/29/2024 1:19 PM EDT [facility] FiO2 100 % 01/29/2024 1:19 PM EDT [facility] Arterial Draw 01/29/2024 1:1 6 PM EDT 01/29/2024 1:19 PM EDT Aravind Rust MD LAB POINT O F CARE TEST DOCKED DEVICE UNSOLICITED RESULTS Performing Organization Address [facility] Co de Phone Number [facility] [address] [place] [address] * EKG (01/29/2024 1:15 PM EDT) 01/29/2024 1:15 PM EDT Narrative Procedure Note Familia Street DO - 01/29/2024 1:15 PM EDT REASON FOR STUDY: Immediately Post-op;Status post surgery CONCLUSIONS: Normal sinus rhythm Left axis deviation Prolonged QT interval or tu fusion, consider myocardial disease,electrolyte imbalance, or drug effects When compared with ECG of 07-Jan-2024 14:07, The axis Shifted left Ventricular Rate: 98 Atrial Rate: 98 MN Interval: 156 QRS Duration: 108 QT/QTc: 396/505 ms P-R-T [place]: 75 : -40 : 72 degrees Shelbi BLISS EKG Performing Organization Address City/[facility] Co de Phone Number [facility] * PREPARE PLASMA (01/29/2024 1:10 PM EDT) Unit Product Code [id number] 01/31/2024 2:10 AM EDT [facility] Unit Number [id number] 01/31/2024 2:10 AM EDT [facility] Unit ABO A 01/31/2024 2:10 AM EDT [facility] Unit Rh POS 01/31/2024 2:10 AM EDT [facility] Unit Status PT 01/31/2024 2:10 AM EDT [facility] Unit Blood Type APOS 01/31/2024 2:10 AM EDT [facility] Unit Expiration [id number] 01/31/2024 2:10 AM EDT [facility] Unit Barcode 6200 01/31/2024 2:10 AM EDT [facility] Unit Product Code [id number] 01/31/2024 2:10 AM EDT [facility] Unit Number [id number] 01/31/2024 2:10 AM EDT [facility] Unit ABO A 01/31/2024 2:10 AM EDT [facility] Unit Rh POS 01/31/2024 2:10 AM EDT [facility] Unit Status PT 01/31/2024 2:10 AM EDT [facility] Unit Blood Type APOS 01/31/2024 2:10 AM EDT [facility] Unit Expiration [id number] 01/31/2024 2:10 AM EDT [facility] Unit Barcode 6200 01/31/2024 2:10 AM EDT [facility] 01/29/2024 1:10 PM EDT Shelbi BLISS BLD BANK PRODUCT ORD ERABLES [facility] BLOOD BANK [address], [place] [id number] * PREPARE PLATELETS (01/29/2024 1:00 PM EDT) Pathologist [facility] Unit Product Code [id number] 01/31/2024 2:10 AM EDT [facility] Unit Number [id number] 01/31/2024 2:10 AM EDT [facility] Unit ABO A 01/31/2024 2:10 AM EDT [facility] Unit Rh POS 01/31/2024 2:10 AM EDT [facility] Unit Status PT 01/31/2024 2:10 AM EDT [facility] Unit Blood Type APOS 01/31/2024 2:10 AM EDT [facility] Unit Expiration [id number] 01/31/2024 2:10 AM EDT [facility] Unit Barcode 6200 01/31/2024 2:10 AM EDT [facility] 01/29/2024 1:00 PM EDT Shelbi BLISS BLD BANK PRODUCT ORD ERABLES [facility] B[facility] [address] [place] [address] * PREPARE CRYOPRECIPITATE (01/29/2024 1:00 PM EDT) Unit Product Code [id number] 01/31/2024 2:10 AM EDT [facility] Unit Number [id number] 01/31/2024 2:10 AM EDT [facility] Unit ABO A 01/31/2024 2:10 AM EDT [facility] Unit Rh POS 01/31/2024 2:10 AM EDT [facility] Unit Status PT 01/31/2024 2:10 AM EDT [facility] Unit Blood Type APOS 01/31/2024 2:10 AM EDT [facility] Unit Expiration [id number] 01/31/2024 2:10 AM EDT [facility] Unit Barcode 6200 01/31/2024 2:10 AM EDT [facility] Unit Product Code [id number] 01/31/2024 2:10 AM EDT [facility] Unit Number [id number] 01/31/2024 2:10 AM EDT [facility] Unit ABO A 01/31/2024 2:10 AM EDT [facility] Unit Rh POS 01/31/2024 2:10 AM EDT [facility] Unit Status PT 01/31/2024 2:10 AM EDT [facility] Unit Blood Type APOS 01/31/2024 2:10 AM EDT [facility] BLOOD [facility] Unit Expiration [id number] 01/31/2024 2:10 AM EDT [facility] B[facility]OD [facility] Unit Barcode 6200 01/31/2024 2:10 AM EDT [facility] BLOOD BANK 01/29/2024 1:00 PM EDT Shelbi BLISS BLD BANK PRODUCT ORD ERABLES [facility] B[facility]OD [facility]ANK [address] [place] [address] * TEG (THROMBOELASTOGRAPH), HEPARINASE (01/29/2024 12:33 PM EDT) Pathologist [facility] Reaction Time 4.7 2.5 - 8.3 minutes 01/29/2024 2:19 PM EDT [facility] Kinetics Time 2.3 0.5 - 3.7 minutes 01/29/2024 2:19 PM EDT [facility] Alpha Angle 59.3 46.8 - 78.4 degrees 01/29/2024 2:19 PM EDT [facility] Maximum Amplitude 54.8 50.6 - 72.5 mm 01/29/2024 2:19 PM EDT [facility] Comment:This is an appended report. These results have been appended to a previously preliminary verified report. Coagulation Index -0.5 -3.0 - 3.0 01/29/2024 2:19 PM EDT [facility] Comment:This is an appended report. These results have been appended to a previously preliminary verified report. Percent Lysis 30 0.0 0.0 - 7.5 % 024 2:19 PM EDT [facility] Comment:This is an appended report. These results have been appended to a previously preliminary verified report. Blood Arterial blood specimen / Unknown 01/29/2024 12:33 PM EDT 01/29/2024 12:46 PM EDT Debbie Lopez MD LAB BLOOD ORDERABLES Performing Organization Address [facility] de Phone Number [facility] [address] [place] [address] * TEG (THROMBOELASTOGRAPH) (01/29/2024 12:33 PM EDT) Reaction Time 4.4 2.5 - 8.3 minutes 01/29/2024 2:18 PM EDT [facility] Kinetics Time 2.6 0.5 - 3.7 minutes 01/29/2024 2:18 PM EDT [facility] Alpha Angle 59.4 46.8 - 78.4 degrees 01/29/2024 2:18 PM EDT [facility] Maximum Amplitude 54.1 50.6 - 72.5 mm 01/29/2024 2:18 PM EDT [facility] Comment:This is an appended report. These results have been appended to a previously preliminary verified report. Coagulation Index -0.5 -3.0 - 3.0 01/29/2024 2:18 PM EDT [facility] Comment:This is an appended report. These results have been appended to a previously preliminary verified report. Percent Lysis 30 0.0 0.0 - 7.5 % 024 2:18 PM EDT [facility] Comment:This is an appended report. These results have been appended to a previously preliminary verified report. Blood Arterial blood specimen / Unknown 01/29/2024 12:33 PM EDT 01/29/2024 12:46 PM EDT [facility] LAB[facility]AT[facility] - 01/29/2024 2:18 PM EDT If R time > 20 minutes and no clot formed suggesting hypocoagulable state or interfering substance (anticoagulation). Consider resubmitting a new sample and/or checking PT/INR, aPTT, fibrinogen, and platelet count. Debbie Lopez MD LAB BLOOD ORDERABLES Performing Organization Address [facility] Co de Phone Number [facility] [address] [place] [address] * (ABNORMAL) CBC (01/29/2024 12:33 PM EDT) WBC 90.17(HH) 4.00 - 10.80 K/uL 01/29/2024 2:04 PM EDT [facility] RBC 3.37 4.50 - 5.25 M/uL 01/29/2024 2:04 PM EDT [facility] HGB 10.5(L) 14.0 - 16.8 g/dL 01/29/2024 2:04 PM EDT [facility] HCT 33.5(L) 40.0 - 48.4 % 01/29/2024 2:04 PM EDT [facility] MCV 99.4 82.0 - 99.5 fL 01/29/2024 2:04 PM EDT [facility] MCH 31.2 27.0 - 34.0 pg 01/29/2024 2:04 PM EDT LABORATORY [facility] MCHC 31.3 32.0 - 36.0 g/dL 01/29/2024 2:04 PM EDT LABORATORY [facility] RDW 14.3 11.5 - 15.5 % 01/29/2024 2:04 PM EDT LABORATORY [facility] PLT 97(L) 140 - 400 K/uL 01/29/2024 2:04 PM EDT [facility] MPV 10.2 6.6 - 11.1 fL 01/29/2024 2:04 PM EDT [facility] nRBCs 0 <=0 /100 WBCs 01/29/2024 2:04 PM EDT LABORATORY [facility] Blood Arterial blood specimen / Unknown 01/29/2024 12:33 PM EDT 01/29/2024 12:46 PM EDT Debbie Lopez MD LAB BLOOD ORDERABLES [facility] [address] [place] [address] * (ABNORMAL) PT INR (01/29/2024 12:33 PM EDT) Prothrombin Time 17.6(H) 11.6 - 15.2 seconds 01/29/2024 1:23 PM EDT [facility] INR 1.4(H) 0.8 - 1.2 01/29/2024 1:23 PM EDT [facility] Blood Arterial blood specimen / Unknown 01/29/2024 12:33 PM EDT 01/29/2024 12:46 PM EDT Narrative [facility] - 01/29/2024 1:23 PM EDT Warfarin Therapy INR: 2.0-3.0 conventional anticoagulation INR: 2.5-3.5 high intensity anticoagulation Debbie Lopez MD LAB BLOOD ORDERABLES Performing Organization Address [facility]/ZIP Co de Phone Number [facility] [address] [place] [address] * FIBRINOGEN (01/29/2024 12:33 PM EDT) Fibrinogen 180 178 - 467 mg/dL 01/29/2024 1:23 PM EDT [facility] Blood Arterial blood specimen / Unknown 01/29/2024 12:33 PM EDT 01/29/2024 12:46 PM EDT Debbie Lopez MD LAB BLOOD ORDERABLES Performing Organization Address [facility] de Phone Number [facility] [address] [place] [address] * (ABNORMAL) BLOOD GAS, ARTERIAL (01/29/2024 12:33 PM EDT) Temperature 37.0 C 01/29/2024 12:49 PM EDT [facility] pH, Arterial 7.309(L) 7.350 - 7.450 units 01/29/2024 12:49 PM EDT [facility] pCO2, Arterial 45.2(H) 35.0 - 45.0 mmHg 01/29/2024 12:49 PM EDT [facility] pO2, Arterial 154.0(H) 75.0 - 100.0 mmHg 01/29/2024 12:49 PM EDT [facility] Base Excess, Arterial -3.7(L) -2.0 - 2.0 mmol/L 01/29/2024 12:49 PM EDT [facility] HGB 10.9(L) 14.0 - 16.8 g/dL 01/29/2024 12:49 PM EDT [facility] Oxyhemoglobin, Arterial 96.3 94.0 - 99.0 % total Hgb 01/29/2024 12:49 PM EDT [facility] Carboxyhemoglob in, Whole Blood 1.5 <=1.5 % total Hgb 01/29/2024 12:49 PM EDT [facility] Comment:Smokers: 0-9.0 % Methemoglobin, Whole Blood 1.0 <=1.5 % total Hgb 01/29/2024 12:49 PM EDT [facility] Reduced Hemoglobin, Arterial 1.2 0.0 - 5.0 % total Hgb 01/29/2024 12:49 PM EDT [facility] O2 Content, Arterial 15.1 15.0 - 24.0 %vol 01/29/2024 12:49 PM EDT [facility] FiO2 Not Provided % 01/29/2024 12:49 PM EDT [facility] O2 Flow, Arterial Not Provided L/min 01/29/2024 12:49 PM EDT [facility] Bicarbonate, Whole Blood 22.0(L) 23.0 - 31.0 mmol/L 01/29/2024 12:49 PM EDT [facility] Blood Arterial blood specimen / Unknown 01/29/2024 12:33 PM EDT 01/29/2024 12:46 PM EDT Debbie Lopez MD LAB BLOOD ORDERABLES [facility] [address] [place] [address] * (ABNORMAL) DIFFERENTIAL, TECHNOLOGIST REVIEW (01/29/2024 12:33 PM EDT) WBC 90.17(HH) 4.00 - 10.80 K/uL 01/29/2024 2:49 PM EDT [facility] Neutrophils % 4.5(L) 40.0 - 75.0 % 01/29/2024 2:49 PM EDT [facility] Lymphocytes % 93.0(H) 18.0 - 42.0 % 01/29/2024 2:49 PM EDT [facility] Comment:Known CLL. Monocytes % 2.5 1.0 - 11.0 % 01/29/2024 2:49 PM EDT [facility] Absolute Neutrophils 4.06 1.80 - 7.70 K/uL 01/29/2024 2:49 PM EDT [facility] Absolute Lymphocytes 83.86(H) 1.00 - 4.80 K/uL 01/29/2024 2:49 PM EDT [facility] Absolute Monocytes 2.25(H) 0.00 - 1.10 K/uL 01/29/2024 2:49 PM EDT [facility] Smudge Cells Present(A ) None Seen 01/29/2024 2:49 PM EDT [facility] Blood Arterial blood specimen / Unknown 01/29/2024 12:33 PM EDT 01/29/2024 12:46 PM EDT Debbie Lopez MD LAB BLOOD ORDERABLES [facility] [address] [place] [address] * (ABNORMAL) BLOOD GAS WITH CHEMISTRY, POINT OF CARE (01/29/2024 12:25 PM EDT) Draw Site Arterial Draw 01/29/2024 12:36 PM EDT [facility] pH i-STAT 7.303(L) 7.350 - 7.450 01/29/2024 12:36 PM EDT [facility] pCO2 i-STAT 49.3(H) 35.0 - 45.0 mm Hg 01/29/2024 12:36 PM EDT [facility] pO2 i-STAT 133(H) 75 - 100 mm Hg 01/29/2024 12:36 PM EDT [facility] Base Excess i-STAT -2 -2 - 2 mmol/L 01/29/2024 12:36 PM EDT [facility] Bicarbonate i-STAT 24.4 23.0 - 31.0 mmol/L 01/29/2024 12:36 PM EDT [facility] O2 Saturation i-STAT 99.0(H) 94.0 - 98.0 % 01/29/2024 12:36 PM EDT [facility] Glucose i-STAT 214(H) 70 - 120 mg/dL 01/29/2024 12:36 PM EDT [facility] Potassium i-STAT 4.5 3.5 - 5.1 mmol/L 01/29/2024 12:36 PM EDT [facility] Sodium i-STAT 136 135 - 146 mmol/L 01/29/2024 12:36 PM EDT [facility] Calcium Ionized i-STAT 1.10(L) 1.13 - 1.32 mmol/L 01/29/2024 12:36 PM EDT [facility] Hemoglobin i-STAT 11.2(L) 14.0 - 16.8 g/dL 01/29/2024 12:36 PM EDT [facility] Hematocrit i-STAT 33(L) 40 - 48 % 01/29/2024 12:36 PM EDT [facility] Arterial Draw 01/29/2024 12: 25 PM EDT 01/29/2024 12:36 PM EDT Aravind Rust MD LAB POINT O F CARE TEST DOCKED DEVICE UNSOLICITED RESULTS Performing Organization Address City/[facility]/ZIP Co de Phone Number [facility] [address] [place] [address] * CV ECHO, [facility] INTRAOPERATIVE (01/29/2024 12:22 PM EDT) Pathologist [facility] LEFT VENTRICULAR EJECTION FRACTION 65 % [facility] 01/29/2024 8:35 AM EDT Shelbi BLISS ECHOCARDIOLOGY [facility] * ACT, POINT OF CARE (01/29/2024 12:19 PM EDT) ACT 120 50 - 1,000 secs 01/29/2024 12:36 PM EDT [facility] Blood 01/29/2024 12:1 9 PM EDT 01/29/2024 12:36 PM EDT Narrative [facility] [employer] - 01/29/2024 12:36 PM EDT NORMAL (NON-HEPARINIZED) 74-137 SECONDS HEPARINIZED 200+ SECONDS CRITICAL GREATER THAN 1000 SECONDS Aravind Rust MD LAB POINT O F CARE TEST DOCKED DEVICE UNSOLICITED RESULTS Performing Organization Address [facility] Co de Phone Number [facility] [address] [place] [address] * ACT, POINT OF CARE (01/29/2024 11:42 AM EDT) [facility] ACT 363 50 - 1,000 secs 01/29/2024 12:36 PM EDT [facility] Blood 01/29/2024 11:4 2 AM EDT 01/29/2024 12:36 PM EDT Narrative [facility] [employer] - 01/29/2024 12:36 PM EDT NORMAL (NON-HEPARINIZED) 74-137 SECONDS HEPARINIZED 200+ SECONDS CRITICAL GREATER THAN 1000 SECONDS Aravind Rust MD LAB POINT O F CARE TEST DOCKED DEVICE UNSOLICITED RESULTS Performing Organization Address [facility] de Phone Number [facility] [address], [place] [id number] * (ABNORMAL) BLOOD GAS WITH CHEMISTRY, POINT OF CARE (01/29/2024 11:24 AM EDT) [facility] Draw Site Arterial Draw 01/29/2024 12:36 PM EDT [facility] pH i-STAT 7.380 7.350 - 7.450 01/29/2024 12:36 PM EDT [facility] pCO2 i-STAT 36.9 35.0 - 45.0 mm Hg 01/29/2024 12:36 PM EDT [facility] pO2 i-STAT 227(H) 75 - 100 mm Hg 01/29/2024 12:36 PM EDT [facility] Base Excess i-STAT -3(L) -2 - 2 mmol/L 01/29/2024 12:36 PM EDT [facility] Bicarbonate i-STAT 21.8(L) 23.0 - 31.0 mmol/L 01/29/2024 12:36 PM EDT [facility] O2 Saturation i-STAT 100.0(H) 94.0 - 98.0 % 01/29/2024 12:36 PM EDT [facility] Glucose i-STAT 236(H) 70 - 120 mg/dL 01/29/2024 12:36 PM EDT [facility] Potassium i-STAT 5.1 3.5 - 5.1 mmol/L 01/29/2024 12:36 PM EDT [facility] Sodium i-STAT 134(L) 135 - 146 mmol/L 01/29/2024 12:36 PM EDT [facility] Calcium Ionized i-STAT 1.01(L) 1.13 - 1.32 mmol/L 01/29/2024 12:36 PM EDT [facility] Hemoglobin i-STAT 10.9(L) 14.0 - 16.8 g/dL 01/29/2024 12:36 PM EDT [facility] Hematocrit i-STAT 32(L) 40 - 48 % 01/29/2024 12:36 PM EDT [facility] Arterial Draw 01/29/2024 11: 24 AM EDT 01/29/2024 12:36 PM EDT Aravind Rust MD LAB POINT O F CARE TEST DOCKED DEVICE UNSOLICITED RESULTS [facility] [address] [place] [address] * ACT, POINT OF CARE (01/29/2024 11:23 AM EDT) ACT 358 50 - 1,000 secs 01/29/2024 12:36 PM EDT [facility] Blood 01/29/2024 11:2 3 AM EDT 01/29/2024 12:36 PM EDT Narrative [facility] - 01/29/2024 12:36 PM EDT NORMAL (NON-HEPARINIZED) 74-137 SECONDS HEPARINIZED 200+ SECONDS CRITICAL GREATER THAN 1000 SECONDS Aravind Rust MD LAB POINT O F CARE TEST DOCKED DEVICE UNSOLICITED RESULTS [facility] [address] [place] [address] * ACT, POINT OF CARE (01/29/2024 10:58 AM EDT) [facility] ACT 509 50 - 1,000 secs 01/29/2024 12:36 PM EDT [facility] Blood 01/29/2024 10:5 8 AM EDT 01/29/2024 12:36 PM EDT [facility] - 01/29/2024 12:36 PM EDT NORMAL (NON-HEPARINIZED) 74-137 SECONDS HEPARINIZED 200+ SECONDS CRITICAL GREATER THAN 1000 SECONDS Aravind Rust MD LAB POINT O F CARE TEST DOCKED DEVICE UNSOLICITED RESULTS Performing Organization Address [facility]/ZIP Co de Phone Number [address] [address] * ACT, POINT OF CARE (01/29/2024 10:41 AM EDT) [facility] ACT 428 50 - 1,000 secs 01/29/2024 12:36 PM EDT [facility] Blood 01/29/2024 10:4 1 AM EDT 01/29/2024 12:36 PM EDT [facility] - 01/29/2024 12:36 PM EDT NORMAL (NON-HEPARINIZED) 74-137 SECONDS HEPARINIZED 200+ SECONDS CRITICAL GREATER THAN 1000 SECONDS Aravind Rust MD LAB POINT O F CARE TEST DOCKED DEVICE UNSOLICITED RESULTS [facility] [address] [place] [address] * ACT, POINT OF CARE (01/29/2024 10:31 AM EDT) [facility] ACT 385 50 - 1,000 secs 01/29/2024 12:36 PM EDT [facility] Blood 01/29/2024 10:3 1 AM EDT 01/29/2024 12:36 PM EDT N[facility]ative [facility] [employer] - 01/29/2024 12:36 PM EDT NORMAL (NON-HEPARINIZED) 74-137 SECONDS HEPARINIZED 200+ SECONDS CRITICAL GREATER THAN 1000 SECONDS Aravind Rust MD LAB POINT O F CARE TEST DOCKED DEVICE UNSOLICITED RESULTS Performing Organization Address [facility] Co de Phone Number [facility] [address] [place] [address] * ACT, POINT OF CARE (01/29/2024 10:12 AM EDT) ACT 369 50 - 1,000 secs 01/29/2024 12:36 PM EDT [facility] Blood 01/29/2024 10:1 2 AM EDT 01/29/2024 12:36 PM EDT [facility] [employer] - 01/29/2024 12:36 PM EDT NORMAL (NON-HEPARINIZED) 74-137 SECONDS HEPARINIZED 200+ SECONDS CRITICAL GREATER THAN 1000 SECONDS Aravind Rust MD LAB POINT O F CARE TEST DOCKED DEVICE UNSOLICITED RESULTS Performing Organization Address [facility] Co de Phone Number [facility] [address] [place] [address] * TEG (THROMBOELASTOGRAPH), HEPARINASE (01/29/2024 9:56 AM EDT) Reaction Time 7.4 2.5 - 8.3 minutes 01/29/2024 11:43 AM EDT [facility] Kinetics Time 2.6 0.5 - 3.7 minutes 01/29/2024 11:43 AM EDT [facility] Alpha Angle 55.9 46.8 - 78.4 degrees 01/29/2024 11:43 AM EDT [facility] Maximum Amplitude 53.2 50.6 - 72.5 mm 01/29/2024 11:43 AM EDT LABORATORY C Coagulation Index -2.8 -3.0 - 3.0 01/29/2024 11:43 AM EDT LABORATORY C Percent Lysis 30 0.0 0.0 - 7.5 % 024 11:43 AM EDT LABORATORY [facility] Comment:This is an appended report. These results have been appended to a previously preliminary verified report. Blood Venous blood specimen / Unknown Venipuncture / Unknown 01/29/2024 9:56 AM EDT 01/29/2024 10:06 AM EDT Aravind Rust MD LAB BLOOD O RDERAGUY Performing Organization Address [facility] de Phone Number LABORATORY [facility] [address] [place] [address] * (ABNORMAL) TEG (THROMBOELASTOGRAPH) (01/29/2024 9:56 AM EDT) Reaction Time >20.0(H) 2.5 - 8.3 minutes 01/29/2024 11:01 AM EDT [facility]ORY [facility] Blood Venous blood specimen / Unknown Venipuncture / Unknown 01/29/2024 9:56 AM EDT 01/29/2024 10:06 AM EDT Narrative LAB[facility]ATORY [facility] - 01/29/2024 11:01 AM EDT If R time > 20 minutes and no clot formed suggesting hypocoagulable state or interfering substance (anticoagulation). Consider resubmitting a new sample and/or checking PT/INR, aPTT, fibrinogen, and platelet count. If R time > 20 minutes and no clot formed suggesting hypocoagulable state or interfering substance (anticoagulation). Consider resubmitting a new sample and/or checking PT/INR, aPTT, fibrinogen, and platelet count. Aravind Rust MD LAB BLOOD O RDERAGUY Performing Organization Address [facility] de Phone Number LABORATORY [address] [address] * (ABNORMAL) WHOLE BLOOD PROFILE, VENOUS (01/29/2024 9:56 AM EDT) Temperature 37.0 C 01/29/2024 10:11 AM EDT LAB[facility]ATORY [facility] pH, Venous 7.311(L) 7.320 - 7.430 units 01/29/2024 10:11 AM EDT [facility] pCO2, Venous 52.9 40.0 - 60.0 mmHg 01/29/2024 10:11 AM EDT [facility] pO2, Venous 41.0 25.0 - 50.0 mmHg 01/29/2024 10:11 AM EDT [facility] Base Excess, Venous -0.1 -2.0 - 2.0 mmol/L 01/29/2024 10:11 AM EDT [facility] HGB 9.5(L) 14.0 - 16.8 g/dL 01/29/2024 10:11 AM EDT [facility] Oxyhemoglobin, Venous 67.1 40.0 - 85.0 % total Hgb 01/29/2024 10:11 AM EDT [facility] Carboxyhemoglobi n, Whole Blood 1.4 <=1.5 % total Hgb 01/29/2024 10:11 AM EDT [facility] Comment:Smokers: 0-9.0 % Methemoglobin, Whole Blood 0.6 <=1.5 % total Hgb 01/29/2024 10:11 AM EDT [facility] Reduced Hemoglobin, Venous 30.9 % total Hgb 01/29/2024 10:11 AM EDT [facility] O2 Content, Venous 9.0 7.0 - 18.0 %vol 01/29/2024 10:11 AM EDT [facility] Potassium, Whole Blood 4.6 3.5 - 5.1 mmol/L 01/29/2024 10:11 AM EDT [facility] Sodium, Whole Blood 134(L) 135 - 146 mmol/L 01/29/2024 10:11 AM EDT [facility] Chloride, Whole Blood 101 98 - 107 mmol/L 01/29/2024 10:11 AM EDT [facility] Calcium, Ionized, Whole Blood 1.04(L) 1.13 - 1.32 mmol/L 01/29/2024 10:11 AM EDT [facility] Anion Gap, Whole Blood 6.2(L) 7.0 - 15.0 mmol/L 01/29/2024 10:11 AM EDT [facility] Glucose, Whole Blood 175(H) 70 - 120 mg/dL 01/29/2024 10:11 AM EDT [facility] Bicarbonate, Whole Blood 25.9 23.0 - 31.0 mmol/L 01/29/2024 10:11 AM EDT LABORATORY C Blood Venous blood specimen / Unknown Venipuncture / Unknown 01/29/2024 9:56 AM EDT 01/29/2024 10:06 AM EDT Aravind Rust MD LAB BLOOD O RDERABLES LAB[facility]ORY [facility] [address] [place] [address] * (ABNORMAL) BLOOD GAS, ARTERIAL (01/29/2024 9:56 AM EDT) Temperature 37.0 C 01/29/2024 10:11 AM EDT [facility] pH, Arterial 7.366 7.350 - 7.450 units 01/29/2024 10:11 AM EDT [facility] pCO2, Arterial 42.7 35.0 - 45.0 mmHg 01/29/2024 10:11 AM EDT [facility] pO2, Arterial 186.0(H) 75.0 - 100.0 mmHg 01/29/2024 10:11 AM EDT [facility] Base Excess, Arterial -0.9 -2.0 - 2.0 mmol/L 01/29/2024 10:11 AM EDT [facility] HGB 9.5(L) 14.0 - 16.8 g/dL 01/29/2024 10:11 AM EDT [facility] Oxyhemoglobin, Arterial 98.0 94.0 - 99.0 % total Hgb 01/29/2024 10:11 AM EDT [facility] Carboxyhemoglob in, Whole Blood 1.4 <=1.5 % total Hgb 01/29/2024 10:11 AM EDT [facility] Comment:Smokers: 0-9.0 % Methemoglobin, Whole Blood 0.6 <=1.5 % total Hgb 01/29/2024 10:11 AM EDT [facility] Reduced Hemoglobin, Arterial 0.0 0.0 - 5.0 % total Hgb 01/29/2024 10:11 AM EDT [facility] O2 Content, Arterial 13.5(L) 15.0 - 24.0 %vol 01/29/2024 10:11 AM EDT [facility] FiO2 Not Provided % 01/29/2024 10:11 AM EDT [facility] O2 Flow, Arterial Not Provided L/min 01/29/2024 10:11 AM EDT LABORATORY C Bicarbonate, Whole Blood 23.8 23.0 - 31.0 mmol/L 01/29/2024 10:11 AM EDT LABORATORY C Blood Arterial blood specimen / Unknown Arterial Puncture / Unknown 01/29/2024 9:56 AM EDT 01/29/2024 10:06 AM EDT Aravind Rust MD LAB BLOOD O RDERABLES Performing Organization Address City/[facility]/ZIP Co de Phone Number LABORATORY [facility] [address] [place] [address] * (ABNORMAL) PLT (01/29/2024 9:56 AM EDT) PLT 116(L) 140 - 400 K/uL 01/29/2024 10:21 AM EDT LAB[facility]ORY [facility] Blood Venous blood specimen / Unknown Venipuncture / Unknown 01/29/2024 9:56 AM EDT 01/29/2024 10:06 AM EDT Aravind Rust MD LAB BLOOD O RDERABLES Performing Organization Address [facility] Co de Phone Number LABORATORY [facility] [address] [place] [address] * FIBRINOGEN (01/29/2024 9:56 AM EDT) Fibrinogen 183 178 - 467 mg/dL 01/29/2024 11:09 AM EDT LABORATORY [facility] Blood Venous blood specimen / Unknown Venipuncture / Unknown 01/29/2024 9:56 AM EDT 01/29/2024 10:06 AM EDT Aravind Rust MD LAB BLOOD O RDERABLES Performing Organization Address City/[facility]/ZIP Co de Phone Number LABORATORY [facility] [address] [place] [address] * (ABNORMAL) BLOOD GAS WITH CHEMISTRY, POINT OF CARE (01/29/2024 9:50 AM EDT) Draw Site Arterial Draw 01/29/2024 12:35 PM EDT [facility] pH i-STAT 7.339(L) 7.350 - 7.450 01/29/2024 12:35 PM EDT [employer] pCO2 i-STAT 47.0(H) 35.0 - 45.0 mm Hg 01/29/2024 12:35 PM EDT [facility] [employer] [facility] pO2 i-STAT 188(H) 75 - 100 mm Hg 01/29/2024 12:35 PM EDT [facility] [employer] Base Excess i-STAT -1 -2 - 2 mmol/L 01/29/2024 12:35 PM EDT [facility] [employer] Bicarbonate i-STAT 25.3 23.0 - 31.0 mmol/L 01/29/2024 12:35 PM EDT [facility] [employer] O2 Saturation i-STAT 100.0(H) 94.0 - 98.0 % 01/29/2024 12:35 PM EDT [facility] [employer] Glucose i-STAT 151(H) 70 - 120 mg/dL 01/29/2024 12:35 PM EDT [facility] [employer] Potassium i-STAT 4.5 3.5 - 5.1 mmol/L 01/29/2024 12:35 PM EDT [facility] [employer] Sodium i-STAT 136 135 - 146 mmol/L 01/29/2024 12:35 PM EDT [facility] [employer] Calcium Ionized i-STAT 1.08(L) 1.13 - 1.32 mmol/L 01/29/2024 12:35 PM EDT [facility] [employer] Hemoglobin i-STAT 11.6(L) 14.0 - 16.8 g/dL 01/29/2024 12:35 PM EDT [facility] [employer] Hematocrit i-STAT 34(L) 40 - 48 % 01/29/2024 12:35 PM EDT [employer] Arterial Draw 01/29/2024 9:5 0 AM EDT 01/29/2024 12:35 PM EDT Aravind Rust MD LAB POINT O F CARE TEST DOCKED DEVICE UNSOLICITED RESULTS [facility] [address] [place] [address] * ACT, POINT OF CARE (01/29/2024 9:49 AM EDT) ACT 601 50 - 1,000 secs 01/29/2024 12:36 PM EDT [facility] Blood 01/29/2024 9:49 AM EDT 01/29/2024 12:36 PM EDT Narrative [facility] - 01/29/2024 12:36 PM EDT NORMAL (NON-HEPARINIZED) 74-137 SECONDS HEPARINIZED 200+ SECONDS CRITICAL GREATER THAN 1000 SECONDS Aravind Rust MD LAB POINT O F CARE TEST DOCKED DEVICE UNSOLICITED RESULTS Performing Organization Address [facility]/ZIP Co de Phone Number [facility] [address] [place] [address] * ACT, POINT OF CARE (01/29/2024 9:26 AM EDT) ACT 839 50 - 1,000 secs 01/29/2024 12:36 PM EDT [facility] Blood 01/29/2024 9:26 AM EDT 01/29/2024 12:36 PM EDT Narrative [facility] - 01/29/2024 12:36 PM EDT NORMAL (NON-HEPARINIZED) 74-137 SECONDS HEPARINIZED 200+ SECONDS CRITICAL GREATER THAN 1000 SECONDS Aravind Rust MD LAB POINT O F CARE TEST DOCKED DEVICE UNSOLICITED RESULTS Performing Organization Address City/[facility]/ZIP Co de Phone Number [facility] [address] [place] [address] * ACT, POINT OF CARE (01/29/2024 9:26 AM EDT) [facility] ACT 888 50 - 1,000 secs 01/29/2024 12:35 PM EDT [facility] Blood 01/29/2024 9:26 AM EDT 01/29/2024 12:35 PM EDT Narrative [facility] [employer] [facility] - 01/29/2024 12:35 PM EDT NORMAL (NON-HEPARINIZED) 74-137 SECONDS HEPARINIZED 200+ SECONDS CRITICAL GREATER THAN 1000 SECONDS Aravind Rust MD LAB POINT O F CARE TEST DOCKED DEVICE UNSOLICITED RESULTS [facility] [address] [place] [address] * CV ECHO, BUFFY INTRAOPERATIVE (01/29/2024 9:00 AM EDT) [facility] LEFT VENTRICULAR EJECTION FRACTION 55 % [facility] 01/29/2024 8:11 AM EDT Shelbi BLISS ECHOCARDIOLOGY [facility] * (ABNORMAL) BLOOD GAS WITH CHEMISTRY, POINT OF CARE (01/29/2024 8:28 AM EDT) [facility] Draw Site Arterial Draw 01/29/2024 12:35 PM EDT [facility] [employer] [facility] pH i-STAT 7.379 7.350 - 7.450 01/29/2024 12:35 PM EDT [facility] pCO2 i-STAT 40.6 35.0 - 45.0 mm Hg 01/29/2024 12:35 PM EDT [facility] [employer] [facility] pO2 i-STAT 327(H) 75 - 100 mm Hg 01/29/2024 12:35 PM EDT [facility] Base Excess i-STAT -1 -2 - 2 mmol/L 01/29/2024 12:35 PM EDT [employer] [facility] Bicarbonate i-STAT 24.0 23.0 - 31.0 mmol/L 01/29/2024 12:35 PM EDT [facility] O2 Saturation i-STAT 100.0(H) 94.0 - 98.0 % 01/29/2024 12:35 PM EDT [facility] Glucose i-STAT 145(H) 70 - 120 mg/dL 01/29/2024 12:35 PM EDT [facility] Potassium i-STAT 4.2 3.5 - 5.1 mmol/L 01/29/2024 12:35 PM EDT [facility] Sodium i-STAT 137 135 - 146 mmol/L 01/29/2024 12:35 PM EDT [facility] Calcium Ionized i-STAT 1.18 1.13 - 1.32 mmol/L 01/29/2024 12:35 PM EDT [facility] Hemoglobin i-STAT 13.3(L) 14.0 - 16.8 g/dL 01/29/2024 12:35 PM EDT [facility] Hematocrit i-STAT 39(L) 40 - 48 % 01/29/2024 12:35 PM EDT [facility] Arterial Draw 01/29/2024 8:2 8 AM EDT 01/29/2024 12:35 PM EDT Aravind Rust MD LAB POINT O F CARE TEST DOCKED DEVICE UNSOLICITED RESULTS [facility] [address] [place] [address] * ACT, POINT OF CARE (01/29/2024 8:27 AM EDT) ACT 141 50 - 1,000 secs 01/29/2024 12:36 PM EDT [facility] Blood 01/29/2024 8:27 AM EDT 01/29/2024 12:36 PM EDT Narrative [facility] - 01/29/2024 12:36 PM EDT NORMAL (NON-HEPARINIZED) 74-137 SECONDS HEPARINIZED 200+ SECONDS CRITICAL GREATER THAN 1000 SECONDS Aravind Rust MD LAB POINT O F CARE TEST DOCKED DEVICE UNSOLICITED RESULTS [facility] [address] [place] [address] * (ABNORMAL) GLUCOSE METER, POINT OF CARE (01/29/2024 6:21 AM EDT) Glucose Meter 136(H) 70 - 120 mg/dL 01/29/2024 6:24 AM EDT [facility] Blood Whole blood specimen / Unknown 01/29/2024 6:21 AM EDT 01/29/2024 6:24 AM EDT Aravind Rust MD LAB POINT O F CARE TEST DOCKED DEVICE UNSOLICITED RESULTS [facility] [address] [place] [address] * PREPARE PLASMA (01/29/2024 5:50 AM EDT) Unit Product Code [id number] 01/29/2024 12:54 PM EDT LABORATORY C BLOOD BANK Unit Number [id number] 01/29/2024 12:54 PM EDT [facility] BLOOD BANK Unit ABO A 01/29/2024 12:54 PM EDT [facility] BLOOD BANK Unit Rh POS 01/29/2024 12:54 PM EDT [facility] BLOOD BANK Unit Status RE 01/29/2024 12:54 PM EDT [facility] BLOOD BANK Unit Blood Type APOS 01/29/2024 12:54 PM EDT [facility] BLOOD BANK Unit Expiration [id number] 01/29/2024 12:54 PM EDT [facility] BLOOD BANK Unit Barcode 6200 01/29/2024 12:54 PM EDT [facility] BLOOD BANK Unit Product Code [id number] 01/29/2024 12:54 PM EDT [facility] BLOOD BANK Unit Number [id number] 01/29/2024 12:54 PM EDT [facility] BLOOD BANK Unit ABO A 01/29/2024 12:54 PM EDT [facility] BLOOD BANK Unit Rh POS 01/29/2024 12:54 PM EDT [facility] BLOOD BANK Unit Status RE 01/29/2024 12:54 PM EDT [facility] BLOOD BANK Unit Blood Type APOS 01/29/2024 12:54 PM EDT [facility] BLOOD BANK Unit Expiration [id number] 01/29/2024 12:54 PM EDT [facility] BLOOD BANK Unit Barcode 6200 01/29/2024 12:54 PM EDT [facility] BLOOD BANK 01/29/2024 5:50 AM EDT Callum Finney MD BLD BANK PRODUCT ORDERABLES LAB[facility]ATORY [facility] BLOOD BANK [address] [place] [address] * PREPARE PACKED RED BLOOD CELLS (01/29/2024 5:50 AM EDT) Unit Product Code [id number] 01/29/2024 12:54 PM EDT [facility] BLOOD BANK Unit Number [id number] 01/29/2024 12:54 PM EDT [facility] BLOOD BANK Unit ABO A 01/29/2024 12:54 PM EDT [facility] BLOOD BANK Unit Rh POS 01/29/2024 12:54 PM EDT LAB[facility] BLOOD BANK Unit Crossmatch Compatible 01/29/2024 5:54 AM EDT [facility] BLOOD BANK Unit Status RE 01/29/2024 12:54 PM EDT [facility] BLOOD BANK Unit Blood Type APOS 01/29/2024 12:54 PM EDT [facility] BLOOD BANK Unit Expiration [id number] 01/29/2024 12:54 PM EDT [facility] BLOOD BANK Unit Barcode 6200 01/29/2024 12:54 PM EDT [facility] BLOOD BANK Unit Product Code [id number] 01/29/2024 12:54 PM EDT [facility] BLOOD BANK Unit Number [id number] 01/29/2024 12:54 PM EDT LAB[facility] BLOOD BANK Unit ABO A 01/29/2024 12:54 PM EDT [facility] BLOOD BANK Unit Rh POS 01/29/2024 12:54 PM EDT [facility] BLOOD BANK Unit Crossmatch Compatible 01/29/2024 5:54 AM EDT LAB[facility] BLOOD BANK Unit Status RE 01/29/2024 12:54 PM EDT LABORATORY [facility] BLOOD BANK Unit Blood Type APOS 01/29/2024 12:54 PM EDT LABORATORY [facility] BLOOD BANK Unit Expiration [id number] 01/29/2024 12:54 PM EDT LABORATORY [facility] BLOOD BANK Unit Barcode 6200 01/29/2024 12:54 PM EDT LAB[facility]ATORY [facility] BLOOD BANK 01/29/2024 5:50 AM EDT Callum Finney MD BLD BANK PRODUCT ORDERABLES LABORATORY [facility] BLOOD BANK [address] [place] [address] documented in this encounter Visit Diagnoses Diagnosis 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) Valvular heart disease Endocarditis, valve unspecified, unspecified cause S/P CABG (coronary artery bypass graft) Postsurgical aortocoronary bypass status S/P AVR (aortic valve replacement) Heart valve replaced by other means Status post surgery Nonrheumatic aortic valve stenosis Aortic valve disorders Dyslipidemia, goal LDL below 100 Other and unspecified hyperlipidemia Nonrheumatic aortic valve stenosis Aortic valve disorders Diabetes mellitus (HCC) Type II or unspecified type diabetes mellitus without mention of complication, not stated as uncontrolled CLL (chronic lymphocytic leukemia) (HCC) Chronic lymphoid leukemia, without mention of having achieved remission Dyslipidemia, goal LDL below 100 Other and unspecified hyperlipidemia ALIE (obstructive sleep apnea) Obstructive sleep apnea (adult) (pediatric) Dyslipidemia, goal LDL below 70 Other and unspecified hyperlipidemia S/P AVR (aortic valve replacement) Heart valve replaced by other means documented in this encounter Administered Medications Inactive Administered Medications - up to 3 most recent administrations Medication Order MAR Action Action Date Dose Rate Site Acetaminophen (Ofirmev) inj 1,000 mg 1,000 mg, Intravenous, ONCE, 1 dose, On Silvana 01/29/24 at 1830, Administer over 15 Minutes, Administer undiluted over 15 minutes! NOTE: Maximum of 4000 mg per 24 hours of acetaminophen from all acetaminophen containing products., Indication: Patient is strictly NPO New Bag 01/29/2024 6:42 PM EDT 1,000 mg 400 mL/hr Acetaminophen (Tylenol) tab 975 mg 975 mg, Oral, Q8H, First dose on Fri01/29/24 at 1400, Last dose on Fri02/03/24 at 0600, For 5 days, Avoid in patients with severe hepatic impairment or severe active liver disease. Use for 5 days, Post-op Given 02/02/2024 6:10 AM EDT 975 mg Given 02/01/2024 10:03 PM EDT 975 mg Given 02/01/2024 12:39 PM EDT 975 mg Acetaminophen (Tylenol) tab 975 mg 975 mg, Oral, Q6H PRN Pain, Mild, Starting on Fri02/03/24 at 0000, Until Fri02/02/24 at 1501, Begin after around the clock acetaminophen order discontinued (S+5). Maximum 4 g acetaminophen/day. Avoid in patients with severe hepatic impairment or severe active liver disease., Post-op albumin (human) (Plasbumin-5) 5 % infusion 25 g Intravenous, Please scan [employer] "square" 2D barcode to record Lot/ Expiration, ONCE, 1 dose, On 01/31/24 at 1145 New Bag 01/31/2024 11:46 AM EDT 25 g 500 mL/hr Amiodarone (Cordarone) 150 mg in dextrose 100 mL BOLUS 150 mg, Central IV, ONCE, 1 dose, On 01/31/24 at 0615, Administer over 10 Minutes, USE 0.22 micron inline filter New Bag 01/31/2024 6:15 AM EDT 150 mg 600 mL/hr Amiodarone (Cordarone) 150 mg in dextrose 100 mL BOLUS 150 mg, Central IV, ONCE, 1 dose, On 01/31/24 at 0615, Administer over 10 Minutes, USE 0.22 micron inline filter New Bag 01/31/2024 5:35 AM EDT 150 mg 600 mL/hr Amiodarone (Cordarone) 150 mg in dextrose 100 mL BOLUS 150 mg, Central IV, ONCE, 1 dose, On 01/31/24 at 0700, Administer over 10 Minutes, USE 0.22 micron inline filter New Bag 01/31/2024 6:30 AM EDT 150 mg 600 mL/hr Amiodarone (Cordarone) 150 mg in dextrose 100 mL BOLUS 150 mg, Central IV, ONCE, 1 dose, On 01/31/24 at 0815, Administer over 10 Minutes, USE 0.22 micron inline filter New Bag 01/31/2024 7:42 AM EDT 150 mg 600 mL/hr Amiodarone (Cordarone) 150 mg in dextrose 100 mL BOLUS 150 mg, Central IV, ONCE, 1 dose, On 01/31/24 at 1030, Administer over 10 Minutes, USE 0.22 micron inline filter New Bag 01/31/2024 10:19 AM EDT 150 mg 600 mL/hr Amiodarone (Cordarone) 150 mg in dextrose 100 mL BOLUS 150 mg, Peripheral IV, ONCE, 1 dose, On 02/01/24 at 2345, Administer over 10 Minutes, USE 0.22 micron inline filter New Bag 02/01/2024 11:23 PM EDT 150 mg 600 mL/hr amiodarone (Cordarone) 900 mg in NSS 500 mL INFUSION Central IV, 1 mg/min (33.3333 mL/hr, rounded to 33.33 mL/hr), Amiodarone to be run using Smart pump mode: Pump is programmed to *ALERT* at 200 ml to notify of RATE change from 1mg/min to go to 0.5 mg/min. Use 0.22 micron filter., CONTINUOUS, Starting on 01/31/24 at 0815, Until 01/31/24 at 1414 Rate Verify 01/31/2024 11:00 AM EDT 1 mg/min 33.33 mL/hr New Bag 01/31/2024 8:47 AM EDT 1 mg/min 33.33 mL/hr amiodarone (Cordarone) 900 mg in NSS 500 mL INFUSION Central IV, 0.5 mg/min (16.6667 mL/hr, rounded to 16.67 mL/hr), Amiodarone to be run using Smart pump mode: Pump is programmed to *ALERT* at 200 ml to notify of RATE change from 1mg/min to go to 0.5 mg/min. Use 0.22 micron filter., CONTINUOUS CALL PHARMACY TO DISPENSE, Starting on 01/31/24 at 1345, Until 01/31/24 at 2008 Rate Verify 01/31/2024 8:00 PM EDT 0.5 mg/min 16.66 mL/hr Restarted 01/31/2024 7:25 PM EDT 0.5 mg/min 16.66 mL/hr Rate Verify 01/31/2024 2:00 PM EDT 0.5 mg/min 16.66 mL/hr amiodarone (Cordarone) 900 mg in NSS 500 mL INFUSION Central IV, 0.5 mg/min (16.6667 mL/hr, rounded to 16.67 mL/hr), DO NOT RENEW Amiodarone to be run using Smart pump mode: Pump is programmed to *ALERT* at 200 ml to notify of RATE change from 1mg/min to go to 0.5 mg/min. Use 0.22 micron filter., CONTINUOUS CALL PHARMACY TO DISPENSE, Starting on 01/31/24 at 2045, Until 02/01/24 at 1831 Rate Verify 02/01/2024 7:00 AM EDT 0.5 mg/min 16.66 mL/hr Rate Verify 02/01/2024 6:00 AM EDT 0.5 mg/min 16.66 mL/hr Rate Verify 02/01/2024 5:00 AM EDT 0.5 mg/min 16.66 mL/hr amiodarone (Cordarone) tab 400 mg 400 mg, Oral, WITH MEALS, First dose on Fri01/31/24 at 0815, Until Discontinued Given 02/02/2024 8:32 AM EDT 400 mg Given 02/01/2024 4:37 PM EDT 400 mg Given 02/01/2024 12:39 PM EDT 400 mg aspirin chew tab 81 mg 81 mg, Oral, Daily(AM), First dose on Fri01/30/24 at 0900, Until Discontinued, Start on POD#1, Post-op Given 02/02/2024 8:33 AM EDT 81 mg Given 02/01/2024 8:00 AM EDT 81 mg Given 01/31/2024 8:09 AM EDT 81 mg aspirin supp 300 mg 300 mg, Rectal, ONCE, On Silvana 01/29/24 at 1800, For 1 dose, Give 6 hours after arrival Refrigerate, Post-op Given 01/29/2024 7:15 PM EDT 300 mg atropine sulfate inj 1 mg 1 mg, IV Push, PRN Other, X1 PRN hemodynamically significant bradydysrythmias and call CT Surgeon lenin DIAZ, Starting on Silvana 01/29/24 at 1307, Until Fri02/02/24 at 1501, For 1 dose, Post-op Bisacodyl (Dulcolax) supp 10 mg 10 mg, Rectal, DAILY PRN Constipation, Starting on Fri01/31/24 at 0800, Until Fri02/02/24 at 1501, Post-op calcium CHLORide 10 % inj 1 g 1 g, IV Push, PRN Other, Calcium Replacement, Starting on Silvana 01/29/24 at 1307, Until Fri02/02/24 at 1501, For 1 dose, Ionized calcium is less than 1 and MAP less than 80, Post-op calcium CHLORide 10 % inj 1 g 1 g, Intravenous, ONCE, On Silvana 01/29/24 at 1345, For 1 dose Given 01/29/2024 1:36 PM EDT 1 g calcium CHLORide 10 % inj 1 g 1 g, Intravenous, ONCE, On Sil[facility]ana 01/29/24 at 1600, For 1 dose Given 01/29/2024 4:15 PM EDT 1 g ceFAZolin in dextrose (Ancef) ivpb 2 g 2 g, IV Piggyback, Q8HNOW, 5 doses, First dose on Sil[facility]ana 01/29/24 at 2000, Last dose on Fri01/31/24 at 0400, Post-op New Bag 01/31/2024 4:14 AM EDT 2 g 100 mL/hr New Bag 01/30/2024 7:51 PM EDT 2 g 100 mL/hr Rate Verify 01/30/2024 1:00 PM EDT 4 g/hr 100 mL/hr chlorHEXIDINE (Periogard) 0.12 % oral rinse 15 mL 15 mL, Oral mucosal membrane, BID (08,1999), First dose on Silvana 01/29/24 at 2000, Until Discontinued, Include oral/gum/tooth brushing with medication. Use prepackaged oral kit suction tooth brush if available., Post-op Given 01/29/2024 8:35 PM EDT 15 mL CYANOCOBALAMIN (vitamin B-12) tab 1,000 mcg 1,000 mcg, Oral, Daily(AM), First dose on Fri01/30/24 at 0930, Until Discontinued Given 02/02/2024 8:33 AM EDT 1,00 0 mcg Given 02/01/2024 8:00 AM EDT 1,000 mcg Given 01/31/2024 8:09 AM EDT 1,000 mcg dextrose 50% inj 25 mL 25 mL, IV Push, PRN Hypoglycemia, Other, For blood glucose 54 - 69 mg/dL or 70 - 100 mg/dL with symptoms AND patient is unresponsive, NPO, OR unable to swallow, Starting on 01/31/24 at 0053, Until Fri02/02/24 at 1501, Administer IV. Recheck blood glucose after 15 minutes. Notify provider. dextrose 50% inj 50 mL 50 mL, IV Push, PRN Hypoglycemia, Other, For blood glucose below 54 mg/dL AND patient unresponsive, NPO, OR unable to swallow, Starting on 01/31/24 at 0053, Until Fri02/02/24 at 1501, Administer IV. Recheck blood glucose in 15 minutes. Notify provider. Docusate Sodium (Colace) cap 100 mg 100 mg, Oral, BID (.AM/PM), First dose on Fri01/30/24 at 0900, Until Discontinued, Hold and administer syrup formulation if not able to take this tab PO., Post-op Given 02/02/2024 8:33 AM EDT 100 mg Given 02/01/2024 10:03 PM EDT 100 mg Given 02/01/2024 8:00 AM EDT 100 mg Famotidine (Pepcid) inj 20 mg 20 mg, Intravenous, Q12H, First dose on Fri01/29/24 at 2100, Last dose on Fri01/30/24 at 0900, For 2 doses, Start at first dose interval postop. Give IV push over 2 minutes., Post-op Given 01/30/2024 8:05 AM EDT 20 mg Given 01/29/2024 8:39 PM EDT 20 mg fluticasone (Flonase) nasal inhaler 2 [place] 2 [place], Each Nostril, Daily(AM), First dose on Fri01/30/24 at 0900, Until Discontinued, 50 mcg / Actuation Given 02/01/2024 8:01 AM EDT 2 Sprays Given 01/31/2024 8:11 AM EDT 2 Sprays Furosemide (Lasix) inj 40 mg 40 mg, IV Push, ONCE, On Fri01/30/24 at 0715, For 1 dose Given 01/30/2024 6:48 AM EDT 40 mg Furosemide (Lasix) inj 40 mg 40 mg, IV Push, BID (0900, 1600), First dose on 01/31/24 at 0645, Last dose on Fri01/31/24 at 1600, For 2 doses Given 01/31/2024 5:00 PM EDT 40 mg Given 01/31/2024 6:13 AM EDT 40 mg Furosemide (Lasix) inj 40 mg 40 mg, IV Push, BID (0900, 1600), First dose on 02/01/24 at 0900, Last dose on Fri02/01/24 at 1600, For 2 doses Given 02/01/2024 4:38 PM EDT 40 mg Given 02/01/2024 8:00 AM EDT 40 mg Furosemide (Lasix) tab 40 mg 40 mg, Oral, Daily(AM), First dose on Fri02/02/24 at 0900, Until Discontinued Given 02/02/2024 8:33 AM EDT 40 mg glucagon (Glucagen) inj 1 mg 1 mg, Intramuscular, PRN Hypoglycemia, Other, If patient is unresponsive, or NPO and has no IV access, Starting on 01/31/24 at 0053, Until Fri02/02/24 at 1501, NPO and no IV access with either 1) blood glucose less than 100 mg/dL and symptomatic OR 2) blood glucose less than 70 mg/dL and asymptomatic Glucose (Glutose 15) 40 % gel 15 g of glucose 15 g of glucose, Oral, PRN Hypoglycemia (low sugar), Other, For blood glucose 54 - 69 mg/dL or 70 - 100 mg/dL with symptoms AND patient alert WITH difficulty chewing/swallowing, Starting on 01/31/24 at 0053, Until Fri02/02/24 at 1501, Administer gel. Recheck blood glucose after 15 minutes. Notify provider. 37.5 gram tube = 15 grams glucose = 1 each Glucose (Glutose 15) 40 % gel 30 g of glucose 30 g of glucose, Oral, PRN Hypoglycemia (low sugar), Other, For blood glucose below 54 mg/dL AND patient alert WITH difficulty chewing/swallowing, Starting on 01/31/24 at 0053, Until 02/02/24 at 1501, Administer gel. Recheck blood glucose after 15 minutes. Notify provider. 37.5 gram tube = 15 grams glucose = 1 each glucose chew tab 16 g 16 g, Oral, PRN Hypoglycemia, Other, For blood glucose 54 - 69 mg/dL or 70 - 100 mg/dL with symptoms and patient alert without difficulty chewing/swallowing., Starting on 01/31/24 at 0053, Until 02/02/24 at 1501 Glycopyrrolate (Robinul) inj 0.6 mg 0.6 mg, Intravenous, ONCE PRN Other, Reversal of neuromuscular manuel, Starting on Silvana 01/29/24 at 1307, Until Silvana 01/29/24 at 1706, For 4 hours, Available in [employer]. If still chemically paralyzed after dose has been administered, contact provider for further guidance. WASTE INFO: Return waste medication to pharmacy in zip lock bag - SPC container., Post-op Given 01/29/2024 4:47 PM EDT 0.6 mg insulin aspart (NovoLOG) inj Subcutaneous, WITH MEALS, First dose on 01/31/24 at 0800, Until Discontinued, Dose equals 1 unit of insulin per 10 grams of carbohydrate consumed. Hold dose if patient does not eat Given 02/02/2024 9:07 AM EDT 3 Units Arm Right Upper Given 02/01/2024 4:38 PM EDT 4 Units Ar m Left Upper Given 02/01/2024 12:39 PM EDT 3 Units A rm Left Upper insulin aspart (NovoLOG) inj Subcutaneous, WITH MEALS, First dose on 01/31/24 at 0800, Until Discontinued, MEDIUM DOSE (Usual starting dose): Sliding Scale Correctional insulin may be given if the patient is NPO. Dose based on standard build from Insulin Calculator. Do not modify insulin doses in administration instructions!, Glucose less than 70 instructions: Obtain STAT lab blood glucose and call covering provider., Glucose 80-150 (units): 0, Glucose 151-200 (units): 2, Glucose 201-250 (units): 4, Glucose 251-300 (units): 6, Glucose greater than 300 (units): 8, Glucose greater than 300 instructions: Give suggested insulin dose and call covering provider. Given 01/31/2024 5:07 PM EDT 4 Units Arm Left Upper Given 01/31/2024 12:10 PM EDT 6 Units A rm Left Upper Given 01/31/2024 8:11 AM EDT 4 Units A bdomen Left Upper insulin aspart (NovoLOG) inj Subcutaneous, W/MEALS AND HS, First dose (after last modification) on 01/31/24 at 2230, Until Discontinued, MEDIUM DOSE (Usual starting dose): Sliding Scale Correctional insulin may be given if the patient is NPO. Dose based on standard build from Insulin Calculator. Do not modify insulin doses in administration instructions!, Glucose less than 70 instructions: Obtain STAT lab blood glucose and call covering provider., Glucose 80-150 (units): 0, Glucose 151-200 (units): 2, Glucose 201-250 (units): 4, Glucose 251-300 (units): 6, Glucose greater than 300 (units): 8, Glucose greater than 300 instructions: Give suggested insulin dose and call covering provider. Given 02/01/2024 10:05 PM EDT 2 Units Arm Left Upper Given 02/01/2024 4:38 PM EDT 2 Units Ar m Left Upper Given 02/01/2024 12:39 PM EDT 4 Units A rm Left Upper insulin REGULAR human 100 units in NSS 100 mL INFUSION Final Conc = 1 unit / mL Intravenous, at 1 mL/hr, Target Range for Blood Glucose = 100 to 130 mg/dl, CONTINUOUS, Starting on Fri01/29/24 at 1345, Until Fri01/31/24 at 0053, Post-op New Bag 01/31/2024 12:02 AM EDT 5 Units/hr 5 mL/hr Nurse Change 01/30/2024 11:02 PM EDT 8 Units/hr 8 mL/hr Rate Change 01/30/2024 9:39 PM EDT 8 Units/hr 8 mL/hr Iron Sucrose (Venofer) 300 mg in NSS 250 mL ivpb 300 mg, IV Piggyback, Daily(AM), 2 doses, First dose on Fri01/30/24 at 0930, Last dose on Fri01/31/24 at 0900, Administer over 90 Minutes New Bag 01/31/2024 8:22 AM EDT 300 mg 193.33 mL/hr Rate Verify 01/30/2024 12:00 PM EDT 199.9 mg/hr 193.3 mL/h r Rate Verify 01/30/2024 11:00 AM EDT 199.9 mg/hr 193.3 mL/h r isolyte-S pH 7.4 infusion Intravenous, at 1,000 mL/hr, During 1st 12hrs postop may give Isolyte, 500ml over 30 minutes x 1. If Systolic BP less than 100 and PA diastolic less than 15: may repeat x [address] Surgeon or PA-C if not immediately effective. Plasma-LYTE 148, isolyte-S, and isolyte-S pH 7.4 are considered equivalent - including for MAR barcode scanning., PRN, 2 doses, Starting on Fri01/29/24 at 1306, Until Fri01/30/24 at 0106, Post-op New Bag 01/30/2024 1:06 AM EDT 500 mL 1000 mL/hr New Bag 01/29/2024 11:13 PM EDT 500 mL 1000 mL/hr ketorolac (Toradol) 30 MG/ML inj 15 mg 15 mg, IV Push, ONCE, On Fri01/29/24 at 1830, For 1 dose Given 01/29/2024 6:08 PM EDT 15 mg magnesium sulfate 1 g in d5w 100mL LOCKED DOSE 1 g, IV Piggyback, PRN Other, Magnesium replacement, Starting on Fri01/29/24 at 1306, Until Fri02/02/24 at 1501, For 4 doses, 1. Serum creatinine must be less than 1.5 2. Current urine output must be greater than 30 mL/hr. Magnesium level 1.5 - 2.2: Give 1 gm over 1 hour x 1 dose Magnesium level less than 1.5: Give 1 gm over 1 hour x 2 doses Repeat serum magnesium level 1 hour after completion of 2nd dose, Post-op Rate Verify 01/31/2024 7:00 AM EDT 1 g/hr 100 mL/hr New Bag 01/31/2024 6:21 AM EDT 1 g 100 mL/hr New Bag 01/30/2024 5:51 AM EDT 1 g 100 mL/hr Menthol (Curlew) cough drop 1 Lozenge 1 Lozenge, Oral, Q2H PRN Sore throat, Starting on Fri01/30/24 at 1217, Until Fri02/02/24 at 1501 Given 01/30/2024 2:13 PM EDT 1 Lozenge MetFORMIN (Glucophage) tab 1,000 mg 1,000 mg, Oral, BID (AM/PM MEALS), First dose on [facility] 01/31/24 at 0800, Until Discontinued, METFORMIN SHOULD BE HELD FOR 24 HRS BEFORE AND 48 HRS AFTER PROCEDURES THAT REQUIRE CONTRAST MEDIUM !!!!! Use of Metformin in patients with Low GFR puts the patient at risk for adverse effects. - Please discontinue if GFR is less than 30. - Continue with caution, consider dosage reduction if GFR is between 30-45. - Do not initiate therapy in patients with GFR less than 45 Given 02/02/2024 8:33 AM EDT 1,000 mg Given 02/01/2024 4:38 PM EDT 1,000 mg Given 02/01/2024 8:00 AM EDT 1,000 mg metoprolol succinate XL (toPROL XL) tab 25 mg 25 mg, Oral, Daily(AM), First dose on [facility] 02/02/24 at 0900, Until Discontinued, Hold for HR less than 60 or SBP below 100 and notify service if dose is held This med should NOT be Crushed or Chewed. Given 02/02/2024 9:07 AM EDT 25 mg Metoprolol Tartrate (Lopressor) inj 2.5 mg 2.5 mg, IV Push, ONCE, On [facility] 01/29/24 at 0630, For 1 dose, Hold for HR less than 60 and for systolic blood pressure less than 100. Must be given prior to patient going back to OR Given 01/29/2024 6:30 AM EDT 2.5 mg Metoprolol Tartrate (Lopressor) inj 2.5 mg 2.5 mg, IV Push, ONCE, On [facility] 01/31/24 at 0630, For 1 dose Given 01/31/2024 5:46 AM EDT 2.5 mg Metoprolol Tartrate (Lopressor) tab 12.5 mg 12.5 mg, Oral, BID (.AM/PM), First dose on [facility] 01/31/24 at 0900, Until Discontinued, Hold for HR less than 60 or SBP below 100 and notify service if dose is held Given 02/01/2024 10:03 PM EDT 12.5 mg Given 02/01/2024 8:00 AM EDT 12.5 mg Given 01/31/2024 8:52 PM EDT 12.5 mg morphine sulfate inj 1 mg 1 mg, IV Push, Q2H PRN Other, Pain, Moderate; If NPO or unable to take oral medication, Starting on Silvana 01/29/24 at 1307, Until Fri02/02/24 at 1501, Post-op Given 01/30/2024 11:11 AM EDT 1 mg morphine sulfate inj 2 mg 2 mg, IV Push, Q2H PRN Other, Pain, Severe; If NPO or unable to take oral medication, Starting on Silvana 01/29/24 at 1307, Until Fri02/02/24 at 1501, Post-op Given 01/31/2024 4:11 AM EDT 2 mg naloxone (Narcan) 0.4 MG/ML inj 0.08 mg 0.08 mg, IV Push, PRN Other, If patient is oversedated or Respiratory Rate less than 8, Starting on Silvana 01/29/24 at 1307, Until Fri02/02/24 at 1501, Call provider if patient is oversedated or Respiratory Rate is less than 8, Post-op neostigmine methylsulfate 10 MG/10ML inj 3 mg 3 mg, Intravenous, ONCE PRN Other, Reversal of neuromuscular manuel, Starting on Silvana 01/29/24 at 1307, Until [facility]vana 01/29/24 at 1706, For 4 hours, Available in [employer]. If still chemically paralyzed after dose has been administered, contact provider for further guidance., Post-op Given 01/29/2024 4:47 PM EDT 3 mg NORepinephrine (Levophed) 4 mg in 250 ml [id number] STANDARD CONCENTRATION 16 mcg/ml Order Mode: Standard Titration, Starting Rate (mcg/min): 2, Clinical Target: MAP 65-70, Infusion Titration Adjustments: Increase or Decrease by up to 5 mcg/min no more frequently than every 2 minutes to achieve specified goal, Maximum Dose: 30 mcg/min for nurse titration. Dose titrations 31-90 mcg/min require provider order. If administering vasopressor peripherally, please refer to the Peripheral Vasopressor Guidelines., Patient Transfer: Patient should be transferred to a higher level of care if rate exceeds nursing unit specific guidelines., 0-30 mcg/min (0-112.5 mL/hr), TITRATE, Starting on Fri01/29/24 at 1345, Until Fri01/30/24 at 0059, Central IV Rate Verify 01/29/2024 4:00 PM EDT 2 mcg/min 7.5 mL/hr Rate Change 01/29/2024 3:52 PM EDT 2 mcg/min 7.5 mL/hr Rate Verify 01/29/2024 3:00 PM EDT 3 mcg/min 11.25 mL/hr omeprazole (PriLOSEC) cap 20 mg 20 mg, Oral, Daily(AM), First dose on Fri01/30/24 at 0900, Until Discontinued, This med should NOT be Crushed or Chewed Given 02/02/2024 9:06 AM EDT 20 mg Given 02/01/2024 8:00 AM EDT 20 mg Given 01/31/2024 8:09 AM EDT 20 mg ondansetron (Zofran) inj 4 mg 4 mg, IV Push, Q6H PRN Other, May use for nausea or vomiting if patient unable to take oral ondansetron, Starting on Fri01/29/24 at 1307, Until Fri02/02/24 at 1501, Post-op Given 01/31/2024 10:41 AM EDT 4 mg ondansetron ODT (Zofran) tab 4 mg 4 mg, On Tongue, Q6H PRN Nausea, Vomiting, Starting on Fri01/29/24 at 1307, Until Fri02/02/24 at 1501, Post-op Oral Hygiene: Mouth Swab with dentifrice Oral, Q4H LIMITED (00;04;12;16), First dose on Fri01/29/24 at 1600, Until Discontinued, To be used with 1.5% hydrogen peroxide solution or 0.05% cetylpyridium chloride oral rinse, Post-op Given 01/30/2024 12:00 AM EDT Given 01/29/2024 4:00 PM EDT oxyCODONE (Oxy IR) tab 5 mg 5 mg, Oral, Q4H PRN Pain, Severe, Starting on Fri01/29/24 at 1307, Until Fri02/02/24 at 1501, Post-op Given 02/01/2024 9:02 PM EDT 5 mg Given 01/31/2024 7:54 PM EDT 5 mg Given 01/31/2024 8:10 AM EDT 5 mg oxygen GAS Inhalation, OXYGEN, First dose on Silvana 01/29/24 at 1600, Until Discontinued, Device/Managed by: NIV or Ventilator Device, Goal SPO2 (%): 94 or greater, Notify Provider: For sudden DECREASE in resting SPO2 to less than 85% and when escalating delivery device., Initial FiO2 (%): 100, Titration Interval: Q2 minutes and as needed., If PO2 is greater than 300, decrease to 50% FiO2. If PO2 is 200-300, decrease to 60% FiO2. If PO2 is 150-200, decrease to 70% FiO2. If PO2 is 100-150, decrease to 80% FiO2. Always maintain saturations 95% or greater Changes can also be made by Resp Therapy per Vent Weaning Protocol Oxygen On 01/30/2024 12:00 AM EDT Oxygen On 01/29/2024 4:00 PM EDT 50 %(Oxygen) oxygen GAS Inhalation, OXYGEN, First dose on Silvana 01/29/24 at 1600, Until Discontinued, Device/Managed by: Low Flow Device, Goal SPO2 (%): 91-95, Starting Device: Nasal Cannula, Initial Flow Rate (LPM): 2. Apply post extubation., Lowest Support: Nasal Cannula: Flow 0-6 LPM. Titrate up/down by 1 LPM., Titration Interval: Q2 minutes and as needed., Notify Provider: For sudden DECREASE in resting SPO2 to less than 85% and when escalating delivery device., Wean patient off Oxygen when the oxygen saturation is greater than or equal to 93% Oxygen On 01/30/2024 4:00 PM EDT 2 L/min(Oxygen) Oxygen On 01/30/2024 8:00 AM EDT 2 L/min(Oxygen) Oxygen On 01/30/2024 12:00 AM EDT potassium chloride ER tab 20 mEq 20 mEq, Oral, PRN Other, Potassium repletion, Starting on Silvana 01/29/24 at 1307, Until Fri02/02/24 at 1501, Patients MUST meet ALL the following criteria. IF ANY criteria are not met, Do Not Administer, and call covering provider for orders 1. Serum creatinine must be less than 1.5 2. Current urine output must be greater than 30 mL/hr. 3. Patient is taking medications by mouth (PO). Potassium repletion based on level 4.0 - 4.2, Give 20mEq x 1 dose 3.5 - 3.9, Give 20mEq every 2 hours x 2 doses 3.0 - 3.4, Give 20mEq every 2 hours x 3 doses If potassium is less than 3.0, Give 20mEq x1 dose and immediately call the covering provider for orders. 4. BMP result must be no older than 24 hours., Post-op Given 01/31/2024 6:14 AM EDT 20 mEq Given 01/30/2024 5:46 AM EDT 20 mEq potassium chloride ER tab 20 mEq 20 mEq, Oral, BID (.AM/PM), First dose on 01/31/24 at 0900, Last dose on Fri01/31/24 at 1600, For 2 doses, This med should NOT be Crushed or Chewed Given 01/31/2024 8:09 AM EDT 20 mEq potassium chloride ER tab 20 mEq 20 mEq, Oral, BID (.AM/PM), First dose on 02/01/24 at 0900, Last dose on 02/01/24 at 1600, For 2 doses, This med should NOT be Crushed or Chewed Given 02/01/2024 4:37 PM EDT 20 mEq Given 02/01/2024 8:00 AM EDT 20 mEq potassium chloride ER tab 20 mEq 20 mEq, Oral, Daily(AM), First dose on Fri02/02/24 at 0900, Until Discontinued, This med should NOT be Crushed or Chewed Given 02/02/2024 8:33 AM EDT 20 mEq vitamins plus 1 mg folic acid tab 1 Tablet 1 Tablet, Oral, DAILY NOON, First dose on Fri01/30/24 at 1200, Until Discontinued, Post-op Given 02/01/2024 12:39 PM EDT 1 Tablet Given 01/31/2024 11:43 AM EDT 1 Tablet Given 01/30/2024 12:36 PM EDT 1 Tablet Propofol 10 mg/mL (1%) infusion Intravenous, at 3.13 mL/hr, PLEASE USE SMART PUMP LIBRARY FOR THIS DRUG: Increase by 5 mcg/kg/min for RASS score between -2 to -4 and maintain MAP over 65. Contact physician for further orders once a rate of 50 mcg/kg/min is required. Once the patient meets criteria described in the Cardiac Surgery Ventilator Weaning Protocol decrease propofol 5ml every minute until the drip is off. Change IV tubing every 12 hours. Sedation Vacation Daily. Shake Well Expires 12 hours after spiking on (date) at (hour) , CONTINUOUS, Starting on Silvana 01/29/24 at 1345, Until [facility] 01/29/24 at 1747, Post-op Rate Change 01/29/2024 4:38 PM EDT 25 mcg/kg/min 15.65 mL/hr Rate Change 01/29/2024 4:31 PM EDT 30 mcg/kg/min 18.77 mL/ hr Rate Verify 01/29/2024 4:00 PM EDT 40 mcg/kg/min 25.03 mL/ hr protamine sulfate inj 50 mg 50 mg, IV Push, ONCE, On [facility]ana 01/29/24 at 1345, For 1 dose, Administer no faster than 50 mg over 10 minutes. Given 01/29/2024 1:36 PM EDT 50 mg repaGLINide (Prandin) tab 4 mg 4 mg, Oral, [id number], First dose on Fri01/31/24 at 2100, Until Discontinued, Give 15-30 minutes before meals Given 02/01/2024 10:03 PM EDT 4 mg Given 01/31/2024 8:52 PM EDT 4 mg rosuvastatin (Crestor) tab 20 mg 20 mg, Oral, Daily(AM), First dose on Fri01/30/24 at 0900, Until Discontinued Given 02/02/2024 8:33 AM EDT 20 mg Given 02/01/2024 8:00 AM EDT 20 mg Given 01/31/2024 8:09 AM EDT 20 mg senna (Senokot) 1 Tablet 1 Tablet, Oral, BID (.AM/PM), First dose on Fri01/30/24 at 0900, Until Discontinued, Hold if patient develops diarrhea or has greater than 2 BMs in any one day., Post-op Given 02/02/2024 8:33 AM EDT 1 Tablet Given 02/01/2024 10:03 PM EDT 1 Tablet Given 02/01/2024 8:00 AM EDT 1 Tablet sodium bicarbonate 8.4 % inj 50 mEq 50 mEq, IV Push, ONCE, On [facility] 01/29/24 at 1345, For 1 dose Given 01/29/2024 1:36 PM EDT 50 mEq sodium chloride 0.9 % flush central line 10 mL 10 mL, IV Push, Q8H, First dose on [facility] 01/29/24 at 1400, Until Discontinued, Capped Central Line Ports, Post-op Given 02/01/2024 6:00 AM EDT 10 mL Given 01/31/2024 10:00 PM EDT 10 mL Given 01/31/2024 2:00 PM EDT 10 mL sodium chloride 0.9 % flush peripheral brandi 3 mL 3 mL, IV Push, QSHIFT, First dose on [facility] 01/29/24 at 1600, Until Discontinued, Do not flush if lock, PICC, or central line not in place; IV infusing or unable to flush., Post-op Given 02/02/2024 8 :37 AM EDT 3 mL Given 02/02/2024 12:00 AM EDT 3 mL Given 02/01/2024 4:00 PM EDT 3 mL tamsulosin (Flomax) cap 0.4 mg 0.4 mg, Oral, Daily(AM), First dose on [facility] 01/31/24 at 2044, Until Discontinued, Administer 30 min after meal. This med should NOT be Crushed or Chewed or opened! ORAL administration only!! Given 02/02/2024 9:06 AM EDT 0.4 mg Given 02/01/2024 8:00 AM EDT 0.4 mg Given 01/31/2024 8:52 PM EDT 0.4 mg traMADol (Ultram) tab 25 mg 25 mg, Oral, Q6H, First dose on Fri01/30/24 at 0600, Last dose on Fri01/31/24 at 0000, For 4 doses, Post-op Given 01/30/2024 11:33 PM EDT 25 mg Given 01/30/2024 6:22 PM EDT 25 mg Given 01/30/2024 12:36 PM EDT 25 mg traMADol (Ultram) tab 25 mg 25 mg, Oral, Q6H PRN Pain, Moderate, Starting on Fri01/30/24 at 0600, Until Fri02/02/24 at 1501, Post-op Given 01/30/2024 8:04 AM EDT 25 mg vancomycin (Vancocin) 1,500 mg in NSS 250 mL ivpb 1,500 mg, IV Piggyback, ONCALL, 1 dose, Starting on Fri01/29/24 at 0700, Until Fri01/29/24 at 0819 New Bag 01/29/2024 6:49 AM EDT 1,500 mg 193.33 mL/hr vancomycin (Vancocin) 1,500 mg in NSS 250 mL ivpb 1,500 mg, IV Piggyback, Q12H, 3 doses, First dose on Fri01/29/24 at 2100, Last dose on Fri01/30/24 at 2100, Give 12 hours after preop dose, Post-op Rate Verify 01/30/2024 9:00 PM EDT 999.8 mg/hr 193.3 mL/hr New Bag 01/30/2024 8:25 PM EDT 1,500 mg 193.33 mL/hr Rate Verify 01/30/2024 10:00 AM EDT 999.8 mg/hr 193.3 mL/h r documented in this encounter Active and Recently Administered Medications Times are shown in EDT. Scheduled Medication Order 01/31/2024 02/01/2024 02/02/2024 Acetaminophen (Tylenol) tab 975 mg 975 mg, Oral, Q8H, First dose on Fri01/29/24 at 1400, Last dose on Fri02/03/24 at 0600, For 5 days, Avoid in patients with severe hepatic impairment or severe active liver disease. 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 "square" 2D barcode to record Lot/ Expiration, ONCE, 1 dose, On 01/31/24 at 1145 1146 (New Bag - Provider: Holly Chopra, RN) Amiodarone (Cordarone) 150 mg in dextrose 100 mL BOLUS (COMPLETED) 150 mg, Central IV, ONCE, 1 dose, On 01/31/24 at 0615, Administer over 10 Minutes, USE 0.22 micron inline filter 0615 (New Bag - Provider: Zoraida Christensen, RN) Amiodarone (Cordarone) 150 mg in dextrose 100 mL BOLUS (COMPLETED) 150 mg, Central IV, ONCE, 1 dose, On 01/31/24 at 0615, Administer over 10 Minutes, USE 0.22 micron inline filter 0535 (New Bag - Provider: Zoraida Christensen RN)0547 (Not Given - Provider: Zoraida Christensen RN - Reason: Other-Notify Provider) Amiodarone (Cordarone) 150 mg in dextrose 100 mL BOLUS (COMPLETED) 150 mg, Central IV, ONCE, 1 dose, On 01/31/24 at 0700, Administer over 10 Minutes, USE 0.22 micron inline filter 0630 (New Bag - Provider: Zoraida Christensen RN) Amiodarone (Cordarone) 150 mg in dextrose 100 mL BOLUS (COMPLETED) 150 mg, Central IV, ONCE, 1 dose, On 01/31/24 at 0815, Administer over 10 Minutes, USE 0.22 micron inline filter 0742 (New Bag - Provider: Holly Chopra, JOSE) Amiodarone (Cordarone) 150 mg in dextrose 100 mL BOLUS (COMPLETED) 150 mg, Central IV, ONCE, 1 dose, On 01/31/24 at 1030, Administer over 10 Minutes, USE 0.22 micron inline filter 1019 (New Bag - Provider: Holly Chopra, JOSE) Amiodarone (Cordarone) 150 mg in dextrose 100 mL BOLUS (COMPLETED) 150 mg, Peripheral IV, ONCE, 1 dose, On 02/01/24 at 2345, Administer over 10 Minutes, USE 0.22 micron inline filter 2323 (New Bag - Provider: Ning Humphries, JOSE)2345 (Stopped - Provider: Ning HumphriesJOSE) amiodarone (Cordarone) tab 400 mg 400 mg, Oral, WITH MEALS, First dose on 01/31/24 at 0815, Until Discontinued 0810 (Given - Provider: Holly Chopra RN)1143 (Given - Provider: Holly Chopra RN)1700 (Given - Provider: Holly Chopra RN) 0800 (Given - Provider: Holly Chopra, JOSE)1239 (Given - Provider: Holly Chopra RN)1637 (Given - Provider: Holly Chopra RN) 0832 (Given - Provider: Kristi Brice RN) aspirin chew tab 81 mg 81 mg, Oral, Daily(AM), First dose on Fri01/30/24 at 0900, Until Discontinued, Start on POD#1, Post-op 08 (Given - Provider: Holly Chopra RN) 08 (Given - Provider: Holly Chopra RN) 0833 (Given - Provider: Kristi Brice RN) ceFAZolin in dextrose (Ancef) ivpb 2 g (COMPLETED) 2 g, IV Piggyback, Q8HNOW, 5 doses, First dose on Silvana 01/29/24 at 2000, Last dose on 01/31/24 at 0400, Post-op 0414 (New Bag - Provider: Zoraida Christensen RN)0444 (Stopped - Provider: Holly Chopra RN) CYANOCOBALAMIN (vitamin B-12) tab 1,000 mcg 1,000 mcg, Oral, Daily(AM), First dose on Fri01/30/24 at 0930, Until Discontinued 808 (Given - Provider: Holly Chopra RN) 08 (Given - Provider: Holly Chopra RN) 0833 (Given - Provider: Kristi Brice, JOSE) Docusate Sodium (Colace) cap 100 mg(Linked Group 1) 100 mg, Oral, BID (.AM/PM), First dose on Fri01/30/24 at 0900, Until Discontinued, Hold and administer syrup formulation if not able to take this tab PO., Post-op 808 (Given - Provider: Holly Chopra RN)2051 (Given - Provider: Ning Humphries RN) 0800 (Given - Provider: Holly Chopra RN)2203 (Given - Provider: Ning Humphries RN) 0833 (Given - Provider: Kristi Brice RN) fluticasone (Flonase) nasal inhaler 2 [place] 2 [place], Each Nostril, Daily(AM), First dose on Fri01/30/24 at 0900, Until Discontinued, 50 mcg / Actuation 0811 (Given - Provider: Holly Chopra RN) 0801 (Given - Provider: Holly Chopra RN) 0835 (Not Given - Provider: Kristi Brice RN - Reason: Refused-Notify Provider) Furosemide (Lasix) inj 40 mg (COMPLETED) 40 mg, IV Push, BID (0900, 1600), First dose on 01/31/24 at 0645, Last dose on 01/31/24 at 1600, For 2 doses 0613 (Given - Provider: Zoraida Christensen RN)1700 (Given - Provider: Holly Chopra RN) Furosemide (Lasix) inj 40 mg (COMPLETED) 40 mg, IV Push, BID (0900, 1600), First dose on 02/01/24 at 0900, Last dose on 02/01/24 at 1600, For 2 doses 0800 (Given - Provider: Holly Chopra RN)1638 (Given - Provider: Holly Chopra RN) Furosemide (Lasix) tab 40 mg 40 mg, Oral, Daily(AM), First dose on Fri02/02/24 at 0900, Until Discontinued 0833 (Given - Provider: Kristi Brice RN) insulin aspart (NovoLOG) inj Subcutaneous, WITH MEALS, First dose on 01/31/24 at 0800, Until Discontinued, Dose equals 1 unit of insulin per 10 grams of carbohydrate consumed. Hold dose if patient does not eat 0811 (Given - Provider: Holly Chopra RN)1209 (Given - Provider: Holly Chopra RN)1708 (Given - Provider: Holly Chopra RN) 0801 (Given - Provider: Holly Chopra RN)1239 (Given - Provider: Holly Chopra RN)1638 (Given - Provider: Holly Chopra RN) 0907 (Given - Provider: Kristi Brice, RN) insulin aspart (NovoLOG) inj (CANCELED) Subcutaneous, WITH MEALS, First dose on 01/31/24 at 0800, Until Discontinued, MEDIUM DOSE (Usual starting dose): Sliding Scale Correctional insulin may be given if the patient is NPO. Dose based on standard build from Insulin Calculator. Do not modify insulin doses in administration instructions!, Glucose less than 70 instructions: Obtain STAT lab blood glucose and call covering provider., Glucose 80-150 (units): 0, Glucose 151-200 (units): 2, Glucose 201-250 (units): 4, Glucose 251-300 (units): 6, Glucose greater than 300 (units): 8, Glucose greater than 300 instructions: Give suggested insulin dose and call covering provider. 0811 (Given - Provider: Holly Chopra RN)1210 (Given - Provider: Holly Chopra RN)1707 (Given - Provider: Holly Chopra, JOSE) insulin aspart (NovoLOG) inj Subcutaneous, W/MEALS AND HS, First dose (after last modification) on 01/31/24 at 2230, Until Discontinued, MEDIUM DOSE (Usual starting dose): Sliding Scale Correctional insulin may be given if the patient is NPO. Dose based on standard build from Insulin Calculator. Do not modify insulin doses in administration instructions!, Glucose less than 70 instructions: Obtain STAT lab blood glucose and call covering provider., Glucose 80-150 (units): 0, Glucose 151-200 (units): 2, Glucose 201-250 (units): 4, Glucose 251-300 (units): 6, Glucose greater than 300 (units): 8, Glucose greater than 300 instructions: Give suggested insulin dose and call covering provider. 2152 (Given - Provider: Ning Humphries RN) 0801 (Given - Provider: Holly Chopra RN)1239 (Given - Provider: Holly Chopra RN)1638 (Given - Provider: Holly Chopra RN)2205 (Given - Provider: Nign Humphries RN) 0725 (No Insulin - Provider: Kristi Brice RN - Reason: Parameter(s) Not Met) Iron Sucrose (Venofer) 300 mg in NSS 250 mL ivpb (COMPLETED) 300 mg, IV Piggyback, Daily(AM), 2 doses, First dose on Fri01/30/24 at 0930, Last dose on Fri01/31/24 at 0900, Administer over 90 Minutes 0822 (New Bag - Provider: Holly Chopra RN)0953 (Stopped - Provider: Holly Chopra RN) MetFORMIN (Glucophage) tab 1,000 mg 1,000 mg, Oral, BID (AM/PM MEALS), First dose on 01/31/24 at 0800, Until Discontinued, METFORMIN SHOULD BE HELD FOR 24 HRS BEFORE AND 48 HRS AFTER PROCEDURES THAT REQUIRE CONTRAST MEDIUM !!!!! Use of Metformin in patients with Low GFR puts the patient at risk for adverse effects. - Please discontinue if GFR is less than 30. - Continue with caution, consider dosage reduction if GFR is between 30-45. - Do not initiate therapy in patients with GFR less than 45 0810 (Given - Provider: Holly Chopra RN)1700 (Given - Provider: Holly Chopra RN) 0800 (Given - Provider: Holly Chopra, JOSE)1638 (Given - Provider: Holly Chopra, JOSE) 0833 (Given - Provider: Kristi Brice RN) metoprolol succinate XL (toPROL XL) tab 25 mg 25 mg, Oral, Daily(AM), First dose on Fri02/02/24 at 0900, Until Discontinued, Hold for HR less than 60 or SBP below 100 and notify service if dose is held This med should NOT be Crushed or Chewed. 0907 (Given - Provider: Kristi Brice RN) Metoprolol Tartrate (Lopressor) inj 2.5 mg (COMPLETED) 2.5 mg, IV Push, ONCE, On Fri01/31/24 at 0630, For 1 dose 0546 (Given - Provider: Zoraida Christensen RN) Metoprolol Tartrate (Lopressor) tab 12.5 mg (CANCELED) 12.5 mg, Oral, BID (.AM/PM), First dose on 01/31/24 at 0900, Until Discontinued, Hold for HR less than 60 or SBP below 100 and notify service if dose is held 0809 (Given - Provider: Holly Chopra RN)2051 (Given - Provider: Ning Humphries RN) 08 (Given - Provider: Holly Chopra RN)2202 (Given - Provider: Ning Humphries RN) omeprazole (PriLOSEC) cap 20 mg 20 mg, Oral, Daily(AM), First dose on Fri01/30/24 at 0900, Until Discontinued, This med should NOT be Crushed or Chewed 08 (Given - Provider: Holly Chopra RN) 08 (Given - Provider: Holly Chopra RN) 905 (Given - Provider: Kristi Brice RN) oxygen GAS Inhalation, OXYGEN, First dose on Silvana 01/29/24 at 1600, Until Discontinued, Device/Managed by: Low Flow Device, Goal SPO2 (%): 91-95, Starting Device: Nasal Cannula, Initial Flow Rate (LPM): 2. Apply post extubation., Lowest Support: Nasal Cannula: Flow 0-6 LPM. Titrate up/down by 1 LPM., Titration Interval: Q2 minutes and as needed., Notify Provider: For sudden DECREASE in resting SPO2 to less than 85% and when escalating delivery device., Wean patient off Oxygen when the oxygen saturation is greater than or equal to 93% 0000 (Oxygen Off - Provider: Zoraida Christensen RN)0800 (Oxygen Off - Provider: Holly Chopra RN)1599 (Oxygen Off - Provider: Holly Chopra RN) 0000 (Oxygen Off - Provider: Ning Humphries RN)0800 (Oxygen Off - Provider: Holly Chopra RN)1600 (Oxygen Off - Provider: Holly Chopra RN) 0000 (Oxygen Off - Provider: Ning Humphries RN)0800 (Oxygen Off - Provider: Kristi Brice RN) potassium chloride ER tab 20 mEq (CANCELED) 20 mEq, Oral, BID (.AM/PM), First dose on Fri01/31/24 at 0900, Last dose on Fri01/31/24 at 1600, For 2 doses, This med should NOT be Crushed or Chewed 808 (Given - Provider: Holly Chopra RN) potassium chloride ER tab 20 mEq (COMPLETED) 20 mEq, Oral, BID (.AM/PM), First dose on 02/01/24 at 0900, Last dose on 02/01/24 at 1600, For 2 doses, This med should NOT be Crushed or Chewed 0800 (Given - Provider: Holly Chopra RN)1637 (Given - Provider: Holly Chopra RN) potassium chloride ER tab 20 mEq 20 mEq, Oral, Daily(AM), First dose on Fri02/02/24 at 0900, Until Discontinued, This med should NOT be Crushed or Chewed 08 (Given - Provider: Kristi Brice RN) vitamins plus 1 mg folic acid tab 1 Tablet 1 Tablet, Oral, DAILY NOON, First dose on Fri01/30/24 at 1200, Until Discontinued, Post-op 1143 (Given - Provider: Holly Chopra RN) 1239 (Given - Provider: Holly Chopra RN) repaGLINide (Prandin) tab 4 mg 4 mg, Oral, [id number], First dose on Fri01/31/24 at 2100, Until Discontinued, Give 15-30 minutes before meals 2051 (Given - Provider: Ning Humphries RN) 2202 (Given - Provider: Ning Humphries RN) rosuvastatin (Crestor) tab 20 mg 20 mg, Oral, Daily(AM), First dose on Fri01/30/24 at 0900, Until Discontinued 0809 (Given - Provider: Holly Chopra RN) 08 (Given - Provider: Holly Chopra RN) 0833 (Given - Provider: Kristi Brice RN) senna (Senokot) 1 Tablet(Linked Group 2) 1 Tablet, Oral, BID (.AM/PM), First dose on Fri01/30/24 at 0900, Until Discontinued, Hold if patient develops diarrhea or has greater than 2 BMs in any one day., Post-op 0810 (Given - Provider: Holly Chopra RN)2051 (Given - Provider: Ning Humphries RN) 08 (Given - Provider: Holly Chopra RN)2202 (Given - Provider: Ning Humphries RN) 0833 (Given - Provider: Kristi Brice RN) sodium chloride 0.9 % flush central line 10 mL 10 mL, IV Push, Q8H, First dose on Silvana 01/29/24 at 1400, Until Discontinued, Capped Central Line Ports, Post-op 0600 (Given - Provider: Zoraida Christensen RN)1400 (Given - Provider: Holly Chopra RN)2200 (Given - Provider: Ning Humphries RN) 0600 (Given - Provider: Ning Humphries RN)1400 (Not Given - Provider: Holly Chopra RN - Reason: Parameter(s) Not Met)2200 (Not Given - Provider: Ning Humphries RN - Reason: Parameter(s) Not Met) 0600 (Not Given - Provider: Ning Humphries RN - Reason: Parameter(s) Not Met) sodium chloride 0.9 % flush peripheral brandi 3 mL 3 mL, IV Push, QSHIFT, First dose on Silvana 01/29/24 at 1600, Until Discontinued, Do not flush if lock, PICC, or central line not in place; IV infusing or unable to flush., Post-op 0000 (Given - Provider: Zoraida Christensen RN)0800 (Given - Provider: Holly Chopra RN)1600 (Given - Provider: Holly Chopra RN) 0000 (Given - Provider: Ning Humphries RN)0800 (Given - Provider: Holly Chopra RN)1600 (Given - Provider: Holly Chopra RN) 0000 (Given - Provider: Ning Humphries RN)0837 (Given - Provider: Kristi Brice RN) tamsulosin (Flomax) cap 0.4 mg 0.4 mg, Oral, Daily(AM), First dose on 01/31/24 at 2044, Until Discontinued, Administer 30 min after meal. This med should NOT be Crushed or Chewed or opened! ORAL administration only!! 2051 (Given - Provider: Ning Humphries RN) 0800 (Given - Provider: Holly Chopra RN) 0906 (Given - Provider: Kristi Brice, JOSE) Continuous Medication Order 01/31/2024 02/01/2024 02/02/2024 amiodarone (Cordarone) 900 mg in NSS 500 mL INFUSION () Central IV, 1 mg/min (33.3333 mL/hr, rounded to 33.33 mL/hr), Amiodarone to be run using Smart pump mode: Pump is programmed to *ALERT* at 200 ml to notify of RATE change from 1mg/min to go to 0.5 mg/min. Use 0.22 micron filter., CONTINUOUS, Starting on 01/31/24 at 0815, Until 01/31/24 at 1414 0847 (New Bag - Provider: Holly Chopra RN)1100 (Rate Verify - Provider: Holly Chopra RN) amiodarone (Cordarone) 900 mg in NSS 500 mL INFUSION (CANCELED) Central IV, 0.5 mg/min (16.6667 mL/hr, rounded to 16.67 mL/hr), Amiodarone to be run using Smart pump mode: Pump is programmed to *ALERT* at 200 ml to notify of RATE change from 1mg/min to go to 0.5 mg/min. Use 0.22 micron filter., CONTINUOUS CALL PHARMACY TO DISPENSE, Starting on 01/31/24 at 1345, Until 01/31/24 at 2007 1345 (Continue on Pump - Provider: Holly Chopra RN)1348 (Rate Change - Provider: Holly Chopra RN)1354 (Rate Change - Provider: Holly Chopra RN)1355 (Associate Infusion Pump - Provider: Holly Chopra RN)1400 (Rate Verify - Provider: Holly Chopra RN)1920 (Paused - Provider: Ning Humphries RN)1925 (Restarted - Provider: Ning Humphries, RN)2000 (Rate Verify - Provider: Ning Humphries, RN)2008 (Stopped - Provider: Ning Humphries, RN) amiodarone (Cordarone) 900 mg in NSS 500 mL INFUSION (CANCELED) Central IV, 0.5 mg/min (16.6667 mL/hr, rounded to 16.67 mL/hr), DO NOT RENEW Amiodarone to be run using Smart pump mode: Pump is programmed to *ALERT* at 200 ml to notify of RATE change from 1mg/min to go to 0.5 mg/min. Use 0.22 micron filter., CONTINUOUS CALL PHARMACY TO DISPENSE, Starting on 01/31/24 at 2045, Until 02/01/24 at 1831 2055 (Continue on Pump - Provider: Ning Humphries RN)2057 (Rate Verify - Provider: Ning Humphries RN)2100 (Rate Verify - Provider: Ning Humphries RN)2200 (Rate Verify - Provider: Ning Humphries RN)2300 (Rate Verify - Provider: Ning Humphries, RN) 0000 (Rate Verify - Provider: Ning Humphries RN)0100 (Rate Verify - Provider: Ning Humphries RN)0200 (Rate Verify - Provider: Ning Humphries RN)0214 (Paused - Provider: Ning Humphries RN)0216 (Restarted - Provider: Ning Humphries RN)0300 (Rate Verify - Provider: Ning Humphries RN)0359 (Paused - Provider: Ning Humphries RN)0403 (Restarted - Provider: Ning Humphries RN)0500 (Rate Verify - Provider: Ning Humphries RN)0600 (Rate Verify - Provider: Ning Humphries RN)0700 (Rate Verify - Provider: Ning Humphries RN)0810 (Stopped - Provider: Holly Chopra RN) insulin REGULAR human 100 units in NSS 100 mL INFUSION Final Conc = 1 unit / mL (CANCELED) Intravenous, at 1 mL/hr, Target Range for Blood Glucose = 100 to 130 mg/dl, CONTINUOUS, Starting on Silvana 01/29/24 at 1345, Until 01/31/24 at 0053, Post-op 0002 (New Bag - Provider: Zoraida Christensen RN)0053 (Stopped - Provider: Zoraida Christensen, JOSE) PRN Medication Order 01/31/2024 02/01/2024 02/02/2024 Acetaminophen (Tylenol) tab 975 mg 975 mg, Oral, Q6H PRN Pain, Mild, Starting on Tu02/03/24 at 0000, Until 02/02/24 at 1501, Begin after around the clock acetaminophen order discontinued (S+5). Maximum 4 g acetaminophen/day. Avoid in patients with severe hepatic impairment or severe active liver disease., Post-op atropine sulfate inj 1 mg 1 mg, IV Push, PRN Other, X1 PRN hemodynamically significant bradydysrythmias and call CT Surgeon lenin DIAZ, Starting on Silvana 01/29/24 at 1307, Until Fri02/02/24 at 1501, For 1 dose, Post-op Bisacodyl (Dulcolax) supp 10 mg 10 mg, Rectal, DAILY PRN Constipation, Starting on 01/31/24 at 0800, Until Fri02/02/24 at 1501, Post-op calcium CHLORide 10 % inj 1 g 1 g, IV Push, PRN Other, Calcium Replacement, Starting on Silvana 01/29/24 at 1307, Until Fri02/02/24 at 1501, For 1 dose, Ionized calcium is less than 1 and MAP less than 80, Post-op dextrose 50% inj 25 mL 25 mL, IV Push, PRN Hypoglycemia, Other, For blood glucose 54 - 69 mg/dL or 70 - 100 mg/dL with symptoms AND patient is unresponsive, NPO, OR unable to swallow, Starting on 01/31/24 at 0053, Until Fri02/02/24 at 1501, Administer IV. Recheck blood glucose after 15 minutes. Notify provider. dextrose 50% inj 50 mL 50 mL, IV Push, PRN Hypoglycemia, Other, For blood glucose below 54 mg/dL AND patient unresponsive, NPO, OR unable to swallow, Starting on 01/31/24 at 0053, Until Fri02/02/24 at 1501, Administer IV. Recheck blood glucose in 15 minutes. Notify provider. glucagon (Glucagen) inj 1 mg 1 mg, Intramuscular, PRN Hypoglycemia, Other, If patient is unresponsive, or NPO and has no IV access, Starting on 01/31/24 at 0053, Until Fri02/02/24 at 1501, NPO and no IV access with either 1) blood glucose less than 100 mg/dL and symptomatic OR 2) blood glucose less than 70 mg/dL and asymptomatic Glucose (Glutose 15) 40 % gel 15 g of glucose 15 g of glucose, Oral, PRN Hypoglycemia (low sugar), Other, For blood glucose 54 - 69 mg/dL or 70 - 100 mg/dL with symptoms AND patient alert WITH difficulty chewing/swallowing, Starting on 01/31/24 at 0053, Until 02/02/24 at 1501, Administer gel. Recheck blood glucose after 15 minutes. Notify provider. 37.5 gram tube = 15 grams glucose = 1 each Glucose (Glutose 15) 40 % gel 30 g of glucose 30 g of glucose, Oral, PRN Hypoglycemia (low sugar), Other, For blood glucose below 54 mg/dL AND patient alert WITH difficulty chewing/swallowing, Starting on 01/31/24 at 0053, Until Fri02/02/24 at 1501, Administer gel. Recheck blood glucose after 15 minutes. Notify provider. 37.5 gram tube = 15 grams glucose = 1 each glucose chew tab 16 g 16 g, Oral, PRN Hypoglycemia, Other, For blood glucose 54 - 69 mg/dL or 70 - 100 mg/dL with symptoms and patient alert without difficulty chewing/swallowing., Starting on 01/31/24 at 0053, Until Fri02/02/24 at 1501 magnesium sulfate 1 g in d5w 100mL LOCKED DOSE 1 g, IV Piggyback, PRN Other, Magnesium replacement, Starting on Silvana 01/29/24 at 1306, Until Fri02/02/24 at 1501, For 4 doses, 1. Serum creatinine must be less than 1.5 2. Current urine output must be greater than 30 mL/hr. Magnesium level 1.5 - 2.2: Give 1 gm over 1 hour x 1 dose Magnesium level less than 1.5: Give 1 gm over 1 hour x 2 doses Repeat serum magnesium level 1 hour after completion of 2nd dose, Post-op 0621 (New Bag - Provider: Zoraida Christensen RN)0700 (Rate Verify - Provider: Holly Chpora, JOSE)0721 (Stopped - Provider: Holly Chopra, JOSE) Menthol (Curlew) cough drop 1 Lozenge 1 Lozenge, Oral, Q2H PRN Sore throat, Starting on Fri01/30/24 at 1217, Until Fri02/02/24 at 1501 morphine sulfate inj 1 mg 1 mg, IV Push, Q2H PRN Other, Pain, Moderate; If NPO or unable to take oral medication, Starting on Silvana 01/29/24 at 1307, Until 02/02/24 at 1501, Post-op morphine sulfate inj 2 mg 2 mg, IV Push, Q2H PRN Other, Pain, Severe; If NPO or unable to take oral medication, Starting on Silvana 01/29/24 at 1307, Until 02/02/24 at 1501, Post-op 0411 (Given - Provider: Zoraida Christensen RN) naloxone (Narcan) 0.4 MG/ML inj 0.08 mg 0.08 mg, IV Push, PRN Other, If patient is oversedated or Respiratory Rate less than 8, Starting on Silvana 01/29/24 at 1307, Until 02/02/24 at 1501, Call provider if patient is oversedated or Respiratory Rate is less than 8, Post-op ondansetron (Zofran) inj 4 mg(Linked Group 3) 4 mg, IV Push, Q6H PRN Other, May use for nausea or vomiting if patient unable to take oral ondansetron, Starting on Silvana 01/29/24 at 1307, Until 02/02/24 at 1501, Post-op 1041 (Given - Provider: Holly Chopra RN) ondansetron ODT (Zofran) tab 4 mg(Linked Group 3) 4 mg, On Tongue, Q6H PRN Nausea, Vomiting, Starting on Silvana 01/29/24 at 1307, Until 02/02/24 at 1501, Post-op 1041 (See Alternative - Provider: Holly Chopra RN) oxyCODONE (Oxy IR) tab 5 mg 5 mg, Oral, Q4H PRN Pain, Severe, Starting on Silvana 01/29/24 at 1307, Until 02/02/24 at 1501, Post-op 0810 (Given - Provider: Holly Chopra RN)1953 (Given - Provider: Ning Humphries RN) 2101 (Given - Provider: Ning Humphries, JOSE) potassium chloride ER tab 20 mEq 20 mEq, Oral, PRN Other, Potassium repletion, Starting on Silvana 01/29/24 at 1307, Until 02/02/24 at 1501, Patients MUST meet ALL the following criteria. IF ANY criteria are not met, Do Not Administer, and call covering provider for orders 1. Serum creatinine must be less than 1.5 2. Current urine output must be greater than 30 mL/hr. 3. Patient is taking medications by mouth (PO). Potassium repletion based on level 4.0 - 4.2, Give 20mEq x 1 dose 3.5 - 3.9, Give 20mEq every 2 hours x 2 doses 3.0 - 3.4, Give 20mEq every 2 hours x 3 doses If potassium is less than 3.0, Give 20mEq x1 dose and immediately call the covering provider for orders. 4. BMP result must be no older than 24 hours., Post-op 613 (Given - Provider: Zoraida Christensen RN) traMADol (Ultram) tab 25 mg 25 mg, Oral, Q6H PRN Pain, Moderate, Starting on Fri01/30/24 at 0600, Until Fri02/02/24 at 1501, Post-op Linked Groups Order Group 1: Docusate Sodium (Colace) cap 100 mgJump to med 100 mg, Oral, BID (.AM/PM), First dose on Fri01/30/24 at 0900, Until Discontinued, Hold and administer syrup formulation if not able to take this tab PO., Post-op Or Docusate Sodium (Colace) oral liquid 100 mg (CANCELED) 100 mg, NG Tube, BID (.AM/PM), First dose on Fri01/30/24 at 0900, Until Discontinued, Post-op Group 2: senna (Senokot) 1 TabletJump to med 1 Tablet, Oral, BID (.AM/PM), First dose on Fri01/30/24 at 0900, Until Discontinued, Hold if patient develops diarrhea or has greater than 2 BMs in any one day., Post-op Or senna (Senokot) 1 Tablet (CANCELED) 1 Tablet, NG Tube, BID (.AM/PM), First dose on Fri01/30/24 at 0900, Until Discontinued, Hold if patient develops diarrhea or has greater than 2 bm's in any one day., Post-op Group 3: ondansetron ODT (Zofran) tab 4 mgJump to med 4 mg, On Tongue, Q6H PRN Nausea, Vomiting, Starting on Silvana 01/29/24 at 1307, Until 02/02/24 at 1501, Post-op Or ondansetron (Zofran) inj 4 mgJump to med 4 mg, IV Push, Q6H PRN Other, May use for nausea or vomiting if patient unable to take oral ondansetron, Starting on Silvana 01/29/24 at 1307, Until 02/02/24 at 1501, Post-op documented in this encounter Advance Directives * [...] Directives occurred with: Not Discussed Care Teams Retail Service Specialist Relationship Specialty Start Date End Date Winston Luna MD [address] [place] [address] PCP - General 07/08/1999 documented as of this encounter
--- OUTSIDE RECORDS SUMMARY | 2024-02-09 13:08 | External Medical Summary ---
Author Name Unknown Address Unknown Organization : Laboratory Report Ordering Provider Test Date Status TONI MONTAGUE 01/31/2024 04:32:00 Final Observation Date Value Abnormality Reference (Units ) Status Performing Location
--- OUTSIDE RECORDS SUMMARY | 2024-02-09 13:08 | External Medical Summary ---
Author Name Unknown Address Unknown Organization K01:LABORATORY [facility] [place] - [address] [place] [address] Laboratory Report Ordering Provider Test Date Status TONI MONTAGUE 01/31/2024 04:32:00 Final Observation Date Value Abnormality Reference (Units ) Status WBC, Total 01/31/2024 04:32:00 58.78 Above upper panic limits 4.00-10.80 (K/uL) Final RBC 01/31/2024 04:32:00 2.82 4.50-5.25 (M/uL) Final Hemoglobin 01/31/2024 04:32:00 8.8 Below low normal 14.0-16.8 (g/dL) Final HCT 01/31/2024 04:32:00 28.4 Below low normal 40.0-48.4 (%) Final MCV 01/31/2024 04:32:00 100.7 82.0-99.5 (fL) Final MCH 01/31/2024 04:32:00 31.2 27.0-34.0 (pg) Final MCHC 01/31/2024 04:32:00 31.0 32.0-36.0 (g/dL) Final RDW 01/31/2024 04:32:00 14.8 11.5-15.5 (%) Final Platelets 01/31/2024 04:32:00 84 Below low normal 140-400 (K/uL) Final MPV 01/31/2024 04:32:00 10.9 6.6-11.1 (fL) Final Nucleated erythrocytes/100 leukocytes [Ratio] in Blood by Automated count 01/31/2024 04:32:00 0 <=0 (/100 WBCs) Final Performing Location LABORATORY [facility] [place] - [address] [place] [address]
--- OUTSIDE RECORDS SUMMARY | 2024-02-09 13:08 | External Medical Summary ---
Author Name Unknown Address Unknown Organization : Laboratory Report Ordering Provider Test Date Status IRASEMA NORMAN 01/31/2024 21:37:18 Final Observation Date Value Abnormality Reference (Units ) Status Glucose Point of Care 01/31/2024 21:37:18 155 Above high normal 70-120 (mg/dL) Final Performing Location
--- OUTSIDE RECORDS SUMMARY | 2024-02-09 13:08 | External Medical Summary ---
Author Name Unknown Address Unknown Organization : Laboratory Report Ordering Provider Test Date Status IRASEMA NORMAN 02/02/2024 06:25:53 Final Observation Date Value Abnormality Reference (Units ) Status Glucose Point of Care 02/02/2024 06:25:53 146 Above high normal 70-120 (mg/dL) Final Performing Location
--- OUTSIDE RECORDS SUMMARY | 2024-02-09 13:08 | External Medical Summary | Summary of Care ---
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) Nonrheumatic aortic valve stenosis [I35.0] Coronary artery disease of [place] artery of [place] heart with stable angina pectoris (HCC) [I25.118] Procedures CABG, ARTERIAL, SINGLE CABG, ARTERY-VEIN, TWO ENDO,VIDEO ASSIST HARVEST OLEG REPLACEMENT AORTIC VALVE, BYPASS WITH PROSTHETIC VALVE CORONARY ARTERY BYPASS GRAFT USING ARTERY 1 GRAFT CORONARY ARTERY BYPASS GRAFT ARTERIAL AND VENOUS 2 GRAFTS ENDOSCOPY VIDEO ASSISTED HARVEST VEIN WITH REPLACEMENT AORTIC VALVE Aravind Rust MD [address] [place] [address] Or [facility] [address] [place] [address] Referral ID Status Reason Start Date Expiration Date Visits Re quested Visits Authorized [id number] Encounter Details Date Type Department Care Team (Latest Contact Info) Description 01/29/2024 8:57 AM EDT - 01/29/2024 12:18 PM EDT Hospital Encounter Cardiac Studies [facility] [address] [place] [address] Discharge Disposition: Home - Self Care Allergies Active Allergy Reactions Criticality Noted Date Comments Amoxicillin Nausea/vomiting Medium 06/30/2018 documented as of this encounter (statuses as of 01/30/2024) Medications Medication Sig Dispensed Refills Start Date End Date Status MULTI-VITAMIN DAILY PO TABS Take by mouth . Suspended Blood Glucose Monitoring Suppl ([employer] ULTRA SYSTEM) w/Device KITIndications:Typ e 2 diabetes mellitus with hemoglobin A1c goal of less than 8.0% (HCC) Use as directed 4 times a day as needed (blood glucose). Use up to four times a day as directed 1 Kit 12/22/2017 Suspended Additional Information Turmeric Curcumin Oral Capsule Suspended Fish Oil 1000 MG Oral Capsule Take 1 Capsule by mouth in the morning. Suspended OneTouch Verio w/Device KitIndications:Typ e 2 diabetes mellitus with hemoglobin A1c goal of less than 8.0% (HCC) Use once daily E11.9 1 Kit 05/09/2022 Suspended Additional Information Omeprazole 20 MG Oral Capsule Delayed Release (PriLOSEC)Indicati ons:GERD (gastroesophageal reflux disease) TAKE 1 CAPSULE BY MOUTH ONCE DAILY. MAY TAKE AN ADDITIONAL DOSE DAILY FOR PERSISTENT HEARTBURN 90 Capsule 3 07/07/2023 Suspended Additional Information OneTouch Verio In Vitro Strip (Glucose Blood) Use once daily as directed, E11.9 100 Strip 3 09/02/2023 Suspended Additional Information Rosuvastatin Calcium 20 MG Oral Tablet (Crestor)Indicatio ns:Dyslipidemia, goal LDL below 100 TAKE 1 TABLET BY MOUTH EVERY MORNING 90 Tablet 3 09/05/2023 Suspended Additional Information Patient not taking.Reported on 01/29/2024 Fenofibrate 48 MG Oral Tablet (Tricor) TAKE 1 TABLET BY MOUTH EVERY MORNING 90 Tablet 09/18/2023 Suspended Additional Information Patient not taking.Reason: Other - Use Comments (not taking due to cost of medication), Reported on 11/06/2023 Dapagliflozin Propanediol 10 MG Oral Tablet (Farxiga)Indicatio ns:Type 2 diabetes mellitus with hemoglobin A1c goal of less than 8.0% (HCC) Take 1 Tablet by mouth in the morning. Obtaining via PAP. 120 Tablet 2 10/08/2023 Suspended Additional Information Ozempic (2 MG/DOSE) 8 MG/3ML Subcutaneous Solution Pen-injector (Semaglutide (2 MG/DOSE))Indicatio ns:DM type 2 causing neurological disease (HCC) 10/22/2023 Suspended metFORMIN HCl 1000 MG Oral Tablet (Glucophage) TAKE 1 TABLET BY MOUTH TWICE DAILY every morning and at bedtime 180 Tablet 3 11/19/2023 Suspended Additional Information Fluticasone Propionate 50 MCG/ACT Nasal Suspension (Flonase) Administer 2 Sprays into each nostril in the morning. 16 g 11/21/2023 Suspended Additional Information Gabapentin 300 MG Oral Capsule (Neurontin)Indicat ions:DM type 2 causing neurological disease (HCC) TAKE 1 CAPSULE BY MOUTH TWICE DAILY 180 Capsule 3 12/09/2023 Suspended Additional Information Patient not taking.Reported on 12/15/2023 Repaglinide 2 MG Oral Tablet (Prandin) Take 2 Tablets by mouth every night at bedtime. Suspended Mupirocin Calcium 2 % Nasal Ointment (Bactroban Nasal) Administer into nostril 2 times a day. For 5 days 1 Each 01/22/2024 Suspended Additional Information Chlorhexidine Gluconate 4 % External Liquid Use to wash in shower for 5 days leading up to surgery 120 mL 01/22/2024 Suspended Additional Information Aspirin 81 MG Oral Tablet Delayed Release Take 1 Tablet by mouth in the morning. 01/15/2024 Suspended documented as of this encounter (statuses as of 01/30/2024) Active Problems Problem Noted Date Diagnosed Date Coronary artery disease of [place] artery of [place] heart with stable angina pectoris 01/21/2024 Immunosuppressed [...] as of this encounter (statuses as of 01/30/2024) Resolved Problems Problem Noted Date Diagnosed Date [...] as of this encounter (statuses as of 01/30/2024) Immunizations Name Administration Dates Next Due COVID-19 mRNA, LNP-s, No Pre serve, 2-Dose Series ([employer]) 03/04/2022,06/09/2021,11/14/2020,05/2021 COVID-19, MRNA-LNP, 23-24, P F, 30 MCG/0.3 mL, 12 YRS AND ABOVE, IM ([employer]) 07/21/2023 Covid-19, Mrna, Lnp-s, Pf, B ivalent, [...] No 12/27/2020 documented as of this encounter Plan of Treatment Upcoming Encounters Date Type Department Care Team (Late st Contact Info) Description 02/26/2024 11:00 AM EDT Office Visit Pharm[facility], [place] [address] [address] [place] [facility] [address] [address] 02/26/2024 11:20 AM EDT Office Visit Family [facility], [place] [address] [place] [address] Winston Luna [facility] [address] [facility] [place] [address] 05/12/2024 9:50 AM EDT Laboratory Laboratory, [place] [address] [place] [id number] [place] [facility] [address] [place] [address] 05/19/2024 10:30 AM EDT Office Visit Hematology/Oncology [facility] [address] [place] [address] Estrella Bull MD [address] [place] [address] 07/23/2024 1:00 PM EST Office Visit Dermatology [facility] [address] [place] [address] Tay Alejandra MD [address] [facility] [place] [address] Scheduled Procedures Name Priority Associated Diagnoses Date/Ti [...] 08/25/2023, 04/08, 08/21/2021, Additional history exists GFR 01/29/2025 01/30/2024, 01/07, 01/29/2024, Additional history exists DTaP,Tdap,and Td Vaccines (3 [...] this encounter Medical Devices Implanted Type Area Rotary Drum Dyer Device Identifier Shelf Expiration Date Model / Serial / Lot Mesh Plug Prefix [id number] [id number] - [id number] Implanted:Qty: 1 on 06/17/2016 by Nehemiah Guevara DO at OR [facility] Left: Groin CR BARD : DAVOL 04/07/2019 [id number] / / [id number] Prime Fenestrated Screw Implanted:Qty: 4 on 12/28/2020 by Nehemiah Neal III, MD at OR [facility] N/A: Back 12/28/2021 [id number] / / Prime Fenestrrated Screw Implanted:Qty: 6 on 12/28/2020 by Nehemiah Neal III, MD at OR [facility] N/A: Back 12/28/[id number] / / Description:VIPER PRIME X TA B 7 X 50 MM TI Screw Set [facility] [id number] - [id number] Implanted:Qty: 10 on 12/28/2020 by Nehemiah Neal III, MD at OR [facility] N/A: Back JNJ : [employer] 12/28/2021 [id number] / / Roxi Implanted:Qty: 2 on 12/28/2020 by Nehemiah Neal III, MD at OR [facility] N/A: Back 12/28/2021 [id number] / / Description:VIPER2 STRAIGHT ROXI 20 MM COCR Patch Hernia Ventralex l - [id number] Implanted:Qty: 1 on 01/14/2023 by Kashif Deal MD at OR [facility] N/A: Abdomen CR BARD : DAVOL 07/05/2024 [id number] / / [id number] Suture Steel 6 B&S19 M654g - [id number] Implanted:Qty: 7 on 01/29/2024 by Aravind Rust MD at OR [facility] N/A: Sternum JNJ : [employer] 07/08/2028 [id number] / / [id number] Marker Coronary - [id number] Implanted:Qty: 1 on 01/29/2024 by Aravind Rust MD at OR [facility] N/A: Aorta [employer] 01/05/2027 [facility] / / [id number] Valve Inspiris Resilia 25mm - [id number] - [id number] Implanted:Qty: 1 on 01/29/2024 by Aravind Rust MD at OR [facility] N/A: Heart [employer] [id number] 07/13/2027 [id number] / [id number] / [id number] documented as of this encounter Procedures Procedure Name Priority Date/Time Associated Diagnosis Comments HC 2D BUFFY PROBE PLCMT/REPORT I&A Routine 01/29/2024 9:00 AM EDT Valvular heart disease documented in this encounter Results * CV ECHO, BUFFY INTRAOPERATIVE (01/29/2024 9:00 AM EDT) LEFT VENTRICULAR EJECTION FRACTION 55 % [facility] 01/29/2024 8:11 AM EDT Shelbi Burroughs [facility] documented in this encounter Advance Directives * Full Code (Latest Code Status on File) Date Activated Date Inactivated Comments 01/29/2024 1:07 PM This order ref lects the patients [...] Directives occurred with: Not Discussed Care Teams Produce Laborer Relationship Specialty Start Date End Date Winston Luna MD [address] [place] [address] PCP - General 07/08/1999 documented as of this encounter
--- OUTSIDE RECORDS SUMMARY | 2024-02-09 13:08 | External Medical Summary ---
Author Name Unknown Address Unknown Organization K01:[facility] [place] [address] [place] [address] Laboratory Report Ordering Provider Test Date Status TONI MONTAGUE 02/01/2024 04:53:00 Final Observation Date Value Abnormality Reference (Units ) Status BUN 02/01/2024 04:53:00 44 Above high normal 6-20 (mg/dL) Final Creatinine 02/01/2024 04:53:00 1.2 0.6-1.2 (mg/dL) Final Glomerular filtration rate/1.73 sq M.predicted [Volume Rate/Area] in Serum, Plasma or Blood by Creatinine-based formula (CKD-EPI) 02/01/2024 04:53:00 67 >=60 (mL/min) Final eGFR is calculated based on the CKD-EPI 2020 equation Sodium 02/01/2024 04:53:00 132 Below low normal 135 -146 (mmol/L) Final Potassium 02/01/2024 04:53:00 4.7 3.5-5.1 (m mol/L) Final Cl 02/01/2024 04:53:00 99 98-107 (mm ol/L) Final CO2 02/01/2024 04:53:00 23 22-32 (mmo l/L) Final Anion gap 02/01/2024 04:53:00 10 7-15 (mmol /L) Final Glucose 02/01/2024 04:53:00 154 Above high normal 70 -120 (mg/dL) Final Calcium 02/01/2024 04:53:00 8.2 Below low normal 8.4 -10.2 (mg/dL) Final Performing Location [facility] [place] [address] [place] [address]
--- OUTSIDE RECORDS SUMMARY | 2024-02-09 13:08 | External Medical Summary ---
Author Name Unknown Address Unknown Organization K01:[facility] - [address] [place] [address] Laboratory Report Ordering Provider Test Date Status TONI MONTAGUE 01/31/2024 04:32:00 Final Observation Date Value Abnormality Reference (Units ) Status SYNC LEUKOCYTES IN BLOOD BY AUTOMATED COUNT 01/31/2024 04:32:00 58.78 Above upper panic limits 4.00-10.80 (K/uL) Final Neutrophils/100 leukocytes in Blood by Manual count 01/31/2024 04:32:00 7.5 Below low normal 40.0-75.0 (%) Final Lymphocytes/100 leukocytes in Blood by Manual count 01/31/2024 04:32:00 91.5 Above high normal 18.0-42.0 (%) Final Known CLL.
null Monocytes/100 leukocytes in Blood by Manual count 01/31/2024 04:32:00 1.0 1.0-11.0 (%) Final Neutrophils [#/volume] in Blood by Manual count 01/31/2024 04:32:00 4.41 1.80-7.70 (K/uL) Final Lymphocytes [#/volume] in Blood by Manual count 01/31/2024 04:32:00 53.78 Above high normal 1.00-4.80 (K/uL) Final Monocytes [#/volume] in Blood by Manual count 01/31/2024 04:32:00 0.59 0.00-1.10 (K/uL) Final Smudge cells [Presence] in Blood by Light microscopy 01/31/2024 04:32:00 Present Abnormal None Seen Final Performing Location [facility] - [address] [facility] [address]
--- OUTSIDE RECORDS SUMMARY | 2024-02-09 13:08 | External Medical Summary ---
Author Name Unknown Address Unknown Organization : Laboratory Report Ordering Provider Test Date Status IRASEMA NORMAN 01/31/2024 01:54:08 Final Observation Date Value Abnormality Reference (Units ) Status Glucose Point of Care 01/31/2024 01:54:08 52 Below low normal 70-120 (mg/dL) Final Performing Location
--- OUTSIDE RECORDS SUMMARY | 2024-02-09 13:08 | External Medical Summary ---
Author Name Unknown Address Unknown Organization K01:[facility] [place] [address] [place] [address] Laboratory Report Ordering Provider Test Date Status TONI MONTAGUE 02/02/2024 04:45:00 Final Observation Date Value Abnormality Reference (Units ) Status BUN 02/02/2024 04:45:00 54 Above high normal 6-20 (mg/dL) Final Creatinine 02/02/2024 04:45:00 0.9 0.6-1.2 (mg/dL) Final Glomerular filtration rate/1.73 sq M.predicted [Volume Rate/Area] in Serum, Plasma or Blood by Creatinine-based formula (CKD-EPI) 02/02/2024 04:45:00 89 >=60 (mL/min) Final eGFR is calculated based on the CKD-EPI 2020 equation Sodium 02/02/2024 04:45:00 132 Below low normal 135 -146 (mmol/L) Final Potassium 02/02/2024 04:45:00 4.6 3.5-5.1 (m mol/L) Final Cl 02/02/2024 04:45:00 97 Below low normal 98- 107 (mmol/L) Final CO2 02/02/2024 04:45:00 24 22-32 (mmo l/L) Final Anion gap 02/02/2024 04:45:00 11 7-15 (mmol /L) Final Glucose 02/02/2024 04:45:00 153 Above high normal 70 -120 (mg/dL) Final Calcium 02/02/2024 04:45:00 8.2 Below low normal 8.4 -10.2 (mg/dL) Final Performing Location [facility] [place] [address] [place] [address]
--- OUTSIDE RECORDS SUMMARY | 2024-02-09 13:08 | External Medical Summary ---
Author Name Unknown Address Unknown Organization : Laboratory Report Ordering Provider Test Date Status IRASEMA NORMAN 01/30/2024 23:40:43 Final Observation Date Value Abnormality Reference (Units ) Status Glucose Point of Care 01/30/2024 23:40:43 111 70-120 (mg/dL) Final Performing Location
--- OUTSIDE RECORDS SUMMARY | 2024-02-09 13:08 | External Medical Summary ---
Author Name Unknown Address Unknown Organization K01:LAB[facility] - [address] [place] [address] Laboratory Report Ordering Provider Test Date Status TONI MONTAGUE 02/01/2024 04:53:00 Final Observation Date Value Abnormality Reference (Units ) Status SYNC LEUKOCYTES IN BLOOD BY AUTOMATED COUNT 02/01/2024 04:53:00 50.35 Above upper panic limits 4.00-10.80 (K/uL) Final Neutrophils/100 leukocytes in Blood by Manual count 02/01/2024 04:53:00 12.0 Below low normal 40.0-75.0 (%) Final Lymphocytes/100 leukocytes in Blood by Manual count 02/01/2024 04:53:00 87.5 Above high normal 18.0-42.0 (%) Final Monocytes/100 leukocytes in Blood by Manual count 02/01/2024 04:53:00 0.5 Below low normal 1.0-11.0 (%) Final Neutrophils [#/volume] in Blood by Manual count 02/01/2024 04:53:00 6.04 1.80-7.70 (K/uL) Final Lymphocytes [#/volume] in Blood by Manual count 02/01/2024 04:53:00 44.06 Above high normal 1.00-4.80 (K/uL) Final Monocytes [#/volume] in Blood by Manual count 02/01/2024 04:53:00 0.25 0.00-1.10 (K/uL) Final Smudge cells [Presence] in Blood by Light microscopy 02/01/2024 04:53:00 Present Abnormal None Seen Final Performing Location [facility] - [address] [place] [address]
--- OUTSIDE RECORDS SUMMARY | 2024-02-09 13:08 | External Medical Summary ---
Author Name Unknown Address Unknown Organization : Laboratory Report Ordering Provider Test Date Status IRASEMA NORMAN 01/30/2024 13:40:57 Final Observation Date Value Abnormality Reference (Units ) Status Glucose Point of Care 01/30/2024 13:40:57 108 70-120 (mg/dL) Final Performing Location
--- OUTSIDE RECORDS SUMMARY | 2024-02-09 13:08 | External Medical Summary ---
Author Name Unknown Address Unknown Organization : Laboratory Report Ordering Provider Test Date Status IRASEMA NORMAN 02/01/2024 16:31:47 Final Observation Date Value Abnormality Reference (Units ) Status Glucose Point of Care 02/01/2024 16:31:47 172 Above high normal 70-120 (mg/dL) Final Performing Location
--- OUTSIDE RECORDS SUMMARY | 2024-02-09 13:08 | External Medical Summary ---
Author Name Unknown Address Unknown Organization K01:[facility] - [address] [place] [address] Laboratory Report Ordering Provider Test Date Status CLARITONI GLEASON 01/31/2024 04:32:00 Final Observation Date Value Abnormality Reference (Units ) Status Magnesium 01/31/2024 04:32:00 2.1 1.5-2.6 (m g/dL) Final Performing Location [facility] - [address] [place] [address]
--- OUTSIDE RECORDS SUMMARY | 2024-02-09 13:08 | External Medical Summary ---
Author Name Unknown Address Unknown Organization : Laboratory Report Ordering Provider Test Date Status IRASEMA NORMAN 01/30/2024 16:11:49 Final Observation Date Value Abnormality Reference (Units ) Status Glucose Point of Care 01/30/2024 16:11:49 136 Above high normal 70-120 (mg/dL) Final Performing Location
--- OUTSIDE RECORDS SUMMARY | 2024-02-09 13:08 | External Medical Summary ---
Author Name Unknown Address Unknown Organization K01:[facility] [place] [address] [place] [address] Laboratory Report Ordering Provider Test Date Status TONI MONTAGUE 02/01/2024 04:53:00 Final Observation Date Value Abnormality Reference (Units ) Status WBC, Total 02/01/2024 04:53:00 50.35 Above upper panic limits 4.00-10.80 (K/uL) Final RBC 02/01/2024 04:53:00 2.62 4.50-5.25 (M/uL) Final Hemoglobin 02/01/2024 04:53:00 8.4 Below low normal 14.0-16.8 (g/dL) Final HCT 02/01/2024 04:53:00 26.2 Below low normal 40.0-48.4 (%) Final MCV 02/01/2024 04:53:00 100.0 82.0-99.5 (fL) Final MCH 02/01/2024 04:53:00 32.1 27.0-34.0 (pg) Final MCHC 02/01/2024 04:53:00 32.1 32.0-36.0 (g/dL) Final RDW 02/01/2024 04:53:00 15.0 11.5-15.5 (%) Final Platelets 02/01/2024 04:53:00 79 Below low normal 140-400 (K/uL) Final MPV 02/01/2024 04:53:00 11.3 6.6-11.1 (fL) Final Nucleated erythrocytes/100 leukocytes [Ratio] in Blood by Automated count 02/01/2024 04:53:00 0 <=0 (/100 WBCs) Final Performing Location [facility] [place] [address] [place] [address]
--- OUTSIDE RECORDS SUMMARY | 2024-02-09 13:08 | External Medical Summary ---
Author Name Unknown Address Unknown Organization K01:[facility] - [address] [facility] [address] Laboratory Report Ordering Provider Test Date Status TONI MONTAGUE 02/02/2024 04:45:00 Final Observation Date Value Abnormality Reference (Units ) Status SYNC LEUKOCYTES IN BLOOD BY AUTOMATED COUNT 02/02/2024 04:45:00 51.92 Above upper panic limits 4.00-10.80 (K/uL) Final Neutrophils/100 leukocytes in Blood by Manual count 02/02/2024 04:45:00 6.5 Below low normal 40.0-75.0 (%) Final Lymphocytes/100 leukocytes in Blood by Manual count 02/02/2024 04:45:00 93.0 Above high normal 18.0-42.0 (%) Final Known CLL.
null Monocytes/100 leukocytes in Blood by Manual count 02/02/2024 04:45:00 0.5 Below low normal 1.0-11.0 (%) Final Neutrophils [#/volume] in Blood by Manual count 02/02/2024 04:45:00 3.37 1.80-7.70 (K/uL) Final Lymphocytes [#/volume] in Blood by Manual count 02/02/2024 04:45:00 48.29 Above high normal 1.00-4.80 (K/uL) Final Monocytes [#/volume] in Blood by Manual count 02/02/2024 04:45:00 0.26 0.00-1.10 (K/uL) Final Smudge cells [Presence] in Blood by Light microscopy 02/02/2024 04:45:00 Present Abnormal None Seen Final Performing Location [facility] - [address] [facility] [address]
--- OUTSIDE RECORDS SUMMARY | 2024-02-09 13:08 | External Medical Summary ---
Author Name Unknown Address Unknown Organization : Laboratory Report Ordering Provider Test Date Status IRASEMA NORMAN 01/31/2024 15:58:51 Final Observation Date Value Abnormality Reference (Units ) Status Glucose Point of Care 01/31/2024 15:58:51 240 Above high normal 70-120 (mg/dL) Final Performing Location
--- OUTSIDE RECORDS SUMMARY | 2024-02-09 13:08 | External Medical Summary ---
Author Name Unknown Address Unknown Organization K01:[facility] - [address] [place] [address] Laboratory Report Ordering Provider Test Date Status CLARITONI GLEASON 02/02/2024 04:45:00 Final Observation Date Value Abnormality Reference (Units ) Status Magnesium 02/02/2024 04:45:00 2.5 1.5-2.6 (m g/dL) Final Performing Location [facility] - [address] [place] [address]
--- OUTSIDE RECORDS SUMMARY | 2024-02-09 13:08 | External Medical Summary ---
Author Name Unknown Address Unknown Organization : Laboratory Report Ordering Provider Test Date Status IRASEMA NORMAN 01/31/2024 06:32:07 Final Observation Date Value Abnormality Reference (Units ) Status Glucose Point of Care 01/31/2024 06:32:07 231 Above high normal 70-120 (mg/dL) Final Performing Location
--- OUTSIDE RECORDS SUMMARY | 2024-02-09 13:08 | External Medical Summary ---
Author Name Unknown Address Unknown Organization : Laboratory Report Ordering Provider Test Date Status IRASEMA NORMAN 01/31/2024 02:21:18 Final Observation Date Value Abnormality Reference (Units ) Status Glucose Point of Care 01/31/2024 02:21:18 101 70-120 (mg/dL) Final Performing Location
--- OUTSIDE RECORDS SUMMARY | 2024-02-09 13:08 | External Medical Summary ---
Author Name Unknown Address Unknown Organization : Laboratory Report Ordering Provider Test Date Status IRASEMA NORMAN 02/01/2024 11:06:55 Final Observation Date Value Abnormality Reference (Units ) Status Glucose Point of Care 02/01/2024 11:06:55 206 Above high normal 70-120 (mg/dL) Final Performing Location
--- OUTSIDE RECORDS SUMMARY | 2024-02-09 13:08 | External Medical Summary ---
Author Name Unknown Address Unknown Organization [id number]:LABORATORY [facility] [place] - [address] [place] [address] Laboratory Report Ordering Provider Test Date Status TONI MONTAGUE 02/02/2024 04:45:00 Final Observation Date Value Abnormality Reference (Units ) Status WBC, Total 02/02/2024 04:45:00 51.92 Above upper panic limits 4.00-10.80 (K/uL) Final RBC 02/02/2024 04:45:00 2.53 4.50-5.25 (M/uL) Final Hemoglobin 02/02/2024 04:45:00 8.2 Below low normal 14.0-16.8 (g/dL) Final HCT 02/02/2024 04:45:00 25.3 Below low normal 40.0-48.4 (%) Final MCV 02/02/2024 04:45:00 100.0 82.0-99.5 (fL) Final MCH 02/02/2024 04:45:00 32.4 27.0-34.0 (pg) Final MCHC 02/02/2024 04:45:00 32.4 32.0-36.0 (g/dL) Final RDW 02/02/2024 04:45:00 15.3 11.5-15.5 (%) Final Platelets 02/02/2024 04:45:00 90 Below low normal 140-400 (K/uL) Final MPV 02/02/2024 04:45:00 11.4 6.6-11.1 (fL) Final Nucleated erythrocytes/100 leukocytes [Ratio] in Blood by Automated count 02/02/2024 04:45:00 0 <=0 (/100 WBCs) Final Performing Location LABORATORY [facility] [place] - [address] [place] [address]
--- OUTSIDE RECORDS SUMMARY | 2024-02-09 13:08 | External Medical Summary ---
Author Name Unknown Address Unknown Organization K01:[facility]ATORY [facility] - [address] [place] [address] Laboratory Report Ordering Provider Test Date Status CLARITONI GLEASON 02/01/2024 04:53:00 Final Observation Date Value Abnormality Reference (Units ) Status Magnesium 02/01/2024 04:53:00 2.3 1.5-2.6 (m g/dL) Final Performing Location [facility]ATORY [facility] - [address] [place] [address]
--- OUTSIDE RECORDS SUMMARY | 2024-02-09 13:08 | External Medical Summary ---
Author Name Unknown Address Unknown Organization : Laboratory Report Ordering Provider Test Date Status IRASEMA NORMAN 01/30/2024 16:56:23 Final Observation Date Value Abnormality Reference (Units ) Status Glucose Point of Care 01/30/2024 16:56:23 160 Above high normal 70-120 (mg/dL) Final Performing Location
--- OUTSIDE RECORDS SUMMARY | 2024-02-09 13:08 | External Medical Summary ---
Author Name Unknown Address Unknown Organization : Laboratory Report Ordering Provider Test Date Status IRASEMA NORMAN 01/30/2024 22:40:45 Final Observation Date Value Abnormality Reference (Units ) Status Glucose Point of Care 01/30/2024 22:40:45 113 70-120 (mg/dL) Final Performing Location
--- OUTSIDE RECORDS SUMMARY | 2024-02-09 13:08 | External Medical Summary ---
Author Name Unknown Address Unknown Organization : Laboratory Report Ordering Provider Test Date Status IRASEMA NORMAN 02/01/2024 06:49:20 Final Observation Date Value Abnormality Reference (Units ) Status Glucose Point of Care 02/01/2024 06:49:20 159 Above high normal 70-120 (mg/dL) Final Performing Location
--- OUTSIDE RECORDS SUMMARY | 2024-02-09 13:08 | External Medical Summary ---
Author Name Unknown Address Unknown Organization : Laboratory Report Ordering Provider Test Date Status IRASEMA NORMAN 01/31/2024 11:00:48 Final Observation Date Value Abnormality Reference (Units ) Status Glucose Point of Care 01/31/2024 11:00:48 255 Above high normal 70-120 (mg/dL) Final Performing Location
--- OUTSIDE RECORDS SUMMARY | 2024-02-09 13:08 | External Medical Summary | Summary of Care ---
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 [I35.0] Coronary artery disease of [place] artery of [place] heart with stable angina pectoris (HCC) [I25.118] Procedures CABG, ARTERIAL, SINGLE CABG, ARTERY-VEIN, TWO ENDO,VIDEO ASSIST HARVEST OLEG REPLACEMENT AORTIC VALVE, BYPASS WITH PROSTHETIC VALVE CORONARY ARTERY BYPASS GRAFT USING ARTERY 1 GRAFT CORONARY ARTERY BYPASS GRAFT ARTERIAL AND VENOUS 2 GRAFTS ENDOSCOPY VIDEO ASSISTED HARVEST VEIN WITH REPLACEMENT AORTIC VALVE Aravind Rust MD [address] [place] [address] Or [facility] [address] [place] [address] Referral ID Status Reason Start Date Expiration Date Visits Re quested Visits Authorized [id number] Encounter Details Date Type Department Care Team (Latest Contact Info) Description 01/29/2024 12:19 PM EDT - 01/29/2024 11:59 PM EDT Hospital Encounter Cardiac Studies [facility] [address] [place] [address] Discharge Disposition: Home - Self Care Allergies Active Allergy Reactions Criticality Noted Date Comments Amoxicillin Nausea/vomiting Medium 06/30/2018 documented as of this encounter (statuses as of 01/30/2024) Medications Medication Sig Dispensed Refills Start Date End Date Status MULTI-VITAMIN DAILY PO TABS Take by mouth . Suspended Blood Glucose Monitoring Suppl ([employer] ULTRA SYSTEM) w/Device KITIndications:Typ e 2 diabetes [...] artery disease of n ative artery of [place] heart with stable angina pectoris 01/21/2024 Immunosuppressed [...] mRNA, LNP-s, No Pre serve, 2-Dose Series ([employer]) 03/04/2022,06/09/2021,11/14/2020,05/2021 COVID-19, MRNA-LNP, 23-24, P F, 30 MCG/0.3 mL, 12 YRS AND ABOVE, IM (its learning-[facility]) 07/21/2023 Covid-19, Mrna, Lnp-s, Pf, B [...] 02/26/2024 11:00 AM EDT Office [place] [address] [address] [facility] [address] [address] 02/26/2024 11:20 AM EDT Office Visit Family [facility] [place] [address] [place] [address] Winston Luna [facility] [address] [facility] [place] [address] 05/12/2024 9:50 AM EDT Laboratory Laboratory, [place] [address] [place] [id number] [facility] [address] [place] [address] 05/19/2024 10:30 AM EDT Office Visit Hematology/Oncology [facility] [address] [facility] [place] [address] Estrella Bull MD [address] [facility] [place] [address] 07/23/2024 1:00 PM EST Office Visit Dermatology [facility] [address] [facility] [place] [address] Tay Alejandra MD [address] [facility] [place] [address] Scheduled Procedures Name Priority Associated Diagnoses Date/Ti [...] this encounter Medical Devices Implanted Type Area Assembler Seat Device Identifier Shelf Expiration Date Model / Serial / Lot Mesh Plug Prefix Lg [id number] - [id number] Implanted:Qty: 1 on 06/17/2016 by Nehemiah Guevara DO at OR [facility] Left: Groin CR BARD : DAVOL 04/07/2019 [id number] / / [id number] Prime Fenestrated Screw Implanted:Qty: 4 on 12/28/2020 by Nehemiah Neal III, MD at OR [facility] N/A: Back 12/28/2021 [id number] / / Prime Fenestrrated Screw Implanted:Qty: 6 on 12/28/2020 by Nehemiah Neal III, MD at OR [facility] N/A: Back 12/28/[id number] / / Description:VIPER PRIME X TA B 7 X 50 MM TI Screw Set [facility] [id number] - [id number] Implanted:Qty: 10 on 12/28/2020 by Nehemiah Neal III, MD at OR [facility] N/A: Back JNJ : [employer] 12/28/2021 [id number] / / Roxi Implanted:Qty: 2 on 12/28/2020 by Nehemiah Neal III, MD at OR [facility] N/A: Back 12/28/2021 [id number] / / Description:VIPER2 STRAIGHT ROXI 20 MM COCR Patch Hernia Ventralex l - [id number] Implanted:Qty: 1 on 01/14/2023 by Kashif Deal MD at OR [facility] N/A: Abdomen CR BARD : DAVOL 07/05/2024 [id number] / / [id number] Suture Steel 6 B&S19 M654g - [id number] Implanted:Qty: 7 on 01/29/2024 by Aravind Rust MD at OR [facility] N/A: Sternum JNJ : [employer] 07/08/2028 [id number] / / [id number] Marker Coronary - [id number] Implanted:Qty: 1 on 01/29/2024 by Aravind Rust MD at OR [facility] N/A: Aorta [employer] 01/05/2027 [employer] / / [id number] Valve Inspiris Resilia 25mm - [id number] - [id number] Implanted:Qty: 1 on 01/29/2024 by Aravind Rust MD at OR [facility] N/A: Heart [employer] [id number] 07/13/2027 [id number] / [id number] / [id number] documented as of this encounter Procedures Procedure Name Priority Date/Time Associated Diagnosis Comments HC 2D BUFFY PROBE PLCMT/REPORT I&A Routine 01/29/2024 12:22 PM EDT Valvular heart disease documented in this encounter Results * CV ECHO, BUFFY INTRAOPERATIVE (01/29/2024 12:22 PM EDT) LEFT VENTRICULAR EJECTION FRACTION 65 % [facility] CARDIOLOG[facility] 01/29/2024 8:35 AM EDT Shelbi Burroughs RUTHY ECHOCARDIOLOGY JENNIFER [...] Directives occurred with: Not Discussed Care Teams Bank Accountant Relationship Specialty Start Date End Date Winston Luna MD [address] [facility] [place] [address] PCP - General 07/08/1999 documented as of this encounter
--- OUTSIDE RECORDS SUMMARY | 2024-02-09 13:08 | External Medical Summary ---
Author Name Unknown Address Unknown Organization [id number]:LABORATORY [facility] [place] - [address] [place] [address] Laboratory Report Ordering Provider Test Date Status TONI MONTAGUE 01/31/2024 04:32:00 Final Observation Date Value Abnormality Reference (Units ) Status BUN 01/31/2024 04:32:00 23 Above high normal 6-20 (mg/dL) Final Creatinine 01/31/2024 04:32:00 0.7 0.6-1.2 (mg/dL) Final Glomerular filtration rate/1.73 sq M.predicted [Volume Rate/Area] in Serum, Plasma or Blood by Creatinine-based formula (CKD-EPI) 01/31/2024 04:32:00 >90 >=60 (mL/min) Final eGFR is calculated based on the CKD-EPI 2020 equation Sodium 01/31/2024 04:32:00 130 Below low normal 135 -146 (mmol/L) Final Potassium 01/31/2024 04:32:00 4.1 3.5-5.1 (m mol/L) Final Cl 01/31/2024 04:32:00 95 Below low normal 98- 107 (mmol/L) Final CO2 01/31/2024 04:32:00 24 22-32 (mmo l/L) Final Anion gap 01/31/2024 04:32:00 11 7-15 (mmol /L) Final Glucose 01/31/2024 04:32:00 146 Above high normal 70 -120 (mg/dL) Final Calcium 01/31/2024 04:32:00 8.4 8.4-10.2 ( mg/dL) Final Performing Location LABORATORY [facility] [place] - [address] [place] [address]
--- OUTSIDE RECORDS SUMMARY | 2024-02-09 13:08 | External Medical Summary ---
Author Name Unknown Address Unknown Organization [id number]:LABORATORY [facility] [place] - [address] [place] [address] Laboratory Report Ordering Provider Test Date Status NATALIIA JONES 01/31/2024 13:54:00 Final Observation Date Value Abnormality Reference (Units ) Status BUN 01/31/2024 13:54:00 30 Above high normal 6-20 (mg/dL) Final Creatinine 01/31/2024 13:54:00 1.0 0.6-1.2 (mg/dL) Final Glomerular filtration rate/1.73 sq M.predicted [Volume Rate/Area] in Serum, Plasma or Blood by Creatinine-based formula (CKD-EPI) 01/31/2024 13:54:00 82 >=60 (mL/min) Final eGFR is calculated based on the CKD-EPI 2020 equation Sodium 01/31/2024 13:54:00 133 Below low normal 135 -146 (mmol/L) Final Potassium 01/31/2024 13:54:00 5.2 Above high normal 3. 5-5.1 (mmol/L) Final Cl 01/31/2024 13:54:00 97 Below low normal 98- 107 (mmol/L) Final CO2 01/31/2024 13:54:00 22 22-32 (mmo l/L) Final Anion gap 01/31/2024 13:54:00 14 7-15 (mmol /L) Final Glucose 01/31/2024 13:54:00 291 Above high normal 70 -120 (mg/dL) Final Calcium 01/31/2024 13:54:00 8.2 Below low normal 8.4 -10.2 (mg/dL) Final Performing Location LABORATORY [facility] [place] - [address] [place] [address]
--- OUTSIDE RECORDS SUMMARY | 2024-02-09 13:09 | External Medical Summary ---
Author Name Unknown Address Unknown Organization : Laboratory Report Ordering Provider Test Date Status IRASEMA NORMAN 01/30/2024 08:45:04 Final Observation Date Value Abnormality Reference (Units ) Status Glucose Point of Care 01/30/2024 08:45:04 145 Above high normal 70-120 (mg/dL) Final Performing Location
--- OUTSIDE RECORDS SUMMARY | 2024-02-09 13:09 | External Medical Summary ---
Author Name Unknown Address Unknown Organization : Laboratory Report Ordering Provider Test Date Status IRASEMA NORMAN 01/30/2024 02:27:02 Final Observation Date Value Abnormality Reference (Units ) Status Glucose Point of Care 01/30/2024 02:27:02 117 70-120 (mg/dL) Final Performing Location
--- OUTSIDE RECORDS SUMMARY | 2024-02-09 13:09 | External Medical Summary ---
Author Name Unknown Address Unknown Organization K01:[facility] - [address] [place] [address] Laboratory Report Ordering Provider Test Date Status DEE DEE PATEL 01/30/2024 03:11:42 Final Observation Date Value Abnormality Reference (Units ) Status SYNC LEUKOCYTES IN BLOOD BY AUTOMATED COUNT 01/30/2024 03:11:42 39.30 Above high normal 4.00-10.80 (K/uL) Final Lymphocytes/100 leukocytes in Blood by Manual count 01/30/2024 03:11:42 100.0 Above high normal 18.0-42.0 (%) Final Lymphocytes [#/volume] in Blood by Manual count 01/30/2024 03:11:42 39.30 Above high normal 1.00-4.80 (K/uL) Final Smudge cells [Presence] in Blood by Light microscopy 01/30/2024 03:11:42 Present Abnormal None Seen Final Performing Location [facility] - [address] [place] [address]
--- OUTSIDE RECORDS SUMMARY | 2024-02-09 13:09 | External Medical Summary ---
Author Name Unknown Address Unknown Organization : Laboratory Report Ordering Provider Test Date Status IRASEMA NORMAN 01/29/2024 17:51:32 Final Observation Date Value Abnormality Reference (Units ) Status Glucose Point of Care 01/29/2024 17:51:32 141 Above high normal 70-120 (mg/dL) Final Performing Location
--- OUTSIDE RECORDS SUMMARY | 2024-02-09 13:09 | External Medical Summary ---
Author Name Unknown Address Unknown Organization : Laboratory Report Ordering Provider Test Date Status IRASEMA NORMAN 01/29/2024 21:02:29 Final Observation Date Value Abnormality Reference (Units ) Status Glucose Point of Care 01/29/2024 21:02:29 106 70-120 (mg/dL) Final Performing Location
--- OUTSIDE RECORDS SUMMARY | 2024-02-09 13:09 | External Medical Summary ---
Author Name Unknown Address Unknown Organization : Laboratory Report Ordering Provider Test Date Status IRASEMA NORMAN 01/29/2024 15:57:28 Final Observation Date Value Abnormality Reference (Units ) Status Glucose Point of Care 01/29/2024 15:57:28 144 Above high normal 70-120 (mg/dL) Final Performing Location
--- OUTSIDE RECORDS SUMMARY | 2024-02-09 13:09 | External Medical Summary ---
Author Name Unknown Address Unknown Organization K01:[place] [place] [address] [place] [address] Laboratory Report Ordering Provider Test Date Status DEE DEE PATEL 01/29/2024 18:56:59 Final Observation Date Value Abnormality Reference (Units ) Status WBC, Total 01/29/2024 18:56:59 54.10 Above upper panic limits 4.00-10.80 (K/uL) Final RBC 01/29/2024 18:56:59 2.94 4.50-5.25 (M/uL) Final Hemoglobin 01/29/2024 18:56:59 9.5 Below low normal 14.0-16.8 (g/dL) Final HCT 01/29/2024 18:56:59 28.9 Below low normal 40.0-48.4 (%) Final MCV 01/29/2024 18:56:59 98.3 82.0-99.5 (fL) Final MCH 01/29/2024 18:56:59 32.3 27.0-34.0 (pg) Final MCHC 01/29/2024 18:56:59 32.9 32.0-36.0 (g/dL) Final RDW 01/29/2024 18:56:59 14.4 11.5-15.5 (%) Final Platelets 01/29/2024 18:56:59 83 Below low normal 140-400 (K/uL) Final MPV 01/29/2024 18:56:59 10.2 6.6-11.1 (fL) Final Nucleated erythrocytes/100 leukocytes [Ratio] in Blood by Automated count 01/29/2024 18:56:59 0 <=0 (/100 WBCs) Final Performing Location [facility] [place] [address] [place] [address]
--- OUTSIDE RECORDS SUMMARY | 2024-02-09 13:09 | External Medical Summary ---
Author Name Unknown Address Unknown Organization : Laboratory Report Ordering Provider Test Date Status EDE DEE PATEL 01/30/2024 03:11:42 Final Observation Date Value Abnormality Reference (Units ) Status Performing Location
--- OUTSIDE RECORDS SUMMARY | 2024-02-09 13:09 | External Medical Summary ---
Author Name Unknown Address Unknown Organization K01:[facility] [place] [facility] [address] [place] [address] Laboratory Report Ordering Provider Test Date Status DEE DEE PATEL 01/30/2024 03:11:42 Final Observation Date Value Abnormality Reference (Units ) Status WBC, Total 01/30/2024 03:11:42 39.30 Above high normal 4.00-10.80 (K/uL) Final RBC 01/30/2024 03:11:42 2.70 4.50-5.25 (M/uL) Final Hemoglobin 01/30/2024 03:11:42 8.6 Below low normal 14.0-16.8 (g/dL) Final HCT 01/30/2024 03:11:42 26.0 Below low normal 40.0-48.4 (%) Final MCV 01/30/2024 03:11:42 96.3 82.0-99.5 (fL) Final MCH 01/30/2024 03:11:42 31.9 27.0-34.0 (pg) Final MCHC 01/30/2024 03:11:42 33.1 32.0-36.0 (g/dL) Final RDW 01/30/2024 03:11:42 14.5 11.5-15.5 (%) Final Platelets 01/30/2024 03:11:42 80 Below low normal 140-400 (K/uL) Final MPV 01/30/2024 03:11:42 10.6 6.6-11.1 (fL) Final Nucleated erythrocytes/100 leukocytes [Ratio] in Blood by Automated count 01/30/2024 03:11:42 0 <=0 (/100 WBCs) Final Performing Location [facility] [place] [address] [place] [address]
--- OUTSIDE RECORDS SUMMARY | 2024-02-09 13:09 | External Medical Summary ---
Author Name Unknown Address Unknown Organization K01:LABORATORY [facility] [place] - [address] [place] [address] Laboratory Report Ordering Provider Test Date Status DEE DEE PATEL 01/30/2024 03:11:42 Final Observation Date Value Abnormality Reference (Units ) Status BUN 01/30/2024 03:11:42 18 6-20 (mg/dL) Final Creatinine 01/30/2024 03:11:42 0.7 0.6-1.2 (mg/dL) Final Glomerular filtration rate/1.73 sq M.predicted [Volume Rate/Area] in Serum, Plasma or Blood by Creatinine-based formula (CKD-EPI) 01/30/2024 03:11:42 >90 >=60 (mL/min) Final eGFR is calculated based on the CKD-EPI 2020 equation Sodium 01/30/2024 03:11:42 140 135-146 (m mol/L) Final Potassium 01/30/2024 03:11:42 4.2 3.5-5.1 (m mol/L) Final Cl 01/30/2024 03:11:42 105 98-107 (mm ol/L) Final CO2 01/30/2024 03:11:42 26 22-32 (mmo l/L) Final Anion gap 01/30/2024 03:11:42 9 7-15 (mmol /L) Final Glucose 01/30/2024 03:11:42 126 Above high normal 70 -120 (mg/dL) Final Calcium 01/30/2024 03:11:42 7.9 Below low normal 8.4 -10.2 (mg/dL) Final Performing Location LABORATORY [facility] [place] - [address] [place] [address]
--- OUTSIDE RECORDS SUMMARY | 2024-02-09 13:09 | External Medical Summary ---
Author Name Unknown Address Unknown Organization : Laboratory Report Ordering Provider Test Date Status IRASEMA NORMAN 01/29/2024 23:34:44 Final Observation Date Value Abnormality Reference (Units ) Status Glucose Point of Care 01/29/2024 23:34:44 126 Above high normal 70-120 (mg/dL) Final Performing Location
--- OUTSIDE RECORDS SUMMARY | 2024-02-09 13:09 | External Medical Summary ---
Author Name Unknown Address Unknown Organization K01:[facility]ORY [facility] - [address] [place] [address] Laboratory Report Ordering Provider Test Date Status DEE DEE PATEL 01/30/2024 03:11:42 Final Observation Date Value Abnormality Reference (Units ) Status Magnesium 01/30/2024 03:11:42 2.2 1.5-2.6 (m g/dL) Final Performing Location [facility] - [address] [place] [address]
--- OUTSIDE RECORDS SUMMARY | 2024-02-09 13:09 | External Medical Summary ---
Author Name Unknown Address Unknown Organization : Laboratory Report Ordering Provider Test Date Status IRASEMA NORMAN 01/30/2024 04:54:13 Final Observation Date Value Abnormality Reference (Units ) Status Glucose Point of Care 01/30/2024 04:54:13 116 70-120 (mg/dL) Final Performing Location
--- OUTSIDE RECORDS SUMMARY | 2024-02-09 13:09 | External Medical Summary ---
Author Name Unknown Address Unknown Organization K01:[place] [facility] [place] [address] [place] [address] Laboratory Report Ordering Provider Test Date Status DEE DEE PATEL 01/30/2024 03:11:42 Final Stop Collection after Drew chu is removed Observation Date Value Abnormality Reference (Units ) Status Oxygen saturation in Venous blood 01/30/2024 03:11:42 69.0 40.0-85.0 (%) Final Performing Location [facility] - [address] [place] [address]
--- OUTSIDE RECORDS SUMMARY | 2024-02-09 13:09 | External Medical Summary | Summary of Care ---
Author Name Unknown Organization [facility] Address [address] [address] Phone [phone] Care Team Providers Care Spiral Spring Winder Name Role Phone Winston Luna MD Primary Care Provider [phone] Encounter Details Date Type Department Care Team (Late st Contact Info) Description 01/30/2024 Population Health External Data Unspecified Department Allergies Active Allergy Reactions Criticality Noted Date Comments Amoxicillin Nausea/vomiting Medium 06/30/2018 documented as of this encounter (statuses as of 01/30/2024) Medications Medication Sig Dispensed Refills Start Date End Date Status MULTI-VITAMIN DAILY PO TABS Take by mouth . 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 [...] mRNA, LNP-s, No Pre serve, 2-Dose Series (Be Here) 03/04/2022,06/09/2021,11/14/2020,02/0 05/2021 COVID-19, MRNA-LNP, 23-24, P F, 30 MCG/0.3 mL, 12 YRS AND ABOVE, IM (Sensorflare PC-Comirnat) 07/21/2023 Covid-19, Mrna, Lnp-s, Pf, B ivalent, 30 Mcg, IM, 12 yrs and above (Be Here) 06/26/2022 Pneumococcal Conjugate Vacc, 13 Valent (Prevnar) [...] 02/26/2024 11:00 AM EDT Office Visit Pharmacy, [place] [address] [place] [facility] [place] [address] [place] [facility] [address] [place] [address] 02/26/2024 11:20 AM EDT Office Visit Family [facility], [place] [address] [facility] [place] [phone] Winston Luna MD [address], [place] [id number] 05/12/2024 9:50 AM EDT Laboratory Laboratory, [place] [address] [place] [facility] [place] [address] [facility] [address], [place] [phone] 05/19/2024 10:30 AM EDT Office Visit Hematology/Oncology [facility] [place] [address] [place] [phone] Estrella Bull MD [address] [place] [address] 07/23/2024 1:00 PM EST Office Visit Dermatology [facility] [place] [address] [place] [address] Tay Alejandra MD [address] [place] [address] Scheduled Procedures Name Priority Associated Diagnoses Date/Ti [...] this encounter Medical Devices Implanted Type Area Windows Systems Engineer Device Identifier Shelf Expiration Date Model / Serial / Lot Mesh Plug Prefix Lg [id number] - [id number] Implanted:Qty: 1 on 06/17/2016 by Nehemiah Guevara DO at OR [facility] Left: Groin CR BARD : DAVOL 04/07/2019 [id number] / / [id number] Prime Fenestrated Screw Implanted:Qty: 4 on 12/28/2020 by Nehemiah Neal III, MD at OR [facility] N/A: Back 12/28/[id number] / / Prime Fenestrrated Screw Implanted:Qty: 6 on 12/28/2020 by Nehemiah Neal III, MD at OR [facility] N/A: Back 12/28/[id number] / / Description:VIPER PRIME X TA B 7 X 50 MM TI Screw Set Sng Inner [id number] - [id number] Implanted:Qty: 10 on 12/28/2020 by Nehemiah Neal III, MD at OR [facility] N/A: Back JNJ : [employer] 12/28/2021 [id number] / / Roxi Implanted:Qty: 2 on 12/28/2020 by Nehemiah Neal III, MD at OR [facility] N/A: Back 12/28/2021 [id number] / / Description:VIPER2 STRAIGHT ROXI 20 MM COCR Patch Hernia Ventralex l - [id number] Implanted:Qty: 1 on 01/14/2023 by Kashif Deal MD at OR [facility] N/A: Abdomen CR BARD : DAVOL 07/05/2024 [id number] / / [id number] Suture Steel 6 B&S19 M654g - [id number] Implanted:Qty: 7 on 01/29/2024 by Aravind Rust MD at OR [facility] N/A: Sternum JNJ : [employer] 07/08/2028 [id number] / / [id number] Marker Coronary - [id number] Implanted:Qty: 1 on 01/29/2024 by Aravind Rust MD at OR [facility] N/A: Aorta [employer] 01/05/2027 AM-SD / / [id number] Valve Inspiris Resilia 25mm - [id number] - [id number] Implanted:Qty: 1 on 01/29/2024 by Aravind Rust MD at OR [facility] N/A: Heart [employer] S[employer]IE [id number] 07/13/2027 [id number] / [id number] / [id number] documented as of this encounter Advance Directives [...] Directives occurred with: Not Discussed Care Teams Spiral Spring Winder Relationship Specialty Start Date End Date Winston Luna MD [address] [place] [address] PCP - General 07/08/1999 documented as of this encounter
--- OUTSIDE RECORDS SUMMARY | 2024-02-09 13:09 | External Medical Summary ---
Author Name Unknown Address Unknown Organization K01:LABORATORY [facility] - [address] [facility] [place] [address] Laboratory Report Ordering Provider Test Date Status DEE DEE PATEL 01/29/2024 18:58:01 Final Observation Date Value Abnormality Reference (Units ) Status Body temperature 01/29/2024 18:58:01 37.0 (C) Final pH of Arterial blood 01/29/2024 18:58:01 7.421 7.350-7.450 (units) Final Carbon dioxide [Partial pressure] in Arterial blood 01/29/2024 18:58:01 41.9 35.0-45.0 (mmHg) Final Oxygen [Partial pressure] in Arterial blood 01/29/2024 18:58:01 165.0 Above high normal 75.0-100.0 (mmHg) Final Base excess, Arterial 01/29/2024 18:58:01 2.5 Above high normal -2.0-2.0 (mmol/L) Final Hemoglobin [Mass/volume] in Blood by Oximetry 01/29/2024 18:58:01 9.6 Below low normal 14.0-16.8 (g/dL) Final Oxyhemoglobin, Arterial (FO2HB) 01/29/2024 18:58:01 97.5 94.0-99.0 (% total Hgb) Final Carboxyhemoglobin 01/29/2024 18:58:01 1.5 <=1.5 (% total Hgb) Final Smokers: 0-9.0 % Methemoglobin 01/29/2024 18:58:01 0.8 <=1.5 (% total Hgb) Final Deoxyhemoglobin/Hemog lobin.total in Arterial blood 01/29/2024 18:58:01 0.2 0.0-5.0 (% total Hgb) Final Oxygen content in Arterial blood 01/29/2024 18:58:01 13.5 Below low normal 15.0-24.0 (%vol) Final Potassium, Whole Blood 01/29/2024 18:58:01 3.9 3.5-5.1 (mmol/L) Final Sodium, Whole Blood 01/29/2024 18:58:01 142 135-146 (mmol/L) Final Chloride, Whole Blood 01/29/2024 18:58:01 104 98-107 (mmol/L) Final Calcium.ionized [Moles/volume] in Blood by Ion-selective membrane electrode (ISE) 01/29/2024 18:58:01 1.19 1.13-1.32 (mmol/L) Final Anion gap, Whole Blood 01/29/2024 18:58:01 11.6 7.0-15.0 (mmol/L) Final Glucose, whole blood 01/29/2024 18:58:01 143 Above high normal 70-120 (mg/dL) Final Oxygen/Total gas setting [Volume Fraction] Ventilator 01/29/2024 18:58:01 Not Provided (%) Final O2 FLOW, ARTERIAL - [facility] 01/29/2024 18:58:01 Not Provided (L/min) Final Bicarbonate, Venous, POC (i-STAT) 01/29/2024 18:58:01 26.7 23.0-31.0 (mmol/L) Final Performing Location [facility] [place] [address] [facility] [address]
--- OUTSIDE RECORDS SUMMARY | 2024-02-09 13:09 | External Medical Summary ---
Author Name Unknown Address Unknown Organization K01:[facility] [address] [facility] [place] [address] Laboratory Report Ordering Provider Test Date Status DEE DEE PATEL 01/29/2024 15:58:28 Final Observation Date Value Abnormality Reference (Units ) Status Body temperature 01/29/2024 15:58:28 37.0 (C) Final pH of Arterial blood 01/29/2024 15:58:28 7.453 Above high normal 7.350-7.450 (units) Final Carbon dioxide [Partial pressure] in Arterial blood 01/29/2024 15:58:28 32.7 Below low normal 35.0-45.0 (mmHg) Final Oxygen [Partial pressure] in Arterial blood 01/29/2024 15:58:28 203.0 Above high normal 75.0-100.0 (mmHg) Final Base excess, Arterial 01/29/2024 15:58:28 -0.5 -2.0-2.0 (mmol/L) Final Hemoglobin [Mass/volume] in Blood by Oximetry 01/29/2024 15:58:28 9.5 Below low normal 14.0-16.8 (g/dL) Final Oxyhemoglobin, Arterial (FO2HB) 01/29/2024 15:58:28 97.7 94.0-99.0 (% total Hgb) Final Carboxyhemoglobin 01/29/2024 15:58:28 1.6 Above high normal <=1.5 (% total Hgb) Final Smokers: 0-9.0 % Methemoglobin 01/29/2024 15:58:28 0.8 <=1.5 (% total Hgb) Final Deoxyhemoglobin/Hemoglobin.t don l in Arterial blood 01/29/2024 15:58:28 0.0 0.0-5.0 (% tot al Hgb) Final Oxygen content in Arterial blood 01/29/2024 15:58:28 Final Not calculated. Potassium, Whole Blood 01/29/2024 15:58:28 3.2 Below low normal 3.5-5.1 (mmol/L) Final Sodium, Whole Blood 01/29/2024 15:58:28 142 135-146 (mmol/L) Final Chloride, Whole Blood 01/29/2024 15:58:28 110 Above high normal 98-107 (mmol/L) Final Calcium.ionized [Moles/volume] in Blood by Ion-selective membrane electrode (ISE) 01/29/2024 15:58:28 0.98 Below low normal 1.13-1.32 (mmol/L) Final Anion gap, Whole Blood 01/29/2024 15:58:28 9.1 7.0-15.0 (mmol/L) Final Glucose, whole blood 01/29/2024 15:58:28 159 Above high normal 70-120 (mg/dL) Final Oxygen/Total gas setting [Volume Fraction] Ventilator 01/29/2024 15:58:28 50 (%) Final O2 FLOW, ARTERIAL - [facility] 01/29/2024 15:58:28 Not Provided (L/min) Final Bicarbonate, Venous, POC (i-STAT) 01/29/2024 15:58:28 22.5 Below low normal 23.0-31.0 (mmol/L) Final Performing Location [facility] [place] - Formerly named [facility] [address] [facility] [address]
--- OUTSIDE RECORDS SUMMARY | 2024-02-09 13:09 | External Medical Summary ---
Author Name Unknown Address Unknown Organization K01:[facility] [place] [address] [place] [address] Laboratory Report Ordering Provider Test Date Status DEE DEE PATEL 01/29/2024 18:56:59 Final 6 hours after surgery and af ter NOW BMP draw. Observation Date Value Abnormality Reference (Units ) Status BUN 01/29/2024 18:56:59 15 6-20 (mg/dL) Final Creatinine 01/29/2024 18:56:59 0.7 0.6-1.2 (mg/dL) Final Glomerular filtration rate/1.73 sq M.predicted [Volume Rate/Area] in Serum, Plasma or Blood by Creatinine-based formula (CKD-EPI) 01/29/2024 18:56:59 >90 >=60 (mL/min) Final eGFR is calculated based on the CKD-EPI 2020 equation Sodium 01/29/2024 18:56:59 143 135-146 (m mol/L) Final Potassium 01/29/2024 18:56:59 4.3 3.5-5.1 (m mol/L) Final Cl 01/29/2024 18:56:59 107 98-107 (mm ol/L) Final CO2 01/29/2024 18:56:59 26 22-32 (mmo l/L) Final Anion gap 01/29/2024 18:56:59 10 7-15 (mmol /L) Final Glucose 01/29/2024 18:56:59 142 Above high normal 70 -120 (mg/dL) Final Calcium 01/29/2024 18:56:59 8.4 8.4-10.2 ( mg/dL) Final Performing Location LABORATORY [facility] - [address] [place] [address]
--- OUTSIDE RECORDS SUMMARY | 2024-02-09 13:09 | External Medical Summary ---
Author Name Unknown Address Unknown Organization : Laboratory Report Ordering Provider Test Date Status IRASEMA NORMAN 01/30/2024 11:24:50 Final Observation Date Value Abnormality Reference (Units ) Status Glucose Point of Care 01/30/2024 11:24:50 169 Above high normal 70-120 (mg/dL) Final Performing Location
--- OUTSIDE RECORDS SUMMARY | 2024-02-09 13:10 | External Medical Summary ---
Author Name Unknown Address Unknown Organization K01:[facility] - [address] [place] [address] [place] [address] Laboratory Report Ordering Provider Test Date Status MARY JANE GOODSON 01/29/2024 12:33:20 Final Observation Date Value Abnormality Reference (Units ) Status SYNC LEUKOCYTES IN BLOOD BY AUTOMATED COUNT 01/29/2024 12:33:20 90.17 Above upper panic limits 4.00-10.80 (K/uL) Final Neutrophils/100 leukocytes in Blood by Manual count 01/29/2024 12:33:20 4.5 Below low normal 40.0-75.0 (%) Final Lymphocytes/100 leukocytes in Blood by Manual count 01/29/2024 12:33:20 93.0 Above high normal 18.0-42.0 (%) Final Known CLL.
Monocytes/100 leukocytes in Blood by Manual count 01/29/2024 12:33:20 2.5 1.0-11.0 (%) Final Neutrophils [#/volume] in Blood by Manual count 01/29/2024 12:33:20 4.06 1.80-7.70 (K/uL) Final Lymphocytes [#/volume] in Blood by Manual count 01/29/2024 12:33:20 83.86 Above high normal 1.00-4.80 (K/uL) Final Monocytes [#/volume] in Blood by Manual count 01/29/2024 12:33:20 2.25 Above high normal 0.00-1.10 (K/uL) Final Smudge cells [Presence] in Blood by Light microscopy 01/29/2024 12:33:20 Present Abnormal None Seen Final Performing Location [facility] - [address] [facility] [address]
--- OUTSIDE RECORDS SUMMARY | 2024-02-09 13:10 | External Medical Summary ---
Author Name Unknown Address Unknown Organization K01:[facility]ORY [facility] [place] [address] [place] [address] Laboratory Report Ordering Provider Test Date Status DEE DEE PATEL 01/29/2024 13:21:51 Final Observation Date Value Abnormality Reference (Units ) Status WBC, Total 01/29/2024 13:21:51 78.39 Above upper panic limits 4.00-10.80 (K/uL) Final RBC 01/29/2024 13:21:51 3.47 4.50-5.25 (M/uL) Final Hemoglobin 01/29/2024 13:21:51 10.9 Below low normal 14.0-16.8 (g/dL) Final HCT 01/29/2024 13:21:51 33.9 Below low normal 40.0-48.4 (%) Final MCV 01/29/2024 13:21:51 97.7 82.0-99.5 (fL) Final MCH 01/29/2024 13:21:51 31.4 27.0-34.0 (pg) Final MCHC 01/29/2024 13:21:51 32.2 32.0-36.0 (g/dL) Final RDW 01/29/2024 13:21:51 14.2 11.5-15.5 (%) Final Platelets 01/29/2024 13:21:51 102 Below low normal 140-400 (K/uL) Final MPV 01/29/2024 13:21:51 10.4 6.6-11.1 (fL) Final Nucleated erythrocytes/100 leukocytes [Ratio] in Blood by Automated count 01/29/2024 13:21:51 0 <=0 (/100 WBCs) Final Performing Location [facility]ORY [facility] [place] [address] [place] [address]
--- OUTSIDE RECORDS SUMMARY | 2024-02-09 13:10 | External Medical Summary ---
Author Name Unknown Address Unknown Organization : Laboratory Report Ordering Provider Test Date Status IRASEMA NORMAN 01/29/2024 13:16:56 Final Observation Date Value Abnormality Reference (Units) Status Blood draw [PhenX] 01/29/2024 13:16:56 Arterial Draw Final pH, POC (i-STAT) 01/29/2024 13:16:56 7.348 Below low normal 7.350-7.450 Final PCO2 POC (i-STAT) 01/29/2024 13:16:56 40.5 35.0-45.0 (mm Hg) Final PO2 POC (i-STAT) 01/29/2024 13:16:56 369 Above high normal 75-100 (mm Hg) Final Base excess standard in Arterial blood by calculation 01/29/2024 13:16:56 -3 Below low normal -2-2 (mmol/L) Final Bicarbonate, Venous, POC (i-STAT) 01/29/2024 13:16:56 22.3 Below low normal 23.0-31.0 (mmol/L) Final O2 Sat, calculated POC (i-STAT) 01/29/2024 13:16:56 100.0 Above high normal 94.0-98.0 (%) Final Glucose, whole blood 01/29/2024 13:16:56 198 Above high normal 70-120 (mg/dL) Final Potassium, Whole Blood 01/29/2024 13:16:56 3.9 3.5-5.1 (mmol/L) Final Sodium, Whole Blood 01/29/2024 13:16:56 139 135-146 (mmol/L) Final Calcium, Ionized, Whole Blood 01/29/2024 13:16:56 1.04 Below low normal 1.13-1.32 (mmol/L) Final Hemoglobin POC (i-STAT) 01/29/2024 13:16:56 10.9 Below low normal 14.0-16.8 (g/dL) Final HCT 01/29/2024 13:16:56 32 Below low normal 40-48 (%) Final Oxygen/Total gas setting [Volume Fraction] Ventilator 01/29/2024 13:16:56 100 (%) Final Performing Location
--- OUTSIDE RECORDS SUMMARY | 2024-02-09 13:10 | External Medical Summary ---
Author Name Unknown Address Unknown Organization K01:LABORATORY [place] - [address] [place] [address] Laboratory Report Ordering Provider Test Date Status AMANDA,BECK 01/29/2024 13:21:51 Final Observation Date Value Abnormality Reference (Units ) Status Heparin, unfractionated level 01/29/2024 13:21:51 <0.10 <0.10 (IU/mL) Final Unfractionated therapeutic r anges for Anti Xa activity:
For Cardiac/Neurologic treatment: 0.3 to 0.6 IU/mL.
For treatment of DVT or Pulmonary Embolism: 0.3 to 0.7 IU/mL. Performing Location LABORATORY [place] - [address] [place] [address]
--- OUTSIDE RECORDS SUMMARY | 2024-02-09 13:10 | External Medical Summary ---
Author Name Unknown Address Unknown Organization : Laboratory Report Ordering Provider Test Date Status IRASEMA NORMAN 01/29/2024 14:09:45 Final Observation Date Value Abnormality Reference (Units ) Status Glucose Point of Care 01/29/2024 14:09:45 175 Above high normal 70-120 (mg/dL) Final Performing Location
--- OUTSIDE RECORDS SUMMARY | 2024-02-09 13:10 | External Medical Summary ---
Author Name Unknown Address Unknown Organization K01:LABORATORY [facility] [place] [address] [place] [address] Laboratory Report Ordering Provider Test Date Status DEE DEE PATEL 01/29/2024 13:21:51 Final Observation Date Value Abnormality Reference (Units ) Status BUN 01/29/2024 13:21:51 13 6-20 (mg/dL) Final Creatinine 01/29/2024 13:21:51 0.6 0.6-1.2 (mg/dL) Final Glomerular filtration rate/1.73 sq M.predicted [Volume Rate/Area] in Serum, Plasma or Blood by Creatinine-based formula (CKD-EPI) 01/29/2024 13:21:51 >90 >=60 (mL/min) Final eGFR is calculated based on the CKD-EPI 2020 equation Sodium 01/29/2024 13:21:51 139 135-146 (m mol/L) Final Potassium 01/29/2024 13:21:51 4.2 3.5-5.1 (m mol/L) Final Cl 01/29/2024 13:21:51 103 98-107 (mm ol/L) Final CO2 01/29/2024 13:21:51 21 Below low normal 22- 32 (mmol/L) Final Anion gap 01/29/2024 13:21:51 15 7-15 (mmol /L) Final Glucose 01/29/2024 13:21:51 221 Above high normal 70 -120 (mg/dL) Final Calcium 01/29/2024 13:21:51 7.5 Below low normal 8.4 -10.2 (mg/dL) Final Performing Location LABORATORY [facility] [place] - [address] [place] [address]
--- OUTSIDE RECORDS SUMMARY | 2024-02-09 13:10 | External Medical Summary ---
Author Name Unknown Address Unknown Organization K01:[facility]ORY [facility] [place] [address] [place] [address] Laboratory Report Ordering Provider Test Date Status DEE DEE PATEL 01/29/2024 13:21:51 Final Observation Date Value Abnormality Reference (Units ) Status Antithrombin III 01/29/2024 13:21:51 61 Below low nor mal 80-120 (%) Final Performing Location [facility] - [address] [place] [address]
--- OUTSIDE RECORDS SUMMARY | 2024-02-09 13:10 | External Medical Summary ---
Author Name Unknown Address Unknown Organization K01:LABORATORY [facility] [place] [address] [place] [address] Laboratory Report Ordering Provider Test Date Status DEE DEE PATEL 01/29/2024 13:21:51 Final Observation Date Value Abnormality Reference (Units ) Status Clot formation [Time] in Blood by Thromboelastography 01/29/2024 13:21:51 4.2 2.5-8.3 (minutes) Final Clot strength in Blood by Thromboelastography 01/29/2024 13:21:51 2.2 0.5-3.7 (minutes) Final Clot angle in Blood by Thromboelastography 01/29/2024 13:21:51 62.4 46.8-78.4 (degrees) Final Maximum clot firmness [Length] in Blood by Thromboelastography 01/29/2024 13:21:51 53.8 50.6-72.5 (mm) Final Coagulation index in Blood b y Thromboelastography 01/29/2024 13:21:51 0.0 -3.0-3.0 Final Clot Lysis [Length fraction] in Blood by Thromboelastography --30 minutes post maximum clot amplitude 01/29/2024 13:21:51 0.0 0.0-7.5 (%) Final This is an appended report. These results have been appended to a previously preliminary verified report. Performing Location LABORATORY [facility] [place] - [address] [place] [address]
--- OUTSIDE RECORDS SUMMARY | 2024-02-09 13:10 | External Medical Summary ---
Author Name Unknown Address Unknown Organization K01:LABORATORY [facility] [place] - [address] [place] [address] Laboratory Report Ordering Provider Test Date Status DEE DEE PATEL 01/29/2024 13:21:51 Final Warfarin Therapy
INR: 2 .0-3.0 conventional anticoagulation
INR: 2.5- 3.5 high intensity anticoagulation Observation Date Value Abnormality Reference (Units ) Status PT 01/29/2024 13:21:51 16.4 Above high normal 11 .6-15.2 (seconds) Final INR 01/29/2024 13:21:51 1.3 Above high normal 0. 8-1.2 Final Performing Location LABORATORY [facility] [place] - [address] [place] [address]
--- OUTSIDE RECORDS SUMMARY | 2024-02-09 13:10 | External Medical Summary ---
Author Name Unknown Address Unknown Organization K01:[facility] - [address] [place] [address] Laboratory Report Ordering Provider Test Date Status DEE DEE PATEL 01/29/2024 13:21:51 Final Observation Date Value Abnormality Reference (Units ) Status Magnesium 01/29/2024 13:21:51 2.6 1.5-2.6 (m g/dL) Final Performing Location [facility] - [address] [place] [address]
--- OUTSIDE RECORDS SUMMARY | 2024-02-09 13:10 | External Medical Summary ---
Author Name Unknown Address Unknown Organization K01:LABORATORY [facility] [place] - [address] [place] [address] Laboratory Report Ordering Provider Test Date Status AMANDADEE DEE 01/29/2024 13:21:51 Final If R time > 20 minutes and n o clot formed suggesting hypocoagulable state or interfering substance (anticoagulation). Consider resubmitting a new sample and/or checking PT/INR, aPTT, fibrinogen, and platelet count. Observation Date Value Abnormality Reference (Units ) Status Clot formation [Time] in Blood by Thromboelastography 01/29/2024 13:21:51 4.0 2.5-8.3 (minutes) Final Clot strength in Blood by Thromboelastography 01/29/2024 13:21:51 2.2 0.5-3.7 (minutes) Final Clot angle in Blood by Thromboelastography 01/29/2024 13:21:51 64.0 46.8-78.4 (degrees) Final Maximum clot firmness [Length] in Blood by Thromboelastography 01/29/2024 13:21:51 56.8 50.6-72.5 (mm) Final Coagulation index in Blood b y Thromboelastography 01/29/2024 13:21:51 0.6 -3.0-3.0 Final Clot Lysis [Length fraction] in Blood by Thromboelastography --30 minutes post maximum clot amplitude 01/29/2024 13:21:51 0.0 0.0-7.5 (%) Final This is an appended report. These results have been appended to a previously preliminary verified report. Performing Location LABORATORY [facility] [place] - [address] [facility] [address]
--- OUTSIDE RECORDS SUMMARY | 2024-02-09 13:10 | External Medical Summary ---
Author Name Unknown Address Unknown Organization K01:LAB[facility]ATORY [facility] [place] - [address] [facility] [address] Laboratory Report Ordering Provider Test Date Status MARY JANE GOODSON 01/29/2024 12:33:20 Final If R time > 20 minutes and n o clot formed suggesting hypocoagulable state or interfering substance (anticoagulation). Consider resubmitting a new sample and/or checking PT/INR, aPTT, fibrinogen, and platelet count. Observation Date Value Abnormality Reference (Units ) Status Clot formation [Time] in Blood by Thromboelastography 01/29/2024 12:33:20 4.4 2.5-8.3 (minutes) Final Clot strength in Blood by Thromboelastography 01/29/2024 12:33:20 2.6 0.5-3.7 (minutes) Final Clot angle in Blood by Thromboelastography 01/29/2024 12:33:20 59.4 46.8-78.4 (degrees) Final Maximum clot firmness [Length] in Blood by Thromboelastography 01/29/2024 12:33:20 54.1 50.6-72.5 (mm) Final This is an appended report. These results have been appended to a previously preliminary verified report. Coagulation index in Blood b y Thromboelastography 01/29/2024 12:33:20 -0.5 -3.0-3.0 F inal This is an appended report. These results have been appended to a previously preliminary verified report. Clot Lysis [Length fraction] in Blood by Thromboelastography --30 minutes post maximum clot amplitude 01/29/2024 12:33:20 0.0 0.0-7.5 (%) Final This is an appended report. These results have been appended to a previously preliminary verified report. Performing Location [facility] - [address] [facility] [address]
--- OUTSIDE RECORDS SUMMARY | 2024-02-09 13:10 | External Medical Summary ---
Author Name Unknown Address Unknown Organization K01:LABORATORY [facility] [place] - [address] [place] [address] Laboratory Report Ordering Provider Test Date Status DEE DEE PATEL 01/29/2024 13:21:51 Final Stop Collection after Drew chu is removed Observation Date Value Abnormality Reference (Units ) Status Oxygen saturation in Venous blood 01/29/2024 13:21:51 67.3 40.0-85.0 (%) Final Performing Location [facility] - [address] [place] [address]
--- OUTSIDE RECORDS SUMMARY | 2024-02-09 13:10 | External Medical Summary ---
Author Name Unknown Address Unknown Organization K01:LABORATORY C - [address] [facility] [place] [address] Laboratory Report Ordering Provider Test Date Status DEE DEE PATEL 01/29/2024 14:51:30 Final Observation Date Value Abnormality Reference (Units ) Status Body temperature 01/29/2024 14:51:30 37.0 (C) Final pH of Arterial blood 01/29/2024 14:51:30 7.428 7.350-7.450 (units) Final Carbon dioxide [Partial pressure] in Arterial blood 01/29/2024 14:51:30 34.3 Below low normal 35.0-45.0 (mmHg) Final Oxygen [Partial pressure] in Arterial blood 01/29/2024 14:51:30 171.0 Above high normal 75.0-100.0 (mmHg) Final Base excess, Arterial 01/29/2024 14:51:30 -1.1 -2.0-2.0 (mmol/L) Final Hemoglobin [Mass/volume] in Blood by Oximetry 01/29/2024 14:51:30 10.5 Below low normal 14.0-16.8 (g/dL) Final Oxyhemoglobin, Arterial (FO2HB) 01/29/2024 14:51:30 97.7 94.0-99.0 (% total Hgb) Final Carboxyhemoglobin 01/29/2024 14:51:30 1.4 <=1.5 (% total Hgb) Final Smokers: 0-9.0 % Methemoglobin 01/29/2024 14:51:30 0.6 <=1.5 (% total Hgb) Final Deoxyhemoglobin/Hemog lobin.total in Arterial blood 01/29/2024 14:51:30 0.3 0.0-5.0 (% total Hgb) Final Oxygen content in Arterial blood 01/29/2024 14:51:30 14.7 Below low normal 15.0-24.0 (%vol) Final Potassium, Whole Blood 01/29/2024 14:51:30 3.3 Below low normal 3.5-5.1 (mmol/L) Final Sodium, Whole Blood 01/29/2024 14:51:30 140 135-146 (mmol/L) Final Chloride, Whole Blood 01/29/2024 14:51:30 110 Above high normal 98-107 (mmol/L) Final Calcium.ionized [Moles/volume] in Blood by Ion-selective membrane electrode (ISE) 01/29/2024 14:51:30 1.03 Below low normal 1.13-1.32 (mmol/L) Final Anion gap, Whole Blood 01/29/2024 14:51:30 7.7 7.0-15.0 (mmol/L) Final Glucose, whole blood 01/29/2024 14:51:30 180 Above high normal 70-120 (mg/dL) Final Oxygen/Total gas setting [Volume Fraction] Ventilator 01/29/2024 14:51:30 50 (%) Final O2 FLOW, ARTERIAL - [facility] 01/29/2024 14:51:30 Not Provided (L/min) Final Bicarbonate, Venous, POC (i-STAT) 01/29/2024 14:51:30 22.3 Below low normal 23.0-31.0 (mmol/L) Final Performing Location LABORATORY [facility] [place] [address] [facility] [id number]
--- OUTSIDE RECORDS SUMMARY | 2024-02-09 13:10 | External Medical Summary ---
Author Name Unknown Address Unknown Organization [id number]:LABORATORY [facility] [place] - [address] [place] [address] Laboratory Report Ordering Provider Test Date Status DEE DEE PATEL 01/29/2024 13:21:51 Final Anticoagulation may affect t esting. Refer to [employer] Test Catalog for a list of effects. Observation Date Value Abnormality Reference (Units ) Status aPTT panel - Platelet poor plasma 01/29/2024 13:21:51 42 Above high normal 21-38 (seconds) Final Performing Location LABORATORY C - [address] [place] [address]
--- OUTSIDE RECORDS SUMMARY | 2024-02-09 13:11 | External Medical Summary ---
Author Name Unknown Address Unknown Organization K01:LABORATORY C - [address] [facility] [address] [place] [address] Laboratory Report Ordering Provider Test Date Status KELLEEHINTON 01/29/2024 12:33:20 Final Observation Date Value Abnormality Reference (Units ) Status Body temperature 01/29/2024 12:33:20 37.0 (C) Final pH of Arterial blood 01/29/2024 12:33:20 7.309 Below low normal 7.350-7.450 (units) Final Carbon dioxide [Partial pressure] in Arterial blood 01/29/2024 12:33:20 45.2 Above high normal 35.0-45.0 (mmHg) Final Oxygen [Partial pressure] in Arterial blood 01/29/2024 12:33:20 154.0 Above high normal 75.0-100.0 (mmHg) Final Base excess, Arterial 01/29/2024 12:33:20 -3.7 Below low normal -2.0-2.0 (mmol/L) Final Hemoglobin [Mass/volume] in Blood by Oximetry 01/29/2024 12:33:20 10.9 Below low normal 14.0-16.8 (g/dL) Final Oxyhemoglobin, Arterial (FO2HB) 01/29/2024 12:33:20 96.3 94.0-99.0 (% total Hgb) Final Carboxyhemoglobin 01/29/2024 12:33:20 1.5 <=1.5 (% total Hgb) Final Smokers: 0-9.0 % Methemoglobin 01/29/2024 12:33:20 1.0 <=1.5 (% total Hgb) Final Deoxyhemoglobin/Hemog lobin.total in Arterial blood 01/29/2024 12:33:20 1.2 0.0-5.0 (% total Hgb) Final Oxygen content in Arterial blood 01/29/2024 12:33:20 15.1 15.0-24.0 (%vol) Final Oxygen/Total gas setting [Volume Fraction] Ventilator 01/29/2024 12:33:20 Not Provided (%) Final O2 FLOW, ARTERIAL - [facility] 01/29/2024 12:33:20 Not Provided (L/min) Final Bicarbonate, Venous, POC (i-STAT) 01/29/2024 12:33:20 22.0 Below low normal 23.0-31.0 (mmol/L) Final Performing Location LAB[facility]ATORY [facility] [place] [address] [facility] [address]
--- OUTSIDE RECORDS SUMMARY | 2024-02-09 13:11 | External Medical Summary ---
Author Name Unknown Address Unknown Organization : Laboratory Report Ordering Provider Test Date Status IRASEMA NORMAN 01/29/2024 09:49:35 Final NORMAL (NON-HEPARINIZED) 74- 137 SECONDS
HEPARINIZED 200+ SECONDS
CRITICAL GREATER THAN 1000 SECONDS
null Observation Date Value Abnormality Reference (Units ) Status Kaolin activated time [Units/volume] in Blood 01/29/2024 09:49:35 601 50-1000 (secs) Final Performing Location
--- OUTSIDE RECORDS SUMMARY | 2024-02-09 13:11 | External Medical Summary ---
Author Name Unknown Address Unknown Organization : Laboratory Report Ordering Provider Test Date Status IRASEMA NORMAN 01/29/2024 10:12:49 Final NORMAL (NON-HEPARINIZED) 74- 137 SECONDS
HEPARINIZED 200+ SECONDS
CRITICAL GREATER THAN 1000 SECONDS
null Observation Date Value Abnormality Reference (Units ) Status Kaolin activated time [Units/volume] in Blood 01/29/2024 10:12:49 369 50-1000 (secs) Final Performing Location
--- OUTSIDE RECORDS SUMMARY | 2024-02-09 13:11 | External Medical Summary ---
Author Name Unknown Address Unknown Organization : Laboratory Report Ordering Provider Test Date Status IRASEMA NORMAN 01/29/2024 08:28:15 Final Observation Date Value Abnormality Reference (Units) Status Blood draw [PhenX] 01/29/2024 08:28:15 Arterial Draw Final pH, POC (i-STAT) 01/29/2024 08:28:15 7.379 7.350-7.450 Final PCO2 POC (i-STAT) 01/29/2024 08:28:15 40.6 35.0-45.0 (mm Hg) Final PO2 POC (i-STAT) 01/29/2024 08:28:15 327 Above high normal 75-100 (mm Hg) Final Base excess standard in Arterial blood by calculation 01/29/2024 08:28:15 -1 -2-2 (mmol/L) Final Bicarbonate, Venous, POC (i-STAT) 01/29/2024 08:28:15 24.0 23.0-31.0 (mmol/L) Final O2 Sat, calculated POC (i-STAT) 01/29/2024 08:28:15 100.0 Above high normal 94.0-98.0 (%) Final Glucose, whole blood 01/29/2024 08:28:15 145 Above high normal 70-120 (mg/dL) Final Potassium, Whole Blood 01/29/2024 08:28:15 4.2 3.5-5.1 (mmol/L) Final Sodium, Whole Blood 01/29/2024 08:28:15 137 135-146 (mmol/L) Final Calcium, Ionized, Whole Blood 01/29/2024 08:28:15 1.18 1.13-1.32 (mmol/L) Final Hemoglobin POC (i-STAT) 01/29/2024 08:28:15 13.3 Below low normal 14.0-16.8 (g/dL) Final HCT 01/29/2024 08:28:15 39 Below low normal 40-48 (%) Final Performing Location
--- OUTSIDE RECORDS SUMMARY | 2024-02-09 13:11 | External Medical Summary ---
Author Name Unknown Address Unknown Organization : Laboratory Report Ordering Provider Test Date Status IRASEMA NORMAN 01/29/2024 11:23:27 Final NORMAL (NON-HEPARINIZED) 74- 137 SECONDS
HEPARINIZED 200+ SECONDS
CRITICAL GREATER THAN 1000 SECONDS
null Observation Date Value Abnormality Reference (Units ) Status Kaolin activated time [Units/volume] in Blood 01/29/2024 11:23:27 358 50-1000 (secs) Final Performing Location
--- OUTSIDE RECORDS SUMMARY | 2024-02-09 13:11 | External Medical Summary ---
Author Name Unknown Address Unknown Organization : Laboratory Report Ordering Provider Test Date Status IRASEMA NORMAN 01/29/2024 09:26:21 Final NORMAL (NON-HEPARINIZED) 74- 137 SECONDS
HEPARINIZED 200+ SECONDS
CRITICAL GREATER THAN 1000 SECONDS
null Observation Date Value Abnormality Reference (Units ) Status Kaolin activated time [Units/volume] in Blood 01/29/2024 09:26:21 888 50-1000 (secs) Final Performing Location
--- OUTSIDE RECORDS SUMMARY | 2024-02-09 13:11 | External Medical Summary ---
Author Name Unknown Address Unknown Organization : Laboratory Report Ordering Provider Test Date Status IRASEMA NORMAN 01/29/2024 11:42:20 Final NORMAL (NON-HEPARINIZED) 74- 137 SECONDS
HEPARINIZED 200+ SECONDS
CRITICAL GREATER THAN 1000 SECONDS
null Observation Date Value Abnormality Reference (Units ) Status Kaolin activated time [Units/volume] in Blood 01/29/2024 11:42:20 363 50-1000 (secs) Final Performing Location
--- OUTSIDE RECORDS SUMMARY | 2024-02-09 13:11 | External Medical Summary ---
Author Name Unknown Address Unknown Organization : Laboratory Report Ordering Provider Test Date Status IRASEMA NORMAN 01/29/2024 09:26:35 Final NORMAL (NON-HEPARINIZED) 74- 137 SECONDS
HEPARINIZED 200+ SECONDS
CRITICAL GREATER THAN 1000 SECONDS
null Observation Date Value Abnormality Reference (Units ) Status Kaolin activated time [Units/volume] in Blood 01/29/2024 09:26:35 839 50-1000 (secs) Final Performing Location
--- OUTSIDE RECORDS SUMMARY | 2024-02-09 13:11 | External Medical Summary ---
Author Name Unknown Address Unknown Organization K01:LAB[facility]ATORY [facility] - [address] [place] [address] Laboratory Report Ordering Provider Test Date Status IRASEMA NORMAN 01/29/2024 09:56:00 Final Observation Date Value Abnormality Reference (Units ) Status Platelets 01/29/2024 09:56:00 116 Below low normal 140 -400 (K/uL) Final Performing Location LABORATORY [facility] - [address] [place] [address]
--- OUTSIDE RECORDS SUMMARY | 2024-02-09 13:11 | External Medical Summary ---
Author Name Unknown Address Unknown Organization : Laboratory Report Ordering Provider Test Date Status IRASEMA NORMAN 01/29/2024 11:24:19 Final Observation Date Value Abnormality Reference (Units) Status Blood draw [PhenX] 01/29/2024 11:24:19 Arterial Draw Final pH, POC (i-STAT) 01/29/2024 11:24:19 7.380 7.350-7.450 Final PCO2 POC (i-STAT) 01/29/2024 11:24:19 36.9 35.0-45.0 (mm Hg) Final PO2 POC (i-STAT) 01/29/2024 11:24:19 227 Above high normal 75-100 (mm Hg) Final Base excess standard in Arterial blood by calculation 01/29/2024 11:24:19 -3 Below low normal -2-2 (mmol/L) Final Bicarbonate, Venous, POC (i-STAT) 01/29/2024 11:24:19 21.8 Below low normal 23.0-31.0 (mmol/L) Final O2 Sat, calculated POC (i-STAT) 01/29/2024 11:24:19 100.0 Above high normal 94.0-98.0 (%) Final Glucose, whole blood 01/29/2024 11:24:19 236 Above high normal 70-120 (mg/dL) Final Potassium, Whole Blood 01/29/2024 11:24:19 5.1 3.5-5.1 (mmol/L) Final Sodium, Whole Blood 01/29/2024 11:24:19 134 Below low normal 135-146 (mmol/L) Final Calcium, Ionized, Whole Blood 01/29/2024 11:24:19 1.01 Below low normal 1.13-1.32 (mmol/L) Final Hemoglobin POC (i-STAT) 01/29/2024 11:24:19 10.9 Below low normal 14.0-16.8 (g/dL) Final HCT 01/29/2024 11:24:19 32 Below low normal 40-48 (%) Final Performing Location
--- OUTSIDE RECORDS SUMMARY | 2024-02-09 13:11 | External Medical Summary ---
Author Name Unknown Address Unknown Organization : Laboratory Report Ordering Provider Test Date Status IRASEMA NORMAN 01/29/2024 10:31:27 Final NORMAL (NON-HEPARINIZED) 74- 137 SECONDS
HEPARINIZED 200+ SECONDS
CRITICAL GREATER THAN 1000 SECONDS
null Observation Date Value Abnormality Reference (Units ) Status Kaolin activated time [Units/volume] in Blood 01/29/2024 10:31:27 385 50-1000 (secs) Final Performing Location
--- OUTSIDE RECORDS SUMMARY | 2024-02-09 13:11 | External Medical Summary ---
Author Name Unknown Address Unknown Organization K01:LAB[facility]ATORY [facility] - [address] [facility] [address] [place] [place] [address] Laboratory Report Ordering Provider Test Date Status IRASEMA NORMAN 01/29/2024 09:56:00 Final Observation Date Value Abnormality Reference (Units ) Status Body temperature 01/29/2024 09:56:00 37.0 (C) Final pH of Arterial blood 01/29/2024 09:56:00 7.366 7.350-7.450 (units) Final Carbon dioxide [Partial pressure] in Arterial blood 01/29/2024 09:56:00 42.7 35.0-45.0 (mmHg) Final Oxygen [Partial pressure] in Arterial blood 01/29/2024 09:56:00 186.0 Above high normal 75.0-100.0 (mmHg) Final Base excess, Arterial 01/29/2024 09:56:00 -0.9 -2.0-2.0 (mmol/L) Final Hemoglobin [Mass/volume] in Blood by Oximetry 01/29/2024 09:56:00 9.5 Below low normal 14.0-16.8 (g/dL) Final Oxyhemoglobin, Arterial (FO2HB) 01/29/2024 09:56:00 98.0 94.0-99.0 (% total Hgb) Final Carboxyhemoglobin 01/29/2024 09:56:00 1.4 <=1.5 (% total Hgb) Final Smokers: 0-9.0 % Methemoglobin 01/29/2024 09:56:00 0.6 <=1.5 (% total Hgb) Final Deoxyhemoglobin/Hemog lobin.total in Arterial blood 01/29/2024 09:56:00 0.0 0.0-5.0 (% total Hgb) Final Oxygen content in Arterial blood 01/29/2024 09:56:00 13.5 Below low normal 15.0-24.0 (%vol) Final Oxygen/Total gas setting [Volume Fraction] Ventilator 01/29/2024 09:56:00 Not Provided (%) Final O2 FLOW, ARTERIAL - [facility] 01/29/2024 09:56:00 Not Provided (L/min) Final Bicarbonate, Venous, POC (i-STAT) 01/29/2024 09:56:00 23.8 23.0-31.0 (mmol/L) Final Performing Location LABORATORY [facility] [place] - [address] [facility] [id number]
--- OUTSIDE RECORDS SUMMARY | 2024-02-09 13:11 | External Medical Summary ---
Author Name Unknown Address Unknown Organization : Laboratory Report Ordering Provider Test Date Status IRASEMA NORMAN 01/29/2024 10:58:38 Final NORMAL (NON-HEPARINIZED) 74- 137 SECONDS
HEPARINIZED 200+ SECONDS
CRITICAL GREATER THAN 1000 SECONDS
null Observation Date Value Abnormality Reference (Units ) Status Kaolin activated time [Units/volume] in Blood 01/29/2024 10:58:38 509 50-1000 (secs) Final Performing Location
--- OUTSIDE RECORDS SUMMARY | 2024-02-09 13:11 | External Medical Summary ---
Author Name Unknown Address Unknown Organization K01:LABORATORY C - [address] [facility] [place] [address] Laboratory Report Ordering Provider Test Date Status IRASEMA NORMAN 01/29/2024 09:56:00 Final Observation Date Value Abnormality Reference (Units ) Status Body temperature 01/29/2024 09:56:00 37.0 (C) Final pH of Venous blood 01/29/2024 09:56:00 7.311 Below low normal 7.320-7.430 (units) Final Carbon dioxide [Partial pressure] in Venous blood 01/29/2024 09:56:00 52.9 40.0-60.0 (mmHg) Final Oxygen [Partial pressure] in Venous blood 01/29/2024 09:56:00 41.0 25.0-50.0 (mmHg) Final Base excess, Capillary 01/29/2024 09:56:00 -0.1 -2.0-2.0 (mmol/L) Final Hemoglobin [Mass/volume] in Blood by Oximetry 01/29/2024 09:56:00 9.5 Below low normal 14.0-16.8 (g/dL) Final Oxyhemoglobin, Venous (FO2HB) 01/29/2024 09:56:00 67.1 40.0-85.0 (% total Hgb) Final Carboxyhemoglobin 01/29/2024 09:56:00 1.4 <=1.5 (% total Hgb) Final Smokers: 0-9.0 % Methemoglobin 01/29/2024 09:56:00 0.6 <= 1.5 (% total Hgb) Final Deoxyhemoglobin/Hemoglo bin.total in Venous blood 01/29/2024 09:56:00 30.9 (% total Hgb) Final Oxygen content in Venous blood 01/29/2024 09:56:00 9.0 7.0-18.0 (%vol) Final Potassium, Whole Blood 01/29/2024 09:56:00 4.6 3.5-5.1 (mmol/L) Final Sodium, Whole Blood 01/29/2024 09:56:00 134 Below l ow normal 135-146 (mmol/L) Final Chloride, Whole Blood 01/29/2024 09:56:00 101 98-107 (mmol/L) Final Calcium.ionized [Moles/volume] in Blood by Ion-selective membrane electrode (ISE) 01/29/2024 09:56:00 1.04 Below low normal 1.13-1.32 (mmol/L) Final Anion gap, Whole Blood 01/29/2024 09:56:00 6.2 Belo w low normal 7.0-15.0 (mmol/L) Final Glucose, whole blood 01/29/2024 09:56:00 175 Above high normal 70-120 (mg/dL) Final Bicarbonate, Venous, POC (i-STAT) 01/29/2024 09:56:00 25.9 23.0-31.0 (mmol/L) Final Performing Location LABORATORY [facility] [place] - [address] [facility] [address]
--- OUTSIDE RECORDS SUMMARY | 2024-02-09 13:11 | External Medical Summary ---
Author Name Unknown Address Unknown Organization : Laboratory Report Ordering Provider Test Date Status IRASEMA NORMAN 01/29/2024 09:50:23 Final Observation Date Value Abnormality Reference (Units) Status Blood draw [PhenX] 01/29/2024 09:50:23 Arterial Draw Final pH, POC (i-STAT) 01/29/2024 09:50:23 7.339 Below low normal 7.350-7.450 Final PCO2 POC (i-STAT) 01/29/2024 09:50:23 47.0 Above high normal 35.0-45.0 (mm Hg) Final PO2 POC (i-STAT) 01/29/2024 09:50:23 188 Above high normal 75-100 (mm Hg) Final Base excess standard in Arterial blood by calculation 01/29/2024 09:50:23 -1 -2-2 (mmol/L) Final Bicarbonate, Venous, POC (i-STAT) 01/29/2024 09:50:23 25.3 23.0-31.0 (mmol/L) Final O2 Sat, calculated POC (i-STAT) 01/29/2024 09:50:23 100.0 Above high normal 94.0-98.0 (%) Final Glucose, whole blood 01/29/2024 09:50:23 151 Above high normal 70-120 (mg/dL) Final Potassium, Whole Blood 01/29/2024 09:50:23 4.5 3.5-5.1 (mmol/L) Final Sodium, Whole Blood 01/29/2024 09:50:23 136 135-146 (mmol/L) Final Calcium, Ionized, Whole Blood 01/29/2024 09:50:23 1.08 Below low normal 1.13-1.32 (mmol/L) Final Hemoglobin POC (i-STAT) 01/29/2024 09:50:23 11.6 Below low normal 14.0-16.8 (g/dL) Final HCT 01/29/2024 09:50:23 34 Below low normal 40-48 (%) Final Performing Location
--- OUTSIDE RECORDS SUMMARY | 2024-02-09 13:11 | External Medical Summary ---
Author Name Unknown Address Unknown Organization K01:[place]ATORY [facility] [place] [facility] [address] [place] [address] Laboratory Report Ordering Provider Test Date Status MARY JANE GOODSON 01/29/2024 12:33:20 Final Observation Date Value Abnormality Reference (Units ) Status WBC, Total 01/29/2024 12:33:20 90.17 Above upper panic limits 4.00-10.80 (K/uL) Final RBC 01/29/2024 12:33:20 3.37 4.50-5.25 (M/uL) Final Hemoglobin 01/29/2024 12:33:20 10.5 Below low normal 14.0-16.8 (g/dL) Final HCT 01/29/2024 12:33:20 33.5 Below low normal 40.0-48.4 (%) Final MCV 01/29/2024 12:33:20 99.4 82.0-99.5 (fL) Final MCH 01/29/2024 12:33:20 31.2 27.0-34.0 (pg) Final MCHC 01/29/2024 12:33:20 31.3 32.0-36.0 (g/dL) Final RDW 01/29/2024 12:33:20 14.3 11.5-15.5 (%) Final Platelets 01/29/2024 12:33:20 97 Below low normal 140-400 (K/uL) Final MPV 01/29/2024 12:33:20 10.2 6.6-11.1 (fL) Final Nucleated erythrocytes/100 leukocytes [Ratio] in Blood by Automated count 01/29/2024 12:33:20 0 <=0 (/100 WBCs) Final Performing Location [facility]ORY [facility] [place] - [address] [place] [address]
--- OUTSIDE RECORDS SUMMARY | 2024-02-09 13:11 | External Medical Summary ---
Author Name Unknown Address Unknown Organization K01:LABORATORY [facility] [place] - [address] [place] [address] Laboratory Report Ordering Provider Test Date Status MARY JANE GOODSON 01/29/2024 12:33:20 Final Observation Date Value Abnormality Reference (Units ) Status Fibrinogen 01/29/2024 12:33:20 180 178-467 ( mg/dL) Final Performing Location LABORATORY [facility] - [address] [place] [address]
--- OUTSIDE RECORDS SUMMARY | 2024-02-09 13:11 | External Medical Summary ---
Author Name Unknown Address Unknown Organization : Laboratory Report Ordering Provider Test Date Status IRASEMA NORMAN 01/29/2024 10:41:28 Final NORMAL (NON-HEPARINIZED) 74- 137 SECONDS
HEPARINIZED 200+ SECONDS
CRITICAL GREATER THAN 1000 SECONDS
null Observation Date Value Abnormality Reference (Units ) Status Kaolin activated time [Units/volume] in Blood 01/29/2024 10:41:28 428 50-1000 (secs) Final Performing Location
--- OUTSIDE RECORDS SUMMARY | 2024-02-09 13:11 | External Medical Summary ---
Author Name Unknown Address Unknown Organization K01:LABORATORY [facility] [place] [address] [place] [address] Laboratory Report Ordering Provider Test Date Status MARY JANE GOODSON 01/29/2024 12:33:20 Final Warfarin Therapy
INR: 2 .0-3.0 conventional anticoagulation
INR: 2.5- 3.5 high intensity anticoagulation Observation Date Value Abnormality Reference (Units ) Status PT 01/29/2024 12:33:20 17.6 Above high normal 11 .6-15.2 (seconds) Final INR 01/29/2024 12:33:20 1.4 Above high normal 0. 8-1.2 Final Performing Location LABORATORY [facility] [place] - [address] [place] [id number]
--- OUTSIDE RECORDS SUMMARY | 2024-02-09 13:11 | External Medical Summary ---
Author Name Unknown Address Unknown Organization : Laboratory Report Ordering Provider Test Date Status IRASEMA NORMAN 01/29/2024 12:25:00 Final Observation Date Value Abnormality Reference (Units) Status Blood draw [PhenX] 01/29/2024 12:25:00 Arterial Draw Final pH, POC (i-STAT) 01/29/2024 12:25:00 7.303 Below low normal 7.350-7.450 Final PCO2 POC (i-STAT) 01/29/2024 12:25:00 49.3 Above high normal 35.0-45.0 (mm Hg) Final PO2 POC (i-STAT) 01/29/2024 12:25:00 133 Above high normal 75-100 (mm Hg) Final Base excess standard in Arterial blood by calculation 01/29/2024 12:25:00 -2 -2-2 (mmol/L) Final Bicarbonate, Venous, POC (i-STAT) 01/29/2024 12:25:00 24.4 23.0-31.0 (mmol/L) Final O2 Sat, calculated POC (i-STAT) 01/29/2024 12:25:00 99.0 Above high normal 94.0-98.0 (%) Final Glucose, whole blood 01/29/2024 12:25:00 214 Above high normal 70-120 (mg/dL) Final Potassium, Whole Blood 01/29/2024 12:25:00 4.5 3.5-5.1 (mmol/L) Final Sodium, Whole Blood 01/29/2024 12:25:00 136 135-146 (mmol/L) Final Calcium, Ionized, Whole Blood 01/29/2024 12:25:00 1.10 Below low normal 1.13-1.32 (mmol/L) Final Hemoglobin POC (i-STAT) 01/29/2024 12:25:00 11.2 Below low normal 14.0-16.8 (g/dL) Final HCT 01/29/2024 12:25:00 33 Below low normal 40-48 (%) Final Performing Location
--- OUTSIDE RECORDS SUMMARY | 2024-02-09 13:11 | External Medical Summary ---
Author Name Unknown Address Unknown Organization K01:LABORATORY [facility] [place] - [address] [facility] [place] [address] Laboratory Report Ordering Provider Test Date Status EMERSONJENNIFERSIMON 01/29/2024 09:56:00 Final If R time > 20 minutes [...] platelet count. Observation Date Value Abnormality Reference (Units) Status Clot formation [Time] in Blood by Thromboelastography 01/29/2024 09:56:00 >20.0 Above high normal 2.5-8.3 (minutes) Final Performing Location LABORATORY [facility] [place] - [address] [place] [address]
--- OUTSIDE RECORDS SUMMARY | 2024-02-09 13:11 | External Medical Summary | Summary of Care ---
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 Name Role Phone Winston Luna MD Primary Care Provider [phone] Reason for Visit * Reason Comments Blood Management Program Encounter Details Date Type Department Care Team (Late st Contact Info) Description 01/27/2024 Documentation Patient Blood Management, [place] [address] [place] [address] Ibrahima Villa, JOSE Allergies Active Allergy Reactions Criticality Noted Date Comments Amoxicillin Nausea/vomiting Medium 06/30/2018 documented as of this encounter (statuses as of 01/27/2024) Medications Medication Sig Dispensed Refills Start Date End Date Status MULTI-VITAMIN DAILY PO TABS Take by mouth . Active Blood Glucose Monitoring Suppl (ONETOUCH ULTRA SYSTEM) w/Device KITIndications:Type 2 diabetes mellitus [...] Omeprazole 20 MG Oral Capsule Delayed Release (PriLOSEC)Indicatio ns:GERD (gastroesophageal reflux disease) TAKE 1 CAPSULE BY MOUTH ONCE DAILY. MAY TAKE AN ADDITIONAL DOSE DAILY FOR PERSISTENT HEARTBURN 90 Capsule 3 07/07/2023 Active OneTouch Verralph In Vitro Strip (Glucose Blood) Use once daily as directed, E11.9 100 Strip 3 09/02/2023 Active Rosuvastatin Calcium 20 MG Oral Tablet (Crestor)Indication s:Dyslipidemia, goal LDL below 100 TAKE 1 TABLET BY MOUTH EVERY MORNING 90 Tablet 3 09/05/2023 Active Fenofibrate 48 MG Oral Tablet (Tricor) TAKE 1 TABLET BY MOUTH EVERY MORNING 90 Tablet 09/18/2023 Active Additional Information Patient not taking.Reason: Other - Use Comments (not taking due to cost of medication), Reported on 11/06/2023 Dapagliflozin Propanediol 10 MG Oral Tablet (Farxiga)Indication s:Type 2 diabetes mellitus with hemoglobin A1c goal of less than 8.0% (HCC) Take 1 Tablet by mouth in the morning. Obtaining via PAP. 120 Tablet 2 10/08/2023 Active Ozempic (2 MG/DOSE) 8 MG/3ML Subcutaneous Solution Pen-injector (Semaglutide (2 MG/DOSE))Indication s:DM type 2 causing neurological disease (HCC) 10/22/2023 Active metFORMIN HCl 1000 MG Oral Tablet (Glucophage) TAKE 1 TABLET BY MOUTH TWICE DAILY every morning and at bedtime 180 Tablet 3 11/19/2023 Active Fluticasone Propionate 50 MCG/ACT Nasal Suspension (Flonase) Administer 2 Sprays into each nostril in the morning. 16 g 11/21/2023 Active Additional Information Patient not taking.Reported on 01/26/2024 Gabapentin 300 MG Oral Capsule (Neurontin)Indicati ons:DM type 2 causing neurological disease (HCC) TAKE 1 CAPSULE BY MOUTH TWICE DAILY 180 Capsule 3 12/09/2023 Active Additional Information Patient not taking.Reported on 12/15/2023 Repaglinide 2 MG Oral Tablet (Prandin) Take 2 Tablets by mouth every night at bedtime. Active Mupirocin Calcium 2 % Nasal Ointment (Bactroban Nasal) Administer into nostril 2 times a day. For 5 days 1 Each 01/22/2024 Active Chlorhexidine Gluconate 4 % External Liquid Use to wash in shower for 5 days leading up to surgery 120 mL 01/22/2024 Active Aspirin 81 MG Oral Tablet Delayed Release Take 1 Tablet by mouth in the morning. 01/15/2024 Active documented as of this encounter (statuses as of 01/27/2024) Active Problems Problem Noted Date Diagnosed Date Coronary artery disease of n ative artery of [place] heart with stable angina pectoris 01/21/2024 Immunosuppressed [...] as of this encounter (statuses as of 01/27/2024) Resolved Problems Problem Noted Date Diagnosed Date [...] as of this encounter (statuses as of 01/27/2024) Immunizations Name Administration Dates Next Due COVID-19 mRNA, LNP-s, No Pre serve, 2-Dose Series ([employer]) 03/04/2022,06/09/2021,11/14/2020,05/2021 COVID-19, MRNA-LNP, 23-24, P F, 30 MCG/0.3 mL, 12 YRS AND ABOVE, IM ([employer]) 07/21/2023 Covid-19, Mrna, Lnp-s, Pf, B ivalent, 30 Mcg, IM, 12 yrs and above ([employer]) 06/26/2022 Pneumococcal Conjugate Vacc, 13 Valent (Prevnar) [...] as of this encounter Progress Notes * Ibrahima Villa RN - 01/27/2024 9:31 AM EDT REFERRAL - Patient Blood Management Name: Pasha Castro Jr. REQUESTING SERVICE: [facility] REASON FOR REFERRAL: new evaluation outpatient, pre-surgery Latest Reference Range & Units 01/26/24 08:19 HGB 14.0 - 16.8 g/dL 13.8 (L) HCT 40.0 - 48.4 % 42.8 Iron 45 - 176 ug/dL 83 Iron Binding Capacity 250 - 425 ug/dL 291 Transferrin Saturation Percent 15 - 55 % 29 Ferritin 30 - 400 ng/mL 66 Immature Reticuloctye Fraction 2.5 - 20.6 % 18.7 Reticulocyte Hemoglobin 29.7 - 37.4 pg 34.2 (L): Data is abnormally low Chart reviewed. In absence of anemia or personal beliefs that prohibit blood transfusion would not recommend urgent therapy with iron, vitamins, or erythroid stimulating agents at this time. If no active hemorrhage, consider PRBC transfusion only for severe anemia and use a 1 unit PRBC dose followed by a repeat clinical assessment. For reversal of anticoagulation therapy, use Reversal of Anticoagulation order set. Please recommend outpatient follow up that includes repeat assessment of hemoglobin when stable fordischarge. Thank you for allowing Blood Management to participate in the care of this patient. documented in this encounter Plan of Treatment Upcoming Encounters Date Type Department Care Team (Latest Contact Info) Description 01/29/2024 7:00 AM EDT Hospital En[facility] [address] [place] [address] Aravind Rust MD [address] [place] [address] 01/29/2024 7:00 AM EDT Anesthesia Event OR [facility], OPERATING ROOM [facility], [facility] [address] [place] [facility] [phone] Wandy Falcon RN 01/29/2024 7:00 AM EDT - 01/29/2024 1:44 PM EDT Surgery OR [facility], OPERATING ROOM [facility], [facility] [address] [place] [phone] Aravind Rust MD [address] [place] [address] CORONARY ARTERY BYPASS GRAFT USING ARTERY 1 GRAFT 02/26/2024 11:00 AM EDT Office Visit Pharmacy, [place] [address] [place] [address] [facility] [address] [place] [address] 02/26/2024 11:20 AM EDT Office Visit [facility], [place] [address] [place] [phone] Winston Luna MD [address] [place] [address] 05/12/2024 9:50 AM EDT Laboratory Laboratory, [place] [address] [place] [address] [facility] [address], [place] [id number] 05/19/2024 10:30 AM EDT Office Visit Hematology/Oncolog y [facility] [place] [address] [place], [place] [phone] Estrella Bull MD [address] [place] [address] 07/23/2024 1:00 PM EST Office Visit Dermatology [place] Malini Macdonald [address] [facility] [place] [address] Tay Alejandra MD [address] [facility] [place] [address] Scheduled Procedures Name Priority Associated Diagnoses Date/Ti me CORONARY ARTERY BYPASS GRAFT USING ARTERY 1 GRAFT Nonrheumatic aortic valve stenosis Coronary artery disease of [place] artery of [place] heart with stable angina pectoris (HCC) 01/29/2024 7:00 AM EDT CORONARY ARTERY BYPASS GRAFT ARTERIAL AND VENOUS 2 GRAFTS Nonrheumatic aortic valve stenosis Coronary artery disease of [place] artery of [place] heart with stable angina pectoris (HCC) 01/29/2024 7:00 AM EDT ENDOSCOPY VIDEO ASSISTED HARVEST VEIN Nonrheumatic aortic valve stenosis Coronary artery disease of [place] artery of [place] heart with stable angina pectoris (HCC) 01/29/2024 7:00 AM EDT WITH REPLACEMENT AORTIC VALVE Nonrheumatic aortic valve stenosis Coronary artery disease of [place] artery of [place] heart with stable angina pectoris (HCC) 01/29/2024 7:00 AM EDT COLONOSCOPY FLEXIBLE PROXIMAL DIAGNOSTIC Recall History of [...] 08/25/2023, 04/08, 08/21/2021, Additional history exists GFR 01/25/2025 01/26/2024, 0509/2023, 11/24/2023, Additional history exists DTaP,Tdap,and Td Vaccines (3 [...] this encounter Medical Devices Implanted Type Area Maternity Floor Supervisor Device Identifier Shelf Expiration Date Model / Serial / Lot Mesh Plug Prefix [id number] [id number] - [id number] Implanted:Qty: 1 on 06/17/2016 by Nehemiah Guevara DO at OR [facility] Left: Groin CR BARD : DAVOL 04/07/2019 [id number] / / [id number] Prime Fenestrated Screw Implanted:Qty: 4 on 12/28/2020 by Nehemiah Neal III, MD at OR [facility] N/A: Back 12/28/2021 [id number] / / Prime Fenestrrated Screw Implanted:Qty: 6 on 12/28/2020 by Nehemiah Neal III, MD at OR [facility] N/A: Back 12/28/2021 [id number] / / Description:VIPER PRIME X TA B 7 X 50 MM TI Screw Set Sn Inner [id number] - [id number] Implanted:Qty: 10 on 12/28/2020 by Nehemiah Neal III, MD at OR [facility] N/A: Back JNJ : [employer] 12/28/2021 [id number] / / Roxi Implanted:Qty: 2 on 12/28/2020 by Nehemiah Neal III, MD at OR [facility] N/A: Back 12/28/2021 [id number] / / Description:VIPER2 STRAIGHT ROXI 20 MM COCR Patch Hernia Ventralex l - [id number] Implanted:Qty: 1 on 01/14/2023 by Kashif Deal MD at OR [facility] N/A: Abdomen CR BARD : DAVOL 07/05/2024 [id number] / / [id number] documented as of this encounter Advance Directives * Full Code (Latest Code Status on File) Date Activated Date Inactivated Comments 01/14/2023 7:30 [...] Directives occurred with: Not Discussed Care Teams Packing House Laborer Relationship Specialty Start Date End Date Winston Luna MD [address] [place] [address] PCP - General 07/08/1999 documented as of this encounter
--- OUTSIDE RECORDS SUMMARY | 2024-02-09 13:11 | External Medical Summary ---
Author Name Unknown Address Unknown Organization : Laboratory Report Ordering Provider Test Date Status IRASEMA NORMAN 01/29/2024 06:21:53 Final Observation Date Value Abnormality Reference (Units ) Status Glucose Point of Care 01/29/2024 06:21:53 136 Above high normal 70-120 (mg/dL) Final Performing Location
--- OUTSIDE RECORDS SUMMARY | 2024-02-09 13:11 | External Medical Summary | Summary of Care ---
Author Name Unknown Organization [facility] Address [address] [place] [address] Phone [phone] Care Team Providers Care Crayon Painter Name Role Phone Winston Luna MD Primary Care Provider [phone] Reason for Visit * Reason Onset Date Comments Pre-Op Testing 01/26/2024 Encounter Details Date Type Department Care Team (Late st Contact Info) Description 01/26/2024 9:00 AM EDT Pre-Admission Testing Pre Surgery Center, [facility] [address] [place] [address] [facility] [address] [place], [place] [id number] Pre-operative examination* Allergies Active Allergy Reactions Criticality Noted Date Comments Amoxicillin Nausea/vomiting Medium 06/30/2018 documented as of this encounter (statuses as of 01/27/2024) Medications Medication Sig Dispensed Refills Start Date End Date Status MULTI-VITAMIN DAILY PO TABS Take by mouth . Active Blood Glucose Monitoring Suppl (Radisys ULTRA SYSTEM) w/Device KITIndications:Type 2 diabetes mellitus with hemoglobin A1c goal of less than 8.0% (FORMERLY [facility]) Use as directed 4 times a day [...] artery disease of n ative artery of [place] heart with stable angina pectoris 01/21/2024 Immunosuppressed [...] mRNA, LNP-s, No Pre serve, 2-Dose Series (Uepaa) 03/04/2022,06/09/2021,11/14/2020,02/05/2021 COVID-19, MRNA-LNP, 23-24, P F, 30 MCG/0.3 mL, 12 YRS AND ABOVE, IM (Xpliant-Comirnat) 07/21/2023 Covid-19, Mrna, Lnp-s, Pf, B ivalent, [...] ,11/03/2019 05/03/2020 documented as of this encounter Anesthesia Record Procedure Summary Procedure Name Responsible Anesthesiologist Anesthesia Start Time Anesthesia Stop Time CORONARY ARTERY BYPASS GRAFT USING ARTERY 1 GRAFT Events No events on file. Meds * Agents No agents on file. * Blood No blood administrations on file. Lines, Drains, and Airways Type Details Placement Removal Alteration in Skin Integrity Placement Date: 12/28/20; Time: 1201; Wound Type: Surgical; Orientation/Laterality: Middle; Location: Back 12/28/20 1201 by Florian Leal RN Alteration in Skin Integrity Placement Date: 01/14/23; Wound Type: Surgical; Location: Umbilical 01/14/23 0000 by Marycruz Greenberg RN documented in this encounter Social History Tobacco Use Types [...] Sign Reading Time Taken Comments Blood Pressure 124/55 01/26/2024 7:44 AM EDT Pulse 76 01/26/2024 7:44 AM EDT Temperature 36.4 C (97.6 F) 01/26/2024 7:44 AM ED T Respiratory Rate 16 01/26/2024 7:44 AM EDT Oxygen Saturation 99% 01/26/2024 7:44 AM EDT Inhaled Oxygen Concentration - - Weight 108 kg (238 lb) 01/26/2024 7:44 AM EDT Height 174.6 cm (5' 8.75") 01/26/2024 7:44 AM ED T Body Mass Index 35.4 01/26/2024 7:44 AM EDT documented in this encounter Functional Status [...] No 12/27/2020 documented as of this encounter Patient Instructions * Patient Instructions* Wandy Falcon RN - 01/26/2024 7:44 AM EDT [facility]: Contact # [phone] Directions to Surgical Suite in from the Aneta Entrance The Surgical Waiting Room can be found in the [facility]. Enter through Main [facility] Entrance and the Waiting Room is directly in front of you. Proceed to check in and give them your name. Directions to Surgical Suite from the East Entrance Enter the East entrance and follow the hallway to the J elevator. Take the J elevator up to Level 1. Continue down the long hallway to the main [facility]. The Surgical Waiting Room will be on your Right. Proceed to check in and give them your Name. Directions to Surgical Suite from the Parking Garage Enter the [facility] lobby and proceed down the carmichael to the left. At the end of the carmichael, turn right. Continue down the long hallway to the main [facility]. The Surgical Waiting Room will be on your Right. Proceed to check in and give them your Name. THANK YOU FOR CHOOSING JENNIFER! PRE-OP PATIENT INFORMATION AND EDUCATION: -STOP taking your Farxiga 3 days prior to surgery. Please continue to carefully monitor your blood sugar levels at home after discontinuation of this agent and contact the prescriber to determine: 1)how to manage high blood sugar levels (hyperglycemia) and 2) if you need any bridging medication. You are prescribed Ozempic, a medication classified as a GLP-1 Agonist. This medication may be associated with delayed gastric emptying (delayed emptying of your stomach content into your intestine).Due to the delay in emptying your stomach you may experience symptoms such as abdominal discomfort/bloating, nausea and/or vomiting. These symptoms can increase your risks of potential complications associated with anesthesia. You will have the opportunity to discuss your symptoms the day of surgery when you will meet your anesthesia team and a plan of care is made. Please follow these recommendations based on whether you are experiencing symptoms or not to reducethe risk of potential complications associated with anesthesia: -You are taking a DAILY-dosed GLP-1 agonist, you will need to HOLD your dose the morning of your procedure AND follow a CLEAR LIQUID diet for 24 hours before your procedure. -You are taking a WEEKLY-dosed GLP-1 agonist HOLD your dose a minimum of 3 days prior to your procedure AND follow a CLEAR LIQUID diet for 24 hours before your procedure. INSTRUCTIONS FOR CLEAR LIQUID DIET 24 HOURS BEFORE YOUR PROCEDURE: -The day before your procedure you may eat a lite breakfast (e.g. toast, cereal), it is recommendedto eat your breakfast before 9:00 AM -The day before your procedure after eating breakfast, you MUST follow a clear liquid diet. A clearliquid diet includes water, soda, clear juices (without pulp), black coffee or tea (without milk/cream), jello (without anything added to it) and broth (without anything added to it). -The day of your procedure you may have clear liquids until 3 hours prior to your procedure's arrival time. MEDICATION INSTRUCTIONS: The day of surgery/procedure, you may TAKE the following medications with a sip of water up to 2 hours prior to your arrival time: Rosuvastatin. AVOID / DO NOT TAKE the following medications the evening prior to and morning of surgery/procedure: Metformin STOP taking the following medications the noted number of days prior to surgery/procedure unless otherwise specified by your surgeon: N/A. Please follow surgeon's instructions regarding use of aspirin, Coumadin, Plavix, Eliquis, and any other blood thinner including NSAIDs (non-steroidal anti- inflammatory drugs, eg, Advil, Ibuprofen, Motrin, Aleve, Naproxen). 10 days prior to surgery/procedure Stop all Herbal supplements, Green Tea, Turmeric, Melatonin, CBD, THC, etc. Stop all Vitamins (including Vitamin E) 24 hours prior to surgery/procedure DO NOT consume any alcohol. DO NOT use medical marijuana. DO NOT smoke or use tobacco products of any kind after midnight prior to surgery. *Using any of these products may increase your risks of procedural complications. IF IT IS LESS THAN RECOMMENDED STOPPAGE TIME PLEASE STOP AT TIME OF NOTIFICATION. FASTING RECOMMENDATIONS: To reduce risk, it is important for all elective surgery patients to follow the specific fasting guidelines listed below. DO NOT EAT after midnight on the night prior to your surgery date. You are allowed to drink clear liquids up to two hours prior to arrival time to the hospital or surgery center. Examples of clear liquids include water, clear fruit juice without pulp, clear carbonated beverages, clear tea, and black coffee. Any drinks given by your surgical service take as directed. THE DAY BEFORE YOUR SURGERY: -Drink plenty of fluid the day before your surgery. Contact your surgeon's office if you develop any of the following within 2 weeks of surgery: A cold Infection Fever Shingles Chicken pox or exposure to chicken pox Open areas such as scrapes, cuts, summers or other skin conditions Rashes GENERAL INSTRUCTIONS FOR PREPARING FOR SURGERY: BATHING INSTRUCTIONS: Bathe the evening prior to and the morning of surgery/procedure. Cleanse your body using ONLY anti-bacterial soap (eg, Dial, Safeguard) or any specific soap/cleansers and instructions provided by your surgeon (eg, Chlorhexidine). -You should brush your teeth the morning of surgery. Do NOT apply any lotions, powders, sprays, creams, oils, make-up, or deodorants after bathing. No hairspray, or nail lao on fingers or toes. Day of surgery/procedure do not use tampons. If you wear contacts wear your eyeglasses if available otherwise bring your contact supplies with you to remove them prior to your surgery/procedure. If you wear glasses or dentures, please bring cases in which you can store them during your surgery. Please remove all piercings and jewelry and leave them at home. Wear comfortable and loose clothing. -Please leave all valuables at home. -If you use a CPAP and are staying overnight, please bring your CPAP machine and mask and label it with your name. -If you use an assistive mobility device (walker, cane, etc), please label it with your name and bring to hospital. -An escort driver courier is required if you are being discharged the same day of the surgery. You should have a responsible adult over the age of 18 [address] drive you home. This person should be present with youin the hospital at the time of discharge and for the first 24 hours after the surgery to support your needs. If you are taking a taxi home, you must have your responsible green party accompany you in the taxi ride home at the time of discharge. OR times subject to change. Please check voicemail messages the day/evening before your surgery forany updates. PRE-OP: You will be taken to the pre-op area where your vital signs (blood pressure, pulse and temperature)will be taken. Any preparations that need to be done will be done there. When it is time for your surgery, you will be taken to the operating room. PARENTS OF PEDIATRIC PATIENTS WILL BE ALLOWED TO STAY WITH THEIR CHILDREN UNTIL THEY ARE ESCORTED TO THE OPERATING ROOM OUTPATIENT SURGERY PATIENTS: After your surgery you will be taken to the Same Day Surgery Unit when you are awake and will go home from there. You will get instructions about your home care before you leave. Arrange to have someone drive you home from the hospital. You may not drive for 24 hours after anesthesia. You must havean adult stay with you at home for 24 hours after your operation. This is very important. If you are not able to comply with these guidelines, your Short Stay surgery cannot be done. ADMISSION PATIENTS: After your stay in the recovery area, you will be taken to your room. Your family may visit you in your room based on current visitation policy. If a next day discharge is expected, it is important to make arrangements for a driver courier to take you home. Please be aware our visitation policies are subject to change Professionals, attendants, caregivers or family members are allowable visitors for patients with intellectual, developmental or cognitive disabilities, communication barriers or behavioral concerns. Because patients' and families' needs vary, they will be taken into account when applying visitation restrictions. ANESTHESIA INFORMATION This information has been prepared to help you and your family better understand the process of anesthesia, so that you may help make well-informed decisions about your care. This information is alsoprovided to guide your completion of the [facility] anesthesia consent form which addresses real, but infrequent, problems associated with anesthesia. IMPORTANT INFORMATION TO PREVENT YOUR SURGERY FROM BEING CANCELLED/ RESCHEDULED: --You are required to have a driver courier to take you home whether you are admitted to the hospital following your surgery or not --You are required to have a responsible adult with you for the first 24 hours after surgery to support your needs Types of Anesthesia: Local Anesthesia Local anesthetic drugs (numbing drugs) are usually injected into the tissues to numb just the specific location of your body requiring minor surgery, such as an area of your hand or foot. Regional Anesthesia -Regional anesthesia involves the use of local anesthetics (numbing drugs) to numb larger areas of your body by blocking nerves to those areas. This is commonly referred to as a nerve block. Another way of performing regional anesthesia is by blocking nerves of the spinal cord by injecting numbing m edicines with great exactness around those nerves. This is called spinal or epidural anesthesia depending on exactly where the medication is injected. The type of regional anesthesia selected dependson the type of surgery and whether regional anesthesia is being done to help with pain after surgery or as a part of the anesthesia for surgery. You may remain awake, be sedated, or be given a general anesthetic depending on the type of surgery and the type of regional anesthesia performed Monitored Anesthesia Care (MAC) -Describes a range of sedation that can be given to a patient undergoing a procedure. The level of sedation usually depends on what is needed for the procedure being performed. A patient could be awake and aware of the procedure being performed but be relaxed and able to follow instructions as needed or may be unaware of what is happening and only rouse to significant stimulation. A patient may be able to speak, hear things around them, and answer questions and follow commands but is not in pain or anxious. A patient may experience varying depths of sedation during the procedure. The use of general anesthesia could result if this type of anesthesia is ineffective. General Anesthesia - Occurs by using a combination of medications to put a patient into a deep, sleep-like, unresponsive state for surgery. This is required for many surgical procedures. Under general anesthesia, a patient does not feel pain and is unaware of what is happening during the procedure. Systems in the body may not function normally while a patient is under general anesthesia. They are monitored by the anesthesia provider and may need to be assisted while a patient is under general anesthesia. For example, a breathing device may need to be placed in the airway to assist breathing and medications may need to be given to ensure that your blood pressure and heart rate remain normal. Risks of Anesthesia: Regional/Local/Nerve Blocks -Include but are not limited to, , cardiac or respiratory arrest, permanent complete paralysis, permanent nerve injury, seizure, spinal headache, backache, pain in buttocks and legs, infection, bleeding, leakage of spinal fluid, inadequate pain relief, bowel or bladder dysfunction, prolonged numbness or pain, temporary drop in blood pressure, or allergic reaction to the medications. Monitored Anesthesia Care (MAC) -Common risks include temporary dizziness, light-headedness, nausea and/or vomiting, and leakage ofintravenous fluid into the tissues with swelling or discoloration of the area or residual pain. Less common risks include, but are not limited to, , heart attack, permanent brain damage, stroke,pneumonia, blood clots, awareness, nerve stretch injury of your arm, neck or leg, permanent liver damage and allergic reaction to the medications. General Anesthesia -More common risks include temporary sore throat, pain in the neck or other muscles, dizziness, light-headedness, nausea and/or vomiting, and leakage of intravenous fluid into the tissues with swelling or discoloration of the area or residual pain. Less common risks include, but are not limited to,, heart attack, permanent brain damage, stroke, pneumonia, blood clots, irritation of the cornea of your eye, vision loss, loosened or broken teeth, or other oral injuries, awareness, nerve stretch injury of the arm, neck or leg, hoarseness, laryngospasm, permanent liver damage and allergic reaction to the medications. History of anesthesia complications: If you or a family member have had a complication related to anesthesia such as difficulty with placement of a breathing tube or a serious reaction to a medication administered for anesthesia, pleasetell your anesthesia provider. Having this information will help keep you safe while under anesthesia Nausea: A common side effect of anesthesia is nausea, but some patients do experience both nausea and vomiting. If you have experienced nausea or vomiting after anesthesia in the past, be sure to tell your anesthesia provider so medication can be given to help prevent it from happening again. Patient safety/consenting process: All surgical procedures and anesthetics have some small risks. They are dependent upon many factorsincluding the type of surgery and your medical condition. That is why it is important to know aboutany underlying medical problems, how they are treated and how they can be managed to reduce the risks of anesthesia and surgery. Thus, it is important for your anesthesia provider to ask detailed questions about your medical history, and to know what prescription medications you are taking, including dosages and schedules, as well as any over the counter or herbal medicines and supplements. You must notify the doctor of any of the following: -if you are or possibly -if you have any sensitivity to medications -present mental and physical condition -if recently consumed alcohol or non-clear liquids -if you are presently on psychiatric mood-altering drugs or other medications If you are a female of child-bearing age and you use any form of hormone-based contraception, please continue to use it and, in addition, use an alternative form of contraception, such as condoms andspermicide for a month after discharge from the hospital. This is because during the hospitalization you might receive one or more medications that may render hormone-based contraceptives ineffective for several days or weeks. The affected contraceptives include, but are not limited to, the usual contraceptive pills, most types of intrauterine devices, Depo-Provera shots, hormonal patches, and hormonal vaginal rings. If you are not sure, contact your primary care physician, your ice resurfacing machine operators, or your surgeon to check if this warning applies to you. You may need to have invasive monitoring, which includes the insertion of catheters into your veinsand arteries. This is done to measure pressures, to take blood samples, and may be used in emergentsituations for intravenous access. This monitoring has risks including, but not limited to, injury to your arteries, lung collapse, bleeding, nerve injury as well as the risks related to anesthesia. An esophageal probe may be used to monitor your heart, this monitor has risks which include sore throat, hoarseness, difficulty with swallowing, loosened or broken teeth and esophageal injury. Major complications are rare but could include , respiratory distress, an abnormal heartbeat, infection, and bleeding. As part of the consent to administer anesthesia authorization you will discuss the following with the anesthesia doctor and his/her associates: -your present condition and diagnosis as it pertains to anesthesia or sedation administration -a description of the proposed anesthetic/sedation technique or procedure to be used -significant risks and benefits of the proposed anesthetic/sedation technique or procedure -any applicable alternatives, including their risks and benefits -if applicable, use of back-up method of contraception for 30 days after discharge -if applicable, the option of having no treatment and the potential results of this -if your procedure is in an outpatient surgery setting-the risk associated with having this procedure in this type of setting should be discussed as well as the potential need for transfer to the hospital if necessary Please be sure to have all questions that you have answered prior to signing the consent to administer anesthesia. You can make your care safer by being an active, informed patient. It is important that you are involved in your health care. Being a good patient does not mean being a silent one. If you have questions, problems, safety concerns or unmet needs, please let us know if you would like further clarification of the "Patient Rights and Responsibilities" as they pertain to you, or would like more information regarding our complaint and for grievance process, please call the site where you receive care and request to speak withthe patient advocate line. documented in this encounter Progress Notes * Wandy Falcon RN - 01/26/2024 7:44 AM EDT ~SEE ANESTHESIA EVENT FOR PRE-OP ANESTHESIA ASSESSMENT~ ~~~~~~~~~~~~~~~~~~~~~~~~~~~~~~~~~~~~~~~~~~~~~~~~~~~~ Patient identified by name/birthdate Optime case procedure confirmed with surgical consent Laterality confirmed as N/a Surgery date at time of Pre-Surgery Center Encounter: 01/29/2024. What procedure is patient having? CABG, AVR (bio), 3hrs, EVH & BUFFY Anesthesia Consent pool notified: N/A In an emergency, is patient willing to accept blood products or blood transfusion? Yes. Does Blood Bank order need placed? No. Anesthesia evaluation requested per case documentation. No Preop Eval Requested? No PATIENT EDUCATION SCREENING Education Screening: Patient and Spouse Preoperative bathing instructions were reviewed with patient. Motivation Level: Asks Questions and Eager to Learn Language Barrier: No Physical Barrier: N/A Patient Preferred Learning Methods: Reading and Lecture LEARNING NEED: Printed Patient Education Given: Preop Information: Adult Persons present for education: Patient and Spouse METHOD: One to One and Handout OUTCOME: State / Describe / Explain and Needs Reinforcement PATIENT INSTRUCTIONS GIVEN: General Preoperative Instructions Reviewed Medication Instructions Reviewed NPO Instructions Reviewed Verbalizes understanding of education: Yes - If your normal morning routine take Rosuvastatin the morning of surgery. If you take metformin, hold it the evening before surgery as well. No tobacco products after midnight. -STOP taking your Farxiga 3 days prior to surgery. Please continue to carefully monitor your blood sugar levels at home after discontinuation of this agent and contact the prescriber to determine: 1)how to manage high blood sugar levels (hyperglycemia) and 2) if you need any bridging medication. You are prescribed Ozempic, a medication classified as a GLP-1 Agonist. This medication may be associated with delayed gastric emptying (delayed emptying of your stomach content into your intestine).Due to the delay in emptying your stomach you may experience symptoms such as abdominal discomfort/bloating, nausea and/or vomiting. These symptoms can increase your risks of potential complications associated with anesthesia. You will have the opportunity to discuss your symptoms the day of surgery when you will meet your anesthesia team and a plan of care is made. Please follow these recommendations based on whether you are experiencing symptoms or not to reducethe risk of potential complications associated with anesthesia: -You are taking a DAILY-dosed GLP-1 agonist, you will need to HOLD your dose the morning of your procedure AND follow a CLEAR LIQUID diet for 24 hours before your procedure. -You are taking a WEEKLY-dosed GLP-1 agonist HOLD your dose a minimum of 3 days prior to your procedure AND follow a CLEAR LIQUID diet for 24 hours before your procedure. INSTRUCTIONS FOR CLEAR LIQUID DIET 24 HOURS BEFORE YOUR PROCEDURE: -The day before your procedure you may eat a lite breakfast (e.g. toast, cereal), it is recommendedto eat your breakfast before 9:00 AM -The day before your procedure after eating breakfast, you MUST follow a clear liquid diet. A clearliquid diet includes water, soda, clear juices (without pulp), black coffee or tea (without milk/cream), jello (without anything added to it) and broth (without anything added to it). -The day of your procedure you may have clear liquids until 3 hours prior to your procedure's arrival time. Pt states he's not holding his low dose ASA. Pre-Anesthesia Review of Systems, Health History and Education completed Signature: Wandy Falcon RN 01/26/2024 documented in this encounter Nursing Notes * Wandy Falcon RN - 01/26/2024 8:13 AM EDT ~SEE ANESTHESIA EVENT FOR PRE-OP ANESTHESIA ASSESSMENT~ ~~~~~~~~~~~~~~~~~~~~~~~~~~~~~~~~~~~~~~~~~~~~~~~~~~~~ Patient identified by name/birthdate Optime case procedure confirmed with surgical consent Laterality confirmed as N/a Surgery date at time of Pre-Surgery Center Encounter: 01/29/2024. What procedure is patient having? CABG, AVR (bio), 3hrs, EVH & BUFFY Anesthesia Consent pool notified: N/A In an emergency, is patient willing to accept blood products or blood transfusion? Yes. Does Blood Bank order need placed? No. Anesthesia evaluation requested per case documentation. No Preop Eval Requested? No PATIENT EDUCATION SCREENING Education Screening: Patient and Spouse Preoperative bathing instructions were reviewed with patient. Motivation Level: Asks Questions and Eager to Learn Language Barrier: No Physical Barrier: N/A Patient Preferred Learning Methods: Reading and Lecture LEARNING NEED: Printed Patient Education Given: Preop Information: Adult Persons present for education: Patient and Spouse METHOD: One to One and Handout OUTCOME: State / Describe / Explain and Needs Reinforcement PATIENT INSTRUCTIONS GIVEN: General Preoperative Instructions Reviewed Medication Instructions Reviewed NPO Instructions Reviewed Verbalizes understanding of education: Yes - If your normal morning routine take Rosuvastatin the morning of surgery. If you take metformin, hold it the evening before surgery as well. No tobacco products after midnight. -STOP taking your Farxiga 3 days prior to surgery. Please continue to carefully monitor your blood sugar levels at home after discontinuation of this agent and contact the prescriber to determine: 1)how to manage high blood sugar levels (hyperglycemia) and 2) if you need any bridging medication. You are prescribed Ozempic, a medication classified as a GLP-1 Agonist. This medication may be associated with delayed gastric emptying (delayed emptying of your stomach content into your intestine).Due to the delay in emptying your stomach you may experience symptoms such as abdominal discomfort/bloating, nausea and/or vomiting. These symptoms can increase your risks of potential complications associated with anesthesia. You will have the opportunity to discuss your symptoms the day of surgery when you will meet your anesthesia team and a plan of care is made. Please follow these recommendations based on whether you are experiencing symptoms or not to reducethe risk of potential complications associated with anesthesia: -You are taking a DAILY-dosed GLP-1 agonist, you will need to HOLD your dose the morning of your procedure AND follow a CLEAR LIQUID diet for 24 hours before your procedure. -You are taking a WEEKLY-dosed GLP-1 agonist HOLD your dose a minimum of 3 days prior to your procedure AND follow a CLEAR LIQUID diet for 24 hours before your procedure. INSTRUCTIONS FOR CLEAR LIQUID DIET 24 HOURS BEFORE YOUR PROCEDURE: -The day before your procedure you may eat a lite breakfast (e.g. toast, cereal), it is recommendedto eat your breakfast before 9:00 AM -The day before your procedure after eating breakfast, you MUST follow a clear liquid diet. A clearliquid diet includes water, soda, clear juices (without pulp), black coffee or tea (without milk/cream), jello (without anything added to it) and broth (without anything added to it). -The day of your procedure you may have clear liquids until 3 hours prior to your procedure's arrival time. Pt states he's not holding his low dose ASA. Pre-Anesthesia Review of Systems, Health History and Education completed Signature: Wandy Falcon RN 01/26/2024 documented in this encounter Plan of Treatment Upcoming Encounters Date Type Department Care Team (Latest Contact Info) Description 01/29/2024 7:00 AM EDT Hospital Encounter OR C, [facility] [address] [place] [address] Aravind Rust MD [address] [place] [address] 01/29/2024 7:00 AM EDT Anesthesia Event [place] [facility] [address] [place] [facility] [place] [address] Wandy Falcon RN 01/29/2024 7:00 AM EDT - 01/29/2024 1:44 PM EDT Surgery [place] [facility] [address] [place] [address] Aravind Rsut MD [address] [place] [address] CORONARY ARTERY BYPASS GRAFT USING ARTERY 1 GRAFT 02/26/2024 11:00 AM EDT Office Visit Pharmacy, [address] [facility] [address] [place] [address] 02/26/2024 11:20 AM EDT Office Visit [facility], [address] [place] [facility] [place] [address] Winston Luna MD [address] [place] [address] 05/12/2024 9:50 AM EDT Laboratory Laboratory, [address] [place] [address] [facility] [address] [place] [address] 05/19/2024 10:30 AM EDT Office Visit Hematology/Oncolog y [facility] [place] [address] [place] [phone] Estrella Bull MD [address] [facility] [place] [address] 07/23/2024 1:00 PM EST Office Visit Dermatology [facility] [address] [place] [address] Tay Alejandra MD [address] [facility] [place] [address] Scheduled Procedures Name Priority Associated Diagnoses Date/Ti wv CORONARY ARTERY BYPASS GRAFT USING ARTERY 1 GRAFT 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 ([facility]) 01/29/2024 7:00 AM EDT CORONARY ARTERY BYPASS GRAFT ARTERIAL AND VENOUS 2 GRAFTS 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 ([facility]) 01/29/2024 7:00 AM EDT ENDOSCOPY VIDEO ASSISTED HARVEST VEIN 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 ([facility]) 01/29/2024 7:00 AM EDT WITH REPLACEMENT AORTIC VALVE 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 (HCC) 01/29/2024 [...] this encounter Medical Devices Implanted Type Area Jacquard Loom Carpet Weaver Device Identifier Shelf Expiration Date Model / Serial / Lot Mesh Plug Prefix [id number] [id number] - [id number] Implanted:Qty: 1 on 06/17/2016 by Nehemiah Guevara DO at OR [facility] Left: Groin CR BARD : DAVOL 04/07/2019 [id number] / / [id number] Prime Fenestrated Screw Implanted:Qty: 4 on 12/28/2020 by Nehemiah Neal III, MD at OR [facility] N/A: Back 12/28/2021 [id number] / / Prime Fenestrrated Screw Implanted:Qty: 6 on 12/28/2020 by Nehemiah Neal III, MD at OR [facility] N/A: Back 12/28/2021 [id number] / / Description:VIPER PRIME X TA B 7 X 50 MM TI Screw Set Sng Inner [id number] - [id number] Implanted:Qty: 10 on 12/28/2020 by Nehemiah Neal III, MD at OR [facility] N/A: Back JNJ : [employer] 12/28/2021 [id number] / / Roxi Implanted:Qty: 2 on 12/28/2020 by Nehemiah Neal III, MD at OR [facility] N/A: Back 12/28/2021 [id number] / / Description:VIPER2 STRAIGHT ROXI 20 MM COCR Patch Hernia Ventralex [facility] - [id number] Implanted:Qty: 1 on 01/14/2023 by Kashif Deal MD at OR [facility] N/A: Abdomen CR BARD : DAVOL 07/05/2024 [id number] / / [id number] documented as of this encounter Visit Diagnoses Diagnosis Coronary artery disease of [place] artery of [place] heart with stable angina pectoris (HCC)- Primary Coronary artery disease of [place] artery of [place] heart with stable angina pectoris (HCC) Nonrheumatic aortic valve stenosis Aortic valve disorders Pre-operative examination- Primary Preoperative examination, unspecified Nonrheumatic aortic valve stenosis Aortic valve disorders Coronary artery disease of [place] artery of [place] heart with stable angina pectoris (HCC) documented in this encounter Advance Directives * [...] Directives occurred with: Not Discussed Care Teams Crayon Painter Relationship Specialty Start Date End Date Winston Luna MD [address] [place] [address] PCP - General 07/08/1999 documented as of this encounter
--- OUTSIDE RECORDS SUMMARY | 2024-02-09 13:11 | External Medical Summary ---
Author Name Unknown Address Unknown Organization K01:[facility] [place] [address] [place] [address] Laboratory Report Ordering Provider Test Date Status IRASEMA NORMAN 01/29/2024 09:56:00 Final Observation Date Value Abnormality Reference (Units ) Status Clot formation [Time] in Blood by Thromboelastography 01/29/2024 09:56:00 7.4 2.5-8.3 (minutes) Final Clot strength in Blood by Thromboelastography 01/29/2024 09:56:00 2.6 0.5-3.7 (minutes) Final Clot angle in Blood by Thromboelastography 01/29/2024 09:56:00 55.9 46.8-78.4 (degrees) Final Maximum clot firmness [Length] in Blood by Thromboelastography 01/29/2024 09:56:00 53.2 50.6-72.5 (mm) Final Coagulation index in Blood b y Thromboelastography 01/29/2024 09:56:00 -2.8 -3.0-3.0 Final Clot Lysis [Length fraction] in Blood by Thromboelastography --30 minutes post maximum clot amplitude 01/29/2024 09:56:00 0.0 0.0-7.5 (%) Final This is an appended report. These results have been appended to a previously preliminary verified report. Performing Location [facility] [address] [place] [address]
--- OUTSIDE RECORDS SUMMARY | 2024-02-09 13:11 | External Medical Summary ---
Author Name Unknown Address Unknown Organization K01:[facility] [address] [place] [address] Laboratory Report Ordering Provider Test Date Status IRASEMA NORMAN 01/29/2024 09:56:00 Final Observation Date Value Abnormality Reference (Units ) Status Fibrinogen 01/29/2024 09:56:00 183 178-467 ( mg/dL) Final Performing Location [facility] - [address] [place] [address]
--- OUTSIDE RECORDS SUMMARY | 2024-02-09 13:11 | External Medical Summary ---
Author Name Unknown Address Unknown Organization : Laboratory Report Ordering Provider Test Date Status IRSAEMA NORMAN 01/29/2024 08:27:09 Final NORMAL (NON-HEPARINIZED) 74- 137 SECONDS
HEPARINIZED 200+ SECONDS
CRITICAL GREATER THAN 1000 SECONDS
null Observation Date Value Abnormality Reference (Units ) Status Kaolin activated time [Units/volume] in Blood 01/29/2024 08:27:09 141 50-1000 (secs) Final Performing Location
--- OUTSIDE RECORDS SUMMARY | 2024-02-09 13:11 | External Medical Summary ---
Author Name Unknown Address Unknown Organization : Laboratory Report Ordering Provider Test Date Status IRASEMA NORMAN 01/29/2024 12:19:57 Final NORMAL (NON-HEPARINIZED) 74- 137 SECONDS
HEPARINIZED 200+ SECONDS
CRITICAL GREATER THAN 1000 SECONDS
null Observation Date Value Abnormality Reference (Units ) Status Kaolin activated time [Units/volume] in Blood 01/29/2024 12:19:57 120 50-1000 (secs) Final Performing Location
--- OUTSIDE RECORDS SUMMARY | 2024-02-09 13:12 | External Medical Summary | Summary of Care ---
Author Name Unknown Organization [facility] Address [address] [facility] [place] [address] Phone [phone] Care Team Providers Care Planetarium Technician Name Role Phone Winston Luna MD Primary Care Provider [phone] Reason for Visit * Reason Onset Date Comments Pre-Op Testing 01/26/2024 Encounter Details Date Type Department Care Team (Late st Contact Info) Description 01/26/2024 9:00 AM EDT Pre-Admission Testing Pre Surgery Center, [facility] [address] [place] [address] [facility] [address] [place], [place] [id number] Pre-operative examination* Allergies Active Allergy Reactions Criticality Noted Date Comments Amoxicillin Nausea/vomiting Medium 06/30/2018 documented as of this encounter (statuses as of 01/26/2024) Medications Medication Sig Dispensed Refills Start Date End Date Status MULTI-VITAMIN DAILY PO TABS Take by mouth . Active Blood Glucose Monitoring Suppl (amSTATZ ULTRA SYSTEM) w/Device KITIndications:Type 2 diabetes mellitus with hemoglobin A1c goal of less than 8.0% ([facility]) Use as directed 4 times a day [...] as of this encounter (statuses as of 01/26/2024) Active Problems Problem Noted Date Diagnosed Date Coronary artery disease of n ative artery of [place] heart with stable angina pectoris 01/21/2024 Immunosuppressed [...] as of this encounter (statuses as of 01/26/2024) Resolved Problems Problem Noted Date Diagnosed Date [...] as of this encounter (statuses as of 01/26/2024) Immunizations Name Administration Dates Next Due COVID-19 mRNA, LNP-s, No Pre serve, 2-Dose Series ([employer]) 03/04/2022,06/09/2021,11/14/2020,02/0 05/2021 COVID-19, MRNA-LNP, 23-24, P F, 30 MCG/0.3 mL, 12 YRS AND ABOVE, IM ([employer]) 07/21/2023 Covid-19, Mrna, Lnp-s, Pf, B ivalent, [...] Falcon RN - 01/26/2024 7:44 AM EDT [facility]: Contact # [phone] Directions to Surgical Suite in from the Aneta Entrance The Surgical Waiting Room can be found in the [facility]. Enter through Main [facility] Entrance and the Waiting Room is directly in front of you. Proceed to check in and give them your name. Directions to Surgical Suite from the East Entrance Enter the East entrance and follow the hallway to the J elevator. Take the J elevator up to Level 1. Continue down the long hallway to the main [facility]. The Surgical Waiting Room will be on your Right. Proceed to check in and give them your Name. Directions to Surgical Suite from the Parking Garage Enter the [facility] lobby and proceed down the carmichael to the left. At the end of the carmichael, turn right. Continue down the long hallway to the main [facility]. The Surgical Waiting Room will be on [...] deodorants after bathing. No hairspray, or nail guamanian on fingers or toes. Day of surgery/procedure [...] name and bring to hospital. -An escort canal driver is required if you are being discharged [...] taxi home, you must have your responsible alliance party accompany you in the taxi ride [...] is important to make arrangements for a canal driver to take you home. Please be aware [...] alsoprovided to guide your completion of the [facility] anesthesia consent form which addresses real, but infrequent, problems associated with anesthesia. IMPORTANT INFORMATION TO PREVENT YOUR SURGERY FROM BEING CANCELLED/ RESCHEDULED: --You are required to have a canal driver to take you home whether you are [...] sure, contact your primary care physician, your biomedical equipment specialist, or your surgeon to check if this [...] Department Care Team (Latest Contact Info) Description 01/26/2024 8:30 AM EDT PulmDiagnostic Pulmonary Function Lab, [address] [address] [address], Pulm Function Room 1 [address] [place] [address] Coronary artery disease of [place] artery of [place] heart with stable angina pectoris (HCC)* 01/29/2024 7:00 AM EDT Hospital Encounter [facility] OPERATING [facility] [address] [place] [address] Aravind Rust MD [address] [place] [address] 01/29/2024 7:00 AM EDT Anesthesia Event OR [facility] OPERATING [facility] [address] [facility] [place] [address] Wandy Falcon RN 01/29/2024 7:00 AM EDT - 01/29/2024 1:44 PM EDT Surgery OR [facility] OPERATING RO[facility] [address] [facility] [place] [address] Aravind Rust MD [address] [place] [address] CORONARY ARTERY BYPASS GRAFT USING ARTERY 1 GRAFT 02/26/2024 11:00 AM EDT Office Visit Pharmacy, [place] [address] [place] [address] [facility] [address] [place] [address] 02/26/2024 11:20 AM EDT Office Visit [facility] [place] [address] [place] [address] Winston Luna MD [address] [place] [address] 05/12/2024 9:50 AM EDT Laboratory Laboratory, [place] [address] [place] [phone] [facility] [address] [place] [address] 05/19/2024 10:30 AM EDT Office Visit Hematology/Oncolog y [facility] [place] [address] [place] [id number] Estrella Bull MD [address] [place] [address] 07/23/2024 1:00 PM EST Office Visit Dermatology [facility] [address] [place] [address] Tay Alejandra MD [address] [place] [address] Scheduled Procedures Name Priority Associated Diagnoses Date/Ti me CORONARY ARTERY BYPASS GRAFT USING ARTERY 1 GRAFT Nonrheumatic aortic valve stenosis Coronary artery disease of [place] artery of [place] heart with stable angina pectoris (HCC) 01/29/2024 7:00 AM EDT CORONARY ARTERY BYPASS GRAFT ARTERIAL AND VENOUS 2 GRAFTS Nonrheumatic aortic valve stenosis Coronary artery disease of [place] artery of [place] heart with stable angina pectoris (HCC) 01/29/2024 7:00 AM EDT ENDOSCOPY VIDEO ASSISTED HARVEST VEIN Nonrheumatic aortic valve stenosis Coronary artery disease of [place] artery of [place] heart with stable angina pectoris (HCC) 01/29/2024 7:00 AM EDT WITH REPLACEMENT AORTIC VALVE Nonrheumatic aortic valve stenosis Coronary artery disease of [place] artery of [place] heart with stable angina pectoris ([facility]) 01/29/2024 7:00 AM EDT COLONOSCOPY FLEXIBLE PROXIMAL [...] 023, 04/17/2022, 09/26/2020, Additional history exists HbA1c 05/26/2024 11/24/2023, 08/08, 05/13/2023, Additional history exists B-12 08/25/2024 08/25/2023, 04/08, 08/21/2021, Additional history exists GFR 01/06/2025 01/07/2024, 11/06, 08/25/2023, Additional history exists DTaP,Tdap,and Td Vaccines (3 [...] this encounter Medical Devices Implanted Type Area Boat Joiner Helper Device Identifier Shelf Expiration Date Model / Serial / Lot Mesh Plug Prefix Lg [id number] - [id number] Implanted:Qty: 1 on 06/17/2016 by Nehemiha Guevara DO at OR [facility] Left: Groin CR BARD : DAVOL 04/07/2019 [id number] / / [id number] Prime Fenestrated Screw Implanted:Qty: 4 on 12/28/2020 by Nehemiah Neal III, MD at OR [facility] N/A: Back 12/28/2021 [id number] / / Prime Fenestrrated Screw Implanted:Qty: 6 on 12/28/2020 by Nehemiah Neal III, MD at OR [facility] N/A: Back 12/28/2021 [id number] / / Description:VIPER PRIME X TA B 7 X 50 MM TI Screw Set Sng Inner [id number] - [id number] Implanted:Qty: 10 on 12/28/2020 by Nehemiah Neal III, MD at OR [facility] N/A: Back JNJ : [employer] 12/28/2021 [id number] / / Roxi Implanted:Qty: 2 on 12/28/2020 by Nehemiah Neal III, MD at OR [facility] N/A: Back 12/28/2021 1967-89 / / Description:VIPER2 STRAIGHT ROXI 20 MM COCR Patch Hernia Ventralex l - [id number] Implanted:Qty: 1 on 01/14/2023 by Kashif Deal MD at OR [facility] N/A: Abdomen CR BARD : DAVOL 07/05/2024 [id number] / / [id number] documented as of this encounter Visit Diagnoses Diagnosis Coronary artery disease of [place] artery of [place] heart with stable angina pectoris (HCC)- Primary Coronary artery disease of [place] artery of [place] heart with stable angina pectoris (HCC) Nonrheumatic aortic valve stenosis Aortic valve disorders Coronary artery disease of [place] artery of [place] heart with stable angina pectoris (HCC)- Primary Pre-operative examination- Primary Preoperative examination, unspecified Nonrheumatic aortic valve stenosis Aortic valve disorders Coronary artery disease of [place] artery of [place] heart with stable angina pectoris (HCC) documented [...] Directives occurred with: Not Discussed Care Teams Planetarium Technician Relationship Specialty Start Date End Date Winston Luna MD [address] [place] [address] PCP - General 07/08/1999 documented as of this encounter
--- OUTSIDE RECORDS SUMMARY | 2024-02-09 13:12 | External Medical Summary | Summary of Care ---
Author Name Unknown Organization [facility] Address [address] [place] [address] Phone [phone] Care Team Providers Care Speech Language Pathology Assistant Name Role Phone Winston Luna MD Primary Care Provider [phone] Reason for Visit * Reason Comments Pulmonary Function Test Encounter Details Date Type Department Care Team (Late st Contact Info) Description 01/26/2024 7:30 AM EDT PulmDiagnostic Pulmonary Function Lab, [facility] [address] [place] [address] [facility], Pulm Function Room 2 [address] [place] [address] Coronary artery disease of [place] artery of [place] heart with stable angina pectoris (HCC)*; Nonrheumatic aortic valve stenosis; ALIE (obstructive sleep apnea) Allergies Active Allergy Reactions Criticality Noted Date Comments Amoxicillin Nausea/vomiting Medium 06/30/2018 documented as of this encounter (statuses as of 01/26/2024) Medications Medication Sig Dispensed Refills Start Date End Date Status MULTI-VITAMIN DAILY PO TABS Take by mouth . Active Blood Glucose Monitoring Suppl (SkimaTalk ULTRA SYSTEM) w/Device KITIndications:Type 2 diabetes mellitus with hemoglobin A1c goal of less than 8.0% ([facility]) Use as directed 4 times a day [...] in the morning. 16 g 11/21/2023 Active Gabapentin 300 MG Oral Capsule (Neurontin)Indicati ons:DM [...] up to surgery 120 mL 01/22/2024 Active documented as of this encounter (statuses as of 01/26/2024) Active Problems Problem Noted Date Diagnosed Date Coronary artery disease of n ative artery of confed[place] co[place] heart with stable angina pectoris 01/21/2024 Immunosuppressed [...] update of inactive term Mixed dyslipidemia 12/09/2008 Overview: Per Lipid Taxonomy. PAIN IN LIMB, RIGHT FOOT 05/22/2007 Type 2 diabetes mellitus wit h hemoglobin A1c goal of less than 7.0% 02/26/2002 07/06/2009 Overview: Per Diabetes Taxonomy. ICD-10 update of inactive term documented as of this encounter (statuses as of 01/26/2024) Immunizations Name Administration Dates Next Due COVID-19 mRNA, LNP-s, No Pre serve, 2-Dose Series (Snaptu) 03/04/2022,06/09/2021,11/14/2020,02/0 05/2021 COVID-19, MRNA-LNP, 23-24, P F, 30 MCG/0.3 mL, 12 YRS AND ABOVE, IM (Ecorithm-Comirnaty) 07/21/2023 Covid-19, Mrna, Lnp-s, Pf, B ivalent, [...] Influenza, Split, I IV3, With Preserve, Inj 08/05/2014,05/24/2013,06/23/2012,07/10,06/25/2010,05/29/2009,07/04/20,07/22/2007,07/17/2006 TDAP (age 10 and older)(Boostrix) 05/26/2015 TDAP [...] 8:30 AM EDT PulmDiagnostic Pulmonary Function Lab, [address] [address] [facility], Pul Function Room [address] [place] [address] Coronary artery disease of [place] artery of [place] heart with stable angina pectoris (HCC)* 01/26/2024 9:00 AM EDT Pre-Admission Testing Pre [facility], [address] [address] Pre-operative examination* 01/29/2024 7:00 AM EDT Hospital Encounter [facility], OPERATING ROOM [facility] [address] [place] [facility] [address] Aravind Rust MD [address] [place] [address] 01/29/2024 7:00 AM EDT Anesthesia Event OR [facility], OPERATING ROOM [facility] [address] [facility] [address] Wandy Falcon RN 01/29/2024 7:00 AM EDT - 01/29/2024 1:44 PM EDT Surgery OR [facility], OPERATING ROOM [facility] [address] [place] [phone] Aravind Rust MD [address] [place] [address] CORONARY ARTERY BYPASS GRAFT USING ARTERY 1 GRAFT 02/26/2024 11:00 AM EDT Office Visit Pharmacy, [place] [address] [place] [address] [facility] [address] [place] [address] 02/26/2024 11:20 AM EDT Office Visit [place] [address] [place] [address] Winston Luna MD [address] [place] [address] 05/12/2024 9:50 AM EDT Laboratory Laboratory, [place] [address] [place] [address] [facility] [address] [place] [address] 05/19/2024 10:30 AM EDT Office Visit Hematology/Oncolog y [facility] [address] [place] [phone] Estrella Bull MD [address] [place] [address] 07/23/2024 1:00 PM EST Office Visit Dermatology [facility] [address] [place] [address] [place] [address] Tay Alejandra MD [address] [place] [address] Pending Results Name Type Priority Associated Diagnoses Date /Time BASIC SPIROMETRY Procedures Routine Nonrheumatic aortic valve stenosis Coronary artery disease of conf[place] artery of [place] heart with stable angina pectoris (HCC) ALIE (obstructive sleep apnea) 01/26/2024 7:20 AM EDT Scheduled Procedures Name Priority Associated Diagnoses Date/Ti me CORONARY ARTERY BYPASS GRAFT USING ARTERY 1 GRAFT Nonrheumatic aortic valve stenosis Coronary artery disease of [place] artery of [place] heart with stable angina pectoris (HCC) 01/29/2024 7:00 AM EDT CORONARY ARTERY BYPASS GRAFT ARTERIAL AND VENOUS 2 GRAFTS Nonrheumatic aortic valve stenosis Coronary artery disease of conf[place] artery of [place] heart with stable angina pectoris (HCC) 01/29/2024 7:00 AM EDT ENDOSCOPY VIDEO ASSISTED HARVEST VEIN Nonrheumatic aortic valve stenosis Coronary artery disease of [place] artery of [place] heart with stable angina pectoris (HCC) 01/29/2024 7:00 AM EDT WITH REPLACEMENT AORTIC VALVE Nonrheumatic aortic valve stenosis Coronary artery disease of conf[place] artery of [place] heart with stable angina pectoris (HCC) 01/29/2024 [...] this encounter Medical Devices Implanted Type Area Photography Coordinator Device Identifier Shelf Expiration Date Model / Serial / Lot Mesh Plug Prefix [id number] [id number] - [id number] Implanted:Qty: 1 on 06/17/2016 by Nehemiah Guevara DO at OR [facility] Left: Groin CR BARD : DAVOL 04/07/2019 [id number] / / [id number] Prime Fenestrated Screw Implanted:Qty: 4 on 12/28/2020 by Nehemiah Neal III, MD at OR [facility] N/A: Back 12/28/[id number] / / Prime Fenestrrated Screw Implanted:Qty: 6 on 12/28/2020 by Nehemiah Neal III, MD at OR [facility] N/A: Back 12/28/20215-12-288 / / Description:VIPER PRIME X TA B 7 X 50 MM TI Screw Set Sng Inner [id number] - [id number] Implanted:Qty: 10 on 12/28/2020 by Nehemiah Neal III, MD at OR [facility] N/A: Back JNJ : ETHICON [employer]OVATIONS 12/28/2021 [id number] / / Roxi Implanted:Qty: 2 on 12/28/2020 by Nehemiah Neal III, MD at OR [facility] N/A: Back 12/28/2021 1967-89- / / Description:VIPER2 STRAIGHT ROXI 20 MM COCR Patch Hernia Ventralex [facility] - [id number] Implanted:Qty: 1 on 01/14/2023 by Kashif Deal MD at OR [facility] N/A: Abdomen CR BARD : DAVOL 07/05/2024 [id number] / / [id number] documented as of this encounter Procedures Procedure Name Priority Date/Time Associated Diagnosis Comments BLOOD GAS, ARTERIAL Routine 01/26/2024 7 :33 AM EDT Nonrheumatic aortic valve stenosis BASIC SPIROMETRY Routine 01/26/2024 7:20 AM EDT Nonrheumatic aortic valve stenosis Coronary artery disease of [place] artery of [place] heart with stable angina pectoris (HCC) ALIE (obstructive sleep apnea) documented in this encounter Results * (ABNORMAL) BLOOD GAS, ARTERIAL (01/26/2024 7:33 AM EDT) Temperature 37.0 C 01/26/2024 7:48 AM EDT LAB[facility]ORY [facility] pH, Arterial 7.406 7.350 - 7.450 units 01/26/2024 7:48 AM EDT [facility] pCO2, Arterial 36.1 35.0 - 45.0 mmHg 01/26/2024 7:48 AM EDT [facility] pO2, Arterial 91.7 75.0 - 100.0 mmHg 01/26/2024 7:48 AM EDT [facility] Base Excess, Arterial -1.4 -2.0 - 2.0 mmol/L 01/26/2024 7:48 AM EDT [facility] HGB 13.8(L) 14.0 - 16.8 g/dL 01/26/2024 7:48 AM EDT [facility] Oxyhemoglobin, Arterial 95.4 94.0 - 99.0 % total Hgb 01/26/2024 7:48 AM EDT [facility] Carboxyhemoglob in, Whole Blood 1.4 <=1.5 % total Hgb 01/26/2024 7:48 AM EDT [facility] Comment:Smokers: 0-9.0 % Methemoglobin, Whole Blood 0.5 <=1.5 % total Hgb 01/26/2024 7:48 AM EDT [facility] Reduced Hemoglobin, Arterial 2.7 0.0 - 5.0 % total Hgb 01/26/2024 7:48 AM EDT [facility] O2 Content, Arterial 18.6 15.0 - 24.0 %vol 01/26/2024 7:48 AM EDT [facility] FiO2 21 % 01/26/2024 7:48 AM EDT [facility] O2 Flow, Arterial Not Provided L/min 01/26/2024 7:48 AM EDT [facility] Bicarbonate, Whole Blood 22.3(L) 23.0 - 31.0 mmol/L 01/26/2024 7:48 AM EDT [facility] Blood Arterial blood specimen / Unknown Arterial Puncture / Unknown 01/26/2024 7:33 AM EDT 01/26/2024 7:36 AM EDT Aravind Rust MD LAB BLOOD O RDERABLES Performing Organization Address City/State/[facility] Co de Phone Number [facility]ORY [facility] [address] [place] [address] documented in this encounter Visit Diagnoses Diagnosis Coronary artery disease of conf[place] artery of [place] heart with stable angina pectoris (HCC)- Primary Coronary artery disease of [place] artery of [place] heart with stable angina pectoris (HCC) Nonrheumatic aortic valve stenosis Aortic valve disorders Coronary artery disease of [place] artery of [place] heart with stable angina pectoris (HCC)- Primary Nonrheumatic aortic valve stenosis Aortic valve disorders ALIE (obstructive sleep apnea) Obstructive sleep apnea (adult) (pediatric) Coronary artery disease of [place] artery of [place] heart with stable angina pectoris (HCC)- Primary Pre-operative examination- Primary Preoperative examination, unspecified Nonrheumatic aortic valve stenosis Aortic valve disorders Coronary artery disease of conf[place] co[place] artery of conf[place] heart with stable angina pectoris (HCC) documented [...] Directives occurred with: Not Discussed Care Teams Speech Language Pathology Assistant Relationship Specialty Start Date End Date Winston Luna MD [address] [facility] [place] [address] PCP - General 07/08/1999 documented as of this encounter
--- OUTSIDE RECORDS SUMMARY | 2024-02-09 13:12 | External Medical Summary | Summary of Care ---
Author Name Unknown Organization [facility] Address [address] [place] [address] Phone [phone] Care Team Providers Care Lead Sales Consultant Name Role Phone Winston Luna MD Primary Care Provider [phone] Reason for Visit * Reason Comments Outpatient Testing Encounter Details Date Type Department Care Team (Late st Contact Info) Description 01/26/2024 8:10 AM EDT Laboratory Laboratory, [facility] [address] [place] [address] [facility], Lab [address] [place] [address] Nonrheumatic aortic valve stenosis; Encounter for other preprocedural examination; Other general symptoms and signs; Coronary artery disease of [place] artery of [place] heart with stable angina pectoris (HCC); ALIE (obstructive sleep apnea); Type 2 diabetes mellitus with hemoglobin A1c goal of less than 8.0% ([facility]) Allergies Active Allergy Reactions Criticality Noted Date Comments Amoxicillin Nausea/vomiting Medium 06/30/2018 documented as of this encounter (statuses as of 01/26/2024) Medications Medication Sig Dispensed Refills Start Date End Date Status MULTI-VITAMIN DAILY PO TABS Take by mouth . Active Blood Glucose Monitoring Suppl ([employer] ULTRA SYSTEM) w/Device KITIndications:Type 2 diabetes mellitus with hemoglobin A1c goal of less than 8.0% ([facility]) Use as directed 4 times a [...] artery disease of n ative artery of [place] heart with stable angina pectoris 01/21/2024 Immunosuppressed [...] mRNA, LNP-s, No Pre serve, 2-Dose Series (EyeSee360) 03/04/2022,06/09/2021,11/14/2020,02/0 05/2021 COVID-19, MRNA-LNP, 23-24, P F, 30 MCG/0.3 mL, 12 YRS AND ABOVE, IM (99inn.cc-Comirnaty) 07/21/2023 Covid-19, Mrna, Lnp-s, Pf, B ivalent, [...] Care Team (Latest Contact Info) Description 01/26/2024 9:00 AM EDT Pre-Admission Testing Pre [facility], [address] [address] Pre-operative examination* 01/29/2024 7:00 AM EDT Hospital Encounter OR [facility], OPERATING ROOM [facility] [address] [place] [address] Aravind Rust MD [address] [place], [place] [phone] 01/29/2024 7:00 AM EDT Anesthesia Event OR [facility], OPERATING ROOM [facility] [address] [place] [facility] [place] [address] Wandy Falcon RN 01/29/2024 7:00 AM EDT - 01/29/2024 1:44 PM EDT Surgery OR [facility], OPERATING ROOM [facility] [address] [facility] [place] [address] Aravind Rust MD [address] [place] [address] CORONARY ARTERY BYPASS GRAFT USING ARTERY 1 GRAFT 02/26/2024 11:00 AM EDT Office Visit Pharmacy, [place] [address] [place] [address] [facility] [address] [place], [place] [phone] 02/26/2024 11:20 AM EDT Office Visit [facility], [place] [address] [place] [address] Winston Luna MD [address] [place] [address] 05/12/2024 9:50 AM EDT Laboratory Laboratory, [address] [phone] [facility] [address] [place], [place] [phone] 05/19/2024 10:30 AM EDT Office Visit Hematology/Oncolog y [facility] [place] [address] [facility] [place] [phone] Estrella Bull MD [address] [facility] [address] [place] [address] 07/23/2024 1:00 PM EST Office Visit Dermatology [facility] [place] [address] [facility] [place] [address] Tay Alejandra MD [address] [facility] [place] [address] Pending Results Name Type Priority Associated Diagnoses Date /Time CBC WITH WBC DIFFERENTIAL AND ANEMIA REFLEX WORKUP Lab Routine Nonrheumatic aortic valve stenosis 01/26/2024 8:19 AM EDT BASIC METABOLIC PANEL Lab Today Nonrheumatic aortic valve stenosis 01/26/2024 8:19 AM EDT CULTURE, URINE, QUANTITATIVE Lab Routine Nonrheumatic aortic valve stenosis Encounter for other preprocedural examination Other general symptoms and signs 01/26/2024 8:19 AM EDT URINALYSIS, REFLEX TO MICROSCOPIC Lab Today Nonrheumatic aortic valve stenosis Coronary artery disease of [place] artery of [place] heart with stable angina pectoris (HCC) ALIE (obstructive sleep apnea) Type 2 diabetes mellitus with hemoglobin A1c goal of less than 8.0% (HCC) 01/26/2024 8:19 AM EDT HEMOGLOBIN A1C Lab Routine Nonrheumatic aortic valve stenosis Coronary artery disease of [place] artery of [place] heart with stable angina pectoris (HCC) ALIE (obstructive sleep apnea) Type 2 diabetes mellitus with hemoglobin A1c goal of less than 8.0% (HCC) 01/26/2024 8:19 AM EDT HEPATIC FUNCTION PANEL Lab Today Nonrheumatic aortic valve stenosis 01/26/2024 8:19 AM EDT IRON SCREEN, INCLUDING TIBC Lab Today Nonrheumatic aortic valve stenosis 01/26/2024 8:19 AM EDT TYPE AND SCREEN Lab Routine Nonrheumatic aortic valve stenosis 01/26/2024 8:19 AM EDT TSH Lab Routine Nonrheumatic aortic valve stenosis Coronary artery disease of [place] artery of [place] heart with stable angina pectoris (HCC) ALIE (obstructive sleep apnea) Type 2 diabetes mellitus with hemoglobin A1c goal of less than 8.0% ([facility]) 01/26/2024 8:19 AM EDT RETICULOCYTE PANEL Lab Routine Nonrheumatic aortic valve stenosis Coronary artery disease of [place] artery of [place] heart with stable angina pectoris (HCC) ALIE (obstructive sleep apnea) Type 2 diabetes mellitus with hemoglobin A1c goal of less than 8.0% ([facility]) Encounter for other preprocedural examination Other general symptoms and signs 01/26/2024 8:19 AM EDT FERRITIN Lab Routine Nonrheumatic aortic valve stenosis Coronary artery disease of [place] artery of [place] heart with stable angina pectoris (HCC) ALIE (obstructive sleep apnea) Type 2 diabetes mellitus with hemoglobin A1c goal of less than 8.0% (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) 01/29/2024 7:00 AM EDT WITH REPLACEMENT AORTIC VALVE Nonrheumatic aortic valve stenosis Coronary artery disease of [place] artery of [place] heart with stable angina pectoris ([facility]) 01/29/2024 7:00 AM EDT COLONOSCOPY FLEXIBLE PROXIMAL [...] this encounter Medical Devices Implanted Type Area Carrier Driver Device Identifier Shelf Expiration Date Model / Serial / Lot Mesh Plug Prefix Lg [id number] - [id number] Implanted:Qty: 1 on 06/17/2016 by Nehemiah Guevara DO at OR [facility] Left: Groin CR BARD : DAVOL 04/07/2019 [id number] / / [id number] Prime Fenestrated Screw Implanted:Qty: 4 on 12/28/2020 by Nehemiah Neal III, MD at OR [facility] N/A: Back 12/28/[id number] / / Prime Fenestrrated Screw Implanted:Qty: 6 on 12/28/2020 by Nehemiah Neal III, MD at OR [facility] N/A: Back 12/28/202[address]-70-926 / / Description:VIPER PRIME X TA B 7 X 50 MM TI Screw Set Sn Inner [id number] - [id number] Implanted:Qty: 10 on 12/28/2020 by Nehemiah Neal III, MD at OR [facility] N/A: Back JNJ : ETH[employer]ON [employer]IOV[employer] 12/28/2021 [id number] / / Roxi Implanted:Qty: 2 on 12/28/2020 by Nehemiah Neal III, MD at OR [facility] N/A: Back 12/28/2021 [id number] / / Description:VIPER2 STRAIGHT ROXI 20 MM COCR Patch Hernia Ventralex l - [id number] Implanted:Qty: 1 on 01/14/2023 by Kashif Deal MD at OR [facility] N/A: Abdomen CR BARD : DAVOL 07/05/2024 [id number] / / [id number] documented as of this encounter Visit Diagnoses Diagnosis Coronary artery disease of [place] artery of [place] heart with stable angina pectoris (HCC)- Primary Coronary artery disease of [place] artery of [place] heart with stable angina pectoris (HCC) Nonrheumatic aortic valve stenosis Aortic valve disorders Pre-operative examination- Primary Preoperative examination, unspecified Nonrheumatic aortic valve stenosis Aortic valve disorders Encounter for other preprocedural examination Other general symptoms and signs Coronary artery disease of [place] artery of [place] heart with stable angina pectoris (HCC) ALIE (obstructive sleep apnea) Obstructive sleep apnea (adult) (pediatric) Type 2 diabetes mellitus with hemoglobin A1c goal of less than 8.0% (HCC) Nonrheumatic aortic valve stenosis Aortic valve disorders Coronary artery disease of [place] artery of [place] heart with stable angina pectoris (HCC) documented [...] Directives occurred with: Not Discussed Care Teams Lead Sales Consultant Relationship Specialty Start Date End Date Winston Luna MD [address] [facility] [place] [address] PCP - General 07/08/1999 documented as of this encounter
--- OUTSIDE RECORDS SUMMARY | 2024-02-09 13:12 | External Medical Summary | Summary of Care ---
Author Name Unknown Organization [facility] Address [address] [place] [address] Phone [phone] Care Team Providers Care Carpenter Packing Name Role Phone Winston Luna MD Primary Care Provider [phone] Reason for Visit * Reason Comments Pulmonary Function Test Encounter Details Date Type Department Care Team (Late st Contact Info) Description 01/26/2024 8:30 AM EDT PulmDiagnostic Pulmonary Function Lab, [facility] [address] [place] [address] [facility], Pulm Function Room 1 [address] [place] [address] Coronary artery disease of [place] artery of [place] heart with stable angina pectoris (HCC)* Allergies Active Allergy Reactions Criticality Noted Date Comments Amoxicillin Nausea/vomiting Medium 06/30/2018 documented as of this encounter (statuses as of 01/26/2024) Medications Medication Sig Dispensed Refills Start Date End Date Status MULTI-VITAMIN DAILY PO TABS Take by mouth . Active Blood Glucose Monitoring Suppl (PasswordBox ULTRA SYSTEM) w/Device KITIndications:Type 2 diabetes mellitus with hemoglobin A1c goal of less than 8.0% ([facility]) Use as directed 4 times a day [...] artery disease of n ative artery of [place] heart with stable angina pectoris 01/21/2024 Immunosuppressed [...] mRNA, LNP-s, No Pre serve, 2-Dose Series ([employer]) 03/04/2022,06/09/2021,11/14/2020,0205/2021 COVID-19, MRNA-LNP, 23-24, P F, 30 MCG/0.3 mL, 12 YRS AND ABOVE, IM ([employer]Comir[employer]) 07/21/2023 Covid-19, Mrna, Lnp-s, Pf, B ivalent, [...] as of this encounter Progress Notes * Elsa Parekh RRT - 01/26/2024 7:37 AM EDT Abg collected on room air. documented in this encounter Plan of Treatment Upcoming Encounters Date Type Department Care Team (Latest Contact Info) Description 01/26/2024 9:00 AM EDT Pre[facility], [address] [address] Pre-operative examination* 01/29/2024 7:00 AM EDT Hospital Encounter [place] [facility] OPER[place] ROOM [facility] [address] [place] [address] Aravind Rust MD [address] [place], [place] [id number] 01/29/2024 7:00 AM EDT Anesthesia Event [place] [facility], OPERATING RO[facility] [address] [place] [address] Wandy Falcon RN 01/29/2024 7:00 AM EDT - 01/29/2024 1:44 PM EDT Surgery [place] [facility], OPERATING ROOM [facility] [address] [place] [address] Aravind Rust MD [address] [place] [address] CORONARY ARTERY BYPASS GRAFT USING ARTERY 1 GRAFT 02/26/2024 11:00 AM EDT Office Visit Pharmacy, [place] [address] [place] [address] [facility] [address] [place] [address] 02/26/2024 11:20 AM EDT Office Visit [facility], [place] [address] [place] [address] Winston Luna MD [address] [place] [address] 05/12/2024 9:50 AM EDT Laboratory Laboratory, [place] [address] [place] [phone] [facility] [address] [place] [address] 05/19/2024 10:30 AM EDT Office Visit Hematology/Oncolog y [facility] [place] [address] [facility] [place] [address] Estrella Bull MD [address] [facility] [place] [address] 07/23/2024 1:00 PM EST Office Visit Dermatology [facility] [place] [address] [facility] [place] [address] Tay Alejandra MD [address] [facility] [place] [address] Scheduled Procedures Name Priority Associated Diagnoses Date/Ti me CORONARY ARTERY BYPASS GRAFT USING ARTERY 1 GRAFT Nonrheumatic aortic valve stenosis Coronary artery disease of [place] artery of [place] heart with stable angina pectoris (HCC) 01/29/2024 7:00 AM EDT CORONARY ARTERY BYPASS GRAFT ARTERIAL AND VENOUS 2 GRAFTS Nonrheumatic aortic valve stenosis Coronary artery disease of [place] artery of [place] heart with stable angina pectoris ([facility]) 01/29/2024 7:00 AM EDT ENDOSCOPY VIDEO ASSISTED HARVEST VEIN Nonrheumatic aortic valve stenosis Coronary artery disease of [place] artery of [place] heart with stable angina pectoris ([facility]) 01/29/2024 7:00 AM EDT WITH REPLACEMENT AORTIC VALVE Nonrheumatic aortic valve stenosis Coronary artery disease of [place] artery of [place] heart with stable angina pectoris ([facility]) 01/29/2024 7:00 AM EDT COLONOSCOPY FLEXIBLE PROXIMAL [...] this encounter Medical Devices Implanted Type Area Dry Kiln Operator Device Identifier Shelf Expiration Date Model / Serial / Lot Mesh Plug Prefix Lg [id number] - [id number] Implanted:Qty: 1 on 06/17/2016 by Nehemiah Guevara DO at OR [facility] Left: Groin CR BARD : DAVOL 04/07/2019 [id number] / / [id number] Prime Fenestrated Screw Implanted:Qty: 4 on 12/28/2020 by Nehemiah Neal III, MD at [place] [facility] N/A: Back 12/28/2021 [id number] / / Prime Fenestrrated Screw Implanted:Qty: 6 on 12/28/2020 by Nehemiah Neal III, MD at [place] [facility] N/A: Back 12/28/2021 [id number] / / Description:VIPER PRIME X TA B 7 X 50 MM TI Screw Set Sng Inner [id number] - [id number] Implanted:Qty: 10 on 12/28/2020 by Nehemiah Neal III, MD at [place] [facility] N/A: Back JNJ : [employer] 12/28/2021 [id number] / / Roxi Implanted:Qty: 2 on 12/28/2020 by Nehemiah Neal III, MD at [place] [facility] N/A: Back 12/28/2021 [id number] / / Description:VIPER2 STRAIGHT ROXI 20 MM COCR Patch Hernia Ventralex l - [id number] Implanted:Qty: 1 on 01/14/2023 by Kashif Deal MD at OR [facility] N/A: Abdomen CR BARD : DAVOL 07/05/2024 [id number] / / [id number] documented as of this encounter Visit Diagnoses Diagnosis 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) Nonrheumatic aortic valve stenosis Aortic valve disorders Coronary artery disease of [place] artery of [place] heart with stable angina pectoris (HCC)- Primary Pre-operative examination- Primary Preoperative examination, unspecified Nonrheumatic aortic valve stenosis Aortic valve disorders Coronary artery disease of [place] artery of [place] heart with stable angina pectoris (HCC) documented [...] Directives occurred with: Not Discussed Care Teams Carpenter Packing Relationship Specialty Start Date End Date Winston Luna MD [address] [place] [address] PCP - General 07/08/1999 documented as of this encounter
--- OUTSIDE RECORDS SUMMARY | 2024-02-09 13:13 | External Medical Summary ---
Author Name Unknown Address Unknown Organization [id number]:[facility] - [address] [place] [facility] Laboratory Report Ordering Provider Test Date Status IRASEMA [place] 01/26/2024 08:19:27 Final Observation Date Value Abnormality Reference (Units) Status Bacteria identified in Specimen by Culture 01/26/2024 08:19:27 No significant growth Final Test: Culture, Urine, Quanti tative
Specimen Source: Urine, Clean Catch
Specimen Type: Urine
Specimen Date: 01/26/2024818
Result Date: 01/27/2024820
Result Status: Final result
Resulting Lab: [facility]
[address]
[place] [address]

CULTURE

No significant growth

null Performing Location [facility] - [address] [place] [address]
--- OUTSIDE RECORDS SUMMARY | 2024-02-09 13:13 | External Medical Summary ---
Author Name Unknown Address Unknown Organization [id number]:[facility] [place] [place] [address] [place] [address] Laboratory Report Ordering Provider Test Date Status IRASEMA NORMAN 01/26/2024 08:19:27 Final Observation Date Value Abnormality Reference (Units ) Status TSH 01/26/2024 08:19:27 3.64 0.27-4.20 (uIU/mL) Final Performing Location [facility] - [address] [place] [address]
--- OUTSIDE RECORDS SUMMARY | 2024-02-09 13:13 | External Medical Summary ---
Author Name Unknown Address Unknown Organization [id number]:[facility] - [address] [place] [address] Laboratory Report Ordering Provider Test Date Status IRASEMA NORMAN 01/26/2024 07:33:48 Final Observation Date Value Abnormality Reference (Units ) Status Body temperature 01/26/2024 07:33:48 37.0 (C) Final pH of Arterial blood 01/26/2024 07:33:48 7.406 7.350-7.450 (units) Final Carbon dioxide [Partial pressure] in Arterial blood 01/26/2024 07:33:48 36.1 35.0-45.0 (mmHg) Final Oxygen [Partial pressure] in Arterial blood 01/26/2024 07:33:48 91.7 75.0-100.0 (mmHg) Final Base excess, Arterial 01/26/2024 07:33:48 -1.4 -2.0-2.0 (mmol/L) Final Hemoglobin [Mass/volume] in Blood by Oximetry 01/26/2024 07:33:48 13.8 Below low normal 14.0-16.8 (g/dL) Final Oxyhemoglobin, Arterial (FO2HB) 01/26/2024 07:33:48 95.4 94.0-99.0 (% total Hgb) Final Carboxyhemoglobin 01/26/2024 07:33:48 1.4 <=1.5 (% total Hgb) Final Smokers: 0-9.0 % Methemoglobin 01/26/2024 07:33:48 0.5 <=1.5 (% total Hgb) Final Deoxyhemoglobin/Hemog lobin.total in Arterial blood 01/26/2024 07:33:48 2.7 0.0-5.0 (% total Hgb) Final Oxygen content in Arterial blood 01/26/2024 07:33:48 18.6 15.0-24.0 (%vol) Final Oxygen/Total gas setting [Volume Fraction] Ventilator 01/26/2024 07:33:48 21 (%) Final O2 FLOW, ARTERIAL - [facility] 01/26/2024 07:33:48 Not Provided (L/min) Final Bicarbonate, Venous, POC (i-STAT) 01/26/2024 07:33:48 22.3 Below low normal 23.0-31.0 (mmol/L) Final Performing Location LABORATORY [facility] - [address] [place] [address]
--- OUTSIDE RECORDS SUMMARY | 2024-02-09 13:13 | External Medical Summary ---
Author Name Unknown Address Unknown Organization [id number]:[facility] - [address] [facility] [address] Laboratory Report Ordering Provider Test Date Status IRASEMA NORMAN 01/26/2024 08:19:27 Final Known CLL.

null Observation Date Value Abnormality Reference (Units ) Status SYNC LEUKOCYTES IN BLOOD BY AUTOMATED COUNT 01/26/2024 08:19:27 77.90 Above upper panic limits 4.00-10.80 (K/uL) Final Neutrophils/100 leukocytes in Blood by Manual count 01/26/2024 08:19:27 1.0 Below low normal 40.0-75.0 (%) Final Lymphocytes/100 leukocytes in Blood by Manual count 01/26/2024 08:19:27 98.5 Above high normal 18.0-42.0 (%) Final Monocytes/100 leukocytes in Blood by Manual count 01/26/2024 08:19:27 0.5 Below low normal 1.0-11.0 (%) Final Neutrophils [#/volume] in Blood by Manual count 01/26/2024 08:19:27 0.78 Below low normal 1.80-7.70 (K/uL) Final Lymphocytes [#/volume] in Blood by Manual count 01/26/2024 08:19:27 76.73 Above high normal 1.00-4.80 (K/uL) Final Monocytes [#/volume] in Blood by Manual count 01/26/2024 08:19:27 0.39 0.00-1.10 (K/uL) Final Smudge cells [Presence] in Blood by Light microscopy 01/26/2024 08:19:27 Present Abnormal None Seen Final Performing Location [facility]ORY [facility] - [address] [facility] [address]
--- OUTSIDE RECORDS SUMMARY | 2024-02-09 13:13 | External Medical Summary | Summary of Care ---
Author Name Unknown Organization [facility] Address [address] [place] [address] Phone [phone] Care Team Providers Care Culinary Worker Name Role Phone Winston Luna MD Primary Care Provider [phone] Encounter Details Date Type Department Care Team (Latest Contact Info) Description 01/21/2024 9:00 AM EDT - 01/21/2024 11:59 PM EDT Hospital Encounter Vascular Lab [facility] [address] [place], [place] [id number] Arrived Discharge Disposition: Home - Self Care Allergies Active Allergy Reactions Criticality Noted Date Comments Amoxicillin Nausea/vomiting Medium 06/30/2018 documented as of this encounter (statuses as of 01/22/2024) Medications Medication Sig Dispensed Refills Start Date End Date Status MULTI-VITAMIN DAILY PO TABS Take by mouth . 0 Active Blood Glucose Monitoring Suppl (ONETOUCH ULTRA SYSTEM) w/Device KITIndications:Type 2 diabetes mellitus with hemoglobin A1c goal of less than 8.0% ([facility]) Use as directed 4 times a day as needed (blood glucose). Use up to four times a day as directed 1 Kit 0 12/22/2017 Active Turmeric Curcumin Oral Capsule 0 Active Fish Oil 1000 MG Oral Capsule Take 1 Capsule by mouth in the morning. 0 Active OneTouch Verio w/Device KitIndications:Type 2 diabetes mellitus with hemoglobin A1c goal of less than 8.0% (HCC) Use once daily E11.9 1 Kit 0 05/09/2022 Active Omeprazole 20 MG Oral Capsule Delayed Release (PriLOSEC)Indicatio ns:GERD (gastroesophageal reflux disease) TAKE 1 CAPSULE BY MOUTH ONCE DAILY. MAY TAKE AN ADDITIONAL DOSE DAILY FOR PERSISTENT HEARTBURN 90 Capsule 3 07/07/2023 Active Rohith Limon In Vitro Strip (Glucose Blood) Use once daily as directed, E11.9 100 Strip 3 09/02/2023 Active Rosuvastatin Calcium 20 MG Oral Tablet (Crestor)Indication s:Dyslipidemia, goal LDL below 100 TAKE 1 TABLET BY MOUTH EVERY MORNING 90 Tablet 3 09/05/2023 Active Fenofibrate 48 MG Oral Tablet (Tricor) TAKE 1 TABLET BY MOUTH EVERY MORNING 90 Tablet 0 09/18/2023 Active Additional Information Patient not taking.Reason: [...] s:DM type 2 causing neurological disease (HCC) 0 10/22/2023 Active metFORMIN HCl 1000 MG Oral Tablet (Glucophage) TAKE 1 TABLET BY MOUTH TWICE DAILY every morning and at bedtime 180 Tablet 3 11/19/2023 Active Fluticasone Propionate 50 MCG/ACT Nasal Suspension (Flonase) Administer 2 Sprays into each nostril in the morning. 16 g 0 11/21/2023 Active Gabapentin 300 MG Oral Capsule (Neurontin)Indicati ons:DM type 2 causing neurological disease (HCC) TAKE 1 CAPSULE BY MOUTH TWICE DAILY 180 Capsule 3 12/09/2023 Active Additional Information Patient not taking.Reported on 12/15/2023 Repaglinide 2 MG Oral Tablet (Prandin) Take 2 Tablets by mouth in the morning and 2 Tablets at noon and 2 Tablets in the evening. Take before meals. 0 Active documented as of this encounter (statuses as of 01/22/2024) Active Problems Problem Noted Date Diagnosed Date Coronary artery disease of n ative artery of [place] heart with stable angina pectoris 01/21/2024 Immunosuppressed [...] as of this encounter (statuses as of 01/22/2024) Resolved Problems Problem Noted Date Diagnosed Date [...] as of this encounter (statuses as of 01/22/2024) Immunizations Name Administration Dates Next Due COVID-19 mRNA, LNP-s, No Pre serve, 2-Dose Series (Kash) 03/04/2022,06/09/2021,11/14/2020,05/2021 COVID-19, MRNA-LNP, 23-24, P F, 30 MCG/0.3 mL, 12 YRS AND ABOVE, IM ([employer]-ComirnatDelver) 07/21/2023 Covid-19, Mrna, Lnp-s, Pf, B ivalent, 30 Mcg, IM, 12 yrs and above (Kash) 06/26/2022 Pneumococcal Conjugate Vacc, 13 Valent (Prevnar) [...] Department Care Team (Latest Contact Info) Description 01/22/2024 1:45 PM EDT Imaging Radiology [facility] 1st [facility], [address] [place] [address] 01/26/2024 7:30 AM EDT PulmDiagnostic Pulmonary Function Lab, [address] [place] [address] [facility], Pulm Function Room [address] [place] [address] 01/26/2024 8:30 AM EDT [facility] Lab, [address] [address] [facility], Pulm Function Room [address] [place] [address], [place] [address] 01/26/2024 9:00 AM EDT Pre-Admission Testing [facility], [address] [address] [facility], [address] [address] 01/29/2024 7:00 AM EDT Hospital Encounter OR [facility], OPERATING ROOM [facility] [address] [place] [phone] Aravind Rust MD [address] [place] [address] 01/29/2024 7:00 AM EDT - 01/29/2024 1:44 PM EDT Surgery OR [facility], OPERATING ROOM [facility] [address] [facility] [place] [phone] Aravind Rust MD [address] [facility] [place], [place] [phone] CORONARY ARTERY BYPASS GRAFT USING ARTERY 1 GRAFT 02/26/2024 11:00 AM EDT Office Visit Pharmacy, [place] [address] [place] [address] [facility] [address] [place] [address] 02/26/2024 11:20 AM EDT Office Visit [facility], [place] [address] [place] [phone] Winston Luna MD [address] [place] [address] 05/12/2024 9:50 AM EDT Laboratory Laboratory, [place] [address] [place] [phone] [facility] [address] [place] [address] 05/19/2024 10:30 AM EDT Office Visit Hematology/Oncolog y [facility] [place] [address] [place] [phone] Estrella Bull MD [facility] [place] [address] 07/23/2024 1:00 PM EST Office Visit Dermatology [facility] [place] 200 [facility] [place] [address] Tay Alejandra MD 200 [facility] [place] [address] Scheduled Procedures Name Priority Associated Diagnoses Date/Ti wa CORONARY ARTERY BYPASS GRAFT USING ARTERY 1 GRAFT Nonrheumatic aortic valve stenosis Coronary artery disease of [place] artery of [place] heart with stable angina pectoris (HCC) 01/29/2024 7:00 AM EDT CORONARY ARTERY BYPASS GRAFT ARTERIAL AND VENOUS 2 GRAFTS Nonrheumatic aortic valve stenosis Coronary artery disease of [place] artery of [place] heart with stable angina pectoris ([facility]) 01/29/2024 7:00 AM EDT ENDOSCOPY VIDEO ASSISTED HARVEST VEIN Nonrheumatic aortic valve stenosis Coronary artery disease of [place] artery of [place] heart with stable angina pectoris (HCC) 01/29/2024 7:00 AM EDT WITH REPLACEMENT AORTIC VALVE Nonrheumatic aortic valve stenosis Coronary artery disease of [place] artery of [place] heart with stable angina pectoris ([facility]) 01/29/2024 7:00 AM EDT COLONOSCOPY FLEXIBLE PROXIMAL DIAGNOSTIC Recall History of colon polyps Health Maintenance Due Date Last Done Comments Cologuard 2000 Fecal Occult Blood Test 2000 Sigmoidoscopy 2000 Depression Screening 10/16/2023 10/16/2022 Diabetic Eye Exam 01/30/2024 01/29/2023, , 12/04/2021, [...] Completed , 05/24/2022, 06/09/2021, Additional history exists COVID-19 Vaccine Completed 07/21/2023, , 03/04/2022, Additional history exists GARDASIL-HPV IMMUNIZATION SERIES Aged Out No longer eligible based on patient's age to complete this topic Hepatitis B Aged Out No longer eligi ble based on patient's age to complete this topic MENINGOCOCCAL (MENACTRA/MENVEO) Aged Out No longer eligible based on patient's age to complete this topic documented as of this encounter Medical Devices Implanted Type Area Bar Captain Device Identifier Shelf Expiration Date Model / Serial / Lot Mesh Plug Prefix [id number] [id number] - [id number] Implanted:Qty: 1 on 06/17/2016 by Nehemiah Guevara DO at OR [facility] Left: Groin CR BARD : DAVOL 04/07/2019 [id number] / / [id number] Prime Fenestrated Screw Implanted:Qty: 4 on 12/28/2020 by Nehemiah Neal III, MD at OR [facility] N/A: Back 12/28/[id number] / / Prime Fenestrrated Screw Implanted:Qty: 6 on 12/28/2020 by Nehemiah Neal III, MD at OR [facility] N/A: Back 12/28/[id number] / / Description:VIPER PRIME X TA B 7 X 50 MM TI Screw Set Sng Inner [id number] - [id number] Implanted:Qty: 10 on 12/28/2020 by Nehemiah Neal III, MD at OR [facility] N/A: Back JNJ : [employer] 12/28/2021 [id number] / / Roxi Implanted:Qty: 2 on 12/28/2020 by Nehemiah Neal III, MD at OR [facility] N/A: Back 12/28/2021 [id number] / / Description:VIPER2 STRAIGHT ROXI 20 MM COCR Patch Hernia Ventralex l - [id number] Implanted:Qty: 1 on 01/14/2023 by Kashif Deal MD at OR [facility] N/A: Abdomen CR BARD : DAVOL 07/05/2024 [id number] / / [id number] documented as of this encounter Procedures Procedure Name Priority Date/Time Associated Diagnosis Comments [facility] DUPLEX CAROTID BILAT Routine 01/21/2024 12:32 PM EDT Nonrheumatic aortic valve stenosis Coronary artery disease of [place] artery of [place] heart with stable angina pectoris (HCC) ALIE (obstructive sleep apnea) documented in this encounter Results * [facility] DUPLEX CAROTID BILAT (01/21/2024 12:32 PM EDT) Anatomical Region Laterality Modality Neck, Vascular Ultrasound Narrative 01/21/2024 1:47 PM EDT VASCULAR LAB RESULTS DATE OF EXAM: 01/21/24 PRESENTING CONDITIONS: PreOp PHYSICIAN REPORT Carotid Artery Duplex Examination Immediately before proceeding with the vascular lab procedure reported below, the identity of the patient, the correct exam and the correct procedural site were verified. Murphy scale and color flow Doppler imaging was performed for evaluation of the right carotid artery. Duplex examination of the right carotid artery identifies atherosclerotic plaque at the carotid bifurcation. The plaque is echogenic and appears to have an irregular surface. Color Doppler imaging was performed for evaluation of the right carotid bifurcation. Spectral analysis of the right internal carotid artery demonstrates peak systolic velocities of 63 cm/sec. Maximum end diastolic velocities are 19 cm/sec.. Peak right common carotid velocity is 40 cm/sec. The right internal carotid to common carotid ratio is 1.5 The right external carotid artery has a peak velocity of 61 centimeters per second. Murphy scale and color flow Doppler imaging was performed for the evaluation of the left carotid artery. Duplex examination of the left carotid artery identifies atherosclerotic plaque at the carotid bifurcation. The plaque is echogenic and appears to have an irregular surface. Color Doppler imaging was performed for the evaluation of the left carotid bifurcation. Spectral analysis of the left internal carotid artery demonstrates peak systolic velocities of 56 cm/sec. Maximum end diastolic velocities are 18 cm/sec. Peak left common carotid velocity is 40 cm/sec. The left internal carotid to common carotid ratio is 1.4. The left external carotid artery has a peak velocity of 53 centimeters per second. The right vertebral artery demonstrates antegrade flow. The left vertebral artery demonstrates antegrade flow. Impression: Right carotid artery duplex examination indicates evidence of less than 50% stenosis of the internal carotid artery. Left carotid artery duplex examination indicates evidence of less than 50% stenosis of the internal carotid artery. 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) Nonrheumatic aortic valve stenosis Aortic valve disorders Nonrheumatic aortic valve stenosis Aortic valve disorders Coronary artery disease of [place] artery of [place] heart with stable angina pectoris (HCC) ALIE (obstructive sleep apnea) Obstructive sleep apnea (adult) (pediatric) Nonrheumatic aortic valve stenosis Aortic valve disorders Coronary artery disease of [place] artery of [place] heart with stable angina pectoris (HCC) documented in this encounter Advance Directives Latest Code Status on File Code Status Date Activated Date Inactivated Comments Full Code 01/14/2023 7:30 AM 01/14/2023 2:06 PM This or aury reflects the patients wishes and were consensually agreed upon. Question Answer Comments Discussion of Advance Directives occurred with: Patient Code Status History Code Status Date Activated Date Inactivated Comments Full Code 12/27/2020 12:48 AM 12/30/2020 10:25 PM Question Answer Comments Discussion of Advance Directives occurred with: Not Discussed Does the patient have a Living Will? No Does the patient have Health Care Power of Support Associate? No Full Code 08/01/2012 8:30 PM 08/05/2012 10:51 PM Th is order reflects the patients wishes and were consensually agreed upon. Question Answer Comments Discussion of Advance Directives occurred with: Not Discussed Care Teams Culinary Worker Relationship Specialty Start Date End Date Winston Luna MD [address] [place] [address] PCP - General 07/08/1999 documented as of this encounter
--- OUTSIDE RECORDS SUMMARY | 2024-02-09 13:13 | External Medical Summary ---
Author Name Unknown Address Unknown Organization K01:LABORATORY [facility] - [address] [place] [address] Laboratory Report Ordering Provider Test Date Status IRASEMA NORMAN 01/26/2024 08:19:27 Final Observation Date Value Abnormality Reference (Units ) Status BUN 01/26/2024 08:19:27 12 6-20 (mg/dL) Final Creatinine 01/26/2024 08:19:27 0.7 0.6-1.2 (mg/dL) Final Glomerular filtration rate/1.73 sq M.predicted [Volume Rate/Area] in Serum, Plasma or Blood by Creatinine-based formula (CKD-EPI) 01/26/2024 08:19:27 >90 >=60 (mL/min) Final eGFR is calculated based on the CKD-EPI 2020 equation Sodium 01/26/2024 08:19:27 137 135-146 (m mol/L) Final Potassium 01/26/2024 08:19:27 4.4 3.5-5.1 (m mol/L) Final Cl 01/26/2024 08:19:27 102 98-107 (mm ol/L) Final CO2 01/26/2024 08:19:27 23 22-32 (mmo l/L) Final Anion gap 01/26/2024 08:19:27 12 7-15 (mmol /L) Final Glucose 01/26/2024 08:19:27 241 Above high normal 70 -120 (mg/dL) Final Calcium 01/26/2024 08:19:27 9.1 8.4-10.2 ( mg/dL) Final Performing Location LABORATORY [facility] - [address] [place] [address]
--- OUTSIDE RECORDS SUMMARY | 2024-02-09 13:13 | External Medical Summary ---
Author Name Unknown Address Unknown Organization K01:LABORATORY [facility] - [facility] [address] [facility] [place] [address] Laboratory Report Ordering Provider Test Date Status HAROON NORMANADELITA 01/26/2024 08:19:27 Final Observation Date Value Abnormality Reference (Units ) Status Retic, % (auto) 01/26/2024 08:19:27 1.87 0.80-1.90 (%) Final Reticulocytes, Absolute 01/26/2024 08:19:27 81.5 31.3-100.1 (K/uL) Final Reticulocyte fraction, immature 01/26/2024 08:19:27 18.7 2.5-20.6 (%) Final Reticulocyte HGB 01/26/2024 08:19:27 34.2 29.7-37.4 (pg) Final Performing Location LABORATORY [facility] - [address] [place] [address]
--- OUTSIDE RECORDS SUMMARY | 2024-02-09 13:13 | External Medical Summary | Summary of Care ---
Author Name Unknown Organization [facility] Address [address] [place] [address] Phone [phone] Care Team Providers Care Welt Maker Name Role Phone Winston Luna MD Primary Care Provider [phone] Encounter Details Date Type Department Care Team (Latest Contact Info) Description 01/21/2024 8:00 AM EDT - 01/21/2024 8:59 AM EDT Hospital Encounter Vascular Lab [facility] [address] [place], [place] [phone] Arrived Discharge Disposition: Home - Self Care [...] hemoglobin A1c goal of less than 8.0% ([facility]) Use as directed 4 times a day [...] of n ative artery of [place] heart with stable angina pectoris 01/21/2024 Immunosuppressed [...] mRNA, LNP-s, No Pre serve, 2-Dose Series (99dresses) 03/04/2022,06/09/2021,11/14/2020,05/2021 COVID-19, MRNA-LNP, 23-24, P F, 30 MCG/0.3 mL, 12 YRS AND ABOVE, IM ([employer]-ComirnatPrixing) 07/21/2023 Covid-19, Mrna, Lnp-s, Pf, B ivalent, 30 Mcg, IM, 12 yrs and above (99dresses) 06/26/2022 Pneumococcal Conjugate Vacc, 13 Valent (Prevnar) [...] Description 01/22/2024 1:45 PM EDT Imaging Radiology [facility], [address] [place] [address] 01/26/2024 7:30 AM EDT PulmDiagnostic Pulmonary Function Lab, [address] [place] [address] [facility], Pulm Function Room [address] [place] [address] 01/26/2024 8:30 AM EDT PulmDiagnostic Pulmonary Function Lab, [address] [address] [facility], Pulm Function Room [address] [place] [address], [place] [address] 01/26/2024 9:00 AM EDT Pre-Admission Testing Pre [facility], [address] [address] [facility], [address] [address] 01/29/2024 7:00 AM EDT Hospital Encounter OR [facility], OPERATING ROOM [facility] [address] [facility] [place] [phone] Aravind Rust MD [address] [place] [place] [address] 01/29/2024 7:00 AM EDT - 01/29/2024 1:44 PM EDT Surgery OR [facility], OPERATING ROOM [facility] [address] [facility] [place] [phone] Aravind Rust MD [address] [facility] [place], [place] [phone] CORONARY ARTERY BYPASS GRAFT USING ARTERY 1 GRAFT 02/26/2024 11:00 AM EDT Office Visit Pharmacy, [place] [address] [place] [address] [facility] [address] [place] [address] 02/26/2024 11:20 AM EDT Office Visit [facility], [place] [address] [place] [phone] Winston Luna MD [address] [place] [address] 05/12/2024 9:50 AM EDT Laboratory Laboratory, [place] [address] [place] [phone] [facility] [address] [place] [address] 05/19/2024 10:30 AM EDT Office Visit Hematology/Oncolog y [facility] [place] [address] [place] [phone] Estrella Bull MD [facility] [place] [address] 07/23/2024 1:00 PM EST Office Visit Dermatology [facility] [place] [facility] [place] [address] Tay Alejandra MD 200 [facility] [place] [address] Scheduled Procedures Name Priority Associated Diagnoses Date/Ti wi CORONARY ARTERY BYPASS GRAFT USING ARTERY 1 GRAFT 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) 01/29/2024 7:00 AM EDT CORONARY ARTERY BYPASS GRAFT ARTERIAL AND VENOUS 2 GRAFTS Nonrheumatic aortic valve stenosis Coronary artery disease of [place] artery of [place] heart with stable angina pectoris ([facility]) 01/29/2024 7:00 AM EDT ENDOSCOPY VIDEO ASSISTED HARVEST VEIN 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) 01/29/2024 7:00 AM EDT WITH REPLACEMENT AORTIC VALVE Nonrheumatic aortic valve stenosis Coronary artery disease of [place] artery of [place] heart with stable angina pectoris ([facility]) 01/29/2024 7:00 AM EDT COLONOSCOPY FLEXIBLE PROXIMAL [...] this encounter Medical Devices Implanted Type Area Returning Officer Device Identifier Shelf Expiration Date Model / Serial / Lot Mesh Plug Prefix Lg [id number] - [id number] Implanted:Qty: 1 on 06/17/2016 by Nehemiah Guevara DO at OR [facility] Left: Groin CR BARD : DAVOL 04/07/2019 [id number] / / [id number] Prime Fenestrated Screw Implanted:Qty: 4 on 12/28/2020 by Nehemiah Neal III, MD at OR [facility] N/A: Back 12/28/[id number] / / Prime Fenestrrated Screw Implanted:Qty: 6 on 12/28/2020 by Nehemiah Neal III, MD at OR [facility] N/A: Back 12/28/[id number] / / Description:VIPER PRIME X TA B 7 X 50 MM TI Screw Set Sng Inner [id number] - [id number] Implanted:Qty: 10 on 12/28/2020 by Nehemiah Neal III, MD at OR [facility] N/A: Back JNJ : [employer] 12/28/2021 [id number] / / Roxi Implanted:Qty: 2 on 12/28/2020 by Nehemiah Neal III, MD at OR [facility] N/A: Back 12/28/2021 [id number] / / Description:VIPER2 STRAIGHT ROXI 20 MM COCR Patch Hernia Ventralex l - [id number] Implanted:Qty: 1 on 01/14/2023 by Kashif Deal MD at OR [facility] N/A: Abdomen CR BARD : DAVOL 07/05/2024 [id number] / / [id number] documented as of this encounter Procedures Procedure Name Priority Date/Time Associated Diagnosis Comments VASC VEIN MAP BYPASS GRAFT PREOP EVAL Routine 01/21/2024 12:35 PM EDT Nonrheumatic aortic valve stenosis Encounter for other preprocedural examination documented in this encounter Results * VASC VEIN MAP BYPASS GRAFT PREOP EVAL (01/21/2024 12:35 PM EDT) Anatomical Region Laterality Modality Extremity, Vascular Ultrasound Narrative 01/21/2024 1:47 PM EDT VASCULAR LAB RESULTS DATE OF EXAMINATION: 01/21/24 INDICATION: Pre op vein map LOWER EXTREMITY VENOUS DUPLEX FOR PREOP VEIN MAPPING Immediately before proceeding with the vascular lab procedure below, the identity of the patient, the correct exam and the correct procedural site were verified. Murphy scale, color flow and spectral doppler were performed for this examination. Lower extremity great saphenous vein examination with duplex imaging was conducted for preoperative mapping prior to surgery. Right great saphenous vein is patent with normal venous flow with the following size measurements: Proximal thigh 5.58 mm Mid-thigh 4.25 mm Distal thigh 4.35 mm Right knee 3.70 mm Proximal calf 3.70 mm Mid-calf 3.45 mm Right ankle 3.85 mm Left great saphenous vein is patent with normal venous flow with the following size measurements: Proximal thigh 5.04 mm Mid-thigh 4.05 mm Distal thigh 3.95 mm Left knee 3.55 mm Proximal calf 3.65 mm Mid-calf 4.15 mm Left ankle 3.85 mm CONCLUSION: Patent right great saphenous vein with size measurements as noted., Patent left great saphenous vein with size measurements as noted. Aravind CAMPBELL VASCULA R documented in this encounter Visit Diagnoses Diagnosis Coronary artery disease of [place] artery of [place] heart with stable angina pectoris (HCC)- Primary Nonrheumatic aortic valve stenosis Aortic valve disorders Encounter for other preprocedural examination Nonrheumatic aortic valve stenosis Aortic valve disorders Coronary artery disease of [place] artery of [place] heart with stable angina pectoris (HCC) documented [...] the patient have Health Care Power of Electrotype Servicer? No Full Code 08/01/2012 8:30 PM 08/05/2012 10:51 PM Th is order reflects the patients wishes and were consensually agreed upon. Question Answer Comments Discussion of Advance Directives occurred with: Not Discussed Care Teams Welt Maker Relationship Specialty Start Date End Date Winston Luna MD [address] [place] [address] PCP - General 07/08/1999 documented as of this encounter
--- OUTSIDE RECORDS SUMMARY | 2024-02-09 13:13 | External Medical Summary ---
Author Name Unknown Address Unknown Organization K01:[facility] [place] [address] [place] [address] Laboratory Report Ordering Provider Test Date Status IRASEMA NORMAN 01/26/2024 08:19:27 Final Observation Date Value Abnormality Reference (Units ) Status WBC, Total 01/26/2024 08:19:27 77.90 Above upper panic limits 4.00-10.80 (K/uL) Final RBC 01/26/2024 08:19:27 4.36 4.50-5.25 (M/uL) Final Hemoglobin 01/26/2024 08:19:27 13.8 Below low normal 14.0-16.8 (g/dL) Final Anemia reflex testing trigge rs on a HGB < 12.0 for Females and HGB < 13.0 for Males in accordance with the WHO Anemia Guidelines
Anemia reflex testing triggers on a HGB < 12.0 for Females and HGB < 13.0 for Males in accordance with the WHO Anemia Guidelines HCT 01/26/2024 08:19:27 42.8 40.0-48.4 (%) Final MCV 01/26/2024 08:19:27 98.2 82.0-99.5 (fL) Final MCH 01/26/2024 08:19:27 31.7 27.0-34.0 (pg) Final MCHC 01/26/2024 08:19:27 32.2 32.0-36.0 (g/dL) Final RDW 01/26/2024 08:19:27 14.2 11.5-15.5 (%) Final Platelets 01/26/2024 08:19:27 107 Below low normal 140 -400 (K/uL) Final MPV 01/26/2024 08:19:27 10.9 6.6-11.1 ( fL) Final Nucleated erythrocytes/100 leukocytes [Ratio] in Blood by Automated count 01/26/2024 08:19:27 0 <=0 (/100 WBCs) Final Performing Location [facility]ORY [facility] [place] [address] [facility] [address]
--- OUTSIDE RECORDS SUMMARY | 2024-02-09 13:13 | External Medical Summary ---
Author Name Unknown Address Unknown Organization K01:[facility] [place] [address] [place] [address] Laboratory Report Ordering Provider Test Date Status IRASEMA NORMAN 01/26/2024 08:19:27 Final Observation Date Value Abnormality Reference (Units ) Status HbA1C 01/26/2024 08:19:27 7.5 Above high normal 4. 0-5.6 (%) Final The use of HbA1c to monitor glycemic status is based on normal hemoglobin and HbA composition. This test should not be used in patients with abnormal hemoglobin that affects the half life of the red blood cell or the in vivo glycation rates. Glucose, estimated average 01/26/2024 08:19:27 169 Above high normal <126 (mg/dL) Roel starkey Performing Location [facility]ORY [facility] [place] [address] [place] [address]
--- OUTSIDE RECORDS SUMMARY | 2024-02-09 13:13 | External Medical Summary ---
Author Name Unknown Address Unknown Organization K01:[facility] [place] [address] [place] [address] Laboratory Report Ordering Provider Test Date Status IRASEMA NORMAN 01/26/2024 08:19:00 Final Is this for Pre-Surgical Adelaida ting (i.e.desired expiration date 30 days from collection)?\X09\
Yes

Has this patient been transfused or within the last 3 months?\X09\
No

What is the Location of the surgery?\X09\
[facility]

What is the Date of the surgery?\X09\01/29/2024 Observation Date Value Abnormality Reference (Units ) Status ABO 01/26/2024 08:19:00 A Final RH 01/26/2024 08:19:00 Positive Final RED BLOOD CELL ANTIBODY SCREEN 01/26/2024 08:19:00 Negative Final SPECIMEN EXPIRATION DATE 01/26/2024 08:19:00 02/01/2024 23:59 Final Performing Location [facility] - [address] [place] [address]
--- OUTSIDE RECORDS SUMMARY | 2024-02-09 13:13 | External Medical Summary ---
Author Name Unknown Address Unknown Organization K01:[facility] [place] [address] [place] [address] Laboratory Report Ordering Provider Test Date Status IRASEMA NORMAN 01/26/2024 08:19:27 Final Observation Date Value Abnormality Reference (Units ) Status Iron 01/26/2024 08:19:27 83 45-176 (ug /dL) Final Iron-binding capacity 01/26/2024 08:19:27 291 250-425 (ug/dL) Final Transferrin Sat % 01/26/2024 08:19:27 29 15 -55 (%) Final Performing Location LABORATORY C - [address] [place] [address]
--- OUTSIDE RECORDS SUMMARY | 2024-02-09 13:13 | External Medical Summary ---
Author Name Unknown Address Unknown Organization K01:[facility] [place] [address] [place] [address] Laboratory Report Ordering Provider Test Date Status IRASEMA NORMAN 01/26/2024 08:19:27 Final Observation Date Value Abnormality Reference (Units ) Status Ferritin 01/26/2024 08:19:27 66 30-400 (ng /mL) Final Performing Location LABORATORY [facility] - [address] [place] [address]
--- OUTSIDE RECORDS SUMMARY | 2024-02-09 13:13 | External Medical Summary ---
Author Name Unknown Address Unknown Organization K01:[facility] [place] [address] [facility] [address] Laboratory Report Ordering Provider Test Date Status IRASEMA NORMAN 01/26/2024 08:19:27 Final Observation Date Value Abnormality Reference (Units) Status Color of Urine by Auto 01/26/2024 08:19:27 Light Yellow Colorless, Light Yellow, Yellow, Dark Yellow Final Clarity, Urine 01/26/2024 08:19:27 Clear Clear Final Glucose [Mass/volume] in Urine by Automated test strip 01/26/2024 08:19:27 >=1000 Abnormal Negative (mg/dL) Final Bilirubin.total [Presence] in Urine by Automated test strip 01/26/2024 08:19:27 Negative Negative Final Ketones [Mass/volume] in Urine by Automated test strip 01/26/2024 08:19:27 Negative Negative (mg/dL) Final Specific gravity, Urine 01/26/2024 08:19:27 1.032 Above high normal 1.003-1.030 Final Hemoglobin [Presence] in Urine by Automated test strip 01/26/2024 08:19:27 Negative Negative Final pH, Urine 01/26/2024 08:19:27 6.5 5.0-7.5 (Units) Final Protein [Mass/volume] in Urine by Automated test strip 01/26/2024 08:19:27 Negative Negative (mg/dL) Final Urobilinogen [Mass/volume] in Urine by Automated test strip 01/26/2024 08:19:27 Normal Normal (mg/dL) Final Nitrite [Presence] in Urine by Automated test strip 01/26/2024 08:19:27 Negative Negative Final Leukocyte esterase [Presence] in Urine by Automated test strip 01/26/2024 08:19:27 Negative Negative Final Annotation Comment 01/26/2024 08:19:27 Final Screen negative - Microscopi c not performed. Performing Location LABORATORY [facility] - [address] [facility] [address]
--- OUTSIDE RECORDS SUMMARY | 2024-02-09 13:13 | External Medical Summary ---
Author Name Unknown Address Unknown Organization K01:[facility]ORY [facility] [place] [address] [place] [address] Laboratory Report Ordering Provider Test Date Status JENNIFER NORMANSIMON 01/26/2024 08:19:27 Final Observation Date Value Abnormality Reference (Units ) Status Albumin 01/26/2024 08:19:27 4.5 3.8-5.0 (g/dL) Final AST (Aspartate aminotransferase) 01/26/2024 08:19:27 22 10-50 (U/L) Final Alk Phos 01/26/2024 08:19:27 91 35-130 (U/L) Final ALT (Alanine aminotransferase) 01/26/2024 08:19:27 24 10-50 (U/L) Final Bilirubin, Total 01/26/2024 08:19:27 0.9 <=1.2 (mg/dL) Final Bilirubin, Direct 01/26/2024 08:19:27 0.2 0.0-0.3 (mg/dL) Final Protein 01/26/2024 08:19:27 6.2 6.0-8.3 (g/dL) Final Performing Location LAB[facility]ATORY [facility] [place] - [address] [place] [address]
--- OUTSIDE RECORDS SUMMARY | 2024-02-09 13:14 | External Medical Summary | Summary of Care ---
Author Name Unknown Organization [facility] Address [address] [place] [address] Phone [phone] Care Team Providers Care Stage Hand Name Role Phone Winston Luna MD Primary Care Provider [phone] Reason for Referral * Evaluate & Treat - Unlimited Visits (Within 3 days (urgent)) - Authorized Specialty Diagnoses / Procedures Referred By Marcelle silva Referred To Contact Cardiovascular Surgery / Cardiothoracic Surgery Diagnoses Nonrheumatic aortic valve stenosis Coronary artery disease of chickaloon artery with stable angina pectoris, unspecified whether chickaloon or transplanted heart (HCC) Marvel Quiroz MD [address] [place] [address] Referral ID Status Reason Start Date Expiration Date Visits Requested Visits Authorized [id number] Authorized Specialty Services Required 01/15/2024 999 999 Question Answer Referral Priority Within 3 days (urgent) Where should this appointment be scheduled? [facility] Does your patient require surgical evaluation and/or treatment for known heart disease? Yes Comments Moderate to severe calcific aortic stenosis with coronary angiography on 01/15/2024 demonstrating severe three-vessel disease Reason for Visit * Reason Onset Date Comments Advice 01/15/2024 Encounter Details Date Type Department Care Team (Late st Contact Info) Description 01/15/2024 Telephone Cardiology, [facility] [address] [place] [address] Marvel Quiroz MD [address] [place] [address] Advice Allergies Active Allergy Reactions Criticality Noted Date Comments Amoxicillin Nausea/vomiting Medium 06/30/2018 documented as of this encounter (statuses as of 01/15/2024) Medications Medication Sig Dispensed Refills Start Date End Date Status MULTI-VITAMIN DAILY PO TABS Take by mouth . 0 Active Blood Glucose Monitoring Suppl ([employer] ULTRA SYSTEM) w/Device KITIndications:Type 2 diabetes mellitus [...] Additional Information Patient not taking.Reported on 12/15/2023 documented as of this encounter (statuses as of 01/15/2024) Active Problems Problem Noted Date Diagnosed Date Immunosuppressed status 12/03/2022 Nonrheumatic aortic valve stenosis [...] as of this encounter (statuses as of 01/15/2024) Resolved Problems Problem Noted Date Diagnosed Date [...] as of this encounter (statuses as of 01/15/2024) Immunizations Name Administration Dates Next Due COVID-19 mRNA, LNP-s, No Pre serve, 2-Dose Series ([employer]) 03/04/2022,06/09/2021,11/14/2020,0205/2021 COVID-19, MRNA-LNP, 23-24, P F, 30 MCG/0.3 mL, 12 YRS AND ABOVE, IM ([employer]Comir[employer]) 07/21/2023 Covid-19, Mrna, Lnp-s, Pf, B ivalent, [...] encounter Miscellaneous Notes * Telephone Encounter - Marvel Qiuroz MD - 01/15/2024 9:44 AM EDT 68-year-old male with moderate to severe aortic stenosis with recent symptoms consistent with angina referred for coronary angiography on 01/15/2024 at [facility]. Coronary angiography demonstrated severe multivessel coronary disease. Will place CV surgical evaluation contact to expedite appointment documented in this encounter Plan of Treatment Upcoming Encounters Date Type Department Care Team (Late st Contact Info) Description 01/21/2024 10:00 AM EDT Office Visit Cardiothoracic Surg [facility] [address] [place] [address] Aravind Rust MD [address] [place] [address] 02/26/2024 11:00 AM EDT Office Visit Pharmacy, [place] [address] [place] [address] [facility] [address] [place] [address] 02/26/2024 11:20 AM EDT Office Visit Family [facility], [place] [address] [facility] [place] [place] [phone] Winston Luna MD [address] [place] [facility] [address] 05/12/2024 9:50 AM EDT Laboratory Laboratory, [place] [address] [facility] [place] [phone] [facility] [address] [place] [address] 05/19/2024 10:30 AM EDT Office Visit Hematology/Oncology [facility] [address] [facility] [place] [phone] Estrella Bull MD [address] [facility] [place] [address] 07/23/2024 1:00 PM EST Office Visit Dermatology [facility] [address] [facility] [place] [address] Tay Alejandra MD [address] [facility] [place] [address] Scheduled Procedures Name Priority Associated Diagnoses Date/Ti me COLONOSCOPY FLEXIBLE PROXIMAL DIAGNOSTIC Recall History of colon polyps Scheduled Referrals Name Type Priority Associated Diagnoses Orde r Schedule CARDIOVASCULAR SURGERY REFERRAL OP Referral Within 3 days (urgent) Nonrheumatic aortic valve stenosis Coronary artery disease of chickaloon artery with stable angina pectoris, unspecified whether chickaloon or transplanted heart (HCC) Ordered: 01/15/2024 Health Maintenance Due Date Last Done Comments [...] Additional history exists Colorectal Cancer Screening 09/27/2025 Lipid Panel 11/23/2028 11/24/2023, 0901/2023, 12/03/2022, Additional history exists Pneumococcal Vaccine: 65+ Years Completed 06/28/2020, 06/30/2017, [...] this encounter Medical Devices Implanted Type Area Sheet Metal Worker Supervisor Device Identifier Shelf Expiration Date Model / Serial / Lot Mesh Plug Prefix [id number] [id number] - [id number] Implanted:Qty: 1 on 06/17/2016 by Nehemiah Guevara DO at OR [facility] Left: Groin CR BARD : DAVOL 04/07/2019 [id number] / / [id number] Prime Fenestrated Screw Implanted:Qty: 4 on 12/28/2020 by Nehemiah Neal III, MD at OR [facility] N/A: Back 12/28/2021 [id number] / / Prime Fenestrrated Screw Implanted:Qty: 6 on 12/28/2020 by Nehemiah Neal III, MD at OR [facility] N/A: Back 12/28/[id number] / / Description:VIPER PRIME X TA B 7 X 50 MM TI Screw Set Sng Inner [id number] - [id number] Implanted:Qty: 10 on 12/28/2020 by Nehemiah Neal III, MD at [place] [facility] N/A: Back JNJ : [employer] 12/28/2021 [id number] / / [id number] Implanted:Qty: 2 on 12/28/2020 by Nehemiah Neal III, MD at OR [facility] N/A: Back 12/28/2021 [id number] / / Description:VIPER2 STRAIGHT JUNITO 20 MM COCR Patch Hernia Ventralex l - [id number] Implanted:Qty: 1 on 01/14/2023 by Kashif Deal MD at OR [facility] N/A: Abdomen CR BARD : DAVOL 07/05/2024 [id number] / / [id number] documented as of this encounter Visit Diagnoses Diagnosis Nonrheumatic aortic valve stenosis- Primary Aortic valve disorders Coronary artery disease of chickaloon artery with stable angina pectoris, unspecified whether chickaloon or transplanted heart (HCC) documented in this encounter Advance Directives [...] the patient have Health Care Power of Public Transit Bus Driver? No Full Code 08/01/2012 8:30 PM 08/05/2012 10:51 PM Th is order reflects the patients wishes and were consensually agreed upon. Question Answer Comments Discussion of Advance Directives occurred with: Not Discussed Care Teams Stage Hand Relationship Specialty Start Date End Date Winston Luna MD [address] [place] [address] PCP - General 07/08/1999 documented as of this encounter
--- OUTSIDE RECORDS SUMMARY | 2024-02-09 13:14 | External Medical Summary | Summary of Care ---
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 [facility] Does your patient require surgical evaluation and/or treatment for known heart disease? Yes Comments Moderate to severe calcific aortic stenosis with coronary angiography on 01/15/2024 demonstrating severe three-vessel disease Reason for Visit * Reason Onset Date Comments Advice 01/15/2024 Referral Requested by Specialist 01/15/2024 Encounter Details Date Type Department Care Team (Late st Contact Info) Description 01/15/2024 Telephone Cardiology, [facility] [address] [place] [address] Marvel Quiroz MD [address] [place] [address] Advice; Referral Requested by Specialist Allergies Active Allergy Reactions Criticality Noted Date Comments Amoxicillin Nausea/vomiting Medium 06/30/2018 documented as of this encounter (statuses as of 01/15/2024) Medications Medication Sig Dispensed Refills Start Date End Date Status MULTI-VITAMIN DAILY PO TABS Take by mouth . 0 Active Blood Glucose Monitoring Suppl ([employer] ULTRA SYSTEM) w/Device KITIndications:Type 2 diabetes mellitus [...] mRNA, LNP-s, No Pre serve, 2-Dose Series ([employer]) 03/04/2022,06/09/2021,11/14/2020,05/2021 COVID-19, MRNA-LNP, 23-24, P F, 30 MCG/0.3 mL, 12 YRS AND ABOVE, IM ([employer]) 07/21/2023 Covid-19, Mrna, Lnp-s, Pf, B ivalent, [...] encounter Miscellaneous Notes * Telephone Encounter - Kleber Lao OSA - 01/15/2024 1:58 PM EDT Please assist patient with an gopi/stat Referral appt per Dr. Quiroz. Thank you. * Telephone Encounter - Marvel Quiroz MD - 01/15/2024 9:44 AM EDT 68-year-old male with moderate to severe aortic stenosis with recent symptoms consistent with angina referred for coronary angiography on 01/15/2024 at [facility]. Coronary angiography demonstrated severe multivessel coronary disease. Will place CV surgical evaluation contact to expedite appointment documented in this encounter Plan of Treatment Upcoming Encounters Date Type Department Care Team (Late st Contact Info) Description 01/21/2024 10:00 AM EDT Office Visit Cardiothoracic Surg [facility] [place] [address] [place] [address] Aravind Rust MD [address] [place] [address] 02/26/2024 11:00 AM EDT Office Visit Pharmacy, [place] [address] [place] [address] [facility] [address] [place] [address] 02/26/2024 11:20 AM EDT Office Visit Family [facility] [place] [address] [place] [phone] Winston Luna MD [address] [place] [address] 05/12/2024 9:50 AM EDT Laboratory Laboratory, [place] [address] [place] [phone] [facility] [address] [place] [address] 05/19/2024 10:30 AM EDT Office Visit Hematology/Oncology [facility] [address] [facility] [place] [phone] Estrella Bull MD [address] [facility] [address] 07/23/2024 1:00 PM EST Office Visit Dermatology [facility] [address] [facility] [place] [address] Tay Alejandra MD [address] [facility] [place] [address] Scheduled Procedures Name Priority Associated Diagnoses Date/Ti me COLONOSCOPY FLEXIBLE PROXIMAL DIAGNOSTIC Recall History of colon polyps Scheduled Referrals Name Type Priority Associated Diagnoses Orde r Schedule CARDIOVASCULAR SURGERY REFERRAL OP Referral Within 3 days (urgent) Nonrheumatic aortic valve stenosis 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, unspecified whether nome or transplanted heart (HCC) Ordered: 01/15/2024 Health [...] Cancer Screening 09/27/2025 Lipid Panel 11/23/2028 11/24/2023, 01/2023, 12/03/2022, Additional history exists Pneumococcal Vaccine: 65+ [...] this encounter Medical Devices Implanted Type Area Plastic Machine Operator Device Identifier Shelf Expiration Date Model / Serial / Lot Mesh Plug Prefix Lg [id number] - [id number] Implanted:Qty: 1 on 06/17/2016 by Nehemiah Guevara DO at OR [facility] Left: Groin CR BARD : DAVOL 04/07/2019 [id number] / / [id number] Prime Fenestrated Screw Implanted:Qty: 4 on 12/28/2020 by Nehemiah Neal III, MD at OR [facility] N/A: Back 12/28/[id number] / / Prime Fenestrrated Screw Implanted:Qty: 6 on 12/28/2020 by Nehemiah Neal III, MD at OR [facility] N/A: Back 12/28/2021770-837 / / Description:VIPER PRIME X TA B 7 X 50 MM TI Screw Set Sng Inner [id number] - [id number] Implanted:Qty: 10 on 12/28/2020 by Nehemiah Neal III, MD at OR [facility] N/A: Back JNJ : [employer] 12/28/2021 [id number] / / Roxi Implanted:Qty: 2 on 12/28/2020 by Nehemiah Neal III, MD at OR [facility] N/A: Back 12/28/2021 1967-89- / / Description:VIPER2 STRAIGHT ROXI 20 MM COCR Patch Hernia Ventralex l - [id number] Implanted:Qty: 1 on 01/14/2023 by Kashif Deal MD at OR [facility] N/A: Abdomen CR BARD : DAVOL 07/05/2024 [id number] / / [id number] documented as of this encounter Visit Diagnoses Diagnosis Nonrheumatic aortic valve stenosis- Primary Aortic valve disorders 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 No Full Code 08/01/2012 8:30 PM 08/05/2012 10:51 PM Th is order reflects the patients wishes and were consensually agreed upon. Question Answer Comments Discussion of Advance Directives occurred with: Not Discussed Care Teams Sewage Treatment Plant Operator Relationship Specialty Start Date End Date Winston Luna MD [address] [place] [address] PCP - General 07/08/1999 documented as of this encounter
--- OUTSIDE RECORDS SUMMARY | 2024-02-09 13:14 | External Medical Summary | Summary of Care ---
Author Name Unknown Organization [facility] Address [address] [place] [address] Phone [phone] Care Team Providers Care Exercise Planner Name Role Phone Winston Luna MD Primary Care Provider [phone] Encounter Details Date Type Department Care Team (Late st Contact Info) Description 01/15/2024 Result Scan Unspecified Department Marvel Quiroz MD [address] [place] [id number] <No scans attached> Allergies Active Allergy Reactions Criticality Noted Date Comments Amoxicillin Nausea/vomiting Medium 06/30/2018 documented as of this encounter (statuses as of 01/16/2024) Medications Medication Sig Dispensed Refills Start Date End Date Status MULTI-VITAMIN DAILY PO TABS Take by mouth . 0 Active Blood Glucose Monitoring Suppl (ONETOUCH ULTRA SYSTEM) w/Device KITIndications:Type 2 diabetes mellitus with hemoglobin A1c goal of less than 8.0% ([facility]) Use as directed 4 times a day [...] less than 8.0% ([facility]) Use once daily E11.9 1 Kit 0 [...] as of this encounter (statuses as of 01/16/2024) Active Problems Problem Noted Date Diagnosed Date [...] as of this encounter (statuses as of 01/16/2024) Resolved Problems Problem Noted Date Diagnosed Date [...] as of this encounter (statuses as of 01/16/2024) Immunizations Name Administration Dates Next Due COVID-19 mRNA, LNP-s, No Pre serve, 2-Dose Series ([employer]) 03/04/2022,06/09/2021,11/14/2020,05/2021 COVID-19, MRNA-LNP, 23-24, P F, 30 MCG/0.3 mL, 12 YRS AND ABOVE, IM ([facility]) 07/21/2023 Covid-19, Mrna, Lnp-s, Pf, B ivalent, [...] 10:00 AM EDT Office Visit Cardiothoracic Surg [facility] [address] [place] [address] Aravind Rust MD [address] [place] [address] 02/26/2024 11:00 AM EDT Office Visit Pharmacy, [place] [address] [place] [address] [facility] [address] [place] [address] 02/26/2024 11:20 AM EDT Office Visit Family Practice, [place] [address] [place] [address] Winston Luna MD [address] [place] [address] 05/12/2024 9:50 AM EDT Laboratory Laboratory, [place] [address] [place] [address] [facility] [address] [place] [address] 05/19/2024 10:30 AM EDT Office Visit Hematology/Oncology [facility] [address] [facility] [place] [address] Estrella Bull MD 200 [facility] [place] [address] 07/23/2024 1:00 PM EST Office Visit Dermatology [facility] [address] [facility] [place] [address] Tay Alejandra MD 200 [facility] [place] [address] Scheduled Procedures Name Priority Associated Diagnoses Date/Ti [...] this encounter Medical Devices Implanted Type Area Truck Loader Overhead Crane Device Identifier Shelf Expiration Date Model / Serial / Lot Mesh Plug Prefix Lg [id number] - [id number] Implanted:Qty: 1 on 06/17/2016 by Nehemiah Guevara DO at OR [facility] Left: Groin CR BARD : DAVOL 04/07/2019 [id number] / / [id number] Prime Fenestrated Screw Implanted:Qty: 4 on 12/28/2020 by Nehemiah Neal III, MD at OR [facility] N/A: Back 12/28/20217-60-967 / / Prime Fenestrrated Screw Implanted:Qty: 6 on 12/28/2020 by Nehemiah Neal III, MD at OR [facility] N/A: Back 12/28/20217-70-016 / / Description:VIPER PRIME X TA B 7 X 50 MM TI Screw Set Sng Inner [id number] - [id number] Implanted:Qty: 10 on 12/28/2020 by Nehemiah Neal III, MD at OR [facility] N/A: Back JNJ : ETH[employer]ON CARDIOVATIONS 12/28/2021 [id number] / / Roxi Implanted:Qty: 2 on 12/28/2020 by Nehemiah Neal III, MD at OR [facility] N/A: Back 12/28/2021 1967-89-200 / / Description:VIPER2 STRAIGHT ROXI 20 MM COCR Patch Hernia Ventralex l - [id number] Implanted:Qty: 1 on 01/14/2023 by Kashif Deal MD at OR [facility] N/A: Abdomen CR BARD : DAVOL 07/05/2024 [id number] / / [id number] documented as of this encounter Procedures Procedure Name Priority Date/Time Associated Diagnosis Comments CARDIAC CATH SCANNED RESULT 01/15/2024 documented in this encounter Results * CARDIAC CATH SCANNED RESULT (01/15/2024) 01/15/2024 Marvel Quiroz MD CARD CATH documented in this encounter Advance Directives Latest [...] the patient have Health Care Power of Maxillofacial Pathology? No Full Code 08/01/2012 8:30 PM 08/05/2012 10:51 PM Th is order reflects the patients wishes and were consensually agreed upon. Question Answer Comments Discussion of Advance Directives occurred with: Not Discussed Care Teams Exercise Planner Relationship Specialty Start Date End Date Winston Luna MD [address] [place] [address] PCP - General 07/08/1999 documented as of this encounter
--- OUTSIDE RECORDS SUMMARY | 2024-02-09 13:14 | External Medical Summary | Summary of Care ---
Author Name Unknown Organization [facility] Address [address] [place] [address] Phone [phone] Care Team Providers Care Bridge Maintainer Name Role Phone Winston Luna MD Primary Care Provider [phone] Encounter Details Date Type Department Care Team (Late st Contact Info) Description 01/22/2024 Telephone Cardiothoracic Surg [facility] [address] [place], [place] [phone] Shelbi Burroughs CRNP [address] [place], [place] [phone] Allergies Active Allergy Reactions Criticality Noted Date Comments Amoxicillin Nausea/vomiting Medium 06/30/2018 documented as of this encounter (statuses as of 01/22/2024) Medications Medication Sig Dispensed Refills Start Date End Date Status MULTI-VITAMIN DAILY PO TABS Take by mouth . 0 Active Blood Glucose Monitoring Suppl (Sweetie HighTOUCH ULTRA SYSTEM) w/Device KITIndications:Type 2 diabetes mellitus [...] the evening. Take before meals. 0 Active Mupirocin Calcium 2 % Nasal Ointment (Bactroban Nasal) Administer into nostril 2 times a day. For 5 days 1 Each 0 01/22/2024 Active Chlorhexidine Gluconate 4 % External Liquid Use to wash in shower for 5 days leading up to surgery 120 mL 0 01/22/2024 Active documented as of this encounter (statuses as of 01/22/2024) Active Problems Problem Noted Date Diagnosed Date Coronary artery disease of n ative artery of eyak heart with stable angina pectoris 01/21/2024 Immunosuppressed [...] mRNA, LNP-s, No Pre serve, 2-Dose Series ([email or web address]) 03/04/2022,06/09/2021,11/14/2020,05/2021 COVID-19, MRNA-LNP, 23-24, P F, 30 MCG/0.3 mL, 12 YRS AND ABOVE, IM ([facility]) 07/21/2023 Covid-19, Mrna, Lnp-s, Pf, B [...] Telephone Encounter - Shelbi Burroughs CRNP - 01/22/2024 8:25 AM EDT Called patient and let him know that nasal swab was indeterminate so we will treat as positive - 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 He said he is at the dentist right now and they will fax over clearances / information after the visit today documented in this encounter Plan of Treatment Upcoming Encounters Date Type Department Care Team (Latest Contact Info) Description 01/22/2024 1:45 PM EDT Imaging Radiology [address], [address] [place] [address] 01/26/2024 7:30 AM EDT PulmDiagnostic Pulmonary Function Lab, [address] [place] [address] [facility], Pulm Function Room [address] [place], [place] [address] [address] 01/26/2024 8:30 AM EDT PulmDiagnostic Pulmonary Function Lab, [address] [place] [address] [facility], Pulm Function Room [address] [place], [place] [address] [address] 01/26/2024 9:00 AM EDT Pre-Admission Testing Pre Surgery Center, [address] [place] [address] [facility], [address] [place] [address] 01/29/2024 7:00 AM EDT Hospital Encounter [facility], OPERATING ROOM [facility] [address] [place] [address] Aravind Rust MD [address] [place] [address] 01/29/2024 7:00 AM EDT - 01/29/2024 1:44 PM EDT Surgery [facility], OPERATING ROOM [facility], [facility] [address] [place] [address] Aravind Rust MD [address] [place], [place] [phone] CORONARY ARTERY BYPASS GRAFT USING ARTERY 1 GRAFT 02/26/2024 11:00 AM EDT Office Visit Pharmacy, [place] [address] [place] [address] [facility] [address] [place] [address] 02/26/2024 11:20 AM EDT [facility] Visit [facility] [address] [place] [address] Winston Luna MD [address] [place] [address] 05/12/2024 9:50 AM EDT Laboratory Laboratory, [place] [address] [place] [address] [facility] [address] [place] [address] 05/19/2024 10:30 AM EDT Office Visit Hematology/Oncolog y [facility] [address] [place] [address] Estrella Bull MD 200 [facility] [place] [address] 07/23/2024 1:00 PM EST Office Visit Dermatology [facility] [address] [facility] [place] [address] Tay Alejandra MD 200 [facility] [place] [address] Scheduled Procedures Name Priority Associated Diagnoses Date/Ti me CORONARY ARTERY BYPASS GRAFT USING ARTERY 1 GRAFT Nonrheumatic aortic valve stenosis Coronary artery disease of eyak artery of eyak heart with stable angina pectoris (HCC) 01/29/2024 7:00 AM EDT CORONARY ARTERY BYPASS GRAFT ARTERIAL AND VENOUS 2 GRAFTS Nonrheumatic aortic valve stenosis Coronary artery disease of eyak artery of eyak heart with stable angina pectoris (HCC) 01/29/2024 7:00 AM EDT ENDOSCOPY VIDEO ASSISTED HARVEST VEIN Nonrheumatic aortic valve stenosis Coronary artery disease of eyak artery of eyak heart with stable angina pectoris (HCC) 01/29/2024 7:00 AM EDT WITH REPLACEMENT AORTIC VALVE Nonrheumatic aortic valve stenosis Coronary artery disease of eyak artery of eyak heart with stable angina pectoris (HCC) 01/29/2024 [...] this encounter Medical Devices Implanted Type Area Laborer Heading Device Identifier Shelf Expiration Date Model / Serial / Lot Mesh Plug Prefix Lg [id number] - [id number] Implanted:Qty: 1 on 06/17/2016 by Nehemiah Guevara DO at OR [facility] Left: Groin CR BARD : DAVOL 04/07/2019 [id number] / / [id number] Prime Fenestrated Screw Implanted:Qty: 4 on 12/28/2020 by Nehemiah Neal III, MD at OR [facility] N/A: Back 12/28/2021 [id number] / / Prime Fenestrrated Screw Implanted:Qty: 6 on 12/28/2020 by Nehemiah Neal III, MD at OR [facility] N/A: Back 12/28/20217-70-250 / / Description:VIPER PRIME X TA B 7 X 50 MM TI Screw Set Sng Inner [id number] - [id number] Implanted:Qty: 10 on 12/28/2020 by Nehemiah Neal III, MD at OR [facility] N/A: Back JNJ : ETH[employer]ON CARDIOVATIONS 12/28/2021 [id number] / / Roxi Implanted:Qty: 2 on 12/28/2020 by Nehemiah Neal III, MD at OR [facility] N/A: Back 12/28/2021 1967-89- / / Description:VIPER2 STRAIGHT ROXI 20 MM COCR Patch Hernia Ventralex l - [id number] Implanted:Qty: 1 on 01/14/2023 by Kashif Deal MD at OR [facility] N/A: Abdomen CR BARD : DAVOL 07/05/2024 [id number] / / [id number] documented as of this encounter Advance Directives Latest Code Status [...] the patient have Health Care Power of Poker Room Manager? No Full Code 08/01/2012 8:30 PM 08/05/2012 10:51 PM Th is order reflects the patients wishes and were consensually agreed upon. Question Answer Comments Discussion of Advance Directives occurred with: Not Discussed Care Teams Bridge Maintainer Relationship Specialty Start Date End Date Winston Luna MD [address] [place] [address] PCP - General 07/08/1999 documented as of this encounter
--- OUTSIDE RECORDS SUMMARY | 2024-02-09 13:14 | External Medical Summary ---
Author Name Unknown Address Unknown Organization K01:[facility] [place] [address] [facility] [address] [place] [address] Laboratory Report Ordering Provider Test Date Status HAROON NORMANGLENNAOLENA 01/21/2024 11:28:35 Final Observation Date Value Abnormality Reference (Units ) Status Staphylococcus aureus methicillin resistance SCCmec [Presence] in Nose by CHERI with probe detection 01/21/2024 11:28:35 Indeterminate. Repeat testing recommended. Abnormal Negative Final null Methicillin susceptible Staphylococcus aureus DNA [Presence] in Specimen by CHERI with probe detection 01/21/2024 11:28:35 Indeterminate. Repeat testing recommended. Abnormal Negative Final null Performing Location [facility] [address] [place] [address]
--- OUTSIDE RECORDS SUMMARY | 2024-02-09 13:14 | External Medical Summary | Summary of Care ---
Author Name Unknown Organization [facility] Address [address] [place] [address] Phone [phone] Care Team Providers Care Pressure Tester Operator Name Role Phone Winston Luna MD Primary Care Provider [phone] Reason for Referral * Evaluate & Treat - Unlimited Visits (Within 3 days (urgent)) - Authorized Specialty Diagnoses / Procedures Referred By Marcelle silva Referred To Contact Cardiovascular Surgery / Cardiothoracic Surgery Diagnoses Nonrheumatic aortic valve stenosis Coronary artery disease of [place] artery with stable angina pectoris, unspecified whether [place] or transplanted heart (HCC) Marvel Qurioz MD [address] [place] [address] Referral ID Status Reason Start Date Expiration Date Visits Requested Visits Authorized [id number] Authorized Specialty Services Required 01/15/2024 999 999 [...] st Contact Info) Description 01/15/2024 Telephone Cardiology, [facility] [address] [address] Marvel Quiroz MD [address] [place] [address] Advice Allergies Active Allergy Reactions Criticality Noted Date Comments Amoxicillin Nausea/vomiting Medium 06/30/2018 documented as of this encounter (statuses as of 01/15/2024) Medications Medication Sig Dispensed Refills Start Date End Date Status MULTI-VITAMIN DAILY PO TABS Take by mouth . 0 Active Blood Glucose Monitoring Suppl (Piehole ULTRA SYSTEM) w/Device KITIndications:Type 2 diabetes mellitus [...] mRNA, LNP-s, No Pre serve, 2-Dose Series ([employer] 03/04/2022,06/09/2021,11/14/2020,0205/2021 COVID-19, MRNA-LNP, 23-24, P F, 30 MCG/0.3 mL, 12 YRS AND ABOVE, IM ([employer]) 07/21/2023 Covid-19, Mrna, Lnp-s, Pf, B ivalent, [...] Miscellaneous Notes * Telephone Encounter - Marvel Quiroz MD - 01/15/2024 9:44 AM EDT 68-year-old male with moderate to severe aortic stenosis with recent symptoms consistent with angina referred for coronary angiography on 01/15/2024 at . Coronary angiography demonstrated severe multivessel coronary disease. Will place CV surgical evaluation contact to expedite appointment documented in this encounter Plan of Treatment Upcoming Encounters Date Type Department Care Team (Late st Contact Info) Description 01/21/2024 10:00 AM EDT Office Visit Cardiothoracic Surg [facility] [address] [place] [address] Aravind Rust MD [address] [place] [address] 02/26/2024 11:00 AM EDT Office Visit Pharmacy, [place] [address] [place] [address] [facility] [address] [place] [address] 02/26/2024 11:20 AM EDT Office Visit Family [facility], [place] [address] [facility] [place] [phone] Winston Luna MD [address] [place] [facility] [place] [address] 05/12/2024 9:50 AM EDT Laboratory Laboratory, [place] [address] [facility] [place] [phone] [facility] [address] [place] [facility] [place] [address] 05/19/2024 10:30 AM EDT Office Visit Hematology/Oncology [facility] [address] [facility] [place] [address] Estrella Bull MD [address] [facility] [place] [address] 07/23/2024 1:00 PM EST Office Visit Dermatology [facility] [address] [facility] [place] [address] Tay Alejandra MD [address] [facility] [place] [address] Scheduled Procedures Name Priority Associated Diagnoses Date/Ti me COLONOSCOPY FLEXIBLE PROXIMAL DIAGNOSTIC Recall History of colon polyps Scheduled Referrals Name Type Priority Associated Diagnoses Orde r Schedule CARDIOVASCULAR SURGERY REFERRAL OP Referral Within 3 days (urgent) Nonrheumatic aortic valve stenosis Coronary artery disease of [place] artery with stable angina pectoris, unspecified whether [place] or transplanted heart (HCC) Ordered: 01/15/2024 Health [...] this encounter Medical Devices Implanted Type Area Housekeeping And Laundry Team Leader Device Identifier Shelf Expiration Date Model / Serial / Lot Mesh Plug Prefix Lg [id number] - [id number] Implanted:Qty: 1 on 06/17/2016 by Nehemiah Guevara DO at OR [facility] [address] Left: Groin CR BARD : DAVOL 04/07/2019 [id number] / / [id number] Prime Fenestrated Screw Implanted:Qty: 4 on 12/28/2020 by Nehemiah Neal III, MD at OR [facility] N/A: Back 12/28/2021 1867-60-548 / / Prime Fenestrrated Screw Implanted:Qty: 6 on 12/28/2020 by Nehemiah Neal III, MD at OR [facility] N/A: Back 12/28/202[address]-26-675 / / Description:VIPER PRIME X TA B 7 X 50 MM TI Screw Set Sng Inner [id number] - [id number] Implanted:Qty: 10 on 12/28/2020 by Nehemiah Neal III, MD at OR [facility] N/A: Back JNJ : ETHICON CARDIOVATIONS 12/28/2021 [id number] / / [id number] Implanted:Qty: 2 on 12/28/2020 by Nehemiah Neal III, MD at OR [facility] N/A: Back 12/28/2021 1967-89-200 / / Description:VIPER2 STRAIGHT JUNITO 20 MM COCR Patch Hernia Ventralex l - [id number] Implanted:Qty: 1 on 01/14/2023 by Kashif Deal MD at OR [facility] [address] N/A: Abdomen CR BARD : DAVOL 07/05/2024 [id number] / / [id number] documented as of this encounter Visit Diagnoses Diagnosis Nonrheumatic aortic valve stenosis- Primary Aortic valve disorders Coronary artery disease of [place] artery with stable angina pectoris, unspecified whether [place] or transplanted heart (HCC) documented in this [...] the patient have Health Care Power of Airplane Navigator? No Full Code 08/01/2012 8:30 PM 08/05/2012 10:51 PM Th is order reflects the patients wishes and were consensually agreed upon. Question Answer Comments Discussion of Advance Directives occurred with: Not Discussed Care Teams Pressure Tester Operator Relationship Specialty Start Date End Date Winston Luna MD [address] [place] [address] PCP - General 07/08/1999 documented as of this encounter
--- OUTSIDE RECORDS SUMMARY | 2024-02-09 13:14 | External Medical Summary | Summary of Care ---
Author Name Unknown Organization [facility] Address [address] [place] [address] Phone [phone] Care Team Providers Care Toll Lineman Name Role Phone Winston Luna MD Primary Care Provider [phone] Reason for Referral * (Within 10 days (routine)) Specialty Diagnoses / Procedures Referred By Marcelle silva Referred To Contact Aravind Rust MD [address] [place] [address] Referral ID Status Reason Start Date Expiration Date Visits Re quested Visits Authorized Question Answer Referral Priority Within 10 days (routine) Where should this appointment be scheduled? [facility] * Precert (Within 10 days (routine)) - Authorized Specialty Diagnoses / Procedures Referred By Marcelle silva Referred To Contact Radiology Diagnoses Nonrheumatic aortic valve stenosis Procedures CTA CHEST NON-CORONARY W CONTRAST Graciela Gibson PA-C [address] [facility] [place] [address] Referral ID Status Reason Start Date Expiration Date V isits Requested Visits Authorized [id number] Authorized 01/22/2024 999 999 Reason for Visit * Reason Comments NEW PATIENT * Evaluate & Treat - Unlimited Visits (Within 3 days (urgent)) - Authorized Specialty Diagnoses / Procedures Referred By Contac t Referred To Contact Cardiovascular Surgery / Cardiothoracic Surgery Diagnoses Nonrheumatic aortic valve stenosis 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, unspecified whether upper sioux or transplanted heart (HCC) Marvel Quiroz MD [address] [place] [address] Referral ID Status Reason Start Date Expiration Date Visits Requested Visits Authorized [id number] Authorized Specialty Services Required 01/15/2024 999 999 Encounter Details Date Type Department Care Team (Latest Contact Info) Description 01/21/2024 10:00 AM EDT Office Visit Cardiothoracic Surg [facility] [address] [place] [address] Aravind Rust MD [address] [place] [address] 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 0 Active Blood Glucose Monitoring Suppl ([employer] ULTRA SYSTEM) w/Device KITIndications:Type 2 diabetes mellitus with hemoglobin A1c goal of less than 8.0% ([facility]) Use as directed 4 times [...] hemoglobin A1c goal of less than 8.0% ([facility]) Use once daily E11.9 1 Kit 0 [...] as of this encounter (statuses as of 01/21/2024) Active Problems Problem Noted Date Diagnosed Date Coronary artery disease of n ative artery of upper sioux heart with stable angina pectoris 01/21/2024 Immunosuppressed [...] as of this encounter (statuses as of 01/21/2024) Resolved Problems Problem Noted Date Diagnosed Date [...] as of this encounter (statuses as of 01/21/2024) Immunizations Name Administration Dates Next Due COVID-19 mRNA, LNP-s, No Pre serve, 2-Dose Series ([employer]) 03/04/2022,06/09/2021,11/14/2020,05/2021 COVID-19, MRNA-LNP, 23-24, P F, 30 MCG/0.3 mL, 12 YRS AND ABOVE, IM ([employer]) 07/21/2023 Covid-19, Mrna, Lnp-s, Pf, B ivalent, 30 Mcg, IM, 12 yrs and above ([employer]) 06/26/2022 Pneumococcal Conjugate Vacc, 13 Valent (Prevnar) [...] Past Smokeless Tobacco: Former Snuff Quit: 02/16/2012 Tobacco Cessation:Counseling Given: Not Answered Comments:4 cans per wk x 30 years [...] Sign Reading Time Taken Comments Blood Pressure 122/60 01/21/2024 9:54 AM EDT Pulse 68 01/21/2024 9:53 AM EDT Temperature - - Respiratory Rate - - Oxygen Saturation 96% 01/21/2024 9:53 AM EDT Inhaled Oxygen Concentration - - Weight 108 kg (238 lb) 01/21/2024 9:53 AM EDT Height 174.6 cm (5' 8.75") 01/21/2024 9:53 AM ED T Body Mass Index 35.4 01/21/2024 9:53 AM EDT documented in this encounter Functional [...] as of this encounter Progress Notes * Malka Pat RN - 01/21/2024 10:53 AM EDT Patient chose a surgical date of 01/29/2024. Patient was given preoperative Cardiac Surgery booklet. Chlorhexidine wash provided and instructions given to include if staph screen is positive bactroban will be prescribed and patient will need towash with chlorhexidine 5 days prior to surgery . All questions answered at this time. Patient was instructed to avoid the following medications and foods one week prior to surgery to decrease risk for bleeding: Multivitamins, Vit E, Herbal teas and supplements, olive oil and garlic, [place] 3s and NSAIDs. Patient instructed to hold metformin the evening before and morning of surgery per Dr. Rust. 5M WALK: 5.9 2. 6.0 3. 5.8 Patient has not been to a dentist in over 1 year. He has one tooth with "a little surface cavity" per patient, denies any pain or swelling. Discussed with Dr. Rust. Patient has severe coronary symptoms with occasional chest pain at rest. Patient should try to see a dentist prior to surgery, but we will not delay surgery for a dental evaluation. Patient interested in cardiac rehab at [facility]. Malka Pat RN 01/21/2024 10:53 AM documented in this encounter Plan of Treatment Upcoming Encounters Date Type Department Care Team (Latest Contact Info) Description 01/22/2024 1:45 PM EDT Imaging Radiology [address] [place] [address] 01/26/2024 7:30 AM EDT [facility]mDiagnostic Pulmonary Function Lab, [address] [address] [place], Pulm Function Room [address] [place] [address] 01/26/2024 8:30 AM EDT [facility] Lab, [address] [place] [address] [facility], Pulm Function Room [address] [place] [address] 01/26/2024 9:00 AM EDT Pre-Admission Testing Pre Surgery Center, [address] [address] [facility], [address] [address] 01/29/2024 7:00 AM EDT Hospital Encounter OR [facility], OPERATING ROOM [facility], [facility] [address] [place] [phone] Aravind Rust MD [address] [place] [address] 01/29/2024 7:00 AM EDT - 01/29/2024 1:44 PM EDT Surgery OR [facility], OPERATING ROOM [facility], [facility] [address] [place] [phone] Aravind Rust MD [address] [place] [address] CORONARY ARTERY BYPASS GRAFT USING ARTERY 1 GRAFT 02/26/2024 11:00 AM EDT Office Visit Pharmacy, [address] [place] [address] [facility] [address] [facility], [place] [id number] 02/26/2024 11:20 AM EDT Office Visit [facility], [place] [address] [place] [facility] [place] [address] Winston Luna MD [address] [facility], [place] [id number] 05/12/2024 9:50 AM EDT Laboratory Laboratory, [place] [address] [place] [facility] [address] [facility] [address] [facility], [place] [id number] 05/19/2024 10:30 AM EDT Office Visit Hematology/Oncolog y [facility] [address] [place] [phone] Estrella Bull MD [address] [facility] [place], [place] [address] 07/23/2024 1:00 PM EST Office Visit Dermatology [facility] [address] [place] [address] Tay Alejandra MD [address] [facility] [place], [place] [address] Pending Results Name Type Priority Associated Diagnoses Date /Time VASC VEIN MAP BYPASS GRAFT PREOP EVAL Medical Imaging Routine Nonrheumatic aortic valve stenosis Encounter for other preprocedural examination 01/21/2024 12:35 PM EDT VASC DUPLEX CAROTID BILAT Medical Imaging Routine Nonrheumatic aortic valve stenosis 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 (HCC) ALIE (obstructive sleep apnea) 01/21/2024 12:32 PM EDT Scheduled Orders Name Type Priority Associated Diagnoses Orde r Schedule CTA CHEST NON-CORONARY W CONTRAST Medical Imaging Routine Nonrheumatic aortic valve stenosis Expected: 01/22/2024, Expires: 02/20/2025 CBC WITH WBC DIFFERENTIAL AND ANEMIA REFLEX WORKUP Lab Routine Nonrheumatic aortic valve stenosis Expected: 01/21/2024, Expires: 01/20/2025 BASIC METABOLIC PANEL Lab Today Nonrheumatic aortic valve stenosis Expected: 01/21/2024, Expires: 01/20/2025 CULTURE, URINE, QUANTITATIVE Lab Routine Nonrheumatic aortic valve stenosis Encounter for other preprocedural examination Other general symptoms and signs Expected: 01/21/2024, Expires: 01/20/2025 URINALYSIS, REFLEX TO MICROSCOPIC Lab Today Nonrheumatic aortic valve stenosis 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 (HCC) ALIE (obstructive sleep apnea) Type 2 diabetes mellitus with hemoglobin A1c goal of less than 8.0% (HCC) Expected: 01/21/2024, Expires: 01/20/2025 HEMOGLOBIN A1C Lab Routine Nonrheumatic aortic valve stenosis 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 (HCC) ALIE (obstructive sleep apnea) Type 2 diabetes mellitus with hemoglobin A1c goal of less than 8.0% (HCC) Expected: 01/21/2024, Expires: 01/20/2025 HEPATIC FUNCTION PANEL Lab Today Nonrheumatic aortic valve stenosis Expected: 01/21/2024, Expires: 01/20/2025 IRON SCREEN, INCLUDING TIBC Lab Today Nonrheumatic aortic valve stenosis Expected: 01/21/2024, Expires: 01/20/2025 STAPH AUREUS PCR Lab Routine Nonrheumatic aortic valve stenosis Expected: 01/21/2024, Expires: 01/20/2025 PREPARE PACKED RED BLOOD CELLS Blood Bank - Prepare Product Routine Nonrheumatic aortic valve stenosis Ordered: 01/21/2024 TYPE AND SCREEN Lab Routine Nonrheumatic aortic valve stenosis Expected: 01/21/2024, Expires: 02/20/2025 TSH Lab Routine Nonrheumatic aortic valve stenosis 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 (HCC) ALIE (obstructive sleep apnea) Type 2 diabetes mellitus with hemoglobin A1c goal of less than 8.0% (HCC) Expected: 01/21/2024, Expires: 01/20/2025 VASC VEIN MAP BYPASS GRAFT PREOP EVAL Medical Imaging Routine Nonrheumatic aortic valve stenosis Encounter for other preprocedural examination Expected: 01/21/2024, Expires: 02/20/2025 VASC DUPLEX CAROTID BILAT Medical Imaging Routine Nonrheumatic aortic valve stenosis 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 (HCC) ALIE (obstructive sleep apnea) Expected: 01/21/2024, Expires: 02/20/2025 BASIC SPIROMETRY Procedures Routine Nonrheumatic aortic valve stenosis 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 (HCC) ALIE (obstructive sleep apnea) Expected: 01/21/2024, Expires: 02/20/2025 BLOOD GAS, ARTERIAL Lab Routine Nonrheumatic aortic valve stenosis Expected: 01/21/2024, Expires: 01/20/2025 RETICULOCYTE PANEL Lab Routine Nonrheumatic aortic valve stenosis 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 (HCC) ALIE (obstructive sleep apnea) Type 2 diabetes mellitus with hemoglobin A1c goal of less than 8.0% ([facility]) Encounter for other preprocedural examination Other general symptoms and signs Expected: 01/21/2024, Expires: 01/20/2025 FERRITIN Lab Routine Nonrheumatic aortic valve stenosis 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 (HCC) ALIE (obstructive sleep apnea) Type 2 diabetes mellitus with hemoglobin A1c goal of less than 8.0% ([facility]) Encounter for other preprocedural examination Other general symptoms and signs Expected: 01/21/2024, Expires: 01/20/2025 Scheduled Procedures Name Priority Associated Diagnoses Date/Ti me CORONARY ARTERY BYPASS GRAFT USING ARTERY 1 GRAFT Nonrheumatic aortic valve stenosis 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 (HCC) 01/29/2024 7:00 AM EDT CORONARY ARTERY BYPASS GRAFT ARTERIAL AND VENOUS 2 GRAFTS Nonrheumatic aortic valve stenosis 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 (HCC) 01/29/2024 7:00 AM EDT ENDOSCOPY VIDEO ASSISTED HARVEST VEIN Nonrheumatic aortic valve stenosis 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 (HCC) 01/29/2024 7:00 AM EDT WITH REPLACEMENT AORTIC VALVE Nonrheumatic aortic valve stenosis 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 (HCC) 01/29/2024 7:00 AM EDT COLONOSCOPY FLEXIBLE PROXIMAL DIAGNOSTIC Recall History of colon polyps Scheduled Referrals Name Type Priority Associated Diagnoses Orde r Schedule BLOOD MANAGEMENT REFERRAL Referral Within 10 days (routine) Nonrheumatic aortic valve stenosis Ordered: 01/21/2024 Health Maintenance Due Date Last Done Comments [...] this encounter Medical Devices Implanted Type Area Railroad Firer Device Identifier Shelf Expiration Date Model / Serial / Lot Mesh Plug Prefix [id number] - [id number] Implanted:Qty: 1 on 06/17/2016 by Nehemiah Guevraa DO at OR [facility] Left: Groin CR BARD : DAVOL 04/07/2019 [id number] / / [id number] Prime Fenestrated Screw Implanted:Qty: 4 on 12/28/2020 by Nehemiah Neal III, MD at OR [facility] N/A: Back 12/28/2021 [id number] / / Prime Fenestrrated Screw Implanted:Qty: 6 on 12/28/2020 by Nehemiah Neal III, MD at OR [facility] N/A: Back 12/28/2021 [id number] / / Description:VIPER PRIME X TA B 7 X 50 MM TI Screw Set Sng Inner [id number] - [id number] Implanted:Qty: 10 on 12/28/2020 by Nehemiah Neal III, MD at OR [facility] N/A: Back JNJ : [employer] 12/28/2021 [id number] / / Roxi Implanted:Qty: 2 on 12/28/2020 by Nehemiah Neal III, MD at OR [facility] N/A: Back 12/28/2021 [id number] / / Description:VIPER2 STRAIGHT ROXI 20 MM COCR Patch Hernia Ventralex l - [id number] Implanted:Qty: 1 on 01/14/2023 by Kashif Deal MD at OR [facility] N/A: Abdomen CR BARD : DAVOL 07/05/2024 [id number] / / [id number] documented as of this encounter Visit Diagnoses Diagnosis 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 (HCC)- Primary Nonrheumatic aortic valve stenosis Aortic valve disorders ALIE (obstructive sleep apnea) Obstructive sleep apnea (adult) (pediatric) Type 2 diabetes mellitus with hemoglobin A1c goal of less than 8.0% (HCC) Encounter for other preprocedural examination Other general symptoms and signs 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 No Full Code 08/01/2012 8:30 PM 08/05/2012 10:51 PM Th is order reflects the patients wishes and were consensually agreed upon. Question Answer Comments Discussion of Advance Directives occurred with: Not Discussed Care Teams Toll Lineman Relationship Specialty Start Date End Date Winston Luna MD [address] [place] [address] PCP - General 07/08/1999 documented as of this encounter
[2024-02-09] MEDS ORDERED: oxyCODONE HCL IR 5 MG TAB (IMMEDIATE RELEASE) PO PRN (13:34)
[2024-02-09] MEDS: INSULIN ASPART PER UNIT CHARGE SC SCH (18:18)
--- NOTE | 2024-02-09 18:32 | Cardiology Consultation ---
Date of Consultation February 09, 2024 Assessment & Plan (1) Acute heart failure with preserved ejection fraction (HFpEF): (2) Pericardial effusion: (3) CLL (chronic lymphocytic leukemia): Plan * Patient received an additional dose of 20 mg IV furosemide in the emergency department having received 80 mg orally at home earlier today * Given small circumferential pericardial effusion, will reassess volume status clinically tomorrow before initiating next dose. * Chronic leukocytosis noted consistent with patient's history of CLL. * Continue aspirin, amiodarone, metoprolol, potassium chloride, rosuvastatin, Flomax. Agree with Lovenox 40 mg subcu daily in the a.m. for DVT prophylaxis. * Case discussed with both Dr Pandya of emergency medicine as well as Jelena Johnson PA-C of the [facility] service for the purpose of coordination of care. I spent a total of 65 minutes on the date of service in preparation, delivery, and documentation of the care provided to this patient, excluding any time spent in the performance of separately billed services. History of Present Illness Attending Physician: Bacilio Morejon MD History of Present Illness Mr Castro is a 68-year-old male seen in cardiology consultation per the request of Dr. Pandya for the evaluation of subjective symptoms of shortness of breath with exertion and with lying flat, lower extremity edema. Patient seen in the emergency department, room B11A. He is accompanied by his spouse, Adrianne at the bedside. Patient notes several days of worsening lower extremity edema, orthopnea, and exertional shortness of breath. He had been in contact with the cardiac surgery service at [facility] yesterday 02/08/2024 and he had been instructed to increase his oral furosemide from 40 mg twice daily to 80 mg a.m., 40 mg p.m. Few days before his furosemide dose was increased to 40 mg twice daily. The patient has a history of multivessel coronary heart disease as well as severe aortic stenosis for which she had recently undergone CABG X 4 (JOHNSON to LAD; SVG to RAMUS, OM, LPDA), AVR with 25mm Inspiris Valve performed 01/29/[address] Parsons at [facility]. Patient had taken furosemide 80 mg prior to arrival today, and has since received another 20 mg and feels subjectively improved. Allergies Allergy/AdvReac Type Severity Reaction Status Date / Time amoxicillin AdvReac Gastrointestinal Verified 02/09/24 11:49 Upset Home Medications Medication Instructions Recorded Confirmed Type metformin 1,000 mg tablet 1,000 mg PO BID 12/26/20 02/09/24 History multivitamin 1 tab PO QAM 12/26/20 02/09/24 History dapagliflozin propanediol 10 mg 10 mg PO QAM 01/15/24 02/09/24 History tablet fluticasone propionate 50 2 spray intranasal DAILY 01/15/24 02/09/24 History mcg/actuation nasal spray,suspension omeprazole 20 mg tablet,delayed 20 mg PO DAILY 01/15/24 02/09/24 History release rosuvastatin 20 mg tablet 20 mg PO HS 01/15/24 02/09/24 History semaglutide 2 mg/dose (8 mg/3 mL) 1 mg subcut WK 01/15/24 02/09/24 History subcutaneous pen injector (Ozempic) amiodarone 200 mg tablet See Rx Instructions .Route .COMPLEX 02/09/24 02/09/24 History aspirin 81 mg tablet,delayed 81 mg PO QAM 02/09/24 02/09/24 History release furosemide 40 mg tablet See Rx Instructions .Route .COMPLEX 02/09/24 02/09/24 History metoprolol succinate 25 mg 25 mg PO QAM 02/09/24 02/09/24 History tablet,extended release 24 hr oxycodone 5 mg tablet 5 mg PO Q4H PRN Severe Pain (Scale 02/09/24 02/09/24 History Score 7-10) potassium chloride 10 mEq 10 meq PO BID 02/09/24 02/09/24 History tablet,extended release repaglinide 2 mg tablet 4 mg PO HS 02/09/24 02/09/24 History tamsulosin 0.4 mg capsule 0.4 mg PO DAILY 02/09/24 02/09/24 History Patient History Medical History History of vertebral fracture Aortic stenosis CAD (coronary artery disease) Melanoma in situ of left shoulder Pneumonia due to COVID-19 virus CLL (chronic lymphocytic leukemia) Left knee DJD Postlaminectomy syndrome, cervical (08/01/12) Surgical History History of arthroscopic surgery of shoulder History of total left knee replacement History of lumbar fusion History of inguinal hernia repair History of umbilical hernia repair S/P AVR (aortic valve replacement) S/P CABG x 4 S/P cervical spinal fusion (08/01/12) Family History Father Cancer Daughter Diabetes Other Heart disease Social History Smoking Status: Never smoker Tobacco Type: Smokeless Tobacco (Dip or Chew) Hx Alcohol Use: No Hx Substance Use: No Preferred Language: Mongolian Communication Ability: Effective Md Physician Dermatologist Required: No Beliefs That Will Affect Care: None Current Living Situation: Spouse Feels Safe at Home: Yes Assistive Devices: None Review of Systems Review of Systems: All systems reviewed & are unremarkable except as noted in HPI & below Physical Exam Physical Exam: General: no acute distress and stated age Eyes: conjunctiva are pink and non-injected, sclera clear Neck: normal jugular venous pulse, no hepatojugular reflux Chest: normal shape and normal respiratory effort Midline sternotomy incision, without drainage, or erythema, clean dry and intact, chest tube incisions also clean dry and intact Lungs: Decreased breath sounds bilaterally at the bases Cardiac Exam: - regular heart sounds, no murmurs Abdomen: abdomen soft, non-tender, no abnormal masses and no hepatosplenomegaly Musculoskeletal: no gait disturbance, no weakness Extremities: 2+ bilateral lower extremity edema Neuro:awake, conversant, follows commands, no focal motor deficits Psych: appropriate affect and insight. Results & Data Vital Signs (Past 12 Hours) Vital Signs Temp Pulse Pulse Resp BP BP Pulse Ox 02/09/24 18:00 71 20 130/63 98 02/09/24 12:47 02/09/24 12:47 68 16 157/64 H 95 02/09/24 11:06 66 14 122/59 L 95 02/09/24 10:38 67 02/09/24 09:56 95 02/09/24 09:41 36.0 C L 71 22 116/66 97 Pulse Ox O2 Del Method O2 Del Method 02/09/24 18:00 Room Air 02/09/24 12:47 95 Room Air 02/09/24 12:47 Room Air 02/09/24 11:06 Room Air 02/09/24 10:38 02/09/24 09:56 Room Air 02/09/24 09:41 Room Air Laboratory Results Cardiac Enzymes 02/09/24 02/09/24 Range/Units 10:00 12:55 AST 44 H (13-39) U/L Troponin I High Sens 30.6 H 28.2 H (0-20) pg/ml B-Natriuretic Peptide 499 H (0-100) pg/ml Coagulation 02/09/24 Range/Units 10:00 B-Natriuretic Peptide 499 H (0-100) pg/ml CBC 02/09/24 Range/Units 10:00 WBC 59.73 H* (4.8-10.8) K/ul RBC 2.95 L (4.70-6.10) M/uL Hgb 9.0 L (14.0-18.0) g/dl Hct 29.5 L (42.0-52.0) % Plt Count 194 (130-400) K/uL Neut # (Auto) 5.17 (1.40-6.50) K/uL Lymph # (Auto) 54.16 H (1.20-3.40) K/uL [place] # (Auto) 0.17 (0.11-0.59) K/uL Eos # (Auto) 0.05 (0.00-0.50) K/uL Baso # (Auto) 0.06 (0.00-0.20) K/uL Comprehensive Metabolic Panel 02/09/24 Range/Units 10:00 Sodium 138 (136-145) mmol/L Potassium 4.0 (3.5-5.1) mmol/L Chloride 100 (98-107) mmol/L Carbon Dioxide 29 (21-32) mmol/L BUN 18 (6-23) mg/dl Creatinine 0.85 (0.6-1.4) mg/dl Glucose 205 H (70-99(Fasting)) mg/dl Calcium 8.4 L (8.6-10.3) mg/dl AST 44 H (13-39) U/L ALT 88 H (7-52) U/L Alkaline Phosphatase 89 (34-104) U/L Total Protein 6.2 (6.0-8.3) gm/dl Albumin 3.8 (3.4-5.0) gm/dl Intake and Output 02/09/24 02/09/2424 06:59 14:59 22:59 Intake Total 150 / 150 Output Total 870 / 870 Balance -720 / -720 Intake: Oral 150 / 150 Output: Urine 870 / 870 Other: Weight 113.3 kg Weight Measurement Method Built in [facility] Patient Weight 02/10/24 06:59 Weight 113.3 kg Diagnostic Findings Echocardiogram performed today and interpret independently: Moderate concentric left ventricular hypertrophy, no left ventricular regional wall motion abnormalities, LVEF normal 60 to 65%, right ventricular chamber size and systolic function is normal. There is a bioprosthetic aortic valve with normal prosthetic gradient and no significant prosthetic regurgitation A small circumferential pericardial effusion is present without tamponade EKG performed today 02/09/2024 at 9:52 AM and reviewed independently: Sinus rhythm at 70 bpm with occasional PVCs, nonspecific IVCD, compared to the previous, premature ventricular contractions or fusion beats noted. Portable chest x-ray performed today and interpreted independently: Mild pulmonary vascular congestion, moderate right and small left pleural effusions noted
[2024-02-09] MEDS: ROSUVASTATIN CALCIUM 20 MG TAB PO SCH (20:50)
[2024-02-09] MEDS: POTASSIUM CHLORIDE 10 MEQ TABCR PO SCH (20:51)
--- NOTE | 2024-02-09 21:21 | CT Scan Report ---
CT head/brain wo con CLINICAL HISTORY: near syncope, vs seizure Technique: Contiguous axial CT images of the head were acquired from the base of the skull to the holden dina without intravenous contrast administration. Images were viewed in brain, subdural and bone [facility] ws. Automated dose lowering techniques and/or adjustment according to patient size were utilized for this exam. Comparison: None available at the time of this dictation. Findings: The ventricles, basal cisterns, and cerebral sulci are normal. There is no acute intracranial hemorrh age or evidence of acute territorial infarction. Neither mass effect, shift of the midline structures , nor abnormal extra-axial fluid collections are shown. Imaged portions of the paranasal sinuses and mastoid air cells are clear. The orbits appear normal. There are no acute fractures of the calvaria or scalp swelling. Impression: No acute intracranial hemorrhage, no evidence of acute territorial infarction or other acute intracra nial disease process. ACT 112: Negative or not required by law. Electronically signed by: Elmer Jo M.D. 02/09/2024 9:19 PM
[2024-02-10 06:40] LABS: Hematocrit (blood only) 29.5 % (42.0-52.0); Mean Corpuscular Hemoglobin 30.8 pg (25.0-34.0); Mean Corpuscular Hgb Conc 30.5 g/dL (32.0-36.0); Mean Platelet Volume 10.9 fL (9.4-12.4); Nucleated RBC # (auto) 0.03 K/uL (0.00-0.12); Platelet Count 209 K/uL (130-400); RDW Coefficient of Variation 16.3 % (11.5-14.5); RDW Standard Deviation 58.3 fL (36.4-46.3); Red Blood Count 2.92 M/uL (4.70-6.10); White Blood Count 63.62 K/ul (4.8-10.8)
[2024-02-10 07:05] LABS: BUN Creatinine Ratio 26.6 (10-20); Est GFR (African American) 106.9 ml/min; Est GFR (Non-African American) 92.3 ml/min; Potassium 4.4 mmol/L (3.5-5.1)
[2024-02-10 07:29] LABS: Basophils % (auto) 0.2 %; Eosinophils # (auto) 0.04 K/uL (0.00-0.50); Eosinophils % (auto) 0.1 %; Immature Granulocytes # (auto) 0.11 K/uL (0.01-0.20); Immature Granulocytes % (auto) 0.2 %; Lymphocytes # (auto) 58.18 K/uL (1.20-3.40); Lymphocytes % (auto) 91.4 %; Monocytes # (auto) 0.19 K/uL (0.11-0.59); Monocytes % (auto) 0.3 %; Neutrophils % (auto) 7.8 %; Polychromasia 1+; Smudge Cells Present; Stomatocytes 1+
[2024-02-10] MEDS: METOPROLOL SUCC 25MG EXT REL TAB PO SCH (08:58)
[2024-02-10] MEDS: MULTIVITAMIN TAB PO SCH (08:58)
[2024-02-10] MEDS: PANTOprazole 40 MG TAB PO SCH (08:58)
[2024-02-10] MEDS: AMIODARONE 200 MG TAB PO SCH (08:59)
[2024-02-10] MEDS: ASPIRIN 81 MG ECTAB PO SCH (08:59)
[2024-02-10] MEDS: ENOXAPARIN INJ 40 MG/0.4 ML SYR SQ SCH (09:02)
--- NOTE | 2024-02-10 09:52 | Cardiology Progress Note ---
Date of Service February 10, 2024 Assessment & Plan (1) Acute heart failure with preserved ejection fraction (HFpEF): (2) Pericardial effusion: (3) CLL (chronic lymphocytic leukemia): Plan * Furosemide 40 mg IV today, 02/09 * Fluid restrict to 2 L. * Given small circumferential pericardial effusion, need to be cautious not to overdiuresis. 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 * Continue aspirin, amiodarone, metoprolol, potassium chloride, rosuvastatin, Flomax. * Agree with Lovenox 40 mg subcu daily in the a.m. for DVT prophylaxis. Admission and Anticipated Discharge Date Admission Date: February 09, 2024 Subjective Patient seen in cardiology follow up. No acute symptoms. Still with significant edema. Physical Exam Physical Exam: General: no acute distress and stated age Eyes: conjunctiva are pink and non-injected, sclera clear Neck: normal jugular venous pulse, no hepatojugular reflux Chest: normal shape and normal respiratory effort Midline sternotomy incision, without drainage, or erythema, clean dry and intact, chest tube incisions also clean dry and intact Lungs: Decreased breath sounds bilaterally at the bases, right worse than left Cardiac Exam: - regular heart sounds, no murmurs Abdomen: abdomen soft, non-tender, no abnormal masses and no hepatosplenomegaly Musculoskeletal: no gait disturbance, no weakness Extremities: 2+ bilateral lower extremity edema Neuro:awake, conversant, follows commands, no focal motor deficits Psych: appropriate affect and insight. Results & Data Vital Signs (Past 12 Hours) Vital Signs Temp Pulse Pulse Resp BP Pulse Ox O2 Del Method 02/10/24 08:00 68 02/10/24 07:22 36.6 C 63 20 129/72 93 Room Air 02/10/24 02:54 36.4 C L 69 16 124/67 93 Room Air 02/09/24 22:40 37.1 C 69 16 130/73 92 Room Air 02/09/24 22:02 70 Laboratory Results Cardiac Enzymes 02/09/24 02/09/24 Range/Units 10:00 12:55 AST 44 H (13-39) U/L Troponin I High Sens 30.6 H 28.2 H (0-20) pg/ml B-Natriuretic Peptide 499 H (0-100) pg/ml Coagulation 02/09/24 Range/Units 10:00 B-Natriuretic Peptide 499 H (0-100) pg/ml CBC 02/09/24 02/10/24 Range/Units 10:00 06:14 WBC 59.73 H* 63.62 H* (4.8-10.8) K/ul RBC 2.95 L 2.92 L (4.70-6.10) M/uL Hgb 9.0 L 9.0 L (14.0-18.0) g/dl Hct 29.5 L 29.5 L (42.0-52.0) % Plt Count 194 209 (130-400) K/uL Neut # (Auto) 5.17 5.00 (1.40-6.50) K/uL Lymph # (Auto) 54.16 H 58.18 H (1.20-3.40) K/uL Holt # (Auto) 0.17 0.19 (0.11-0.59) K/uL Eos # (Auto) 0.05 0.04 (0.00-0.50) K/uL Baso # (Auto) 0.06 0.10 (0.00-0.20) K/uL Comprehensive Metabolic Panel 02/09/24 02/10/24 Range/Units 10:00 06:14 Sodium 138 138 (136-145) mmol/L Potassium 4.0 4.4 (3.5-5.1) mmol/L Chloride 100 101 (98-107) mmol/L Carbon Dioxide 29 33 H (21-32) mmol/L BUN 18 21 (6-23) mg/dl Creatinine 0.85 0.79 (0.6-1.4) mg/dl Glucose 205 H 160 H (70-99(Fasting)) mg/dl Calcium 8.4 L 8.0 L (8.6-10.3) mg/dl AST 44 H (13-39) U/L ALT 88 H (7-52) U/L Alkaline Phosphatase 89 (34-104) U/L Total Protein 6.2 (6.0-8.3) gm/dl Albumin 3.8 (3.4-5.0) gm/dl Intake and Output 02/09/24 02/10/24 02/10/24 22:59 06:59 14:59 Intake Total 100 / 800 550 / 800 Output Total 500 / 2145 775 / 2145 300 / 300 Balance -400 / -1345 -225 / -1345 -300 / -300 Intake: Oral 100 / 800 550 / 800 Output: Urine 500 / 2145 775 / 2145 300 / 300 Other: Weight 110.2 kg 110.2 kg 109.854 kg Weight Measurement Method [facility] Bed[facility] Standing Scale Patient Weight 02/11/24 06:59 Weight 109.854 kg
--- NOTE | 2024-02-10 10:21 | Neurology Consultation ---
Date of Consultation February 10, 2024 Telehealth Consultation Telehealth Information Telehealth Information: I performed this visit using a real-time telehealth connection between my location and the patients location ([facility]). After connecting through interactive tele-video, patient was identified by name and date of and/or wristband check.Patient (or authorized healthcare personal service representative) was informed that this was a telemedicine visit and it was being conducted confidentially over secure lines. My office door was closed and no one else was present in the room with me.Patient (or authorized healthcare personal service representative) provided consent to proceed with the visit, expressed an understanding of privacy and security of the telemedicine visit, and gave permission to have a hospital personal service representative in the room in order to assist with the visit and to conduct portions of the visit, as needed. I informed the patient (or authorized healthcare personal service representative) that I reviewed their record and presented the opportunity for them to ask any questions regarding the visit today. The patient agreed to participate. History of Present Illness Reason for Consultation: 68yo male with significant past medical hx including HFpEF, CLL, CAD, aortic stenosis, DM, dyslipidemia and ALIE presented with report of worsening lower extremity edema worsening dyspnea on exertion after recent discharge following CABG/AVR. She/He has undergone emergent stroke imaging including CT brain without contrast, personally reviewed at today, revealing no overt evidence of hemorrhage. CT angiographic studies of head and neck, also personally reviewed at today, reveal no overt evidence of large vessel occlusion or significant/flow limiting stenosis. I have performed televideo consultation. He/She is alert & oriented; able to answer all questions appropriately, name objects on televideo monitor, repeat phrases and perform complex/embedded commands without deficit. Neurological exam is non lateralizing/nonfocal in terms of motor strength and coordination. NIHSS Recommend admission for continued stroke work up to include the following: MRI brain withwithout contrast Echocardiogram as part of complete stroke workup Continue frequent neurological assessments Obtain stat CT brain without contrast for any acute neurological decline Continue to monitor/control blood pressure & blood glucose Recommend keep systolic blood pressure < Continue to monitor telemetry closely Recommend ZioPatch at DC if no evidence of arrhythmia during inpatient monitoring Continue to monitor renal and hepatic function, keep euvolemic Metabolic workup should include hgbA1c, fasting lipids, homocysteine, TSH, D Dimer Recommend DAPT for at least 3 weeks Recommend high dose statin therapy indefinitely if tolerated Ok from neurology perspective for VTE prophylaxis PT/OT/SLT to eval and treat Recommend outpatient polysomnography Recommend obtain EEG Provide seizure precautions Utilize benzodiazepines emergently for any breakthrough clinical seizure like activity No reported cephalgia or cervicalgia Denies chest pain/palpitations or shortness of breath No reported changes in vision hearing dizziness syncope seizure like activity or paresthesia Denies recent fevers chills nausea vomiting changes in bowels or bladder Denies recent medication changes, recent illness or sick contacts, no reported recent travel Attending Physician: Beth Olivares MD Allergies Allergy/AdvReac Type Severity Reaction Status Date / Time amoxicillin AdvReac Gastrointestinal Verified 02/09/24 11:49 Upset Home Medications Medication Instructions Recorded Confirmed Type metformin 1,000 mg tablet 1,000 mg PO BID 12/26/20 02/09/24 History multivitamin 1 tab PO QAM 12/26/20 02/09/24 History dapagliflozin propanediol 10 mg 10 mg PO QAM 01/15/24 02/09/24 History tablet fluticasone propionate 50 2 spray intranasal DAILY 01/15/24 02/09/24 History mcg/actuation nasal spray,suspension omeprazole 20 mg tablet,delayed 20 mg PO DAILY 01/15/24 02/09/24 History release rosuvastatin 20 mg tablet 20 mg PO HS 01/15/24 02/09/24 History semaglutide 2 mg/dose (8 mg/3 mL) 1 mg subcut WK 01/15/24 02/09/24 History subcutaneous pen injector (Ozempic) amiodarone 200 mg tablet See Rx Instructions .Route .COMPLEX 02/09/24 02/09/24 History aspirin 81 mg tablet,delayed 81 mg PO QAM 02/09/24 02/09/24 History release furosemide 40 mg tablet See Rx Instructions .Route .COMPLEX 02/09/24 02/09/24 History metoprolol succinate 25 mg 25 mg PO QAM 02/09/24 02/09/24 History tablet,extended release 24 hr oxycodone 5 mg tablet 5 mg PO Q4H PRN Severe Pain (Scale 02/09/24 02/09/24 History Score 7-10) potassium chloride 10 mEq 10 meq PO BID 02/09/24 02/09/24 History tablet,extended release repaglinide 2 mg tablet 4 mg PO HS 02/09/24 02/09/24 History tamsulosin 0.4 mg capsule 0.4 mg PO DAILY 02/09/24 02/09/24 History Patient History Medical History History of vertebral fracture Aortic stenosis CAD (coronary artery disease) Melanoma in situ of left shoulder Pneumonia due to COVID-19 virus CLL (chronic lymphocytic leukemia) Left knee DJD Postlaminectomy syndrome, cervical (08/01/12) Surgical History History of arthroscopic surgery of shoulder History of total left knee replacement History of lumbar fusion History of inguinal hernia repair History of umbilical hernia repair S/P AVR (aortic valve replacement) S/P CABG x 4 S/P cervical spinal fusion (08/01/12) Family History Father Cancer Daughter Diabetes Other Heart disease Social History Smoking Status: Never smoker Tobacco Type: Smokeless Tobacco (Dip or Chew) Hx Alcohol Use: No Hx Substance Use: No Preferred Language: Bengali Communication Ability: Effective Histologic Technician Required: No Beliefs That Will Affect Care: None Current Living Situation: Spouse Other Information That Helps Us Care for You: No Feels Safe at Home: Yes Safety Concerns: Feels Safe At This Time Assistive Devices: None Results & Data Vital Signs (Past 12 Hours) Vital Signs Temp Pulse Pulse Resp BP Pulse Ox O2 Del Method 02/10/24 08:00 68 02/10/24 07:22 36.6 C 63 20 129/72 93 Room Air 02/10/24 02:54 36.4 C L 69 16 124/67 93 Room Air 02/09/24 22:40 37.1 C 69 16 130/73 92 Room Air Laboratory Results Abnormal lab results 02/09/24 02/09/24 02/09/24 Range/Units 10:00 12:55 17:53 WBC 59.73 H* (4.8-10.8) K/ul RBC 2.95 L (4.70-6.10) M/uL Hgb 9.0 L (14.0-18.0) g/dl Hct 29.5 L (42.0-52.0) % MCV (80.0-100.0) fL MCHC 30.5 L (32.0-36.0) g/dL RDW Std Deviation 57.1 H (36.4-46.3) fL RDW Coeff of Lindsey 16.2 H (11.5-14.5) % Lymph # (Auto) 54.16 H (1.20-3.40) K/uL Carbon Dioxide (21-32) mmol/L BUN/Creatinine Ratio 21.2 H (10-20) Glucose 205 H (70-99(Fasting)) mg/dl POC Glucose 138 H (70-99) mg/dl Calcium 8.4 L (8.6-10.3) mg/dl AST 44 H (13-39) U/L ALT 88 H (7-52) U/L Troponin I High Sens 30.6 H 28.2 H (0-20) pg/ml B-Natriuretic Peptide 499 H (0-100) pg/ml Globulin 2.4 L (2.5-4.0) gm/dl 02/09/24 02/10/24 02/10/24 Range/Units 20:09 06:14 07:20 WBC 63.62 H* (4.8-10.8) K/ul RBC 2.92 L (4.70-6.10) M/uL Hgb 9.0 L (14.0-18.0) g/dl Hct 29.5 L (42.0-52.0) % MCV 101.0 H (80.0-100.0) fL MCHC 30.5 L (32.0-36.0) g/dL RDW Std Deviation 58.3 H (36.4-46.3) fL RDW Coeff of Lindsey 16.3 H (11.5-14.5) % Lymph # (Auto) 58.18 H (1.20-3.40) K/uL Carbon Dioxide 33 H (21-32) mmol/L BUN/Creatinine Ratio 26.6 H (10-20) Glucose 160 H (70-99(Fasting)) mg/dl POC Glucose 155 H 158 H (70-99) mg/dl Calcium 8.0 L (8.6-10.3) mg/dl AST (13-39) U/L ALT (7-52) U/L Troponin I High Sens (0-20) pg/ml B-Natriuretic Peptide (0-100) pg/ml Globulin (2.5-4.0) gm/dl Diagnostic Findings Chest X-Ray 02/09/24 09:53 XR chest 1V portable HISTORY: Chest pain, nonspecific COMPARISON: Chest 06/28/2021. FINDINGS: No pneumothorax. The heart remains enlarged. There are poststernotomy changes and thoracolumbar fusion hardware again noted. Mild congestive change. Small to moderate right and small left pleural effusions with bibasilar densities. Postoperative changes within the left shoulder. IMPRESSION: 1. Cardiomegaly with mild pulmonary vascular congestion. 2. Small to moderate right and small left pleural effusions with bibasilar densities. This may represent a pneumonia. ACT 112: Negative or not required by law. Electronically signed by: Kleber Wick M.D. 02/09/2024 10:[address] 02/09/24 18:26 CT head/brain wo con CLINICAL HISTORY: near syncope, vs seizure Technique: Contiguous axial CT images of the head were acquired from the base of the skull to the vertex without intravenous contrast administration. Images were viewed in brain, subdural and bone windows. Automated dose lowering techniques and/or adjustment according to patient size were utilized for this exam. Comparison: None available at the time of this dictation. Findings: The ventricles, basal cisterns, and cerebral sulci are normal. There is no acute intracranial hemorrhage or evidence of acute territorial infarction. Neither mass effect, shift of the midline structures, nor abnormal extra-axial fluid collections are shown. Imaged portions of the paranasal sinuses and mastoid air cells are clear. The orbits appear normal. There are no acute fractures of the calvaria or scalp swelling. Impression: No acute intracranial hemorrhage, no evidence of acute territorial infarction or other acute intracranial disease process. ACT 112: Negative or not required by law. Electronically signed by: Elmer Jo M.D. 02/09/2024 9:19 PM Medications Administered Home Medications Medication Instructions Recorded Confirmed Last Taken metformin 1,000 mg tablet 1,000 mg PO BID 12/26/20 02/09/24 02/09/24 multivitamin 1 tab PO QAM 12/26/20 02/09/24 02/09/24 dapagliflozin propanediol 10 mg 10 mg PO QAM 01/15/24 02/09/24 02/09/24 tablet fluticasone propionate 50 2 spray intranasal DAILY 01/15/24 02/09/24 02/09/24 mcg/actuation nasal spray,suspension omeprazole 20 mg tablet,delayed 20 mg PO DAILY 01/15/24 02/09/24 02/09/24 release rosuvastatin 20 mg tablet 20 mg PO HS 01/15/24 02/09/24 02/08/24 semaglutide 2 mg/dose (8 mg/3 mL) 1 mg subcut WK 01/15/24 02/09/24 02/08/24 subcutaneous pen injector (Ozempic) amiodarone 200 mg tablet See Rx Instructions .Route .COMPLEX 02/09/24 02/09/24 02/09/24 aspirin 81 mg tablet,delayed 81 mg PO QAM 02/09/24 02/09/24 02/09/24 release furosemide 40 mg tablet See Rx Instructions .Route .COMPLEX 02/09/24 02/09/24 02/09/24 metoprolol succinate 25 mg 25 mg PO QAM 02/09/24 02/09/24 02/09/24 tablet,extended release 24 hr oxycodone 5 mg tablet 5 mg PO Q4H PRN Severe Pain (Scale 02/09/24 02/09/24 02/07/24 Score 7-10) potassium chloride 10 mEq 10 meq PO BID 02/09/24 02/09/24 02/09/24 tablet,extended release repaglinide 2 mg tablet 4 mg PO HS 02/09/24 02/09/24 02/08/24 tamsulosin 0.4 mg capsule 0.4 mg PO DAILY 02/09/24 02/09/24 Unknown Active Medications Generic Name Dose Route Start Last Admin Trade Name Freq PRN Reason Stop Dose Admin Amiodarone HCl 200 mg 02/10/24 09:00 02/10/24 08:59 Amiodarone 200 Mg Tab PO 03/11/24 08:59 200 mg QAM BREANNA Administration Aspirin 81 mg 02/10/24 09:00 02/10/24 08:59 Aspirin 81 Mg Ectab PO 03/11/24 08:59 81 mg QAM BREANNA Administration Enoxaparin Sodium 40 mg 02/10/24 09:00 02/10/24 09:02 Enoxaparin Inj 40 Mg/0.4 Ml Syr SQ 03/11/24 08:59 40 mg QAM BREANNA Administration Insulin Aspart 0 units 02/09/24 16:30 02/10/24 09:02 Insulin Aspart Per Unit Charge SC 03/10/24 16:29 7 units ACHS BREANNA Administration Metoprolol Succinate 25 mg 02/10/24 09:00 02/10/24 08:58 Metoprolol Succ 25mg Ext Rel Tab PO 03/11/24 08:59 25 mg QAM BREANNA Administration Miscellaneous 1 each 02/09/24 16:00 02/10/24 09:02 Order Awaiting Action: Dapagliflozin N/A 03/10/24 15:59 Not Given QS BREANNA Multivitamins 1 tab 02/10/24 09:00 02/10/24 08:58 Multivitamin Tab PO 03/11/24 08:59 1 tab QAM BREANNA Administration Pantoprazole Sodium 40 mg 02/10/24 09:00 02/10/24 08:58 Pantoprazole 40 Mg Tab PO 03/11/24 08:59 40 mg DAILY BREANNA Administration Protocol Potassium Chloride 10 meq 02/09/24 21:00 02/09/24 20:51 Potassium Chloride 10 Meq Tabcr PO 03/10/24 20:59 10 meq BID BREANNA Administration Rosuvastatin Calcium 20 mg 02/09/24 21:00 02/09/24 20:50 Rosuvastatin Calcium 20 Mg Tab PO 03/10/24 20:59 20 mg HS BREANNA Administration
[2024-02-10] MEDS: DOXYCYCLINE HYCLATE 100 MG CAP PO SCH (10:40)
[2024-02-10] MEDS: cefTRIAXone SODIUM 2,000 MG/50 ML BAG IV SCH (10:40)
[2024-02-10] MEDS: FLUTICASONE PROPIONATE NA SPR 16 GM BTL SCH (10:41)
[2024-02-10] MEDS: FUROSEMIDE 40 MG/4 ML VIAL IV ONE (10:42)
[2024-02-10] MEDS: COLCHICINE 0.6 MG TAB PO SCH (11:05)
[2024-02-10] MEDS: TAMSULOSIN HCL 0.4 MG CAP PO SCH (11:05)
--- NOTE | 2024-02-10 13:59 | Hospitalist Progress Note ---
Date of Service February 10, 2024 Assessment & Plan (1) Pericardial effusion: Plan 68 y/o male with PMH of CAD s/p recent CABG, aortic stenosis s/p recent AVR, CLL, DM2, ALIE (not using CPAP), dyslipidemia presented to the ED 02/08 with progressive LE edema and worsening dyspnea on exertion since being discharged after recent CABGx4/AVR. Weight is up 10-12 lbs from recent discharge. BNP elevated at 499, initial trop 30.6, repeat 28.2. Echo done in the ED showed pericardial effusion but no tamponade, preserved EF. He is being managed for the following: (1) Acute heart failure with preserved ejection fraction (HFpEF): Pericardial effusion, possible post pericardiotomy syndrome - BNP elevated at presentation. Wt up by 10-12 lbs. ECHO w/ EF of 60-65%; no regional WMA, small circumferential pericardial effusion, no tamponade. - Cardio on board, managing diuresis, pt started on colchicine. - Monitor and replete electrolytes; c/w telemetry. FR 2L. - Daily weights, monitor Is and Os - Labs in the AM including CBC, BMP, Mg Possible Pna: Admitting CXR w/ b/l pl effusion and bibasilar densities s/o pna. recent surgery is risk factor for pna. Will start rocephin and doxy 02/09. follow clinically. (2) Diabetes mellitus type 2 in obese: Chronic, stable Insulin sliding scale, holding Metformin, repaglinide Diabetic diet BSG ACHS (3) Obstructive sleep apnea: Not currently on CPAP and denies need for retrial of this at this time (4) CLL (chronic lymphocytic leukemia): Chronic, stable Follows with oncology Q4 months - monitoring clinically, labs stable (5) GERD (gastroesophageal reflux disease): Chronic, stable Continue once daily PPI (6) BPH (benign prostatic hyperplasia): Chronic, stable Continue tamsulosin (7) Dyslipidemia: Chronic, stable Continue statin therapy Plan Code Status: Full code DVT Prophylaxis: Lovenox Admission and Anticipated Discharge Date Admission Date: February 09, 2024 Subjective Patient was seen and examined at bedside. Patient was sitting up in chair, on room air, resting comfortably. Patient reports eating okay and moving bowels okay, denies any new acute event overnight. Patient denies any new other review of symptoms. Physical Exam Physical Exam: General: awake, alert, NAD HEENT: no scleral icterus, moist oral mucosa Neck: trachea midline Heart: regular Surgical midsternotomy scar - healing healthy. no s/s infection. Lungs: diminished BS at bases Rt > Lt, occ crackles lower lobe Abdomen: soft, obese, +BS, NT Extremities: 2+ pitting edema bilateral LE to just above knees, areas of ecchymosis noted Skin: no jaundice Neurologic: moving all extremities, Ox3, no confusion or dysarthria Results & Data Results & Data Vital Signs (Past 12 Hours) Vital Signs Temp Pulse Pulse Resp BP Pulse Ox O2 Del Method 02/10/24 11:18 36.6 C 65 19 119/67 96 Room Air 02/10/24 08:00 68 02/10/24 07:22 36.6 C 63 20 129/72 93 Room Air 02/10/24 02:54 36.4 C L 69 16 124/67 93 Room Air
--- NOTE | 2024-02-10 14:20 | Communication Note ---
Date of Service: February 10, 2024 Proceed with another dose of furosemide 20 mg IV x 1 now.
[2024-02-10] MEDS: FUROSEMIDE INJ 20 MG/2 ML VIAL IV ONE (14:46)
[2024-02-10] MEDS: SENNA 8.6 MG TAB PO PRN (21:04)
--- NOTE | 2024-02-11 05:51 | Electrocardiogram Report ---
Test Reason : Blood Pressure : / mmHG Vent. Rate : 070 BPM Atrial Rate : 070 BPM P-R Int : 176 ms QRS Dur : 124 ms QT Int : 478 ms P-R-T Axes : 021 020 062 degrees QTc Int : 516 ms Sinus rhythm with Fusion complexes Non-specific intra-ventricular conduction delay Borderline ECG When compared with ECG of 27-JUN-2021 01:14, Fusion complexes are now Present QRS duration has increased Confirmed by Reymundo Cordero ([id number]) on 02/11/2024 5:51:03 AM Referred By: Bacilio Morejon Confirmed By:Reymundo Cordero
[2024-02-11 07:50] LABS: Hematocrit (blood only) 31.1 % (42.0-52.0); Hemoglobin 9.4 g/dl (14.0-18.0); Mean Corpuscular Hemoglobin 30.2 pg (25.0-34.0); Mean Corpuscular Hgb Conc 30.2 g/dL (32.0-36.0); Mean Platelet Volume 10.5 fL (9.4-12.4); Platelet Count 225 K/uL (130-400); RDW Coefficient of Variation 16.5 % (11.5-14.5); Red Blood Count 3.11 M/uL (4.70-6.10); White Blood Count 62.79 K/ul (4.8-10.8)
[2024-02-11 07:54] LABS: Calcium 8.2 mg/dl (8.6-10.3); Creatinine Clr Calc Pharmacy 128.9 ml/min; Est GFR (African American) 113.1 ml/min; Est GFR (Non-African American) 97.5 ml/min; Phosphorus 4.1 mg/dl (2.5-4.9); Potassium 4.6 mmol/L (3.5-5.1)
--- NOTE | 2024-02-11 07:55 | Electroencephalogram ---
EEG Procedure Note Date of Service February 10, 2024 Start / End Times Start Time: 06:45 End Time: 07:14 Referring Physician Bacilio Morejon History A 68 year old male with syncope. EEG performed for evaluation of epileptiform activity. Home Medication List Medication Instructions Recorded Confirmed Type metformin 1,000 mg tablet 1,000 mg PO BID 12/26/20 02/09/24 History multivitamin 1 tab PO QA 12/26/20 02/09/24 History dapagliflozin propanediol 10 mg 10 mg PO QAM 01/15/24 02/09/24 History tablet fluticasone propionate 50 2 spray intranasal DAILY 01/15/24 02/09/24 History mcg/actuation nasal spray,suspension omeprazole 20 mg tablet,delayed 20 mg PO DAILY 01/15/24 02/09/24 History release rosuvastatin 20 mg tablet 20 mg PO HS 01/15/24 02/09/24 History semaglutide 2 mg/dose (8 mg/3 mL) 1 mg subcut WK 01/15/24 02/09/24 History subcutaneous pen injector (Ozempic) amiodarone 200 mg tablet See Rx Instructions .Route .COMPLEX 02/09/24 02/09/24 History aspirin 81 mg tablet,delayed 81 mg PO QAM 02/09/24 02/09/24 History release furosemide 40 mg tablet See Rx Instructions .Route .COMPLEX 02/09/24 02/09/24 History metoprolol succinate 25 mg 25 mg PO QAM 02/09/24 02/09/24 History tablet,extended release 24 hr oxycodone 5 mg tablet 5 mg PO Q4H PRN Severe Pain (Scale 02/09/24 02/09/24 History Score 7-10) potassium chloride 10 mEq 10 meq PO BID 02/09/24 02/09/24 History tablet,extended release repaglinide 2 mg tablet 4 mg PO HS 02/09/24 02/09/24 History tamsulosin 0.4 mg capsule 0.4 mg PO DAILY 02/09/24 02/09/24 History Inpatient Medication List Amiodarone HCl (Amiodarone 200 Mg Tab) 200 mg PO [facility] Stop: 03/11/24 08:59 Last Admin: 02/10/24 08:59 Dose: 200 mg Documented By: MS Aspirin (Aspirin 81 Mg Ectab) 81 mg PO [facility] Stop: 03/11/24 08:59 Last Admin: 02/10/24 08:59 Dose: 81 mg Documented By: MS Colchicine (Colchicine 0.6 Mg Tab) 0.6 mg PO BID [facility] Stop: 03/11/24 09:59 Last Admin: 02/10/24 20:55 Dose: 0.6 mg Documented By: Admin: 02/10/24 11:05 Dose: 0.6 mg Documented By: MS Doxycycline Hyclate (Doxycycline Hyclate 100 Mg Cap) 100 mg PO BID [facility] Stop: 02/14/24 21:01 Last Admin: 02/10/24 20:54 Dose: 100 mg Documented By: Admin: 02/10/24 10:40 Dose: 100 mg Documented By: MS Enoxaparin Sodium (Enoxaparin Inj 40 Mg/0.4 Ml Syr) 40 mg SQ QAM [facility] Stop: 03/11/24 08:59 Last Admin: 02/10/24 09:02 Dose: 40 mg Documented By: MS Fluticasone Propionate (Fluticasone Propionate Na Spr 16 Gm Btl) 2 sprays NA DAILY [facility] Stop: 03/11/24 08:59 Last Admin: 02/10/24 10:41 Dose: 2 sprays Documented By: MS Ceftriaxone Sodium (Rocephin) 2,000 mg in 50 mls @ 100 mls/hr IV Q24H [facility] Stop: 02/17/24 08:59 Last Infusion: 02/10/24 11:10 Dose: Infused Documented By: Admin: 02/10/24 10:40 Dose: 100 mls/hr Documented By: MS Insulin Aspart (Insulin Aspart Per Unit Charge) 0 units SC ACHS [facility] Stop: 03/10/24 16:29 Last Admin: 02/10/24 20:53 Dose: Not Given Documented By: Admin: 02/10/24 17:34 Dose: 14 units Documented By: Co-signed By: CHANTAL Admin: 02/10/24 12:02 Dose: 5 units Documented By: Co-signed By: CHANTAL Admin: 02/10/24 09:02 Dose: 7 units Documented By: Co-signed By: CHANTAL Admin: 02/09/24 20:49 Dose: 1 units Documented By: STACEY Co-signed By: VICKY Admin: 02/09/24 18:18 Dose: Not Given Documented By: SAJAN Metoprolol Succinate (Metoprolol Succ 25mg Ext Rel Tab) 25 mg PO QAM [facility] Stop: 03/11/24 08:59 Last Admin: 02/10/24 08:58 Dose: 25 mg Documented By: Miscellaneous (Order Awaiting Action: Dapagliflozin) 1 each N/A QS [facility] Stop: 03/10/24 15:59 Last Admin: 02/11/24 00:10 Dose: Not Given Documented By: Admin: 02/10/24 14:47 Dose: Not Given Documented By: Admin: 02/10/24 09:02 Dose: Not Given Documented By: Admin: 02/10/24 01:44 Dose: Not Given Documented By: Admin: 02/10/24 01:44 Dose: Not Given Documented By: STACEY Multivitamins (Multivitamin Tab) 1 tab PO [facility] Stop: 03/11/24 08:59 Last Admin: 02/10/24 08:58 Dose: 1 tab Documented By: Pantoprazole Sodium (Pantoprazole 40 Mg Tab) 40 mg PO DAILY [facility]; Protocol Stop: 03/11/24 08:59 Last Admin: 02/10/24 08:58 Dose: 40 mg Documented By: Potassium Chloride (Potassium Chloride 10 Meq Tabcr) 10 meq PO BID [facility] Stop: 03/10/24 20:59 Last Admin: 02/10/24 20:55 Dose: 10 meq Documented By: Admin: 02/10/24 10:41 Dose: 10 meq Documented By: Admin: 02/09/24 20:51 Dose: 10 meq Documented By: STACEY Rosuvastatin Calcium (Rosuvastatin Calcium 20 Mg Tab) 20 mg PO HS [facility] Stop: 03/10/24 20:59 Last Admin: 02/10/24 20:56 Dose: 20 mg Documented By: Admin: 02/09/24 20:50 Dose: 20 mg Documented By: STACEY Sennosides (Senna 8.6 Mg Tab) 17.2 mg PO BID PRN PRN Reason: Constipation Stop: 03/11/24 18:30 Last Admin: 02/10/24 21:04 Dose: 17.2 mg Documented By: AM Tamsulosin HCl (Tamsulosin Hcl 0.4 Mg Cap) 0.4 mg PO DAILY [facility] Stop: 03/11/24 08:59 Last Admin: 02/10/24 11:05 Dose: 0.4 mg Documented By: Discontinued Medications Furosemide (Furosemide Inj 20 Mg/2 Ml Vial) 20 mg IV NOW STA Stop: 02/09/24 11:42 Last Admin: 02/09/24 11:54 Dose: 20 mg Documented By: DAMIAN Furosemide (Furosemide 40 Mg/4 Ml Vial) 40 mg IV ONE ONE Stop: 02/10/24 09:45 Last Admin: 02/10/24 10:42 Dose: 40 mg Documented By: Furosemide (Furosemide Inj 20 Mg/2 Ml Vial) 20 mg IV ONE ONE Stop: 02/10/24 14:20 Last Admin: 02/10/24 14:46 Dose: 20 mg Documented By: Description This is a 21 electrode EEG with a single channel dedicated to limited EKG. The electrodes were placed in accordance with the International 10-20 system. REPORT: At the onset of the EEG the patient is awake. The background is symmetric. The posterior dominant rhythm is 8.5-9 Hz. During drowsiness there is increased theta delta slowing. No stage II sleep transients are seen. Photic does not induce any abnormalities. Interpretation IMPRESSION: This is an abnormal awake and drowsy routine EEG due to mild intermittent generalized slowing suggestive of a mild non specific encephalopathy. There is no evidence of focal slowing or epileptiform activity.
[2024-02-11] MEDS: FUROSEMIDE 40 MG/4 ML VIAL IV ONE (08:35)
--- NOTE | 2024-02-11 11:20 | Cardiology Progress Note ---
Date of Service February 11, 2024 Assessment & Plan (1) Acute heart failure with preserved ejection fraction (HFpEF): (2) Pericardial effusion: (3) CLL (chronic lymphocytic leukemia): Plan * Furosemide 40 mg IV today, 02/10 * Fluid restrict to 2 L. * Given small circumferential pericardial effusion, need to be cautious not to overdiuresis. * Repeat limited echo performed today 02/11/2024 and interpret independently reveals relatively stable small to moderate circumferential pericardial effusion without tamponade. 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 * Chronic leukocytosis noted consistent with patient's history of CLL. * Continue aspirin, amiodarone, metoprolol, potassium chloride, rosuvastatin, Flomax. * Lovenox 40 mg subcu daily in the a.m. for DVT prophylaxis. Admission and Anticipated Discharge Date Admission Date: February 09, 2024 Subjective Pt seen in follow up. Still with LE edema. Denies lightheadedness. No worsening shortness of breath. Telemetry reveals SR in the 60-70s. Physical Exam Physical Exam: General: no acute distress and stated age Eyes: conjunctiva are pink and non-injected, sclera clear Neck: normal jugular venous pulse, no hepatojugular reflux Chest: normal shape and normal respiratory effort Midline sternotomy incision, without drainage, or erythema, clean dry and intact, chest tube incisions also clean dry and intact Lungs: Decreased breath sounds bilaterally at the bases, right worse than left Cardiac Exam: - regular heart sounds, no murmurs Abdomen: abdomen soft, non-tender, no abnormal masses and no hepatosplenomegaly Musculoskeletal: no gait disturbance, no weakness Extremities: 2+ bilateral lower extremity edema Neuro:awake, conversant, follows commands, no focal motor deficits Psych: appropriate affect and insight. Results & Data Vital Signs (Past 12 Hours) Vital Signs Temp Pulse Pulse Resp BP Pulse Ox O2 Del Method 02/11/24 10:58 36.5 C 66 19 105/65 96 Room Air 02/11/24 07:01 69 02/11/24 06:35 36.3 C L 69 18 116/69 93 Room Air 02/11/24 02:53 36.5 C 69 18 120/70 95 Room Air 02/11/24 00:00 68 Laboratory Results CBC 02/11/24 Range/Units 07:17 WBC 62.79 H* (4.8-10.8) K/ul RBC 3.11 L (4.70-6.10) M/uL Hgb 9.4 L (14.0-18.0) g/dl Hct 31.1 L (42.0-52.0) % Plt Count 225 (130-400) K/uL Comprehensive Metabolic Panel 02/11/24 Range/Units 07:17 Sodium 137 (136-145) mmol/L Potassium 4.6 (3.5-5.1) mmol/L Chloride 101 (98-107) mmol/L Carbon Dioxide 31 (21-32) mmol/L BUN 20 (6-23) mg/dl Creatinine 0.69 (0.6-1.4) mg/dl Glucose 154 H (70-99(Fasting)) mg/dl Calcium 8.2 L (8.6-10.3) mg/dl Intake and Output 02/10/24 02/11/24 02/11/24 22:59 06:59 14:59 Intake Total 200 / 1050 200 / 1050 50 / 50 Output Total 1000 / 2750 350 / 2750 500 / 500 Balance -800 / -1700 -150 / -1700 -450 / -450 Intake: IV 50 / 50 cefTRIAXone SODIUM 2,000 mg In 50 / 50 50 ml @ 100 mls/hr IV Q24H [facility] Rx#:[id number] Oral 200 / 1000 200 / 1000 Output: Urine 1000 / 2750 350 / 2750 500 / 500 Other: Weight 109.4 kg Weight Measurement Method Standing Scale
--- NOTE | 2024-02-11 11:49 | Hospitalist Progress Note ---
Date of Service February 11, 2024 Assessment & Plan (1) Pericardial effusion: Plan 68 y/o male with PMH of CAD s/p recent CABG, aortic stenosis s/p recent AVR, CLL, DM2, ALIE (not using CPAP), dyslipidemia presented to the ED 02/08 with progressive LE edema and worsening dyspnea on exertion since being discharged after recent CABGx4/AVR. Weight is up 10-12 lbs from recent discharge. BNP elevated at 499, initial trop 30.6, repeat 28.2. Echo done in the ED showed pericardial effusion but no tamponade, preserved EF. 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 Weight was up by 10-12 lbs. ECHO w/ EF of 60-65%; no regional WMA, small circumferential pericardial effusion, no tamponade. Discussed with [employer] Machine Operator. Recommendations noted Continue IV lasix Daily weights, I/O Continue colchicine Possible pneumonia on Admitting CXR which noted b/l pl effusion and bibasilar d ensities s/o pna. Recent surgery is risk factor for pna. Continue ceftriaxone and doxycycline started on 02/09. (2) Diabetes mellitus type 2 in obese: Chronic, stable Insulin sliding scale, holding Metformin, repaglinide Diabetic diet BSG ACHS (3) Obstructive sleep apnea: Not currently on CPAP and denies need for retrial of this at this time (4) CLL (chronic lymphocytic leukemia): Chronic, stable Follows with oncology Q4 months - monitoring clinically, labs stable (5) GERD (gastroesophageal reflux disease): Chronic, stable Continue once daily PPI (6) BPH (benign prostatic hyperplasia): Chronic, stable Continue tamsulosin (7) Dyslipidemia: Chronic, stable Continue statin therapy Plan Code Status: Full code DVT Prophylaxis: Soniax Nell spent a total of 45 minutes coordinating, documenting and providing care for this patient excluding time spent in performance of separately billed services Admission and Anticipated Discharge Date Admission Date: February 09, 2024 Subjective Patient seen and examined. Reports leg swelling. Denies any other new complaints. Has chronic limited range of motion of the neck from old surgeries/fusion of neck Physical Exam Constitutional: + well hydrated; no acute distress Eyes: PERRL, conjunctivae normal, anicteric sclerae ENMT: external ear and nose normal, oropharynx normal Neck: Limited ROM Respiratory: On room air. Diminished breath Cardiovascular: Rate/Rhythm: regular rate and regular rhythm S1 S2 Gastrointestinal (Abdomen): normal bowel sounds, soft, nontender, no hepatosplenomegaly Musculoskeletal: Bilateral pedal edema Neurologic: PERRL, EOMI, accommodation nl, no face palsy, no dysarthria Psychiatric: A+Ox3, euthymic affect Results & Data Results & Data Vital Signs (Past 12 Hours) Vital Signs Temp Pulse Pulse Resp BP Pulse Ox O2 Del Method 02/11/24 10:58 36.5 C 66 19 105/65 96 Room Air 02/11/24 07:01 69 02/11/24 06:35 36.3 C L 69 18 116/69 93 Room Air 02/11/24 02:53 36.5 C 69 18 120/70 95 Room Air 02/11/24 00:00 68 Laboratory Results Abnormal lab results 02/10/24 02/10/24 02/11/24 Range/Units 16:08 20:05 07:17 WBC 62.79 H* (4.8-10.8) K/ul RBC 3.11 L (4.70-6.10) M/uL Hgb 9.4 L (14.0-18.0) g/dl Hct 31.1 L (42.0-52.0) % MCHC 30.2 L (32.0-36.0) g/dL RDW Std Deviation 57.0 H (36.4-46.3) fL RDW Coeff of Lindsey 16.5 H (11.5-14.5) % BUN/Creatinine Ratio 29.0 H (10-20) Glucose 154 H (70-99(Fasting)) mg/dl POC Glucose 264 H 143 H (70-99) mg/dl Calcium 8.2 L (8.6-10.3) mg/dl 02/11/24 02/11/24 Range/Units 07:20 10:58 WBC (4.8-10.8) K/ul RBC (4.70-6.10) M/uL Hgb (14.0-18.0) g/dl Hct (42.0-52.0) % MCHC (32.0-36.0) g/dL RDW Std Deviation (36.4-46.3) fL RDW Coeff of Lindsey (11.5-14.5) % BUN/Creatinine Ratio (10-20) Glucose (70-99(Fasting)) mg/dl POC Glucose 174 H 154 H (70-99) mg/dl Calcium (8.6-10.3) mg/dl
--- NOTE | 2024-02-11 15:02 | XRay Report ---
XR chest 2V PA/lateral HISTORY: 68 years-old Male follow up R pleural effusion follow-up study in a patient with right pleu ral effusion COMPARISON: 02/08/2003 4 TECHNIQUE: PA and lateral views of the chest FINDINGS: Cardiac silhouette is enlarged. Median sternotomy with cardiac valvular prosthesis. Pulmonary vascula r congestion. No pneumothorax. Right greater than left pleural effusions redemonstrated with bibasila r consolidation/atelectasis. Enclosing spondylosis. Surgical anchors within the left humeral head. Th oracolumbar fusion hardware is demonstrated. IMPRESSION: 1. Cardiomegaly with pulmonary vascular congestion. 2. Unchanged layering right greater than left pleural effusions with bibasilar opacities, similar to prior. ACT 112: Negative or not required by law. The above report was generated using voice recognition software. It may contain grammatical, syntax o r spelling errors. Electronically signed by: Richy Connor M.D. 02/11/2024 3:00 PM
--- NOTE | 2024-02-11 15:51 | Communication Note ---
Date of Service: February 11, 2024 CXR reveals ongoing R pleural effusion, unchanged. Plan: lasix 20 mg IV this afternoon, had 40 mg this am. Consult pulmonary to evaluate for pleural effusion.
--- NOTE | 2024-02-11 15:55 | Pulmonary Consultation ---
Date of Consultation February 11, 2024 Assessment & Plan (1) Acute heart failure with preserved ejection fraction (HFpEF): (2) Pericardial effusion: (3) CLL (chronic lymphocytic leukemia): (4) Obstructive sleep apnea: (5) Shortness of breath: Plan Chest x-ray 02/11/2024 personally reviewed: PA/lateral view, blunting of bilateral costophrenic and cardiophrenic angles, increased cardiac silhouette Mild improvement compared to 02/09/2024 2D echo 02/09/2024: EF 60-65%, small circumferential pericardial effusion, moderate concentric LVH, grade 2 diastolic dysfunction -- Bilateral pleural effusion R>L BNP 499 with grade 2 diastolic dysfunction No clear signs of pneumonia Etiology is likely recent aortic valve replacement with open heart surgery. HFpEF also playing a role POCUS 02/11/2024 did show moderate to large right-sided pleural effusion and small to moderate left-sided pleural effusion with dependent atelectasis --ALIE Not using CPAP -- CLL Not on any treatment Plan: In/out: -3.5 L since coming to the hospital. Patient is diuresing well, he is not in any respiratory distress but he would like thoracentesis to be done to get out of the fluid rather than continue with only diuretics. Risk and benefit of the procedure were explained to the patient in depth. I did explain to the patient that he does have grade 2 diastolic dysfunction and he will need to be optimized when it comes to his diuretic regimen all of the fluid is going to come back. He and his both understand. Hold Lovenox. For thoracentesis tomorrow BiPAP will also be beneficial in opening the lungs and diuresis Case discussed with cardiology Please note the above document was generated using voice recognition software. It may contain grammatical, syntax or spelling errors.Any formal questions or concerns about the content, text or information contained within the body of this dictation should be directly addressed to the provider for clarification. History of Present Illness Attending Physician: Summer Andrews MD History of Present Illness 68-year-old male presents to the hospital with worsening shortness of breath Past medical history: Aortic stenosis s/p AVR as well as CABG 01/29/2024, ALIE not using CPAP, dyslipidemia, CLL not on treatment, diabetes Pulmonary consulted for bilateral pleural effusion At the time of examination patient's was in the room. Patient was saturating 97% on room air with heart rate in the high 60s. He stated that he is feeling better compared to when he came to the hospital but even on minimal exertion he really gets short of breath. He has been getting diuretics while in the hospital and has been urinating well. Prior to hospitalization he denied any nausea or vomiting. No fever or chills No headache, no blurry vision Social history: Lifetime non-smoker. Used to chew tobacco. No history of lung cancer in the family Allergies Allergy/AdvReac Type Severity Reaction Status Date / Time amoxicillin AdvReac Gastrointestinal Verified 02/09/24 11:49 Upset Home Medications Medication Instructions Recorded Confirmed Type metformin 1,000 mg tablet 1,000 mg PO BID 12/26/20 02/09/24 History multivitamin 1 tab PO QAM 12/26/20 02/09/24 History dapagliflozin propanediol 10 mg 10 mg PO QAM 01/15/24 02/09/24 History tablet fluticasone propionate 50 2 spray intranasal DAILY 01/15/24 02/09/24 History mcg/actuation nasal spray,suspension omeprazole 20 mg tablet,delayed 20 mg PO DAILY 01/15/24 02/09/24 History release rosuvastatin 20 mg tablet 20 mg PO HS 01/15/24 02/09/24 History semaglutide 2 mg/dose (8 mg/3 mL) 1 mg subcut WK 01/15/24 02/09/24 History subcutaneous pen injector (Ozempic) amiodarone 200 mg tablet See Rx Instructions .Route .COMPLEX 02/09/24 02/09/24 History aspirin 81 mg tablet,delayed 81 mg PO QAM 02/09/24 02/09/24 History release furosemide 40 mg tablet See Rx Instructions .Route .COMPLEX 02/09/24 02/09/24 History metoprolol succinate 25 mg 25 mg PO QAM 02/09/24 02/09/24 History tablet,extended release 24 hr oxycodone 5 mg tablet 5 mg PO Q4H PRN Severe Pain (Scale 02/09/24 02/09/24 History Score 7-10) potassium chloride 10 mEq 10 meq PO BID 02/09/24 02/09/24 History tablet,extended release repaglinide 2 mg tablet 4 mg PO HS 02/09/24 02/09/24 History tamsulosin 0.4 mg capsule 0.4 mg PO DAILY 02/09/24 02/09/24 History Patient History Medical History History of vertebral fracture Aortic stenosis CAD (coronary artery disease) Melanoma in situ of left shoulder Pneumonia due to COVID-19 virus CLL (chronic lymphocytic leukemia) Left knee DJD Postlaminectomy syndrome, cervical (08/01/12) Surgical History History of arthroscopic surgery of shoulder History of total left knee replacement History of lumbar fusion History of inguinal hernia repair History of umbilical hernia repair S/P AVR (aortic valve replacement) S/P CABG x 4 S/P cervical spinal fusion (08/01/12) Family History Father Cancer Daughter Diabetes Other Heart disease Social History Smoking Status: Never smoker Tobacco Type: Smokeless Tobacco (Dip or Chew) Hx Alcohol Use: No Hx Substance Use: No Preferred Language: Guatemalan Communication Ability: Effective Brick Offbearer Required: No Beliefs That Will Affect Care: None Current Living Situation: Spouse Other Information That Helps Us Care for You: No Feels Safe at Home: Yes Safety Concerns: Feels Safe At This Time Assistive Devices: Walker Review of Systems 2 Review of Systems: All systems reviewed & are unremarkable except as noted in HPI & below Physical Exam 2 Physical Exam: Constitutional: No acute distress HEENT: EOMI, PERRLA Respiratory system: Decreased air entry bilaterally, no wheeze, rhonchi, positive crackles bilateral lower lobes CVS: S1-S2 positive, no murmurs or gallops, distant heart sounds Abdomen: Soft, nontender, nondistended, positive bowel sounds x4 Extremities: +2 pulses bilaterally radialis/ dorsalis pedis, no cyanosis, +3 pitting edema bilateral lower extremity Neuro: Awake alert oriented x3 Psych: Normal mood and affect G/U: No [place] Skin: no rashes, warm and dry Lymphatic: no cervical or axillary lymphadenopathy Results & Data Results & Data Vital Signs (Past 12 Hours) Vital Signs Temp Pulse Pulse Resp BP Pulse Ox O2 Del Method 02/11/24 15:36 36.6 C 69 20 114/67 97 Room Air 02/11/24 10:58 36.5 C 66 19 105/65 96 Room Air 02/11/24 07:01 69 02/11/24 06:35 36.3 C L 69 18 116/69 93 Room Air Laboratory Results 02/11/24 07:17 02/11/24 07:17 PG Care Time/CCT Total # of Minutes Spent Total Time Spent with Patient: Total time spent is greater than 50% in coordination of care (as documented) at patient's floor/unit and/or counseling patient: [place] [address] INT INP/OBS CARE 3/75MIN Patient Type New Diagnoses Acute heart failure with preserved ejection fraction (HFpEF) I50.31 Pericardial effusion I31.39 CLL (chronic lymphocytic leukemia) C91.10 Obstructive sleep apnea G47.33 Shortness of breath R06.02
[2024-02-11] MEDS: FUROSEMIDE INJ 20 MG/2 ML VIAL IV ONE (16:25)
--- NOTE | 2024-02-11 16:50 | Procedure Note ---
Procedure Note Date of Service February 11, 2024 Note Bedside Ultrasound: Lung: Right:-Moderate to large right-sided pleural effusion with atelectasis of the right lower lobe, a lines anteriorly, B-lines posteriorly Left:-Small to moderate left-sided pleural effusion with atelectasis of the left lower lobe, B-lines posteriorly Please note the above document was generated using voice recognition software. It may contain grammatical, syntax or spelling errors.Any formal questions or concerns about the content, text or information contained within the body of this dictation should be directly addressed to the provider for clarification. Coding CPT Codes Pulmonary/Thoracic - Pulmonary and Thoracic: 59158 US, Chest, real time with imaging documentation ([id number]) [facility] Procedure Codes (Charges) Pulmonary/Thoracic Procedure 1: Pulmonary and Thoracic: 78083 US, Chest, real time with imaging documentation
[2024-02-11] MEDS: ALBUMIN 25% 25 GM/100 ML VIAL IV ONE (23:49)
[2024-02-12] MEDS: DIGOXIN 250 MCG in SYRINGE 9 ML IV STA (00:01)
[2024-02-12] MEDS: OPTIRAY 320 125ml IV ONE (00:22)
--- NOTE | 2024-02-12 01:01 | CT Scan Report ---
Exam(s): CTA CHEST IV Amt: 118 ML OPTIRAY 320 EXAM: CT Angiography Chest With Intravenous Contrast CLINICAL HISTORY: Reason for exam: sob. TECHNIQUE: Axial computed tomographic angiography images of the chest with intravenous contrast. CTDI is 29.68 mGy and DLP is 915.29 mGy-cm. Automated exposure control was utilized for the study. A dose lowering technique was utilized adhering to the principles of ALARA. MIP reconstructed images were created and reviewed. COMPARISON: No relevant prior studies available. FINDINGS: Pulmonary arteries: Unremarkable. No acute pulmonary embolism. Aorta: Atherosclerotic changes of the aorta. No thoracic aortic aneurysm. Lungs: See below. Pleural space: Moderate bilateral pleural effusions. Airspace consolidation in the RIGHT lung base, concerning for mild aspiration pneumonia. Heart: Cardiomegaly. Mild retrosternal blood products. Dense fluid in the pericardium, correlate for hemopericardium. Recent cardiac surgery. Prosthetic aortic valve. CABG. No evidence of RV dysfunction. Thyroid: Bilateral thyroid nodules. Bones/joints: Sternotomy wires. Degenerative changes of the spine. No acute fracture. No dislocation. Soft tissues: Unremarkable. Lymph nodes: Unremarkable. No enlarged lymph nodes. IMPRESSION: 1. No acute pulmonary embolism. 2. Moderate bilateral pleural effusions. Airspace consolidation in the RIGHT lung base, concerning for mild aspiration pneumonia. 3. Mild retrosternal blood products. Dense fluid in the pericardium, correlate for hemopericardium. Recent cardiac surgery. Prosthetic aortic valve. CABG. Electronically signed by: Mega Silverio MD 02/12/24 00:59 AM
[2024-02-12 06:10] LABS: Albumin Level 3.6 gm/dl (3.4-5.0); BUN Creatinine Ratio 29.7 (10-20); Calcium 8.3 mg/dl (8.6-10.3); Chol HDL Ratio 3.3 (0-5); Creatinine Clr Calc Pharmacy 138.9 ml/min; Est GFR (African American) 116.6 ml/min; Est GFR (Non-African American) 100.6 ml/min; Magnesium 2.1 mg/dl (1.7-2.4); Potassium 4.7 mmol/L (3.5-5.1); Total Protein 5.9 gm/dl (6.0-8.3)
[2024-02-12 06:19] LABS: INR 1.1 (0.9-1.1); Partial Thromboplastin Ratio 0.9; Partial Thromboplastin Time 25 Seconds (21-31); Prothrombin Time 12.1 Seconds (9.0-12.0)
--- NOTE | 2024-02-12 07:03 | Communication Note ---
Date of Service: February 11, 2024 Transient rapid A-fib overnight. Patient anxious about possible blood clot as per RN. CT chest PE study
[2024-02-12 09:44] LABS: Hematocrit (blood only) 30.3 % (42.0-52.0); Hemoglobin 9.2 g/dl (14.0-18.0); Mean Corpuscular Hemoglobin 30.5 pg (25.0-34.0); Mean Corpuscular Hgb Conc 30.4 g/dL (32.0-36.0); Mean Corpuscular Volume 100.3 fL (80.0-100.0); Mean Platelet Volume 10.7 fL (9.4-12.4); Platelet Count 216 K/uL (130-400); RDW Coefficient of Variation 16.1 % (11.5-14.5); RDW Standard Deviation 57.8 fL (36.4-46.3); Red Blood Count 3.02 M/uL (4.70-6.10); White Blood Count 55.62 K/ul (4.8-10.8)
--- NOTE | 2024-02-12 11:52 | Cardiology Progress Note ---
Date of Service February 12, 2024 Assessment & Plan (1) Acute heart failure with preserved ejection fraction (HFpEF): (2) Pericardial effusion: (3) CLL (chronic lymphocytic leukemia): (4) Paroxysmal atrial fibrillation: Plan * Given small to moderate circumferential pericardial effusion, need to be cautious not to overdiuresis. 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 * Chronic leukocytosis noted consistent with patient's history of CLL. * Continue aspirin, amiodarone, metoprolol, potassium chloride, rosuvastatin, Flomax. * Holding furosemide this am, pending thoracentesis of right pleural effusion today. * Per review of the patient's recent discharge summary he had been noted to have postoperative atrial fibrillation and had converted to sinus rhythm spontaneously postoperatively and therefore was discharged on a 30-day course of amiodarone. * Hold off on anticoagulation at present given the pericardial effusion and limited duration of atrial fibrillation. * Will transfer his CT images to the [employer] system so that the surgery team will have them for review at time of 03/10/2024 follow-up visit with Dr Rust * Will discuss timing of resuming DVT prophylaxis dose lovenox with pulmonary post procedure. Admission and Anticipated Discharge Date Admission Date: February 09, 2024 Subjective Patient seen in cardiology follow-up. Sitting the bedside chair. Expresses ongoing frustration with regards to his perceived slow progress. He had a brief episode of atrial fibrillation last evening and rested poorly. The episode of atrial fibrillation prompted a CT angiogram of the chest was negative for pulmonary embolism. The study revealed the presence of bilateral pleural effusions which were already known, as well as the postoperative pericardial effusion. Physical Exam Physical Exam: General: no acute distress and stated age Eyes: conjunctiva are pink and non-injected, sclera clear Neck: normal jugular venous pulse, no hepatojugular reflux Chest: normal shape and normal respiratory effort Midline sternotomy incision, without drainage, or erythema, clean dry and intact, chest tube incisions also clean dry and intact Lungs: Decreased breath sounds bilaterally at the bases, right worse than left Cardiac Exam: - regular heart sounds, no murmurs Abdomen: abdomen soft, non-tender, no abnormal masses and no hepatosplenomegaly Musculoskeletal: no gait disturbance, no weakness Extremities: 2+ bilateral lower extremity edema Neuro:awake, conversant, follows commands, no focal motor deficits Psych: appropriate affect and insight. Results & Data Vital Signs (Past 12 Hours) Vital Signs Temp Pulse Resp BP Pulse Ox O2 Del Method O2 Flow Rate 02/12/24 11:08 36.6 C 70 19 117/71 95 Room Air 02/12/24 09:15 72 02/12/24 07:18 36.8 C 67 19 117/68 96 Room Air 02/12/24 02:50 36.4 C L 70 16 121/64 90 Nasal Cannula 1 Laboratory Results Cardiac Enzymes 02/12/24 02/12/24 Range/Units 05:28 05:28 Lactate Dehydrogenase 199 Cancelled (86-244) U/L Coagulation 02/12/24 Range/Units 05:28 PT 12.1 H (9.0-12.0) Seconds APTT 25 (21-31) Seconds Lipids 02/12/24 Range/Units 05:28 Triglycerides 92 (0-150) mg/dl Cholesterol 70 (0-200) mg/dl HDL Cholesterol 21 mg/dl Cholesterol/HDL Ratio 3.3 (0-5) CBC 02/12/24 Range/Units 05:28 WBC 55.62 H* (4.8-10.8) K/ul RBC 3.02 L (4.70-6.10) M/uL Hgb 9.2 L (14.0-18.0) g/dl Hct 30.3 L (42.0-52.0) % Plt Count 216 (130-400) K/uL Comprehensive Metabolic Panel 02/12/24 Range/Units 05:28 Sodium 136 (136-145) mmol/L Potassium 4.7 (3.5-5.1) mmol/L Chloride 101 (98-107) mmol/L Carbon Dioxide 30 (21-32) mmol/L BUN 19 (6-23) mg/dl Creatinine 0.64 (0.6-1.4) mg/dl Glucose 135 H (70-99(Fasting)) mg/dl Calcium 8.3 L (8.6-10.3) mg/dl Total Protein 5.9 L (6.0-8.3) gm/dl Albumin 3.6 (3.4-5.0) gm/dl Intake and Output 02/11/24 02/12/24 02/12/24 22:59 06:59 14:59 Intake Total 100 / 830 200 / 830 50 / 50 Output Total 750 / 2650 850 / 2650 525 / 525 Balance -650 / -1820 -650 / -1820 -475 / -475 Intake: IV 100 / 150 50 / 50 Albumin 25% 25 gm In 100 ml @ 100 / 100 50 mls/hr IV ONE ONE Rx#: [id number] cefTRIAXone SODIUM 2,000 mg In 50 / 50 50 ml @ 100 mls/hr IV Q24H [facility] Rx#:[id number] Oral 100 / 680 100 / 680 Output: Urine 750 / 2650 850 / 2650 525 / 525 Other: Other Intake Source fluid restriction Weight 108.8 kg Weight Measurement Method Standing Scale
--- NOTE | 2024-02-12 12:47 | XRay Report ---
XR chest 1V not portable HISTORY: Status post right thoracentesis. COMPARISON: Chest 02/11/2024. FINDINGS: Status post right thoracentesis with decrease in size in the now small right pleural effusi on. No pneumothorax. The heart remains enlarged. There are poststernotomy changes and a cardiac valve prosthesis again noted. Small left pleural effusion persists. Bibasilar densities again noted. This has improved on the right. There is mild pulmonary vascular congestion again noted. Partially visuali zed thoracolumbar spinal fusion hardware. IMPRESSION: 1. Status post right thoracentesis with decrease in size in the now small right pleural effusion. 2. No pneumothorax. 3. Cardiomegaly and mild congestive change persists. ACT 112: Negative or not required by law. Electronically signed by: Kleber Wick M.D. 02/12/2024 12:45 PM
--- NOTE | 2024-02-12 13:02 | Pulmonology Progress Note ---
Date of Service February 12, 2024 Assessment & Plan (1) Acute heart failure with preserved ejection fraction (HFpEF): (2) Pericardial effusion: (3) CLL (chronic lymphocytic leukemia): (4) Obstructive sleep apnea: (5) Shortness of breath: Plan Chest x-ray 02/11/2024 personally reviewed: PA/lateral view, blunting of bilateral costophrenic and cardiophrenic angles, increased cardiac silhouette Mild improvement compared to 02/09/2024 2D echo 02/09/2024: EF 60-65%, small circumferential pericardial effusion, moderate concentric LVH, grade 2 diastolic dysfunction -- Bilateral pleural effusion R>L BNP 499 with grade 2 diastolic dysfunction No clear signs of pneumonia Etiology is likely recent aortic valve replacement with open heart surgery. HFpEF also playing a role POCUS 02/11/2024 did show moderate to large right-sided pleural effusion and small to moderate left-sided pleural effusion with dependent atelectasis --ALIE Not using CPAP -- CLL Not on any treatment Plan: In/out: -5 L since coming to the hospital. For right-sided thoracentesis today I did explain to the patient that he does have grade 2 diastolic dysfunction and he will need to be optimized when it comes to his diuretic regimen all of the fluid is going to come back. CPAP will also be beneficial in opening the lungs and diuresis Please note the above document was generated using voice recognition software. It may contain grammatical, syntax or spelling errors.Any formal questions or concerns about the content, text or information contained within the body of this dictation should be directly addressed to the provider for clarification. Admission and Anticipated Discharge Date Admission Date: February 09, 2024 Subjective Patient seen and examined at bedside. No acute distress, notable symptoms overnight Patient's was in the room at the time of examination He was saturating 94% on room air. He stated that he did not get a good night sleep. Appetite is fair. No nausea or vomiting Has been diuresing well. Review of Systems 2 Review of Systems: All systems reviewed & are unremarkable except as noted in Subjective Physical Exam 2 Physical Exam: Constitutional: No acute distress HEENT: EOMI, PERRLA Respiratory system: Decreased air entry bilaterally, no wheeze, rhonchi, positive crackles bilateral lower lobes CVS: S1-S2 positive, no murmurs or gallops, distant heart sounds Abdomen: Soft, nontender, nondistended, positive bowel sounds x4 Extremities: +2 pulses bilaterally radialis/ dorsalis pedis, no cyanosis, +3 pitting edema bilateral lower extremity Neuro: Awake alert oriented x3 Psych: Normal mood and affect G/U: No [place] Skin: no rashes, warm and dry Lymphatic: no cervical or axillary lymphadenopathy Results & Data Results & Data Vital Signs (Past 12 Hours) Vital Signs Temp Pulse Resp BP Pulse Ox O2 Del Method O2 Flow Rate 02/12/24 11:08 36.6 C 70 19 117/71 95 Room Air 02/12/24 09:15 72 02/12/24 07:18 36.8 C 67 19 117/68 96 Room Air 02/12/24 02:50 36.4 C L 70 16 121/64 90 Nasal Cannula 1 Laboratory Results 02/12/24 05:28 02/12/24 05:28 PG Care Time/CCT Total # of Minutes Spent Total Time Spent with Patient: Total time spent is greater than 50% in coordination of care (as documented) at patient's floor/unit and/or counseling patient: Coding Level of Care Code 57727 SUB INP/OBS CARE 3/50MIN Diagnoses Acute heart failure with preserved ejection fraction (HFpEF) I50.31 Pericardial effusion I31.39 CLL (chronic lymphocytic leukemia) C91.10 Obstructive sleep apnea G47.33 Shortness of breath R06.02
[2024-02-12 13:04] LABS: Total Protein Pleural Fluid 3.5 gm/dl
--- NOTE | 2024-02-12 13:37 | Ultrasound Report ---
ULTRASOUND-GUIDED THORACENTESIS CLINICAL HISTORY: Large right pleural effusion PROCEDURE: Procedure and risks were explained. Informed consent was obtained. A final timeout was com pleted. The right posterior thorax was prepped and draped in sterile fashion. 1% lidocaine was utiliz ed for skin anesthesia. Utilizing ultrasound guidance, a 5 Turkmen safety centesis catheter was advanced into the right pleura l effusion. Ultrasound images were obtained. A total of 1.2 L of sergio-colored fluid was removed and sent to the lab. The catheter was removed and Band-Aid applied. The patient tolerated the procedure w ell. A chest x-ray will be obtained and vital signs will be monitored postprocedure. IMPRESSION: Ultrasound-guided right thoracentesis as above. Performed, dictated, and signed by Esvin Chance PA-C; to be co-signed by Dr. Richy Connor. Electronically signed by: Richy Connor M.D. 02/12/2024 1:46 PM
[2024-02-12 14:32] LABS: Appearance Pleural Fluid Bloody; Color Pleural Fluid Red; Lymphocytes, Fluid 35 %; Mono,Macrophage,Mesothelial 49 %; Neutrophils, Fluid 16 %; RBC Pleural Fluid Auto < 2000 /uL; Source Pleural Fluid Right Lung; WBC Pleural Fluid Auto < 10 /uL
--- NOTE | 2024-02-12 14:55 | Hospitalist Progress Note ---
Date of Service February 12, 2024 Assessment & Plan (1) Pericardial effusion: Plan 68 y/o male with PMH of CAD s/p recent CABG, aortic stenosis s/p recent AVR, CLL, DM2, ALIE (not using CPAP), dyslipidemia presented to the ED 02/08 with progressive LE edema and worsening dyspnea on exertion since being discharged after recent CABGx4/AVR. Weight is up 10-12 lbs from recent discharge. BNP elevated at 499, initial trop 30.6, repeat 28.2. Echo done in the ED showed pericardial effusion but no tamponade, preserved EF. 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 Weight was up by 10-12 lbs. ECHO w/ EF of 60-65%; no regional WMA, small circumferential pericardial effusion, no tamponade. Discussed with Plate Colorer. Recommendations noted Diuretics per Cardiology Daily weights, I/O Continue colchicine S/P Right thoracentesis of 1.2L Possible pneumonia on Admitting CXR which noted b/l pl effusion and bibasilar densities s/o pna. Recent surgery is risk factor for pna. Continue ceftriaxone and doxycycline started on 02/09. Paroxysmal Afib Overnight of 02/12/24 CT PE was negative Cards recs noted. Cards recommends no Anticoagulation for now given pericardial effusion and limited duration of Afib Currently sinus Diabetes mellitus type 2 in obese: Chronic, stable Insulin sliding scale, holding Metformin, repaglinide Diabetic diet BSG ACHS Obstructive sleep apnea: Not currently on CPAP and denies need for retrial of this at this time CLL (chronic lymphocytic leukemia): Chronic, stable Follows with oncology Q4 months - monitoring clinically, labs stable GERD (gastroesophageal reflux disease): Chronic, stable Continue once daily PPI BPH (benign prostatic hyperplasia): Chronic, stable Continue tamsulosin Dyslipidemia: Chronic, stable Continue statin therapy Code Status: Full code DVT Prophylaxis: Lovenox on hold for procedure I spent a total of 45 minutes coordinating, documenting and providing care for this patient excluding time spent in performance of separately billed services Admission and Anticipated Discharge Date Admission Date: February 09, 2024 Subjective Patient seen and examined Reported poor sleep last night due to a transient episode of Afib Still has leg swelling No new complaints Physical Exam Constitutional: + well hydrated; no acute distress Eyes: PERRL, conjunctivae normal, anicteric sclerae ENMT: external ear and nose normal, oropharynx normal Respiratory: On room air, diminished breath sounds lung bases Cardiovascular: Rate/Rhythm: regular rate and regular rhythm Gastrointestinal (Abdomen): normal bowel sounds, soft, nontender, no hepatosplenomegaly Musculoskeletal: +bilateral pedal edema Neurologic: PERRL, EOMI, accommodation nl, no face palsy, no dysarthria Psychiatric: A+Ox3, euthymic affect Results & Data Results & Data Vital Signs (Past 12 Hours) Vital Signs Temp Pulse Pulse Resp BP Pulse Ox O2 Del Method 02/12/24 11:08 36.6 C 70 19 117/71 95 Room Air 02/12/24 09:15 72 02/12/24 07:30 69 02/12/24 07:18 36.8 C 67 19 117/68 96 Room Air Laboratory Results Abnormal lab results 02/11/24 02/11/24 02/12/24 Range/Units 16:04 20:02 05:28 WBC 55.62 H* (4.8-10.8) K/ul RBC 3.02 L (4.70-6.10) M/uL Hgb 9.2 L (14.0-18.0) g/dl Hct 30.3 L (42.0-52.0) % MCV 100.3 H (80.0-100.0) fL MCHC 30.4 L (32.0-36.0) g/dL RDW Std Deviation 57.8 H (36.4-46.3) fL RDW Coeff of Lindsey 16.1 H (11.5-14.5) % PT 12.1 H (9.0-12.0) Seconds BUN/Creatinine Ratio 29.7 H (10-20) Glucose 135 H (70-99(Fasting)) mg/dl POC Glucose 137 H 163 H (70-99) mg/dl Calcium 8.3 L (8.6-10.3) mg/dl Total Protein 5.9 L (6.0-8.3) gm/dl Pleural pH (7.3-7.4) 02/12/24 02/12/24 02/12/24 Range/Units 07:17 11:07 12:00 WBC (4.8-10.8) K/ul RBC (4.70-6.10) M/uL Hgb (14.0-18.0) g/dl Hct (42.0-52.0) % MCV (80.0-100.0) fL MCHC (32.0-36.0) g/dL RDW Std Deviation (36.4-46.3) fL RDW Coeff of Lindsey (11.5-14.5) % PT (9.0-12.0) Seconds BUN/Creatinine Ratio (10-20) Glucose (70-99(Fasting)) mg/dl POC Glucose 144 H 143 H (70-99) mg/dl Calcium (8.6-10.3) mg/dl Total Protein (6.0-8.3) gm/dl Pleural pH 7.54 H (7.3-7.4) /03/01 Range/Units 12:43 WBC (4.8-10.8) K/ul RBC (4.70-6.10) M/uL Hgb (14.0-18.0) g/dl Hct (42.0-52.0) % MCV (80.0-100.0) fL MCHC (32.0-36.0) g/dL RDW Std Deviation (36.4-46.3) fL RDW Coeff of Lindsey (11.5-14.5) % PT (9.0-12.0) Seconds BUN/Creatinine Ratio (10-20) Glucose (70-99(Fasting)) mg/dl POC Glucose 109 H (70-99) mg/dl Calcium (8.6-10.3) mg/dl Total Protein (6.0-8.3) gm/dl Pleural pH (7.3-7.4)
--- NOTE | 2024-02-12 16:35 | Communication Note ---
Date of Service: February 12, 2024 US guided R thoracentesis performed today yielding 1.2 L of sergio fluid. DVT prophylaxis held for thoracentesis. Anticipate left thoracentesis on 02/12. Discussed with Dr Odell, in preparation for left thoracentesis, will administer SQ heparin 5000 units x 1 now , rather than lovenox. Will need to resume with new order tomorrow after procedure. Will hold diuretic dose today and await BP and creatinine data for tomorrow given contrast on evening of 02/11/24. On telemetry had 1 hour of AF evening of 02/10 , none in mean time. Jelena Ellington DO
[2024-02-12] MEDS: POLYETHYLENE (MIRALAX) 17 GM PACK PO PRN (17:16)
[2024-02-12] MEDS: HEPARIN SOD 5,000 UNIT/0.5 ML VIAL SQ STA (17:21)
[2024-02-13] MEDS: METOPROLOL TARTRATE 1 MG/ML VIAL IV STA (06:00)
--- NOTE | 2024-02-13 06:04 | Electrocardiogram Report ---
Test Reason : Blood Pressure : / mmHG Vent. Rate : 069 BPM Atrial Rate : 069 BPM P-R Int : 154 ms QRS Dur : 124 ms QT Int : 458 ms P-R-T Axes : 056 031 079 degrees QTc Int : 490 ms Normal sinus rhythm Non-specific intra-ventricular conduction delay Borderline ECG When compared with ECG of 09-FEB-2024 09:52, Fusion complexes are no longer Present Confirmed by Reymundo Cordero ([id number]) on 02/13/2024 6:03:53 AM Referred By: Bacilio Morejon Confirmed By:Reymundo Cordero
[2024-02-13 06:40] LABS: Hematocrit (blood only) 31.4 % (42.0-52.0); Hemoglobin 9.7 g/dl (14.0-18.0); Mean Corpuscular Hemoglobin 30.8 pg (25.0-34.0); Mean Corpuscular Hgb Conc 30.9 g/dL (32.0-36.0); Mean Corpuscular Volume 99.7 fL (80.0-100.0); Mean Platelet Volume 10.5 fL (9.4-12.4); Platelet Count 221 K/uL (130-400); RDW Coefficient of Variation 16.3 % (11.5-14.5); RDW Standard Deviation 58.2 fL (36.4-46.3); Red Blood Count 3.15 M/uL (4.70-6.10); White Blood Count 53.82 K/ul (4.8-10.8)
[2024-02-13 06:50] LABS: BUN Creatinine Ratio 25.8 (10-20); Calcium 8.5 mg/dl (8.6-10.3); Creatinine Clr Calc Pharmacy 133.8 ml/min; Est GFR (African American) 115.1 ml/min; Est GFR (Non-African American) 99.3 ml/min; Potassium 4.6 mmol/L (3.5-5.1)
[2024-02-13] MEDS ORDERED: STAT IV Infusion **Titration per Protocol STA (09:57)
[2024-02-13] MEDS ORDERED: AMIODARONE IV BOLUS & DRIP IV STA (09:57)
[2024-02-13] MEDS ORDERED: 0.2 MICRON FILTER SET 1 EACH IV STA (09:57)
--- NOTE | 2024-02-13 10:23 | Cardiology Progress Note ---
Date of Service February 13, 2024 Assessment & Plan (1) Atrial flutter, paroxysmal: (2) Acute heart failure with preserved ejection fraction (HFpEF): (3) Pericardial effusion: (4) CLL (chronic lymphocytic leukemia): Plan * Patient reverted to atrial flutter overnight. Recommend IV amiodarone 150 mg x 1 now followed by continuous infusion. * Given small to moderate circumferential pericardial effusion, need to be cautious not to overdiuresis. 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 * Chronic leukocytosis noted consistent with patient's history of CLL. * Continue aspirin, amiodarone, metoprolol, potassium chloride, rosuvastatin, Flomax. * Holding furosemide this am, right-sided thoracentesis performed 02/12/2024, left side thoracentesis scheduled this a.m. 02/13/2024 * Per review of the patient's recent discharge summary he had been noted to have postoperative atrial fibrillation and had converted to sinus rhythm spontaneously postoperatively and therefore was discharged on a 30-day course of amiodarone. * Hold off on anticoagulation at present given the pericardial effusion and limited duration of atrial fibrillation/flutter. * Will discuss timing of resuming DVT prophylaxis dose lovenox with pulmonary post procedure. Admission and Anticipated Discharge Date Admission Date: February 09, 2024 Subjective Patient seen and examined at the bedside. Converted to atrial flutter at a rate of approximate 120 bpm this morning 4:30 AM. Denies palpitations or lightheadedness. No chest discomfort. Fluid balance -445 cc. Furosemide currently on hold. Review of Systems Review of Systems: All systems reviewed & are unremarkable except as noted in Subjective Physical Exam Constitutional: well nourished and + ill appearing; no acute distress Respiratory: no respiratory distress, no labored breathing and no retractions Auscultation: + diminished lung sounds (Bases bilateral left > right) and + rales (Bases) Cardiovascular: Rate/Rhythm: regular rate, regular rhythm and + tachycardic Heart Sounds: normal S1, normal S2 and + murmur (1/6 systolic ejection murmur) Extremities: + edema (1+ bilateral pedal and ankle edema) Gastrointestinal (Abdomen): Inspection/Auscultation: normal bowel sounds; abdomen not distended Percussion/Palpation: abdomen soft; abdomen nontender, no guarding and abdomen not rigid Neurologic: CN's II-XI intact bilaterally and moves all extremities; no focal motor deficits Results & Data Vital Signs (Past 12 Hours) Vital Signs Temp Pulse Pulse Pulse Resp BP BP 02/13/24 08:43 117 H 02/13/24 06:27 120 H 113/71 02/13/24 06:15 116 H 113/71 02/13/24 06:00 118 H 106/67 02/13/24 04:56 117 H 18 110/70 02/13/24 03:01 36.7 C 67 18 113/65 02/13/24 00:05 69 17 02/12/24 23:06 68 02/12/24 23:00 36.7 C 67 18 129/67 Pulse Ox O2 Del Method O2 Flow Rate FiO2 02/13/24 08:43 02/13/24 06:27 02/13/24 06:15 02/13/24 06:00 02/13/24 04:56 95 Room Air 02/13/24 03:01 98 Nasal Cannula 1 02/13/24 00:05 93 21 02/12/24 23:06 02/12/24 23:00 95 Room Air Laboratory Results CBC 02/13/24 Range/Units 05:56 WBC 53.82 H* (4.8-10.8) K/ul RBC 3.15 L (4.70-6.10) M/uL Hgb 9.7 L (14.0-18.0) g/dl Hct 31.4 L (42.0-52.0) % Plt Count 221 (130-400) K/uL Comprehensive Metabolic Panel 02/13/24 Range/Units 05:56 Sodium 136 (136-145) mmol/L Potassium 4.6 (3.5-5.1) mmol/L Chloride 102 (98-107) mmol/L Carbon Dioxide 28 (21-32) mmol/L BUN 17 (6-23) mg/dl Creatinine 0.66 (0.6-1.4) mg/dl Glucose 149 H (70-99(Fasting)) mg/dl Calcium 8.5 L (8.6-10.3) mg/dl Intake and Output 02/12/24 02/13/24 02/13/24 22:59 06:59 14:59 Intake Total 325 / 980 125 / 980 50 / 50 Output Total 525 / 1425 375 / 1425 Balance -200 / -445 -250 / -445 50 / 50 Intake: IV 50 / 50 cefTRIAXone SODIUM 2,000 mg In 50 / 50 50 ml @ 100 mls/hr IV Q24H [facility] Rx#:[id number] Oral 325 / 930 125 / 930 Output: Urine 106 / 1425 771 / 1425 Other: Weight 107.8 kg Weight Measurement Method Standing Scale
[2024-02-13] MEDS: AMIODARONE / D5W 150 MG/100 ML BAG IV STA (11:05)
--- NOTE | 2024-02-13 11:05 | XRay Report ---
XR chest 1V not portable HISTORY: Status post left thoracentesis. COMPARISON: Chest 02/12/2024. FINDINGS: Status post left thoracentesis with resolution of the left pleural effusion. No pneumothora x. A small right pleural effusion persists. The heart remains enlarged. There are poststernotomy dubose ges and a cardiac valve prosthesis again noted. There is mild central pulmonary vascular congestion w ithout overt edema. Thoracolumbar spinal fusion hardware again noted. No acute fractures. Right basil ar densities persist and may represent atelectasis from the pleural effusion. IMPRESSION: 1. Interval resolution of the left pleural effusion status post thoracentesis. No pneumothorax. 2. A small right pleural effusion and right basilar densities persist ACT 112: Negative or not required by law. Electronically signed by: Kleber Wick M.D. 02/13/2024 11:03 AM
[2024-02-13] MEDS: AMIODARONE / D5W 360 MG/200 ML BAG IV ONE (11:10)
--- NOTE | 2024-02-13 11:19 | Pulmonology Progress Note ---
Date of Service February 13, 2024 Assessment & Plan (1) Acute heart failure with preserved ejection fraction (HFpEF): (2) Pericardial effusion: (3) CLL (chronic lymphocytic leukemia): (4) Obstructive sleep apnea: (5) Shortness of breath: Plan Chest x-ray 02/11/2024 personally reviewed: PA/lateral view, blunting of bilateral costophrenic and cardiophrenic angles, increased cardiac silhouette Mild improvement compared to 02/09/2024 2D echo 02/09/2024: EF 60-65%, small circumferential pericardial effusion, moderate concentric LVH, grade 2 diastolic dysfunction -- Bilateral pleural effusion R>L S/p right-sided thoracentesis 02/12/2024, exudative as per lights criteria, 1.2 L of fluid was removed BNP 499 with grade 2 diastolic dysfunction No clear signs of pneumonia Etiology is likely recent aortic valve replacement with open heart surgery. HFpEF also playing a role POCUS 02/11/2024 did show moderate to large right-sided pleural effusion and small to moderate left-sided pleural effusion with dependent atelectasis --ALIE Not using CPAP -- CLL Not on any treatment Plan: In/out: -5.2 L since coming to the hospital. For left-sided thoracentesis today. Okay to start the patient on anticoagulation later in the afternoon. CPAP will also be beneficial in opening the lungs and diuresis Please note the above document was generated using voice recognition software. It may contain grammatical, syntax or spelling errors.Any formal questions or concerns about the content, text or information contained within the body of this dictation should be directly addressed to the provider for clarification. Admission and Anticipated Discharge Date Admission Date: February 09, 2024 Subjective Patient seen and examined at bedside. No acute distress. Patient is still having runs of A-fib. No nausea vomiting Did not get a good night sleep. Denies any headache. Has been urinating well. Saturating 94% on room air with heart rate 107 Patient's was also in the room at the time of examination Review of Systems 2 Review of Systems: All systems reviewed & are unremarkable except as noted in Subjective Physical Exam 2 Physical Exam: Constitutional: No acute distress HEENT: EOMI, PERRLA Respiratory system: Decreased air entry bilaterally, no wheeze, rhonchi, positive crackles bilateral lower lobes CVS: S1-S2 positive, no murmurs or gallops, distant heart sounds Abdomen: Soft, nontender, nondistended, positive bowel sounds x4 Extremities: +2 pulses bilaterally radialis/ dorsalis pedis, no cyanosis, +2 pitting edema bilateral lower extremity Neuro: Awake alert oriented x3 Psych: Normal mood and affect G/U: No [place] Skin: no rashes, warm and dry Lymphatic: no cervical or axillary lymphadenopathy Results & Data Results & Data Vital Signs (Past 12 Hours) Vital Signs Temp Pulse Pulse Pulse Resp BP BP 02/13/24 08:43 117 H 02/13/24 06:27 120 H 113/71 02/13/24 06:15 116 H 113/71 02/13/24 06:00 118 H 106/67 02/13/24 04:56 117 H 18 110/70 02/13/24 03:01 36.7 C 67 18 113/65 02/13/24 00:05 69 17 Pulse Ox O2 Del Method O2 Flow Rate FiO2 02/13/24 08:43 02/13/24 06:27 02/13/24 06:15 02/13/24 06:00 02/13/24 04:56 95 Room Air 02/13/24 03:01 98 Nasal Cannula 1 02/13/24 00:05 93 21 Laboratory Results 02/13/24 05:56 02/13/24 05:56 PG Care Time/CCT Total # of Minutes Spent Total Time Spent with Patient: Total time spent is greater than 50% in coordination of care (as documented) at patient's floor/unit and/or counseling patient: Coding Level of Care Code 73893 SUB INP/OBS CARE 2/35MIN Diagnoses Acute heart failure with preserved ejection fraction (HFpEF) I50.31 Pericardial effusion I31.39 CLL (chronic lymphocytic leukemia) C91.10 Obstructive sleep apnea G47.33 Shortness of breath R06.02
[2024-02-13 11:43] LABS: Total Protein Pleural Fluid 3.2 gm/dl
[2024-02-13 11:46] LABS: Appearance Pleural Fluid Cloudy; Color Pleural Fluid Red; RBC Pleural Fluid Auto 74000 /uL; Source Pleural Fluid Left Lung; WBC Pleural Fluid Auto 1490 /uL
--- NOTE | 2024-02-13 11:59 | Hospitalist Progress Note ---
Date of Service February 13, 2024 Assessment & Plan (1) Pericardial effusion: Plan 68 y/o male with PMH of CAD s/p recent CABG, aortic stenosis s/p recent AVR, CLL, DM2, ALIE (not using CPAP), dyslipidemia presented to the ED 02/08 with progressive LE edema and worsening dyspnea on exertion since being discharged after recent CABGx4/AVR. Weight is up 10-12 lbs from recent discharge. BNP elevated at 499, initial trop 30.6, repeat 28.2. Echo done in the ED showed pericardial effusion but no tamponade, preserved EF. He is being managed for the following: Acute heart failure with preserved ejection fraction (HFpEF): Pericardial effusion, possible post pericardiotomy syndrome Pleural effusion BNP elevated at presentation. Weight was up by 10-12 lbs. ECHO w/ EF of 60-65%; no regional WMA, small circumferential pericardial effusion, no tamponade. Gun Mechanic's recommendations noted Diuretics per Cardiology Daily weights, I/O Continue colchicine S/P Right thoracentesis of 1.2L on 02/12/24 Planned for Left thoracentesis today Possible pneumonia on Admitting CXR which noted b/l pl effusion and bibasilar densities s/o pna. Recent surgery is risk factor for pna. Continue ceftriaxone and doxycycline started on 02/09. Paroxysmal Afib Overnight of 02/12/24 CT PE was negative Cards recs noted. Currently in Afib Cards recommends holding off anticoag at this time in view of pericardial effusion Amiodarone IV started by Cardiology today Diabetes mellitus type 2 in obese: Chronic, stable Insulin sliding scale, holding Metformin, repaglinide Diabetic diet BSG ACHS Obstructive sleep apnea: Not currently on CPAP and denies need for retrial of this at this time CLL (chronic lymphocytic leukemia): Chronic, stable Follows with oncology Q4 months - monitoring clinically, labs stable GERD (gastroesophageal reflux disease): Chronic, stable Continue once daily PPI BPH (benign prostatic hyperplasia): Chronic, stable Continue tamsulosin Dyslipidemia: Chronic, stable Continue statin therapy Code Status: Full code DVT Prophylaxis: Got hep sq x 1 yesterday. Lovenox on hold for procedure I spent a total of 50 minutes coordinating, documenting and providing care for this patient excluding time spent in performance of separately billed services Admission and Anticipated Discharge Date Admission Date: February 09, 2024 Subjective Patient seen and examined Reports leg swelling is improving Reports mild LAYNE No chest pain, palpitation or dizziness Flipped into Afib since 4.41AM today Physical Exam Constitutional: + well hydrated; no acute distress Eyes: PERRL, conjunctivae normal, anicteric sclerae ENMT: external ear and nose normal, oropharynx normal Respiratory: Not in respiratory distress. Diminished breath sounds lung bases Cardiovascular: Rate/Rhythm: + irregularly irregular Gastrointestinal (Abdomen): normal bowel sounds, soft, nontender, no hepatosplenomegaly Musculoskeletal: +b/l pitting pedal edema Neurologic: PERRL, EOMI, accommodation nl, no face palsy, no dysarthria Psychiatric: A+Ox3, euthymic affect Results & Data Results & Data Vital Signs (Past 12 Hours) Vital Signs Temp Pulse Pulse Pulse Resp BP BP 02/13/24 08:43 117 H 02/13/24 06:27 120 H 113/71 02/13/24 06:15 116 H 113/71 02/13/24 06:00 118 H 106/67 02/13/24 04:56 117 H 18 110/70 02/13/24 03:01 36.7 C 67 18 113/65 02/13/24 00:05 69 17 Pulse Ox O2 Del Method O2 Flow Rate FiO2 02/13/24 08:43 02/13/24 06:27 02/13/24 06:15 02/13/24 06:00 02/13/24 04:56 95 Room Air 02/13/24 03:01 98 Nasal Cannula 1 02/13/24 00:05 93 21 Laboratory Results Abnormal lab results 02/12/24 02/12/24 02/13/24 Range/Units 16:07 19:52 05:56 WBC 53.82 H* (4.8-10.8) K/ul RBC 3.15 L (4.70-6.10) M/uL Hgb 9.7 L (14.0-18.0) g/dl Hct 31.4 L (42.0-52.0) % MCHC 30.9 L (32.0-36.0) g/dL RDW Std Deviation 58.2 H (36.4-46.3) fL RDW Coeff of Lindsey 16.3 H (11.5-14.5) % BUN/Creatinine Ratio 25.8 H (10-20) Glucose 149 H (70-99(Fasting)) mg/dl POC Glucose 151 H 141 H (70-99) mg/dl Calcium 8.5 L (8.6-10.3) mg/dl Pleural pH (7.3-7.4) 02/13/24 02/13/24 02/13/24 Range/Units 07:25 11:36 Unknown WBC (4.8-10.8) K/ul RBC (4.70-6.10) M/uL Hgb (14.0-18.0) g/dl Hct (42.0-52.0) % MCHC (32.0-36.0) g/dL RDW Std Deviation (36.4-46.3) fL RDW Coeff of Lindsey (11.5-14.5) % BUN/Creatinine Ratio (10-20) Glucose (70-99(Fasting)) mg/dl POC Glucose 186 H 248 H (70-99) mg/dl Calcium (8.6-10.3) mg/dl Pleural pH 7.55 H (7.3-7.4)
[2024-02-13 12:19] LABS: Lymphocytes, Fluid 36 %; Mono,Macrophage,Mesothelial 61 %; Neutrophils, Fluid 3 %
--- NOTE | 2024-02-13 12:31 | Ultrasound Report ---
ULTRASOUND-GUIDED THORACENTESIS CLINICAL HISTORY: Large left pleural effusion PROCEDURE: Procedure and risks were explained. Informed consent was obtained. A final timeout was com pleted. The left posterior thorax was prepped and draped in sterile fashion. 1% lidocaine was utilize d for skin anesthesia. Utilizing ultrasound guidance, a 5 [place]ian safety centesis catheter was advanced into the left pleural effusion. Ultrasound images were obtained. A total of 800 mL of sergio-colored fluid was removed and sent to the lab. The catheter was removed and Band-Aid applied. The patient tolerated the procedure w ell. A chest x-ray will be obtained and vital signs will be monitored postprocedure. IMPRESSION: Ultrasound-guided left thoracentesis as above. Performed, dictated, and signed by Esvin Chance PA-C; to be co-signed by Dr. Reddy Hua. Electronically signed by: Reddy Hua M.D. 02/13/2024 2:28 PM
[2024-02-13] MEDS: AMIODARONE / D5W 360 MG/200 ML BAG IV SCH (16:11)
[2024-02-13] MEDS: ACETAMINOPHEN 325 MG TAB PO PRN (18:49)
[2024-02-13] MEDS ORDERED: ROSUVASTATIN CALCIUM 10 MG TAB PO SCH (21:00)
--- NOTE | 2024-02-14 06:13 | Electrocardiogram Report ---
Test Reason : Blood Pressure : / mmHG Vent. Rate : 106 BPM Atrial Rate : 220 BPM P-R Int : 000 ms QRS Dur : 122 ms QT Int : 388 ms P-R-T Axes : 000 005 101 degrees QTc Int : 515 ms Atrial fibrillation with rapid ventricular response Non-specific intra-ventricular conduction delay Abnormal ECG When compared with ECG of 10-FEB-2024 05:03, Atrial fibrillation has replaced Sinus rhythm Vent. rate has increased BY 37 BPM Confirmed by Reymundo Cordero ([id number]) on 02/14/2024 6:13:16 AM Referred By: Bacilio Morejon Confirmed By:Reymundo Cordero
--- NOTE | 2024-02-14 06:15 | Electrocardiogram Report ---
Test Reason : Blood Pressure : / mmHG Vent. Rate : 117 BPM Atrial Rate : 234 BPM P-R Int : 000 ms QRS Dur : 120 ms QT Int : 356 ms P-R-T Axes : 054 002 099 degrees QTc Int : 496 ms Atrial flutter with variable A-V block Non-specific intra-ventricular conduction delay Nonspecific T wave abnormality Abnormal ECG When compared with ECG of 11-FEB-2024 23:08, Atrial flutter has replaced Atrial fibrillation Confirmed by Reymundo Cordero ([id number]) on 02/14/2024 6:15:18 AM Referred By: Bacilio Morejon Confirmed By:Reymundo Cordero
--- NOTE | 2024-02-14 07:21 | XRay Report ---
SINGLE VIEW CHEST CLINICAL HISTORY: Pleural effusions. FINDINGS: An AP, portable, upright chest radiograph is compared to study dated 02/13/2024 and correlate d with chest CT dictated 02/12/2024. The patient is status post midline sternotomy. The heart is enlarg ed and noting atherosclerotic calcification of the thoracic aorta. There is mild pulmonary vascular c ongestion. There are right larger than left pleural effusions with dependent consolidation. No pneumo thorax is seen. The skeletal structures are osteopenic. Arthritic change is noted in the shoulders wi th postsurgical change noted on the left. Fusion hardware is seen at the thoracolumbar junction. IMPRESSION: 1. Cardiomegaly with mild pulmonary vascular congestion. 2. Right larger than left pleural effusions with dependent consolidation. This is similar to yesterda y. ACT 112: Negative or not required by law. Electronically signed by: Reddy Hua M.D. 02/14/2024 7:19 AM
[2024-02-14 08:00] LABS: Albumin Level 3.3 gm/dl (3.4-5.0); BUN Creatinine Ratio 26.6 (10-20); Bilirubin Direct 0.2 mg/dl (0-0.2); Bilirubin,Total 0.7 mg/dl (0.2-1.0); Calcium 8.2 mg/dl (8.6-10.3); Creatinine Clr Calc Pharmacy 137.5 ml/min; Est GFR (African American) 116.6 ml/min; Est GFR (Non-African American) 100.6 ml/min; Phosphorus 3.5 mg/dl (2.5-4.9); Potassium 4.4 mmol/L (3.5-5.1); Total Protein 5.5 gm/dl (6.0-8.3)
[2024-02-14 08:21] LABS: Hematocrit (blood only) 30.5 % (42.0-52.0); Hemoglobin 9.4 g/dl (14.0-18.0); Mean Corpuscular Hemoglobin 30.8 pg (25.0-34.0); Mean Corpuscular Hgb Conc 30.8 g/dL (32.0-36.0); Mean Platelet Volume 10.4 fL (9.4-12.4); Platelet Count 208 K/uL (130-400); RDW Coefficient of Variation 16.2 % (11.5-14.5); RDW Standard Deviation 57.9 fL (36.4-46.3); Red Blood Count 3.05 M/uL (4.70-6.10); White Blood Count 54.16 K/ul (4.8-10.8)
--- NOTE | 2024-02-14 10:37 | Pulmonology Progress Note ---
Date of Service February 14, 2024 Assessment & Plan (1) Acute heart failure with preserved ejection fraction (HFpEF): (2) Pericardial effusion: (3) CLL (chronic lymphocytic leukemia): (4) Obstructive sleep apnea: (5) Shortness of breath: Plan Chest x-ray 02/11/2024 personally reviewed: PA/lateral view, blunting of bilateral costophrenic and cardiophrenic angles, increased cardiac silhouette Mild improvement compared to 02/09/2024 2D echo 02/09/2024: EF 60-65%, small circumferential pericardial effusion, moderate concentric LVH, grade 2 diastolic dysfunction -- Bilateral pleural effusion R>L S/p right-sided thoracentesis 02/12/2024, exudative as per lights criteria, 1.2 L of fluid was removed S/p left-sided thoracentesis 02/13/2024, exudative, 800 mL fluid was removed BNP 499 with grade 2 diastolic dysfunction No clear signs of pneumonia Etiology is likely recent aortic valve replacement with open heart surgery. HFpEF also playing a role POCUS 02/11/2024 did show moderate to large right-sided pleural effusion and small to moderate left-sided pleural effusion with dependent atelectasis --ALIE Not using CPAP -- CLL Not on any treatment Plan: In/out: -5.6 L since coming to the hospital. Chest x-ray from today shows returning of the pleural effusion on the right side. Pulmonary vascular is congestion persists Continue with diuresis to keep the patient negative balance. CPAP will also be beneficial in opening the lungs and diuresis No further recommendation from pulmonary perspective, will sign off Please call directly with any questions Please note the above document was generated using voice recognition software. It may contain grammatical, syntax or spelling errors.Any formal questions or concerns about the content, text or information contained within the body of this dictation should be directly addressed to the provider for clarification. Admission and Anticipated Discharge Date Admission Date: February 09, 2024 Subjective Patient seen and examined at bedside. No acute distress, no acute events overnight. He was saturating 98% on room air. Patient's was also in the room History is feeling much better after the pleural fluid was removed from both sides. He has been urinating well Was not able to tolerate the CPAP. Denies any headache, no nausea, no vomiting Her appetite Review of Systems 2 Review of Systems: All systems reviewed & are unremarkable except as noted in Subjective Physical Exam 2 Physical Exam: Constitutional: No acute distress HEENT: EOMI, PERRLA Respiratory system: Decreased air entry bilaterally, no wheeze, no rhonchi, positive crackles bilateral lower lobes CVS: S1-S2 positive, no murmurs or gallops, distant heart sounds Abdomen: Soft, nontender, nondistended, positive bowel sounds x4 Extremities: +2 pulses bilaterally radialis/ dorsalis pedis, no cyanosis, +2 pitting edema bilateral lower extremity Neuro: Awake alert oriented x3 Psych: Normal mood and affect G/U: No [place] Skin: no rashes, warm and dry Lymphatic: no cervical or axillary lymphadenopathy Results & Data Results & Data Vital Signs (Past 12 Hours) Vital Signs Temp Pulse Pulse Pulse Resp BP BP 02/14/24 08:00 36.8 C 75 77 18 125/71 02/14/24 07:28 02/14/24 03:05 36.9 C 66 17 111/67 02/14/24 00:00 66 115/68 02/13/24 23:41 67 114/67 02/13/24 23:00 65 02/13/24 22:49 36.6 C 66 18 114/65 Pulse Ox O2 Del Method 02/14/24 08:00 93 Room Air 02/14/24 07:28 Room Air 02/14/24 03:05 95 Room Air 02/14/24 00:00 02/13/24 23:41 02/13/24 23:00 02/13/24 22:49 96 Room Air Laboratory Results 02/14/24 06:17 02/14/24 06:17 PG Care Time/CCT Total # of Minutes Spent Total Time Spent with Patient: Total time spent is greater than 50% in coordination of care (as documented) at patient's floor/unit and/or counseling patient: Coding Level of Care Code 99064 SUB INP/OBS CARE 2/35MIN Diagnoses Acute heart failure with preserved ejection fraction (HFpEF) I50.31 Pericardial effusion I31.39 CLL (chronic lymphocytic leukemia) C91.10 Obstructive sleep apnea G47.33 Shortness of breath R06.02
--- NOTE | 2024-02-14 14:48 | Hospitalist Progress Note ---
Date of Service February 14, 2024 Assessment & Plan (1) Pericardial effusion: Plan 68 y/o male with PMH of CAD s/p recent CABG, aortic stenosis s/p recent AVR, CLL, DM2, ALIE (not using CPAP), dyslipidemia presented to the ED 02/08 with progressive LE edema and worsening dyspnea on exertion since being discharged after recent CABGx4/AVR. Weight is up 10-12 lbs from recent discharge. BNP elevated at 499, initial trop 30.6, repeat 28.2. Echo done in the ED showed pericardial effusion but no tamponade, preserved EF. He is being managed for the following: Acute heart failure with preserved ejection fraction (HFpEF): Pericardial effusion, possible post pericardiotomy syndrome Pleural effusion BNP elevated at presentation. Weight was up by 10-12 lbs. ECHO w/ EF of 60-65%; no regional WMA, small circumferential pericardial effusion, no tamponade. Retail Sales Representative's recommendations noted Diuretics per Cardiology Daily weights, I/O Continue colchicine S/P Right thoracentesis of 1.2L on 02/12/24 Planned for Left thoracentesis today Possible pneumonia on Admitting CXR which noted b/l pl effusion and bibasilar densities s/o pna. Recent surgery is risk factor for pna. Continue ceftriaxone and doxycycline started on 02/09. Paroxysmal Afib Overnight of 02/12/24 CT PE was negative Cards recs noted. Currently in Afib Cards recommends holding off anticoag at this time in view of pericardial effusion Amiodarone IV started by Cardiology today Diabetes mellitus type 2 in obese: Chronic, stable Insulin sliding scale, holding Metformin, repaglinide Diabetic diet BSG ACHS Obstructive sleep apnea: Not currently on CPAP and denies need for retrial of this at this time CLL (chronic lymphocytic leukemia): Chronic, stable Follows with oncology Q4 months - monitoring clinically, labs stable GERD (gastroesophageal reflux disease): Chronic, stable Continue once daily PPI BPH (benign prostatic hyperplasia): Chronic, stable Continue tamsulosin Dyslipidemia: Chronic, stable Continue statin therapy Code Status: Full code DVT Prophylaxis: Got hep sq x 1 yesterday. Lovenox on hold for procedure I spent a total of 50 minutes coordinating, documenting and providing care for this patient excluding time spent in performance of separately billed services Admission and Anticipated Discharge Date Admission Date: February 09, 2024 Subjective Patient seen and examined No new complaints today Leg swelling continues to improve Had Left thoracentesis yesterday Physical Exam Constitutional: + well hydrated; no acute distress Eyes: PERRL, conjunctivae normal, anicteric sclerae ENMT: external ear and nose normal, oropharynx normal Cardiovascular: Rate/Rhythm: regular rate, regular rhythm and + irregularly irregular Gastrointestinal (Abdomen): normal bowel sounds, soft, nontender, no hepatosplenomegaly Neurologic: PERRL, EOMI, accommodation nl, no face palsy, no dysarthria Psychiatric: A+Ox3, euthymic affect Results & Data Results & Data Vital Signs (Past 12 Hours) Vital Signs Temp Pulse Pulse Pulse Resp BP Pulse Ox 02/14/24 11:00 36.5 C 63 67 20 131/65 96 02/14/24 08:00 36.8 C 75 77 18 125/71 93 02/14/24 07:28 02/14/24 07:00 66 02/14/24 03:05 36.9 C 66 17 111/67 95 O2 Del Method 02/14/24 11:00 Room Air 02/14/24 08:00 Room Air 02/14/24 07:28 Room Air 02/14/24 07:00 02/14/24 03:05 Room Air
--- NOTE | 2024-02-14 14:58 | Cardiology Progress Note ---
<Statement entered by Nuzhat Steward MD - 02/14/24 19:24> I have reviewed the advanced practitioner's documentation on the date of service referenced in note, and I agree with, and take responsibility for the plan of care. I spent a total of [10] minutes coordinating, documenting, and providing care for this patient excluding time spent in the performance of separately billed services or time spent by another provider. Date of Service February 14, 2024 Assessment & Plan (1) Atrial flutter, paroxysmal: (2) Acute heart failure with preserved ejection fraction (HFpEF): (3) Pericardial effusion: (4) CLL (chronic lymphocytic leukemia): Plan 68 year old male with multivessel coronary heart disease as well as severe aortic stenosis for which she had recently undergone CABG X 4 (JOHNSON to LAD; SVG to RAMUS, OM, LPDA), AVR with 25mm Inspiris Valve performed 01/29/[address] Parsons at [facility] [place]. Atrial flutter status post conversion back to sinus on 02/13/2024 at 12:29:00. On amiodarone. Check EKG. Risks of anticoagulation felt to be greater than the benefit at least in the short term (pericardial effusion, limited duration) Volume overload. Need to be cautious not to overdiuresis. Restart oral furosemide, 40 mg twice a day for now. Supplement potassium orally. Moderate circumferential pericardial effusion. Continue colchicine for suspected post pericardiotomy syndrome, likely 3 months duration Continue aspirin, metoprolol, amiodarone, rosuvastatin, tamsulosin Chronic leukocytosis noted consistent with patient's history of CLL. No fevers. No rigors. Needs outpatient cardiology follow-up next week at [facility]. I spent a total of 35 minutes on the date of service in preparation, delivery, and documentation of the care provided to this patient excluding any time spent in the performance of separately billed services. This visit was a split-shared visit with the substantive portion of the medical decision making performed by the supervising bander operator/billing provider. Admission and Anticipated Discharge Date Admission Date: February 09, 2024 Subjective Patient seen and examined. Chart, medications, and telemetry reviewed. at bedside. Anxious for discharge. No chest pain. No palpitations. No shortness of breath. Chronically sleeping on his side. Denies orthopnea or PND. Lower extremity peripheral edema noted. Telemetry: Converting from atrial fibrillation/flutter on February 13, 2024 12:29:00, maintaining sinus rhythm thereafter, currently sinus rhythm in the 60s. Review of Systems Review of Systems: Complete Review of Systems is as stated above, negative, or noncontributory. Physical Exam Physical Exam: General: A&Ox3. NAD. Neck fused. HENT: Normocephalic. Atraumatic. Eyes: PER. Conjunctiva pink, sclera clear. Neck: JVD. Heart: RRR. Grade I/ systolic murmur. No rub. Lungs: Absent breath sounds 1/3 up on the right. Clear to auscultation on the left Abdomen: Two stab wounds to the epigastric area look OK. +BS. Soft. Nontender. No masses or organomegaly. Extremities: 1+ pretibial edema. Endoscopic vein harvest site on the left looks OK. No clubbing. No cyanosis Limited neurological examination is without focal deficits. Pulses: radial=2/4, posterior tibial=2/4. Results & Data Vital Signs (Past 12 Hours) Vital Signs Temp Pulse Pulse Pulse Resp BP Pulse Ox 02/14/24 11:00 36.5 C 63 67 20 131/65 96 02/14/24 08:00 36.8 C 75 77 18 125/71 93 02/14/24 07:28 02/14/24 07:00 66 02/14/24 03:05 36.9 C 66 17 111/67 95 O2 Del Method 02/14/24 11:00 Room Air 02/14/24 08:00 Room Air 02/14/24 07:28 Room Air 02/14/24 07:00 02/14/24 03:05 Room Air Laboratory Results Cardiac Enzymes 02/14/24 Range/Units 06:17 AST 20 (13-39) U/L CBC 02/14/24 Range/Units 06:17 WBC 54.16 H* (4.8-10.8) K/ul RBC 3.05 L (4.70-6.10) M/uL Hgb 9.4 L (14.0-18.0) g/dl Hct 30.5 L (42.0-52.0) % Plt Count 208 (130-400) K/uL Comprehensive Metabolic Panel 02/14/24 Range/Units 06:17 Sodium 136 (136-145) mmol/L Potassium 4.4 (3.5-5.1) mmol/L Chloride 102 (98-107) mmol/L Carbon Dioxide 29 (21-32) mmol/L BUN 17 (6-23) mg/dl Creatinine 0.64 (0.6-1.4) mg/dl Glucose 135 H (70-99(Fasting)) mg/dl Calcium 8.2 L (8.6-10.3) mg/dl Direct Bilirubin 0.2 (0-0.2) mg/dl AST 20 (13-39) U/L ALT 33 (7-52) U/L Alkaline Phosphatase 92 (34-104) U/L Total Protein 5.5 L (6.0-8.3) gm/dl Albumin 3.3 L (3.4-5.0) gm/dl Intake and Output 02/14/24 02/14/24 02/14/24 06:59 14:59 22:59 Intake Total 237.9 / 1255.763 50 / 50 Output Total 600 / 1750 Balance -362.1 / -494.237 50 / 50 Intake: IV 87.9 / 480.763 50 / 50 Amiodarone / D5w 360 mg In 200 87.9 / 130.763 ml @ 0.5 MG/MIN 16.667 mls/hr IV .Q12H BREANNA Rx#:[id number] cefTRIAXone SODIUM 2,000 mg In 50 / 50 50 ml @ 100 mls/hr IV Q24H BREANNA Rx#:[id number] Oral 150 / 775 Output: Urine 600 / 1750 Other: Weight 107.1 kg Weight Measurement Method Standing Scale
--- NOTE | 2024-02-14 15:28 | Discharge Summary ---
Date of Service February 14, 2024 Admission HPI Per Admitting Provider This is a 68 y/o male with CAD s/p recent CABG, aortic stenosis s/p recent AVR, CLL, DM2, ALIE (not using CPAP), dyslipidemia, and other history as outlined who presents to the ED today with progressive LE edema and worsening dyspnea on exertion since being discharged after recent surgery. Pt recently underwent CABG x 4 and AVR on 01/29/24. His post-operative course was significant for developed of atrial fibrillation with RVR on 01/30, treated with amiodarone gtt and addition of amiodarone 400 mg TID with no recurrence. He was discharged home on 02/01. Since discharge, he has noted gradual onset of LE edema that is worsening, even with diuretics being increased to BID. He also notes shortness of breath with lying flat or with exertion although not at rest, >10 lb weight gain since discharge last week. His diuretics were titrated up over the last few days with increase of furosemide to 80 mg in the AM and 40 mg in the PM starting yesterday, but this has not helped dramatically. He did take the 80 mg of furosemide this morning. He called CT surgery today due to his symptoms and they recommended pt be evaluated in the ED. Pt denies issues with edema or fluid retention before his surgery. No documented fevers, chills, sweats, N/V. Appetite is good. No difficulty with moving bowels or urination. His incisional pain is gradually improving but is not completely resolved. Over the last 24 hours, he has noted difficulty taking a deep breath and notes that his values on the incentive spirometer have actually worsened today. He denies cough other than an episode of coughing yesterday when he was eating broccoli. He has noted lightheadedness but denies syncope. Admission Exam Per Admitting Provider General: awake, alert, NAD HEENT: no scleral icterus, moist oral mucosa Neck: trachea midline Heart: regular Lungs: diminished BS at bases Abdomen: soft, obese, +BS, NT Extremities: 2-3+ pitting edema bilateral LE to just above knees, areas of ecchymosis noted Skin: no jaundice Neurologic: moving all extremities, Ox3, no confusion or dysarthria Principal Diagnosis Acute heart failure with preserved ejection fraction Pericardial effusion Pleural effusion status post bilateral thoracentesis Paroxysmal Afib/Aflutter Possible Pericardiotomy syndrome Discharge Exam Constitutional + well hydrated; no acute distress Eyes PERRL, conjunctivae normal, anicteric sclerae ENMT external ear and nose normal, oropharynx normal Respiratory Not in resp distress, on room air, diminished breath sounds lung bases Cardiovascular Rate/Rhythm: regular rate and regular rhythm Gastrointestinal (Abdomen) normal bowel sounds, soft, nontender, no hepatosplenomegaly Musculoskeletal +Pedal edema Neurologic PERRL, EOMI, accommodation nl, no face palsy, no dysarthria Psychiatric A+Ox3, euthymic affect Discharge Data Allergies Allergy/AdvReac Type Severity Reaction Status Date / Time amoxicillin AdvReac Gastrointestinal Verified 02/09/24 11:49 Upset Consultations 02/09/24 11:41 ED Decision to Admit Stat 02/09/24 12:36 Consult Cardiology Routine 02/11/24 15:45 Consult Pulmonology Routine Ordered Studies 02/09/24 18:26 CT head/brain wo con Stat 02/11/24 15:54 US point of care ultrasound Urgent 02/11/24 23:53 CT angio chest PE protocol Stat 02/12/24 16:34 IR thoracentesis wo tube US Routine 02/13/24 10:30 IR thoracentesis wo tube US Routine Hospital Course (1) Paroxysmal atrial fibrillation: (2) Pericardial effusion: (3) Acute heart failure with preserved ejection fraction (HFpEF): (4) Shortness of breath: (5) CLL (chronic lymphocytic leukemia): (6) Diabetes mellitus type 2 in obese: Plan 68 y/o male with PMH of CAD s/p recent CABG, aortic stenosis s/p recent AVR, CLL, DM2, ALIE (not using CPAP), dyslipidemia presented to the ED 02/08 with progressive LE edema and worsening dyspnea on exertion since being discharged after recent CABGx4/AVR. Weight is up 10-12 lbs from recent discharge. BNP elevated at 499, initial trop 30.6, repeat 28.2. Echo done in the ED showed pericardial effusion but no tamponade, preserved EF. He is being managed for the following: Acute heart failure with preserved ejection fraction (HFpEF): Pericardial effusion, possible post pericardiotomy syndrome Pleural effusion BNP elevated at presentation. Weight was up by 10-12 lbs. ECHO w/ EF of 60-65%; no regional WMA, small circumferential pericardial effusion, no tamponade. Was managed with IV lasix per Cardiology S/P Right thoracentesis of 1.2L on 02/12/24 S/P Left thoracentesis of 800cc on 02/13/24 Was treated with colchicine inpatient Discussed with Winston See with Cardiology today Recommends discharging on Lasix 40mg BID, colchicine for 1-3 months PCP/Cardiology need to monitor for possible drug interactions/side effects and adjust as needed since patient is on amiodarone as well Possible pneumonia on Admitting CXR which noted b/l pl effusion and bibasilar densities s/o pna. Recent surgery is risk factor for pna. Treated with ceftriaxone and doxycycline inpatient for 5 days Paroxysmal Afib Overnight of 02/12/24 CT PE was negative Had been flipping into Afib/Aflutter during hospital stay Got IV amio gtt till this morning Converted back from Aflutter to sinus on 02/13/24 at 12.28PM Currently in sinus Cards recommends holding off anticoag at this time in view of pericardial effusion and to continue po amiodarone 200mg daily Diabetes mellitus type 2 in obese: Chronic, stable Continue home antidiabetic regimen Obstructive sleep apnea: Not currently on CPAP and denies need for retrial of this at this time CLL (chronic lymphocytic leukemia): Chronic, stable Follows with oncology Q4 months GERD (gastroesophageal reflux disease): Chronic, stable Continue once daily PPI BPH (benign prostatic hyperplasia): Chronic, stable Continue tamsulosin Dyslipidemia: Continue statin therapy Total Time Total Time Spent Total Time Spent (In Minutes): 40 Total Time Includes: Examination of the Patient, Discharge Planning, Medication Reconciliation and Communication With Other Providers Discharge Plan Discharge Items Patient Disposition: Home - Self-Care Reason For Visit: HEART FAILURE Discharge Diagnosis: Acute heart failure with preserved ejection fraction Pericardial effusion Pleural effusion status post bilateral thoracentesis Paroxysmal Afib/Aflutter Possible Pericardiotomy syndrome Activity: Resume your previous activity Non-emergency contact: Primary Care Provider and Vice President [employer] Call non-emergency contact if: you have any medication questions and your symptoms worsen Follow-up/Referrals: Winston Luna MD [Primary Care Provider] - Diet: Carb Consistent or DM2, Heart Healthy and Low Sodium (2gm) Fluids: 2000ml (8 cups) Addtl Attending Provider Instructions: Mr Castro You presented to the hospital with shortness of breath and leg swelling. You were evaluated and treated for the above listed diagnoses. You are being discharged on colchicine for about 1-3 months Please take your lasix 40mg twice a day for now Please continue your amiodarone and other home medications as prescribed. Please ensure follow up with your Vice President [employer] Improvement within the week It was a pleasure taking care of you. Pending Studies at Discharge: No Stand-Alone Forms: My [facility], Smoking Cessation Medications and DC Order Prescriptions: New colchicine [Colcrys] 0.6 mg Tablet 0.6 mg PO BID Qty: 60 0RF Continued multivitamin Tablet 1 tab PO QAM metformin 1,000 mg tablet 1,000 mg PO BID fluticasone propionate 50 mcg/actuation [place],Suspension 2 spray INTRANASAL DAILY Rx Instructions: administer into each nostril rosuvastatin 20 mg Tablet 20 mg PO HS Rx Instructions: 1 BID X 1 WEEK; THEN FINISH OUT omeprazole 20 mg Tablet,Delayed Release (Dr/Ec) 20 mg PO DAILY dapagliflozin propanediol 10 mg Tablet 10 mg PO QAM Ozempic 2 mg/dose (8 mg/3 mL) Pen Injector 1 mg SUBCUT WK Rx Instructions: SUNDAYS repaglinide 2 mg tablet 4 mg PO HS potassium chloride 10 mEq tablet extended release 10 meq PO BID Rx Instructions: Be sure to take Potassium when taking Furosemide tamsulosin 0.4 mg capsule 0.4 mg PO DAILY metoprolol succinate 25 mg tablet extended release 24 hr 25 mg PO QAM oxycodone 5 mg tablet 5 mg PO Q4H PRN (Reason: Severe Pain (Scale Score 7-10)) aspirin 81 mg tablet,delayed release (DR/EC) 81 mg PO QAM Changed amiodarone 200 mg tablet 200 mg PO DAILY Qty: 30 0RF Rx Instructions: 200 mg orally; furosemide 40 mg tablet 40 mg PO BID Qty: 0 0RF Rx Instructions: 40 mg orally; Discharge Orders: Discharge Order- CHF (Routine); Ordered 02/14/24 Ordered By: Summer Andrews Admission Data Admit Date/Time: 02/09/24 12:01 Attending Provider: Summer Andrews I. Admit Provider: Bacilio Morejon Primary Care Provider: Winston Luna Other Providers: Bacilio Morejon; Yobany Ellington; Beth Olivares; Sonny Odell Other Interventions: Discharge Summary Assessment (RN) Last Done: 02/14/24 15:38
[2024-02-14] MEDS ORDERED: ROSUVASTATIN CALCIUM 10 MG TAB PO SCH (21:00)
--- NOTE | 2024-02-15 07:16 | Electrocardiogram Report ---
Test Reason : Blood Pressure : / mmHG Vent. Rate : 066 BPM Atrial Rate : 066 BPM P-R Int : 192 ms QRS Dur : 124 ms QT Int : 464 ms P-R-T Axes : 000 029 003 degrees QTc Int : 486 ms Normal sinus rhythm Cannot rule out Inferior infarct , age undetermined Abnormal ECG Confirmed by Suman Tao ([id number] on 02/15/2024 7:16:40 AM Referred By: Bacilio Morejon Confirmed By:Wilfred Tao
== END 2024-02-14 16:44 | disposition home or self-care (01) | DRG 291 ==
LOC: ED 09:38 → SUATTDRO 12:01 → EDINP 12:01 → 2S 12:38